=== PATIENT | female | born 1975 | race Caucasian/White ===

== ENCOUNTER 2016-11-27 17:22 | Inpatient (IN) | payer OTHER, MEDICARE ==
[~2016-11-27] VITALS: Ht 160 cm; Wt 70.4 kg
[~2016-11-27 17:22] MED LIST: ACET500T33 PO; ACID1TAB14 PO; ACYC200C PO; ALPR0.25; AMLO10TA2 PO; BENZ100C2 PO; CEFA2PLA9 IV; CLON0.2T PO; CLON0.3T PO; DARB60DI SQ; DIAZ2TAB3; DICL1PAT4 TD; DICY20TA3 PO; DIPH50CA62 PO; FLUT1DIS3 IH; FOLI1CAP10 PO; FURO40TA4 PO; FURO80TA3 PO; FURO80TA72 PO; HYDR-2666; HYDR-2762 PO; ISOS30TA4 PO; LEVO500T38 PO; LIDO30CR TP; LISI10TA2 PO; LOPE2CAP PO; LORA0.5T; LORA10CA; LORA10CA PO; LORA1TAB PO; METH750T2 PO; NYST1000 PO; ONDA-36 PO; OXYC10TA PO; PARO20TA2 PO; PRED-220 PO; PRED20TA PO; PREG50CA PO; PROAIR HFA8.5 GM INH; SEVE800T9; SEVE800T9 PO; SODI15OR PO; [UNRECOGNIZED DRUG - OTHER] SQ; acyclovir; sleeping pill PO
[2016-11-27] MEDS ORDERED: IV NORMAL SALINE 1000ML BAG 1,000 ML IV SCH (19:01)
[2016-11-27] MEDS ORDERED: methylPREDNISolone SOD SUCC PF 125 MG/2 ML VIAL. IV ONE (19:30)
[2016-11-27] MEDS ORDERED: IPRATRPIUM/ALBUTEROL 0.5/2.5MG 3 ML NEBU. NEB ONE (19:30)
[2016-11-27 19:57] LABS: CALCIUM 8.2 mg/dL (8.5-10.1); CREATININE 4.3 mg/dL (0.6-1.0); GFR 11.4; POTASSIUM 3.7 mmol/L (3.5-5.1)
[2016-11-27 20:03] LABS: ALBUMIN 3.1 g/dL (3.4-5.0); ALBUMIN/GLOBULIN RATIO 0.9 (1.0-1.7); BASO % 0 % (0-3); EOS % 1 % (0-3); HEMATOCRIT 31.4 % (36.0-47.0); HEMOGLOBIN 9.4 g/dL (12.0-15.5); LYMPH # 1.5 x10^3/uL (1.0-4.8); LYMPH % 19 % (24-48); MEAN CORPUSCULAR HEMOGLOBIN 31 pg (25-35); MEAN CORPUSCULAR HGB CONC 30 g/dL (31-37); MEAN CORPUSCULAR VOLUME 104 fL (79-100); MONO % 7 % (0-9); NEUT % 73 % (31-73); PLATELET COUNT 140 x10^3/uL (140-400); RED BLOOD COUNT 3.03 x10^6/uL (3.50-5.40); RED CELL DISTRIBUTION WIDTH 20.3 % (11.5-14.5); TOTAL BILIRUBIN 0.9 mg/dL (0.2-1.0); TOTAL PROTEIN 6.7 g/dL (6.4-8.2); WHITE BLOOD COUNT 7.7 x10^3/uL (4.0-11.0)
[2016-11-27 20:11] LABS: CKMB INDEX 4.2 % (0-4); CKMB MASS 3.9 ng/mL (0.0-3.6); CREATINE KINASE 92 U/L (26-192)
[2016-11-27] MEDS ORDERED: HYDROCODONE/APAP 7.5/325MG TABLET. PO ONE (20:15)
[2016-11-27 20:35] LABS: ANISOCYTOSIS MOD; HYPOCHROMIA SLIGHT; PLT ESTIMATE ADEQUATE (ADEQUATE); POIKILOCYTOSIS SLIGHT; POLYCHROMASIA SLIGHT
--- NOTE | 2016-11-27 20:52 | PHYS DOC ---
Past Medical History Past Medical History: Anxiety, Asthma, Cancer, Depression, Fibromyalgia, Hypertension, Pneumonia, Renal Disease, Renal Failure, Other Additional Past Medical Histor: Dialysis,Multiple Myeloma with Chemotherapy Past Surgical History: Cholecystectomy, Gastric Bypass, Tubal ligation, Other Additional Past Surgical Histo: L) upper arm fistula placement, Bone Marrow Transplant Alcohol Use: None Drug Use: None Adult General Chief Complaint Chief Complaint: SHORTNESS OF BREATH HPI HPI Patient is a 41 year old female who presents with complaint of shortness of breath. The patient states that over the past 2 days she has had worsening symptoms. The patient states that she is had significant worsening difficulty breathing and cough. Patient denies any fevers or chest pain at this time. The patient has history of end-stage renal disease and has dialysis on Sunday, Sunday, and Sunday. Patient states that she did get dialysis earlier today before coming to the emergency department. Patient follows a Dr. Howard for primary care. Patient is currently undergoing treatment for multiple myeloma. Review of Systems Review of Systems Constitutional: Denies fever or chills [] Eyes: Denies change in visual acuity, redness, or eye pain [] HENT: Denies nasal congestion or sore throat [] Respiratory: Cough, shortness of breath [] Cardiovascular: Denies chest pain [] GI: Denies abdominal pain, nausea, vomiting, bloody stools or diarrhea [] : Denies dysuria or hematuria [] Musculoskeletal: Denies back pain or joint pain [] Integument: Denies rash or skin lesions [] Neurologic: Denies headache, focal weakness or sensory changes [] Endocrine: Denies polyuria or polydipsia [] Current Medications Current Medications Current Medications Medications (Trade) Dose Ordered Sig/Jamila Start Time Stop Time Status Last Admin Dose Admin Acetaminophen (Tylenol) 650 mg PRN Q4HRS PRN 11/27/16 22:30 11/28/16 22:29 Acetaminophen/ Hydrocodone Bitart (Lortab 7.5/325) 1 tab 1X ONCE 11/27/16 20:15 11/27/16 20:17 DC 11/27/16 20:29 1 TAB Albuterol/ Ipratropium (Duoneb) 3 ml RTQID 11/28/16 08:00 11/29/16 07:59 Amlodipine Besylate (Norvasc) 10 mg 1X ONCE 11/27/16 21:15 2/6/17 21:16 DC 11/27/16 21:08 10 MG Clonidine HCl (Catapres) 0.3 mg 1X ONCE 11/27/16 21:15 11/27/16 21:16 DC 11/27/16 21:09 0.3 MG Diphenhydramine HCl (Benadryl) 25 mg 1X ONCE 11/27/16 23:00 11/27/16 23:01 DC 11/27/16 23:30 25 MG Fentanyl Citrate (Fentanyl 2ml Vial) 50 mcg PRN Q2HR PRN 11/27/16 22:30 11/28/16 22:29 11/27/16 23:30 50 MCG Lisinopril (Prinivil) 10 mg 1X ONCE 11/27/16 21:15 11/27/16 21:16 DC 11/27/16 21:09 10 MG Methylprednisolone Sodium Succinate (Solu-Medrol 40mg Vial) 60 mg Q6HRS 11/28/16 00:00 Methylprednisolone Sodium Succinate (Solu-Medrol 125mg Vial) 125 mg 1X ONCE 11/27/16 19:30 11/27/16 19:31 DC 11/27/16 19:49 125 MG Ondansetron HCl (Zofran) 4 mg PRN Q8HRS PRN 11/27/16 22:30 11/28/16 22:29 Sodium Chloride (Iv Sodium Chloride 0.9% 1000ml Bag) 1,000 ml @ 100 mls/hr Q10H 11/27/16 19:01 11/28/16 05:00 11/27/16 19:49 100 MLS/HR Allergies Allergies Allergies Coded Allergies Type Severity Reaction Last Updated Verified Sulfa (Sulfonamide Antibiotics) Allergy Intermediate Hives 04/26/16 Yes sucralose Allergy Intermediate hives & itching 04/26/16 Yes codeine Adverse Reaction Intermediate ITCHING, PREVIOUSLY TOLERATED DILAUDID Yes Physical Exam Physical Exam Constitutional: Well developed, well nourished, no acute distress, non-toxic appearance. [] HENT: Normocephalic, atraumatic, bilateral external ears normal, oropharynx moist, no oral exudates, nose normal. [] Eyes: PERRLA, EOMI, conjunctiva normal, no discharge. [] Neck: Normal range of motion, no tenderness, supple, no stridor. [] Cardiovascular:Heart rate regular rhythm, no murmur [] Lungs & Thorax: Bilateral breath sounds clear to auscultation [] Abdomen: Bowel sounds normal, soft, no tenderness, no masses, no pulsatile masses. [] Skin: Warm, dry, no erythema, no rash. [] Back: No tenderness, no CVA tenderness. [] Extremities: No tenderness, no cyanosis, no clubbing, ROM intact, no edema. [] Neurologic: Alert and oriented X 3, normal motor function, normal sensory function, no focal deficits noted. [] Psychologic: Affect normal, judgement normal, mood normal. [] Current Patient Data Vital Signs Vital Signs Date Time Temp Pulse Resp B/P Pulse Ox O2 Delivery O2 Flow Rate FiO2 11/27/16 23:30 16 11/27/16 22:08 105 177/92 96 Room Air 11/27/16 21:06 4 11/27/16 19:18 98.9 98.9 Lab Values Laboratory Tests Test 11/27/16 19:35 11/27/16 21:30 White Blood Count 7.7x10^3/uL (4.0-11.0) Red Blood Count 3.03x10^6/uL (3.50-5.40) L Hemoglobin 9.4g/dL (12.0-15.5) L Hematocrit 31.4% (36.0-47.0) L Mean Corpuscular Volume 104fL (79-100) H Mean Corpuscular Hemoglobin 31pg (25-35) Mean Corpuscular Hemoglobin Concent 30g/dL (31-37) L Red Cell Distribution Width 20.3% (11.5-14.5) H Platelet Count 140x10^3/uL (140-400) Neutrophils (%) (Auto) 73% (31-73) Lymphocytes (%) (Auto) 19% (24-48) L Monocytes (%) (Auto) 7% (0-9) Eosinophils (%) (Auto) 1% (0-3) Basophils (%) (Auto) 0% (0-3) Neutrophils # (Auto) 5.6x10^3uL (1.8-7.7) Lymphocytes # (Auto) 1.5x10^3/uL (1.0-4.8) Monocytes # (Auto) 0.5x10^3/uL (0.0-1.1) Eosinophils # (Auto) 0.1x10^3/uL (0.0-0.7) Basophils # (Auto) 0.0x10^3/uL (0.0-0.2) Platelet Estimate Adequate (ADEQUATE) Polychromasia Slight Hypochromasia Slight Poikilocytosis Slight Anisocytosis Mod Sodium Level 140mmol/L (136-145) Potassium Level 3.7mmol/L (3.5-5.1) Chloride Level 102mmol/L (98-107) Carbon Dioxide Level 24mmol/L (21-32) Anion Gap 14 (6-14) Blood Urea Nitrogen 32mg/dL (7-20) H Creatinine 4.3mg/dL (0.6-1.0) H Estimated GFR (Cockcroft-Gault) 11.4 BUN/Creatinine Ratio 7 (6-20) Glucose Level 104mg/dL (70-99) H Calcium Level 8.2mg/dL (8.5-10.1) L Total Bilirubin 0.9mg/dL (0.2-1.0) Aspartate Amino Transferase (AST) 28U/L (15-37) Alanine Aminotransferase (ALT) 18U/L (14-59) Alkaline Phosphatase 158U/L (46-116) H Creatine Kinase 92U/L (26-192) Creatine Kinase MB (Mass) 3.9ng/mL (0.0-3.6) H Creatine Kinase MB Relative Index 4.2% (0-4) H Troponin I Quantitative 0.084ng/mL (0.000-0.055) CO-Pkv-A-Type Natriuretic Peptide > 60529tv/mL (0-124) H Total Protein 6.7g/dL (6.4-8.2) Albumin 3.1g/dL (3.4-5.0) L Albumin/Globulin Ratio 0.9 (1.0-1.7) L Influenza Type A Antigen Negative (NEGATIVE) Influenza Type B Antigen Negative (NEGATIVE) Laboratory Tests 11/27/16 19:35 Laboratory Tests 11/27/16 19:35 EKG EKG Interpreted by me: Heart rate 98, sinus tachycardia, normal intervals, normal axis, no acute ST/T-wave abnormalities present [] Radiology/Procedures Radiology/Procedures One view AP chest x-ray interpreted by me: Bilateral pleural effusions, right lower lobe atelectasis, cardiomegaly [] Course & Med Decision Making Course & Med Decision Making Pertinent Labs and Imaging studies reviewed. (See chart for details) Patient was treated with DuoNeb and Solu-Medrol in the emergency department. On reevaluation, patient still displays increased work of breathing with mild improvement posttreatment. Due to persistent shortness of breath, the patient will be admitted to the hospital for further treatment. Patient is also noted to have accelerated hypertension. Patient was treated with lisinopril, amlodipine, and clonidine which is her normal evening meds. This resulted in a 25% reduction in blood pressure. Patient will have continued management of blood pressure while in hospital. I spoke with Dr. Gunderson who is on-call for Dr. Howard and he accepted care patient in hospital. Dragon Disclaimer Dragon Disclaimer This electronic medical record was generated, in whole or in part, using a voice recognition dictation system. Departure Departure Impression: Primary Impression: COPD with acute exacerbation Additional Impressions: Accelerated hypertension End stage renal disease Bilateral pleural effusion Disposition: ADMITTED INPATIENT Admitting Physician: Geri Cardenas Condition: GUARDED Referrals: GERI HOWARD MD (PCP) Problem Qualifiers CALVIN GARCIA MD Nov 27, 2016 20:52
[2016-11-27] MEDS ORDERED: AMLODIPINE BESYLATE 5 MG TABLET PO ONE (21:15)
[2016-11-27] MEDS ORDERED: CLONIDINE HCL 0.1 MG TABLET PO ONE (21:15)
[2016-11-27] MEDS ORDERED: LISINOPRIL 10 MG TABLET PO ONE (21:15)
[2016-11-27 22:10] LABS: OBC FLU VALID
[2016-11-27] MEDS ORDERED: ACETAMINOPHEN 325 MG TABLET. PO PRN (22:30)
[2016-11-27] MEDS ORDERED: DIPHENHYDRAMINE 50 MG/ML VIAL IVP ONE (23:00)
[2016-11-27] MEDS: FENTANYL PF 100 MCG/2 ML VIAL. IV PRN (23:30)
--- NOTE | 2016-11-28 00:29 | ACF ---
Admission Forms Criteria COPD Clinical Indications for Admission to Inpatient Care (Place 'X' for any and all applicable criteria): Admission is indicated for ANY ONE of the following (1)(2)(3): [X]I. Acute exacerbation by high-risk comorbidity (e.g., pneumonia, dysrhythmia, heart failure, pleural effusion, pneumothorax) or severe underlying COPD (e.g., steroid dependent) [ ]II. Inpatient admission required rather than observation care (see Chronic Obstructive Pulmonary Disease: Observation Care) because of ANY ONE of the following: [ ]a) New or pre-existing signs or symptoms of COPD (eg, dyspnea or Tachypnea at rest or with minimal activity) that persist despite outpatient and observation care treatment [ ]b) New-onset hypoxemia (room air SaO2 less than 90%, PO2 less than 60 mm Hg (8.0 kPa)) that persists despite outpatient and observation care treatment [ ]c) Worsening of pre-existing hypoxemia (eg, new or increased requirement for supplemental oxygen to maintain oxygenation at baseline level) that persists despite outpatient and observation care treatment, with oxygen treatment needs performable only in acute inpatient setting [ ]d) Hypercarbia (PCO2 greater than 40 mm Hg (5.3 kPa))-induced respiratory acidosis (pH less than 7.35) that persists despite outpatient and observation care treatment [ ]e) Supplemental oxygen or respiratory treatments for over 24 hours that are performable only in acute inpatient setting [ ]f) Chest tube placement with active evacuation (e.g., suction, drainage) (5) [ ]g) Other condition, treatment or monitoring requiring inpatient admission [ ]III. Planned invasive surgical or diagnostic procedures requiring acute- care hospitalization [ ]IV. Acute respiratory failure (e.g., uncompensated hypercarbia, severe hypoxemia) [ ]V. Severe comorbid condition (e.g., severe steroid myopathy, acute vertebral fracture) that has acutely worsened pulmonary function [ ]. Confusion state, lethargy, obtundation, stupor or coma Extended stay beyond goal length of stay may be needed for (31)(32): [ ]a ) Respiratory Failure. [ ]b) Severe or persisting hypoxemia or hypercarbia [ ]c) Severe or persistent dyspnea [ ]d) Comorbidities (e.g. chronic heart failure, atrial fibrillation with rapid response, pneumonia) [ ]e) Malnutrition The original [facility] content created by [facility] has been revised. The portions of the content which have been revised are identified through the use of italic text or in bold, and [facility] has neither reviewed nor approved the modified material. All other unmodified content is copyright [facility]. Please see references footnoted in the original [facility] edition 2016 Admission Criteria Met?: Yes NARENDRA OWENS Nov 28, 2016 00:29
[2016-11-28 01:35] VITALS: BP 170/94
[2016-11-28] MEDS: DIPHENHYDRAMINE 50 MG/ML VIAL IVP PRN ×3 (02:02→15:45)
[2016-11-28] MEDS: FENTANYL PF 100 MCG/2 ML VIAL. IV PRN ×7 (02:03→21:31)
[2016-11-28] MEDS: methylPREDNISolone SOD SUCC PF 40 MG/ML VIAL. IV SCH ×5 (02:03→23:48)
[2016-11-28 03:00] VITALS: BP 163/89
[2016-11-28] MEDS: ALBUTEROL SULFATE 2.5 MG/3 ML NEBU. NEB PRN (05:17)
[2016-11-28 07:06] LABS: BASO % 0 % (0-3); EOS % 0 % (0-3); HEMATOCRIT 32.9 % (36.0-47.0); HEMOGLOBIN 9.8 g/dL (12.0-15.5); LYMPH # 0.4 x10^3/uL (1.0-4.8); LYMPH % 11 % (24-48); MEAN CORPUSCULAR HEMOGLOBIN 31 pg (25-35); MEAN CORPUSCULAR HGB CONC 30 g/dL (31-37); MEAN CORPUSCULAR VOLUME 103 fL (79-100); MONO % 1 % (0-9); NEUT % 89 % (31-73); PLATELET COUNT 140 x10^3/uL (140-400); RED BLOOD COUNT 3.19 x10^6/uL (3.50-5.40); RED CELL DISTRIBUTION WIDTH 20.4 % (11.5-14.5); WHITE BLOOD COUNT 3.5 x10^3/uL (4.0-11.0)
[2016-11-28] MEDS ORDERED: ACETAMINOPHEN 500 MG TABLET PO PRN (07:15)
[2016-11-28] MEDS ORDERED: LOPERAMIDE 2 MG CAPSULE PO PRN (07:15)
[2016-11-28] MEDS ORDERED: NON FORMULARY ITEM (Ondansetron Hcl 8 MG) PO PRN (07:15)
[2016-11-28] MEDS ORDERED: LIDOCAINE/PRILOCAINE TOPICAL CREAM 5GM TUBE. TP PRN (07:15)
[2016-11-28 07:41] LABS: CALCIUM 8.5 mg/dL (8.5-10.1); CREATININE 4.8 mg/dL (0.6-1.0); POTASSIUM 4.1 mmol/L (3.5-5.1)
[2016-11-28] MEDS ORDERED: DICYCLOMINE HCL 10 MG CAPSULE PO PRN (07:45)
[2016-11-28 07:59] VITALS: BP 183/99
[2016-11-28] MEDS: IPRATRPIUM/ALBUTEROL 0.5/2.5MG 3 ML NEBU. NEB SCH ×4 (08:22→19:22)
[2016-11-28] MEDS: BUDESONIDE 0.5 MG/2 ML NEBU NEB SCH ×2 (08:22→19:22)
--- NOTE | 2016-11-28 08:25 | RAD ---
Indication shortness of air. A single view of the chest was obtained and is compared to an examination 2 months earlier. There is generalized cardiomegaly. Similar. There is perhaps mild pulmonary vascular congestion but pulmonary infiltrates, seen previously, appear improved. There are bilateral pleural effusions. Volume loss in the left lower lobe may reflect atelectasis associated with the pleural fluid. Underlying pneumonia is not entirely excluded. IMPRESSION: Stable cardiomegaly. Suspect mild pulmonary vascular congestion. Bilateral pleural effusions. Volume loss in the left lower lobe compatible with atelectasis or pneumonia
--- NOTE | 2016-11-28 08:34 | PDOC1 ---
History and Physical Date of Admission Date of Admission DATE: 11/27/16 TIME: 21:28 Identification/Chief Complaint Chief Complaint SOA Source Source: Patient Past Medical History Cardiovascular: HTN Pulmonary: Asthma, Pneumonia, Other CENTRAL NERVOUS SYSTEM: Other GI: GERD, Hemorrhoids, Irritable bowel disease Heme/Onc: Anemia NOS, Cancer Hepatobiliary: No pertinent hx Psych: Anxiety, Depression Musculoskeletal: Osteoarthritis, Other Rheumatologic: Fibromyalgia Infectious disease: Other Renal/: Chronic renal failure, Urinary Incontinence Endocrine: Hyperparathyroidism Past Surgical History Past Surgical History: Cholecystectomy, Tubal Ligation, Other Family History Family History: Hypertension, Osteo Arthiritis Social History ALCOHOL: none Drugs: None Current Problem List Problem List Problems Medical Problems: (1) Accelerated hypertension Status: Acute (2) Bilateral pleural effusion Status: Acute (3) COPD with acute exacerbation Status: Acute (4) End stage renal disease Status: Acute Problems: Current Medications Current Medications Current Medications Sodium Chloride (Iv Sodium Chloride 0.9% 1000ml Bag) 1,000 ml @ 100 mls/hr Q10H IV Last administered on 11/27/16 19:49; Start 11/27/16 at 19:01; Stop at 05:00; Status DC Albuterol/ Ipratropium (Duoneb) 6 ml 1X ONCE NEB Last administered on 19:10; Start 11/27/16 at 19:30; Stop 11/27/16 at 19:31; Status DC Methylprednisolone Sodium Succinate (Solu-Medrol 125mg Vial) 125 mg 1X ONCE IV Last administered on 11/27/16 19:49; Start 11/27/16 at 19:30; Stop 11/27/16 at 19:31; Status DC Acetaminophen/ Hydrocodone Bitart (Lortab 7.5/325) 1 tab 1X ONCE PO Last administered on 11/27/16 20:29; Start 11/27/16 at 20:15; Stop 11/27/16 at 20:17; Status DC Lisinopril (Prinivil) 10 mg 1X ONCE PO Last administered on 11/27/16 21:09; Start 11/27/16 at 21:15; Stop 11/27/16 at 21:16; Status DC Amlodipine Besylate (Norvasc) 10 mg 1X ONCE PO Last administered on 11/27/16 21:08; Start 11/27/16 at 21:15; Stop 11/27/16 at 21:16; Status DC Clonidine HCl (Catapres) 0.3 mg 1X ONCE PO Last administered on 11/27/16 21:09 ; Start 11/27/16 at 21:15; Stop 11/27/16 at 21:16; Status DC Ondansetron HCl (Zofran) 4 mg PRN Q8HRS PRN IV NAUSEA/VOMITING; Start 11/27/16 at 22:30; Stop 11/28/16 at 22:29 Fentanyl Citrate (Fentanyl 2ml Vial) 50 mcg PRN Q2HR PRN IV SEVERE PAIN Last administered on 11/28/16 05:02; Start 11/27/16 at 22:30; Stop 11/28/16 at 22:29 Acetaminophen (Tylenol) 650 mg PRN Q4HRS PRN PO FEVER; Start 11/27/16 at 22:30; Stop 11/28/16 at 22:29 Albuterol/ Ipratropium (Duoneb) 3 ml RTQID NEB Last administered on 11/28/16 08 :22; Start 11/28/16 at 08:00; Stop 11/29/16 at 07:59 Methylprednisolone Sodium Succinate (Solu-Medrol 40mg Vial) 60 mg Q6HRS IV Last administered on 11/28/16 05:02; Start 11/28/16 at 00:00 Diphenhydramine HCl (Benadryl) 25 mg 1X ONCE IVP Last administered on 23:30; Start 11/27/16 at 23:00; Stop 11/27/16 at 23:01; Status DC Diphenhydramine HCl (Benadryl) 25 mg PRN Q6HRS PRN IVP ITCHING Last administered on 11/28/16 02:02; Start 11/28/16 at 02:00 Albuterol Sulfate (Ventolin Neb Soln) 2.5 mg PRN Q4HRS PRN NEB SHORTNESS OF BREATH Last administered on 11/28/16 05:17; Start 11/28/16 at 05:15 Acetaminophen (Tylenol) 500 mg PRN Q6HRS PRN PO PAIN; Start 11/28/16 at 07:15 Lactobacillus Acidophilus (Bacid, Maren-Bid) 1 tab TIDWMEALS PO ; Start 11/28/16 at 08:00 Acyclovir (Zovirax) 200 mg BID PO ; Start 11/28/16 at 09:00 Amlodipine Besylate (Norvasc) 10 mg HS PO ; Start 11/28/16 at 21:00 Clonidine HCl (Catapres) 0.3 mg TID PO ; Start 11/28/16 at 09:00 Darbepoetin Apolinar (Aranesp) 60 mcg Tu SQ ; Start 11/28/16 at 21:00 Diclofenac Epolamine (Flector) 1 patch BID TD ; Start 11/28/16 at 09:00; Status UNV Furosemide (Lasix) 80 mg TID@,,17 PO ; Start 11/28/16 at 09:00 Acetaminophen/ Hydrocodone Bitart (Lortab 7.5/325) 1 tab PRN Q4HRS PRN PO SEVERE PAIN; Start 11/28/16 at 07:15 Isosorbide Mononitrate (Imdur) 30 mg DAILY PO ; Start 11/28/16 at 09:00 Lidocaine/ Prilocaine (Emla) 1 oniel PRN QID PRN TP pain; Start 11/28/16 at 07:15 Lisinopril (Prinivil) 10 mg DAILY PO ; Start 11/28/16 at 09:00 Loperamide HCl (Imodium) 2 mg PRN Q15MIN PRN PO DIARRHEA; Start 11/28/16 at 07: 15 Lorazepam (Ativan) 1 mg PRN Q6HRS PRN PO VOMITING; Start 11/28/16 at 07:15 Methocarbamol (Robaxin) 1,500 mg PRN QID PRN PO SEVERE PAIN; Start 11/28/16 at 07:15 Paroxetine HCl (Paxil) 20 mg QHS PO ; Start 11/28/16 at 21:00 Sevelamer Carbonate (Renvela) 800 mg TIDWMEALS PO ; Start 11/28/16 at 08:00 Dicyclomine HCl (Bentyl) 20 mg PRN TID PRN PO Stomach pain; Start 11/28/16 at 07 :45 Diphenhydramine HCl (Benadryl) 50 mg QHS PO ; Start 11/28/16 at 21:00 Non-Formulary Medication 2 puff DAILY IH ; Start 11/28/16 at 09:00; Stop 11/28/16 at 09:00; Status DC Folic Acid/ Multivitamins/Vit B12 (Nephro-Sheree) 1 tab DAILY PO ; Start 11/28/16 at 09:00 Cetirizine HCl (Zyrtec) 10 mg QHS PO ; Start 11/28/16 at 21:00 Non-Formulary Medication 8 mg PRN BID PRN PO NAUSEA/VOMITING; Start 11/28/16 at 07:15 Budesonide (Pulmicort) 0.5 mg RTBID NEB Last administered on 11/28/16t 08:22; Start 11/28/16 at 08:00 Active Scripts Active Levaquin (Levofloxacin) 500 Mg Tablet 500 Mg PO Q48H Lisinopril 10 Mg Tablet 10 Mg PO DAILY 30 Days Hydrocodone-Apap 7.5-325 (Hydrocodone Bit/Acetaminophen) 1 Each Tablet 1 Tab PO PRN Q4HRS PRN 14 Days Flector (Diclofenac Epolamine) 1 Each Patch.td12 1 Patch TD BID 30 Days Aranesp Syringe (Darbepoetin Apolinar In Polysorbat) 60 Mcg/0.3 Ml Disp.syrin 60 Mcg SQ WEEKLYHS 30 Days Furosemide 80 Mg Tablet 80 Mg PO TID 30 Days Loperamide (Loperamide Hcl) 2 Mg Capsule 2 Mg PO PRN Q15MIN PRN 30 Days Isosorbide Mononitrate Er (Isosorbide Mononitrate) 30 Mg Tab.er.24h 30 Mg PO DAILY 30 Days Maren-Bid Caplet (Acidoph/L.bulg/Bif.b/S.thermop) 1 Each Tablet 1 Tab PO TIDWMEALS 30 Days Reported Lorazepam 1 Mg Tablet 1 Mg PO PRN Q6HRS PRN Renvela (Sevelamer Carbonate) 800 Mg Tablet 2 Tab PO TID Lidocaine-Prilocaine Cream (Lidocaine/Prilocaine) 30 Gm Cream..g. 1 Oniel TP UD Dicyclomine Hcl 20 Mg Tablet 1 Tab PO TID PRN Clonidine Hcl 0.3 Mg Tablet 0.3 Mg PO TID Amlodipine Besylate 10 Mg Tablet 10 Mg PO HS Renal Caps Softgel (Folic Acid/Vitamin B Comp W-C) 1 Mg Capsule 1 Cap PO DAILY Advair 250-50 Diskus (Fluticasone/Salmeterol) 1 Each Disk.w.dev 2 Puff IH DAILY Proair Hfa Inhaler (Albuterol Sulfate) 8.5 Gm Hfa.aer.ad 2 Puff INH PRN Q6HRS PRN Acyclovir 200 Mg Capsule 200 Mg PO BID Paroxetine Hcl 20 Mg Tablet 20 Mg PO QHS Nighttime Sleep Aid (Diphenhydramine Hcl) 50 Mg Capsule 50 Mg PO QHS Ondansetron Hcl 8 Mg Tablet 8 Mg PO BID PRN Methocarbamol 750 Mg Tablet 1,500 Mg PO QID PRN Tylenol Extra Strength (Acetaminophen) 500 Mg Tablet 500 Mg PO Q6HRS PRN Claritin (Loratadine) 10 Mg Capsule 10 Mg PO HS Allergies Allergies: Coded Allergies: Sulfa (Sulfonamide Antibiotics) (Verified Allergy, Intermediate, Hives, 04/26/16) sucralose (Verified Allergy, Intermediate, hives & itching, 04/26/16) codeine (Verified Adverse Reaction, Intermediate, ITCHING, PREVIOUSLY TOLERATED DILAUDID, 04/26/16) Vitals Vitals Vital Signs Date Time Temp Pulse Resp B/P Pulse Ox O2 Delivery O2 Flow Rate FiO2 11/28/16 05:50 Nasal Cannula 4.0 11/28/16 05:18 100 11/28/16 03:00 97.6 107 20 163/89 97.6 Labs Labs Laboratory Tests Test 11/27/16 19:35 11/27/16 21:30 11/28/16 06:05 White Blood Count 7.7x10^3/uL (4.0-11.0) 3.5x10^3/uL (4.0-11.0) Red Blood Count 3.03x10^6/uL (3.50-5.40) 3.19x10^6/uL (3.50-5.40) Hemoglobin 9.4g/dL (12.0-15.5) 9.8g/dL (12.0-15.5) Hematocrit 31.4% (36.0-47.0) 32.9% (36.0-47.0) Mean Corpuscular Volume 104fL (79-100) 103fL (79-100) Mean Corpuscular Hemoglobin 31pg (25-35) 31pg (25-35) Mean Corpuscular Hemoglobin Concent 30g/dL (31-37) 30g/dL (31-37) Red Cell Distribution Width 20.3% (11.5-14.5) 20.4% (11.5-14.5) Platelet Count 140x10^3/uL (140-400) 140x10^3/uL (140-400) Neutrophils (%) (Auto) 73% (31-73) 89% (31-73) Lymphocytes (%) (Auto) 19% (24-48) 11% (24-48) Monocytes (%) (Auto) 7% (0-9) 1% (0-9) Eosinophils (%) (Auto) 1% (0-3) 0% (0-3) Basophils (%) (Auto) 0% (0-3) 0% (0-3) Neutrophils # (Auto) 5.6x10^3uL (1.8-7.7) 3.1x10^3uL (1.8-7.7) Lymphocytes # (Auto) 1.5x10^3/uL (1.0-4.8) 0.4x10^3/uL (1.0-4.8) Monocytes # (Auto) 0.5x10^3/uL (0.0-1.1) 0.0x10^3/uL (0.0-1.1) Eosinophils # (Auto) 0.1x10^3/uL (0.0-0.7) 0.0x10^3/uL (0.0-0.7) Basophils # (Auto) 0.0x10^3/uL (0.0-0.2) 0.0x10^3/uL (0.0-0.2) Platelet Estimate Adequate (ADEQUATE) Polychromasia Slight Hypochromasia Slight Poikilocytosis Slight Anisocytosis Mod Sodium Level 140mmol/L (136-145) 136mmol/L (136-145) Potassium Level 3.7mmol/L (3.5-5.1) 4.1mmol/L (3.5-5.1) Chloride Level 102mmol/L (98-107) 99mmol/L (98-107) Carbon Dioxide Level 24mmol/L (21-32) 22mmol/L (21-32) Anion Gap 14 (6-14) 15 (6-14) Blood Urea Nitrogen 32mg/dL (7-20) 38mg/dL (7-20) Creatinine 4.3mg/dL (0.6-1.0) 4.8mg/dL (0.6-1.0) Estimated GFR (Cockcroft-Gault) 11.4 10.0 BUN/Creatinine Ratio 7 (6-20) Glucose Level 104mg/dL (70-99) 133mg/dL (70-99) Calcium Level 8.2mg/dL (8.5-10.1) 8.5mg/dL (8.5-10.1) Total Bilirubin 0.9mg/dL (0.2-1.0) Aspartate Amino Transf (AST/SGOT) 28U/L (15-37) Alanine Aminotransferase (ALT/SGPT) 18U/L (14-59) Alkaline Phosphatase 158U/L (46-116) Creatine Kinase 92U/L (26-192) Creatine Kinase MB (Mass) 3.9ng/mL (0.0-3.6) Creatine Kinase MB Relative Index 4.2% (0-4) Troponin I Quantitative 0.084ng/mL (0.000-0.055) DE-Hzr-I-Type Natriuretic Peptide > 65170fx/mL (0-124) Total Protein 6.7g/dL (6.4-8.2) Albumin 3.1g/dL (3.4-5.0) Albumin/Globulin Ratio 0.9 (1.0-1.7) Influenza Type A Antigen Negative (NEGATIVE) Influenza Type B Antigen Negative (NEGATIVE) Laboratory Tests Test 11/27/16 19:35 11/27/16 21:30 11/28/16 06:05 White Blood Count 7.7x10^3/uL (4.0-11.0) 3.5x10^3/uL (4.0-11.0) Red Blood Count 3.03x10^6/uL (3.50-5.40) 3.19x10^6/uL (3.50-5.40) Hemoglobin 9.4g/dL (12.0-15.5) 9.8g/dL (12.0-15.5) Hematocrit 31.4% (36.0-47.0) 32.9% (36.0-47.0) Mean Corpuscular Volume 104fL (79-100) 103fL (79-100) Mean Corpuscular Hemoglobin 31pg (25-35) 31pg (25-35) Mean Corpuscular Hemoglobin Concent 30g/dL (31-37) 30g/dL (31-37) Red Cell Distribution Width 20.3% (11.5-14.5) 20.4% (11.5-14.5) Platelet Count 140x10^3/uL (140-400) 140x10^3/uL (140-400) Neutrophils (%) (Auto) 73% (31-73) 89% (31-73) Lymphocytes (%) (Auto) 19% (24-48) 11% (24-48) Monocytes (%) (Auto) 7% (0-9) 1% (0-9) Eosinophils (%) (Auto) 1% (0-3) 0% (0-3) Basophils (%) (Auto) 0% (0-3) 0% (0-3) Neutrophils # (Auto) 5.6x10^3uL (1.8-7.7) 3.1x10^3uL (1.8-7.7) Lymphocytes # (Auto) 1.5x10^3/uL (1.0-4.8) 0.4x10^3/uL (1.0-4.8) Monocytes # (Auto) 0.5x10^3/uL (0.0-1.1) 0.0x10^3/uL (0.0-1.1) Eosinophils # (Auto) 0.1x10^3/uL (0.0-0.7) 0.0x10^3/uL (0.0-0.7) Basophils # (Auto) 0.0x10^3/uL (0.0-0.2) 0.0x10^3/uL (0.0-0.2) Platelet Estimate Adequate (ADEQUATE) Polychromasia Slight Hypochromasia Slight Poikilocytosis Slight Anisocytosis Mod Sodium Level 140mmol/L (136-145) 136mmol/L (136-145) Potassium Level 3.7mmol/L (3.5-5.1) 4.1mmol/L (3.5-5.1) Chloride Level 102mmol/L (98-107) 99mmol/L (98-107) Carbon Dioxide Level 24mmol/L (21-32) 22mmol/L (21-32) Anion Gap 14 (6-14) 15 (6-14) Blood Urea Nitrogen 32mg/dL (7-20) 38mg/dL (7-20) Creatinine 4.3mg/dL (0.6-1.0) 4.8mg/dL (0.6-1.0) Estimated GFR (Cockcroft-Gault) 11.4 10.0 BUN/Creatinine Ratio 7 (6-20) Glucose Level 104mg/dL (70-99) 133mg/dL (70-99) Calcium Level 8.2mg/dL (8.5-10.1) 8.5mg/dL (8.5-10.1) Total Bilirubin 0.9mg/dL (0.2-1.0) Aspartate Amino Transf (AST/SGOT) 28U/L (15-37) Alanine Aminotransferase (ALT/SGPT) 18U/L (14-59) Alkaline Phosphatase 158U/L (46-116) Creatine Kinase 92U/L (26-192) Creatine Kinase MB (Mass) 3.9ng/mL (0.0-3.6) Creatine Kinase MB Relative Index 4.2% (0-4) Troponin I Quantitative 0.084ng/mL (0.000-0.055) ON-Zna-Z-Type Natriuretic Peptide > 38693nq/mL (0-124) Total Protein 6.7g/dL (6.4-8.2) Albumin 3.1g/dL (3.4-5.0) Albumin/Globulin Ratio 0.9 (1.0-1.7) Influenza Type A Antigen Negative (NEGATIVE) Influenza Type B Antigen Negative (NEGATIVE) VTE Prophylaxis Ordered VTE Prophylaxis Devices: Yes VTE Pharmacological Prophylaxi: Yes Assessment/Plan Assessment/Plan Full H&P dictated She is in the process of being cleared for parathyroidectomy but has developed a sinus induced COPD exac complicated by CHF, and access issues but was able to complete dialysis yesterday. Pulm, Renal, Cardilogy to see, not diabetic, has multiple myeloma Aden ELLIOTT MD Nov 28, 2016 08:34
[2016-11-28] MEDS ORDERED: SALMETEROL IH SCH (09:00)
[2016-11-28] MEDS ORDERED: DICLOFENAC EPOLAMINE 1.3% PATCH 5PATCH PACKET. TD SCH (09:00)
[2016-11-28] MEDS: FOLIC/VIT B COMP W-C (RENAL) TABLET. PO SCH (09:00)
[2016-11-28] MEDS: ONDANSETRON PF 4 MG/2 ML VIAL. IV PRN ×2 (09:00→18:24)
[2016-11-28] MEDS ORDERED: FLUTICASONE IH SCH (09:00)
[2016-11-28] MEDS: LISINOPRIL 10 MG TABLET PO SCH (09:01)
[2016-11-28] MEDS: CLONIDINE HCL 0.3 MG TABLET PO SCH ×3 (09:01→20:54)
[2016-11-28] MEDS: SEVELAMER CARBONATE 800 MG TABLET. PO SCH ×3 (09:02→18:15)
[2016-11-28] MEDS: FUROSEMIDE 80 MG TABLET PO SCH ×3 (09:02→18:15)
[2016-11-28] MEDS: ISOSORBIDE MONONITRATE ER 30 MG TAB.ER.24H PO SCH (09:02)
[2016-11-28] MEDS: LACTOBACILLUS ACIDOPH & BULGAR 1 TABLET. PO SCH ×3 (09:03→18:15)
[2016-11-28] MEDS: ACYCLOVIR 200 MG CAPSULE PO SCH ×2 (09:03→20:55)
--- NOTE | 2016-11-28 10:26 | PDOC2 ---
CARDIAC CONSULT DATE OF CONSULT Date of Consult DATE: 11/28/16 TIME: 10:14 REASON FOR CONSULT Reason for Consult: CHF REFERRING PHYSICIAN Referring Physician: SOURCE Source: Chart review, Patient HISTORY OF PRESENT ILLNESS HISTORY OF PRESENT ILLNESS This is a pleasant 41 yo female admitted for complains of SOA. Reports of 2 days of symptoms progressive. Positive for nocturnal cough with productive white sputum. Positive for orthopnea increasing with 1-2 pillows when sleeping for HOB. Increasing [place]. to SOA at rest. She has been gradually have been increasingly weak with deconditioning. Reports of nausea, bloating, tightening to thighs with peripheral edema. Complains of anorexia. She has been compliant with her medications including her antiHTN and diuretics. She is compliant with her dialysis schedule. Denies any chest pain but verbalized some occasional palpitations. No fever or chills. PAST MEDICAL HISTORY Past Medical History Cardiovascular: HTN, CHF, valve insufficiency Pulmonary: Respiratory failure, asthma, pneumonia CENTRAL NERVOUS SYSTEM: Other (No pertinent history) GI: GERD, Irritable bowel disease, ileus Heme/Onc: Cancer (multiple myeloma with chemotherapy) Hepatobiliary: No pertinent hx Psych: Anxiety, Depression Musculoskeletal: OA Rheumatologic: Fibromyalgia Infectious disease: Other (pertussis exposure) ENT: No pertinent hx Renal/: Chronic renal failure, Urinary Incontinence Endocrine: hyperparathyroidism Dermatology: No pertinent hx PAST SURGICAL HISTORY Past Surgical History Cholecystectomy, Tubal Ligation, Other (gastric bypass, Larm AV fistula, bone marrow transplant) FAMILY HISTORY Family History: Hypertension SOCIAL HISTORY Smoke: No ALCOHOL: none Drugs: None Lives: with Family CURRENT MEDICATIONS CURRENT MEDICATIONS Current Medications Medications (Trade) Dose Ordered Sig/Jamila Route PRN Reason Start Time Stop Time Status Last Admin Dose Admin Sodium Chloride (Iv Sodium Chloride 0.9% 1000ml Bag) 1,000 ml @ 100 mls/hr Q10H IV 11/27/16 19:01 11/28/16 05:00 DC 11/27/16 19:49 Albuterol/ Ipratropium (Duoneb) 6 ml 1X ONCE NEB 11/27/16 19:30 11/27/16 19:31 DC 11/27/16 19:10 Methylprednisolone Sodium Succinate (Solu-Medrol 125mg Vial) 125 mg 1X ONCE IV 11/27/16 19:30 11/27/16 19:31 DC 11/27/16 19:49 Acetaminophen/ Hydrocodone Bitart (Lortab 7.5/325) 1 tab 1X ONCE PO 11/27/16 20:15 11/27/16 20:17 DC 11/27/16 20:29 Lisinopril (Prinivil) 10 mg 1X ONCE PO 11/27/16 21:15 11/27/16 21:16 DC 11/27/16 21:09 Amlodipine Besylate (Norvasc) 10 mg 1X ONCE PO 11/27/16 21:15 11/27/16 21:16 DC 11/27/16 21:08 Clonidine HCl (Catapres) 0.3 mg 1X ONCE PO 11/27/16 21:15 11/27/16 21:16 DC 11/27/16 21:09 Ondansetron HCl (Zofran) 4 mg PRN Q8HRS PRN IV NAUSEA/VOMITING 11/27/16 22:30 11/28/16 22:29 11/28/16 09:00 Fentanyl Citrate (Fentanyl 2ml Vial) 50 mcg PRN Q2HR PRN IV SEVERE PAIN 11/27/16 22:30 11/28/16 22:29 11/28/16 09:09 Albuterol/ Ipratropium (Duoneb) 3 ml RTQID NEB 11/28/16 08:00 11/29/16 07:59 11/28/16 08:22 Methylprednisolone Sodium Succinate (Solu-Medrol 40mg Vial) 60 mg Q6HRS IV 11/28/16 00:00 11/28/16 05:02 Diphenhydramine HCl (Benadryl) 25 mg 1X ONCE IVP 11/27/16 23:00 11/27/16 23:01 DC 11/27/16 23:30 Diphenhydramine HCl (Benadryl) 25 mg PRN Q6HRS PRN IVP ITCHING 11/28/16 02:00 11/28/16 09:00 Albuterol Sulfate (Ventolin Neb Soln) 2.5 mg PRN Q4HRS PRN NEB SHORTNESS OF BREATH 11/28/16 05:15 11/28/16 05:17 Lactobacillus Acidophilus (Bacid, Maren-Bid) 1 tab TIDWMEALS PO 11/28/16 08:00 11/28/16 09:03 Acyclovir (Zovirax) 200 mg BID PO 11/28/16 09:00 11/28/16 09:03 Clonidine HCl (Catapres) 0.3 mg TID PO 11/28/16 09:00 11/28/16 09:01 Furosemide (Lasix) 80 mg TID@,, PO 11/28/16 09:00 11/28/16 09:02 Isosorbide Mononitrate (Imdur) 30 mg DAILY PO 11/28/16 09:00 11/28/16 09:02 Lisinopril (Prinivil) 10 mg DAILY PO 11/28/16 09:00 11/28/16 09:01 Sevelamer Carbonate (Renvela) 800 mg TIDWMEALS PO 11/28/16 08:00 11/28/16 09:02 Dicyclomine HCl (Bentyl) 20 mg PRN TID PRN PO Stomach pain 11/28/16 07:45 11/28/16 09:02 Folic Acid/ Multivitamins/Vit B12 (Nephro-Sheree) 1 tab DAILY PO 11/28/16 09:00 11/28/16 09:00 Budesonide (Pulmicort) 0.5 mg RTBID NEB 11/28/16 08:00 11/28/16 08:22 ALLERGIES ALLERGIES: Coded Allergies: Sulfa (Sulfonamide Antibiotics) (Verified Allergy, Intermediate, Hives, 04/26/16) sucralose (Verified Allergy, Intermediate, hives & itching, 04/26/16) codeine (Verified Adverse Reaction, Intermediate, ITCHING, PREVIOUSLY TOLERATED DILAUDID, 04/26/16) ROS Review of System 14 point ROS evaluated with pertinent positives noted per HPI PHYSICAL EXAM General: Alert, Oriented X3, Cooperative, mild distress HEENT: Atraumatic, Mucous membr. moist/pink Lungs: Other (bibasilr crackles with diuffse faint wheeze) Heart: Regular rate, Normal S1, Normal S2, Other (3/6 systolic murmur to LLS border; S3) Abdomen: Soft, No tenderness Extremities: No cyanosis, Other (1-2+ bilateral LE pitting edema) Skin: No breakdown, No significant lesion Neuro: Normal speech, Sensation intact Psych/Mental Status: Mental status NL, Mood NL MUSCULOSKELETAL: Osteoarthritic changes both hands VITALS VITALS Vital Signs Date Time Temp Pulse Resp B/P Pulse Ox O2 Delivery O2 Flow Rate FiO2 11/28/16 09:09 20 96 Nasal Cannula 4.0 11/28/16 09:02 105 183/99 11/28/16 07:59 98.7 98.7 LABS Lab: Laboratory Tests Test 11/27/16 19:35 11/27/16 21:30 11/28/16 06:05 White Blood Count 7.7x10^3/uL (4.0-11.0) 3.5x10^3/uL (4.0-11.0) Red Blood Count 3.03x10^6/uL (3.50-5.40) 3.19x10^6/uL (3.50-5.40) Hemoglobin 9.4g/dL (12.0-15.5) 9.8g/dL (12.0-15.5) Hematocrit 31.4% (36.0-47.0) 32.9% (36.0-47.0) Mean Corpuscular Volume 104fL (79-100) 103fL (79-100) Mean Corpuscular Hemoglobin 31pg (25-35) 31pg (25-35) Mean Corpuscular Hemoglobin Concent 30g/dL (31-37) 30g/dL (31-37) Red Cell Distribution Width 20.3% (11.5-14.5) 20.4% (11.5-14.5) Platelet Count 140x10^3/uL (140-400) 140x10^3/uL (140-400) Neutrophils (%) (Auto) 73% (31-73) 89% (31-73) Lymphocytes (%) (Auto) 19% (24-48) 11% (24-48) Monocytes (%) (Auto) 7% (0-9) 1% (0-9) Eosinophils (%) (Auto) 1% (0-3) 0% (0-3) Basophils (%) (Auto) 0% (0-3) 0% (0-3) Neutrophils # (Auto) 5.6x10^3uL (1.8-7.7) 3.1x10^3uL (1.8-7.7) Lymphocytes # (Auto) 1.5x10^3/uL (1.0-4.8) 0.4x10^3/uL (1.0-4.8) Monocytes # (Auto) 0.5x10^3/uL (0.0-1.1) 0.0x10^3/uL (0.0-1.1) Eosinophils # (Auto) 0.1x10^3/uL (0.0-0.7) 0.0x10^3/uL (0.0-0.7) Basophils # (Auto) 0.0x10^3/uL (0.0-0.2) 0.0x10^3/uL (0.0-0.2) Platelet Estimate Adequate (ADEQUATE) Polychromasia Slight Hypochromasia Slight Poikilocytosis Slight Anisocytosis Mod Sodium Level 140mmol/L (136-145) 136mmol/L (136-145) Potassium Level 3.7mmol/L (3.5-5.1) 4.1mmol/L (3.5-5.1) Chloride Level 102mmol/L (98-107) 99mmol/L (98-107) Carbon Dioxide Level 24mmol/L (21-32) 22mmol/L (21-32) Anion Gap 14 (6-14) 15 (6-14) Blood Urea Nitrogen 32mg/dL (7-20) 38mg/dL (7-20) Creatinine 4.3mg/dL (0.6-1.0) 4.8mg/dL (0.6-1.0) Estimated GFR (Cockcroft-Gault) 11.4 10.0 BUN/Creatinine Ratio 7 (6-20) Glucose Level 104mg/dL (70-99) 133mg/dL (70-99) Calcium Level 8.2mg/dL (8.5-10.1) 8.5mg/dL (8.5-10.1) Total Bilirubin 0.9mg/dL (0.2-1.0) Aspartate Amino Transf (AST/SGOT) 28U/L (15-37) Alanine Aminotransferase (ALT/SGPT) 18U/L (14-59) Alkaline Phosphatase 158U/L (46-116) Creatine Kinase 92U/L (26-192) Creatine Kinase MB (Mass) 3.9ng/mL (0.0-3.6) Creatine Kinase MB Relative Index 4.2% (0-4) Troponin I Quantitative 0.084ng/mL (0.000-0.055) LE-Wwj-S-Type Natriuretic Peptide > 30874wq/mL (0-124) Total Protein 6.7g/dL (6.4-8.2) Albumin 3.1g/dL (3.4-5.0) Albumin/Globulin Ratio 0.9 (1.0-1.7) Influenza Type A Antigen Negative (NEGATIVE) Influenza Type B Antigen Negative (NEGATIVE) ECHOCARDIOGRAM ECHOCARDIOGRAM <Conclusion> Left ventricle systolic function is low normal. EF 50%. Septal motion suggestive of conduction abnormality. Doppler and Color-flow revealed moderate mitral regurgitation. Doppler and Color Flow revealed moderate tricuspid regurgitation. There is moderate pulmonary hypertension. The PA pressure was estimated at 49 mmHg. DATE: 06/05/16 1359 STRESS TEST STRESS TEST Conclusion 1. Regadenoson cardioisotope stress test did not show any evidence of ischemia or infarct. 2. Low normal left ventricular systolic function with ejection fraction calculated at 51%. 3. Low risk for cardiac events. DATE: 06/06/16 1244 ASSESSMENT/PLAN ASSESSMENT/PLAN 1. Acute on chronic diastolic CHF likely induced by uncontrolled HTN 2. Accelerated HTN 3. ESRD: last HD yesterday 4. Multiple myeloma with current velcade (could contribute to arrhythmia and CHF ) 5. Palpitations: noted burst of brief SVT 6. Valvular insufficiency: Mod MR/TR 7. Macrocytic anemia with leukopenia 8. Asthma exacerbation, induced by CHF. 9. Severe deconditioning Recommendation 1. HD recommended but pt refusing today citing her SOA is a little better. 2. Lasix therapy per nephrology 3. TTE and EKG today 4. Will consider event monitor as an outpt. 5. Breathing treatment and steroids per PCP. 6. Restart home antiHTN. Add hydralazine. 7. PT/OT eval Problems: CHINO MOLINA APRN Nov 28, 2016 10:26
--- NOTE | 2016-11-28 10:42 | PDOC2 ---
CONSULT Date of Consult Date of Consult DATE: 11/28/16 TIME: 10:31 Reason for Consult Reason for Consult: ESRD Referring Physician Referring Physician: Dr Howard Identification/Chief Complaint Chief Complaint SOB - ? COPD exac Problems: Source Source: Chart review, Patient History of Present Illness Reason for Visit: as dictated Past Medical History Cardiovascular: HTN Pulmonary: Asthma, Pneumonia, Other CENTRAL NERVOUS SYSTEM: Other GI: GERD, Hemorrhoids, Irritable bowel disease Heme/Onc: Anemia NOS, Cancer Hepatobiliary: No pertinent hx Psych: Anxiety, Depression Musculoskeletal: Osteoarthritis, Other Rheumatologic: Fibromyalgia Infectious disease: Other Renal/: Chronic renal failure, Urinary Incontinence Endocrine: Hyperparathyroidism Past Surgical History Past Surgical History: Cholecystectomy, Tubal Ligation, Other Family History Family History: Hypertension Social History No ALCOHOL: none Drugs: None Lives: with Family Current Problem List Problem List Problems Medical Problems: (1) Accelerated hypertension Status: Acute (2) Bilateral pleural effusion Status: Acute (3) COPD with acute exacerbation Status: Acute (4) End stage renal disease Status: Acute Current Medications Current Medications Current Medications Sodium Chloride (Iv Sodium Chloride 0.9% 1000ml Bag) 1,000 ml @ 100 mls/hr Q10H IV Last administered on 11/27/16 19:49; Start 11/27/16 at 19:01; Stop at 05:00; Status DC Albuterol/ Ipratropium (Duoneb) 6 ml 1X ONCE NEB Last administered on 19:10; Start 11/27/16 at 19:30; Stop 11/27/16 at 19:31; Status DC Methylprednisolone Sodium Succinate (Solu-Medrol 125mg Vial) 125 mg 1X ONCE IV Last administered on 11/27/16 19:49; Start 11/27/16 at 19:30; Stop 11/27/16 at 19:31; Status DC Acetaminophen/ Hydrocodone Bitart (Lortab 7.5/325) 1 tab 1X ONCE PO Last administered on 11/27/16 20:29; Start 11/27/16 at 20:15; Stop 11/27/16 at 20:17; Status DC Lisinopril (Prinivil) 10 mg 1X ONCE PO Last administered on 11/27/16 21:09; Start 11/27/16 at 21:15; Stop 11/27/16 at 21:16; Status DC Amlodipine Besylate (Norvasc) 10 mg 1X ONCE PO Last administered on 11/27/16 21:08; Start 11/27/16 at 21:15; Stop 11/27/16 at 21:16; Status DC Clonidine HCl (Catapres) 0.3 mg 1X ONCE PO Last administered on 11/27/16 21:09 ; Start 11/27/16 at 21:15; Stop 11/27/16 at 21:16; Status DC Ondansetron HCl (Zofran) 4 mg PRN Q8HRS PRN IV NAUSEA/VOMITING Last administered on 11/28/16 09:00; Start 11/27/16 at 22:30; Stop 11/28/16 at 22:29 Fentanyl Citrate (Fentanyl 2ml Vial) 50 mcg PRN Q2HR PRN IV SEVERE PAIN Last administered on 11/28/16 09:09; Start 11/27/16 at 22:30; Stop 11/28/16 at 22:29 Acetaminophen (Tylenol) 650 mg PRN Q4HRS PRN PO FEVER; Start 11/27/16 at 22:30; Stop 11/28/16 at 22:29 Albuterol/ Ipratropium (Duoneb) 3 ml RTQID NEB Last administered on 11/28/16 08 :22; Start 11/28/16 at 08:00; Stop 11/29/16 at 07:59 Methylprednisolone Sodium Succinate (Solu-Medrol 40mg Vial) 60 mg Q6HRS IV Last administered on 11/28/16 05:02; Start 11/28/16 at 00:00 Diphenhydramine HCl (Benadryl) 25 mg 1X ONCE IVP Last administered on 23:30; Start 11/27/16 at 23:00; Stop 11/27/16 at 23:01; Status DC Diphenhydramine HCl (Benadryl) 25 mg PRN Q6HRS PRN IVP ITCHING Last administered on 11/28/16 09:00; Start 11/28/16 at 02:00 Albuterol Sulfate (Ventolin Neb Soln) 2.5 mg PRN Q4HRS PRN NEB SHORTNESS OF BREATH Last administered on 11/28/16 05:17; Start 11/28/16 at 05:15 Acetaminophen (Tylenol) 500 mg PRN Q6HRS PRN PO PAIN; Start 11/28/16 at 07:15 Lactobacillus Acidophilus (Bacid, Maren-Bid) 1 tab TIDWMEALS PO Last administered on 11/28/16 09:03; Start 11/28/16 at 08:00 Acyclovir (Zovirax) 200 mg BID PO Last administered on 11/28/16 09:03; Start at 09:00 Amlodipine Besylate (Norvasc) 10 mg HS PO ; Start 11/28/16 at 21:00 Clonidine HCl (Catapres) 0.3 mg TID PO Last administered on 11/28/16 09:01; Start 11/28/16 at 09:00 Darbepoetin Apolinar (Aranesp) 60 mcg Tu SQ ; Start 11/28/16 at 21:00 Diclofenac Epolamine (Flector) 1 patch BID TD ; Start 11/28/16 at 09:00; Status UNV Furosemide (Lasix) 80 mg TID@,17 PO Last administered on 11/28/16 09:02; Start 11/28/16 at 09:00 Acetaminophen/ Hydrocodone Bitart (Lortab 7.5/325) 1 tab PRN Q4HRS PRN PO SEVERE PAIN; Start 11/28/16 at 07:15 Isosorbide Mononitrate (Imdur) 30 mg DAILY PO Last administered on 11/28/16 09: 02; Start 11/28/16 at 09:00 Lidocaine/ Prilocaine (Emla) 1 oniel PRN QID PRN TP pain; Start 11/28/16 at 07:15 Lisinopril (Prinivil) 10 mg DAILY PO Last administered on 11/28/16 09:01; Start 11/28/16 at 09:00 Loperamide HCl (Imodium) 2 mg PRN Q15MIN PRN PO DIARRHEA; Start 11/28/16 at 07: 15 Lorazepam (Ativan) 1 mg PRN Q6HRS PRN PO VOMITING; Start 11/28/16 at 07:15 Methocarbamol (Robaxin) 1,500 mg PRN QID PRN PO SEVERE PAIN; Start 11/28/16 at 07:15 Paroxetine HCl (Paxil) 20 mg QHS PO ; Start 11/28/16 at 21:00 Sevelamer Carbonate (Renvela) 800 mg TIDWMEALS PO Last administered on 09:02; Start 11/28/16 at 08:00 Dicyclomine HCl (Bentyl) 20 mg PRN TID PRN PO Stomach pain Last administered on 11/28/16 09:02; Start 11/28/16 at 07:45 Diphenhydramine HCl (Benadryl) 50 mg QHS PO ; Start 11/28/16 at 21:00 Non-Formulary Medication 2 puff DAILY IH ; Start 11/28/16 at 09:00; Stop 11/28/16 at 09:00; Status DC Folic Acid/ Multivitamins/Vit B12 (Nephro-Sheree) 1 tab DAILY PO Last administered on 11/28/16 09:00; Start 11/28/16 at 09:00 Cetirizine HCl (Zyrtec) 10 mg QHS PO ; Start 11/28/16 at 21:00 Non-Formulary Medication 8 mg PRN BID PRN PO NAUSEA/VOMITING; Start 11/28/16 at 07:15 Budesonide (Pulmicort) 0.5 mg RTBID NEB Last administered on 11/28/16 08:22; Start 11/28/16 at 08:00 Active Scripts Active Levaquin (Levofloxacin) 500 Mg Tablet 500 Mg PO Q48H Lisinopril 10 Mg Tablet 10 Mg PO DAILY 30 Days Hydrocodone-Apap 7.5-325 (Hydrocodone Bit/Acetaminophen) 1 Each Tablet 1 Tab PO PRN Q4HRS PRN 14 Days Flector (Diclofenac Epolamine) 1 Each Patch.td12 1 Patch TD BID 30 Days Aranesp Syringe (Darbepoetin Apolinar In Polysorbat) 60 Mcg/0.3 Ml Disp.syrin 60 Mcg SQ WEEKLYHS 30 Days Furosemide 80 Mg Tablet 80 Mg PO TID 30 Days Loperamide (Loperamide Hcl) 2 Mg Capsule 2 Mg PO PRN Q15MIN PRN 30 Days Isosorbide Mononitrate Er (Isosorbide Mononitrate) 30 Mg Tab.er.24h 30 Mg PO DAILY 30 Days Maren-Bid Caplet (Acidoph/L.bulg/Bif.b/S.thermop) 1 Each Tablet 1 Tab PO TIDWMEALS 30 Days Reported Lorazepam 1 Mg Tablet 1 Mg PO PRN Q6HRS PRN Renvela (Sevelamer Carbonate) 800 Mg Tablet 2 Tab PO TID Lidocaine-Prilocaine Cream (Lidocaine/Prilocaine) 30 Gm Cream..g. 1 Oniel TP UD Dicyclomine Hcl 20 Mg Tablet 1 Tab PO TID PRN Clonidine Hcl 0.3 Mg Tablet 0.3 Mg PO TID Amlodipine Besylate 10 Mg Tablet 10 Mg PO HS Renal Caps Softgel (Folic Acid/Vitamin B Comp W-C) 1 Mg Capsule 1 Cap PO DAILY Advair 250-50 Diskus (Fluticasone/Salmeterol) 1 Each Disk.w.dev 2 Puff IH DAILY Proair Hfa Inhaler (Albuterol Sulfate) 8.5 Gm Hfa.aer.ad 2 Puff INH PRN Q6HRS PRN Acyclovir 200 Mg Capsule 200 Mg PO BID Paroxetine Hcl 20 Mg Tablet 20 Mg PO QHS Nighttime Sleep Aid (Diphenhydramine Hcl) 50 Mg Capsule 50 Mg PO QHS Ondansetron Hcl 8 Mg Tablet 8 Mg PO BID PRN Methocarbamol 750 Mg Tablet 1,500 Mg PO QID PRN Tylenol Extra Strength (Acetaminophen) 500 Mg Tablet 500 Mg PO Q6HRS PRN Claritin (Loratadine) 10 Mg Capsule 10 Mg PO HS Allergies Allergies: Coded Allergies: Sulfa (Sulfonamide Antibiotics) (Verified Allergy, Intermediate, Hives, 04/26/16) sucralose (Verified Allergy, Intermediate, hives & itching, 04/26/16) codeine (Verified Adverse Reaction, Intermediate, ITCHING, PREVIOUSLY TOLERATED DILAUDID, 04/26/16) ROS Review of System GEN: no Fevers no Chills EYES: no Visual Complaints ENT: no EN Drainage no Hearing deficiets CVS: min Orthopnea + Chest wall pain, ? Pleuritic RESP: + SOB + [place] GI: no Nausea no Vomiting : no Dysuria no Urgency HEME: no easy bruising no Palp Ly Nodes NEURO no Focal Weakness no Sz PSYCH: no Suicidal Ideation + Depression SKIN: no new Rashes - +ve thickening of Skin on her "sides" ENDO: no Polyuria or Polydipsia no Hot/Cold Intolerance MU SK: occ Arthraigia min Myalgia Physical Exam Physical Exam General Appearance: Awake Alert Oriented x 3 In no resp Distress Eyes: VIsion Unchanged Conjunctiva Normal EN: No EN Drainage Mucous Memb. moist Neck: no JVD min JVP Supple no Thyromegaly CVS: S1 S2 soft Murmur No Gallop No Rub + Edema Resp: Gigi basla Rales no Rhonchi no Acc. Muscle use GI: BAS +ve NO Bruit Non Tender Non Distended : no CVA tenderness; no Suprapubic Tenderness SKIN: no Rashes Breast Exam deferred - Skin thickening along her lateral aspect of chest is ntoed. Mu.Sk: Adequate ROM no Muscle Atrophy Heme: Unable to palpate Obvious LAD Splenomegaly NEURO: Good Strength and Tone Cranial Nerves II - XII grossly intact Psych: somewhat Depressed no Active hallucination Vital Signs Vital Signs Date Time Temp Pulse Resp B/P Pulse Ox O2 Delivery O2 Flow Rate FiO2 11/28/16 09:09 20 96 Nasal Cannula 4.0 11/28/16 09:02 105 183/99 11/28/16 07:59 98.7 98.7 Assessment & Plan ESRD: Dialysis as below F 180 NR 3.0 Hrs 3 K 2.5 Ca 140 Na 35 HC03 Qb 350 + Qd 500+ Heparin 0 Units Uf 3 Kgs or to dry weight as tolerated May give 25-50 gms of 25% Albumin if needed to maintain Hemodynamic stability Treatment plan reviewed and discussed with rn chemical dependency Anemia: reval after fluid status optimization; ? needs Epogen if hgb < 10 after Uf. Transfuse with next HD as needed. HTN: reval after fluid status optimiztiaon. Current BP meds reviewed. See orders for changes. ABI: Bone & Mineral: Follow Phos and alter bidner regimen Skin changes / Hardening - Skin Bx to r/o Calciphylaxis Discussed Plan of Care and prognosis etc. at length with family. Labs Labs Laboratory Tests Test 11/27/16 19:35 11/27/16 21:30 11/28/16 06:05 White Blood Count 7.7x10^3/uL (4.0-11.0) 3.5x10^3/uL (4.0-11.0) Red Blood Count 3.03x10^6/uL (3.50-5.40) 3.19x10^6/uL (3.50-5.40) Hemoglobin 9.4g/dL (12.0-15.5) 9.8g/dL (12.0-15.5) Hematocrit 31.4% (36.0-47.0) 32.9% (36.0-47.0) Mean Corpuscular Volume 104fL (79-100) 103fL (79-100) Mean Corpuscular Hemoglobin 31pg (25-35) 31pg (25-35) Mean Corpuscular Hemoglobin Concent 30g/dL (31-37) 30g/dL (31-37) Red Cell Distribution Width 20.3% (11.5-14.5) 20.4% (11.5-14.5) Platelet Count 140x10^3/uL (140-400) 140x10^3/uL (140-400) Neutrophils (%) (Auto) 73% (31-73) 89% (31-73) Lymphocytes (%) (Auto) 19% (24-48) 11% (24-48) Monocytes (%) (Auto) 7% (0-9) 1% (0-9) Eosinophils (%) (Auto) 1% (0-3) 0% (0-3) Basophils (%) (Auto) 0% (0-3) 0% (0-3) Neutrophils # (Auto) 5.6x10^3uL (1.8-7.7) 3.1x10^3uL (1.8-7.7) Lymphocytes # (Auto) 1.5x10^3/uL (1.0-4.8) 0.4x10^3/uL (1.0-4.8) Monocytes # (Auto) 0.5x10^3/uL (0.0-1.1) 0.0x10^3/uL (0.0-1.1) Eosinophils # (Auto) 0.1x10^3/uL (0.0-0.7) 0.0x10^3/uL (0.0-0.7) Basophils # (Auto) 0.0x10^3/uL (0.0-0.2) 0.0x10^3/uL (0.0-0.2) Platelet Estimate Adequate (ADEQUATE) Polychromasia Slight Hypochromasia Slight Poikilocytosis Slight Anisocytosis Mod Sodium Level 140mmol/L (136-145) 136mmol/L (136-145) Potassium Level 3.7mmol/L (3.5-5.1) 4.1mmol/L (3.5-5.1) Chloride Level 102mmol/L (98-107) 99mmol/L (98-107) Carbon Dioxide Level 24mmol/L (21-32) 22mmol/L (21-32) Anion Gap 14 (6-14) 15 (6-14) Blood Urea Nitrogen 32mg/dL (7-20) 38mg/dL (7-20) Creatinine 4.3mg/dL (0.6-1.0) 4.8mg/dL (0.6-1.0) Estimated GFR (Cockcroft-Gault) 11.4 10.0 BUN/Creatinine Ratio 7 (6-20) Glucose Level 104mg/dL (70-99) 133mg/dL (70-99) Calcium Level 8.2mg/dL (8.5-10.1) 8.5mg/dL (8.5-10.1) Total Bilirubin 0.9mg/dL (0.2-1.0) Aspartate Amino Transf (AST/SGOT) 28U/L (15-37) Alanine Aminotransferase (ALT/SGPT) 18U/L (14-59) Alkaline Phosphatase 158U/L (46-116) Creatine Kinase 92U/L (26-192) Creatine Kinase MB (Mass) 3.9ng/mL (0.0-3.6) Creatine Kinase MB Relative Index 4.2% (0-4) Troponin I Quantitative 0.084ng/mL (0.000-0.055) NX-Ckh-G-Type Natriuretic Peptide > 92414xc/mL (0-124) Total Protein 6.7g/dL (6.4-8.2) Albumin 3.1g/dL (3.4-5.0) Albumin/Globulin Ratio 0.9 (1.0-1.7) Influenza Type A Antigen Negative (NEGATIVE) Influenza Type B Antigen Negative (NEGATIVE) Laboratory Tests Test 11/27/16 19:35 11/27/16 21:30 11/28/16 06:05 White Blood Count 7.7x10^3/uL (4.0-11.0) 3.5x10^3/uL (4.0-11.0) Red Blood Count 3.03x10^6/uL (3.50-5.40) 3.19x10^6/uL (3.50-5.40) Hemoglobin 9.4g/dL (12.0-15.5) 9.8g/dL (12.0-15.5) Hematocrit 31.4% (36.0-47.0) 32.9% (36.0-47.0) Mean Corpuscular Volume 104fL (79-100) 103fL (79-100) Mean Corpuscular Hemoglobin 31pg (25-35) 31pg (25-35) Mean Corpuscular Hemoglobin Concent 30g/dL (31-37) 30g/dL (31-37) Red Cell Distribution Width 20.3% (11.5-14.5) 20.4% (11.5-14.5) Platelet Count 140x10^3/uL (140-400) 140x10^3/uL (140-400) Neutrophils (%) (Auto) 73% (31-73) 89% (31-73) Lymphocytes (%) (Auto) 19% (24-48) 11% (24-48) Monocytes (%) (Auto) 7% (0-9) 1% (0-9) Eosinophils (%) (Auto) 1% (0-3) 0% (0-3) Basophils (%) (Auto) 0% (0-3) 0% (0-3) Neutrophils # (Auto) 5.6x10^3uL (1.8-7.7) 3.1x10^3uL (1.8-7.7) Lymphocytes # (Auto) 1.5x10^3/uL (1.0-4.8) 0.4x10^3/uL (1.0-4.8) Monocytes # (Auto) 0.5x10^3/uL (0.0-1.1) 0.0x10^3/uL (0.0-1.1) Eosinophils # (Auto) 0.1x10^3/uL (0.0-0.7) 0.0x10^3/uL (0.0-0.7) Basophils # (Auto) 0.0x10^3/uL (0.0-0.2) 0.0x10^3/uL (0.0-0.2) Platelet Estimate Adequate (ADEQUATE) Polychromasia Slight Hypochromasia Slight Poikilocytosis Slight Anisocytosis Mod Sodium Level 140mmol/L (136-145) 136mmol/L (136-145) Potassium Level 3.7mmol/L (3.5-5.1) 4.1mmol/L (3.5-5.1) Chloride Level 102mmol/L (98-107) 99mmol/L (98-107) Carbon Dioxide Level 24mmol/L (21-32) 22mmol/L (21-32) Anion Gap 14 (6-14) 15 (6-14) Blood Urea Nitrogen 32mg/dL (7-20) 38mg/dL (7-20) Creatinine 4.3mg/dL (0.6-1.0) 4.8mg/dL (0.6-1.0) Estimated GFR (Cockcroft-Gault) 11.4 10.0 BUN/Creatinine Ratio 7 (6-20) Glucose Level 104mg/dL (70-99) 133mg/dL (70-99) Calcium Level 8.2mg/dL (8.5-10.1) 8.5mg/dL (8.5-10.1) Total Bilirubin 0.9mg/dL (0.2-1.0) Aspartate Amino Transf (AST/SGOT) 28U/L (15-37) Alanine Aminotransferase (ALT/SGPT) 18U/L (14-59) Alkaline Phosphatase 158U/L (46-116) Creatine Kinase 92U/L (26-192) Creatine Kinase MB (Mass) 3.9ng/mL (0.0-3.6) Creatine Kinase MB Relative Index 4.2% (0-4) Troponin I Quantitative 0.084ng/mL (0.000-0.055) [id number]-Type Natriuretic Peptide > 84137hf/mL (0-124) Total Protein 6.7g/dL (6.4-8.2) Albumin 3.1g/dL (3.4-5.0) Albumin/Globulin Ratio 0.9 (1.0-1.7) Influenza Type A Antigen Negative (NEGATIVE) Influenza Type B Antigen Negative (NEGATIVE) Images Images IMPRESSION: Stable cardiomegaly. Suspect mild pulmonary vascular congestion. Bilateral pleural effusions. Volume loss in the left lower lobe compatible with atelectasis or pneumonia MITRA TAVAREZ MD Nov 28, 2016 10:42
[2016-11-28] MEDS ORDERED: MAGNESIUM SULFATE 2GM 50 ML IV PRN (10:45)
[2016-11-28 12:40] LABS: PLT ESTIMATE ADEQUATE (ADEQUATE)
[2016-11-28 12:42] LABS: ANISOCYTOSIS MOD
--- NOTE | 2016-11-28 13:26 | EKG ---
[facility] [address] [place] [address] Test Date: 2016-11-28 Test Time: 13:18:20 Pat Name: SUNNY SOLIS Department: Room: 8 Gender: F Counter Pocket Sewer: TARYN : 1975 Requested By: CHINO MOLINA Order Number: [id number] Reading MD: Tanvi Lofton Measurements Intervals [place] Rate: 99 P: 22 LA: 190 QRS: 1 QRSD: 90 T: 3 QT: 400 QTc: 519 Interpretive Statements SINUS RHYTHM PROLONGED QT NO SPECIFIC ECG ABNORMALITIES RI6.01 Unconfirmed report Compared to ECG 07/02/2016 12:41:20 Prolonged QT interval now present Sinus tachycardia no longer present Electronically Signed On 12-03-2016 14:48:11 DRAPERY COUNSELOR by Tanvi Lofton
--- NOTE | 2016-11-28 13:56 | PDOC ---
Provider Note Provider Note DICTATED CHF LAURA GOMEZ MD Nov 28, 2016 13:56
[2016-11-28] MEDS ORDERED: HYDRALAZINE 50 MG TABLET PO SCH (14:00)
[2016-11-28 14:47] VITALS: BP 157/89
--- NOTE | 2016-11-28 15:40 | CONS ---
DATE OF CONSULTATION: 11/28/2016 ATTENDING PHYSICIAN: Dr. Camila Howard. REASON FOR CONSULTATION: Dyspnea. HISTORY OF PRESENT ILLNESS: The patient is a 41-year-old female who has history of asthma, history of multiple myeloma, on chemotherapy. 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 The patient has end-stage renal disease. She was brought into the hospital with complaint of increasing shortness of breath and increasing abdominal girth. She has a mild cough. No fever, no chills, no chest pains. Her chest x-ray was consistent with CHF with increasing effusion. Echo in the past had shown moderate mitral regurgitation. She has not missed her dialysis session, but her systolic blood pressure on admission was high at 183 and diastolic was 99. PAST MEDICAL HISTORY: Significant for history of anxiety, asthma, history of multiple myeloma, status post chemo, depression, fibromyalgia, hypertension, pneumonia and end-stage renal disease. PAST SURGICAL HISTORY: Cholecystectomy and gastric bypass, tubal ligation, marrow transplant. ALLERGIES: SULFA, CODEINE, CIPRO. MEDICATIONS: Reviewed as listed in the MRAD. REVIEW OF SYSTEMS: Twelve-point systems obtained, pertinent positives discussed in history of present illness, otherwise noncontributory. All systems that were negative were reviewed as well. SOCIAL HISTORY: Nonsmoker. FAMILY HISTORY: Noncontributory to lungs. PHYSICAL EXAMINATION: VITAL SIGNS: Blood pressure 183/99, pulse ox 96% on 4 liters, afebrile. HEENT: Sclerae nonicteric. NECK: Supple. LUNGS: A few crackles posteriorly. CARDIOVASCULAR: Regular rate and rhythm. ABDOMEN: Soft, obese. EXTREMITIES: With trace pitting edema. LABORATORY DATA: Reviewed. Influenza screen is negative. BUN is 32, creatinine 4.3. White cell count is 3.5. IMPRESSION: 1. Dyspnea secondary to acute on chronic congestive heart failure, most likely related to mitral regurgitation, which is moderate on previous echo. High blood pressure also contributed to the patient's diastolic heart failure. 2. Acute on chronic diastolic heart failure. 3. No significant history of tobacco use. 4. Chronic respiratory failure, on home oxygen. 5. History of multiple myeloma, currently on chemo. 6. End-stage renal disease, on hemodialysis. RECOMMENDATIONS: 1. Continue present oxygen. 2. Hemodialysis with increased ultrafiltration. 3. Continue with bronchodilators. 4. Wean oxygen, keeping sats 92 and above. 5. We will follow chest x-ray in few days after dialysis. 6. Steroid taper. 7. Follow Oncology recommendations. Discussed with RN. LAURA GOMEZ MD DR: JAIRO/dejuan JOB#: [id number] / [id number]
[2016-11-28 19:40] VITALS: BP 171/90
[2016-11-28] MEDS: DARBEPOETIN ALFA 60 MCG/0.3 ML DISP.SYRIN. SQ SCH (20:53)
[2016-11-28] MEDS: DIPHENHYDRAMINE HCL 25 MG CAPSULE PO SCH (20:54)
[2016-11-28] MEDS: PAROXETINE 20 MG TABLET. PO SCH (20:55)
[2016-11-28] MEDS: CETIRIZINE HCL 10 MG TABLET PO SCH (20:55)
[2016-11-28] MEDS: AMLODIPINE BESYLATE 10 MG TABLET PO SCH (20:55)
[2016-11-28] MEDS: HYDRALAZINE 25 MG TABLET PO SCH (20:55)
[2016-11-28] MEDS: METHOCARBAMOL 750 MG TABLET PO PRN (23:52)
[2016-11-28] MEDS: HYDROCODONE/APAP 7.5/325MG TABLET. PO PRN (23:52)
--- NOTE | 2016-11-28 23:54 | HP ---
ADMIT DATE: 11/27/2016 ADMISSION DIAGNOSIS: Shortness of breath. HISTORY OF PRESENT ILLNESS: A 41-year-old white female with end-stage renal disease, who dialyzes on Sunday, Sunday, and Sunday and had dialysis on Sunday, but has been having some access issues. She was able to complete her dialysis without complications, but has had cold symptoms over the last several days, sinus symptoms that have caused her to have increased shortness of breath and because of the shortness of breath, she presented to the Emergency Room. She is also being treated for multiple myeloma and is in the process of getting a cardiac and pulmonary clearance prior to having a parathyroidectomy. She has been admitted for Pulmonary, Renal, and Cardiology consults to manage her acute on chronic conditions. PAST MEDICAL HISTORY: Anxiety, asthma, cancer, depression, hypertension, renal disease, renal failure, fibromyalgia, multiple myeloma for which she is receiving chemo. PAST SURGICAL HISTORY: Include cholecystectomy, gastric bypass, tubal ligation, left arm fistula, and bone marrow transplant. SOCIAL HISTORY: Negative for alcohol and drug use. FAMILY HISTORY: Noncontributory. ALLERGIES: Include SULFA, which causes hives, SUCRALOSE, which causes hives and itching, AND CODEINE, which causes itching. HOME MEDICATIONS: Include Tylenol Extra Strength 500 mg q. 6 hours p.r.n., Maren-Bid caplet 1 t.i.d. with meals, acyclovir 200 mg b.i.d., albuterol inhaler q. 6 hours p.r.n., amlodipine 10 mg at bedtime, clonidine 0.3 mg t.i.d., Aranesp 60 mcg subq weekly, Flector patch b.i.d., dicyclomine 20 mg t.i.d. p.r.n. diarrhea, diphenhydramine 50 mg at bedtime, Advair 250/50 one puff b.i.d., folic acid, vitamin B, which is a renal capsule 1 daily, furosemide 80 mg t.i.d., hydrocodone APAP 7.5/325 q. 4 hours p.r.n. pain, isosorbide mononitrate 30 mg daily. Levaquin has been discontinued. Emla cream topically p.r.n., lisinopril 10 mg daily, loperamide 2 mg p.r.n. diarrhea, loratadine 10 mg daily, lorazepam 1 mg q. 6 hours p.r.n. vomiting, methocarbamol 1500 mg q.i.d. p.r.n., Zofran 8 mg b.i.d. p.r.n., paroxetine 20 mg at bedtime, Renvela 2 tabs t.i.d. REVIEW OF SYSTEMS: Significant for sinus congestion and drainage. No chest pain. Some shortness of breath with some wheezing. GI symptoms have been stable without acute nausea, vomiting, or recent diarrhea. Dialysis shunt fistula has had some difficulty and she was scheduled to be seen in [facility]. Skin, no acute lesions. Neurologic, no acute changes. PHYSICAL EXAMINATION: VITAL SIGNS: She was initially quite hypertensive at 190/101 and required 4 liters nasal cannula oxygen. Blood pressure this morning with meds 163/89 with continued 4 liter nasal cannula oxygen. Heart is tachycardic with a rate of 105. She has been afebrile. GENERAL: She looks to be in moderate discomfort and distress. Sinuses are full. Nasal cannula oxygen on. Glasses are on. are present. HEENT: Mucous membranes are moist. HEART: Tachy, regular. LUNGS: Diminished sounds in the bases. No anterior wheezes or rhonchi though. ABDOMEN: Soft, nondistended, nontender. EXTREMITIES: No clubbing, cyanosis, or peripheral edema of her lower extremities is present. LABORATORY DATA: Show white count 7.7, hemoglobin 9.4, platelets of 140. Chemistries show a BUN of 32 with a creatinine of 4.3, EGFR of 11.4, glucose 104, calcium is low at 8.2, albumin is correspondingly low at 3.1. ProBNP is elevated at greater than 35,000. Her troponin 0.084. Her CK is normal at 92, but her MB is elevated at 3.9 and her index is elevated at 4.2. Flu testing is negative. IMAGING STUDIES: Chest x-ray shows persistent bilateral pleural effusions, volume loss in the left lower lobe suggestive of atelectasis or pneumonia, mild pulmonary vascular congestion and stable cardiomegaly are noted. ASSESSMENT: 1. Acute chronic obstructive pulmonary disease/congestive heart failure exacerbation, possible pneumonia. 2. End-stage renal disease, on dialysis. 3. Hyperparathyroidism. 4. Multiple myeloma. PLAN: She is admitted for cardiac, renal, and pulmonary consultations and stabilization of her acute on chronic issues. W Armand ELLIOTT MD DR: SHIRA/dejuan JOB#: [id number] / [id number]
[2016-11-28 23:55] VITALS: BP 148/80
[2016-11-29] VITALS (12 sets, daily range): BP systolic 120–178; BP diastolic 75–99
[2016-11-29] MEDS: methylPREDNISolone SOD SUCC PF 40 MG/ML VIAL. IV SCH ×3 (05:54→18:08)
[2016-11-29] MEDS: METHOCARBAMOL 750 MG TABLET PO PRN (05:54)
[2016-11-29] MEDS: HYDROCODONE/APAP 7.5/325MG TABLET. PO PRN (05:55)
[2016-11-29] MEDS: IPRATRPIUM/ALBUTEROL 0.5/2.5MG 3 ML NEBU. NEB SCH (06:06)
[2016-11-29] MEDS: BUDESONIDE 0.5 MG/2 ML NEBU NEB SCH ×2 (06:06→21:23)
[2016-11-29 06:35] LABS: BASO % 0 % (0-3); EOS % 0 % (0-3); HEMATOCRIT 30.5 % (36.0-47.0); HEMOGLOBIN 9.1 g/dL (12.0-15.5); LYMPH # 0.3 x10^3/uL (1.0-4.8); LYMPH % 7 % (24-48); MEAN CORPUSCULAR HEMOGLOBIN 31 pg (25-35); MEAN CORPUSCULAR HGB CONC 30 g/dL (31-37); MEAN CORPUSCULAR VOLUME 104 fL (79-100); MONO % 2 % (0-9); NEUT % 91 % (31-73); PLATELET COUNT 141 x10^3/uL (140-400); RED BLOOD COUNT 2.94 x10^6/uL (3.50-5.40); RED CELL DISTRIBUTION WIDTH 20.4 % (11.5-14.5); WHITE BLOOD COUNT 4.1 x10^3/uL (4.0-11.0)
[2016-11-29 06:56] LABS: MAGNESIUM 2.3 mg/dL (1.8-2.4); PHOSPHORUS 8.2 mg/dL (2.6-4.7)
[2016-11-29 06:57] LABS: ALBUMIN/GLOBULIN RATIO 0.8 (1.0-1.7); CALCIUM 8.3 mg/dL (8.5-10.1); GFR 7.7; POTASSIUM 4.5 mmol/L (3.5-5.1); TOTAL PROTEIN 6.6 g/dL (6.4-8.2)
--- NOTE | 2016-11-29 07:14 | EKG ---
[facility] [address] [place] [address] Test Date: 2016-11-27 Test Time: 18:43:17 Pat Name: SUNNY SOLIS Department: Room: [facility] Gender: F Raise Drill Operator: FAIZA ER : 1975 Requested By: CALVIN GARCIA Order Number: [id number] Reading MD: Tanvi Lofton Measurements Intervals [place] Rate: 98 P: 17 IN: 176 QRS: 0 QRSD: 90 T: 8 QT: 338 QTc: 433 Interpretive Statements SINUS RHYTHM LEFT ATRIAL ABNORMALITY LEFTWARD AXIS ABNORMAL ECG Electronically Signed On 12-03-2016 14:29:41 POINT OF CARE SPECIALIST by Tanvi Lofton
[2016-11-29] MEDS: SEVELAMER CARBONATE 800 MG TABLET. PO SCH ×3 (08:00→18:04)
[2016-11-29] MEDS: LACTOBACILLUS ACIDOPH & BULGAR 1 TABLET. PO SCH ×3 (08:00→18:03)
[2016-11-29] MEDS ORDERED: IV NORMAL SALINE 1000ML BAG 1,000 ML IV PRN (08:51)
[2016-11-29] MEDS ORDERED: DIALYSIS PATIENT. MC PRN ×2 (09:00)
[2016-11-29] MEDS: ISOSORBIDE MONONITRATE ER 30 MG TAB.ER.24H PO SCH (09:00)
[2016-11-29] MEDS ORDERED: DIPHENHYDRAMINE 50 MG/ML VIAL IV PRN ×2 (09:00)
[2016-11-29] MEDS: LISINOPRIL 10 MG TABLET PO SCH (09:00)
[2016-11-29] MEDS: FOLIC/VIT B COMP W-C (RENAL) TABLET. PO SCH (09:00)
[2016-11-29] MEDS: CLONIDINE HCL 0.3 MG TABLET PO SCH ×2 (09:00→14:00)
[2016-11-29] MEDS: FUROSEMIDE 80 MG TABLET PO SCH ×3 (09:00→18:04)
[2016-11-29] MEDS: HYDRALAZINE 25 MG TABLET PO SCH ×3 (09:00→21:10)
[2016-11-29] MEDS: ACYCLOVIR 200 MG CAPSULE PO SCH ×2 (09:00→21:09)
[2016-11-29] MEDS ORDERED: IV RINGERS,LACTATED 1000ML 1,000 ML IV SCH (09:16)
--- NOTE | 2016-11-29 09:21 | PDOC ---
PULMONARY PROGRESS NOTES Subjective no soa Vitals Vital Signs Date Time Temp Pulse Resp B/P Pulse Ox O2 Delivery O2 Flow Rate FiO2 11/29/16 08:00 Nasal Cannula 4.0 11/29/16 06:07 99 11/29/16 03:47 96.8 109 18 143/87 96.8 General: Alert, No acute distress Lungs: Other (decrease bs bases) Cardiovascular: S1, S2 Abdomen: Soft Neuro Exam: Alert Extremities: No Edema Skin: Warm Labs Laboratory Tests Test 11/27/16 19:35 11/27/16 21:30 11/28/16 06:05 11/29/16 05:45 White Blood Count 7.7x10^3/uL (4.0-11.0) 3.5x10^3/uL (4.0-11.0) 4.1x10^3/uL (4.0-11.0) Red Blood Count 3.03x10^6/uL (3.50-5.40) 3.19x10^6/uL (3.50-5.40) 2.94x10^6/uL (3.50-5.40) Hemoglobin 9.4g/dL (12.0-15.5) 9.8g/dL (12.0-15.5) 9.1g/dL (12.0-15.5) Hematocrit 31.4% (36.0-47.0) 32.9% (36.0-47.0) 30.5% (36.0-47.0) Mean Corpuscular Volume 104fL (79-100) 103fL (79-100) 104fL (79-100) Mean Corpuscular Hemoglobin 31pg (25-35) 31pg (25-35) 31pg (25-35) Mean Corpuscular Hemoglobin Concent 30g/dL (31-37) 30g/dL (31-37) 30g/dL (31-37) Red Cell Distribution Width 20.3% (11.5-14.5) 20.4% (11.5-14.5) 20.4% (11.5-14.5) Platelet Count 140x10^3/uL (140-400) 140x10^3/uL (140-400) 141x10^3/uL (140-400) Neutrophils (%) (Auto) 73% (31-73) 89% (31-73) 91% (31-73) Lymphocytes (%) (Auto) 19% (24-48) 11% (24-48) 7% (24-48) Monocytes (%) (Auto) 7% (0-9) 1% (0-9) 2% (0-9) Eosinophils (%) (Auto) 1% (0-3) 0% (0-3) 0% (0-3) Basophils (%) (Auto) 0% (0-3) 0% (0-3) 0% (0-3) Neutrophils # (Auto) 5.6x10^3uL (1.8-7.7) 3.1x10^3uL (1.8-7.7) 3.7x10^3uL (1.8-7.7) Lymphocytes # (Auto) 1.5x10^3/uL (1.0-4.8) 0.4x10^3/uL (1.0-4.8) 0.3x10^3/uL (1.0-4.8) Monocytes # (Auto) 0.5x10^3/uL (0.0-1.1) 0.0x10^3/uL (0.0-1.1) 0.1x10^3/uL (0.0-1.1) Eosinophils # (Auto) 0.1x10^3/uL (0.0-0.7) 0.0x10^3/uL (0.0-0.7) 0.0x10^3/uL (0.0-0.7) Basophils # (Auto) 0.0x10^3/uL (0.0-0.2) 0.0x10^3/uL (0.0-0.2) 0.0x10^3/uL (0.0-0.2) Platelet Estimate Adequate (ADEQUATE) Adequate (ADEQUATE) Polychromasia Slight Hypochromasia Slight Poikilocytosis Slight Anisocytosis Mod Mod Sodium Level 140mmol/L (136-145) 136mmol/L (136-145) 134mmol/L (136-145) Potassium Level 3.7mmol/L (3.5-5.1) 4.1mmol/L (3.5-5.1) 4.5mmol/L (3.5-5.1) Chloride Level 102mmol/L (98-107) 99mmol/L (98-107) 98mmol/L (98-107) Carbon Dioxide Level 24mmol/L (21-32) 22mmol/L (21-32) 18mmol/L (21-32) Anion Gap 14 (6-14) 15 (6-14) 18 (6-14) Blood Urea Nitrogen 32mg/dL (7-20) 38mg/dL (7-20) 55mg/dL (7-20) Creatinine 4.3mg/dL (0.6-1.0) 4.8mg/dL (0.6-1.0) 6.0mg/dL (0.6-1.0) Estimated GFR (Cockcroft-Gault) 11.4 10.0 7.7 BUN/Creatinine Ratio 7 (6-20) 9 (6-20) Glucose Level 104mg/dL (70-99) 133mg/dL (70-99) 116mg/dL (70-99) Calcium Level 8.2mg/dL (8.5-10.1) 8.5mg/dL (8.5-10.1) 8.3mg/dL (8.5-10.1) Total Bilirubin 0.9mg/dL (0.2-1.0) 1.0mg/dL (0.2-1.0) Aspartate Amino Transf (AST/SGOT) 28U/L (15-37) 18U/L (15-37) Alanine Aminotransferase (ALT/SGPT) 18U/L (14-59) 12U/L (14-59) Alkaline Phosphatase 158U/L (46-116) 126U/L (46-116) Creatine Kinase 92U/L (26-192) Creatine Kinase MB (Mass) 3.9ng/mL (0.0-3.6) Creatine Kinase MB Relative Index 4.2% (0-4) Troponin I Quantitative 0.084ng/mL (0.000-0.055) 0.065ng/mL (0.000-0.055) QJ-Cib-X-Type Natriuretic Peptide > 38926iu/mL (0-124) Total Protein 6.7g/dL (6.4-8.2) 6.6g/dL (6.4-8.2) Albumin 3.1g/dL (3.4-5.0) 3.0g/dL (3.4-5.0) Albumin/Globulin Ratio 0.9 (1.0-1.7) 0.8 (1.0-1.7) Influenza Type A Antigen Negative (NEGATIVE) Influenza Type B Antigen Negative (NEGATIVE) Segmented Neutrophils % 89% (35-66) Lymphocytes % 11% (24-48) Large Platelets Few Phosphorus Level 8.2mg/dL (2.6-4.7) Magnesium Level 2.3mg/dL (1.8-2.4) Laboratory Tests Test 11/29/16 05:45 White Blood Count 4.1x10^3/uL (4.0-11.0) Red Blood Count 2.94x10^6/uL (3.50-5.40) Hemoglobin 9.1g/dL (12.0-15.5) Hematocrit 30.5% (36.0-47.0) Mean Corpuscular Volume 104fL (79-100) Mean Corpuscular Hemoglobin 31pg (25-35) Mean Corpuscular Hemoglobin Concent 30g/dL (31-37) Red Cell Distribution Width 20.4% (11.5-14.5) Platelet Count 141x10^3/uL (140-400) Neutrophils (%) (Auto) 91% (31-73) Lymphocytes (%) (Auto) 7% (24-48) Monocytes (%) (Auto) 2% (0-9) Eosinophils (%) (Auto) 0% (0-3) Basophils (%) (Auto) 0% (0-3) Neutrophils # (Auto) 3.7x10^3uL (1.8-7.7) Lymphocytes # (Auto) 0.3x10^3/uL (1.0-4.8) Monocytes # (Auto) 0.1x10^3/uL (0.0-1.1) Eosinophils # (Auto) 0.0x10^3/uL (0.0-0.7) Basophils # (Auto) 0.0x10^3/uL (0.0-0.2) Sodium Level 134mmol/L (136-145) Potassium Level 4.5mmol/L (3.5-5.1) Chloride Level 98mmol/L (98-107) Carbon Dioxide Level 18mmol/L (21-32) Anion Gap 18 (6-14) Blood Urea Nitrogen 55mg/dL (7-20) Creatinine 6.0mg/dL (0.6-1.0) Estimated GFR (Cockcroft-Gault) 7.7 BUN/Creatinine Ratio 9 (6-20) Glucose Level 116mg/dL (70-99) Calcium Level 8.3mg/dL (8.5-10.1) Phosphorus Level 8.2mg/dL (2.6-4.7) Magnesium Level 2.3mg/dL (1.8-2.4) Total Bilirubin 1.0mg/dL (0.2-1.0) Aspartate Amino Transf (AST/SGOT) 18U/L (15-37) Alanine Aminotransferase (ALT/SGPT) 12U/L (14-59) Alkaline Phosphatase 126U/L (46-116) Total Protein 6.6g/dL (6.4-8.2) Albumin 3.0g/dL (3.4-5.0) Albumin/Globulin Ratio 0.8 (1.0-1.7) Medications Active Scripts Medications Dose Route/Sig Days Date Category Levaquin (Levofloxacin) 500 Mg Tablet 500 Mg PO Q48H 09/30/16 Rx Lisinopril 10 Mg Tablet 10 Mg PO DAILY 30 07/06/16 Rx Hydrocodone-Apap 7.5-325 (Hydrocodone Bit/Acetaminophen) 1 Each Tablet 1 Tab PO PRN Q4HRS PRN 14 07/06/16 Rx Flector (Diclofenac Epolamine) 1 Each Patch.td12 1 Patch TD BID 30 07/06/16 Rx Aranesp Syringe (Darbepoetin Apolinar In Polysorbat) 60 Mcg/0.3 Ml Disp.syrin 60 Mcg SQ WEEKLYHS 30 07/06/16 Rx Furosemide 80 Mg Tablet 80 Mg PO TID 30 07/06/16 Rx Lorazepam 1 Mg Tablet 1 Mg PO PRN Q6HRS PRN 07/02/16 Reported Renvela (Sevelamer Carbonate) 800 Mg Tablet 2 Tab PO TID 07/02/16 Reported Loperamide (Loperamide Hcl) 2 Mg Capsule 2 Mg PO PRN Q15MIN PRN 30 06/09/16 Rx Isosorbide Mononitrate Er (Isosorbide Mononitrate) 30 Mg Tab.er.24h 30 Mg PO DAILY 30 06/09/16 Rx Maren-Bid Caplet (Acidoph/L.bulg/Bif.b/S.thermop) 1 Each Tablet 1 Tab PO TIDWMEALS 30 06/09/16 Rx Lidocaine-Prilocaine Cream (Lidocaine/Prilocaine) 30 Gm Cream..g. 1 Oniel TP UD 06/04/16 Reported Dicyclomine Hcl 20 Mg Tablet 1 Tab PO TID PRN 06/04/16 Reported Clonidine Hcl 0.3 Mg Tablet 0.3 Mg PO TID 06/04/16 Reported Amlodipine Besylate 10 Mg Tablet 10 Mg PO HS 06/04/16 Reported Renal Caps Softgel (Folic Acid/Vitamin B Comp W-C) 1 Mg Capsule 1 Cap PO DAILY 01/16/16 Reported Advair 250-50 Diskus (Fluticasone/Salmeterol) 1 Each Disk.w.dev 2 Puff IH DAILY 01/16/16 Reported Proair Hfa Inhaler (Albuterol Sulfate) 8.5 Gm Hfa.aer.ad 2 Puff INH PRN Q6HRS PRN 01/16/16 Reported Acyclovir 200 Mg Capsule 200 Mg PO BID 01/16/16 Reported Paroxetine Hcl 20 Mg Tablet 20 Mg PO QHS 05/09/15 Reported Nighttime Sleep Aid (Diphenhydramine Hcl) 50 Mg Capsule 50 Mg PO QHS 05/09/15 Reported Ondansetron Hcl 8 Mg Tablet 8 Mg PO BID PRN 05/09/14 Reported Methocarbamol 750 Mg Tablet 1,500 Mg PO QID PRN 05/09/14 Reported Tylenol Extra Strength (Acetaminophen) 500 Mg Tablet 500 Mg PO Q6HRS PRN 05/09/14 Reported Claritin (Loratadine) 10 Mg Capsule 10 Mg PO HS 05/09/14 Reported Impression . 1. Dyspnea secondary to acute on chronic congestive heart failure, most likely related to mitral regurgitation, which is moderate on previous echo and severe CMP (EF25%). High blood pressure also contributed to the patient's diastolic heart failure. 2. Abnormal ct chest with moderate left effusion and small right. 3. No significant history of tobacco use. 4. Chronic respiratory failure, on home oxygen. 5. History of multiple myeloma, currently on chemo. 6. End-stage renal disease, on hemodialysis. Plan . 1. Continue present oxygen. 2. Hemodialysis with increased ultrafiltration. 3. Continue with bronchodilators. 4. Wean oxygen, keeping sats 92 and above. 5. We will follow chest x-ray in few days after dialysis. 6. Steroid taper. 7. Follow Oncology recommendations. 8. d/w patient, need for thoracentesis, she agrees. Had thoracentesis on right in may LAURA GOMEZ MD Nov 29, 2016 09:21
--- NOTE | 2016-11-29 09:24 | CARD ---
APPROVED REPORT EXAM: Two-dimensional and M-mode echocardiogram with Doppler and color Doppler. Other Information Quality : Average Rhythm : Tachycardia INDICATION Congestive Heart Failure 2D DIMENSIONS Left Atrium(2D)4.9 (1.6-4.0cm)IVSd1.1 (0.7-1.1cm) Aortic Root(2D)2.7 (2.0-3.7cm)LVDd4.9 (3.9-5.9cm) LVOT Diameter2.0 (1.8-2.4cm)PWd1.2 (0.7-1.1cm) LVDs4.2 (2.5-4.0cm)FS (%) 13.5 % SV32.3 mlLVEF(%)28.8 (>50%) Aortic Valve AoV Peak Ismael.220.0cm/sAoV VTI37.0cm AO Peak GR.19.4mmHgLVOT Peak Ismael.135.7cm/s LVOT VTI 21.25cmAO Mean GR.11mmHg CHARLINE (VMAX)1.10lt6MRY (VTI)1.76cm2 Mitral Valve MV E Awmbcsoo127.9cm/sMV DECEL EDVA948so MV E Mean Gr.16mmHgMV LBU20si MVA (PHT)4.96cm2 TDI E/Lateral E'50.5E/Medial E'40.1 Pulmonary Valve PV Peak Jpruntfr709.1cm/sPV Peak Grad.5mmHg RVOT VTI13.2cm Tricuspid Valve TR P. Kwhwjkds637kz/sRAP [id number] TR Peak Gr.52fySeQKXZ10zwTw LEFT VENTRICLE The left ventricle is normal size. There is borderline concentric left ventricular hypertrophy. Left ventricle systolic function is severely impaired. The Ejection Fraction is 25-30%. There is global hy pokinesis of the left ventricle with inferior wall akinesis. Septal motion consistent with conduction abnormality. Tissue Doppler imaging reveals moderate left ventricular diastolic dysfunction. RIGHT VENTRICLE The right ventricle is normal size. The right ventricular systolic function is normal. ATRIA The left atrium size is normal. The right atrium size is normal. The interatrial septum is intact wit h no evidence for an atrial septal defect or patent foramen ovale as noted on 2-D or Doppler imaging. AORTIC VALVE The aortic valve is not well visualized. Doppler and Color Flow revealed no significant aortic regurg itation. There is no significant aortic valvular stenosis. MITRAL VALVE Mitral annular calcification is mild. There is no mitral valve stenosis. Doppler and Color Flow revea led mild to moderate mitral regurgitation. TRICUSPID VALVE The tricuspid valve is normal in structure and function. Doppler and Color Flow revealed mild tricusp id regurgitation. The PA pressure was estimated at 37 mmHg. There is no tricuspid valve stenosis. PULMONIC VALVE The pulmonic valve is not well visualized. Doppler and Color Flow revealed no pulmonic valvular regur gitation. There is no pulmonic valvular stenosis. GREAT VESSELS The aortic root is normal in size. The IVC is normal in size and collapses >50% with inspiration. PERICARDIAL EFFUSION There are large bilateral effusions. There is a trace pericardial effusion. Critical Notification Date: 11/28/2016 Time: 16:34 Other Discipline : Roberto Lafleur APRN Critical Value: Yes <Conclusion> Left ventricle systolic function is severely impaired. The Ejection Fraction is 25-30%. There is global hypokinesis of the left ventricle with inferior wall akinesis. Septal motion consiste nt with conduction abnormality. Doppler and Color Flow revealed mild to moderate mitral regurgitation. Doppler and Color Flow revealed mild tricuspid regurgitation. The PA pressure was estimated at 37 mmH g. There are large bilateral effusions.
[2016-11-29] MEDS ORDERED: LIDOCAINE 1% 1 ML SYRINGE. ID PRN (09:30)
[2016-11-29] MEDS ORDERED: PROCHLORPERAZINE 10 MG/2 ML VIAL. IV PRN (09:30)
[2016-11-29] MEDS ORDERED: FENTANYL PF 100 MCG/2 ML VIAL. IV PRN (09:30)
--- NOTE | 2016-11-29 09:41 | RAD ---
CT study of the chest without contrast Clinical indications: Dyspnea. Pleural effusion. Comparison: June 06, 2016. Findings: Moderate size left-sided pleural effusion is seen with associated compressive atelectasis of the entire left lower lobe. This is a new finding from the previous study. The left upper lobe including the lingula remain aerated. There is some mild atelectasis within the inferior segment of the lingula. Small residual right-sided pleural effusion is seen which has significantly improved from the prior study. There has been significant improvement of aeration of the right lower lobe from the prior study. Residual atelectasis or infiltrate is seen within the right lower lobe. The groundglass lung infiltrates seen previously have resolved. No pneumothorax is seen. The proximal bronchial tree remains patent. The heart size is enlarged. Mild calcified atheromatous disease of the coronary arteries is seen. No pericardial effusion is evident. No focal aneurysmal dilatation of the thoracic aorta is seen. No enlarging thoracic lymphadenopathy is evident. There is generalized subcutaneous and soft tissue edema of the chest including both breasts. This may be seen with anasarca. There is a mild compression deformity of T12 which is unchanged. No osteolytic process is evident. No adrenal mass is evident. IMPRESSION: Improvement of right-sided pleural effusion since June 06, 2016. There is associated improvement of aeration of the right lower lobe. A small residual right-sided pleural effusion and residual right lower lobe infiltrate or atelectasis are still present. New finding of a moderate size left-sided pleural effusion with compressive atelectasis of the entire left lower lobe. Previously seen groundglass lung infiltrates or pulmonary edema have resolved. Cardiomegaly without pericardial effusion. Calcified atheromatous disease of the coronary arteries. Generalized anasarca of the chest which has developed since the previous study.
--- NOTE | 2016-11-29 10:19 | PDOC ---
Dialysis Progress Note Dialysis Note Dialysis Note Seen on Hemodialysis, tolerating treatment Well Vitals on Hemodialysis: 162/90 98 16 97.2 General Appearance: Awake: Alert Oriented x 3 Neck: No JVD or JVP Chest: CTA Gigi Heart: S1 S2 Abdomen - Soft NTND Extremities - No Edema ESRD : Dialysis as below F 180 NR 3.0 Hrs 3 K 2.5 Ca 140 Na 40 HC03 Qb 350 + Qd 500+ Heparin 0 Units Uf 3 Kgs or to dry weight as tolerated [ ] Transfuse [ ] Units PRCBC's on HD May give 25-50 gms of 25% Albumin if needed to maintain Hemodynamic stability Treatment plan reviewed and discussed with field artillery operations specialist [ ] Vitals Vital Signs Vital Signs Date Time Temp Pulse Resp B/P Pulse Ox O2 Delivery O2 Flow Rate FiO2 11/29/16 08:00 Nasal Cannula 4.0 11/29/16 06:07 99 11/29/16 03:47 96.8 109 18 143/87 96.8 Labs Last Labs Laboratory Tests Test 11/27/16 19:35 11/27/16 21:30 11/28/16 06:05 11/29/16 05:45 White Blood Count 7.7x10^3/uL (4.0-11.0) 3.5x10^3/uL (4.0-11.0) 4.1x10^3/uL (4.0-11.0) Red Blood Count 3.03x10^6/uL (3.50-5.40) 3.19x10^6/uL (3.50-5.40) 2.94x10^6/uL (3.50-5.40) Hemoglobin 9.4g/dL (12.0-15.5) 9.8g/dL (12.0-15.5) 9.1g/dL (12.0-15.5) Hematocrit 31.4% (36.0-47.0) 32.9% (36.0-47.0) 30.5% (36.0-47.0) Mean Corpuscular Volume 104fL (79-100) 103fL (79-100) 104fL (79-100) Mean Corpuscular Hemoglobin 31pg (25-35) 31pg (25-35) 31pg (25-35) Mean Corpuscular Hemoglobin Concent 30g/dL (31-37) 30g/dL (31-37) 30g/dL (31-37) Red Cell Distribution Width 20.3% (11.5-14.5) 20.4% (11.5-14.5) 20.4% (11.5-14.5) Platelet Count 140x10^3/uL (140-400) 140x10^3/uL (140-400) 141x10^3/uL (140-400) Neutrophils (%) (Auto) 73% (31-73) 89% (31-73) 91% (31-73) Lymphocytes (%) (Auto) 19% (24-48) 11% (24-48) 7% (24-48) Monocytes (%) (Auto) 7% (0-9) 1% (0-9) 2% (0-9) Eosinophils (%) (Auto) 1% (0-3) 0% (0-3) 0% (0-3) Basophils (%) (Auto) 0% (0-3) 0% (0-3) 0% (0-3) Neutrophils # (Auto) 5.6x10^3uL (1.8-7.7) 3.1x10^3uL (1.8-7.7) 3.7x10^3uL (1.8-7.7) Lymphocytes # (Auto) 1.5x10^3/uL (1.0-4.8) 0.4x10^3/uL (1.0-4.8) 0.3x10^3/uL (1.0-4.8) Monocytes # (Auto) 0.5x10^3/uL (0.0-1.1) 0.0x10^3/uL (0.0-1.1) 0.1x10^3/uL (0.0-1.1) Eosinophils # (Auto) 0.1x10^3/uL (0.0-0.7) 0.0x10^3/uL (0.0-0.7) 0.0x10^3/uL (0.0-0.7) Basophils # (Auto) 0.0x10^3/uL (0.0-0.2) 0.0x10^3/uL (0.0-0.2) 0.0x10^3/uL (0.0-0.2) Platelet Estimate Adequate (ADEQUATE) Adequate (ADEQUATE) Polychromasia Slight Hypochromasia Slight Poikilocytosis Slight Anisocytosis Mod Mod Sodium Level 140mmol/L (136-145) 136mmol/L (136-145) 134mmol/L (136-145) Potassium Level 3.7mmol/L (3.5-5.1) 4.1mmol/L (3.5-5.1) 4.5mmol/L (3.5-5.1) Chloride Level 102mmol/L (98-107) 99mmol/L (98-107) 98mmol/L (98-107) Carbon Dioxide Level 24mmol/L (21-32) 22mmol/L (21-32) 18mmol/L (21-32) Anion Gap 14 (6-14) 15 (6-14) 18 (6-14) Blood Urea Nitrogen 32mg/dL (7-20) 38mg/dL (7-20) 55mg/dL (7-20) Creatinine 4.3mg/dL (0.6-1.0) 4.8mg/dL (0.6-1.0) 6.0mg/dL (0.6-1.0) Estimated GFR (Cockcroft-Gault) 11.4 10.0 7.7 BUN/Creatinine Ratio 7 (6-20) 9 (6-20) Glucose Level 104mg/dL (70-99) 133mg/dL (70-99) 116mg/dL (70-99) Calcium Level 8.2mg/dL (8.5-10.1) 8.5mg/dL (8.5-10.1) 8.3mg/dL (8.5-10.1) Total Bilirubin 0.9mg/dL (0.2-1.0) 1.0mg/dL (0.2-1.0) Aspartate Amino Transf (AST/SGOT) 28U/L (15-37) 18U/L (15-37) Alanine Aminotransferase (ALT/SGPT) 18U/L (14-59) 12U/L (14-59) Alkaline Phosphatase 158U/L (46-116) 126U/L (46-116) Creatine Kinase 92U/L (26-192) Creatine Kinase MB (Mass) 3.9ng/mL (0.0-3.6) Creatine Kinase MB Relative Index 4.2% (0-4) Troponin I Quantitative 0.084ng/mL (0.000-0.055) 0.065ng/mL (0.000-0.055) AR-Fma-X-Type Natriuretic Peptide > 30834ih/mL (0-124) Total Protein 6.7g/dL (6.4-8.2) 6.6g/dL (6.4-8.2) Albumin 3.1g/dL (3.4-5.0) 3.0g/dL (3.4-5.0) Albumin/Globulin Ratio 0.9 (1.0-1.7) 0.8 (1.0-1.7) Influenza Type A Antigen Negative (NEGATIVE) Influenza Type B Antigen Negative (NEGATIVE) Segmented Neutrophils % 89% (35-66) Lymphocytes % 11% (24-48) Large Platelets Few Phosphorus Level 8.2mg/dL (2.6-4.7) Magnesium Level 2.3mg/dL (1.8-2.4) Laboratory Tests Test 11/29/16 05:45 White Blood Count 4.1x10^3/uL (4.0-11.0) Red Blood Count 2.94x10^6/uL (3.50-5.40) Hemoglobin 9.1g/dL (12.0-15.5) Hematocrit 30.5% (36.0-47.0) Mean Corpuscular Volume 104fL (79-100) Mean Corpuscular Hemoglobin 31pg (25-35) Mean Corpuscular Hemoglobin Concent 30g/dL (31-37) Red Cell Distribution Width 20.4% (11.5-14.5) Platelet Count 141x10^3/uL (140-400) Neutrophils (%) (Auto) 91% (31-73) Lymphocytes (%) (Auto) 7% (24-48) Monocytes (%) (Auto) 2% (0-9) Eosinophils (%) (Auto) 0% (0-3) Basophils (%) (Auto) 0% (0-3) Neutrophils # (Auto) 3.7x10^3uL (1.8-7.7) Lymphocytes # (Auto) 0.3x10^3/uL (1.0-4.8) Monocytes # (Auto) 0.1x10^3/uL (0.0-1.1) Eosinophils # (Auto) 0.0x10^3/uL (0.0-0.7) Basophils # (Auto) 0.0x10^3/uL (0.0-0.2) Sodium Level 134mmol/L (136-145) Potassium Level 4.5mmol/L (3.5-5.1) Chloride Level 98mmol/L (98-107) Carbon Dioxide Level 18mmol/L (21-32) Anion Gap 18 (6-14) Blood Urea Nitrogen 55mg/dL (7-20) Creatinine 6.0mg/dL (0.6-1.0) Estimated GFR (Cockcroft-Gault) 7.7 BUN/Creatinine Ratio 9 (6-20) Glucose Level 116mg/dL (70-99) Calcium Level 8.3mg/dL (8.5-10.1) Phosphorus Level 8.2mg/dL (2.6-4.7) Magnesium Level 2.3mg/dL (1.8-2.4) Total Bilirubin 1.0mg/dL (0.2-1.0) Aspartate Amino Transf (AST/SGOT) 18U/L (15-37) Alanine Aminotransferase (ALT/SGPT) 12U/L (14-59) Alkaline Phosphatase 126U/L (46-116) Total Protein 6.6g/dL (6.4-8.2) Albumin 3.0g/dL (3.4-5.0) Albumin/Globulin Ratio 0.8 (1.0-1.7) Assessment Assessment Problems Medical Problems: (1) Accelerated hypertension Status: Acute (2) Bilateral pleural effusion Status: Acute (3) COPD with acute exacerbation Status: Acute (4) End stage renal disease Status: Acute Problems: Plan Plan of Care Problems Medical Problems: (1) Accelerated hypertension Status: Acute (2) Bilateral pleural effusion Status: Acute (3) COPD with acute exacerbation Status: Acute (4) End stage renal disease Status: Acute MITRA TAVAREZ MD Nov 29, 2016 10:19
[2016-11-29 10:21] LABS: INR 1.1 (0.8-1.1); PROTHROMBIN TIME PATIENT 13.9 SEC (11.7-14.0)
[2016-11-29] MEDS ORDERED: ONDANSETRON PF 4 MG/2 ML VIAL. IV PRN (10:30)
--- NOTE | 2016-11-29 10:38 | PDOC ---
CHINO MOLINA AVIATION SURVIVAL TECHNICIAN 11/29/16 1038: CARDIO Progress Notes Date and Time Date of Service 11/29/2016 Time of Evaluation 1030 Subjective Subjective: No Chest Pain, No Palpitations, No Dizziness, Other (mild SOA, feels weak) Vitals Vitals Vital Signs Date Time Temp Pulse Resp B/P Pulse Ox O2 Delivery O2 Flow Rate FiO2 11/29/16 08:00 Nasal Cannula 4.0 11/29/16 06:07 99 11/29/16 03:47 96.8 109 18 143/87 96.8 Weight Weight [ ] Input and Output Intake and Output Intake and Output 11/29/16 07:00 Intake Total 810 ml Output Total 200 ml Balance 610 ml Intake Oral 810 ml Output Urine Total 200 ml # Voids 7 Laboratory Labs Laboratory Tests Test 11/29/16 05:45 White Blood Count 4.1x10^3/uL (4.0-11.0) Red Blood Count 2.94x10^6/uL (3.50-5.40) Hemoglobin 9.1g/dL (12.0-15.5) Hematocrit 30.5% (36.0-47.0) Mean Corpuscular Volume 104fL (79-100) Mean Corpuscular Hemoglobin 31pg (25-35) Mean Corpuscular Hemoglobin Concent 30g/dL (31-37) Red Cell Distribution Width 20.4% (11.5-14.5) Platelet Count 141x10^3/uL (140-400) Neutrophils (%) (Auto) 91% (31-73) Lymphocytes (%) (Auto) 7% (24-48) Monocytes (%) (Auto) 2% (0-9) Eosinophils (%) (Auto) 0% (0-3) Basophils (%) (Auto) 0% (0-3) Neutrophils # (Auto) 3.7x10^3uL (1.8-7.7) Lymphocytes # (Auto) 0.3x10^3/uL (1.0-4.8) Monocytes # (Auto) 0.1x10^3/uL (0.0-1.1) Eosinophils # (Auto) 0.0x10^3/uL (0.0-0.7) Basophils # (Auto) 0.0x10^3/uL (0.0-0.2) Sodium Level 134mmol/L (136-145) Potassium Level 4.5mmol/L (3.5-5.1) Chloride Level 98mmol/L (98-107) Carbon Dioxide Level 18mmol/L (21-32) Anion Gap 18 (6-14) Blood Urea Nitrogen 55mg/dL (7-20) Creatinine 6.0mg/dL (0.6-1.0) Estimated GFR (Cockcroft-Gault) 7.7 BUN/Creatinine Ratio 9 (6-20) Glucose Level 116mg/dL (70-99) Calcium Level 8.3mg/dL (8.5-10.1) Phosphorus Level 8.2mg/dL (2.6-4.7) Magnesium Level 2.3mg/dL (1.8-2.4) Total Bilirubin 1.0mg/dL (0.2-1.0) Aspartate Amino Transf (AST/SGOT) 18U/L (15-37) Alanine Aminotransferase (ALT/SGPT) 12U/L (14-59) Alkaline Phosphatase 126U/L (46-116) Total Protein 6.6g/dL (6.4-8.2) Albumin 3.0g/dL (3.4-5.0) Albumin/Globulin Ratio 0.8 (1.0-1.7) Physical Exam HEENT: Neck Supple W Full Motion Chest: Symmetric LUNGS: Other (diminished with faint wheeze, notable for crackles) Heart: S1S2, RRR, murmurs (3/6 systolic murmur to LLS border; S3) Abdomen: Soft N/T Extremities: Other (2+ bilateral LE pitting edema) Neurology: alert, oriented, follow commands Assessment Assessment 1. Acute on chronic combined systolic/diastolic CHF: multifactorial 2. Cardiomyopathy: new with global hypokinesis and severe pulmonary HTN. Recent MPI unremarkable, suspect infiltrative involvement and chemo induced 3. Bilateral pleural effusion: worse to left, defined by CT 2. Accelerated HTN: labile 3. ESRD: in process 4. Multiple myeloma with current velcade (could contribute to arrhythmia and CHF ) 5. Palpitations: noted burst of brief SVT, but none further overnight 6. Valvular insufficiency: Mod MR/TR 7. Macrocytic anemia with leukopenia 8. Asthma exacerbation, induced by CHF. 9. Severe deconditioning Recommendation 1. Fluid off loading HD in process today 2. Lasix therapy per nephrology 3. Consult hemonc 4. Continue with optimization therapy. Depending on life expectancy, she will likely need AICD. 5. Discussed with pulmonary, thoracentesis today. 6. Continue with current antiHTN and reevaluate need for antiHTN adjustment after HD. due for 3 L removal. 7. Will need to titrate off clonidine. Will place on TTS2 and will start on BB. 7. Rehab SKYLER ZIMMERMAN MD 11/30/16 0921: CARDIO Progress Notes Assessment Assessment Patient seen and examined 11/29/16. Agree with REFRIGERATION ENGINEERING TEACHER's assessment and plan. Continue fluid removal with hemodialysis for acute on chronic combined diastolic and systolic heart failure. Plan for thoracentesis by IR today. CHINO MOLINA APRN Nov 29, 2016 10:38 SKYLER ZIMMERMAN MD Nov 30, 2016 09:21
[2016-11-29] MEDS: FENTANYL PF 100 MCG/2 ML VIAL. IV PRN ×6 (10:58→21:24)
[2016-11-29] MEDS ORDERED: LIDOCAINE 1% / SOD BICARB 8.4% 20 ML VIAL. IJ ONE (12:45)
[2016-11-29] MEDS: hydrALAZINE 20 MG/ML VIAL. IVP PRN (13:08)
[2016-11-29] MEDS: DIPHENHYDRAMINE 50 MG/ML VIAL IVP PRN (13:09)
--- NOTE | 2016-11-29 13:22 | PDOC ---
PROGRESS NOTES Subjective Subjective She had dialysis again this am but still having loose productive cough and is hungry, currently NPO for thoracentesis later this afternoon as she has persistent pleural effusion that does not resolve with dialysis and has been successfully treated in the past with thoracentesis, no new complications or new symptoms Objective Objective Vital Signs Date Time Temp Pulse Resp B/P Pulse Ox O2 Delivery O2 Flow Rate FiO2 11/29/16 13:08 110 170/92 11/29/16 12:50 20 95 Nasal Cannula 4.0 11/29/16 11:59 97.7 97.7 Intake and Output 11/29/16 07:00 Intake Total 810 ml Output Total 200 ml Balance 610 ml Intake Oral 810 ml Output Urine Total 200 ml # Voids 7 Physical Exam Abdomen: Normal bowel sounds, Soft Heart: Regular rate Extremities: No clubbing, No cyanosis, No edema General: Alert, Oriented X3, Cooperative, moderate distress HEENT: Atraumatic Lungs: Other (diminished bases) MUSCULOSKELETAL: No joint tenderness Neck: Supple Neuro: Normal speech Psych/Mental Status: Mental status NL Skin: No breakdown Assessment Assessment Problems Medical Problems: (1) Accelerated hypertension Status: Acute (2) Bilateral pleural effusion Status: Acute (3) COPD with acute exacerbation Status: Acute (4) End stage renal disease Status: Acute (5) multiple myeloma (6) hyperparathyroidism Plan Plan of Care (1) Accelerated hypertension - improved Status: Acute (2) Bilateral pleural effusion - thoracentesis today Status: Acute (3) COPD with acute exacerbation - stable, continue meds Status: Acute (4) End stage renal disease- dialyzed yesterday, today and will again tomorrow (5) multiple myeloma (6) hyperparathyroidism - she will need eventual surgery Comment Review of Relevant I have reviewed the following items ernesto (where applicable) has been applied. Labs Laboratory Tests Test 11/27/16 19:35 11/27/16 21:30 11/28/16 06:05 11/29/16 05:45 White Blood Count 7.7x10^3/uL (4.0-11.0) 3.5x10^3/uL (4.0-11.0) 4.1x10^3/uL (4.0-11.0) Red Blood Count 3.03x10^6/uL (3.50-5.40) 3.19x10^6/uL (3.50-5.40) 2.94x10^6/uL (3.50-5.40) Hemoglobin 9.4g/dL (12.0-15.5) 9.8g/dL (12.0-15.5) 9.1g/dL (12.0-15.5) Hematocrit 31.4% (36.0-47.0) 32.9% (36.0-47.0) 30.5% (36.0-47.0) Mean Corpuscular Volume 104fL (79-100) 103fL (79-100) 104fL (79-100) Mean Corpuscular Hemoglobin 31pg (25-35) 31pg (25-35) 31pg (25-35) Mean Corpuscular Hemoglobin Concent 30g/dL (31-37) 30g/dL (31-37) 30g/dL (31-37) Red Cell Distribution Width 20.3% (11.5-14.5) 20.4% (11.5-14.5) 20.4% (11.5-14.5) Platelet Count 140x10^3/uL (140-400) 140x10^3/uL (140-400) 141x10^3/uL (140-400) Neutrophils (%) (Auto) 73% (31-73) 89% (31-73) 91% (31-73) Lymphocytes (%) (Auto) 19% (24-48) 11% (24-48) 7% (24-48) Monocytes (%) (Auto) 7% (0-9) 1% (0-9) 2% (0-9) Eosinophils (%) (Auto) 1% (0-3) 0% (0-3) 0% (0-3) Basophils (%) (Auto) 0% (0-3) 0% (0-3) 0% (0-3) Neutrophils # (Auto) 5.6x10^3uL (1.8-7.7) 3.1x10^3uL (1.8-7.7) 3.7x10^3uL (1.8-7.7) Lymphocytes # (Auto) 1.5x10^3/uL (1.0-4.8) 0.4x10^3/uL (1.0-4.8) 0.3x10^3/uL (1.0-4.8) Monocytes # (Auto) 0.5x10^3/uL (0.0-1.1) 0.0x10^3/uL (0.0-1.1) 0.1x10^3/uL (0.0-1.1) Eosinophils # (Auto) 0.1x10^3/uL (0.0-0.7) 0.0x10^3/uL (0.0-0.7) 0.0x10^3/uL (0.0-0.7) Basophils # (Auto) 0.0x10^3/uL (0.0-0.2) 0.0x10^3/uL (0.0-0.2) 0.0x10^3/uL (0.0-0.2) Platelet Estimate Adequate (ADEQUATE) Adequate (ADEQUATE) Polychromasia Slight Hypochromasia Slight Poikilocytosis Slight Anisocytosis Mod Mod Sodium Level 140mmol/L (136-145) 136mmol/L (136-145) 134mmol/L (136-145) Potassium Level 3.7mmol/L (3.5-5.1) 4.1mmol/L (3.5-5.1) 4.5mmol/L (3.5-5.1) Chloride Level 102mmol/L (98-107) 99mmol/L (98-107) 98mmol/L (98-107) Carbon Dioxide Level 24mmol/L (21-32) 22mmol/L (21-32) 18mmol/L (21-32) Anion Gap 14 (6-14) 15 (6-14) 18 (6-14) Blood Urea Nitrogen 32mg/dL (7-20) 38mg/dL (7-20) 55mg/dL (7-20) Creatinine 4.3mg/dL (0.6-1.0) 4.8mg/dL (0.6-1.0) 6.0mg/dL (0.6-1.0) Estimated GFR (Cockcroft-Gault) 11.4 10.0 7.7 BUN/Creatinine Ratio 7 (6-20) 9 (6-20) Glucose Level 104mg/dL (70-99) 133mg/dL (70-99) 116mg/dL (70-99) Calcium Level 8.2mg/dL (8.5-10.1) 8.5mg/dL (8.5-10.1) 8.3mg/dL (8.5-10.1) Total Bilirubin 0.9mg/dL (0.2-1.0) 1.0mg/dL (0.2-1.0) Aspartate Amino Transf (AST/SGOT) 28U/L (15-37) 18U/L (15-37) Alanine Aminotransferase (ALT/SGPT) 18U/L (14-59) 12U/L (14-59) Alkaline Phosphatase 158U/L (46-116) 126U/L (46-116) Creatine Kinase 92U/L (26-192) Creatine Kinase MB (Mass) 3.9ng/mL (0.0-3.6) Creatine Kinase MB Relative Index 4.2% (0-4) Troponin I Quantitative 0.084ng/mL (0.000-0.055) 0.065ng/mL (0.000-0.055) PJ-Svt-D-Type Natriuretic Peptide > 36625rt/mL (0-124) Total Protein 6.7g/dL (6.4-8.2) 6.6g/dL (6.4-8.2) Albumin 3.1g/dL (3.4-5.0) 3.0g/dL (3.4-5.0) Albumin/Globulin Ratio 0.9 (1.0-1.7) 0.8 (1.0-1.7) Influenza Type A Antigen Negative (NEGATIVE) Influenza Type B Antigen Negative (NEGATIVE) Segmented Neutrophils % 89% (35-66) Lymphocytes % 11% (24-48) Large Platelets Few Phosphorus Level 8.2mg/dL (2.6-4.7) Magnesium Level 2.3mg/dL (1.8-2.4) Test 11/29/16 10:00 Prothrombin Time 13.9SEC (11.7-14.0) Prothromb Time International Ratio 1.1 (0.8-1.1) Laboratory Tests Test 11/29/16 05:45 11/29/16 10:00 White Blood Count 4.1x10^3/uL (4.0-11.0) Red Blood Count 2.94x10^6/uL (3.50-5.40) Hemoglobin 9.1g/dL (12.0-15.5) Hematocrit 30.5% (36.0-47.0) Mean Corpuscular Volume 104fL (79-100) Mean Corpuscular Hemoglobin 31pg (25-35) Mean Corpuscular Hemoglobin Concent 30g/dL (31-37) Red Cell Distribution Width 20.4% (11.5-14.5) Platelet Count 141x10^3/uL (140-400) Neutrophils (%) (Auto) 91% (31-73) Lymphocytes (%) (Auto) 7% (24-48) Monocytes (%) (Auto) 2% (0-9) Eosinophils (%) (Auto) 0% (0-3) Basophils (%) (Auto) 0% (0-3) Neutrophils # (Auto) 3.7x10^3uL (1.8-7.7) Lymphocytes # (Auto) 0.3x10^3/uL (1.0-4.8) Monocytes # (Auto) 0.1x10^3/uL (0.0-1.1) Eosinophils # (Auto) 0.0x10^3/uL (0.0-0.7) Basophils # (Auto) 0.0x10^3/uL (0.0-0.2) Sodium Level 134mmol/L (136-145) Potassium Level 4.5mmol/L (3.5-5.1) Chloride Level 98mmol/L (98-107) Carbon Dioxide Level 18mmol/L (21-32) Anion Gap 18 (6-14) Blood Urea Nitrogen 55mg/dL (7-20) Creatinine 6.0mg/dL (0.6-1.0) Estimated GFR (Cockcroft-Gault) 7.7 BUN/Creatinine Ratio 9 (6-20) Glucose Level 116mg/dL (70-99) Calcium Level 8.3mg/dL (8.5-10.1) Phosphorus Level 8.2mg/dL (2.6-4.7) Magnesium Level 2.3mg/dL (1.8-2.4) Total Bilirubin 1.0mg/dL (0.2-1.0) Aspartate Amino Transf (AST/SGOT) 18U/L (15-37) Alanine Aminotransferase (ALT/SGPT) 12U/L (14-59) Alkaline Phosphatase 126U/L (46-116) Total Protein 6.6g/dL (6.4-8.2) Albumin 3.0g/dL (3.4-5.0) Albumin/Globulin Ratio 0.8 (1.0-1.7) Prothrombin Time 13.9SEC (11.7-14.0) Prothromb Time International Ratio 1.1 (0.8-1.1) Medications Current Medications Sodium Chloride (Iv Sodium Chloride 0.9% 1000ml Bag) 1,000 ml @ 100 mls/hr Q10H IV Last administered on 11/27/16 19:49; Start 11/27/16 at 19:01; Stop at 05:00; Status DC Albuterol/ Ipratropium (Duoneb) 6 ml 1X ONCE NEB Last administered on 19:10; Start 11/27/16 at 19:30; Stop 11/27/16 at 19:31; Status DC Methylprednisolone Sodium Succinate (Solu-Medrol 125mg Vial) 125 mg 1X ONCE IV Last administered on 11/27/16 19:49; Start 11/27/16 at 19:30; Stop 11/27/16 at 19:31; Status DC Acetaminophen/ Hydrocodone Bitart (Lortab 7.5/325) 1 tab 1X ONCE PO Last administered on 11/27/16 20:29; Start 11/27/16 at 20:15; Stop 11/27/16 at 20:17; Status DC Lisinopril (Prinivil) 10 mg 1X ONCE PO Last administered on 11/27/16 21:09; Start 11/27/16 at 21:15; Stop 11/27/16 at 21:16; Status DC Amlodipine Besylate (Norvasc) 10 mg 1X ONCE PO Last administered on 11/27/16 21:08; Start 11/27/16 at 21:15; Stop 11/27/16 at 21:16; Status DC Clonidine HCl (Catapres) 0.3 mg 1X ONCE PO Last administered on 11/27/16 21:09 ; Start 11/27/16 at 21:15; Stop 11/27/16 at 21:16; Status DC Ondansetron HCl (Zofran) 4 mg PRN Q8HRS PRN IV NAUSEA/VOMITING Last administered on 11/28/16 18:24; Start 11/27/16 at 22:30; Stop 11/28/16 at 22:29; Status DC Fentanyl Citrate (Fentanyl 2ml Vial) 50 mcg PRN Q2HR PRN IV SEVERE PAIN Last administered on 11/28/16 21:31; Start 11/27/16 at 22:30; Stop 11/28/16 at 22:29; Status DC Acetaminophen (Tylenol) 650 mg PRN Q4HRS PRN PO FEVER; Start 11/27/16 at 22:30; Stop 11/28/16 at 22:29; Status DC Albuterol/ Ipratropium (Duoneb) 3 ml RTQID NEB Last administered on 11/29/16 06 :06; Start 11/28/16 at 08:00; Stop 11/29/16 at 07:59; Status DC Methylprednisolone Sodium Succinate (Solu-Medrol 40mg Vial) 60 mg Q6HRS IV Last administered on 11/29/16 05:54; Start 11/28/16 at 00:00 Diphenhydramine HCl (Benadryl) 25 mg 1X ONCE IVP Last administered on 23:30; Start 11/27/16 at 23:00; Stop 11/27/16 at 23:01; Status DC Diphenhydramine HCl (Benadryl) 25 mg PRN Q6HRS PRN IVP ITCHING Last administered on 11/29/16 13:09; Start 11/28/16 at 02:00 Albuterol Sulfate (Ventolin Neb Soln) 2.5 mg PRN Q4HRS PRN NEB SHORTNESS OF BREATH Last administered on 11/28/16 05:17; Start 11/28/16 at 05:15 Acetaminophen (Tylenol) 500 mg PRN Q6HRS PRN PO PAIN; Start 11/28/16 at 07:15 Lactobacillus Acidophilus (Bacid, Maren-Bid) 1 tab TIDWMEALS PO Last administered on 11/28/16 18:15; Start 11/28/16 at 08:00 Acyclovir (Zovirax) 200 mg BID PO Last administered on 11/28/16 20:55; Start at 09:00 Amlodipine Besylate (Norvasc) 10 mg HS PO Last administered on 11/28/16 20:55; Start 11/28/16 at 21:00 Clonidine HCl (Catapres) 0.3 mg TID PO Last administered on 11/28/16 20:54; Start 11/28/16 at 09:00 Darbepoetin Apolinar (Aranesp) 60 mcg Tu SQ Last administered on 11/28/16 20:53; Start 11/28/16 at 21:00 Diclofenac Epolamine (Flector) 1 patch BID TD ; Start 11/28/16 at 09:00; Stop 11/28/16 at 14:38; Status DC Furosemide (Lasix) 80 mg TID@ PO Last administered on 11/28/16 18:15; Start 11/28/16 at 09:00 Acetaminophen/ Hydrocodone Bitart (Lortab 7.5/325) 1 tab PRN Q4HRS PRN PO SEVERE PAIN Last administered on 11/29/16 05:55; Start 11/28/16 at 07:15 Isosorbide Mononitrate (Imdur) 30 mg DAILY PO Last administered on 11/28/16 09: 02; Start 11/28/16 at 09:00 Lidocaine/ Prilocaine (Emla) 1 oniel PRN QID PRN TP pain; Start 11/28/16 at 07:15 Lisinopril (Prinivil) 10 mg DAILY PO Last administered on 11/28/16 09:01; Start 11/28/16 at 09:00 Loperamide HCl (Imodium) 2 mg PRN Q15MIN PRN PO DIARRHEA; Start 11/28/16 at 07: 15 Lorazepam (Ativan) 1 mg PRN Q6HRS PRN PO VOMITING; Start 11/28/16 at 07:15 Methocarbamol (Robaxin) 1,500 mg PRN QID PRN PO SEVERE PAIN Last administered on 11/29/16 05:54; Start 11/28/16 at 07:15 Paroxetine HCl (Paxil) 20 mg QHS PO Last administered on 11/28/16 20:55; Start 11/28/16 at 21:00 Sevelamer Carbonate (Renvela) 800 mg TIDWMEALS PO Last administered on 18:15; Start 11/28/16 at 08:00 Dicyclomine HCl (Bentyl) 20 mg PRN TID PRN PO Stomach pain Last administered on 11/28/16 09:02; Start 11/28/16 at 07:45 Diphenhydramine HCl (Benadryl) 50 mg QHS PO Last administered on 11/28/16 20:54 ; Start 11/28/16 at 21:00 Non-Formulary Medication 2 puff DAILY IH ; Start 11/28/16 at 09:00; Stop 11/28/16 at 09:00; Status DC Folic Acid/ Multivitamins/Vit B12 (Nephro-Sheree) 1 tab DAILY PO Last administered on 11/28/16 09:00; Start 11/28/16 at 09:00 Cetirizine HCl (Zyrtec) 10 mg QHS PO Last administered on 11/28/16 20:55; Start 11/28/16 at 21:00 Non-Formulary Medication 8 mg PRN BID PRN PO NAUSEA/VOMITING; Start 11/28/16 at 07:15 Budesonide 0.5 mg 0.5 mg RTBID NEB Last administered on 11/29/16 06:06; Start 11/28/16 at 08:00 Magnesium Sulfate/ Dextrose (Magnesium Sulfate PREMIX 2GM) 50 ml @ 25 mls/hr PRN DAILY PRN IV for Mag < 1.7 on am labs; Start 11/28/16 at 10:45 Hydralazine HCl (Apresoline) 50 mg TID PO ; Start 11/28/16 at 14:00; Stop at 15:49; Status DC Hydralazine HCl (Apresoline) 10 mg PRN Q4HRS PRN IVP ELEVATED BP, SEE COMMENTS Last administered on 11/29/16 13:08; Start 11/28/16 at 12:00 Hydralazine HCl 25 mg 25 mg TID PO Last administered on 11/28/16 20:55; Start 11/28/16 at 21:00 Sodium Chloride (Iv Sodium Chloride 0.9% 1000ml Bag) 1,000 ml @ 1,000 mls/hr Q1H PRN IV hypotension; Start 11/29/16 at 08:51; Stop 11/29/16 at 14:50 Diphenhydramine HCl (Benadryl) 25 mg 1X PRN PRN IV ITCHING; Start 11/29/16 at 09 :00; Stop 11/30/16 at 08:59 Diphenhydramine HCl (Benadryl) 25 mg 1X PRN PRN IV ITCHING; Start 11/29/16 at 09 :00; Stop 11/30/16 at 08:59 Info (PHARMACY MONITORING -- do not chart) 1 each PRN DAILY PRN MC SEE COMMENTS ; Start 11/29/16 at 09:00 Info (PHARMACY MONITORING -- do not chart) 1 each PRN DAILY PRN MC SEE COMMENTS ; Start 11/29/16 at 09:00; Status UNV Fentanyl Citrate (Fentanyl 2ml Vial) 25 mcg PRN Q5MIN PRN IV MILD PAIN; Start 11/29/16 at 09:30; Stop 11/30/16 at 09:29 Fentanyl Citrate 50 mcg 50 mcg PRN Q5MIN PRN IV MODERATE PAIN Last administered on 11/29/16 10:58; Start 11/29/16 at 09:30; Stop 11/30/16 at 09:29 Lactated Ringer's (Iv Lactated Ringers) 1,000 ml @ 0 mls/hr Q0M IV ; Start 11/29 at 09:16; Stop 11/29/16 at 21:15 Lidocaine HCl 2 ml 1X PRN PRN ID IV START; Start 11/29/16 at 09:30; Stop at 09:29 Prochlorperazine Edisylate (Compazine) 5 mg PACU PRN PRN IV NAUSEA; Start at 09:30; Stop 11/30/16 at 09:29 Fentanyl Citrate (Fentanyl 2ml Vial) 50 mcg PRN Q2HR PRN IV PAIN Last administered on 11/29/16 12:50; Start 11/29/16 at 10:30 Ondansetron HCl (Zofran) 4 mg PRN Q6HRS PRN IV NAUSEA/VOMITING Last administered on 11/29/16t 10:59; Start 11/29/16 at 10:30 Lidocaine/Sodium Bicarbonate (Buffered Lidocaine 1%) 3 ml 1X ONCE IJ ; Start at 12:45; Stop 11/29/16 at 12:46; Status DC Active Scripts Active Levaquin (Levofloxacin) 500 Mg Tablet 500 Mg PO Q48H Lisinopril 10 Mg Tablet 10 Mg PO DAILY 30 Days Hydrocodone-Apap 7.5-325 (Hydrocodone Bit/Acetaminophen) 1 Each Tablet 1 Tab PO PRN Q4HRS PRN 14 Days Flector (Diclofenac Epolamine) 1 Each Patch.td12 1 Patch TD BID 30 Days Aranesp Syringe (Darbepoetin Apolinar In Polysorbat) 60 Mcg/0.3 Ml Disp.syrin 60 Mcg SQ WEEKLYHS 30 Days Furosemide 80 Mg Tablet 80 Mg PO TID 30 Days Loperamide (Loperamide Hcl) 2 Mg Capsule 2 Mg PO PRN Q15MIN PRN 30 Days Isosorbide Mononitrate Er (Isosorbide Mononitrate) 30 Mg Tab.er.24h 30 Mg PO DAILY 30 Days Maren-Bid Caplet (Acidoph/L.bulg/Bif.b/S.thermop) 1 Each Tablet 1 Tab PO TIDWMEALS 30 Days Reported Lorazepam 1 Mg Tablet 1 Mg PO PRN Q6HRS PRN Renvela (Sevelamer Carbonate) 800 Mg Tablet 2 Tab PO TID Lidocaine-Prilocaine Cream (Lidocaine/Prilocaine) 30 Gm Cream..g. 1 Oniel TP UD Dicyclomine Hcl 20 Mg Tablet 1 Tab PO TID PRN Clonidine Hcl 0.3 Mg Tablet 0.3 Mg PO TID Amlodipine Besylate 10 Mg Tablet 10 Mg PO HS Renal Caps Softgel (Folic Acid/Vitamin B Comp W-C) 1 Mg Capsule 1 Cap PO DAILY Advair 250-50 Diskus (Fluticasone/Salmeterol) 1 Each Disk.w.dev 2 Puff IH DAILY Proair Hfa Inhaler (Albuterol Sulfate) 8.5 Gm Hfa.aer.ad 2 Puff INH PRN Q6HRS PRN Acyclovir 200 Mg Capsule 200 Mg PO BID Paroxetine Hcl 20 Mg Tablet 20 Mg PO QHS Nighttime Sleep Aid (Diphenhydramine Hcl) 50 Mg Capsule 50 Mg PO QHS Ondansetron Hcl 8 Mg Tablet 8 Mg PO BID PRN Methocarbamol 750 Mg Tablet 1,500 Mg PO QID PRN Tylenol Extra Strength (Acetaminophen) 500 Mg Tablet 500 Mg PO Q6HRS PRN Claritin (Loratadine) 10 Mg Capsule 10 Mg PO HS Vitals/I & O Vital Sign - Last 24 Hours 11/28/16 11/28/16 11/28/16 11/28/16 13:47 14:47 15:45 15:45 Temp 97.7 97.7 Pulse 105 98 Resp 20 20 B/P 183/99 157/89 Pulse Ox 96 96 O2 Delivery Nasal Cannula Nasal Cannula Nasal Cannula O2 Flow Rate 4.0 4.0 11/28/16 11/28/16 11/28/16 11/28/16 16:15 18:24 19:23 19:25 Resp 20 20 Pulse Ox 96 96 O2 Delivery Nasal Cannula Nasal Cannula Nasal Cannula Nasal Cannula O2 Flow Rate 4.0 4.0 4.0 4.0 11/28/16 11/28/16 11/28/16 11/28/16 19:40 20:00 20:54 20:55 Temp 97.7 97.7 Pulse 100 98 98 Resp 24 B/P 171/90 171/90 171/90 Pulse Ox 97 O2 Delivery Nasal Cannula Nasal Cannula O2 Flow Rate 4.0 11/28/16 11/28/16 11/28/16 11/28/16 20:55 21:31 23:52 23:55 Pulse 98 97 Resp 16 24 20 B/P 171/90 148/80 Pulse Ox 97 O2 Delivery Nasal Cannula O2 Flow Rate 4.0 11/29/16 11/29/16 11/29/16 11/29/16 03:33 03:47 06:07 08:00 Temp 96.8 96.8 Pulse 109 Resp 18 B/P 143/87 Pulse Ox 97 99 O2 Delivery Room Air Room Air Nasal Cannula Nasal Cannula O2 Flow Rate 4.0 4.0 11/29/16 11/29/16 11/29/16 11/29/16 10:58 11:28 11:59 12:50 Temp 97.7 97.7 Pulse 110 Resp 20 20 18 20 B/P 170/92 Pulse Ox 95 95 O2 Delivery Nasal Cannula Nasal Cannula Room Air Nasal Cannula O2 Flow Rate 3.0 4.0 4.0 11/29/16 13:08 Pulse 110 B/P 170/92 Intake and Output 11/28/16 11/28/16 11/29/16 15:00 23:00 07:00 Intake Total 550 ml 260 ml Output Total 200 ml Balance 550 ml 60 ml Aden ELLIOTT MD Nov 29, 2016 13:22
[2016-11-29] MEDS ORDERED: BUPIVAC MPF-EPI 0.5%-1:200000 30 ML VIAL. ONE (13:57)
[2016-11-29] MEDS ORDERED: PROPOFOL 20 ML IV ONE (14:14)
[2016-11-29] MEDS ORDERED: FENTANYL PF 100 MCG/2 ML VIAL. ONE (14:14)
[2016-11-29] MEDS ORDERED: ONDANSETRON PF 4 MG/2 ML VIAL. ONE (14:14)
--- NOTE | 2016-11-29 14:28 | PDOC ---
SURGICAL PROGRESS NOTE Subjective 41 yo F with right flank skin thickening TO OR for biopsy R/B/A d/w pt Thanks for consult! [id number] Vital Signs Vital Signs Date Time Temp Pulse Resp B/P Pulse Ox O2 Delivery O2 Flow Rate FiO2 11/29/16 13:08 110 170/92 11/29/16 12:50 20 95 Nasal Cannula 4.0 11/29/16 11:59 97.7 97.7 I&O Intake and Output 11/29/16 07:00 Intake Total 810 ml Output Total 200 ml Balance 610 ml Intake Oral 810 ml Output Urine Total 200 ml # Voids 7 Labs Laboratory Tests Test 11/27/16 19:35 11/27/16 21:30 11/28/16 06:05 11/29/16 05:45 White Blood Count 7.7x10^3/uL (4.0-11.0) 3.5x10^3/uL (4.0-11.0) 4.1x10^3/uL (4.0-11.0) Red Blood Count 3.03x10^6/uL (3.50-5.40) 3.19x10^6/uL (3.50-5.40) 2.94x10^6/uL (3.50-5.40) Hemoglobin 9.4g/dL (12.0-15.5) 9.8g/dL (12.0-15.5) 9.1g/dL (12.0-15.5) Hematocrit 31.4% (36.0-47.0) 32.9% (36.0-47.0) 30.5% (36.0-47.0) Mean Corpuscular Volume 104fL (79-100) 103fL (79-100) 104fL (79-100) Mean Corpuscular Hemoglobin 31pg (25-35) 31pg (25-35) 31pg (25-35) Mean Corpuscular Hemoglobin Concent 30g/dL (31-37) 30g/dL (31-37) 30g/dL (31-37) Red Cell Distribution Width 20.3% (11.5-14.5) 20.4% (11.5-14.5) 20.4% (11.5-14.5) Platelet Count 140x10^3/uL (140-400) 140x10^3/uL (140-400) 141x10^3/uL (140-400) Neutrophils (%) (Auto) 73% (31-73) 89% (31-73) 91% (31-73) Lymphocytes (%) (Auto) 19% (24-48) 11% (24-48) 7% (24-48) Monocytes (%) (Auto) 7% (0-9) 1% (0-9) 2% (0-9) Eosinophils (%) (Auto) 1% (0-3) 0% (0-3) 0% (0-3) Basophils (%) (Auto) 0% (0-3) 0% (0-3) 0% (0-3) Neutrophils # (Auto) 5.6x10^3uL (1.8-7.7) 3.1x10^3uL (1.8-7.7) 3.7x10^3uL (1.8-7.7) Lymphocytes # (Auto) 1.5x10^3/uL (1.0-4.8) 0.4x10^3/uL (1.0-4.8) 0.3x10^3/uL (1.0-4.8) Monocytes # (Auto) 0.5x10^3/uL (0.0-1.1) 0.0x10^3/uL (0.0-1.1) 0.1x10^3/uL (0.0-1.1) Eosinophils # (Auto) 0.1x10^3/uL (0.0-0.7) 0.0x10^3/uL (0.0-0.7) 0.0x10^3/uL (0.0-0.7) Basophils # (Auto) 0.0x10^3/uL (0.0-0.2) 0.0x10^3/uL (0.0-0.2) 0.0x10^3/uL (0.0-0.2) Platelet Estimate Adequate (ADEQUATE) Adequate (ADEQUATE) Polychromasia Slight Hypochromasia Slight Poikilocytosis Slight Anisocytosis Mod Mod Sodium Level 140mmol/L (136-145) 136mmol/L (136-145) 134mmol/L (136-145) Potassium Level 3.7mmol/L (3.5-5.1) 4.1mmol/L (3.5-5.1) 4.5mmol/L (3.5-5.1) Chloride Level 102mmol/L (98-107) 99mmol/L (98-107) 98mmol/L (98-107) Carbon Dioxide Level 24mmol/L (21-32) 22mmol/L (21-32) 18mmol/L (21-32) Anion Gap 14 (6-14) 15 (6-14) 18 (6-14) Blood Urea Nitrogen 32mg/dL (7-20) 38mg/dL (7-20) 55mg/dL (7-20) Creatinine 4.3mg/dL (0.6-1.0) 4.8mg/dL (0.6-1.0) 6.0mg/dL (0.6-1.0) Estimated GFR (Cockcroft-Gault) 11.4 10.0 7.7 BUN/Creatinine Ratio 7 (6-20) 9 (6-20) Glucose Level 104mg/dL (70-99) 133mg/dL (70-99) 116mg/dL (70-99) Calcium Level 8.2mg/dL (8.5-10.1) 8.5mg/dL (8.5-10.1) 8.3mg/dL (8.5-10.1) Total Bilirubin 0.9mg/dL (0.2-1.0) 1.0mg/dL (0.2-1.0) Aspartate Amino Transf (AST/SGOT) 28U/L (15-37) 18U/L (15-37) Alanine Aminotransferase (ALT/SGPT) 18U/L (14-59) 12U/L (14-59) Alkaline Phosphatase 158U/L (46-116) 126U/L (46-116) Creatine Kinase 92U/L (26-192) Creatine Kinase MB (Mass) 3.9ng/mL (0.0-3.6) Creatine Kinase MB Relative Index 4.2% (0-4) Troponin I Quantitative 0.084ng/mL (0.000-0.055) 0.065ng/mL (0.000-0.055) SU-Bvk-Q-Type Natriuretic Peptide > 82939mr/mL (0-124) Total Protein 6.7g/dL (6.4-8.2) 6.6g/dL (6.4-8.2) Albumin 3.1g/dL (3.4-5.0) 3.0g/dL (3.4-5.0) Albumin/Globulin Ratio 0.9 (1.0-1.7) 0.8 (1.0-1.7) Influenza Type A Antigen Negative (NEGATIVE) Influenza Type B Antigen Negative (NEGATIVE) Segmented Neutrophils % 89% (35-66) Lymphocytes % 11% (24-48) Large Platelets Few Phosphorus Level 8.2mg/dL (2.6-4.7) Magnesium Level 2.3mg/dL (1.8-2.4) Test 11/29/16 10:00 Prothrombin Time 13.9SEC (11.7-14.0) Prothromb Time International Ratio 1.1 (0.8-1.1) Laboratory Tests Test 11/29/16 05:45 11/29/16 10:00 White Blood Count 4.1x10^3/uL (4.0-11.0) Red Blood Count 2.94x10^6/uL (3.50-5.40) Hemoglobin 9.1g/dL (12.0-15.5) Hematocrit 30.5% (36.0-47.0) Mean Corpuscular Volume 104fL (79-100) Mean Corpuscular Hemoglobin 31pg (25-35) Mean Corpuscular Hemoglobin Concent 30g/dL (31-37) Red Cell Distribution Width 20.4% (11.5-14.5) Platelet Count 141x10^3/uL (140-400) Neutrophils (%) (Auto) 91% (31-73) Lymphocytes (%) (Auto) 7% (24-48) Monocytes (%) (Auto) 2% (0-9) Eosinophils (%) (Auto) 0% (0-3) Basophils (%) (Auto) 0% (0-3) Neutrophils # (Auto) 3.7x10^3uL (1.8-7.7) Lymphocytes # (Auto) 0.3x10^3/uL (1.0-4.8) Monocytes # (Auto) 0.1x10^3/uL (0.0-1.1) Eosinophils # (Auto) 0.0x10^3/uL (0.0-0.7) Basophils # (Auto) 0.0x10^3/uL (0.0-0.2) Sodium Level 134mmol/L (136-145) Potassium Level 4.5mmol/L (3.5-5.1) Chloride Level 98mmol/L (98-107) Carbon Dioxide Level 18mmol/L (21-32) Anion Gap 18 (6-14) Blood Urea Nitrogen 55mg/dL (7-20) Creatinine 6.0mg/dL (0.6-1.0) Estimated GFR (Cockcroft-Gault) 7.7 BUN/Creatinine Ratio 9 (6-20) Glucose Level 116mg/dL (70-99) Calcium Level 8.3mg/dL (8.5-10.1) Phosphorus Level 8.2mg/dL (2.6-4.7) Magnesium Level 2.3mg/dL (1.8-2.4) Total Bilirubin 1.0mg/dL (0.2-1.0) Aspartate Amino Transf (AST/SGOT) 18U/L (15-37) Alanine Aminotransferase (ALT/SGPT) 12U/L (14-59) Alkaline Phosphatase 126U/L (46-116) Total Protein 6.6g/dL (6.4-8.2) Albumin 3.0g/dL (3.4-5.0) Albumin/Globulin Ratio 0.8 (1.0-1.7) Prothrombin Time 13.9SEC (11.7-14.0) Prothromb Time International Ratio 1.1 (0.8-1.1) Problem List Problems Medical Problems: (1) Accelerated hypertension Status: Acute (2) Bilateral pleural effusion Status: Acute (3) COPD with acute exacerbation Status: Acute (4) End stage renal disease Status: Acute Problems: ROBERTO AGUIRRE MD Nov 29, 2016 14:28
--- NOTE | 2016-11-29 14:39 | PDOC ---
BRIEF OPERATIVE NOTE Pre-Op Diagnosis left pleural effusion Post-Op Diagnosis same Procedure Performed Left thoracentesis Surgeon Lee Ann Anesthesia Type: Local Findings 1500 cc thin yellow fluid RADHA ANDRE MD Nov 29, 2016 14:39
--- NOTE | 2016-11-29 14:56 | RAD ---
Ultrasound Guided Thoracentesis, left side Indication: 41-year-old with left pleural effusion Sedation: Local anesthesia only Sterility: The procedure was performed in its entirety using appropriate elements of sterile technique. Technique and Findings: Following informed consent, the patient was prepped and draped in the usual sterile fashion. Ultrasound interrogation of the area of interest was performed revealing the presence of a pleural fluid collection. 1% Lidocaine was used to achieve local anesthesia over the area of interest. A small dermatotomy was made and a 5F [id number] catheter was advanced under ultrasound guidance into the pleural space [id number] cc's of thin yellow fluid was removed. The catheter was then removed and hemostasis was achieved with manual compression. Impression: US thoracentesis as described.
--- NOTE | 2016-11-29 15:13 | RAD ---
Indication status post left thoracentesis. Assess for potential complication. Single view of the chest was obtained at 1502 and is compared to an examination 2 days previously. There is less left pleural fluid than previously consistent with the interval thoracentesis. No complication is seen and specifically no pneumothorax is apparent. IMPRESSION: No complication seen associated with left-sided thoracentesis
[2016-11-29] MEDS: ONDANSETRON PF 4 MG/2 ML VIAL. IV PRN ×2 (15:16→21:24)
[2016-11-29] MEDS ORDERED: MIDAZOLAM HCL 2 MG/2 ML VIAL. ONE (16:44)
--- NOTE | 2016-11-29 17:25 | PDOC ---
BRIEF OPERATIVE NOTE Pre-Op Diagnosis Right flank skin thickening Post-Op Diagnosis same Procedure Performed Incisional biopsy Surgeon Anisa Anesthesia Type: MAC, Local Blood Loss min Complications none Additional Remarks [id number] ROBERTO AGUIRRE MD Nov 29, 2016 17:25
[2016-11-29] MEDS: CLONIDINE TTS-2 PATCH TD SCH (18:05)
[2016-11-29] MEDS: CARVEDILOL 12.5 MG TABLET PO SCH (18:07)
[2016-11-29] MEDS: CETIRIZINE HCL 10 MG TABLET PO SCH (21:09)
[2016-11-29] MEDS: PAROXETINE 20 MG TABLET. PO SCH (21:09)
[2016-11-29] MEDS: DIPHENHYDRAMINE HCL 25 MG CAPSULE PO SCH (21:09)
[2016-11-29] MEDS: AMLODIPINE BESYLATE 10 MG TABLET PO SCH (21:11)
[2016-11-29] MEDS: ALBUTEROL SULFATE 2.5 MG/3 ML NEBU. NEB PRN (21:23)
--- NOTE | 2016-11-29 22:50 | CONS ---
DATE OF CONSULTATION: PRIMARY PHYSICIAN: Dr. Camila Howard. HISTORY OF PRESENT ILLNESS: The patient is a 41-year-old female who dialyzes on Sunday, Sunday and Sunday basis. She presented to the ER with increasing shortness of breath. She is known to have a history of poor compliance with fluid restriction. She is also noted to have significant underlying COPD. She was initially felt to have COPD exacerbation, however, a chest x-ray showed bilateral pleural effusions, atelectasis/pneumonia and mild pulmonary vascular congestion. She denies fevers, chills or phlegm per se. She does have some cough, some dyspnea on exertion, shortness of breath. She claims she has not been eating well, has lost some weight. She has been challenging herself at the outpatient dialysis unit, however, she claims yesterday that was not accomplishable. In this setting, she presented to the ER for further evaluation. She has had some orthopnea at times. I have offered her dialysis today, she is contemplating the same. For rest of the details, see electronic renal consult note. MITRA TAVAREZ MD DR: PILAR/dejuan JOB#: [id number] / [id number]
[2016-11-30] MEDS: methylPREDNISolone SOD SUCC PF 40 MG/ML VIAL. IV SCH ×5 (00:06→23:36)
[2016-11-30] MEDS: FENTANYL PF 100 MCG/2 ML VIAL. IV PRN ×6 (00:06→20:34)
[2016-11-30 03:25] VITALS: BP 155/96
[2016-11-30] MEDS: ALBUTEROL SULFATE 2.5 MG/3 ML NEBU. NEB PRN ×2 (04:06→23:25)
[2016-11-30] MEDS: METHOCARBAMOL 750 MG TABLET PO PRN ×2 (04:10→23:37)
[2016-11-30] MEDS: HYDROCODONE/APAP 7.5/325MG TABLET. PO PRN (04:10)
[2016-11-30] MEDS: ONDANSETRON PF 4 MG/2 ML VIAL. IV PRN ×4 (04:10→23:36)
[2016-11-30 07:00] VITALS: BP 172/100
[2016-11-30 07:33] LABS: ALBUMIN 3.3 g/dL (3.4-5.0); CALCIUM 8.7 mg/dL (8.5-10.1); CREATININE 4.3 mg/dL (0.6-1.0); GFR 11.4; PHOSPHORUS 6.8 mg/dL (2.6-4.7); POTASSIUM 4.8 mmol/L (3.5-5.1)
--- NOTE | 2016-11-30 07:42 | OP ---
DATE OF SURGERY: 11/29/2016 REFERRING PHYSICIANS: Dr. Mitra Denney, Dr. Lindsey Somers, Dr. Edwardo Kirk, Dr. Edin Haji, Dr. Camila Howard, Dr. Calvin Garcia. Thank you for the consult. PREOPERATIVE DIAGNOSIS: Right flank skin thickening. POSTOPERATIVE DIAGNOSIS: Right flank skin thickening. PROCEDURE: Incisional biopsy of right flank skin. SURGEON: Nicanor Lange MD ESTIMATED BLOOD LOSS: Minimal. COMPLICATIONS: None. INDICATIONS: A 41-year-old female with multiple medical problems who has known right flank skin thickening. She is concerned for possible calciphylaxis. Subsequently, an incisional biopsy is requested. The patient was informed of the risks, benefits and alternatives of the procedure, risks including but not limited to bleeding, infection, damage to surrounding structures, risk of anesthesia. The patient appears to understand and her insightful questions were answered and she agrees to proceed. DESCRIPTION OF PROCEDURE: After obtaining informed consent, the patient was taken to the operating room, induced under monitored anesthesia care. The patient was prepped and draped in the usual fashion in the right flank area. A transverse incision was made overlying the area preoperatively marked with the patient over the most thickest part. This is tanned, thickened, bronzed tissue. Elliptical incision was made down through full thickness skin down to the hypodermis and completely excised and sent to pathology for evaluation. Hemostasis was obtained using electrocautery. Subcutaneous tissues were reapproximated with 3-0 Vicryl. Skin incisions were reapproximated with 4-0 Monocryl in a subcuticular fashion. Sterile dressing was placed over the wound. The patient tolerated the procedure well and was discharged to the recovery room in stable condition. All counts were correct. There were no immediate complications. NICANOR ALNGE MD DR: LIZETTE/nts JOB#: [id number] / [id number] CAMILA Tijerina MD, MITRA GARCIA, CALVIN SOMERS, LINDSEY KIRK, EDWARDO HAJI, EDIN MCCORD
[2016-11-30] MEDS: BUDESONIDE 0.5 MG/2 ML NEBU NEB SCH ×2 (07:47→20:00)
--- NOTE | 2016-11-30 08:34 | PDOC ---
PROGRESS NOTES Subjective Subjective Patient reports feeling nauseated overnight and into this morning but denies vomiting and states that Zofran has helped to ease the nausea. Reports that her shortness of breath is improved after the thoracentesis yesterday. Patient states that she is still coughing up clear to yellow sputum. She also reports that her back pain is worse today compared to yesterday. Objective Objective Vital Signs Date Time Temp Pulse Resp B/P Pulse Ox O2 Delivery O2 Flow Rate FiO2 11/30/16 07:49 100 Nasal Cannula 4.0 11/30/16 03:25 97.1 98 16 155/96 97.1 Intake and Output 11/30/16 07:00 Intake Total 410 ml Output Total 1300 ml Balance -890 ml Intake Oral 410 ml Output Urine Total 300 ml Other 1000 ml Physical Exam Abdomen: Normal bowel sounds, Soft, No tenderness, No masses Heart: Regular rate, Normal S1, Normal S2, No murmurs Extremities: No clubbing, No edema, Normal pulses General: Alert, Oriented X3, mild distress HEENT: Atraumatic, Mucous membr. moist/pink Lungs: Other (Coarse breath sounds throughout all lung laguerre, crackles best heard in bilateral lung bases) MUSCULOSKELETAL: No muscular tenderness noted, Other Psych/Mental Status: Mood NL Assessment Assessment Problems Medical Problems: (1) Accelerated hypertension Status: Acute (2) Bilateral pleural effusion Status: Acute (3) COPD with acute exacerbation Status: Acute (4) End stage renal disease Status: Acute (5) Right flank mass (6) multiple myeloma (7) cardiomyopathy with valvular heart disease Status: Acute Plan Plan of Care Medical Problems: (1) Accelerated hypertension-stable, continue current medication regimen, consider decreasing amlodipine and increasing carvedilol Status: Acute (2) Bilateral pleural effusion-improved, s/p thoracentesis yesterday Status: Acute (3) COPD with acute exacerbation-stable, continue current regimen Status: Acute (4) End stage renal disease-resume routine M-W-F dialysis Status: Acute (5) Right flank mass-biopsy results pending (6) multiple myeloma - Dr. Gordon does not think her chemo ix cause of her diminished EF (7) cardiomyopathy with valvular heart disease - at high risk for Afib, will likely need AICD Status: Acute Status: Acute Comment Review of Relevant I have reviewed the following items ernesto (where applicable) has been applied. Labs Laboratory Tests Test 11/29/16 05:45 11/29/16 10:00 11/30/16 06:40 White Blood Count 4.1x10^3/uL (4.0-11.0) Red Blood Count 2.94x10^6/uL (3.50-5.40) Hemoglobin 9.1g/dL (12.0-15.5) Hematocrit 30.5% (36.0-47.0) Mean Corpuscular Volume 104fL (79-100) Mean Corpuscular Hemoglobin 31pg (25-35) Mean Corpuscular Hemoglobin Concent 30g/dL (31-37) Red Cell Distribution Width 20.4% (11.5-14.5) Platelet Count 141x10^3/uL (140-400) Neutrophils (%) (Auto) 91% (31-73) Lymphocytes (%) (Auto) 7% (24-48) Monocytes (%) (Auto) 2% (0-9) Eosinophils (%) (Auto) 0% (0-3) Basophils (%) (Auto) 0% (0-3) Neutrophils # (Auto) 3.7x10^3uL (1.8-7.7) Lymphocytes # (Auto) 0.3x10^3/uL (1.0-4.8) Monocytes # (Auto) 0.1x10^3/uL (0.0-1.1) Eosinophils # (Auto) 0.0x10^3/uL (0.0-0.7) Basophils # (Auto) 0.0x10^3/uL (0.0-0.2) Sodium Level 134mmol/L (136-145) 136mmol/L (136-145) Potassium Level 4.5mmol/L (3.5-5.1) 4.8mmol/L (3.5-5.1) Chloride Level 98mmol/L (98-107) 97mmol/L (98-107) Carbon Dioxide Level 18mmol/L (21-32) 25mmol/L (21-32) Anion Gap 18 (6-14) 14 (6-14) Blood Urea Nitrogen 55mg/dL (7-20) 42mg/dL (7-20) Creatinine 6.0mg/dL (0.6-1.0) 4.3mg/dL (0.6-1.0) Estimated GFR (Cockcroft-Gault) 7.7 11.4 BUN/Creatinine Ratio 9 (6-20) Glucose Level 116mg/dL (70-99) 102mg/dL (70-99) Calcium Level 8.3mg/dL (8.5-10.1) 8.7mg/dL (8.5-10.1) Phosphorus Level 8.2mg/dL (2.6-4.7) 6.8mg/dL (2.6-4.7) Magnesium Level 2.3mg/dL (1.8-2.4) 2.1mg/dL (1.8-2.4) Total Bilirubin 1.0mg/dL (0.2-1.0) Aspartate Amino Transf (AST/SGOT) 18U/L (15-37) Alanine Aminotransferase (ALT/SGPT) 12U/L (14-59) Alkaline Phosphatase 126U/L (46-116) Total Protein 6.6g/dL (6.4-8.2) Albumin 3.0g/dL (3.4-5.0) 3.3g/dL (3.4-5.0) Albumin/Globulin Ratio 0.8 (1.0-1.7) Prothrombin Time 13.9SEC (11.7-14.0) Prothromb Time International Ratio 1.1 (0.8-1.1) Laboratory Tests Test 11/29/16 10:00 11/30/16 06:40 Prothrombin Time 13.9SEC (11.7-14.0) Prothromb Time International Ratio 1.1 (0.8-1.1) Sodium Level 136mmol/L (136-145) Potassium Level 4.8mmol/L (3.5-5.1) Chloride Level 97mmol/L (98-107) Carbon Dioxide Level 25mmol/L (21-32) Anion Gap 14 (6-14) Blood Urea Nitrogen 42mg/dL (7-20) Creatinine 4.3mg/dL (0.6-1.0) Estimated GFR (Cockcroft-Gault) 11.4 Glucose Level 102mg/dL (70-99) Calcium Level 8.7mg/dL (8.5-10.1) Phosphorus Level 6.8mg/dL (2.6-4.7) Magnesium Level 2.1mg/dL (1.8-2.4) Albumin 3.3g/dL (3.4-5.0) Microbiology 11/29/16 Gram Stain - Final, Complete Medications Current Medications Sodium Chloride (Iv Sodium Chloride 0.9% 1000ml Bag) 1,000 ml @ 100 mls/hr Q10H IV Last administered on 11/27/16 19:49; Start 11/27/16 at 19:01; Stop at 05:00; Status DC Albuterol/ Ipratropium (Duoneb) 6 ml 1X ONCE NEB Last administered on 19:10; Start 11/27/16 at 19:30; Stop 11/27/16 at 19:31; Status DC Methylprednisolone Sodium Succinate (Solu-Medrol 125mg Vial) 125 mg 1X ONCE IV Last administered on 11/27/16 19:49; Start 11/27/16 at 19:30; Stop 11/27/16 at 19:31; Status DC Acetaminophen/ Hydrocodone Bitart (Lortab 7.5/325) 1 tab 1X ONCE PO Last administered on 11/27/16 20:29; Start 11/27/16 at 20:15; Stop 11/27/16 at 20:17; Status DC Lisinopril (Prinivil) 10 mg 1X ONCE PO Last administered on 11/27/16 21:09; Start 11/27/16 at 21:15; Stop 11/27/16 at 21:16; Status DC Amlodipine Besylate (Norvasc) 10 mg 1X ONCE PO Last administered on 11/27/16 21:08; Start 11/27/16 at 21:15; Stop 11/27/16 at 21:16; Status DC Clonidine HCl (Catapres) 0.3 mg 1X ONCE PO Last administered on 11/27/16 21:09 ; Start 11/27/16 at 21:15; Stop 11/27/16 at 21:16; Status DC Ondansetron HCl (Zofran) 4 mg PRN Q8HRS PRN IV NAUSEA/VOMITING Last administered on 11/28/16 18:24; Start 11/27/16 at 22:30; Stop 11/28/16 at 22:29; Status DC Fentanyl Citrate (Fentanyl 2ml Vial) 50 mcg PRN Q2HR PRN IV SEVERE PAIN Last administered on 11/28/16 21:31; Start 11/27/16 at 22:30; Stop 11/28/16 at 22:29; Status DC Acetaminophen (Tylenol) 650 mg PRN Q4HRS PRN PO FEVER; Start 11/27/16 at 22:30; Stop 11/28/16 at 22:29; Status DC Albuterol/ Ipratropium (Duoneb) 3 ml RTQID NEB Last administered on 11/29/16 06 :06; Start 11/28/16 at 08:00; Stop 11/29/16 at 07:59; Status DC Methylprednisolone Sodium Succinate (Solu-Medrol 40mg Vial) 60 mg Q6HRS IV Last administered on 11/30/16 06:10; Start 11/28/16 at 00:00 Diphenhydramine HCl (Benadryl) 25 mg 1X ONCE IVP Last administered on 23:30; Start 11/27/16 at 23:00; Stop 11/27/16 at 23:01; Status DC Diphenhydramine HCl (Benadryl) 25 mg PRN Q6HRS PRN IVP ITCHING Last administered on 11/29/16 13:09; Start 11/28/16 at 02:00 Albuterol Sulfate (Ventolin Neb Soln) 2.5 mg PRN Q4HRS PRN NEB SHORTNESS OF BREATH Last administered on 11/30/16 04:06; Start 11/28/16 at 05:15 Acetaminophen (Tylenol) 500 mg PRN Q6HRS PRN PO PAIN Last administered on 06:13; Start 11/28/16 at 07:15 Lactobacillus Acidophilus (Bacid, Maren-Bid) 1 tab TIDWMEALS PO Last administered on 11/29/16 18:03; Start 11/28/16 at 08:00 Acyclovir (Zovirax) 200 mg BID PO Last administered on 11/29/16 21:09; Start at 09:00 Amlodipine Besylate (Norvasc) 10 mg HS PO Last administered on 11/29/16 21:11; Start 11/28/16 at 21:00 Clonidine HCl (Catapres) 0.3 mg TID PO Last administered on 11/28/16 20:54; Start 11/28/16 at 09:00; Stop 11/29/16 at 14:02; Status DC Darbepoetin Apolinar (Aranesp) 60 mcg Tu SQ Last administered on 11/28/16 20:53; Start 11/28/16 at 21:00 Diclofenac Epolamine (Flector) 1 patch BID TD ; Start 11/28/16 at 09:00; Stop 11/28/16 at 14:38; Status DC Furosemide (Lasix) 80 mg TID@,,17 PO Last administered on 11/29/16 18:04; Start 11/28/16 at 09:00 Acetaminophen/ Hydrocodone Bitart (Lortab 7.5/325) 1 tab PRN Q4HRS PRN PO SEVERE PAIN Last administered on 11/30/16 04:10; Start 11/28/16 at 07:15 Isosorbide Mononitrate (Imdur) 30 mg DAILY PO Last administered on 11/28/16 09: 02; Start 11/28/16 at 09:00 Lidocaine/ Prilocaine (Emla) 1 oniel PRN QID PRN TP pain; Start 11/28/16 at 07:15 Lisinopril (Prinivil) 10 mg DAILY PO Last administered on 11/28/16 09:01; Start 11/28/16 at 09:00 Loperamide HCl (Imodium) 2 mg PRN Q15MIN PRN PO DIARRHEA; Start 11/28/16 at 07: 15 Lorazepam (Ativan) 1 mg PRN Q6HRS PRN PO VOMITING; Start 11/28/16 at 07:15 Methocarbamol (Robaxin) 1,500 mg PRN QID PRN PO SEVERE PAIN Last administered on 11/30/16 04:10; Start 11/28/16 at 07:15 Paroxetine HCl (Paxil) 20 mg QHS PO Last administered on 11/29/16 21:09; Start 11/28/16 at 21:00 Sevelamer Carbonate (Renvela) 800 mg TIDWMEALS PO Last administered on 18:04; Start 11/28/16 at 08:00 Dicyclomine HCl (Bentyl) 20 mg PRN TID PRN PO Stomach pain Last administered on 11/28/16 09:02; Start 11/28/16 at 07:45 Diphenhydramine HCl (Benadryl) 50 mg QHS PO Last administered on 11/29/16 21:09 ; Start 11/28/16 at 21:00 Non-Formulary Medication 2 puff DAILY IH ; Start 11/28/16 at 09:00; Stop 11/28/16 at 09:00; Status DC Folic Acid/ Multivitamins/Vit B12 (Nephro-Sheree) 1 tab DAILY PO Last administered on 11/28/16 09:00; Start 11/28/16 at 09:00 Cetirizine HCl (Zyrtec) 10 mg QHS PO Last administered on 11/29/16 21:09; Start 11/28/16 at 21:00 Non-Formulary Medication 8 mg PRN BID PRN PO NAUSEA/VOMITING; Start 11/28/16 at 07:15 Budesonide 0.5 mg 0.5 mg RTBID NEB Last administered on 11/30/16 07:47; Start 11/28/16 at 08:00 Magnesium Sulfate/ Dextrose (Magnesium Sulfate PREMIX 2GM) 50 ml @ 25 mls/hr PRN DAILY PRN IV for Mag < 1.7 on am labs; Start 11/28/16 at 10:45 Hydralazine HCl (Apresoline) 50 mg TID PO ; Start 11/28/16 at 14:00; Stop at 15:49; Status DC Hydralazine HCl (Apresoline) 10 mg PRN Q4HRS PRN IVP ELEVATED BP, SEE COMMENTS Last administered on 11/29/16 13:08; Start 11/28/16 at 12:00 Hydralazine HCl 25 mg 25 mg TID PO Last administered on 11/29/16 21:10; Start 11/28/16 at 21:00 Sodium Chloride (Iv Sodium Chloride 0.9% 1000ml Bag) 1,000 ml @ 1,000 mls/hr Q1H PRN IV hypotension; Start 11/29/16 at 08:51; Stop 11/29/16 at 14:50; Status DC Diphenhydramine HCl (Benadryl) 25 mg 1X PRN PRN IV ITCHING; Start 11/29/16 at 09 :00; Stop 11/30/16 at 08:59 Diphenhydramine HCl (Benadryl) 25 mg 1X PRN PRN IV ITCHING; Start 11/29/16 at 09 :00; Stop 11/30/16 at 08:59 Info (PHARMACY MONITORING -- do not chart) 1 each PRN DAILY PRN MC SEE COMMENTS ; Start 11/29/16 at 09:00 Info (PHARMACY MONITORING -- do not chart) 1 each PRN DAILY PRN MC SEE COMMENTS ; Start 11/29/16 at 09:00; Status UNV Fentanyl Citrate (Fentanyl 2ml Vial) 25 mcg PRN Q5MIN PRN IV MILD PAIN; Start 11/29/16 at 09:30; Stop 11/30/16 at 03:58; Status DC Fentanyl Citrate 50 mcg 50 mcg PRN Q5MIN PRN IV MODERATE PAIN Last administered on 11/29/16 17:38; Start 11/29/16 at 09:30; Stop 11/30/16 at 03:58; Status DC Lactated Ringer's (Iv Lactated Ringers) 1,000 ml @ 0 mls/hr Q0M IV ; Start 11/29 at 09:16; Stop 11/29/16 at 21:15; Status DC Lidocaine HCl 2 ml 1X PRN PRN ID IV START; Start 11/29/16 at 09:30; Stop at 03:58; Status DC Prochlorperazine Edisylate (Compazine) 5 mg PACU PRN PRN IV NAUSEA; Start at 09:30; Stop 11/30/16 at 03:58; Status DC Fentanyl Citrate (Fentanyl 2ml Vial) 50 mcg PRN Q2HR PRN IV PAIN Last administered on 11/30/16 03:03; Start 11/29/16 at 10:30 Ondansetron HCl (Zofran) 4 mg PRN Q6HRS PRN IV NAUSEA/VOMITING Last administered on 11/29/16 10:59; Start 11/29/16 at 10:30; Stop 11/29/16 at 14:41; Status DC Lidocaine/Sodium Bicarbonate (Buffered Lidocaine 1%) 3 ml 1X ONCE IJ Last administered on 11/29/16 14:32; Start 11/29/16 at 12:45; Stop 11/29/16 at 12:46; Status DC Bupivacaine HCl/ Epinephrine Bitart (Sensorcain-Mpf Epi 0.5%-1:188510) 30 ml STK -MED ONCE .ROUTE Last administered on 11/29/16 16:47; Start 11/29/16 at 13:57; Stop 11/29/16 at 13:58; Status DC Carvedilol (Coreg) 12.5 mg BIDWMEALS PO Last administered on 11/29/16 18:07; Start 11/29/16 at 17:00 Clonidine HCl 1 patch 1 patch WEEKLY TD Last administered on 11/29/16 18:05; Start 11/29/16 at 14:30 Propofol (Diprivan) 20 ml @ As Directed STK-MED ONCE IV ; Start 11/29/16 at 14:14 ; Stop 11/29/16 at 14:15; Status DC Fentanyl Citrate (Fentanyl 2ml Vial) 100 mcg STK-MED ONCE .ROUTE ; Start at 14:14; Stop 11/29/16 at 14:15; Status DC Ondansetron HCl (Zofran) 4 mg STK-MED ONCE .ROUTE ; Start 11/29/16 at 14:14; Stop 11/29/16 at 14:15; Status DC Ondansetron HCl (Zofran) 8 mg PRN Q6HRS PRN IV NAUSEA/VOMITING Last administered on 11/30/16 04:10; Start 11/29/16 at 14:45 Midazolam HCl (Versed) 2 mg STK-MED ONCE .ROUTE ; Start 11/29/16 at 16:44; Stop 11/29/16 at 16:45; Status DC Active Scripts Active Levaquin (Levofloxacin) 500 Mg Tablet 500 Mg PO Q48H Lisinopril 10 Mg Tablet 10 Mg PO DAILY 30 Days Hydrocodone-Apap 7.5-325 (Hydrocodone Bit/Acetaminophen) 1 Each Tablet 1 Tab PO PRN Q4HRS PRN 14 Days Flector (Diclofenac Epolamine) 1 Each Patch.td12 1 Patch TD BID 30 Days Aranesp Syringe (Darbepoetin Apolinar In Polysorbat) 60 Mcg/0.3 Ml Disp.syrin 60 Mcg SQ WEEKLYHS 30 Days Furosemide 80 Mg Tablet 80 Mg PO TID 30 Days Loperamide (Loperamide Hcl) 2 Mg Capsule 2 Mg PO PRN Q15MIN PRN 30 Days Isosorbide Mononitrate Er (Isosorbide Mononitrate) 30 Mg Tab.er.24h 30 Mg PO DAILY 30 Days Maren-Bid Caplet (Acidoph/L.bulg/Bif.b/S.thermop) 1 Each Tablet 1 Tab PO TIDWMEALS 30 Days Reported Lorazepam 1 Mg Tablet 1 Mg PO PRN Q6HRS PRN Renvela (Sevelamer Carbonate) 800 Mg Tablet 2 Tab PO TID Lidocaine-Prilocaine Cream (Lidocaine/Prilocaine) 30 Gm Cream..g. 1 Oniel TP UD Dicyclomine Hcl 20 Mg Tablet 1 Tab PO TID PRN Clonidine Hcl 0.3 Mg Tablet 0.3 Mg PO TID Amlodipine Besylate 10 Mg Tablet 10 Mg PO HS Renal Caps Softgel (Folic Acid/Vitamin B Comp W-C) 1 Mg Capsule 1 Cap PO DAILY Advair 250-50 Diskus (Fluticasone/Salmeterol) 1 Each Disk.w.dev 2 Puff IH DAILY Proair Hfa Inhaler (Albuterol Sulfate) 8.5 Gm Hfa.aer.ad 2 Puff INH PRN Q6HRS PRN Acyclovir 200 Mg Capsule 200 Mg PO BID Paroxetine Hcl 20 Mg Tablet 20 Mg PO QHS Nighttime Sleep Aid (Diphenhydramine Hcl) 50 Mg Capsule 50 Mg PO QHS Ondansetron Hcl 8 Mg Tablet 8 Mg PO BID PRN Methocarbamol 750 Mg Tablet 1,500 Mg PO QID PRN Tylenol Extra Strength (Acetaminophen) 500 Mg Tablet 500 Mg PO Q6HRS PRN Claritin (Loratadine) 10 Mg Capsule 10 Mg PO HS Vitals/I & O Vital Sign - Last 24 Hours 11/29/16 11/29/16 11/29/16 11/29/16 10:58 11:59 12:50 13:08 Temp 97.7 97.7 Pulse 110 110 Resp 20 18 20 B/P 170/92 170/92 Pulse Ox 95 95 O2 Delivery Nasal Cannula Room Air Nasal Cannula O2 Flow Rate 3.0 4.0 11/29/16 11/29/16 11/29/16 11/29/16 13:20 14:59 15:16 15:25 Temp 97.7 98.6 97.7 98.6 Pulse 61 108 Resp 20 18 20 16 B/P 120/75 165/102 Pulse Ox 97 99 97 O2 Delivery Nasal Cannula Room Air Nasal Cannula Nasal Cannula O2 Flow Rate 4.0 4.0 4 11/29/16 11/29/16 11/29/16 11/29/16 17:04 17:10 17:19 17:23 Temp 98.4 98.4 Pulse 107 106 Resp 16 16 16 B/P 144/79 157/82 Pulse Ox 97 96 97 O2 Delivery Nasal Cannula Nasal Cannula Nasal Cannula Nasal Cannula O2 Flow Rate 4 4 4 4.0 11/29/16 11/29/16 11/29/16 11/29/16 17:34 17:38 18:00 18:07 Pulse 106 107 106 Resp 16 18 B/P 180/94 169/94 180/94 Pulse Ox 95 96 99 O2 Delivery Nasal Cannula Nasal Cannula Room Air O2 Flow Rate 4 4.0 11/29/16 11/29/16 11/29/16 11/29/16 18:09 18:15 18:30 18:45 Pulse 107 107 99 Resp 20 18 18 18 B/P 177/99 178/97 173/95 Pulse Ox 97 97 99 O2 Delivery Nasal Cannula Room Air Room Air Room Air O2 Flow Rate 4.0 11/29/16 11/29/16 11/29/16 11/29/16 19:01 19:30 20:00 20:00 Temp 98.1 98.1 98.1 98.1 Pulse 105 97 97 Resp 18 16 16 B/P 167/98 153/80 149/90 Pulse Ox 100 98 97 O2 Delivery Nasal Cannula Nasal Cannula Nasal Cannula Nasal Cannula O2 Flow Rate 4.0 4.0 4.0 4.0 11/29/16 11/29/16 11/29/16 11/29/16 21:00 21:10 21:11 21:25 Pulse 97 97 97 Resp 16 B/P 158/80 149/90 149/90 Pulse Ox 98 98 O2 Delivery Nasal Cannula Nasal Cannula O2 Flow Rate 4.0 4.0 2/811/30/16 11/30/16 11/30/16 23:32 03:25 04:06 07:49 Temp 97.7 97.1 97.7 97.1 Pulse 97 98 Resp 16 16 B/P 145/85 155/96 Pulse Ox 97 98 100 100 O2 Delivery Nasal Cannula Nasal Cannula Nasal Cannula Nasal Cannula O2 Flow Rate 4.0 4.0 4.0 4.0 Intake and Output 11/29/16 11/29/16 11/30/16 15:00 23:00 07:00 Intake Total 10 ml 400 ml Output Total 1100 ml 200 ml Balance -1100 ml 10 ml 200 ml Aden ELLIOTT MD Nov 30, 2016 08:34
[2016-11-30] MEDS: FUROSEMIDE 80 MG TABLET PO SCH ×3 (09:28→18:06)
[2016-11-30] MEDS: PANTOPRAZOLE 40 MG TABLET. PO SCH (09:29)
[2016-11-30] MEDS: FOLIC/VIT B COMP W-C (RENAL) TABLET. PO SCH (09:29)
[2016-11-30] MEDS: HYDRALAZINE 25 MG TABLET PO SCH ×2 (09:29→14:14)
[2016-11-30] MEDS: LACTOBACILLUS ACIDOPH & BULGAR 1 TABLET. PO SCH ×3 (09:29→18:06)
[2016-11-30] MEDS: CARVEDILOL 12.5 MG TABLET PO SCH ×2 (09:29→18:06)
[2016-11-30] MEDS: ACYCLOVIR 200 MG CAPSULE PO SCH ×2 (09:30→20:36)
[2016-11-30] MEDS: SEVELAMER CARBONATE 800 MG TABLET. PO SCH ×3 (09:30→18:06)
[2016-11-30] MEDS: LISINOPRIL 10 MG TABLET PO SCH (09:30)
[2016-11-30] MEDS: ISOSORBIDE MONONITRATE ER 30 MG TAB.ER.24H PO SCH (09:30)
[2016-11-30] MEDS: DIPHENHYDRAMINE 50 MG/ML VIAL IVP PRN (10:05)
--- NOTE | 2016-11-30 10:36 | PDOC ---
SURGICAL PROGRESS NOTE Subjective some n/v, pain to biopsy site Vital Signs Vital Signs Date Time Temp Pulse Resp B/P Pulse Ox O2 Delivery O2 Flow Rate FiO2 11/30/16 10:05 16 100 Nasal Cannula 4.0 11/30/16 09:30 109 172/100 11/30/16 07:00 97.7 97.7 I&O Intake and Output 11/30/16 07:00 Intake Total 410 ml Output Total 1300 ml Balance -890 ml Intake Oral 410 ml Output Urine Total 300 ml Other 1000 ml General: Alert, Oriented X3, Cooperative, No acute distress Skin: Other (right flank incision c/d/i, no erythema) Labs Laboratory Tests Test 11/29/16 05:45 11/29/16 10:00 11/29/16 14:10 11/30/16 06:40 White Blood Count 4.1x10^3/uL (4.0-11.0) Red Blood Count 2.94x10^6/uL (3.50-5.40) Hemoglobin 9.1g/dL (12.0-15.5) Hematocrit 30.5% (36.0-47.0) Mean Corpuscular Volume 104fL (79-100) Mean Corpuscular Hemoglobin 31pg (25-35) Mean Corpuscular Hemoglobin Concent 30g/dL (31-37) Red Cell Distribution Width 20.4% (11.5-14.5) Platelet Count 141x10^3/uL (140-400) Neutrophils (%) (Auto) 91% (31-73) Lymphocytes (%) (Auto) 7% (24-48) Monocytes (%) (Auto) 2% (0-9) Eosinophils (%) (Auto) 0% (0-3) Basophils (%) (Auto) 0% (0-3) Neutrophils # (Auto) 3.7x10^3uL (1.8-7.7) Lymphocytes # (Auto) 0.3x10^3/uL (1.0-4.8) Monocytes # (Auto) 0.1x10^3/uL (0.0-1.1) Eosinophils # (Auto) 0.0x10^3/uL (0.0-0.7) Basophils # (Auto) 0.0x10^3/uL (0.0-0.2) Sodium Level 134mmol/L (136-145) 136mmol/L (136-145) Potassium Level 4.5mmol/L (3.5-5.1) 4.8mmol/L (3.5-5.1) Chloride Level 98mmol/L (98-107) 97mmol/L (98-107) Carbon Dioxide Level 18mmol/L (21-32) 25mmol/L (21-32) Anion Gap 18 (6-14) 14 (6-14) Blood Urea Nitrogen 55mg/dL (7-20) 42mg/dL (7-20) Creatinine 6.0mg/dL (0.6-1.0) 4.3mg/dL (0.6-1.0) Estimated GFR (Cockcroft-Gault) 7.7 11.4 BUN/Creatinine Ratio 9 (6-20) Glucose Level 116mg/dL (70-99) 102mg/dL (70-99) Calcium Level 8.3mg/dL (8.5-10.1) 8.7mg/dL (8.5-10.1) Phosphorus Level 8.2mg/dL (2.6-4.7) 6.8mg/dL (2.6-4.7) Magnesium Level 2.3mg/dL (1.8-2.4) 2.1mg/dL (1.8-2.4) Total Bilirubin 1.0mg/dL (0.2-1.0) Aspartate Amino Transf (AST/SGOT) 18U/L (15-37) Alanine Aminotransferase (ALT/SGPT) 12U/L (14-59) Alkaline Phosphatase 126U/L (46-116) Total Protein 6.6g/dL (6.4-8.2) Albumin 3.0g/dL (3.4-5.0) 3.3g/dL (3.4-5.0) Albumin/Globulin Ratio 0.8 (1.0-1.7) Prothrombin Time 13.9SEC (11.7-14.0) Prothromb Time International Ratio 1.1 (0.8-1.1) Body Fluid Total Protein 3.3g/dL (.) Body Fluid Lactate Dehydrogenase 105IU/L (.) Laboratory Tests Test 11/29/16 14:10 29/17 06:40 Body Fluid Total Protein 3.3g/dL (.) Body Fluid Lactate Dehydrogenase 105IU/L (.) Sodium Level 136mmol/L (136-145) Potassium Level 4.8mmol/L (3.5-5.1) Chloride Level 97mmol/L (98-107) Carbon Dioxide Level 25mmol/L (21-32) Anion Gap 14 (6-14) Blood Urea Nitrogen 42mg/dL (7-20) Creatinine 4.3mg/dL (0.6-1.0) Estimated GFR (Cockcroft-Gault) 11.4 Glucose Level 102mg/dL (70-99) Calcium Level 8.7mg/dL (8.5-10.1) Phosphorus Level 6.8mg/dL (2.6-4.7) Magnesium Level 2.1mg/dL (1.8-2.4) Albumin 3.3g/dL (3.4-5.0) Problem List Problems Medical Problems: (1) Accelerated hypertension Status: Acute (2) Bilateral pleural effusion Status: Acute (3) COPD with acute exacerbation Status: Acute (4) End stage renal disease Status: Acute Assessment/Plan flank biopsy, path pending Problems: SHASHANK RAMOS APRN Nov 30, 2016 10:36
[2016-11-30 11:00] VITALS: BP 142/85
--- NOTE | 2016-11-30 11:15 | PDOC ---
PULMONARY PROGRESS NOTES Subjective no soa Vitals Vital Signs Date Time Temp Pulse Resp B/P Pulse Ox O2 Delivery O2 Flow Rate FiO2 11/30/16 10:05 16 100 Nasal Cannula 4.0 11/30/16 09:30 109 172/100 11/30/16 07:00 97.7 97.7 General: Alert, No acute distress Lungs: Other (decrease bs bases) Cardiovascular: S1, S2 Abdomen: Soft Neuro Exam: Alert Extremities: No Edema Skin: Warm Labs Laboratory Tests Test 11/29/16 05:45 11/29/16 10:00 11/29/16 14:10 11/30/16 06:40 White Blood Count 4.1x10^3/uL (4.0-11.0) Red Blood Count 2.94x10^6/uL (3.50-5.40) Hemoglobin 9.1g/dL (12.0-15.5) Hematocrit 30.5% (36.0-47.0) Mean Corpuscular Volume 104fL (79-100) Mean Corpuscular Hemoglobin 31pg (25-35) Mean Corpuscular Hemoglobin Concent 30g/dL (31-37) Red Cell Distribution Width 20.4% (11.5-14.5) Platelet Count 141x10^3/uL (140-400) Neutrophils (%) (Auto) 91% (31-73) Lymphocytes (%) (Auto) 7% (24-48) Monocytes (%) (Auto) 2% (0-9) Eosinophils (%) (Auto) 0% (0-3) Basophils (%) (Auto) 0% (0-3) Neutrophils # (Auto) 3.7x10^3uL (1.8-7.7) Lymphocytes # (Auto) 0.3x10^3/uL (1.0-4.8) Monocytes # (Auto) 0.1x10^3/uL (0.0-1.1) Eosinophils # (Auto) 0.0x10^3/uL (0.0-0.7) Basophils # (Auto) 0.0x10^3/uL (0.0-0.2) Sodium Level 134mmol/L (136-145) 136mmol/L (136-145) Potassium Level 4.5mmol/L (3.5-5.1) 4.8mmol/L (3.5-5.1) Chloride Level 98mmol/L (98-107) 97mmol/L (98-107) Carbon Dioxide Level 18mmol/L (21-32) 25mmol/L (21-32) Anion Gap 18 (6-14) 14 (6-14) Blood Urea Nitrogen 55mg/dL (7-20) 42mg/dL (7-20) Creatinine 6.0mg/dL (0.6-1.0) 4.3mg/dL (0.6-1.0) Estimated GFR (Cockcroft-Gault) 7.7 11.4 BUN/Creatinine Ratio 9 (6-20) Glucose Level 116mg/dL (70-99) 102mg/dL (70-99) Calcium Level 8.3mg/dL (8.5-10.1) 8.7mg/dL (8.5-10.1) Phosphorus Level 8.2mg/dL (2.6-4.7) 6.8mg/dL (2.6-4.7) Magnesium Level 2.3mg/dL (1.8-2.4) 2.1mg/dL (1.8-2.4) Total Bilirubin 1.0mg/dL (0.2-1.0) Aspartate Amino Transf (AST/SGOT) 18U/L (15-37) Alanine Aminotransferase (ALT/SGPT) 12U/L (14-59) Alkaline Phosphatase 126U/L (46-116) Total Protein 6.6g/dL (6.4-8.2) Albumin 3.0g/dL (3.4-5.0) 3.3g/dL (3.4-5.0) Albumin/Globulin Ratio 0.8 (1.0-1.7) Prothrombin Time 13.9SEC (11.7-14.0) Prothromb Time International Ratio 1.1 (0.8-1.1) Body Fluid Total Protein 3.3g/dL (.) Body Fluid Lactate Dehydrogenase 105IU/L (.) Laboratory Tests Test 11/29/16 14:10 11/30/16 06:40 Body Fluid Total Protein 3.3g/dL (.) Body Fluid Lactate Dehydrogenase 105IU/L (.) Sodium Level 136mmol/L (136-145) Potassium Level 4.8mmol/L (3.5-5.1) Chloride Level 97mmol/L (98-107) Carbon Dioxide Level 25mmol/L (21-32) Anion Gap 14 (6-14) Blood Urea Nitrogen 42mg/dL (7-20) Creatinine 4.3mg/dL (0.6-1.0) Estimated GFR (Cockcroft-Gault) 11.4 Glucose Level 102mg/dL (70-99) Calcium Level 8.7mg/dL (8.5-10.1) Phosphorus Level 6.8mg/dL (2.6-4.7) Magnesium Level 2.1mg/dL (1.8-2.4) Albumin 3.3g/dL (3.4-5.0) Medications Active Scripts Medications Dose Route/Sig Days Date Category Levaquin (Levofloxacin) 500 Mg Tablet 500 Mg PO Q48H 09/30/16 Rx Lisinopril 10 Mg Tablet 10 Mg PO DAILY 30 07/06/16 Rx Hydrocodone-Apap 7.5-325 (Hydrocodone Bit/Acetaminophen) 1 Each Tablet 1 Tab PO PRN Q4HRS PRN 14 07/06/16 Rx Flector (Diclofenac Epolamine) 1 Each Patch.td12 1 Patch TD BID 30 07/06/16 Rx Aranesp Syringe (Darbepoetin Apolinar In Polysorbat) 60 Mcg/0.3 Ml Disp.syrin 60 Mcg SQ WEEKLYHS 30 07/06/16 Rx Furosemide 80 Mg Tablet 80 Mg PO TID 30 07/06/16 Rx Lorazepam 1 Mg Tablet 1 Mg PO PRN Q6HRS PRN 07/02/16 Reported Renvela (Sevelamer Carbonate) 800 Mg Tablet 2 Tab PO TID 07/02/16 Reported Loperamide (Loperamide Hcl) 2 Mg Capsule 2 Mg PO PRN Q15MIN PRN 30 06/09/16 Rx Isosorbide Mononitrate Er (Isosorbide Mononitrate) 30 Mg Tab.er.24h 30 Mg PO DAILY 30 06/09/16 Rx Maren-Bid Caplet (Acidoph/L.bulg/Bif.b/S.thermop) 1 Each Tablet 1 Tab PO TIDWMEALS 06/09/16 Rx Lidocaine-Prilocaine Cream (Lidocaine/Prilocaine) 30 Gm Cream..g. 1 Oniel TP UD 06/04/16 Reported Dicyclomine Hcl 20 Mg Tablet 1 Tab PO TID PRN 06/04/16 Reported Clonidine Hcl 0.3 Mg Tablet 0.3 Mg PO TID 06/04/16 Reported Amlodipine Besylate 10 Mg Tablet 10 Mg PO HS 06/04/16 Reported Renal Caps Softgel (Folic Acid/Vitamin B Comp W-C) 1 Mg Capsule 1 Cap PO DAILY 01/16/16 Reported Advair 250-50 Diskus (Fluticasone/Salmeterol) 1 Each Disk.w.dev 2 Puff IH DAILY 01/16/16 Reported Proair Hfa Inhaler (Albuterol Sulfate) 8.5 Gm Hfa.aer.ad 2 Puff INH PRN Q6HRS PRN 01/16/16 Reported Acyclovir 200 Mg Capsule 200 Mg PO BID 01/16/16 Reported Paroxetine Hcl 20 Mg Tablet 20 Mg PO QHS 05/09/15 Reported Nighttime Sleep Aid (Diphenhydramine Hcl) 50 Mg Capsule 50 Mg PO QHS 05/09/15 Reported Ondansetron Hcl 8 Mg Tablet 8 Mg PO BID PRN 05/09/14 Reported Methocarbamol 750 Mg Tablet 1,500 Mg PO QID PRN 05/09/14 Reported Tylenol Extra Strength (Acetaminophen) 500 Mg Tablet 500 Mg PO Q6HRS PRN 05/09/14 Reported Claritin (Loratadine) 10 Mg Capsule 10 Mg PO HS 05/09/14 Reported Impression . 1. Dyspnea secondary to acute on chronic congestive heart failure, most likely related to mitral regurgitation, which is moderate on previous echo and severe CMP (EF25%). High blood pressure also contributed to the patient's diastolic heart failure. 2. Abnormal ct chest with moderate left effusion and small right. 3. No significant history of tobacco use. 4. Chronic respiratory failure, on home oxygen. 5. History of multiple myeloma, currently on chemo. 6. End-stage renal disease, on hemodialysis. Plan . 1. Continue present oxygen. 2. Hemodialysis with increased ultrafiltration. 3. Continue with bronchodilators. 4. Wean oxygen, keeping sats 92 and above. 5. We will follow chest x-ray in few days after dialysis. 6. Steroid taper. 7. Follow Oncology recommendations. 8. s/p left thoracentesis, follow results LAURA GOMEZ MD Nov 30, 2016 11:15
--- NOTE | 2016-11-30 12:46 | PDOC ---
CARDIO Progress Notes Date and Time Date of Service 11/30/2016 Time of Evaluation 1240 Subjective Subjective: No Chest Pain, No Palpitations, No Dizziness, Other (SOA much better today, but still feels weak) Vitals Vitals Vital Signs Date Time Temp Pulse Resp B/P Pulse Ox O2 Delivery O2 Flow Rate FiO2 11/30/16 12:40 16 98 Nasal Cannula 4.0 11/30/16 11:00 98.1 90 142/85 98.1 Weight Weight [ ] Input and Output Intake and Output Intake and Output 11/30/16 07:00 Intake Total 410 ml Output Total 1300 ml Balance -890 ml Intake Oral 410 ml Output Urine Total 300 ml Other 1000 ml Laboratory Labs Laboratory Tests Test 11/29/16 14:10 11/30/16 06:40 Body Fluid Total Protein 3.3g/dL (.) Body Fluid Lactate Dehydrogenase 105IU/L (.) Sodium Level 136mmol/L (136-145) Potassium Level 4.8mmol/L (3.5-5.1) Chloride Level 97mmol/L (98-107) Carbon Dioxide Level 25mmol/L (21-32) Anion Gap 14 (6-14) Blood Urea Nitrogen 42mg/dL (7-20) Creatinine 4.3mg/dL (0.6-1.0) Estimated GFR (Cockcroft-Gault) 11.4 Glucose Level 102mg/dL (70-99) Calcium Level 8.7mg/dL (8.5-10.1) Phosphorus Level 6.8mg/dL (2.6-4.7) Magnesium Level 2.1mg/dL (1.8-2.4) Albumin 3.3g/dL (3.4-5.0) Microbiology Micro Microbiology 11/29/16 Gram Stain - Final, Complete Physical Exam HEENT: Neck Supple W Full Motion Chest: Symmetric LUNGS: Other (bibasilar crackles) Heart: S1S2, RRR, murmurs (3/6 systolic murmur to LLS border; S3) Abdomen: Soft N/T Extremities: Other (2+ bilateral LE pitting edema) Neurology: alert, oriented, follow commands Assessment Assessment 1. Acute on chronic mixed diastolic/systolic CHF: significant symptoms improvement post thoracentesis and HD 2. Accelerated HTN: labile 3. New Cardiomyopathy with global hypokinesis of the left ventricle with inferior wall akinesis. CP free. 4. Palpitations: x1 episode of SVT but note further 5. Valvular insufficiency: mild MR/TR 6. Multiple myeloma with velcade use 7. Prolonged QT, velcade also a contributor 8. Chronic back pain Recommendation 1. Fluid off loading per HD 2. 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 MPI tomorrow. 3. Increase coreg and hydralazine and continue with optimization 4. Titrate off catapres gradually 5. Will consider for lifevest referral, pending MPI results. 6. Obtain lipid panel, and will start on statin pending levels. 7. ECASA 81 mg 8. Avoid QT prolonging medications 9. Currently tele is not placed. Transfer to [facility] for closer monitoring. CIHNO MOLINA APRN Nov 30, 2016 12:46
[2016-11-30] MEDS: hydrALAZINE 20 MG/ML VIAL. IVP PRN (14:19)
[2016-11-30] MEDS: HYDRALAZINE 50 MG TABLET PO SCH ×2 (15:30→20:35)
[2016-11-30 15:31] VITALS: BP 149/88
[2016-11-30 16:02] LABS: CHOLESTEROL/HDL RATIO 2.8
--- NOTE | 2016-11-30 17:24 | PATHOLOGY ---
CYTOPATHOLOGY REPORT CLINICAL HISTORY: Left pleural effusion. SPECIMEN(S) RECEIVED: A.Pleural fluid. Left FINAL DIAGNOSIS: Left pleural fluid, ThinPrep and cell block: No malignant cells identified. - Focally reactive mesothelial cells and inflammatory cells identified. (JPM:csd; d/t: 11/30/2016) PATHOLOGIST: Zhou Kevin M.D. REPORT ELECTRONICALLY SIGNED BY: Zhou Kevin M.D. DATE/TIME: 11/30/2016 17:23 GROSS PATHOLOGY: A. Pleural fluid. Left: The specimen is submitted unfixed, labeled "Solange Jameson". Received by the Cytology Department is 30 mL of clear yellow fluid. One ThinPrep slide and a cell block were prepared. (clt 11.29.2016) MANAGER LATIN(S): DIONTE Oliva(ASCP) INITIAL CPT CODE(S): A; 95267, 94929 Professional services performed by [facility] [address] Technical services performed by [facility] at [address] [place] [address], [address], [place] [address]. PATIENT: SOLANGE JAMESON /AGE: 5 1975 (Age: 41) SEX: F PATIENT #: [id number] ALT CASE #: SPECIMEN COLLECTION DATE: 11/29/2016 SPECIMEN RECEIVED DATE: 11/29/[address] [facility] [address] [place] [address], [address] [place] [address] PHONE: [phone] DIRECTOR: Trey Ornelas M.D. * * * END OF REPORT * * *
--- NOTE | 2016-11-30 17:46 | PDOC ---
SUBJECTIVE ROS ESRD Doign OK overall, Breathing easier after Th Centesis CVS: no Orthopnea, no CP RESP: min SOB, occ [place] GI: no Nausea, no Vomiting : no Dysuria, no Urgency OBJECTIVE Vital Signs Vital Signs Date Time Temp Pulse Resp B/P Pulse Ox O2 Delivery O2 Flow Rate FiO2 11/30/16 16:05 Nasal Cannula 2.0 11/30/16 15:35 18 11/30/16 15:31 97.8 100 149/88 98 97.8 I & 0 Intake and Output 11/30/16 07:00 Intake Total 410 ml Output Total 1300 ml Balance -890 ml Intake Oral 410 ml Output Urine Total 300 ml Other 1000 ml PHYSICAL EXAM Physical Exam General Appearance: Awake Alert Oriented x 3 In no resp Distress Eyes: VIsion Unchanged Conjunctiva Normal EN: No EN Drainage Mucous Memb. moist Neck: no JVD min JVP Supple no Thyromegaly CVS: S1 S2 soft Murmur No Gallop No Rub + Edema Resp: Gigi basla Rales no Rhonchi no Acc. Muscle use GI: BAS +ve NO Bruit Non Tender Non Distended : no CVA tenderness; no Suprapubic Tenderness DIAGNOSIS/ASSESSMENT Assessment & Plan ESRD: Current FLuid and E-lyte status does not necessitate emergent need for Dialysis. Will re-evaluate for Dialysis in am and continue on MWF schedule. Anemia: reval after fluid status optimization; ? needs Epogen if hgb < 10 after Uf. Transfuse with next HD as needed. HTN: reval after fluid status optimiztiaon. Current BP meds reviewed. See orders for changes. ABI: Bone & Mineral: Follow Phos and alter bidner regimen - improving with current regiemn, OP Compliance with same is debateable Skin changes / Hardening - Skin Bx to r/o Calciphylaxis Discussed Plan of Care and prognosis etc. at length with family. Problems: COMMENT/RELEVANT DATA Meds Current Medications Medications (Trade) Dose Ordered Sig/Jamila Start Time Stop Time Status Last Admin Dose Admin Acetaminophen (Tylenol) 500 mg PRN Q6HRS PRN 11/28/16 07:15 11/30/16 06:13 500 MG Acetaminophen/ Hydrocodone Bitart (Lortab 7.5/325) 1 tab PRN Q4HRS PRN 11/28/16 07:15 11/30/16 04:10 1 TAB Acyclovir (Zovirax) 200 mg BID 11/28/16 09:00 11/30/16 09:30 200 MG Albuterol Sulfate (Ventolin Neb Soln) 2.5 mg PRN Q4HRS PRN 11/28/16 05:15 11/30/16 04:06 2.5 MG Albuterol/ Ipratropium (Duoneb) 3 ml RTQID 11/28/16 08:00 11/29/16 07:59 DC 11/29/16 06:06 3 ML Amlodipine Besylate (Norvasc) 10 mg HS 11/28/16 21:00 11/29/16 21:11 10 MG Aspirin (Ecotrin) 81 mg [id number] 11/30/16 16:00 Budesonide 0.5 mg 0.5 mg RTBID 11/28/16 08:00 11/30/16 07:47 0.5 MG Bupivacaine HCl/ Epinephrine Bitart (Sensorcain-Mpf Epi 0.5%-1:[id number]) 30 ml STK-MED ONCE 11/29/16 13:57 11/29/16 13:58 DC 11/29/16 16:47 9 ML Carvedilol (Coreg) 25 mg BIDWMEALS 11/30/16 17:00 Cetirizine HCl (Zyrtec) 10 mg QHS 11/28/16 21:00 11/29/16 21:09 10 MG Clonidine HCl (Catapres) 0.3 mg TID 11/28/16 09:00 11/29/16 14:02 DC 11/28/16 20:54 0.3 MG Clonidine HCl 1 patch 1 patch WEEKLY 11/29/16 14:30 11/29/16 18:05 1 PATCH Darbepoetin Apolinar (Aranesp) 60 mcg Tu 11/28/16 21:00 11/28/16 20:53 60 MCG Diclofenac Epolamine (Flector) 1 patch BID 11/28/16 09:00 11/28/16 14:38 DC Dicyclomine HCl (Bentyl) 20 mg PRN TID PRN 11/28/16 07:45 11/28/16 09:02 20 MG Diphenhydramine HCl (Benadryl) 25 mg 1X PRN PRN 11/29/16 09:00 11/30/16 08:59 DC Fentanyl Citrate (Fentanyl 2ml Vial) 100 mcg STK-MED ONCE 11/29/16 14:14 11/29/16 14:15 DC Fentanyl Citrate 50 mcg 50 mcg PRN Q5MIN PRN 11/29/16 09:30 11/30/16 03:58 DC 11/29/16 17:38 50 MCG Folic Acid/ Multivitamins/Vit B12 (Nephro-Sheree) 1 tab DAILY 11/28/16 09:00 11/30/16 09:29 1 TAB Furosemide (Lasix) 80 mg TID@,,11/28/16 09:00 11/30/16 14:10 80 MG Hydralazine HCl (Apresoline) 50 mg TID 11/30/16 15:30 Hydralazine HCl 25 mg 25 mg TID 11/28/16 21:00 11/30/16 15:13 DC 11/30/16 14:14 25 MG Info (PHARMACY MONITORING -- do not chart) 1 each PRN DAILY PRN 11/29/16 09:00 UNV Isosorbide Mononitrate (Imdur) 30 mg DAILY 11/28/16 09:00 11/30/16 09:30 30 MG Lactated Ringer's (Iv Lactated Ringers) 1,000 ml @ 0 mls/hr Q0M 11/29/16 09:16 11/29/16 21:15 DC Lactobacillus Acidophilus (Bacid, Maren-Bid) 1 tab TIDWMEALS 11/28/16 08:00 11/30/16 14:10 1 TAB Lidocaine HCl 2 ml 1X PRN PRN 11/29/16 09:30 11/30/16 03:58 DC Lidocaine/ Prilocaine (Emla) 1 nirav PRN QID PRN 11/28/16 07:15 Lidocaine/Sodium Bicarbonate (Buffered Lidocaine 1%) 3 ml 1X ONCE 11/29/16 12:45 11/29/16 12:46 DC 11/29/16 14:32 6 ML Lisinopril (Prinivil) 10 mg DAILY 11/28/16 09:00 11/30/16 09:30 10 MG Loperamide HCl (Imodium) 2 mg PRN Q15MIN PRN 11/28/16 07:15 Lorazepam (Ativan) 1 mg PRN Q6HRS PRN 11/28/16 07:15 Magnesium Sulfate/ Dextrose (Magnesium Sulfate PREMIX 2GM) 50 ml @ 25 mls/hr PRN DAILY PRN 11/28/16 10:45 Methocarbamol (Robaxin) 1,500 mg PRN QID PRN 11/28/16 07:15 11/30/16 04:10 1,500 MG Methylprednisolone Sodium Succinate (Solu-Medrol 40mg Vial) 60 mg Q6HRS 11/28/16 00:00 11/30/16 14:17 60 MG Methylprednisolone Sodium Succinate (Solu-Medrol 125mg Vial) 125 mg 1X ONCE 11/27/16 19:30 11/27/16 19:31 DC 11/27/16 19:49 125 MG Midazolam HCl (Versed) 2 mg STK-MED ONCE 11/29/16 16:44 11/29/16 16:45 DC Non-Formulary Medication 8 mg PRN BID PRN 11/28/16 07:15 11/30/16 10:18 DC Ondansetron HCl (Zofran Odt) 8 mg PRN BID PRN 11/30/16 10:30 Ondansetron HCl (Zofran) 8 mg PRN Q6HRS PRN 11/29/16 14:45 11/30/16 15:34 8 MG Pantoprazole Sodium (Protonix) 40 mg DAILYAC 11/30/16 09:30 11/30/16 09:29 40 MG Paroxetine HCl (Paxil) 20 mg QHS 11/28/16 21:00 11/29/16 21:09 20 MG Prochlorperazine Edisylate (Compazine) 5 mg PACU PRN PRN 11/29/16 09:30 11/30/16 03:58 DC Propofol (Diprivan) 20 ml @ As Directed STK-MED ONCE 11/29/16 14:14 11/29/16 14:15 DC Sevelamer Carbonate (Renvela) 800 mg TIDWMEALS 11/28/16 08:00 11/30/16 14:10 800 MG Sodium Chloride (Iv Sodium Chloride 0.9% 1000ml Bag) 1,000 ml @ 1,000 mls/hr Q1H PRN 11/29/16 08:51 11/29/16 14:50 DC Lab Laboratory Tests Test 11/30/16 06:40 Sodium Level 136mmol/L (136-145) Potassium Level 4.8mmol/L (3.5-5.1) Chloride Level 97mmol/L (98-107) Carbon Dioxide Level 25mmol/L (21-32) Anion Gap 14 (6-14) Blood Urea Nitrogen 42mg/dL (7-20) Creatinine 4.3mg/dL (0.6-1.0) Estimated GFR (Cockcroft-Gault) 11.4 Glucose Level 102mg/dL (70-99) Calcium Level 8.7mg/dL (8.5-10.1) Phosphorus Level 6.8mg/dL (2.6-4.7) Magnesium Level 2.1mg/dL (1.8-2.4) Albumin 3.3g/dL (3.4-5.0) Triglycerides Level 168mg/dL (0-150) Cholesterol Level 109mg/dL (0-200) LDL Cholesterol, Calculated 36mg/dL (0-100) VLDL Cholesterol, Calculated 34mg/dL (0-40) HDL Cholesterol 39mg/dL (40-60) Cholesterol/HDL Ratio 2.8 Thyroid Stimulating Hormone (TSH) 13.304uIU/mL (0.358-3.74) Other Left ventricle systolic function is severely impaired. The Ejection Fraction is 25-30%. There is global hypokinesis of the left ventricle with inferior wall akinesis. Septal motion consistent with conduction abnormality. Doppler and Color Flow revealed mild to moderate mitral regurgitation. Doppler and Color Flow revealed mild tricuspid regurgitation. The PA pressure was estimated at 37 mmHg. There are large bilateral effusions. MITRA TAVAREZ MD Nov 30, 2016 17:46
[2016-11-30] MEDS: ASPIRIN ENTERIC COATED 81 MG TABLET.DR. PO SCH (18:05)
--- NOTE | 2016-11-30 19:10 | CONS ---
DATE OF CONSULTATION: 11/29/2016 REFERRING PHYSICIANS: Dr. Mitra Denney, Dr. Lindsey Somers, Dr. dEwardo Kirk, Dr. Edin Haji, Dr. Camila Howard and Dr. Calvin Garcia Thank you for the consult. CHIEF COMPLAINT: Shortness of air. REASON FOR CONSULTATION: Right flank skin thickening. HISTORY OF PRESENT ILLNESS: This is a 41-year-old female with multiple medical problems including renal failure and hyperparathyroidism. She has been noting right flank skin thickening in which dialysis occasionally helps, but gradually worsening. She has multiple other medical issues going on as well. She is seen in our hospital room and appears to be reasonably stable, although somewhat uncomfortable. ALLERGIES: She has an allergy to sulfa, sucralose, codeine. MEDICATIONS: Reviewed. PAST MEDICAL HISTORY: Hypertension, asthma, pneumonia, reflux, hemorrhoids, ____ bowel disease, anemia, myeloma, anxiety, depression, osteoarthritis, fibromyalgia, chronic renal failure, hyperparathyroidism. PAST SURGICAL HISTORY: Includes cholecystectomy and tubal ligation. SOCIAL HISTORY: No current tobacco or alcohol use. FAMILY HISTORY: Noncontributory. REVIEW OF SYSTEMS: All systems reviewed and negative except for HPI. PHYSICAL EXAMINATION: GENERAL: Well-developed, mildly obese female with a somewhat cushingoid appearance. She is on oxygen. VITAL SIGNS: She is afebrile. She is noted to be hypertensive and mildly tachycardic at 110. HEENT: Normocephalic, anicteric sclerae. Oropharynx clear. NECK: Supple. CHEST: Bilateral chest excursion. ABDOMEN: Soft. SKIN: On her right flank, there is some bronzing of her skin with some thickening. EXTREMITIES: Muscular atrophy. LABORATORY DATA: CT scan of her chest demonstrates left-sided pleural effusion, cardiomegaly and generalized anasarca. She is scheduled to undergo paracentesis today as well. IMPRESSION AND RECOMMENDATIONS: This is a 41-year-old female with right flank skin thickening. Renal services will aspirate the skin by incisional skin biopsy to evaluate for possible calciphylaxis. We will plan on that later on today. The patient was informed of the risks, benefits, alternatives to procedure, risks including but not limited to bleeding, infection, damage to surrounding structures, risk of anesthesia, risk of wound complications. The patient appears to understand. Her insightful questions were answered and she agrees to proceed. Thank you for allowing my participation in the care of this pleasant patient. ROBERTO AGUIRRE MD DR: LIZETTE/dejuan JOB#: [id number] / [id number] CAMILA Tijerina MD, MITRA GARCIA, CALVIN SOMERS, LINDSEY KIRK, EDWARDO HAJI, EDIN MCCORD
[2016-11-30 19:50] VITALS: BP 129/87
[2016-11-30] MEDS: AMLODIPINE BESYLATE 10 MG TABLET PO SCH (20:35)
[2016-11-30] MEDS: CETIRIZINE HCL 10 MG TABLET PO SCH (20:35)
[2016-11-30] MEDS: PAROXETINE 20 MG TABLET. PO SCH (20:35)
[2016-11-30] MEDS: DIPHENHYDRAMINE HCL 25 MG CAPSULE PO SCH (20:36)
[2016-11-30 23:46] VITALS: BP 151/88
[2016-12-01 03:55] VITALS: BP 167/96
[2016-12-01] MEDS: FENTANYL PF 100 MCG/2 ML VIAL. IV PRN ×5 (04:37→23:11)
[2016-12-01] MEDS: ALBUTEROL SULFATE 2.5 MG/3 ML NEBU. NEB PRN (05:40)
[2016-12-01] MEDS: methylPREDNISolone SOD SUCC PF 40 MG/ML VIAL. IV SCH ×4 (06:00→23:11)
[2016-12-01 07:00] VITALS: BP 175/95
[2016-12-01 07:03] LABS: ALBUMIN 3.5 g/dL (3.4-5.0); CALCIUM 8.7 mg/dL (8.5-10.1); CREATININE 5.5 mg/dL (0.6-1.0); GFR 8.5; POTASSIUM 5.3 mmol/L (3.5-5.1)
[2016-12-01] MEDS: LACTOBACILLUS ACIDOPH & BULGAR 1 TABLET. PO SCH ×3 (08:00→17:00)
[2016-12-01] MEDS ORDERED: REGADENOSON 0.4 MG/5 ML DISP.SYRIN. IV ONE (08:15)
[2016-12-01] MEDS: ONDANSETRON PF 4 MG/2 ML VIAL. IV PRN ×2 (08:16→18:12)
[2016-12-01] MEDS: BUDESONIDE 0.5 MG/2 ML NEBU NEB SCH ×2 (08:33→20:50)
--- NOTE | 2016-12-01 08:51 | PDOC ---
SHASHANK RAMOS MOBILE APPLICATION ENGINEER 12/01/16 0851: SURGICAL PROGRESS NOTE Subjective waiting for stress today some pain to biopsy site Vital Signs Vital Signs Date Time Temp Pulse Resp B/P Pulse Ox O2 Delivery O2 Flow Rate FiO2 12/01/16 08:33 98 Nasal Cannula 3.5 12/01/16 07:00 97.7 94 22 175/95 97.7 I&O Intake and Output 12/01/16 07:00 Intake Total 1060 ml Output Total 350 ml Balance 710 ml Intake Oral 1060 ml Output Urine Total 350 ml # Bowel Movements 3 General: Alert, Oriented X3, Cooperative, No acute distress Abdomen: Soft, Other (right flank site c/d/i, no bleeding) Labs Laboratory Tests Test 11/29/16 10:00 11/29/16 14:10 11/30/16 06:40 12/01/16 06:00 Prothrombin Time 13.9SEC (11.7-14.0) Prothromb Time International Ratio 1.1 (0.8-1.1) Body Fluid Total Protein 3.3g/dL (.) Body Fluid Lactate Dehydrogenase 105IU/L (.) Sodium Level 136mmol/L (136-145) 137mmol/L (136-145) Potassium Level 4.8mmol/L (3.5-5.1) 5.3mmol/L (3.5-5.1) Chloride Level 97mmol/L (98-107) 96mmol/L (98-107) Carbon Dioxide Level 25mmol/L (21-32) 26mmol/L (21-32) Anion Gap 14 (6-14) 15 (6-14) Blood Urea Nitrogen 42mg/dL (7-20) 70mg/dL (7-20) Creatinine 4.3mg/dL (0.6-1.0) 5.5mg/dL (0.6-1.0) Estimated GFR (Cockcroft-Gault) 11.4 8.5 Glucose Level 102mg/dL (70-99) 101mg/dL (70-99) Calcium Level 8.7mg/dL (8.5-10.1) 8.7mg/dL (8.5-10.1) Phosphorus Level 6.8mg/dL (2.6-4.7) 8.0mg/dL (2.6-4.7) Magnesium Level 2.1mg/dL (1.8-2.4) 2.1mg/dL (1.8-2.4) Albumin 3.3g/dL (3.4-5.0) 3.5g/dL (3.4-5.0) Triglycerides Level 168mg/dL (0-150) Cholesterol Level 109mg/dL (0-200) LDL Cholesterol, Calculated 36mg/dL (0-100) VLDL Cholesterol, Calculated 34mg/dL (0-40) HDL Cholesterol 39mg/dL (40-60) Cholesterol/HDL Ratio 2.8 Thyroid Stimulating Hormone (TSH) 13.304uIU/mL (0.358-3.74) Laboratory Tests Test 12/01/16 06:00 Sodium Level 137mmol/L (136-145) Potassium Level 5.3mmol/L (3.5-5.1) Chloride Level 96mmol/L (98-107) Carbon Dioxide Level 26mmol/L (21-32) Anion Gap 15 (6-14) Blood Urea Nitrogen 70mg/dL (7-20) Creatinine 5.5mg/dL (0.6-1.0) Estimated GFR (Cockcroft-Gault) 8.5 Glucose Level 101mg/dL (70-99) Calcium Level 8.7mg/dL (8.5-10.1) Phosphorus Level 8.0mg/dL (2.6-4.7) Magnesium Level 2.1mg/dL (1.8-2.4) Albumin 3.5g/dL (3.4-5.0) Problem List Problems Medical Problems: (1) Accelerated hypertension Status: Acute (2) Bilateral pleural effusion Status: Acute (3) Cardiomyopathy Status: Acute (4) COPD with acute exacerbation Status: Acute (5) End stage renal disease Status: Acute Assessment/Plan biopsy site stable, no bleeding path pending available as needed Problems: ROBERTO AGUIRRE MD 12/01/16 0907: SURGICAL PROGRESS NOTE Assessment/Plan incision c/d/i will sign off, but please call for questions Problems: SHASHANK RAMOS APRN Dec 01, 2016 08:51 ROBERTO AGUIRRE MD Dec 01, 2016 09:07
[2016-12-01] MEDS: ACYCLOVIR 200 MG CAPSULE PO SCH ×2 (09:00→21:21)
[2016-12-01] MEDS: LISINOPRIL 10 MG TABLET PO SCH (09:00)
[2016-12-01] MEDS: FOLIC/VIT B COMP W-C (RENAL) TABLET. PO SCH (09:00)
[2016-12-01] MEDS: FUROSEMIDE 80 MG TABLET PO SCH ×3 (10:47→18:10)
[2016-12-01] MEDS: HYDRALAZINE 50 MG TABLET PO SCH ×3 (10:47→21:21)
[2016-12-01] MEDS: PANTOPRAZOLE 40 MG TABLET. PO SCH (10:47)
[2016-12-01] MEDS: SEVELAMER CARBONATE 800 MG TABLET. PO SCH ×3 (10:48→18:09)
[2016-12-01] MEDS: CARVEDILOL 12.5 MG TABLET PO SCH ×2 (10:48→18:11)
--- NOTE | 2016-12-01 10:58 | RAD ---
APPROVED REPORT Test Type: Pharmacological Stress Nurse/Tech: marissa matthew Test Indications: cardiomyopathy Cardiac History: HTN, CARDIOMYOPATHY, SEE EHR Medications: SEE EHR Medical History: CRF-DIALYSIS, SEE EHR Resting ECG: SR Resting Heart Rate: 88 bpm Resting Blood Pressure: 156/85mmHg Pretest Chest Pain: No chest pain Nurse/Tech Notes LUNG SOUNDS DIMINISHED, NON PRODUCTIVE COUGH. Consent: The procedure was explained to the patient in lay terms. Informed consent was witnessed. Darrion eout was entered into [employer]. History and Stress Test performed by RT Tamara (R) (N) Pharm. Details Pharmacologic stress testing was performed using 0.4mg per 5ml of regadenoson given intravenously ove r 7-10 seconds. Stress Symptoms HEADACHE, NAUSEA, FACIAL FLUSHING. POST EXERCISE Reason for Termination: Infusion complete Max HR: 141 bpm Max Blood Pressure: 163/89mmHg Chest Pain: No. Arrhythmia: No. ST Change: No. INTERPRETATION Stress EKG Conclusion: Baseline EKG showed sinus rhythm. No ischemic changes at peak stress. No arr hythmias. Imaging Protocol IMAGE PROTOCOL: Rest Tc-99m/stress Tc-99m 1 day Rest: Stress: Viability: Radiopharm.Tc99m VfuvbmnrtEa81s Sestamibi [id number] 34mCi Duration 15min. 10min. Img Date 12/01/2016 12/01/2016 Rest Admin Site:IV - Right AntecubitalAdministrator:RT Tamara (R)(N) Stress Admin Site: IV - Right AntecubitalAdministrator: RT Geoff (R)(N) STRESS DATA End Diast. Vol.148.0mlAv. Heart Rate98.0bpm End Syst. Vol.68.0mlCO Index BSA7.9L/min Myocardial Bzei925.0gEject. Wkdzeywy89.0% Stress Rates Pk. Fill Rate3.56EDV/secLVtime Pk. Fill 132.61msec Pk. Empty Rate2.98ESV/secLVtime Pk. Jrrsu537.23msec 10/24 Pk. Fill1.52EDV/sec Stress Scores Regional WT2.00Summed WT24.00 Regional WM0.00Summed WM19.00 Study quality was good. Left Ventricular size was Normal at Rest and Stress. Lung uptake was Normal. Left Ventricular ejection fraction is 54%. The rest and stress images show normal perfusion, normal contraction and thickening. LV Perf. Quant 17 Seg. SSS1.00 17 Seg. SRS3.00 17 Seg. SDS0.00 Stress Defect Extent (% LAD)5.60Rest Defect Extent (% LAD)0.00Rev. Defect Extent (% LAD)5.60 Stress Defect Extent (% LCX) 5.00Rest Defect Extent (% LCX)10.00Rev. Defect Extent (% LCX)0.00 Stress Defect Extent (% RCA)3.30Rest Defect Extent (% RCA)0.00Rev. Defect Extent (% RCA)3.30 Stress Defect Extent (% LAUREN)6.10Rest Defect Extent (% LAUREN)2.40Rev. Defect Extent (% LAUREN)3.50 Conclusion 1. Regadenoson cardioisotope stress test did not show any evidence of ischemia or infarct. 2. Normal left ventricular systolic function with ejection fraction calculated at 54%. 3. Low risk for cardiac events.
[2016-12-01 11:00] VITALS: BP 170/94
--- NOTE | 2016-12-01 14:44 | PDOC ---
Dialysis Progress Note Dialysis Note Dialysis Note Seen on Hemodialysis, tolerating treatment Well Vitals on Hemodialysis: 157/86 88 afeb 97.2 General Appearance: Awake: Alert Oriented x 3 Neck: No JVD or JVP Chest: CTA Gigi Heart: S1 S2 Abdomen - Soft NTND Extremities - No Edema ESRD : Dialysis as below F 180 NR 3.0 Hrs 2 K 2.5 Ca 140 Na 35 HC03 Qb 350 + Qd 500+ Heparin 0 Units Uf 3-4 Kgs or to dry weight as tolerated May give 25-50 gms of 25% Albumin if needed to maintain Hemodynamic stability Treatment plan reviewed and discussed with shift supervisor melting Vitals Vital Signs Vital Signs Date Time Temp Pulse Resp B/P Pulse Ox O2 Delivery O2 Flow Rate FiO2 12/01/16 13:31 5 Nasal Cannula 12/01/16 11:00 97.7 95 170/94 100 4.0 97.7 Labs Last Labs Laboratory Tests Test 11/30/16 06:40 12/01/16 06:00 Sodium Level 136mmol/L (136-145) 137mmol/L (136-145) Potassium Level 4.8mmol/L (3.5-5.1) 5.3mmol/L (3.5-5.1) Chloride Level 97mmol/L (98-107) 96mmol/L (98-107) Carbon Dioxide Level 25mmol/L (21-32) 26mmol/L (21-32) Anion Gap 14 (6-14) 15 (6-14) Blood Urea Nitrogen 42mg/dL (7-20) 70mg/dL (7-20) Creatinine 4.3mg/dL (0.6-1.0) 5.5mg/dL (0.6-1.0) Estimated GFR (Cockcroft-Gault) 11.4 8.5 Glucose Level 102mg/dL (70-99) 101mg/dL (70-99) Calcium Level 8.7mg/dL (8.5-10.1) 8.7mg/dL (8.5-10.1) Phosphorus Level 6.8mg/dL (2.6-4.7) 8.0mg/dL (2.6-4.7) Magnesium Level 2.1mg/dL (1.8-2.4) 2.1mg/dL (1.8-2.4) Albumin 3.3g/dL (3.4-5.0) 3.5g/dL (3.4-5.0) Triglycerides Level 168mg/dL (0-150) Cholesterol Level 109mg/dL (0-200) LDL Cholesterol, Calculated 36mg/dL (0-100) VLDL Cholesterol, Calculated 34mg/dL (0-40) HDL Cholesterol 39mg/dL (40-60) Cholesterol/HDL Ratio 2.8 Thyroid Stimulating Hormone (TSH) 13.304uIU/mL (0.358-3.74) Laboratory Tests Test 12/01/16 06:00 Sodium Level 137mmol/L (136-145) Potassium Level 5.3mmol/L (3.5-5.1) Chloride Level 96mmol/L (98-107) Carbon Dioxide Level 26mmol/L (21-32) Anion Gap 15 (6-14) Blood Urea Nitrogen 70mg/dL (7-20) Creatinine 5.5mg/dL (0.6-1.0) Estimated GFR (Cockcroft-Gault) 8.5 Glucose Level 101mg/dL (70-99) Calcium Level 8.7mg/dL (8.5-10.1) Phosphorus Level 8.0mg/dL (2.6-4.7) Magnesium Level 2.1mg/dL (1.8-2.4) Albumin 3.5g/dL (3.4-5.0) Assessment Assessment Problems Medical Problems: (1) Accelerated hypertension Status: Acute (2) Bilateral pleural effusion Status: Acute (3) Cardiomyopathy Status: Acute (4) COPD with acute exacerbation Status: Acute (5) End stage renal disease Status: Acute Problems: Plan Plan of Care Problems Medical Problems: (1) Accelerated hypertension Status: Acute (2) Bilateral pleural effusion Status: Acute (3) COPD with acute exacerbation Status: Acute (4) End stage renal disease Status: Acute MITRA TAVAREZ MD Dec 01, 2016 14:44
[2016-12-01] MEDS ORDERED: IV NORMAL SALINE 1000ML BAG 1,000 ML IV PRN ×2 (15:26)
[2016-12-01] MEDS ORDERED: DIALYSIS PATIENT. MC PRN ×2 (15:30)
--- NOTE | 2016-12-01 15:50 | PDOC ---
PULMONARY PROGRESS NOTES Subjective no soa Vitals Vital Signs Date Time Temp Pulse Resp B/P Pulse Ox O2 Delivery O2 Flow Rate FiO2 12/01/16 13:31 5 Nasal Cannula 12/01/16 11:00 97.7 95 170/94 100 4.0 97.7 General: Alert, No acute distress Lungs: Other (decrease bs bases) Cardiovascular: S1, S2 Abdomen: Soft Neuro Exam: Alert Extremities: No Edema Skin: Warm Labs Laboratory Tests Test 11/30/16 06:40 12/01/16 06:00 Sodium Level 136mmol/L (136-145) 137mmol/L (136-145) Potassium Level 4.8mmol/L (3.5-5.1) 5.3mmol/L (3.5-5.1) Chloride Level 97mmol/L (98-107) 96mmol/L (98-107) Carbon Dioxide Level 25mmol/L (21-32) 26mmol/L (21-32) Anion Gap 14 (6-14) 15 (6-14) Blood Urea Nitrogen 42mg/dL (7-20) 70mg/dL (7-20) Creatinine 4.3mg/dL (0.6-1.0) 5.5mg/dL (0.6-1.0) Estimated GFR (Cockcroft-Gault) 11.4 8.5 Glucose Level 102mg/dL (70-99) 101mg/dL (70-99) Calcium Level 8.7mg/dL (8.5-10.1) 8.7mg/dL (8.5-10.1) Phosphorus Level 6.8mg/dL (2.6-4.7) 8.0mg/dL (2.6-4.7) Magnesium Level 2.1mg/dL (1.8-2.4) 2.1mg/dL (1.8-2.4) Albumin 3.3g/dL (3.4-5.0) 3.5g/dL (3.4-5.0) Triglycerides Level 168mg/dL (0-150) Cholesterol Level 109mg/dL (0-200) LDL Cholesterol, Calculated 36mg/dL (0-100) VLDL Cholesterol, Calculated 34mg/dL (0-40) HDL Cholesterol 39mg/dL (40-60) Cholesterol/HDL Ratio 2.8 Thyroid Stimulating Hormone (TSH) 13.304uIU/mL (0.358-3.74) Laboratory Tests Test 12/01/16 06:00 Sodium Level 137mmol/L (136-145) Potassium Level 5.3mmol/L (3.5-5.1) Chloride Level 96mmol/L (98-107) Carbon Dioxide Level 26mmol/L (21-32) Anion Gap 15 (6-14) Blood Urea Nitrogen 70mg/dL (7-20) Creatinine 5.5mg/dL (0.6-1.0) Estimated GFR (Cockcroft-Gault) 8.5 Glucose Level 101mg/dL (70-99) Calcium Level 8.7mg/dL (8.5-10.1) Phosphorus Level 8.0mg/dL (2.6-4.7) Magnesium Level 2.1mg/dL (1.8-2.4) Albumin 3.5g/dL (3.4-5.0) Medications Active Scripts Medications Dose Route/Sig Days Date Category Levaquin (Levofloxacin) 500 Mg Tablet 500 Mg PO Q48H 09/30/16 Rx Lisinopril 10 Mg Tablet 10 Mg PO DAILY 30 07/06/16 Rx Hydrocodone-Apap 7.5-325 (Hydrocodone Bit/Acetaminophen) 1 Each Tablet 1 Tab PO PRN Q4HRS PRN 14 07/06/16 Rx Flector (Diclofenac Epolamine) 1 Each Patch.td12 1 Patch TD BID 30 07/06/16 Rx Aranesp Syringe (Darbepoetin Apolinar In Polysorbat) 60 Mcg/0.3 Ml Disp.syrin 60 Mcg SQ WEEKLYHS 30 07/06/16 Rx Furosemide 80 Mg Tablet 80 Mg PO TID 30 07/06/16 Rx Lorazepam 1 Mg Tablet 1 Mg PO PRN Q6HRS PRN 07/02/16 Reported Renvela (Sevelamer Carbonate) 800 Mg Tablet 2 Tab PO TID 07/02/16 Reported Loperamide (Loperamide Hcl) 2 Mg Capsule 2 Mg PO PRN Q15MIN PRN 30 06/09/16 Rx Isosorbide Mononitrate Er (Isosorbide Mononitrate) 30 Mg Tab.er.24h 30 Mg PO DAILY 30 06/09/16 Rx Maren-Bid Caplet (Acidoph/L.bulg/Bif.b/S.thermop) 1 Each Tablet 1 Tab PO TIDWMEALS 30 06/09/16 Rx Lidocaine-Prilocaine Cream (Lidocaine/Prilocaine) 30 Gm Cream..g. 1 Oniel TP UD 06/04/16 Reported Dicyclomine Hcl 20 Mg Tablet 1 Tab PO TID PRN 06/04/16 Reported Clonidine Hcl 0.3 Mg Tablet 0.3 Mg PO TID 06/04/16 Reported Amlodipine Besylate 10 Mg Tablet 10 Mg PO HS 06/04/16 Reported Renal Caps Softgel (Folic Acid/Vitamin B Comp W-C) 1 Mg Capsule 1 Cap PO DAILY 01/16/16 Reported Advair 250-50 Diskus (Fluticasone/Salmeterol) 1 Each Disk.w.dev 2 Puff IH DAILY 01/16/16 Reported Proair Hfa Inhaler (Albuterol Sulfate) 8.5 Gm Hfa.aer.ad 2 Puff INH PRN Q6HRS PRN 01/16/16 Reported Acyclovir 200 Mg Capsule 200 Mg PO BID 01/16/16 Reported Paroxetine Hcl 20 Mg Tablet 20 Mg PO QHS 05/09/15 Reported Nighttime Sleep Aid (Diphenhydramine Hcl) 50 Mg Capsule 50 Mg PO QHS 05/09/15 Reported Ondansetron Hcl 8 Mg Tablet 8 Mg PO BID PRN 05/09/14 Reported Methocarbamol 750 Mg Tablet 1,500 Mg PO QID PRN 05/09/14 Reported Tylenol Extra Strength (Acetaminophen) 500 Mg Tablet 500 Mg PO Q6HRS PRN 05/09/14 Reported Claritin (Loratadine) 10 Mg Capsule 10 Mg PO HS 05/09/14 Reported Impression . 1. Dyspnea secondary to acute on chronic congestive heart failure, most likely related to mitral regurgitation, which is moderate on previous echo and severe CMP (EF25%). High blood pressure also contributed to the patient's diastolic heart failure. 2. Abnormal ct chest with moderate left effusion and small right. 3. No significant history of tobacco use. 4. Chronic respiratory failure, on home oxygen. 5. History of multiple myeloma, currently on chemo. 6. End-stage renal disease, on hemodialysis. Plan . 1. Continue present oxygen. 2. Hemodialysis with increased ultrafiltration. 3. Continue with bronchodilators. 4. Wean oxygen, keeping sats 92 and above. 5. We will follow chest x-ray in few days after dialysis. 6. Steroid taper. 7. Follow Oncology recommendations. 8. s/p left thoracentesis, follow results LAURA GOMEZ MD Dec 01, 2016 15:50
--- NOTE | 2016-12-01 16:20 | PDOC ---
CHINO MOLINA COOK NIGHT 12/01/16 1620: CARDIO Progress Notes Date and Time Date of Service 12/01/2016 Time of Evaluation 1430 Subjective Subjective: No Chest Pain, No shortness of breath, No Palpitations, No Dizziness, Other (feels better today as I saw her in dialysis) Vitals Vitals Vital Signs Date Time Temp Pulse Resp B/P Pulse Ox O2 Delivery O2 Flow Rate FiO2 12/01/16 13:31 5 Nasal Cannula 12/01/16 11:00 97.7 95 170/94 100 4.0 97.7 Weight Weight [ ] Input and Output Intake and Output Intake and Output 12/01/16 07:00 Intake Total 1060 ml Output Total 350 ml Balance 710 ml Intake Oral 1060 ml Output Urine Total 350 ml # Bowel Movements 3 Laboratory Labs Laboratory Tests Test 12/01/16 06:00 Sodium Level 137mmol/L (136-145) Potassium Level 5.3mmol/L (3.5-5.1) Chloride Level 96mmol/L (98-107) Carbon Dioxide Level 26mmol/L (21-32) Anion Gap 15 (6-14) Blood Urea Nitrogen 70mg/dL (7-20) Creatinine 5.5mg/dL (0.6-1.0) Estimated GFR (Cockcroft-Gault) 8.5 Glucose Level 101mg/dL (70-99) Calcium Level 8.7mg/dL (8.5-10.1) Phosphorus Level 8.0mg/dL (2.6-4.7) Magnesium Level 2.1mg/dL (1.8-2.4) Albumin 3.5g/dL (3.4-5.0) Microbiology Micro Microbiology 11/29/16 Gram Stain - Final, Complete Physical Exam HEENT: Neck Supple W Full Motion Chest: Symmetric LUNGS: Other (bibasilar crackles) Heart: S1S2, RRR, murmurs (3/6 systolic murmur to LLS border; S3) Abdomen: Soft N/T Extremities: Other (2+ bilateral LE pitting edema) Neurology: alert, oriented, follow commands Assessment Assessment 1. Acute on chronic mixed diastolic/systolic CHF: S/P thoracentesis. clinically compensated 2. Accelerated HTN: labile episodes 3. NICM: MPI unremarkable for reversible defects. EF significant improvement at 54%. Suspect stress induced with multifactorial concurrent elements. 4. Valvular insufficiency: mild MR/TR, stable 5. Hypothyroidism: New, TSH 13 6. Multiple myeloma with velcade use 7. Prolonged QT, velcade also a contributor 8. Chronic back pain Recommendation 1. Fluid off loading per HD, currently in process 2. Continue to titrate up current regimen but would recommend gradually titrating off catapres. 3. If BP continues to be labile and HR is stable, changing coreg to labetolol would be an option. 4. HDL 39, otherwise excellent control on lipids, no statin for now with LDL at 39 5. Continue on ECASA 81 mg 6. QTc 519. Avoid QT prolonging medications 7. Close follow up as outpt. Follow up in office in 4 weeks. SKYLER ZIMMERMAN MD 12/01/16 0105: CARDIO Progress Notes Assessment Assessment Patient seen and examined. Agree with [employer]'s assessment and plan. MPI did not show any significant ischemia. Continue fluid removal with HD per nephrology team. CHINO MOLINA APRN Dec 01, 2016 16:20 SKYLER ZIMMERMAN MD Dec 01, 2016 18:51
--- NOTE | 2016-12-01 16:47 | PDOC ---
PROGRESS NOTES Subjective Subjective c/c - f/u of MM Objective Objective Vital Signs Date Time Temp Pulse Resp B/P Pulse Ox O2 Delivery O2 Flow Rate FiO2 12/01/16 13:31 5 Nasal Cannula 12/01/16 11:00 97.7 95 170/94 100 4.0 97.7 Intake and Output 12/01/16 07:00 Intake Total 1060 ml Output Total 350 ml Balance 710 ml Intake Oral 1060 ml Output Urine Total 350 ml # Bowel Movements 3 Physical Exam General: Alert, Oriented X3 Neuro: Normal speech Psych/Mental Status: Mental status NL Assessment Assessment Problems Medical Problems: (1) Accelerated hypertension Status: Acute (2) Bilateral pleural effusion Status: Acute (3) Cardiomyopathy Status: Acute (4) COPD with acute exacerbation Status: Acute (5) End stage renal disease Status: Acute 1. Multiple myeloma, currently on chemo with velcade and well controlled.. 2. Dyspnea secondary to acute on chronic congestive heart failure, I do not think it is related to velcade or MM. Appreciate cardiology management. . 3. End-stage renal disease, on hemodialysis. I d/w Dr Gunderson Comment Review of Relevant I have reviewed the following items ernesto (where applicable) has been applied. Labs Laboratory Tests Test 11/30/16 06:40 12/01/16 06:00 Sodium Level 136mmol/L (136-145) 137mmol/L (136-145) Potassium Level 4.8mmol/L (3.5-5.1) 5.3mmol/L (3.5-5.1) Chloride Level 97mmol/L (98-107) 96mmol/L (98-107) Carbon Dioxide Level 25mmol/L (21-32) 26mmol/L (21-32) Anion Gap 14 (6-14) 15 (6-14) Blood Urea Nitrogen 42mg/dL (7-20) 70mg/dL (7-20) Creatinine 4.3mg/dL (0.6-1.0) 5.5mg/dL (0.6-1.0) Estimated GFR (Cockcroft-Gault) 11.4 8.5 Glucose Level 102mg/dL (70-99) 101mg/dL (70-99) Calcium Level 8.7mg/dL (8.5-10.1) 8.7mg/dL (8.5-10.1) Phosphorus Level 6.8mg/dL (2.6-4.7) 8.0mg/dL (2.6-4.7) Magnesium Level 2.1mg/dL (1.8-2.4) 2.1mg/dL (1.8-2.4) Albumin 3.3g/dL (3.4-5.0) 3.5g/dL (3.4-5.0) Triglycerides Level 168mg/dL (0-150) Cholesterol Level 109mg/dL (0-200) LDL Cholesterol, Calculated 36mg/dL (0-100) VLDL Cholesterol, Calculated 34mg/dL (0-40) HDL Cholesterol 39mg/dL (40-60) Cholesterol/HDL Ratio 2.8 Thyroid Stimulating Hormone (TSH) 13.304uIU/mL (0.358-3.74) Laboratory Tests Test 12/01/16 06:00 Sodium Level 137mmol/L (136-145) Potassium Level 5.3mmol/L (3.5-5.1) Chloride Level 96mmol/L (98-107) Carbon Dioxide Level 26mmol/L (21-32) Anion Gap 15 (6-14) Blood Urea Nitrogen 70mg/dL (7-20) Creatinine 5.5mg/dL (0.6-1.0) Estimated GFR (Cockcroft-Gault) 8.5 Glucose Level 101mg/dL (70-99) Calcium Level 8.7mg/dL (8.5-10.1) Phosphorus Level 8.0mg/dL (2.6-4.7) Magnesium Level 2.1mg/dL (1.8-2.4) Albumin 3.5g/dL (3.4-5.0) Microbiology 11/29/16 Gram Stain - Final, Complete Medications Current Medications Sodium Chloride (Iv Sodium Chloride 0.9% 1000ml Bag) 1,000 ml @ 100 mls/hr Q10H IV Last administered on 11/27/16 19:49; Start 11/27/16 at 19:01; Stop at 05:00; Status DC Albuterol/ Ipratropium (Duoneb) 6 ml 1X ONCE NEB Last administered on 19:10; Start 11/27/16 at 19:30; Stop 11/27/16 at 19:31; Status DC Methylprednisolone Sodium Succinate (Solu-Medrol 125mg Vial) 125 mg 1X ONCE IV Last administered on 11/27/16 19:49; Start 11/27/16 at 19:30; Stop 11/27/16 at 19:31; Status DC Acetaminophen/ Hydrocodone Bitart (Lortab 7.5/325) 1 tab 1X ONCE PO Last administered on 11/27/16 20:29; Start 11/27/16 at 20:15; Stop 11/27/16 at 20:17; Status DC Lisinopril (Prinivil) 10 mg 1X ONCE PO Last administered on 11/27/16 21:09; Start 11/27/16 at 21:15; Stop 11/27/16 at 21:16; Status DC Amlodipine Besylate (Norvasc) 10 mg 1X ONCE PO Last administered on 11/27/16 21:08; Start 11/27/16 at 21:15; Stop 11/27/16 at 21:16; Status DC Clonidine HCl (Catapres) 0.3 mg 1X ONCE PO Last administered on 11/27/16 21:09 ; Start 11/27/16 at 21:15; Stop 11/27/16 at 21:16; Status DC Ondansetron HCl (Zofran) 4 mg PRN Q8HRS PRN IV NAUSEA/VOMITING Last administered on 11/28/16 18:24; Start 11/27/16 at 22:30; Stop 11/28/16 at 22:29; Status DC Fentanyl Citrate (Fentanyl 2ml Vial) 50 mcg PRN Q2HR PRN IV SEVERE PAIN Last administered on 11/28/16 21:31; Start 11/27/16 at 22:30; Stop 11/28/16 at 22:29; Status DC Acetaminophen (Tylenol) 650 mg PRN Q4HRS PRN PO FEVER; Start 11/27/16 at 22:30; Stop 11/28/16 at 22:29; Status DC Albuterol/ Ipratropium (Duoneb) 3 ml RTQID NEB Last administered on 11/29/16 06 :06; Start 11/28/16 at 08:00; Stop 11/29/16 at 07:59; Status DC Methylprednisolone Sodium Succinate (Solu-Medrol 40mg Vial) 60 mg Q6HRS IV Last administered on 12/01/16 06:00; Start 11/28/16 at 00:00 Diphenhydramine HCl (Benadryl) 25 mg 1X ONCE IVP Last administered on 23:30; Start 11/27/16 at 23:00; Stop 11/27/16 at 23:01; Status DC Diphenhydramine HCl (Benadryl) 25 mg PRN Q6HRS PRN IVP ITCHING Last administered on 11/30/16 10:05; Start 11/28/16 at 02:00 Albuterol Sulfate (Ventolin Neb Soln) 2.5 mg PRN Q4HRS PRN NEB SHORTNESS OF BREATH Last administered on 12/01/16 05:40; Start 11/28/16 at 05:15 Acetaminophen (Tylenol) 500 mg PRN Q6HRS PRN PO PAIN Last administered on 06:13; Start 11/28/16 at 07:15 Lactobacillus Acidophilus (Bacid, Maren-Bid) 1 tab TIDWMEALS PO Last administered on 11/30/16 18:06; Start 11/28/16 at 08:00 Acyclovir (Zovirax) 200 mg BID PO Last administered on 11/30/16 20:36; Start at 09:00 Amlodipine Besylate (Norvasc) 10 mg HS PO Last administered on 11/30/16 20:35; Start 11/28/16 at 21:00 Clonidine HCl (Catapres) 0.3 mg TID PO Last administered on 11/28/16 20:54; Start 11/28/16 at 09:00; Stop 11/29/16 at 14:02; Status DC Darbepoetin Apolinar (Aranesp) 60 mcg Tu SQ Last administered on 11/28/16 20:53; Start 11/28/16 at 21:00 Diclofenac Epolamine (Flector) 1 patch BID TD ; Start 11/28/16 at 09:00; Stop 11/28/16 at 14:38; Status DC Furosemide (Lasix) 80 mg TID@,, PO Last administered on 12/01/16 10:47; Start 11/28/16 at 09:00 Acetaminophen/ Hydrocodone Bitart (Lortab 7.5/325) 1 tab PRN Q4HRS PRN PO SEVERE PAIN Last administered on 11/30/16 04:10; Start 11/28/16 at 07:15 Isosorbide Mononitrate (Imdur) 30 mg DAILY PO Last administered on 11/30/16 09: 30; Start 11/28/16 at 09:00 Lidocaine/ Prilocaine (Emla) 1 oniel PRN QID PRN TP pain; Start 11/28/16 at 07:15 Lisinopril (Prinivil) 10 mg DAILY PO Last administered on 11/30/16 09:30; Start 11/28/16 at 09:00 Loperamide HCl (Imodium) 2 mg PRN Q15MIN PRN PO DIARRHEA; Start 11/28/16 at 07: 15 Lorazepam (Ativan) 1 mg PRN Q6HRS PRN PO VOMITING; Start 11/28/16 at 07:15 Methocarbamol (Robaxin) 1,500 mg PRN QID PRN PO SEVERE PAIN Last administered on 11/30/16 23:37; Start 11/28/16 at 07:15 Paroxetine HCl (Paxil) 20 mg QHS PO Last administered on 11/30/16 20:35; Start 11/28/16 at 21:00 Sevelamer Carbonate (Renvela) 800 mg TIDWMEALS PO Last administered on 10:48; Start 11/28/16 at 08:00 Dicyclomine HCl (Bentyl) 20 mg PRN TID PRN PO Stomach pain Last administered on 11/28/16 09:02; Start 11/28/16 at 07:45 Diphenhydramine HCl (Benadryl) 50 mg QHS PO Last administered on 11/30/16 20:36 ; Start 11/28/16 at 21:00 Non-Formulary Medication 2 puff DAILY IH ; Start 11/28/16 at 09:00; Stop 11/28/16 at 09:00; Status DC Folic Acid/ Multivitamins/Vit B12 (Nephro-Sheree) 1 tab DAILY PO Last administered on 11/30/16 09:29; Start 11/28/16 at 09:00 Cetirizine HCl (Zyrtec) 10 mg QHS PO Last administered on 11/30/16 20:35; Start 11/28/16 at 21:00 Non-Formulary Medication 8 mg PRN BID PRN PO NAUSEA/VOMITING; Start 11/28/16 at 07:15; Stop 11/30/16 at 10:18; Status DC Budesonide 0.5 mg 0.5 mg RTBID NEB Last administered on 12/01/16 08:33; Start 11/28/16 at 08:00 Magnesium Sulfate/ Dextrose (Magnesium Sulfate PREMIX 2GM) 50 ml @ 25 mls/hr PRN DAILY PRN IV for Mag < 1.7 on am labs; Start 11/28/16 at 10:45 Hydralazine HCl (Apresoline) 50 mg TID PO ; Start 11/28/16 at 14:00; Stop at 15:49; Status DC Hydralazine HCl (Apresoline) 10 mg PRN Q4HRS PRN IVP ELEVATED BP, SEE COMMENTS Last administered on 11/30/16 14:19; Start 11/28/16 at 12:00 Hydralazine HCl 25 mg 25 mg TID PO Last administered on 11/30/16 14:14; Start 11/28/16 at 21:00; Stop 11/30/16 at 15:13; Status DC Sodium Chloride (Iv Sodium Chloride 0.9% 1000ml Bag) 1,000 ml @ 1,000 mls/hr Q1H PRN IV hypotension; Start 11/29/16 at 08:51; Stop 11/29/16 at 14:50; Status DC Diphenhydramine HCl (Benadryl) 25 mg 1X PRN PRN IV ITCHING; Start 11/29/16 at 09 :00; Stop 11/30/16 at 08:59; Status DC Diphenhydramine HCl (Benadryl) 25 mg 1X PRN PRN IV ITCHING; Start 11/29/16 at 09 :00; Stop 11/30/16 at 08:59; Status DC Info (PHARMACY MONITORING -- do not chart) 1 each PRN DAILY PRN MC SEE COMMENTS ; Start 11/29/16 at 09:00 Info (PHARMACY MONITORING -- do not chart) 1 each PRN DAILY PRN MC SEE COMMENTS ; Start 11/29/16 at 09:00; Status UNV Fentanyl Citrate (Fentanyl 2ml Vial) 25 mcg PRN Q5MIN PRN IV MILD PAIN; Start 11/29/16 at 09:30; Stop 11/30/16 at 03:58; Status DC Fentanyl Citrate 50 mcg 50 mcg PRN Q5MIN PRN IV MODERATE PAIN Last administered on 11/29/16 17:38; Start 11/29/16 at 09:30; Stop 11/30/16 at 03:58; Status DC Lactated Ringer's (Iv Lactated Ringers) 1,000 ml @ 0 mls/hr Q0M IV ; Start 11/29 at 09:16; Stop 11/29/16 at 21:15; Status DC Lidocaine HCl 2 ml 1X PRN PRN ID IV START; Start 11/29/16 at 09:30; Stop at 03:58; Status DC Prochlorperazine Edisylate (Compazine) 5 mg PACU PRN PRN IV NAUSEA; Start at 09:30; Stop 11/30/16 at 03:58; Status DC Fentanyl Citrate (Fentanyl 2ml Vial) 50 mcg PRN Q2HR PRN IV PAIN Last administered on 12/01/16 13:31; Start 11/29/16 at 10:30 Ondansetron HCl (Zofran) 4 mg PRN Q6HRS PRN IV NAUSEA/VOMITING Last administered on 11/29/16 10:59; Start 11/29/16 at 10:30; Stop 11/29/16 at 14:41; Status DC Lidocaine/Sodium Bicarbonate (Buffered Lidocaine 1%) 3 ml 1X ONCE IJ Last administered on 11/29/16 14:32; Start 11/29/16 at 12:45; Stop 11/29/16 at 12:46; Status DC Bupivacaine HCl/ Epinephrine Bitart (Sensorcain-Mpf Epi 0.5%-[id number]) 30 ml STK -MED ONCE .ROUTE Last administered on 11/29/16 16:47; Start 11/29/16 at 13:57; Stop 11/29/16 at 13:58; Status DC Carvedilol (Coreg) 12.5 mg BIDWMEALS PO Last administered on 11/30/16 09:29; Start 11/29/16 at 17:00; Stop 11/30/16 at 15:13; Status DC Clonidine HCl 1 patch 1 patch WEEKLY TD Last administered on 11/29/16 18:05; Start 11/29/16 at 14:30 Propofol (Diprivan) 20 ml @ As Directed STK-MED ONCE IV ; Start 11/29/16 at 14:14 ; Stop 11/29/16 at 14:15; Status DC Fentanyl Citrate (Fentanyl 2ml Vial) 100 mcg STK-MED ONCE .ROUTE ; Start at 14:14; Stop 11/29/16 at 14:15; Status DC Ondansetron HCl (Zofran) 4 mg STK-MED ONCE .ROUTE ; Start 11/29/16 at 14:14; Stop 11/29/16 at 14:15; Status DC Ondansetron HCl (Zofran) 8 mg PRN Q6HRS PRN IV NAUSEA/VOMITING Last administered on 12/01/16 08:16; Start 11/29/16 at 14:45 Midazolam HCl (Versed) 2 mg STK-MED ONCE .ROUTE ; Start 11/29/16 at 16:44; Stop 11/29/16 at 16:45; Status DC Pantoprazole Sodium (Protonix) 40 mg DAILYAC PO Last administered on 12/01/16 10:47; Start 11/30/16 at 09:30 Ondansetron HCl (Zofran Odt) 8 mg PRN BID PRN PO NAUSEA/VOMITING; Start at 10:30 Carvedilol (Coreg) 25 mg BIDWMEALS PO Last administered on 12/01/16 10:48; Start 11/30/16 at 17:00 Hydralazine HCl (Apresoline) 50 mg TID PO Last administered on 12/01/16 10:47 ; Start 11/30/16 at 15:30 Aspirin (Ecotrin) 81 mg DAILYWBKFT PO Last administered on 11/30/16 18:05; Start 11/30/16 at 16:00 Regadenoson (Lexiscan) 0.4 mg 1X ONCE IV Last administered on 2/10/17at 09:28 ; Start 12/01/16 at 08:15; Stop 12/01/16 at 08:16; Status DC Levothyroxine Sodium 100 mcg 100 mcg DAILY07 PO ; Start 12/01/16 at 14:00 Sodium Chloride 1,000 ml @ 1,000 mls/hr Q1H PRN IV hypotension; Start 12/01/16 at 15:26; Stop 12/01/16 at 21:00 Sodium Chloride (Iv Sodium Chloride 0.9% 1000ml Bag) 1,000 ml @ 400 mls/hr Q2H30M PRN IV PATENCY; Start 12/01/16 at 15:26; Stop 12/01/16 at 21:00 Info (PHARMACY MONITORING -- do not chart) 1 each PRN DAILY PRN MC SEE COMMENTS ; Start 12/01/16 at 15:30; Status UNV Info (PHARMACY MONITORING -- do not chart) 1 each PRN DAILY PRN MC SEE COMMENTS ; Start 12/01/16 at 15:30; Status UNV Active Scripts Active Levaquin (Levofloxacin) 500 Mg Tablet 500 Mg PO Q48H Lisinopril 10 Mg Tablet 10 Mg PO DAILY 30 Days Hydrocodone-Apap 7.5-325 (Hydrocodone Bit/Acetaminophen) 1 Each Tablet 1 Tab PO PRN Q4HRS PRN 14 Days Flector (Diclofenac Epolamine) 1 Each Patch.td12 1 Patch TD BID 30 Days Aranesp Syringe (Darbepoetin Apolinar In Polysorbat) 60 Mcg/0.3 Ml Disp.syrin 60 Mcg SQ WEEKLYHS 30 Days Furosemide 80 Mg Tablet 80 Mg PO TID 30 Days Loperamide (Loperamide Hcl) 2 Mg Capsule 2 Mg PO PRN Q15MIN PRN 30 Days Isosorbide Mononitrate Er (Isosorbide Mononitrate) 30 Mg Tab.er.24h 30 Mg PO DAILY 30 Days Maren-Bid Caplet (Acidoph/L.bulg/Bif.b/S.thermop) 1 Each Tablet 1 Tab PO TIDWMEALS 30 Days Reported Lorazepam 1 Mg Tablet 1 Mg PO PRN Q6HRS PRN Renvela (Sevelamer Carbonate) 800 Mg Tablet 2 Tab PO TID Lidocaine-Prilocaine Cream (Lidocaine/Prilocaine) 30 Gm Cream..g. 1 Oniel TP UD Dicyclomine Hcl 20 Mg Tablet 1 Tab PO TID PRN Clonidine Hcl 0.3 Mg Tablet 0.3 Mg PO TID Amlodipine Besylate 10 Mg Tablet 10 Mg PO HS Renal Caps Softgel (Folic Acid/Vitamin B Comp W-C) 1 Mg Capsule 1 Cap PO DAILY Advair 250-50 Diskus (Fluticasone/Salmeterol) 1 Each Disk.w.dev 2 Puff IH DAILY Proair Hfa Inhaler (Albuterol Sulfate) 8.5 Gm Hfa.aer.ad 2 Puff INH PRN Q6HRS PRN Acyclovir 200 Mg Capsule 200 Mg PO BID Paroxetine Hcl 20 Mg Tablet 20 Mg PO QHS Nighttime Sleep Aid (Diphenhydramine Hcl) 50 Mg Capsule 50 Mg PO QHS Ondansetron Hcl 8 Mg Tablet 8 Mg PO BID PRN Methocarbamol 750 Mg Tablet 1,500 Mg PO QID PRN Tylenol Extra Strength (Acetaminophen) 500 Mg Tablet 500 Mg PO Q6HRS PRN Claritin (Loratadine) 10 Mg Capsule 10 Mg PO HS Vitals/I & O Vital Sign - Last 24 Hours 11/30/16 11/30/16 11/30/16 11/30/16 18:06 19:30 19:50 20:34 Temp 97.6 97.6 Pulse 101 96 Resp 20 22 B/P 129/87 Pulse Ox 96 96 O2 Delivery Nasal Cannula Nasal Cannula Nasal Cannula O2 Flow Rate 4.0 4.0 4.0 11/30/16 11/30/16 11/30/16 11/30/16 20:35 20:35 23:28 23:46 Temp 97.5 97.5 Pulse 96 96 95 Resp 18 B/P 129/87 129/87 151/88 Pulse Ox 98 91 O2 Delivery Nasal Cannula Nasal Cannula O2 Flow Rate 4.0 4.0 12/01/16 12/01/16 12/01/16 12/01/16 03:55 04:37 05:10 05:41 Temp 98.0 98.0 Pulse 100 Resp 20 20 B/P 167/96 Pulse Ox 99 99 99 99 O2 Delivery Nasal Cannula Nasal Cannula Nasal Cannula O2 Flow Rate 4.0 4.0 4.0 4.0 12/01/16 12/01/16 12/01/16 12/01/16 07:00 08:00 08:33 10:46 Temp 97.7 97.7 Pulse 94 Resp 22 20 B/P 175/95 Pulse Ox 98 98 O2 Delivery Nasal Cannula Nasal Cannula Nasal Cannula O2 Flow Rate 4.0 3.5 3.5 12/01/16 12/01/16 12/01/16 12/01/16 10:47 10:48 11:00 11:15 Temp 97.7 97.7 Pulse 94 94 95 Resp 20 18 B/P 175/95 175/95 170/94 Pulse Ox 100 O2 Delivery Nasal Cannula Room Air O2 Flow Rate 4.0 12/01/16 13:31 Resp 5 O2 Delivery Nasal Cannula Intake and Output 11/30/16 11/30/16 12/01/16 15:00 23:00 07:00 Intake Total 720 ml 240 ml 100 ml Output Total 175 ml 175 ml Balance 545 ml 240 ml -75 ml JONATHAN KIRK MD Dec 01, 2016 16:47
--- NOTE | 2016-12-01 18:00 | PDOC ---
PROGRESS NOTES Subjective Subjective gas and bloating with nausea and poor appetite today. Stress MPI normal with normal EF. To be dialyzed today. Requesting fentanyl and zofran frequently due to abd pain and nausea, nursing thinks her fentanyl is causing the nausea but pt disagrees and states its the bloating and gas Objective Objective Vital Signs Date Time Temp Pulse Resp B/P Pulse Ox O2 Delivery O2 Flow Rate FiO2 12/01/16 14:00 20 12/01/16 13:31 Nasal Cannula 12/01/16 11:00 97.7 95 170/94 100 4.0 97.7 Intake and Output 12/01/16 07:00 Intake Total 1060 ml Output Total 350 ml Balance 710 ml Intake Oral 1060 ml Output Urine Total 350 ml # Bowel Movements 3 Physical Exam Abdomen: Soft Heart: Regular rate Extremities: No clubbing, No cyanosis General: Alert, Oriented X3, moderate distress HEENT: Atraumatic Neck: Supple, No JVD Neuro: Normal speech Skin: Other (biopsy site dressed) Assessment Assessment Problems Medical Problems: (1) Accelerated hypertension-stable,adjusting meds but pt has refused occasional doses Status: Acute (2) Bilateral pleural effusion-improved, s/p thoracentesis Status: Acute (3) COPD with acute exacerbation-stable, begin steroid taper Status: Acute (4) End stage renal disease-resume routine M-W-F dialysis Status: Acute (5) flank mass-biopsy results pending (6) multiple myeloma - Dr. Gordon does not think her chemo ix cause of her diminished EF (7) cardiomyopathy with valvular heart disease - at high risk for Afib, stress MPI normal and EF back to normal so can transfer back to medical bed (8) hypothyroidism - begin levothyroxine Status: Acute Comment Review of Relevant I have reviewed the following items ernesto (where applicable) has been applied. Labs Laboratory Tests Test 11/30/16 06:40 12/01/16 06:00 Sodium Level 136mmol/L (136-145) 137mmol/L (136-145) Potassium Level 4.8mmol/L (3.5-5.1) 5.3mmol/L (3.5-5.1) Chloride Level 97mmol/L (98-107) 96mmol/L (98-107) Carbon Dioxide Level 25mmol/L (21-32) 26mmol/L (21-32) Anion Gap 14 (6-14) 15 (6-14) Blood Urea Nitrogen 42mg/dL (7-20) 70mg/dL (7-20) Creatinine 4.3mg/dL (0.6-1.0) 5.5mg/dL (0.6-1.0) Estimated GFR (Cockcroft-Gault) 11.4 8.5 Glucose Level 102mg/dL (70-99) 101mg/dL (70-99) Calcium Level 8.7mg/dL (8.5-10.1) 8.7mg/dL (8.5-10.1) Phosphorus Level 6.8mg/dL (2.6-4.7) 8.0mg/dL (2.6-4.7) Magnesium Level 2.1mg/dL (1.8-2.4) 2.1mg/dL (1.8-2.4) Albumin 3.3g/dL (3.4-5.0) 3.5g/dL (3.4-5.0) Triglycerides Level 168mg/dL (0-150) Cholesterol Level 109mg/dL (0-200) LDL Cholesterol, Calculated 36mg/dL (0-100) VLDL Cholesterol, Calculated 34mg/dL (0-40) HDL Cholesterol 39mg/dL (40-60) Cholesterol/HDL Ratio 2.8 Thyroid Stimulating Hormone (TSH) 13.304uIU/mL (0.358-3.74) Laboratory Tests Test 12/01/16 06:00 Sodium Level 137mmol/L (136-145) Potassium Level 5.3mmol/L (3.5-5.1) Chloride Level 96mmol/L (98-107) Carbon Dioxide Level 26mmol/L (21-32) Anion Gap 15 (6-14) Blood Urea Nitrogen 70mg/dL (7-20) Creatinine 5.5mg/dL (0.6-1.0) Estimated GFR (Cockcroft-Gault) 8.5 Glucose Level 101mg/dL (70-99) Calcium Level 8.7mg/dL (8.5-10.1) Phosphorus Level 8.0mg/dL (2.6-4.7) Magnesium Level 2.1mg/dL (1.8-2.4) Albumin 3.5g/dL (3.4-5.0) Microbiology 11/29/16 Gram Stain - Final, Complete Medications Current Medications Sodium Chloride (Iv Sodium Chloride 0.9% 1000ml Bag) 1,000 ml @ 100 mls/hr Q10H IV Last administered on 11/27/16 19:49; Start 11/27/16 at 19:01; Stop at 05:00; Status DC Albuterol/ Ipratropium (Duoneb) 6 ml 1X ONCE NEB Last administered on 19:10; Start 11/27/16 at 19:30; Stop 11/27/16 at 19:31; Status DC Methylprednisolone Sodium Succinate (Solu-Medrol 125mg Vial) 125 mg 1X ONCE IV Last administered on 11/27/16 19:49; Start 11/27/16 at 19:30; Stop 11/27/16 at 19:31; Status DC Acetaminophen/ Hydrocodone Bitart (Lortab 7.5/325) 1 tab 1X ONCE PO Last administered on 11/27/16 20:29; Start 11/27/16 at 20:15; Stop 11/27/16 at 20:17; Status DC Lisinopril (Prinivil) 10 mg 1X ONCE PO Last administered on 11/27/16 21:09; Start 11/27/16 at 21:15; Stop 11/27/16 at 21:16; Status DC Amlodipine Besylate (Norvasc) 10 mg 1X ONCE PO Last administered on 11/27/16 21:08; Start 11/27/16 at 21:15; Stop 11/27/16 at 21:16; Status DC Clonidine HCl (Catapres) 0.3 mg 1X ONCE PO Last administered on 11/27/16 21:09 ; Start 11/27/16 at 21:15; Stop 11/27/16 at 21:16; Status DC Ondansetron HCl (Zofran) 4 mg PRN Q8HRS PRN IV NAUSEA/VOMITING Last administered on 11/28/16 18:24; Start 11/27/16 at 22:30; Stop 11/28/16 at 22:29; Status DC Fentanyl Citrate (Fentanyl 2ml Vial) 50 mcg PRN Q2HR PRN IV SEVERE PAIN Last administered on 11/28/16 21:31; Start 11/27/16 at 22:30; Stop 11/28/16 at 22:29; Status DC Acetaminophen (Tylenol) 650 mg PRN Q4HRS PRN PO FEVER; Start 11/27/16 at 22:30; Stop 11/28/16 at 22:29; Status DC Albuterol/ Ipratropium (Duoneb) 3 ml RTQID NEB Last administered on 11/29/16 06 :06; Start 11/28/16 at 08:00; Stop 11/29/16 at 07:59; Status DC Methylprednisolone Sodium Succinate (Solu-Medrol 40mg Vial) 60 mg Q6HRS IV Last administered on 12/01/16 06:00; Start 11/28/16 at 00:00 Diphenhydramine HCl (Benadryl) 25 mg 1X ONCE IVP Last administered on 23:30; Start 11/27/16 at 23:00; Stop 11/27/16 at 23:01; Status DC Diphenhydramine HCl (Benadryl) 25 mg PRN Q6HRS PRN IVP ITCHING Last administered on 11/30/16 10:05; Start 11/28/16 at 02:00 Albuterol Sulfate (Ventolin Neb Soln) 2.5 mg PRN Q4HRS PRN NEB SHORTNESS OF BREATH Last administered on 12/01/16 05:40; Start 11/28/16 at 05:15 Acetaminophen (Tylenol) 500 mg PRN Q6HRS PRN PO PAIN Last administered on 06:13; Start 11/28/16 at 07:15 Lactobacillus Acidophilus (Bacid, Maren-Bid) 1 tab TIDWMEALS PO Last administered on 11/30/16 18:06; Start 11/28/16 at 08:00 Acyclovir (Zovirax) 200 mg BID PO Last administered on 11/30/16 20:36; Start at 09:00 Amlodipine Besylate (Norvasc) 10 mg HS PO Last administered on 11/30/16 20:35; Start 11/28/16 at 21:00 Clonidine HCl (Catapres) 0.3 mg TID PO Last administered on 11/28/16 20:54; Start 11/28/16 at 09:00; Stop 11/29/16 at 14:02; Status DC Darbepoetin Apolinar (Aranesp) 60 mcg Tu SQ Last administered on 11/28/16 20:53; Start 11/28/16 at 21:00 Diclofenac Epolamine (Flector) 1 patch BID TD ; Start 11/28/16 at 09:00; Stop 11/28/16 at 14:38; Status DC Furosemide (Lasix) 80 mg TID@,, PO Last administered on 12/01/16 10:47; Start 11/28/16 at 09:00 Acetaminophen/ Hydrocodone Bitart (Lortab 7.5/325) 1 tab PRN Q4HRS PRN PO SEVERE PAIN Last administered on 11/30/16 04:10; Start 11/28/16 at 07:15 Isosorbide Mononitrate (Imdur) 30 mg DAILY PO Last administered on 11/30/16 09: 30; Start 11/28/16 at 09:00 Lidocaine/ Prilocaine (Emla) 1 oniel PRN QID PRN TP pain; Start 11/28/16 at 07:15 Lisinopril (Prinivil) 10 mg DAILY PO Last administered on 12/01/16 09:00; Start 11/28/16 at 09:00 Loperamide HCl (Imodium) 2 mg PRN Q15MIN PRN PO DIARRHEA; Start 11/28/16 at 07: 15 Lorazepam (Ativan) 1 mg PRN Q6HRS PRN PO VOMITING; Start 11/28/16 at 07:15 Methocarbamol (Robaxin) 1,500 mg PRN QID PRN PO SEVERE PAIN Last administered on 11/30/16 23:37; Start 11/28/16 at 07:15 Paroxetine HCl (Paxil) 20 mg QHS PO Last administered on 11/30/16 20:35; Start 11/28/16 at 21:00 Sevelamer Carbonate (Renvela) 800 mg TIDWMEALS PO Last administered on 10:48; Start 11/28/16 at 08:00 Dicyclomine HCl (Bentyl) 20 mg PRN TID PRN PO Stomach pain Last administered on 11/28/16 09:02; Start 11/28/16 at 07:45 Diphenhydramine HCl (Benadryl) 50 mg QHS PO Last administered on 11/30/16 20:36 ; Start 11/28/16 at 21:00 Non-Formulary Medication 2 puff DAILY IH ; Start 11/28/16 at 09:00; Stop 11/28/16 at 09:00; Status DC Folic Acid/ Multivitamins/Vit B12 (Nephro-Sheree) 1 tab DAILY PO Last administered on 11/30/16 09:29; Start 11/28/16 at 09:00 Cetirizine HCl (Zyrtec) 10 mg QHS PO Last administered on 11/30/16 20:35; Start 11/28/16 at 21:00 Non-Formulary Medication 8 mg PRN BID PRN PO NAUSEA/VOMITING; Start 11/28/16 at 07:15; Stop 11/30/16 at 10:18; Status DC Budesonide 0.5 mg 0.5 mg RTBID NEB Last administered on 12/01/16 08:33; Start 11/28/16 at 08:00 Magnesium Sulfate/ Dextrose (Magnesium Sulfate PREMIX 2GM) 50 ml @ 25 mls/hr PRN DAILY PRN IV for Mag < 1.7 on am labs; Start 11/28/16 at 10:45 Hydralazine HCl (Apresoline) 50 mg TID PO ; Start 11/28/16 at 14:00; Stop at 15:49; Status DC Hydralazine HCl (Apresoline) 10 mg PRN Q4HRS PRN IVP ELEVATED BP, SEE COMMENTS Last administered on 11/30/16 14:19; Start 11/28/16 at 12:00 Hydralazine HCl 25 mg 25 mg TID PO Last administered on 11/30/16 14:14; Start 11/28/16 at 21:00; Stop 11/30/16 at 15:13; Status DC Sodium Chloride (Iv Sodium Chloride 0.9% 1000ml Bag) 1,000 ml @ 1,000 mls/hr Q1H PRN IV hypotension; Start 11/29/16 at 08:51; Stop 11/29/16 at 14:50; Status DC Diphenhydramine HCl (Benadryl) 25 mg 1X PRN PRN IV ITCHING; Start 11/29/16 at 09 :00; Stop 11/30/16 at 08:59; Status DC Diphenhydramine HCl (Benadryl) 25 mg 1X PRN PRN IV ITCHING; Start 11/29/16 at 09 :00; Stop 11/30/16 at 08:59; Status DC Info (PHARMACY MONITORING -- do not chart) 1 each PRN DAILY PRN MC SEE COMMENTS ; Start 11/29/16 at 09:00 Info (PHARMACY MONITORING -- do not chart) 1 each PRN DAILY PRN MC SEE COMMENTS ; Start 11/29/16 at 09:00; Status UNV Fentanyl Citrate (Fentanyl 2ml Vial) 25 mcg PRN Q5MIN PRN IV MILD PAIN; Start 11/29/16 at 09:30; Stop 11/30/16 at 03:58; Status DC Fentanyl Citrate 50 mcg 50 mcg PRN Q5MIN PRN IV MODERATE PAIN Last administered on 11/29/16 17:38; Start 11/29/16 at 09:30; Stop 11/30/16 at 03:58; Status DC Lactated Ringer's (Iv Lactated Ringers) 1,000 ml @ 0 mls/hr Q0M IV ; Start 11/29 at 09:16; Stop 11/29/16 at 21:15; Status DC Lidocaine HCl 2 ml 1X PRN PRN ID IV START; Start 11/29/16 at 09:30; Stop at 03:58; Status DC Prochlorperazine Edisylate (Compazine) 5 mg PACU PRN PRN IV NAUSEA; Start at 09:30; Stop 11/30/16 at 03:58; Status DC Fentanyl Citrate (Fentanyl 2ml Vial) 50 mcg PRN Q2HR PRN IV PAIN Last administered on 12/01/16 13:31; Start 11/29/16 at 10:30; Stop 12/01/16 at 17:25 ; Status DC Ondansetron HCl (Zofran) 4 mg PRN Q6HRS PRN IV NAUSEA/VOMITING Last administered on 11/29/16 10:59; Start 11/29/16 at 10:30; Stop 11/29/16 at 14:41; Status DC Lidocaine/Sodium Bicarbonate (Buffered Lidocaine 1%) 3 ml 1X ONCE IJ Last administered on 11/29/16 14:32; Start 11/29/16 at 12:45; Stop 11/29/16 at 12:46; Status DC Bupivacaine HCl/ Epinephrine Bitart (Sensorcain-Mpf Epi 0.5%-1:[id number]) 30 ml STK -MED ONCE .ROUTE Last administered on 11/29/16 16:47; Start 11/29/16 at 13:57; Stop 11/29/16 at 13:58; Status DC Carvedilol (Coreg) 12.5 mg BIDWMEALS PO Last administered on 11/30/16 09:29; Start 11/29/16 at 17:00; Stop 11/30/16 at 15:13; Status DC Clonidine HCl 1 patch 1 patch WEEKLY TD Last administered on 11/29/16 18:05; Start 11/29/16 at 14:30 Propofol (Diprivan) 20 ml @ As Directed STK-MED ONCE IV ; Start 11/29/16 at 14:14 ; Stop 11/29/16 at 14:15; Status DC Fentanyl Citrate (Fentanyl 2ml Vial) 100 mcg STK-MED ONCE .ROUTE ; Start at 14:14; Stop 11/29/16 at 14:15; Status DC Ondansetron HCl (Zofran) 4 mg STK-MED ONCE .ROUTE ; Start 11/29/16 at 14:14; Stop 11/29/16 at 14:15; Status DC Ondansetron HCl (Zofran) 8 mg PRN Q6HRS PRN IV NAUSEA/VOMITING Last administered on 12/01/16 08:16; Start 11/29/16 at 14:45 Midazolam HCl (Versed) 2 mg STK-MED ONCE .ROUTE ; Start 11/29/16 at 16:44; Stop 11/29/16 at 16:45; Status DC Pantoprazole Sodium (Protonix) 40 mg DAILYAC PO Last administered on 12/01/16 10:47; Start 11/30/16 at 09:30 Ondansetron HCl (Zofran Odt) 8 mg PRN BID PRN PO NAUSEA/VOMITING; Start at 10:30 Carvedilol (Coreg) 25 mg BIDWMEALS PO Last administered on 12/01/16 10:48; Start 11/30/16 at 17:00 Hydralazine HCl (Apresoline) 50 mg TID PO Last administered on 12/01/16 10:47 ; Start 11/30/16 at 15:30 Aspirin (Ecotrin) 81 mg DAILYWBKFT PO Last administered on 11/30/16 18:05; Start 11/30/16 at 16:00 Regadenoson (Lexiscan) 0.4 mg 1X ONCE IV Last administered on 12/01/16 09:28 ; Start 12/01/16 at 08:15; Stop 12/01/16 at 08:16; Status DC Levothyroxine Sodium 100 mcg 100 mcg DAILY07 PO ; Start 12/01/16 at 14:00 Sodium Chloride 1,000 ml @ 1,000 mls/hr Q1H PRN IV hypotension; Start 12/01/16 at 15:26; Stop 12/01/16 at 21:00 Sodium Chloride (Iv Sodium Chloride 0.9% 1000ml Bag) 1,000 ml @ 400 mls/hr Q2H30M PRN IV PATENCY; Start 12/01/16 at 15:26; Stop 12/01/16 at 21:00 Info (PHARMACY MONITORING -- do not chart) 1 each PRN DAILY PRN MC SEE COMMENTS ; Start 12/01/16 at 15:30; Status UNV Info (PHARMACY MONITORING -- do not chart) 1 each PRN DAILY PRN MC SEE COMMENTS ; Start 12/01/16 at 15:30; Status UNV Fentanyl Citrate (Fentanyl 2ml Vial) 50 mcg PRN Q4HRS PRN IV PAIN; Start at 17:30 Active Scripts Active Levaquin (Levofloxacin) 500 Mg Tablet 500 Mg PO Q48H Lisinopril 10 Mg Tablet 10 Mg PO DAILY 30 Days Hydrocodone-Apap 7.5-325 (Hydrocodone Bit/Acetaminophen) 1 Each Tablet 1 Tab PO PRN Q4HRS PRN 14 Days Flector (Diclofenac Epolamine) 1 Each Patch.td12 1 Patch TD BID 30 Days Aranesp Syringe (Darbepoetin Apolinar In Polysorbat) 60 Mcg/0.3 Ml Disp.syrin 60 Mcg SQ WEEKLYHS 30 Days Furosemide 80 Mg Tablet 80 Mg PO TID 30 Days Loperamide (Loperamide Hcl) 2 Mg Capsule 2 Mg PO PRN Q15MIN PRN 30 Days Isosorbide Mononitrate Er (Isosorbide Mononitrate) 30 Mg Tab.er.24h 30 Mg PO DAILY 30 Days Maren-Bid Caplet (Acidoph/L.bulg/Bif.b/S.thermop) 1 Each Tablet 1 Tab PO TIDWMEALS 30 Days Reported Lorazepam 1 Mg Tablet 1 Mg PO PRN Q6HRS PRN Renvela (Sevelamer Carbonate) 800 Mg Tablet 2 Tab PO TID Lidocaine-Prilocaine Cream (Lidocaine/Prilocaine) 30 Gm Cream..g. 1 Oniel TP UD Dicyclomine Hcl 20 Mg Tablet 1 Tab PO TID PRN Clonidine Hcl 0.3 Mg Tablet 0.3 Mg PO TID Amlodipine Besylate 10 Mg Tablet 10 Mg PO HS Renal Caps Softgel (Folic Acid/Vitamin B Comp W-C) 1 Mg Capsule 1 Cap PO DAILY Advair 250-50 Diskus (Fluticasone/Salmeterol) 1 Each Disk.w.dev 2 Puff IH DAILY Proair Hfa Inhaler (Albuterol Sulfate) 8.5 Gm Hfa.aer.ad 2 Puff INH PRN Q6HRS PRN Acyclovir 200 Mg Capsule 200 Mg PO BID Paroxetine Hcl 20 Mg Tablet 20 Mg PO QHS Nighttime Sleep Aid (Diphenhydramine Hcl) 50 Mg Capsule 50 Mg PO QHS Ondansetron Hcl 8 Mg Tablet 8 Mg PO BID PRN Methocarbamol 750 Mg Tablet 1,500 Mg PO QID PRN Tylenol Extra Strength (Acetaminophen) 500 Mg Tablet 500 Mg PO Q6HRS PRN Claritin (Loratadine) 10 Mg Capsule 10 Mg PO HS Vitals/I & O Vital Sign - Last 24 Hours 11/30/16 11/30/16 11/30/16 11/30/16 18:06 19:30 19:50 20:34 Temp 97.6 97.6 Pulse 101 96 Resp 20 22 B/P 129/87 Pulse Ox 96 96 O2 Delivery Nasal Cannula Nasal Cannula Nasal Cannula O2 Flow Rate 4.0 4.0 4.0 2/9/17 11/30/16 11/30/16 11/30/16 20:35 20:35 23:28 23:46 Temp 97.5 97.5 Pulse 96 96 95 Resp 18 B/P 129/87 129/87 151/88 Pulse Ox 98 91 O2 Delivery Nasal Cannula Nasal Cannula O2 Flow Rate 4.0 4.0 12/01/16 12/01/16 12/01/16 12/01/16 03:55 04:37 05:10 05:41 Temp 98.0 98.0 Pulse 100 Resp 20 20 B/P 167/96 Pulse Ox 99 99 99 99 O2 Delivery Nasal Cannula Nasal Cannula Nasal Cannula O2 Flow Rate 4.0 4.0 4.0 4.0 12/01/16 12/01/16 12/01/16 12/01/16 07:00 08:00 08:33 09:00 Temp 97.7 97.7 Pulse 94 95 Resp 22 B/P 175/95 170/94 Pulse Ox 98 98 O2 Delivery Nasal Cannula Nasal Cannula Nasal Cannula O2 Flow Rate 4.0 3.5 3.5 12/01/16 12/01/16 12/01/16 12/01/16 10:46 10:47 10:48 11:00 Temp 97.7 97.7 Pulse 94 94 95 Resp 20 20 B/P 175/95 175/95 170/94 Pulse Ox 100 O2 Delivery Nasal Cannula O2 Flow Rate 4.0 12/01/16 12/01/16 12/01/16 11:15 13:31 14:00 Resp 5 20 O2 Delivery Room Air Nasal Cannula Intake and Output 11/30/16 11/30/16 12/01/16 15:00 23:00 07:00 Intake Total 720 ml 240 ml 100 ml Output Total 175 ml 175 ml Balance 545 ml 240 ml -75 ml Aden ELLIOTT MD Dec 01, 2016 18:00
[2016-12-01] MEDS: LEVOTHYROXINE 100 MCG TABLET PO SCH (18:10)
[2016-12-01] MEDS: ASPIRIN ENTERIC COATED 81 MG TABLET.DR. PO SCH (18:11)
[2016-12-01] MEDS: ISOSORBIDE MONONITRATE ER 30 MG TAB.ER.24H PO SCH (18:12)
[2016-12-01 19:51] VITALS: BP 137/81
[2016-12-01] MEDS: CETIRIZINE HCL 10 MG TABLET PO SCH (21:21)
[2016-12-01] MEDS: DIPHENHYDRAMINE HCL 25 MG CAPSULE PO SCH (21:21)
[2016-12-01] MEDS: PAROXETINE 20 MG TABLET. PO SCH (21:21)
[2016-12-01] MEDS: AMLODIPINE BESYLATE 10 MG TABLET PO SCH (21:22)
[2016-12-01 23:25] VITALS: BP 145/80
[2016-12-02] MEDS: ALBUTEROL SULFATE 2.5 MG/3 ML NEBU. NEB PRN ×2 (01:10→12:23)
[2016-12-02] MEDS: ONDANSETRON ODT 4 MG TAB.RAPDIS PO PRN ×2 (02:36→19:11)
[2016-12-02] MEDS: DIPHENHYDRAMINE 50 MG/ML VIAL IVP PRN (02:37)
[2016-12-02 03:21] VITALS: BP 151/84
[2016-12-02] MEDS: FENTANYL PF 100 MCG/2 ML VIAL. IV PRN (03:21)
[2016-12-02 05:22] LABS: ALBUMIN 3.2 g/dL (3.4-5.0); CALCIUM 8.5 mg/dL (8.5-10.1); CREATININE 3.9 mg/dL (0.6-1.0); GFR 12.7; PHOSPHORUS 5.6 mg/dL (2.6-4.7); POTASSIUM 3.9 mmol/L (3.5-5.1)
[2016-12-02] MEDS: LEVOTHYROXINE 100 MCG TABLET PO SCH (06:12)
[2016-12-02] MEDS: methylPREDNISolone SOD SUCC PF 40 MG/ML VIAL. IV SCH ×3 (06:12→17:53)
[2016-12-02 07:00] VITALS: BP 166/91
[2016-12-02] MEDS: BUDESONIDE 0.5 MG/2 ML NEBU NEB SCH ×2 (07:50→23:09)
--- NOTE | 2016-12-02 09:43 | PDOC ---
PULMONARY PROGRESS NOTES Subjective has sob, cough, nasal congestion. no pain Vitals Vital Signs Date Time Temp Pulse Resp B/P Pulse Ox O2 Delivery O2 Flow Rate FiO2 12/02/16 07:55 98 Nasal Cannula 2.0 12/02/16 07:00 98.1 111 22 166/91 98.1 Comments ros as mentioned as above other sys otherwise neg General: Alert, No acute distress Lungs: Other (decrease bs bases) Cardiovascular: S1, S2 Abdomen: Soft Neuro Exam: Alert Extremities: No Edema Skin: Warm Labs Laboratory Tests Test 12/01/16 06:00 12/02/16 04:40 Sodium Level 137mmol/L (136-145) 137mmol/L (136-145) Potassium Level 5.3mmol/L (3.5-5.1) 3.9mmol/L (3.5-5.1) Chloride Level 96mmol/L (98-107) 98mmol/L (98-107) Carbon Dioxide Level 26mmol/L (21-32) 29mmol/L (21-32) Anion Gap 15 (6-14) 10 (6-14) Blood Urea Nitrogen 70mg/dL (7-20) 44mg/dL (7-20) Creatinine 5.5mg/dL (0.6-1.0) 3.9mg/dL (0.6-1.0) Estimated GFR (Cockcroft-Gault) 8.5 12.7 Glucose Level 101mg/dL (70-99) 127mg/dL (70-99) Calcium Level 8.7mg/dL (8.5-10.1) 8.5mg/dL (8.5-10.1) Phosphorus Level 8.0mg/dL (2.6-4.7) 5.6mg/dL (2.6-4.7) Magnesium Level 2.1mg/dL (1.8-2.4) 2.0mg/dL (1.8-2.4) Albumin 3.5g/dL (3.4-5.0) 3.2g/dL (3.4-5.0) Laboratory Tests Test 12/02/16 04:40 Sodium Level 137mmol/L (136-145) Potassium Level 3.9mmol/L (3.5-5.1) Chloride Level 98mmol/L (98-107) Carbon Dioxide Level 29mmol/L (21-32) Anion Gap 10 (6-14) Blood Urea Nitrogen 44mg/dL (7-20) Creatinine 3.9mg/dL (0.6-1.0) Estimated GFR (Cockcroft-Gault) 12.7 Glucose Level 127mg/dL (70-99) Calcium Level 8.5mg/dL (8.5-10.1) Phosphorus Level 5.6mg/dL (2.6-4.7) Magnesium Level 2.0mg/dL (1.8-2.4) Albumin 3.2g/dL (3.4-5.0) Medications Active Scripts Medications Dose Route/Sig Days Date Category Levaquin (Levofloxacin) 500 Mg Tablet 500 Mg PO Q48H 09/30/16 Rx Lisinopril 10 Mg Tablet 10 Mg PO DAILY 30 07/06/16 Rx Hydrocodone-Apap 7.5-325 (Hydrocodone Bit/Acetaminophen) 1 Each Tablet 1 Tab PO PRN Q4HRS PRN 14 07/06/16 Rx Flector (Diclofenac Epolamine) 1 Each Patch.td12 1 Patch TD BID 30 07/06/16 Rx Aranesp Syringe (Darbepoetin Apolinar In Polysorbat) 60 Mcg/0.3 Ml Disp.syrin 60 Mcg SQ WEEKLYHS 30 07/06/16 Rx Furosemide 80 Mg Tablet 80 Mg PO TID 30 07/06/16 Rx Lorazepam 1 Mg Tablet 1 Mg PO PRN Q6HRS PRN 07/02/16 Reported Renvela (Sevelamer Carbonate) 800 Mg Tablet 2 Tab PO TID 07/02/16 Reported Loperamide (Loperamide Hcl) 2 Mg Capsule 2 Mg PO PRN Q15MIN PRN 30 06/09/16 Rx Isosorbide Mononitrate Er (Isosorbide Mononitrate) 30 Mg Tab.er.24h 30 Mg PO DAILY 30 06/09/16 Rx Maren-Bid Caplet (Acidoph/L.bulg/Bif.b/S.thermop) 1 Each Tablet 1 Tab PO TIDWMEALS 30 06/09/16 Rx Lidocaine-Prilocaine Cream (Lidocaine/Prilocaine) 30 Gm Cream..g. 1 Oniel TP UD 06/04/16 Reported Dicyclomine Hcl 20 Mg Tablet 1 Tab PO TID PRN 06/04/16 Reported Clonidine Hcl 0.3 Mg Tablet 0.3 Mg PO TID 06/04/16 Reported Amlodipine Besylate 10 Mg Tablet 10 Mg PO HS 06/04/16 Reported Renal Caps Softgel (Folic Acid/Vitamin B Comp W-C) 1 Mg Capsule 1 Cap PO DAILY 01/16/16 Reported Advair 250-50 Diskus (Fluticasone/Salmeterol) 1 Each Disk.w.dev 2 Puff IH DAILY 01/16/16 Reported Proair Hfa Inhaler (Albuterol Sulfate) 8.5 Gm Hfa.aer.ad 2 Puff INH PRN Q6HRS PRN 01/16/16 Reported Acyclovir 200 Mg Capsule 200 Mg PO BID 01/16/16 Reported Paroxetine Hcl 20 Mg Tablet 20 Mg PO QHS 05/09/15 Reported Nighttime Sleep Aid (Diphenhydramine Hcl) 50 Mg Capsule 50 Mg PO QHS 05/09/15 Reported Ondansetron Hcl 8 Mg Tablet 8 Mg PO BID PRN 05/09/14 Reported Methocarbamol 750 Mg Tablet 1,500 Mg PO QID PRN 05/09/14 Reported Tylenol Extra Strength (Acetaminophen) 500 Mg Tablet 500 Mg PO Q6HRS PRN 05/09/14 Reported Claritin (Loratadine) 10 Mg Capsule 10 Mg PO HS 05/09/14 Reported Comments cxr reviewed. There is less left pleural fluid than previously consistent with the interval thoracentesis. Impression . 1. Dyspnea secondary to acute on chronic congestive heart failure, most likely related to mitral regurgitation, which is moderate on previous echo and severe CMP (EF25%). High blood pressure also contributed to the patient's diastolic heart failure. 2. Abnormal ct chest with moderate left effusion and small right. 3. No significant history of tobacco use. 4. Chronic respiratory failure, on home oxygen. 5. History of multiple myeloma, currently on chemo. 6. End-stage renal disease, on hemodialysis. 7. allergic rhinitis Plan . 1. Continue present oxygen. 2. Hemodialysis with increased ultrafiltration. 3. Continue with bronchodilators. 4. Wean oxygen, keeping sats 92 and above. 5. We will follow chest x-ray in few days after dialysis. 6. Steroid taper. 7. Follow Oncology recommendations. 8. s/p left thoracentesis, follow results 9. shanique yanes w pt and rn ARIK WEBSTER MD Dec 02, 2016 09:43
[2016-12-02] MEDS: FOLIC/VIT B COMP W-C (RENAL) TABLET. PO SCH (10:36)
[2016-12-02] MEDS: ISOSORBIDE MONONITRATE ER 30 MG TAB.ER.24H PO SCH (10:36)
[2016-12-02] MEDS: HYDRALAZINE 50 MG TABLET PO SCH ×3 (10:36→21:27)
[2016-12-02] MEDS: PANTOPRAZOLE 40 MG TABLET. PO SCH (10:37)
[2016-12-02] MEDS: LACTOBACILLUS ACIDOPH & BULGAR 1 TABLET. PO SCH ×3 (10:37→17:53)
[2016-12-02] MEDS: ASPIRIN ENTERIC COATED 81 MG TABLET.DR. PO SCH (10:37)
[2016-12-02] MEDS: CARVEDILOL 12.5 MG TABLET PO SCH ×2 (10:37→17:53)
[2016-12-02] MEDS: SEVELAMER CARBONATE 800 MG TABLET. PO SCH ×3 (10:37→17:53)
[2016-12-02] MEDS: FUROSEMIDE 80 MG TABLET PO SCH ×3 (10:38→17:53)
[2016-12-02] MEDS: ACYCLOVIR 200 MG CAPSULE PO SCH ×2 (10:38→21:28)
[2016-12-02] MEDS: LORAZEPAM 1 MG TABLET. PO PRN ×2 (10:38→17:54)
[2016-12-02] MEDS: LISINOPRIL 10 MG TABLET PO SCH (10:38)
[2016-12-02] MEDS: HYDROCODONE/APAP 7.5/325MG TABLET. PO PRN ×3 (10:40→21:37)
[2016-12-02 11:00] VITALS: BP 154/94
[2016-12-02] MEDS ORDERED: PANT40TA5 PO (12:36)
[2016-12-02] MEDS ORDERED: MONT10TA9 PO (12:36)
[2016-12-02] MEDS ORDERED: CARV12.52 PO (12:36)
[2016-12-02] MEDS ORDERED: ASPI81TA9 PO (12:47)
[2016-12-02] MEDS ORDERED: LEVO100T PO (12:47)
[2016-12-02] MEDS ORDERED: CLON1PAT2 TD (12:47)
--- NOTE | 2016-12-02 12:49 | PDOC ---
Provider Note Provider Note discharge dictated # [id number] Aden ELLIOTT MD Dec 02, 2016 12:49
[2016-12-02 15:26] VITALS: BP 145/79
--- NOTE | 2016-12-02 16:22 | PDOC ---
Provider Note Provider Note discharge cancelled as she will not have help at home today so will continue current therapy as inpatient, she was frustrated earlier when she stated she wanted to go home but since realized she is not capable of being discharged at her current level of function Aden ELLIOTT MD Dec 02, 2016 16:22
[2016-12-02 19:00] VITALS: BP 164/88
[2016-12-02] MEDS: DIPHENHYDRAMINE HCL 25 MG CAPSULE PO SCH (21:25)
[2016-12-02] MEDS: CETIRIZINE HCL 10 MG TABLET PO SCH (21:25)
[2016-12-02] MEDS: AMLODIPINE BESYLATE 10 MG TABLET PO SCH (21:26)
[2016-12-02] MEDS: PAROXETINE 20 MG TABLET. PO SCH (21:27)
[2016-12-02] MEDS: MONTELUKAST SODIUM 10 MG TABLET. PO SCH (21:30)
[2016-12-02 23:00] VITALS: BP 136/78
--- NOTE | 2016-12-02 23:33 | DS ---
DATE OF DISCHARGE: 12/02/2016 ADMISSION DIAGNOSES: Acute on chronic diastolic heart failure with acute COPD exacerbation. Her heart failure is due to valvular heart disease. HISTORY: This is a 41-year-old white female with end-stage renal disease and multiple myeloma, undergoing chemo treatment, who developed shortness of breath and was diagnosed at admission with a COPD exacerbation, but also had an acute exacerbation of her heart failure. Her EF dropped from baseline of nearly 50% down to 25% per echo. Meds were adjusted and stress MPI was done as her enzymes were also slightly elevated. Her stress MPI did not show any ischemic changes and her EF was back to nearly 50%. She received dialysis Sunday, Sunday, Sunday and Sunday; while here the Sunday was an extra dialysis. She had pleural fluid from her heart failure that required a thoracentesis and her breathing improved significantly after that. Her myeloma treatment continued. Dr. Gordon saw her in consultation. Renal saw her in consultation for dialysis. Cardiology saw her in consultation for her heart failure. Carvedilol was added. Pulmonary saw her and Singulair has been added. She was on IV steroids, is being tapered to Medrol Dose Pack. She was on neb treatments and budesonide. She will resume her Advair and ProAir at home. She has had some flare of her irritable bowel symptoms and has had some nausea that was thought to be due to her fentanyl. She is off the fentanyl and on pain pills now. She is still having some irritable bowel symptoms. Protonix has been added. Labs show chronic stable anemia with her chronically elevated MCV. INR was 1.1. Chemistries show end-stage renal disease with normal electrolytes. She was newly diagnosed with hypothyroidism and levothyroxine 100 mcg has been added. Her thoracentesis fluid was unremarkable. Flu testing was negative. Imaging studies show her nuclear medicine scan did show no evidence of ischemia or infarct. EF was calculated at 54%. Chest x-ray showed no complications from her left sided thoracentesis. She was also seen in consultation by surgery. She had a biopsy of right flank mass, results of which are pending. She will be discharged home on carvedilol 25 mg b.i.d. with meals, Singulair 10 mg 1 at bedtime, Protonix 40 mg each evening, levothyroxine 100 mcg daily which are all new, she will continue the Tylenol p.r.n. Her Maren-Bid caplet t.i.d. with meals, acyclovir 200 mg b.i.d., ProAir inhaler q. 6 hours p.r.n. wheezing, amlodipine 10 mg daily, Aranesp weekly with dialysis 60 mcg, Flector patch b.i.d. as needed, dicyclomine 20 mg t.i.d. p.r.n. diarrhea, Benadryl 50 mg at bedtime, Advair 250/50 one puff b.i.d., Renagel capsule 1 daily, furosemide 80 mg t.i.d., [place] 7.5/325 one q. 4 hours p.r.n. pain, isosorbide mononitrate extended release 30 mg daily, EMLA cream topically as needed, lisinopril 10 mg daily, Loperamide 2 mg p.r.n. diarrhea, loratadine 10 mg at bedtime, lorazepam 1 mg q.6h. p.r.n., methocarbamol 750 two tabs q.i.d. p.r.n., Zofran 8 mg q.i.d. p.r.n. nausea and vomiting, paroxetine 20 mg daily, Renvela 2 tablets t.i.d. Her clonidine tablets have been stopped, clonidine patch TTS-2 is added. She will follow up in the office with Dr. Howard within the next two weeks. She will continue her Sunday, Sunday, Sunday dialysis. Continue her renal diet. Await her biopsy. Follow up with surgery. W Armand ELLIOTT MD DR: SHIRA/dejuan JOB#: [id number] / [id number]
[2016-12-03] VITALS (15 sets, daily range): BP systolic 110–169; BP diastolic 62–99
[2016-12-03] MEDS: methylPREDNISolone SOD SUCC PF 40 MG/ML VIAL. IV SCH ×3 (00:24→12:00)
[2016-12-03] MEDS: LORAZEPAM 1 MG TABLET. PO PRN ×2 (00:30→21:06)
[2016-12-03] MEDS: BUDESONIDE 0.5 MG/2 ML NEBU NEB SCH ×2 (05:58→20:17)
[2016-12-03 06:18] LABS: INR 1.5 (0.8-1.1); PROTHROMBIN TIME PATIENT 16.8 SEC (11.7-14.0)
[2016-12-03 06:33] LABS: HEMOGLOBIN 6.7 g/dL (12.0-15.5)
[2016-12-03 06:40] LABS: ALBUMIN 2.8 g/dL (3.4-5.0); CALCIUM 8.5 mg/dL (8.5-10.1); CREATININE 5.3 mg/dL (0.6-1.0); GFR 8.9; PHOSPHORUS 7.7 mg/dL (2.6-4.7)
[2016-12-03 06:42] LABS: POTASSIUM 5.8 mmol/L (3.5-5.1)
[2016-12-03] MEDS: LEVOTHYROXINE 100 MCG TABLET PO SCH (06:49)
[2016-12-03] MEDS: PANTOPRAZOLE 40 MG TABLET. PO SCH (07:30)
[2016-12-03] MEDS: SEVELAMER CARBONATE 800 MG TABLET. PO SCH ×3 (08:00→17:00)
[2016-12-03] MEDS: LACTOBACILLUS ACIDOPH & BULGAR 1 TABLET. PO SCH ×3 (08:00→17:00)
[2016-12-03] MEDS ORDERED: PANTOPRAZOLE IV PUSH 40 MG VIAL. IVP SCH (08:00)
[2016-12-03] MEDS: PANTOPRAZOLE SODIUM IV 80 MG in IV NORMAL SALINE 100ML 100 ML IV SCH ×2 (08:00→18:57)
[2016-12-03] MEDS: ASPIRIN ENTERIC COATED 81 MG TABLET.DR. PO SCH (08:00)
[2016-12-03] MEDS: CARVEDILOL 12.5 MG TABLET PO SCH ×3 (08:00→21:06)
--- NOTE | 2016-12-03 08:15 | PDOC2 ---
CONSULT Date of Consult Date of Consult DATE: 12/03/16 TIME: 08:10 Reason for Consult Reason for Consult: Melena/acute blood loss anemia Past Medical History Cardiovascular: HTN Pulmonary: Asthma, Pneumonia, Other CENTRAL NERVOUS SYSTEM: Other GI: GERD, Hemorrhoids, Irritable bowel disease Heme/Onc: Anemia NOS, Cancer Hepatobiliary: No pertinent hx Psych: Anxiety, Depression Musculoskeletal: Osteoarthritis, Other Rheumatologic: Fibromyalgia Infectious disease: Other Renal/: Chronic renal failure, Urinary Incontinence Endocrine: Hyperparathyroidism Past Surgical History Past Surgical History: Cholecystectomy, Tubal Ligation, Other Family History Family History: Hypertension Social History No ALCOHOL: none Drugs: None Lives: with Family Current Problem List Problem List Problems Medical Problems: (1) Accelerated hypertension Status: Acute (2) Acute on chronic diastolic congestive heart failure due to valvular disease Status: Acute (3) Bilateral pleural effusion Status: Acute (4) Cardiomyopathy Status: Acute (5) COPD with acute exacerbation Status: Acute (6) End stage renal disease Status: Acute Current Medications Current Medications Current Medications Sodium Chloride (Iv Sodium Chloride 0.9% 1000ml Bag) 1,000 ml @ 100 mls/hr Q10H IV Last administered on 11/27/16 19:49; Start 11/27/16 at 19:01; Stop at 05:00; Status DC Albuterol/ Ipratropium (Duoneb) 6 ml 1X ONCE NEB Last administered on 19:10; Start 11/27/16 at 19:30; Stop 11/27/16 at 19:31; Status DC Methylprednisolone Sodium Succinate (Solu-Medrol 125mg Vial) 125 mg 1X ONCE IV Last administered on 11/27/16 19:49; Start 11/27/16 at 19:30; Stop 11/27/16 at 19:31; Status DC Acetaminophen/ Hydrocodone Bitart (Lortab 7.5/325) 1 tab 1X ONCE PO Last administered on 11/27/16 20:29; Start 11/27/16 at 20:15; Stop 11/27/16 at 20:17; Status DC Lisinopril (Prinivil) 10 mg 1X ONCE PO Last administered on 11/27/16 21:09; Start 11/27/16 at 21:15; Stop 11/27/16 at 21:16; Status DC Amlodipine Besylate (Norvasc) 10 mg 1X ONCE PO Last administered on 11/27/16 21:08; Start 11/27/16 at 21:15; Stop 11/27/16 at 21:16; Status DC Clonidine HCl (Catapres) 0.3 mg 1X ONCE PO Last administered on 11/27/16 21:09 ; Start 11/27/16 at 21:15; Stop 11/27/16 at 21:16; Status DC Ondansetron HCl (Zofran) 4 mg PRN Q8HRS PRN IV NAUSEA/VOMITING Last administered on 11/28/16 18:24; Start 11/27/16 at 22:30; Stop 11/28/16 at 22:29; Status DC Fentanyl Citrate (Fentanyl 2ml Vial) 50 mcg PRN Q2HR PRN IV SEVERE PAIN Last administered on 11/28/16 21:31; Start 11/27/16 at 22:30; Stop 11/28/16 at 22:29; Status DC Acetaminophen (Tylenol) 650 mg PRN Q4HRS PRN PO FEVER; Start 11/27/16 at 22:30; Stop 11/28/16 at 22:29; Status DC Albuterol/ Ipratropium (Duoneb) 3 ml RTQID NEB Last administered on 11/29/16 06 :06; Start 11/28/16 at 08:00; Stop 11/29/16 at 07:59; Status DC Methylprednisolone Sodium Succinate (Solu-Medrol 40mg Vial) 60 mg Q6HRS IV Last administered on 12/03/16 00:24; Start 11/28/16 at 00:00 Diphenhydramine HCl (Benadryl) 25 mg 1X ONCE IVP Last administered on 23:30; Start 11/27/16 at 23:00; Stop 11/27/16 at 23:01; Status DC Diphenhydramine HCl (Benadryl) 25 mg PRN Q6HRS PRN IVP ITCHING Last administered on 12/02/16 02:37; Start 11/28/16 at 02:00 Albuterol Sulfate (Ventolin Neb Soln) 2.5 mg PRN Q4HRS PRN NEB SHORTNESS OF BREATH Last administered on 12/02/16 12:23; Start 11/28/16 at 05:15 Acetaminophen (Tylenol) 500 mg PRN Q6HRS PRN PO PAIN Last administered on 06:13; Start 11/28/16 at 07:15 Lactobacillus Acidophilus (Bacid, Maren-Bid) 1 tab TIDWMEALS PO Last administered on 12/02/16 17:53; Start 11/28/16 at 08:00 Acyclovir (Zovirax) 200 mg BID PO Last administered on 12/02/16 21:28; Start 11/28/16 at 09:00 Amlodipine Besylate (Norvasc) 10 mg HS PO Last administered on 12/02/16 21:26 ; Start 11/28/16 at 21:00 Clonidine HCl (Catapres) 0.3 mg TID PO Last administered on 11/28/16 20:54; Start 11/28/16 at 09:00; Stop 11/29/16 at 14:02; Status DC Darbepoetin Apolinar (Aranesp) 60 mcg Tu SQ Last administered on 11/28/16 20:53; Start 11/28/16 at 21:00 Diclofenac Epolamine (Flector) 1 patch BID TD ; Start 11/28/16 at 09:00; Stop 11/28/16 at 14:38; Status DC Furosemide (Lasix) 80 mg TID@,,17 PO Last administered on 12/02/16 17:53; Start 11/28/16 at 09:00 Acetaminophen/ Hydrocodone Bitart (Lortab 7.5/325) 1 tab PRN Q4HRS PRN PO SEVERE PAIN Last administered on 12/02/16 21:37; Start 11/28/16 at 07:15 Isosorbide Mononitrate (Imdur) 30 mg DAILY PO Last administered on 12/02/16 10 :36; Start 11/28/16 at 09:00 Lidocaine/ Prilocaine (Emla) 1 oniel PRN QID PRN TP pain; Start 11/28/16 at 07:15 Lisinopril (Prinivil) 10 mg DAILY PO Last administered on 12/02/16 10:38; Start 11/28/16 at 09:00 Loperamide HCl (Imodium) 2 mg PRN Q15MIN PRN PO DIARRHEA; Start 11/28/16 at 07: 15 Lorazepam (Ativan) 1 mg PRN Q6HRS PRN PO VOMITING Last administered on 00:30; Start 11/28/16 at 07:15 Methocarbamol (Robaxin) 1,500 mg PRN QID PRN PO SEVERE PAIN Last administered on 11/30/16 23:37; Start 11/28/16 at 07:15 Paroxetine HCl (Paxil) 20 mg QHS PO Last administered on 12/02/16 21:27; Start 11/28/16 at 21:00 Sevelamer Carbonate (Renvela) 800 mg TIDWMEALS PO Last administered on 17:53; Start 11/28/16 at 08:00 Dicyclomine HCl (Bentyl) 20 mg PRN TID PRN PO Stomach pain Last administered on 11/28/16 09:02; Start 11/28/16 at 07:45 Diphenhydramine HCl (Benadryl) 50 mg QHS PO Last administered on 12/02/16 21: 25; Start 11/28/16 at 21:00 Non-Formulary Medication 2 puff DAILY IH ; Start 11/28/16 at 09:00; Stop 11/28/16 at 09:00; Status DC Folic Acid/ Multivitamins/Vit B12 (Nephro-Sheree) 1 tab DAILY PO Last administered on 12/02/16 10:36; Start 11/28/16 at 09:00 Cetirizine HCl (Zyrtec) 10 mg QHS PO Last administered on 12/02/16 21:25; Start 11/28/16 at 21:00 Non-Formulary Medication 8 mg PRN BID PRN PO NAUSEA/VOMITING; Start 11/28/16 at 07:15; Stop 11/30/16 at 10:18; Status DC Budesonide 0.5 mg 0.5 mg RTBID NEB Last administered on 12/03/16 05:58; Start 11/28/16 at 08:00 Magnesium Sulfate/ Dextrose (Magnesium Sulfate PREMIX 2GM) 50 ml @ 25 mls/hr PRN DAILY PRN IV for Mag < 1.7 on am labs; Start 11/28/16 at 10:45 Hydralazine HCl (Apresoline) 50 mg TID PO ; Start 11/28/16 at 14:00; Stop at 15:49; Status DC Hydralazine HCl (Apresoline) 10 mg PRN Q4HRS PRN IVP ELEVATED BP, SEE COMMENTS Last administered on 11/30/16 14:19; Start 11/28/16 at 12:00 Hydralazine HCl 25 mg 25 mg TID PO Last administered on 11/30/16 14:14; Start 11/28/16 at 21:00; Stop 11/30/16 at 15:13; Status DC Sodium Chloride (Iv Sodium Chloride 0.9% 1000ml Bag) 1,000 ml @ 1,000 mls/hr Q1H PRN IV hypotension; Start 11/29/16 at 08:51; Stop 11/29/16 at 14:50; Status DC Diphenhydramine HCl (Benadryl) 25 mg 1X PRN PRN IV ITCHING; Start 11/29/16 at 09 :00; Stop 11/30/16 at 08:59; Status DC Diphenhydramine HCl (Benadryl) 25 mg 1X PRN PRN IV ITCHING; Start 11/29/16 at 09 :00; Stop 11/30/16 at 08:59; Status DC Info (PHARMACY MONITORING -- do not chart) 1 each PRN DAILY PRN MC SEE COMMENTS ; Start 11/29/16 at 09:00 Info (PHARMACY MONITORING -- do not chart) 1 each PRN DAILY PRN MC SEE COMMENTS ; Start 11/29/16 at 09:00; Status UNV Fentanyl Citrate (Fentanyl 2ml Vial) 25 mcg PRN Q5MIN PRN IV MILD PAIN; Start 11/29/16 at 09:30; Stop 11/30/16 at 03:58; Status DC Fentanyl Citrate 50 mcg 50 mcg PRN Q5MIN PRN IV MODERATE PAIN Last administered on 11/29/16 17:38; Start 11/29/16 at 09:30; Stop 11/30/16 at 03:58; Status DC Lactated Ringer's (Iv Lactated Ringers) 1,000 ml @ 0 mls/hr Q0M IV ; Start 11/29 at 09:16; Stop 11/29/16 at 21:15; Status DC Lidocaine HCl 2 ml 1X PRN PRN ID IV START; Start 11/29/16 at 09:30; Stop at 03:58; Status DC Prochlorperazine Edisylate (Compazine) 5 mg PACU PRN PRN IV NAUSEA; Start at 09:30; Stop 11/30/16 at 03:58; Status DC Fentanyl Citrate (Fentanyl 2ml Vial) 50 mcg PRN Q2HR PRN IV PAIN Last administered on 12/01/16 13:31; Start 11/29/16 at 10:30; Stop 12/01/16 at 17:25 ; Status DC Ondansetron HCl (Zofran) 4 mg PRN Q6HRS PRN IV NAUSEA/VOMITING Last administered on 11/29/16 10:59; Start 11/29/16 at 10:30; Stop 11/29/16 at 14:41; Status DC Lidocaine/Sodium Bicarbonate (Buffered Lidocaine 1%) 3 ml 1X ONCE IJ Last administered on 11/29/16 14:32; Start 11/29/16 at 12:45; Stop 11/29/16 at 12:46; Status DC Bupivacaine HCl/ Epinephrine Bitart (Sensorcain-Mpf Epi 0.5%-[id number]) 30 ml STK -MED ONCE .ROUTE Last administered on 11/29/16 16:47; Start 11/29/16 at 13:57; Stop 11/29/16 at 13:58; Status DC Carvedilol (Coreg) 12.5 mg BIDWMEALS PO Last administered on 11/30/16 09:29; Start 11/29/16 at 17:00; Stop 11/30/16 at 15:13; Status DC Clonidine HCl 1 patch 1 patch WEEKLY TD Last administered on 11/29/16 18:05; Start 11/29/16 at 14:30 Propofol (Diprivan) 20 ml @ As Directed STK-MED ONCE IV ; Start 11/29/16 at 14:14 ; Stop 11/29/16 at 14:15; Status DC Fentanyl Citrate (Fentanyl 2ml Vial) 100 mcg STK-MED ONCE .ROUTE ; Start at 14:14; Stop 11/29/16 at 14:15; Status DC Ondansetron HCl (Zofran) 4 mg STK-MED ONCE .ROUTE ; Start 11/29/16 at 14:14; Stop 11/29/16 at 14:15; Status DC Ondansetron HCl (Zofran) 8 mg PRN Q6HRS PRN IV NAUSEA/VOMITING Last administered on 12/01/16 18:12; Start 11/29/16 at 14:45 Midazolam HCl (Versed) 2 mg STK-MED ONCE .ROUTE ; Start 11/29/16 at 16:44; Stop 11/29/16 at 16:45; Status DC Pantoprazole Sodium (Protonix) 40 mg DAILYAC PO Last administered on 12/02/16 10:37; Start 11/30/16 at 09:30; Stop 12/03/16 at 07:43; Status DC Ondansetron HCl (Zofran Odt) 8 mg PRN BID PRN PO NAUSEA/VOMITING Last administered on 12/02/16 19:11; Start 11/30/16 at 10:30 Carvedilol (Coreg) 25 mg BIDWMEALS PO Last administered on 12/02/16 17:53; Start 11/30/16 at 17:00 Hydralazine HCl (Apresoline) 50 mg TID PO Last administered on 12/02/16 21:27 ; Start 11/30/16 at 15:30 Aspirin (Ecotrin) 81 mg DAILYWBKFT PO Last administered on 12/02/16 10:37; Start 11/30/16 at 16:00 Regadenoson (Lexiscan) 0.4 mg 1X ONCE IV Last administered on 12/01/16 09:28 ; Start 12/01/16 at 08:15; Stop 12/01/16 at 08:16; Status DC Levothyroxine Sodium 100 mcg 100 mcg DAILY07 PO Last administered on 12/02/16 06:12; Start 12/01/16 at 14:00 Sodium Chloride 1,000 ml @ 1,000 mls/hr Q1H PRN IV hypotension; Start 12/01/16 at 15:26; Stop 12/01/16 at 21:00; Status DC Sodium Chloride (Iv Sodium Chloride 0.9% 1000ml Bag) 1,000 ml @ 400 mls/hr Q2H30M PRN IV PATENCY; Start 12/01/16 at 15:26; Stop 12/01/16 at 21:00; Status DC Info (PHARMACY MONITORING -- do not chart) 1 each PRN DAILY PRN MC SEE COMMENTS ; Start 12/01/16 at 15:30; Status UNV Info (PHARMACY MONITORING -- do not chart) 1 each PRN DAILY PRN MC SEE COMMENTS ; Start 12/01/16 at 15:30; Status UNV Fentanyl Citrate (Fentanyl 2ml Vial) 50 mcg PRN Q4HRS PRN IV PAIN Last administered on 12/02/16 03:21; Start 12/01/16 at 17:30 Montelukast Sodium (Singulair) 10 mg QHS PO Last administered on 12/02/16 21: 30; Start 12/02/16 at 21:00 Pantoprazole Sodium 40 mg 40 mg DAILYAC IVP ; Start 12/03/16 at 08:00; Stop 10/07 at 08:00; Status DC Pantoprazole Sodium/Sodium Chloride (Protonix Iv/Iv Sodium Chloride 0.9% 100ml) 100 ml @ 10 mls/hr Q10H IV ; Start 12/03/16 at 08:00 Active Scripts Active Levaquin (Levofloxacin) 500 Mg Tablet 500 Mg PO Q48H Lisinopril 10 Mg Tablet 10 Mg PO DAILY 30 Days Hydrocodone-Apap 7.5-325 (Hydrocodone Bit/Acetaminophen) 1 Each Tablet 1 Tab PO PRN Q4HRS PRN 14 Days Flector (Diclofenac Epolamine) 1 Each Patch.td12 1 Patch TD BID 30 Days Aranesp Syringe (Darbepoetin Apolinar In Polysorbat) 60 Mcg/0.3 Ml Disp.syrin 60 Mcg SQ WEEKLYHS 30 Days Furosemide 80 Mg Tablet 80 Mg PO TID 30 Days Loperamide (Loperamide Hcl) 2 Mg Capsule 2 Mg PO PRN Q15MIN PRN 30 Days Isosorbide Mononitrate Er (Isosorbide Mononitrate) 30 Mg Tab.er.24h 30 Mg PO DAILY 30 Days Maren-Bid Caplet (Acidoph/L.bulg/Bif.b/S.thermop) 1 Each Tablet 1 Tab PO TIDWMEALS 30 Days Reported Lorazepam 1 Mg Tablet 1 Mg PO PRN Q6HRS PRN Renvela (Sevelamer Carbonate) 800 Mg Tablet 2 Tab PO TID Lidocaine-Prilocaine Cream (Lidocaine/Prilocaine) 30 Gm Cream..g. 1 Oniel TP UD Dicyclomine Hcl 20 Mg Tablet 1 Tab PO TID PRN Clonidine Hcl 0.3 Mg Tablet 0.3 Mg PO TID Amlodipine Besylate 10 Mg Tablet 10 Mg PO HS Renal Caps Softgel (Folic Acid/Vitamin B Comp W-C) 1 Mg Capsule 1 Cap PO DAILY Advair 250-50 Diskus (Fluticasone/Salmeterol) 1 Each Disk.w.dev 2 Puff IH DAILY Proair Hfa Inhaler (Albuterol Sulfate) 8.5 Gm Hfa.aer.ad 2 Puff INH PRN Q6HRS PRN Acyclovir 200 Mg Capsule 200 Mg PO BID Paroxetine Hcl 20 Mg Tablet 20 Mg PO QHS Nighttime Sleep Aid (Diphenhydramine Hcl) 50 Mg Capsule 50 Mg PO QHS Ondansetron Hcl 8 Mg Tablet 8 Mg PO BID PRN Methocarbamol 750 Mg Tablet 1,500 Mg PO QID PRN Tylenol Extra Strength (Acetaminophen) 500 Mg Tablet 500 Mg PO Q6HRS PRN Claritin (Loratadine) 10 Mg Capsule 10 Mg PO HS Allergies Allergies: Coded Allergies: Sulfa (Sulfonamide Antibiotics) (Verified Allergy, Intermediate, Hives, 11/29/16) sucralose (Verified Allergy, Intermediate, hives & itching, 11/29/16) codeine (Verified Adverse Reaction, Intermediate, ITCHING, PREVIOUSLY TOLERATED DILAUDID, 11/29/16) Vitals VITALS Vital Signs Date Time Temp Pulse Resp B/P Pulse Ox O2 Delivery O2 Flow Rate FiO2 12/03/16 07:06 98.6 82 14 116/66 99 Nasal Cannula 2.5 98.6 Labs Labs Laboratory Tests Test 12/02/16 04:40 12/03/16 04:10 12/03/16 05:45 12/03/16 06:00 Sodium Level 137mmol/L (136-145) 139mmol/L (136-145) Potassium Level 3.9mmol/L (3.5-5.1) 5.8mmol/L (3.5-5.1) Chloride Level 98mmol/L (98-107) 99mmol/L (98-107) Carbon Dioxide Level 29mmol/L (21-32) 26mmol/L (21-32) Anion Gap 10 (6-14) 14 (6-14) Blood Urea Nitrogen 44mg/dL (7-20) 86mg/dL (7-20) Creatinine 3.9mg/dL (0.6-1.0) 5.3mg/dL (0.6-1.0) Estimated GFR (Cockcroft-Gault) 12.7 8.9 Glucose Level 127mg/dL (70-99) 133mg/dL (70-99) Calcium Level 8.5mg/dL (8.5-10.1) 8.5mg/dL (8.5-10.1) Phosphorus Level 5.6mg/dL (2.6-4.7) 7.7mg/dL (2.6-4.7) Magnesium Level 2.0mg/dL (1.8-2.4) 1.9mg/dL (1.8-2.4) Albumin 3.2g/dL (3.4-5.0) 2.8g/dL (3.4-5.0) Prothrombin Time 16.8SEC (11.7-14.0) Prothromb Time International Ratio 1.5 (0.8-1.1) Hemoglobin 6.7g/dL (12.0-15.5) Hematocrit 22.0% (36.0-47.0) Mean Corpuscular Hemoglobin Concent 30g/dL (31-37) Laboratory Tests Test 12/03/16 04:10 12/03/16 05:45 12/03/16 06:00 Sodium Level 139mmol/L (136-145) Potassium Level 5.8mmol/L (3.5-5.1) Chloride Level 99mmol/L (98-107) Carbon Dioxide Level 26mmol/L (21-32) Anion Gap 14 (6-14) Blood Urea Nitrogen 86mg/dL (7-20) Creatinine 5.3mg/dL (0.6-1.0) Estimated GFR (Cockcroft-Gault) 8.9 Glucose Level 133mg/dL (70-99) Calcium Level 8.5mg/dL (8.5-10.1) Phosphorus Level 7.7mg/dL (2.6-4.7) Magnesium Level 1.9mg/dL (1.8-2.4) Albumin 2.8g/dL (3.4-5.0) Prothrombin Time 16.8SEC (11.7-14.0) Prothromb Time International Ratio 1.5 (0.8-1.1) Hemoglobin 6.7g/dL (12.0-15.5) Hematocrit 22.0% (36.0-47.0) Mean Corpuscular Hemoglobin Concent 30g/dL (31-37) Assessment/Plan Assessment/Plan Melena- with acute blood loss anemia, S/P gastric bypass and ESRD/multiple myeloma. Aspirin induced PUD leads differential. Anastomotic ulcer from prior gastric bypass, AVMs, Poe's, diverticular disease, and/or ischemic colitis in differential as well as malignancy. Plan PPI drip/transfusional support EGD to further assess. If unrevealing, bleeding scan/CTA possible to follow. Full note dictatedi JESE CARTER MD Dec 03, 2016 08:15
[2016-12-03] MEDS: ISOSORBIDE MONONITRATE ER 30 MG TAB.ER.24H PO SCH (08:40)
[2016-12-03] MEDS: HYDRALAZINE 50 MG TABLET PO SCH ×3 (08:40→21:11)
[2016-12-03] MEDS: FUROSEMIDE 80 MG TABLET PO SCH ×4 (08:40→21:06)
[2016-12-03] MEDS: FOLIC/VIT B COMP W-C (RENAL) TABLET. PO SCH (08:40)
[2016-12-03] MEDS: ACYCLOVIR 200 MG CAPSULE PO SCH ×2 (08:41→21:04)
[2016-12-03] MEDS: LISINOPRIL 10 MG TABLET PO SCH (08:41)
[2016-12-03] MEDS ORDERED: PROPOFOL 20 ML IV ONE (09:23)
[2016-12-03] MEDS ORDERED: EPHEDRINE PF IN SALINE 50 MG/5 ML DISP.SYRIN. IV ONE (09:24)
[2016-12-03] MEDS ORDERED: LIDOCAINE 2% PF Vial for OR 5 ML VIAL. ONE (09:24)
--- NOTE | 2016-12-03 10:22 | PDOC4 ---
Operative Note Operative Note EGD with therapeutic control of bleeding Meds propofol 180 mg iv Pre-op dx acute blood loss anemia/melena post-op dx s/p gastric bypass gastric ulcer below GE junction S/p cautery/endo-clip/ epi injection with cessation of bleeding Plan PPI therapy transfusional support serial cbcs npo for 48 hours JESE CARTER MD Dec 03, 2016 10:21
[2016-12-03] MEDS: ONDANSETRON PF 4 MG/2 ML VIAL. IV PRN ×2 (11:50→18:58)
[2016-12-03 12:40] LABS: BASO % 0 % (0-3); EOS % 0 % (0-3); LYMPH % 8 % (24-48); MEAN CORPUSCULAR HEMOGLOBIN 32 pg (25-35); MEAN CORPUSCULAR HGB CONC 31 g/dL (31-37); MEAN CORPUSCULAR VOLUME 103 fL (79-100); MONO % 5 % (0-9); NEUT % 87 % (31-73); PLATELET COUNT 152 x10^3/uL (140-400); RED BLOOD COUNT 1.27 x10^6/uL (3.50-5.40); RED CELL DISTRIBUTION WIDTH 20.5 % (11.5-14.5); WHITE BLOOD COUNT 10.2 x10^3/uL (4.0-11.0)
[2016-12-03 12:41] LABS: LYMPH # 0.8 x10^3/uL (1.0-4.8)
[2016-12-03 12:47] LABS: HEMATOCRIT 13.1 % (36.0-47.0); HEMOGLOBIN 4.1 g/dL (12.0-15.5)
--- NOTE | 2016-12-03 13:15 | PDOC ---
PROGRESS NOTES Subjective Subjective I was notified about 5 am of her having rectal bleeding and CBC obtained and GI consulted and blood transfusion was ordered and she went for an EGD and active bleeding was found in her stomach. It was stopped with epi and stapled by Dr. Quintero. She has been on steroids for her COPD exac which are stopped but also was on protonix orally for ulcer prophylaxis. She has been having some abdominal discomfort and nausea that she was attributing to gas the past few days but has not had any vomiting. 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 Objective Objective Vital Signs Date Time Temp Pulse Resp B/P Pulse Ox O2 Delivery O2 Flow Rate FiO2 12/03/16 12:50 97.4 89 16 122/68 97.4 12/03/16 10:48 100 Nasal Cannula 3 Intake and Output 12/03/16 07:00 Intake Total 790 ml Output Total 751 ml Balance 39 ml Intake Oral 790 ml Stool Total 1 ml Estimated Blood Loss 750 ml # Voids 4 Physical Exam Abdomen: Soft Heart: Regular rate Extremities: Other (pale) General: Alert, Oriented X3, Cooperative Lungs: Clear to auscultation MUSCULOSKELETAL: No swelling Neck: Supple Psych/Mental Status: Mood NL Skin: Other (healing biopsy site right flank) Assessment Assessment Problems Medical Problems: (1) Acute upper GI bleed, bleeding site found on EGD and treated, hemodynamically stable Status: Acute (2) acute blood loss anemia - being transfused but access issues and will send her to dialysis for completion Status: Acute (3) Bilateral pleural effusion - s/p left sided thoracentesis Status: Acute (4) Cardiomyopathy - with resolved acute CHF Status: Acute (5) COPD with acute exacerbation - will stop steroids due to GI bleed (no taper) Status: Acute (6) End stage renal disease - extra dialysis today for blood Status: Acute Comment Review of Relevant I have reviewed the following items ernesto (where applicable) has been applied. Labs Laboratory Tests Test 12/02/16 04:40 12/03/16 04:10 12/03/16 05:45 12/03/16 06:00 Sodium Level 137mmol/L (136-145) 139mmol/L (136-145) Potassium Level 3.9mmol/L (3.5-5.1) 5.8mmol/L (3.5-5.1) Chloride Level 98mmol/L (98-107) 99mmol/L (98-107) Carbon Dioxide Level 29mmol/L (21-32) 26mmol/L (21-32) Anion Gap 10 (6-14) 14 (6-14) Blood Urea Nitrogen 44mg/dL (7-20) 86mg/dL (7-20) Creatinine 3.9mg/dL (0.6-1.0) 5.3mg/dL (0.6-1.0) Estimated GFR (Cockcroft-Gault) 12.7 8.9 Glucose Level 127mg/dL (70-99) 133mg/dL (70-99) Calcium Level 8.5mg/dL (8.5-10.1) 8.5mg/dL (8.5-10.1) Phosphorus Level 5.6mg/dL (2.6-4.7) 7.7mg/dL (2.6-4.7) Magnesium Level 2.0mg/dL (1.8-2.4) 1.9mg/dL (1.8-2.4) Albumin 3.2g/dL (3.4-5.0) 2.8g/dL (3.4-5.0) Prothrombin Time 16.8SEC (11.7-14.0) Prothromb Time International Ratio 1.5 (0.8-1.1) Hemoglobin 6.7g/dL (12.0-15.5) Hematocrit 22.0% (36.0-47.0) Mean Corpuscular Hemoglobin Concent 30g/dL (31-37) Test 12/03/16 12:25 White Blood Count 10.2x10^3/uL (4.0-11.0) Red Blood Count 1.27x10^6/uL (3.50-5.40) Hemoglobin 4.1g/dL (12.0-15.5) Hematocrit 13.1% (36.0-47.0) Mean Corpuscular Volume 103fL (79-100) Mean Corpuscular Hemoglobin 32pg (25-35) Mean Corpuscular Hemoglobin Concent 31g/dL (31-37) Red Cell Distribution Width 20.5% (11.5-14.5) Platelet Count 152x10^3/uL (140-400) Neutrophils (%) (Auto) 87% (31-73) Lymphocytes (%) (Auto) 8% (24-48) Monocytes (%) (Auto) 5% (0-9) Eosinophils (%) (Auto) 0% (0-3) Basophils (%) (Auto) 0% (0-3) Neutrophils # (Auto) 8.9x10^3uL (1.8-7.7) Lymphocytes # (Auto) 0.8x10^3/uL (1.0-4.8) Monocytes # (Auto) 0.5x10^3/uL (0.0-1.1) Eosinophils # (Auto) 0.0x10^3/uL (0.0-0.7) Basophils # (Auto) 0.0x10^3/uL (0.0-0.2) Laboratory Tests Test 12/03/16 04:10 12/03/16 05:45 12/03/16 06:00 12/03/16 12:25 Sodium Level 139mmol/L (136-145) Potassium Level 5.8mmol/L (3.5-5.1) Chloride Level 99mmol/L (98-107) Carbon Dioxide Level 26mmol/L (21-32) Anion Gap 14 (6-14) Blood Urea Nitrogen 86mg/dL (7-20) Creatinine 5.3mg/dL (0.6-1.0) Estimated GFR (Cockcroft-Gault) 8.9 Glucose Level 133mg/dL (70-99) Calcium Level 8.5mg/dL (8.5-10.1) Phosphorus Level 7.7mg/dL (2.6-4.7) Magnesium Level 1.9mg/dL (1.8-2.4) Albumin 2.8g/dL (3.4-5.0) Prothrombin Time 16.8SEC (11.7-14.0) Prothromb Time International Ratio 1.5 (0.8-1.1) Hemoglobin 6.7g/dL (12.0-15.5) 4.1g/dL (12.0-15.5) Hematocrit 22.0% (36.0-47.0) 13.1% (36.0-47.0) Mean Corpuscular Hemoglobin Concent 30g/dL (31-37) 31g/dL (31-37) White Blood Count 10.2x10^3/uL (4.0-11.0) Red Blood Count 1.27x10^6/uL (3.50-5.40) Mean Corpuscular Volume 103fL (79-100) Mean Corpuscular Hemoglobin 32pg (25-35) Red Cell Distribution Width 20.5% (11.5-14.5) Platelet Count 152x10^3/uL (140-400) Neutrophils (%) (Auto) 87% (31-73) Lymphocytes (%) (Auto) 8% (24-48) Monocytes (%) (Auto) 5% (0-9) Eosinophils (%) (Auto) 0% (0-3) Basophils (%) (Auto) 0% (0-3) Neutrophils # (Auto) 8.9x10^3uL (1.8-7.7) Lymphocytes # (Auto) 0.8x10^3/uL (1.0-4.8) Monocytes # (Auto) 0.5x10^3/uL (0.0-1.1) Eosinophils # (Auto) 0.0x10^3/uL (0.0-0.7) Basophils # (Auto) 0.0x10^3/uL (0.0-0.2) Microbiology 11/29/16 Gram Stain - Final, Complete Medications Current Medications Sodium Chloride (Iv Sodium Chloride 0.9% 1000ml Bag) 1,000 ml @ 100 mls/hr Q10H IV Last administered on 11/27/16 19:49; Start 11/27/16 at 19:01; Stop at 05:00; Status DC Albuterol/ Ipratropium (Duoneb) 6 ml 1X ONCE NEB Last administered on 19:10; Start 11/27/16 at 19:30; Stop 11/27/16 at 19:31; Status DC Methylprednisolone Sodium Succinate (Solu-Medrol 125mg Vial) 125 mg 1X ONCE IV Last administered on 11/27/16 19:49; Start 11/27/16 at 19:30; Stop 11/27/16 at 19:31; Status DC Acetaminophen/ Hydrocodone Bitart (Lortab 7.5/325) 1 tab 1X ONCE PO Last administered on 11/27/16 20:29; Start 11/27/16 at 20:15; Stop 11/27/16 at 20:17; Status DC Lisinopril (Prinivil) 10 mg 1X ONCE PO Last administered on 11/27/16 21:09; Start 11/27/16 at 21:15; Stop 11/27/16 at 21:16; Status DC Amlodipine Besylate (Norvasc) 10 mg 1X ONCE PO Last administered on 11/27/16 21:08; Start 11/27/16 at 21:15; Stop 11/27/16 at 21:16; Status DC Clonidine HCl (Catapres) 0.3 mg 1X ONCE PO Last administered on 11/27/16 21:09 ; Start 11/27/16 at 21:15; Stop 11/27/16 at 21:16; Status DC Ondansetron HCl (Zofran) 4 mg PRN Q8HRS PRN IV NAUSEA/VOMITING Last administered on 11/28/16 18:24; Start 11/27/16 at 22:30; Stop 11/28/16 at 22:29; Status DC Fentanyl Citrate (Fentanyl 2ml Vial) 50 mcg PRN Q2HR PRN IV SEVERE PAIN Last administered on 11/28/16 21:31; Start 11/27/16 at 22:30; Stop 11/28/16 at 22:29; Status DC Acetaminophen (Tylenol) 650 mg PRN Q4HRS PRN PO FEVER; Start 11/27/16 at 22:30; Stop 11/28/16 at 22:29; Status DC Albuterol/ Ipratropium (Duoneb) 3 ml RTQID NEB Last administered on 11/29/16 06 :06; Start 11/28/16 at 08:00; Stop 11/29/16 at 07:59; Status DC Methylprednisolone Sodium Succinate (Solu-Medrol 40mg Vial) 60 mg Q6HRS IV Last administered on 12/03/16 00:24; Start 11/28/16 at 00:00 Diphenhydramine HCl (Benadryl) 25 mg 1X ONCE IVP Last administered on 23:30; Start 11/27/16 at 23:00; Stop 11/27/16 at 23:01; Status DC Diphenhydramine HCl (Benadryl) 25 mg PRN Q6HRS PRN IVP ITCHING Last administered on 12/02/16 02:37; Start 11/28/16 at 02:00 Albuterol Sulfate (Ventolin Neb Soln) 2.5 mg PRN Q4HRS PRN NEB SHORTNESS OF BREATH Last administered on 12/02/16 12:23; Start 11/28/16 at 05:15 Acetaminophen (Tylenol) 500 mg PRN Q6HRS PRN PO PAIN Last administered on 06:13; Start 11/28/16 at 07:15 Lactobacillus Acidophilus (Bacid, Maren-Bid) 1 tab TIDWMEALS PO Last administered on 12/02/16 17:53; Start 11/28/16 at 08:00 Acyclovir (Zovirax) 200 mg BID PO Last administered on 12/02/16 21:28; Start 11/28/16 at 09:00 Amlodipine Besylate (Norvasc) 10 mg HS PO Last administered on 12/02/16 21:26 ; Start 11/28/16 at 21:00 Clonidine HCl (Catapres) 0.3 mg TID PO Last administered on 11/28/16 20:54; Start 11/28/16 at 09:00; Stop 11/29/16 at 14:02; Status DC Darbepoetin Apolinar (Aranesp) 60 mcg Tu SQ Last administered on 11/28/16 20:53; Start 11/28/16 at 21:00 Diclofenac Epolamine (Flector) 1 patch BID TD ; Start 11/28/16 at 09:00; Stop 11/28/16 at 14:38; Status DC Furosemide (Lasix) 80 mg TID@, PO Last administered on 12/02/16 17:53; Start 11/28/16 at 09:00 Acetaminophen/ Hydrocodone Bitart (Lortab 7.5/325) 1 tab PRN Q4HRS PRN PO SEVERE PAIN Last administered on 12/02/16 21:37; Start 11/28/16 at 07:15 Isosorbide Mononitrate (Imdur) 30 mg DAILY PO Last administered on 12/02/16 10 :36; Start 11/28/16 at 09:00 Lidocaine/ Prilocaine (Emla) 1 oniel PRN QID PRN TP pain; Start 11/28/16 at 07:15 Lisinopril (Prinivil) 10 mg DAILY PO Last administered on 12/02/16 10:38; Start 11/28/16 at 09:00 Loperamide HCl (Imodium) 2 mg PRN Q15MIN PRN PO DIARRHEA; Start 11/28/16 at 07: 15 Lorazepam (Ativan) 1 mg PRN Q6HRS PRN PO VOMITING Last administered on 00:30; Start 11/28/16 at 07:15 Methocarbamol (Robaxin) 1,500 mg PRN QID PRN PO SEVERE PAIN Last administered on 11/30/16 23:37; Start 11/28/16 at 07:15 Paroxetine HCl (Paxil) 20 mg QHS PO Last administered on 12/02/16 21:27; Start 11/28/16 at 21:00 Sevelamer Carbonate (Renvela) 800 mg TIDWMEALS PO Last administered on 17:53; Start 11/28/16 at 08:00 Dicyclomine HCl (Bentyl) 20 mg PRN TID PRN PO Stomach pain Last administered on 11/28/16 09:02; Start 11/28/16 at 07:45 Diphenhydramine HCl (Benadryl) 50 mg QHS PO Last administered on 12/02/16 21: 25; Start 11/28/16 at 21:00 Non-Formulary Medication 2 puff DAILY IH ; Start 11/28/16 at 09:00; Stop 11/28/16 at 09:00; Status DC Folic Acid/ Multivitamins/Vit B12 (Nephro-Sheree) 1 tab DAILY PO Last administered on 12/02/16 10:36; Start 11/28/16 at 09:00 Cetirizine HCl (Zyrtec) 10 mg QHS PO Last administered on 12/02/16 21:25; Start 11/28/16 at 21:00 Non-Formulary Medication 8 mg PRN BID PRN PO NAUSEA/VOMITING; Start 11/28/16 at 07:15; Stop 11/30/16 at 10:18; Status DC Budesonide 0.5 mg 0.5 mg RTBID NEB Last administered on 12/03/16 05:58; Start 11/28/16 at 08:00 Magnesium Sulfate/ Dextrose (Magnesium Sulfate PREMIX 2GM) 50 ml @ 25 mls/hr PRN DAILY PRN IV for Mag < 1.7 on am labs; Start 11/28/16 at 10:45 Hydralazine HCl (Apresoline) 50 mg TID PO ; Start 11/28/16 at 14:00; Stop at 15:49; Status DC Hydralazine HCl (Apresoline) 10 mg PRN Q4HRS PRN IVP ELEVATED BP, SEE COMMENTS Last administered on 11/30/16 14:19; Start 11/28/16 at 12:00 Hydralazine HCl 25 mg 25 mg TID PO Last administered on 11/30/16 14:14; Start 11/28/16 at 21:00; Stop 11/30/16 at 15:13; Status DC Sodium Chloride (Iv Sodium Chloride 0.9% 1000ml Bag) 1,000 ml @ 1,000 mls/hr Q1H PRN IV hypotension; Start 11/29/16 at 08:51; Stop 11/29/16 at 14:50; Status DC Diphenhydramine HCl (Benadryl) 25 mg 1X PRN PRN IV ITCHING; Start 11/29/16 at 09 :00; Stop 11/30/16 at 08:59; Status DC Diphenhydramine HCl (Benadryl) 25 mg 1X PRN PRN IV ITCHING; Start 11/29/16 at 09 :00; Stop 11/30/16 at 08:59; Status DC Info (PHARMACY MONITORING -- do not chart) 1 each PRN DAILY PRN MC SEE COMMENTS ; Start 11/29/16 at 09:00 Info (PHARMACY MONITORING -- do not chart) 1 each PRN DAILY PRN MC SEE COMMENTS ; Start 11/29/16 at 09:00; Status UNV Fentanyl Citrate (Fentanyl 2ml Vial) 25 mcg PRN Q5MIN PRN IV MILD PAIN; Start 11/29/16 at 09:30; Stop 11/30/16 at 03:58; Status DC Fentanyl Citrate 50 mcg 50 mcg PRN Q5MIN PRN IV MODERATE PAIN Last administered on 11/29/16 17:38; Start 11/29/16 at 09:30; Stop 11/30/16 at 03:58; Status DC Lactated Ringer's (Iv Lactated Ringers) 1,000 ml @ 0 mls/hr Q0M IV ; Start 11/29 at 09:16; Stop 11/29/16 at 21:15; Status DC Lidocaine HCl 2 ml 1X PRN PRN ID IV START; Start 11/29/16 at 09:30; Stop at 03:58; Status DC Prochlorperazine Edisylate (Compazine) 5 mg PACU PRN PRN IV NAUSEA; Start at 09:30; Stop 11/30/16 at 03:58; Status DC Fentanyl Citrate (Fentanyl 2ml Vial) 50 mcg PRN Q2HR PRN IV PAIN Last administered on 12/01/16 13:31; Start 11/29/16 at 10:30; Stop 12/01/16 at 17:25 ; Status DC Ondansetron HCl (Zofran) 4 mg PRN Q6HRS PRN IV NAUSEA/VOMITING Last administered on 11/29/16 10:59; Start 11/29/16 at 10:30; Stop 11/29/16 at 14:41; Status DC Lidocaine/Sodium Bicarbonate (Buffered Lidocaine 1%) 3 ml 1X ONCE IJ Last administered on 11/29/16 14:32; Start 11/29/16 at 12:45; Stop 11/29/16 at 12:46; Status DC Bupivacaine HCl/ Epinephrine Bitart (Sensorcain-Mpf Epi 0.5%-1:[id number]) 30 ml STK -MED ONCE .ROUTE Last administered on 11/29/16 16:47; Start 11/29/16 at 13:57; Stop 11/29/16 at 13:58; Status DC Carvedilol (Coreg) 12.5 mg BIDWMEALS PO Last administered on 11/30/16 09:29; Start 11/29/16 at 17:00; Stop 11/30/16 at 15:13; Status DC Clonidine HCl 1 patch 1 patch WEEKLY TD Last administered on 11/29/16 18:05; Start 11/29/16 at 14:30 Propofol (Diprivan) 20 ml @ As Directed STK-MED ONCE IV ; Start 11/29/16 at 14:14 ; Stop 11/29/16 at 14:15; Status DC Fentanyl Citrate (Fentanyl 2ml Vial) 100 mcg STK-MED ONCE .ROUTE ; Start at 14:14; Stop 11/29/16 at 14:15; Status DC Ondansetron HCl (Zofran) 4 mg STK-MED ONCE .ROUTE ; Start 11/29/16 at 14:14; Stop 11/29/16 at 14:15; Status DC Ondansetron HCl (Zofran) 8 mg PRN Q6HRS PRN IV NAUSEA/VOMITING Last administered on 12/03/16 11:50; Start 11/29/16 at 14:45 Midazolam HCl (Versed) 2 mg STK-MED ONCE .ROUTE ; Start 11/29/16 at 16:44; Stop 11/29/16 at 16:45; Status DC Pantoprazole Sodium (Protonix) 40 mg DAILYAC PO Last administered on 12/02/16 10:37; Start 11/30/16 at 09:30; Stop 12/03/16 at 07:43; Status DC Ondansetron HCl (Zofran Odt) 8 mg PRN BID PRN PO NAUSEA/VOMITING Last administered on 12/02/16 19:11; Start 11/30/16 at 10:30 Carvedilol (Coreg) 25 mg BIDWMEALS PO Last administered on 12/02/16 17:53; Start 11/30/16 at 17:00 Hydralazine HCl (Apresoline) 50 mg TID PO Last administered on 12/02/16 21:27 ; Start 11/30/16 at 15:30 Aspirin (Ecotrin) 81 mg DAILYWBKFT PO Last administered on 12/02/16 10:37; Start 11/30/16 at 16:00 Regadenoson (Lexiscan) 0.4 mg 1X ONCE IV Last administered on 12/01/16 09:28 ; Start 12/01/16 at 08:15; Stop 12/01/16 at 08:16; Status DC Levothyroxine Sodium 100 mcg 100 mcg DAILY07 PO Last administered on 12/02/16 06:12; Start 12/01/16 at 14:00 Sodium Chloride 1,000 ml @ 1,000 mls/hr Q1H PRN IV hypotension; Start 12/01/16 at 15:26; Stop 12/01/16 at 21:00; Status DC Sodium Chloride (Iv Sodium Chloride 0.9% 1000ml Bag) 1,000 ml @ 400 mls/hr Q2H30M PRN IV PATENCY; Start 12/01/16 at 15:26; Stop 12/01/16 at 21:00; Status DC Info (PHARMACY MONITORING -- do not chart) 1 each PRN DAILY PRN MC SEE COMMENTS ; Start 12/01/16 at 15:30; Status UNV Info (PHARMACY MONITORING -- do not chart) 1 each PRN DAILY PRN MC SEE COMMENTS ; Start 12/01/16 at 15:30; Status UNV Fentanyl Citrate (Fentanyl 2ml Vial) 50 mcg PRN Q4HRS PRN IV PAIN Last administered on 12/02/16 03:21; Start 12/01/16 at 17:30 Montelukast Sodium (Singulair) 10 mg QHS PO Last administered on 12/02/16 21: 30; Start 12/02/16 at 21:00 Pantoprazole Sodium 40 mg 40 mg DAILYAC IVP ; Start 12/03/16 at 08:00; Stop 10/07 at 08:00; Status DC Pantoprazole Sodium 80 mg/ Sodium Chloride 100 ml @ 10 mls/hr Q10H IV Last administered on 12/03/16 08:00; Start 12/03/16 at 08:00 Propofol (Diprivan) 20 ml @ As Directed STK-MED ONCE IV ; Start 12/03/16 at 09: 23; Stop 12/03/16 at 09:24; Status DC Lidocaine HCl (Lidocaine Pf 2% Vial) 5 ml STK-MED ONCE .ROUTE ; Start 12/03/16 at 09:24; Stop 12/03/16 at 09:25; Status DC Ephedrine Sulfate 50 mg STK-MED ONCE IV ; Start 12/03/16 at 09:24; Stop at 09:25; Status DC Morphine Sulfate 2 mg PRN Q2HR PRN IV PAIN; Start 12/03/16 at 10:30 Active Scripts Active Levaquin (Levofloxacin) 500 Mg Tablet 500 Mg PO Q48H Lisinopril 10 Mg Tablet 10 Mg PO DAILY 30 Days Hydrocodone-Apap 7.5-325 (Hydrocodone Bit/Acetaminophen) 1 Each Tablet 1 Tab PO PRN Q4HRS PRN 14 Days Flector (Diclofenac Epolamine) 1 Each Patch.td12 1 Patch TD BID 30 Days Aranesp Syringe (Darbepoetin Apolinar In Polysorbat) 60 Mcg/0.3 Ml Disp.syrin 60 Mcg SQ WEEKLYHS 30 Days Furosemide 80 Mg Tablet 80 Mg PO TID 30 Days Loperamide (Loperamide Hcl) 2 Mg Capsule 2 Mg PO PRN Q15MIN PRN 30 Days Isosorbide Mononitrate Er (Isosorbide Mononitrate) 30 Mg Tab.er.24h 30 Mg PO DAILY 30 Days Maren-Bid Caplet (Acidoph/L.bulg/Bif.b/S.thermop) 1 Each Tablet 1 Tab PO TIDWMEALS 30 Days Reported Lorazepam 1 Mg Tablet 1 Mg PO PRN Q6HRS PRN Renvela (Sevelamer Carbonate) 800 Mg Tablet 2 Tab PO TID Lidocaine-Prilocaine Cream (Lidocaine/Prilocaine) 30 Gm Cream..g. 1 Oniel TP UD Dicyclomine Hcl 20 Mg Tablet 1 Tab PO TID PRN Clonidine Hcl 0.3 Mg Tablet 0.3 Mg PO TID Amlodipine Besylate 10 Mg Tablet 10 Mg PO HS Renal Caps Softgel (Folic Acid/Vitamin B Comp W-C) 1 Mg Capsule 1 Cap PO DAILY Advair 250-50 Diskus (Fluticasone/Salmeterol) 1 Each Disk.w.dev 2 Puff IH DAILY Proair Hfa Inhaler (Albuterol Sulfate) 8.5 Gm Hfa.aer.ad 2 Puff INH PRN Q6HRS PRN Acyclovir 200 Mg Capsule 200 Mg PO BID Paroxetine Hcl 20 Mg Tablet 20 Mg PO QHS Nighttime Sleep Aid (Diphenhydramine Hcl) 50 Mg Capsule 50 Mg PO QHS Ondansetron Hcl 8 Mg Tablet 8 Mg PO BID PRN Methocarbamol 750 Mg Tablet 1,500 Mg PO QID PRN Tylenol Extra Strength (Acetaminophen) 500 Mg Tablet 500 Mg PO Q6HRS PRN Claritin (Loratadine) 10 Mg Capsule 10 Mg PO HS Vitals/I & O Vital Sign - Last 24 Hours 12/02/16 12/02/16 12/02/16 12/02/16 13:46 15:26 17:53 19:00 Temp 97.9 98.1 97.9 98.1 Pulse 98 95 95 95 Resp 20 18 B/P 154/94 145/79 145/79 164/88 Pulse Ox 98 O2 Delivery Nasal Cannula Nasal Cannula O2 Flow Rate 3.0 2.5 12/02/16 12/02/16 12/02/16 12/02/16 20:00 21:26 21:27 21:37 Pulse 95 95 Resp 16 B/P 164/88 164/88 O2 Delivery Nasal Cannula Nasal Cannula O2 Flow Rate 2.0 2.0 12/02/16 12/02/16 12/02/16 12/03/16 22:37 23:00 23:10 03:00 Temp 97.5 97.9 97.5 97.9 Pulse 85 83 Resp 14 B/P 136/78 140/76 Pulse Ox 93 98 97 O2 Delivery Nasal Cannula Nasal Cannula Nasal Cannula Nasal Cannula O2 Flow Rate 2.0 2.5 2.0 2.5 12/03/16 12/03/16 12/03/16 12/03/16 05:59 07:06 08:00 09:09 Temp 98.6 98.6 Pulse 82 Resp 14 B/P 116/66 Pulse Ox 98 99 O2 Delivery Nasal Cannula Nasal Cannula Nasal Cannula Nasal Cannula O2 Flow Rate 2.0 2.5 3.0 2.5 12/03/16 12/03/16 12/03/16 12/03/16 09:09 10:12 10:24 10:48 Temp 97.2 97.5 97.5 97.5 97.2 97.5 97.5 97.5 Pulse 87 80 86 87 Resp 20 20 20 20 B/P 172/80 162/78 175/88 Pulse Ox 100 100 100 100 O2 Delivery Nasal Cannula Nasal Cannula Nasal Cannula O2 Flow Rate 3 3 3 12/03/16 12:50 Temp 97.4 97.4 Pulse 89 Resp 16 B/P 122/68 Intake and Output 12/02/16 12/02/16 12/03/16 15:00 23:00 07:00 Intake Total 340 ml 450 ml Output Total 1 ml 750 ml Balance 339 ml -300 ml Aden ELLIOTT MD Dec 03, 2016 13:15
--- NOTE | 2016-12-03 14:31 | PDOC ---
PROGRESS NOTES Subjective Subjective SEEN IN FOLLOW UP OF ESRD Objective Objective Vital Signs Date Time Temp Pulse Resp B/P Pulse Ox O2 Delivery O2 Flow Rate FiO2 12/03/16 13:06 97.6 90 24 136/66 97.6 12/03/16 10:48 100 Nasal Cannula 3 Intake and Output 12/03/16 07:00 Intake Total 790 ml Output Total 751 ml Balance 39 ml Intake Oral 790 ml Stool Total 1 ml Estimated Blood Loss 750 ml # Voids 4 Physical Exam Abdomen: Normal bowel sounds, Soft, No tenderness, No hepatosplenomegaly, No masses Heart: Regular rate, Normal S1, Normal S2, No murmurs, Gallops Extremities: No clubbing, No cyanosis, No edema, Normal pulses, No tenderness/ swelling General: Alert Lungs: Clear to auscultation, Normal air movement Diagnosis RENAL FAILURE: ESRD ANEMIA: Blood loss/Hemmorrhagic (Acute), Chronic diseases (ESRD) Assessment Assessment Problems Medical Problems: (1) Accelerated hypertension Status: Acute (2) Acute on chronic diastolic congestive heart failure due to valvular disease Status: Acute (3) Bilateral pleural effusion Status: Acute (4) Cardiomyopathy Status: Acute (5) COPD with acute exacerbation Status: Acute (6) End stage renal disease Status: Acute Plan Plan of Care FOR DIALYSIS TODAY TO MANAGE HYPERK+ AND TO GIVE 4 UNITS RBC Comment Review of Relevant I have reviewed the following items ernesto (where applicable) has been applied. Labs Laboratory Tests Test 12/02/16 04:40 12/03/16 04:10 12/03/16 05:45 12/03/16 06:00 Sodium Level 137mmol/L (136-145) 139mmol/L (136-145) Potassium Level 3.9mmol/L (3.5-5.1) 5.8mmol/L (3.5-5.1) Chloride Level 98mmol/L (98-107) 99mmol/L (98-107) Carbon Dioxide Level 29mmol/L (21-32) 26mmol/L (21-32) Anion Gap 10 (6-14) 14 (6-14) Blood Urea Nitrogen 44mg/dL (7-20) 86mg/dL (7-20) Creatinine 3.9mg/dL (0.6-1.0) 5.3mg/dL (0.6-1.0) Estimated GFR (Cockcroft-Gault) 12.7 8.9 Glucose Level 127mg/dL (70-99) 133mg/dL (70-99) Calcium Level 8.5mg/dL (8.5-10.1) 8.5mg/dL (8.5-10.1) Phosphorus Level 5.6mg/dL (2.6-4.7) 7.7mg/dL (2.6-4.7) Magnesium Level 2.0mg/dL (1.8-2.4) 1.9mg/dL (1.8-2.4) Albumin 3.2g/dL (3.4-5.0) 2.8g/dL (3.4-5.0) Prothrombin Time 16.8SEC (11.7-14.0) Prothromb Time International Ratio 1.5 (0.8-1.1) Hemoglobin 6.7g/dL (12.0-15.5) Hematocrit 22.0% (36.0-47.0) Mean Corpuscular Hemoglobin Concent 30g/dL (31-37) Test 12/03/16 12:25 White Blood Count 10.2x10^3/uL (4.0-11.0) Red Blood Count 1.27x10^6/uL (3.50-5.40) Hemoglobin 4.1g/dL (12.0-15.5) Hematocrit 13.1% (36.0-47.0) Mean Corpuscular Volume 103fL (79-100) Mean Corpuscular Hemoglobin 32pg (25-35) Mean Corpuscular Hemoglobin Concent 31g/dL (31-37) Red Cell Distribution Width 20.5% (11.5-14.5) Platelet Count 152x10^3/uL (140-400) Neutrophils (%) (Auto) 87% (31-73) Lymphocytes (%) (Auto) 8% (24-48) Monocytes (%) (Auto) 5% (0-9) Eosinophils (%) (Auto) 0% (0-3) Basophils (%) (Auto) 0% (0-3) Neutrophils # (Auto) 8.9x10^3uL (1.8-7.7) Lymphocytes # (Auto) 0.8x10^3/uL (1.0-4.8) Monocytes # (Auto) 0.5x10^3/uL (0.0-1.1) Eosinophils # (Auto) 0.0x10^3/uL (0.0-0.7) Basophils # (Auto) 0.0x10^3/uL (0.0-0.2) Laboratory Tests Test 12/03/16 04:10 12/03/16 05:45 12/03/16 06:00 12/03/16 12:25 Sodium Level 139mmol/L (136-145) Potassium Level 5.8mmol/L (3.5-5.1) Chloride Level 99mmol/L (98-107) Carbon Dioxide Level 26mmol/L (21-32) Anion Gap 14 (6-14) Blood Urea Nitrogen 86mg/dL (7-20) Creatinine 5.3mg/dL (0.6-1.0) Estimated GFR (Cockcroft-Gault) 8.9 Glucose Level 133mg/dL (70-99) Calcium Level 8.5mg/dL (8.5-10.1) Phosphorus Level 7.7mg/dL (2.6-4.7) Magnesium Level 1.9mg/dL (1.8-2.4) Albumin 2.8g/dL (3.4-5.0) Prothrombin Time 16.8SEC (11.7-14.0) Prothromb Time International Ratio 1.5 (0.8-1.1) Hemoglobin 6.7g/dL (12.0-15.5) 4.1g/dL (12.0-15.5) Hematocrit 22.0% (36.0-47.0) 13.1% (36.0-47.0) Mean Corpuscular Hemoglobin Concent 30g/dL (31-37) 31g/dL (31-37) White Blood Count 10.2x10^3/uL (4.0-11.0) Red Blood Count 1.27x10^6/uL (3.50-5.40) Mean Corpuscular Volume 103fL (79-100) Mean Corpuscular Hemoglobin 32pg (25-35) Red Cell Distribution Width 20.5% (11.5-14.5) Platelet Count 152x10^3/uL (140-400) Neutrophils (%) (Auto) 87% (31-73) Lymphocytes (%) (Auto) 8% (24-48) Monocytes (%) (Auto) 5% (0-9) Eosinophils (%) (Auto) 0% (0-3) Basophils (%) (Auto) 0% (0-3) Neutrophils # (Auto) 8.9x10^3uL (1.8-7.7) Lymphocytes # (Auto) 0.8x10^3/uL (1.0-4.8) Monocytes # (Auto) 0.5x10^3/uL (0.0-1.1) Eosinophils # (Auto) 0.0x10^3/uL (0.0-0.7) Basophils # (Auto) 0.0x10^3/uL (0.0-0.2) Microbiology 11/29/16 Gram Stain - Final, Complete Medications Current Medications Sodium Chloride (Iv Sodium Chloride 0.9% 1000ml Bag) 1,000 ml @ 100 mls/hr Q10H IV Last administered on 11/27/16 19:49; Start 11/27/16 at 19:01; Stop at 05:00; Status DC Albuterol/ Ipratropium (Duoneb) 6 ml 1X ONCE NEB Last administered on 19:10; Start 11/27/16 at 19:30; Stop 11/27/16 at 19:31; Status DC Methylprednisolone Sodium Succinate (Solu-Medrol 125mg Vial) 125 mg 1X ONCE IV Last administered on 11/27/16 19:49; Start 11/27/16 at 19:30; Stop 11/27/16 at 19:31; Status DC Acetaminophen/ Hydrocodone Bitart (Lortab 7.5/325) 1 tab 1X ONCE PO Last administered on 11/27/16 20:29; Start 11/27/16 at 20:15; Stop 11/27/16 at 20:17; Status DC Lisinopril (Prinivil) 10 mg 1X ONCE PO Last administered on 11/27/16 21:09; Start 11/27/16 at 21:15; Stop 11/27/16 at 21:16; Status DC Amlodipine Besylate (Norvasc) 10 mg 1X ONCE PO Last administered on 11/27/16 21:08; Start 11/27/16 at 21:15; Stop 11/27/16 at 21:16; Status DC Clonidine HCl (Catapres) 0.3 mg 1X ONCE PO Last administered on 11/27/16 21:09 ; Start 11/27/16 at 21:15; Stop 11/27/16 at 21:16; Status DC Ondansetron HCl (Zofran) 4 mg PRN Q8HRS PRN IV NAUSEA/VOMITING Last administered on 11/28/16 18:24; Start 11/27/16 at 22:30; Stop 11/28/16 at 22:29; Status DC Fentanyl Citrate (Fentanyl 2ml Vial) 50 mcg PRN Q2HR PRN IV SEVERE PAIN Last administered on 11/28/16 21:31; Start 11/27/16 at 22:30; Stop 11/28/16 at 22:29; Status DC Acetaminophen (Tylenol) 650 mg PRN Q4HRS PRN PO FEVER; Start 11/27/16 at 22:30; Stop 11/28/16 at 22:29; Status DC Albuterol/ Ipratropium (Duoneb) 3 ml RTQID NEB Last administered on 11/29/16 06 :06; Start 11/28/16 at 08:00; Stop 11/29/16 at 07:59; Status DC Methylprednisolone Sodium Succinate (Solu-Medrol 40mg Vial) 60 mg Q6HRS IV Last administered on 12/03/16 00:24; Start 11/28/16 at 00:00; Stop 12/03/16 at 13:20; Status DC Diphenhydramine HCl (Benadryl) 25 mg 1X ONCE IVP Last administered on 23:30; Start 11/27/16 at 23:00; Stop 11/27/16 at 23:01; Status DC Diphenhydramine HCl (Benadryl) 25 mg PRN Q6HRS PRN IVP ITCHING Last administered on 12/02/16 02:37; Start 11/28/16 at 02:00 Albuterol Sulfate (Ventolin Neb Soln) 2.5 mg PRN Q4HRS PRN NEB SHORTNESS OF BREATH Last administered on 12/02/16 12:23; Start 11/28/16 at 05:15 Acetaminophen (Tylenol) 500 mg PRN Q6HRS PRN PO PAIN Last administered on 06:13; Start 11/28/16 at 07:15 Lactobacillus Acidophilus (Bacid, Maren-Bid) 1 tab TIDWMEALS PO Last administered on 12/02/16 17:53; Start 11/28/16 at 08:00 Acyclovir (Zovirax) 200 mg BID PO Last administered on 12/02/16 21:28; Start 11/28/16 at 09:00 Amlodipine Besylate (Norvasc) 10 mg HS PO Last administered on 12/02/16 21:26 ; Start 11/28/16 at 21:00 Clonidine HCl (Catapres) 0.3 mg TID PO Last administered on 11/28/16 20:54; Start 11/28/16 at 09:00; Stop 11/29/16 at 14:02; Status DC Darbepoetin Apolinar (Aranesp) 60 mcg Tu SQ Last administered on 11/28/16 20:53; Start 11/28/16 at 21:00 Diclofenac Epolamine (Flector) 1 patch BID TD ; Start 11/28/16 at 09:00; Stop 11/28/16 at 14:38; Status DC Furosemide (Lasix) 80 mg TID@,,17 PO Last administered on 12/02/16 17:53; Start 11/28/16 at 09:00 Acetaminophen/ Hydrocodone Bitart (Lortab 7.5/325) 1 tab PRN Q4HRS PRN PO SEVERE PAIN Last administered on 12/02/16 21:37; Start 11/28/16 at 07:15 Isosorbide Mononitrate (Imdur) 30 mg DAILY PO Last administered on 12/02/16 10 :36; Start 11/28/16 at 09:00 Lidocaine/ Prilocaine (Emla) 1 oniel PRN QID PRN TP pain; Start 11/28/16 at 07:15 Lisinopril (Prinivil) 10 mg DAILY PO Last administered on 12/02/16 10:38; Start 11/28/16 at 09:00 Loperamide HCl (Imodium) 2 mg PRN Q15MIN PRN PO DIARRHEA; Start 11/28/16 at 07: 15 Lorazepam (Ativan) 1 mg PRN Q6HRS PRN PO VOMITING Last administered on 00:30; Start 11/28/16 at 07:15 Methocarbamol (Robaxin) 1,500 mg PRN QID PRN PO SEVERE PAIN Last administered on 11/30/16 23:37; Start 11/28/16 at 07:15 Paroxetine HCl (Paxil) 20 mg QHS PO Last administered on 12/02/16 21:27; Start 11/28/16 at 21:00 Sevelamer Carbonate (Renvela) 800 mg TIDWMEALS PO Last administered on 17:53; Start 11/28/16 at 08:00 Dicyclomine HCl (Bentyl) 20 mg PRN TID PRN PO Stomach pain Last administered on 11/28/16 09:02; Start 11/28/16 at 07:45 Diphenhydramine HCl (Benadryl) 50 mg QHS PO Last administered on 12/02/16 21: 25; Start 11/28/16 at 21:00 Non-Formulary Medication 2 puff DAILY IH ; Start 11/28/16 at 09:00; Stop 11/28/16 at 09:00; Status DC Folic Acid/ Multivitamins/Vit B12 (Nephro-Sheree) 1 tab DAILY PO Last administered on 12/02/16 10:36; Start 11/28/16 at 09:00 Cetirizine HCl (Zyrtec) 10 mg QHS PO Last administered on 12/02/16 21:25; Start 11/28/16 at 21:00 Non-Formulary Medication 8 mg PRN BID PRN PO NAUSEA/VOMITING; Start 11/28/16 at 07:15; Stop 11/30/16 at 10:18; Status DC Budesonide 0.5 mg 0.5 mg RTBID NEB Last administered on 12/03/16 05:58; Start 11/28/16 at 08:00 Magnesium Sulfate/ Dextrose (Magnesium Sulfate PREMIX 2GM) 50 ml @ 25 mls/hr PRN DAILY PRN IV for Mag < 1.7 on am labs; Start 11/28/16 at 10:45 Hydralazine HCl (Apresoline) 50 mg TID PO ; Start 11/28/16 at 14:00; Stop at 15:49; Status DC Hydralazine HCl (Apresoline) 10 mg PRN Q4HRS PRN IVP ELEVATED BP, SEE COMMENTS Last administered on 11/30/16 14:19; Start 11/28/16 at 12:00 Hydralazine HCl 25 mg 25 mg TID PO Last administered on 11/30/16 14:14; Start 11/28/16 at 21:00; Stop 11/30/16 at 15:13; Status DC Sodium Chloride (Iv Sodium Chloride 0.9% 1000ml Bag) 1,000 ml @ 1,000 mls/hr Q1H PRN IV hypotension; Start 11/29/16 at 08:51; Stop 11/29/16 at 14:50; Status DC Diphenhydramine HCl (Benadryl) 25 mg 1X PRN PRN IV ITCHING; Start 11/29/16 at 09 :00; Stop 11/30/16 at 08:59; Status DC Diphenhydramine HCl (Benadryl) 25 mg 1X PRN PRN IV ITCHING; Start 11/29/16 at 09 :00; Stop 11/30/16 at 08:59; Status DC Info (PHARMACY MONITORING -- do not chart) 1 each PRN DAILY PRN MC SEE COMMENTS ; Start 11/29/16 at 09:00 Info (PHARMACY MONITORING -- do not chart) 1 each PRN DAILY PRN MC SEE COMMENTS ; Start 11/29/16 at 09:00; Status UNV Fentanyl Citrate (Fentanyl 2ml Vial) 25 mcg PRN Q5MIN PRN IV MILD PAIN; Start 11/29/16 at 09:30; Stop 11/30/16 at 03:58; Status DC Fentanyl Citrate 50 mcg 50 mcg PRN Q5MIN PRN IV MODERATE PAIN Last administered on 11/29/16 17:38; Start 11/29/16 at 09:30; Stop 11/30/16 at 03:58; Status DC Lactated Ringer's (Iv Lactated Ringers) 1,000 ml @ 0 mls/hr Q0M IV ; Start 11/29 at 09:16; Stop 11/29/16 at 21:15; Status DC Lidocaine HCl 2 ml 1X PRN PRN ID IV START; Start 11/29/16 at 09:30; Stop at 03:58; Status DC Prochlorperazine Edisylate (Compazine) 5 mg PACU PRN PRN IV NAUSEA; Start at 09:30; Stop 11/30/16 at 03:58; Status DC Fentanyl Citrate (Fentanyl 2ml Vial) 50 mcg PRN Q2HR PRN IV PAIN Last administered on 12/01/16 13:31; Start 11/29/16 at 10:30; Stop 12/01/16 at 17:25 ; Status DC Ondansetron HCl (Zofran) 4 mg PRN Q6HRS PRN IV NAUSEA/VOMITING Last administered on 11/29/16 10:59; Start 11/29/16 at 10:30; Stop 11/29/16 at 14:41; Status DC Lidocaine/Sodium Bicarbonate (Buffered Lidocaine 1%) 3 ml 1X ONCE IJ Last administered on 11/29/16 14:32; Start 11/29/16 at 12:45; Stop 11/29/16 at 12:46; Status DC Bupivacaine HCl/ Epinephrine Bitart (Sensorcain-Mpf Epi 0.5%-[id number]) 30 ml STK -MED ONCE .ROUTE Last administered on 11/29/16 16:47; Start 11/29/16 at 13:57; Stop 11/29/16 at 13:58; Status DC Carvedilol (Coreg) 12.5 mg BIDWMEALS PO Last administered on 11/30/16 09:29; Start 11/29/16 at 17:00; Stop 11/30/16 at 15:13; Status DC Clonidine HCl 1 patch 1 patch WEEKLY TD Last administered on 11/29/16 18:05; Start 11/29/16 at 14:30 Propofol (Diprivan) 20 ml @ As Directed STK-MED ONCE IV ; Start 11/29/16 at 14:14 ; Stop 11/29/16 at 14:15; Status DC Fentanyl Citrate (Fentanyl 2ml Vial) 100 mcg STK-MED ONCE .ROUTE ; Start at 14:14; Stop 11/29/16 at 14:15; Status DC Ondansetron HCl (Zofran) 4 mg STK-MED ONCE .ROUTE ; Start 11/29/16 at 14:14; Stop 11/29/16 at 14:15; Status DC Ondansetron HCl (Zofran) 8 mg PRN Q6HRS PRN IV NAUSEA/VOMITING Last administered on 12/03/16 11:50; Start 11/29/16 at 14:45 Midazolam HCl (Versed) 2 mg STK-MED ONCE .ROUTE ; Start 11/29/16 at 16:44; Stop 11/29/16 at 16:45; Status DC Pantoprazole Sodium (Protonix) 40 mg DAILYAC PO Last administered on 12/02/16 10:37; Start 11/30/16 at 09:30; Stop 12/03/16 at 07:43; Status DC Ondansetron HCl (Zofran Odt) 8 mg PRN BID PRN PO NAUSEA/VOMITING Last administered on 12/02/16 19:11; Start 11/30/16 at 10:30 Carvedilol (Coreg) 25 mg BIDWMEALS PO Last administered on 12/02/16 17:53; Start 11/30/16 at 17:00 Hydralazine HCl (Apresoline) 50 mg TID PO Last administered on 12/02/16 21:27 ; Start 11/30/16 at 15:30 Aspirin (Ecotrin) 81 mg [id number] PO Last administered on 12/02/16 10:37; Start 11/30/16 at 16:00 Regadenoson (Lexiscan) 0.4 mg 1X ONCE IV Last administered on 12/01/16 09:28 ; Start 12/01/16 at 08:15; Stop 12/01/16 at 08:16; Status DC Levothyroxine Sodium 100 mcg 100 mcg DAILY07 PO Last administered on 12/02/16 06:12; Start 12/01/16 at 14:00 Sodium Chloride 1,000 ml @ 1,000 mls/hr Q1H PRN IV hypotension; Start 12/01/16 at 15:26; Stop 12/01/16 at 21:00; Status DC Sodium Chloride (Iv Sodium Chloride 0.9% 1000ml Bag) 1,000 ml @ 400 mls/hr Q2H30M PRN IV PATENCY; Start 12/01/16 at 15:26; Stop 12/01/16 at 21:00; Status DC Info (PHARMACY MONITORING -- do not chart) 1 each PRN DAILY PRN MC SEE COMMENTS ; Start 12/01/16 at 15:30; Status UNV Info (PHARMACY MONITORING -- do not chart) 1 each PRN DAILY PRN MC SEE COMMENTS ; Start 12/01/16 at 15:30; Status UNV Fentanyl Citrate (Fentanyl 2ml Vial) 50 mcg PRN Q4HRS PRN IV PAIN Last administered on 12/02/16 03:21; Start 12/01/16 at 17:30 Montelukast Sodium (Singulair) 10 mg QHS PO Last administered on 12/02/16 21: 30; Start 12/02/16 at 21:00 Pantoprazole Sodium 40 mg 40 mg DAILYAC IVP ; Start 12/03/16 at 08:00; Stop 10/07 at 08:00; Status DC Pantoprazole Sodium 80 mg/ Sodium Chloride 100 ml @ 10 mls/hr Q10H IV Last administered on 12/03/16 08:00; Start 12/03/16 at 08:00 Propofol (Diprivan) 20 ml @ As Directed STK-MED ONCE IV ; Start 12/03/16 at 09: 23; Stop 12/03/16 at 09:24; Status DC Lidocaine HCl (Lidocaine Pf 2% Vial) 5 ml STK-MED ONCE .ROUTE ; Start 12/03/16 at 09:24; Stop 12/03/16 at 09:25; Status DC Ephedrine Sulfate 50 mg STK-MED ONCE IV ; Start 12/03/16 at 09:24; Stop at 09:25; Status DC Morphine Sulfate 2 mg PRN Q2HR PRN IV PAIN; Start 12/03/16 at 10:30 Active Scripts Active Levaquin (Levofloxacin) 500 Mg Tablet 500 Mg PO Q48H Lisinopril 10 Mg Tablet 10 Mg PO DAILY 30 Days Hydrocodone-Apap 7.5-325 (Hydrocodone Bit/Acetaminophen) 1 Each Tablet 1 Tab PO PRN Q4HRS PRN 14 Days Flector (Diclofenac Epolamine) 1 Each Patch.td12 1 Patch TD BID 30 Days Aranesp Syringe (Darbepoetin Apolinar In Polysorbat) 60 Mcg/0.3 Ml Disp.syrin 60 Mcg SQ WEEKLYHS 30 Days Furosemide 80 Mg Tablet 80 Mg PO TID 30 Days Loperamide (Loperamide Hcl) 2 Mg Capsule 2 Mg PO PRN Q15MIN PRN 30 Days Isosorbide Mononitrate Er (Isosorbide Mononitrate) 30 Mg Tab.er.24h 30 Mg PO DAILY 30 Days Maren-Bid Caplet (Acidoph/L.bulg/Bif.b/S.thermop) 1 Each Tablet 1 Tab PO TIDWMEALS 30 Days Reported Lorazepam 1 Mg Tablet 1 Mg PO PRN Q6HRS PRN Renvela (Sevelamer Carbonate) 800 Mg Tablet 2 Tab PO TID Lidocaine-Prilocaine Cream (Lidocaine/Prilocaine) 30 Gm Cream..g. 1 Oniel TP UD Dicyclomine Hcl 20 Mg Tablet 1 Tab PO TID PRN Clonidine Hcl 0.3 Mg Tablet 0.3 Mg PO TID Amlodipine Besylate 10 Mg Tablet 10 Mg PO HS Renal Caps Softgel (Folic Acid/Vitamin B Comp W-C) 1 Mg Capsule 1 Cap PO DAILY Advair 250-50 Diskus (Fluticasone/Salmeterol) 1 Each Disk.w.dev 2 Puff IH DAILY Proair Hfa Inhaler (Albuterol Sulfate) 8.5 Gm Hfa.aer.ad 2 Puff INH PRN Q6HRS PRN Acyclovir 200 Mg Capsule 200 Mg PO BID Paroxetine Hcl 20 Mg Tablet 20 Mg PO QHS Nighttime Sleep Aid (Diphenhydramine Hcl) 50 Mg Capsule 50 Mg PO QHS Ondansetron Hcl 8 Mg Tablet 8 Mg PO BID PRN Methocarbamol 750 Mg Tablet 1,500 Mg PO QID PRN Tylenol Extra Strength (Acetaminophen) 500 Mg Tablet 500 Mg PO Q6HRS PRN Claritin (Loratadine) 10 Mg Capsule 10 Mg PO HS Vitals/I & O Vital Sign - Last 24 Hours 12/02/16 12/02/16 12/02/16 12/02/16 15:26 17:53 19:00 20:00 Temp 97.9 98.1 97.9 98.1 Pulse 95 95 95 Resp 20 18 B/P 145/79 145/79 164/88 Pulse Ox 98 O2 Delivery Nasal Cannula Nasal Cannula Nasal Cannula O2 Flow Rate 3.0 2.5 2.0 12/02/16 12/02/16 12/02/16 12/02/16 21:26 21:27 21:37 22:37 Pulse 95 95 Resp 16 15 B/P 164/88 164/88 O2 Delivery Nasal Cannula Nasal Cannula O2 Flow Rate 2.0 2.0 12/02/16 12/02/16 12/03/16 12/03/16 23:00 23:10 03:00 05:59 Temp 97.5 97.9 97.5 97.9 Pulse 85 83 Resp 16 14 B/P 136/78 140/76 Pulse Ox 93 98 97 98 O2 Delivery Nasal Cannula Nasal Cannula Nasal Cannula Nasal Cannula O2 Flow Rate 2.5 2.0 2.5 2.0 12/03/16 12/03/16 12/03/16 12/03/16 07:06 08:00 09:09 09:09 Temp 98.6 97.2 98.6 97.2 Pulse 82 87 Resp 14 20 B/P 116/66 Pulse Ox 99 100 O2 Delivery Nasal Cannula Nasal Cannula Nasal Cannula O2 Flow Rate 2.5 3.0 2.5 12/03/16 12/03/16 12/03/16 12/03/16 10:12 10:24 10:48 12:50 Temp 97.5 97.5 97.5 97.4 97.5 97.5 97.5 97.4 Pulse 80 86 87 89 Resp 20 20 20 16 B/P 172/80 162/78 175/88 122/68 Pulse Ox 100 100 100 O2 Delivery Nasal Cannula Nasal Cannula Nasal Cannula O2 Flow Rate 3 3 3 12/03/16 13:06 Temp 97.6 97.6 Pulse 90 Resp 24 B/P 136/66 Intake and Output 12/02/16 12/02/16 12/03/16 15:00 23:00 07:00 Intake Total 340 ml 450 ml Output Total 1 ml 750 ml Balance 339 ml -300 ml STEFANY DEVLIN MD Dec 03, 2016 14:31
[2016-12-03] MEDS ORDERED: IV NORMAL SALINE 1000ML BAG 1,000 ML IV PRN ×2 (17:19)
[2016-12-03] MEDS ORDERED: DIALYSIS PATIENT. MC PRN ×2 (17:30)
[2016-12-03] MEDS: MORPHINE SULFATE 2 MG/ML DISP.SYRIN. IV PRN ×3 (19:01→21:42)
[2016-12-03 19:33] LABS: BASO % 0 % (0-3); EOS % 0 % (0-3); HEMATOCRIT 32.6 % (36.0-47.0); HEMOGLOBIN 10.7 g/dL (12.0-15.5); LYMPH # 1.2 x10^3/uL (1.0-4.8); LYMPH % 10 % (24-48); MEAN CORPUSCULAR HEMOGLOBIN 30 pg (25-35); MEAN CORPUSCULAR HGB CONC 33 g/dL (31-37); MEAN CORPUSCULAR VOLUME 91 fL (79-100); MONO % 10 % (0-9); NEUT % 80 % (31-73); PLATELET COUNT 103 x10^3/uL (140-400); RED CELL DISTRIBUTION WIDTH 18.6 % (11.5-14.5); WHITE BLOOD COUNT 12.3 x10^3/uL (4.0-11.0)
[2016-12-03 19:44] LABS: INR 1.7 (0.8-1.1); PROTHROMBIN TIME PATIENT 18.8 SEC (11.7-14.0)
[2016-12-03] MEDS: MONTELUKAST SODIUM 10 MG TABLET. PO SCH (21:04)
[2016-12-03] MEDS: PAROXETINE 20 MG TABLET. PO SCH (21:04)
[2016-12-03] MEDS: CETIRIZINE HCL 10 MG TABLET PO SCH (21:04)
[2016-12-03] MEDS: DIPHENHYDRAMINE HCL 25 MG CAPSULE PO SCH (21:04)
[2016-12-03] MEDS: AMLODIPINE BESYLATE 10 MG TABLET PO SCH (21:05)
[2016-12-03] MEDS: AA 3%/ELECTROLYTE-TPN SOLN/GLY 1,000 ML IV SCH (21:05)
[2016-12-03] MEDS ORDERED: PROCHLORPERAZINE 25 MG SUPP.RECT. PR PRN (22:00)
[2016-12-04] VITALS (18 sets, daily range): BP systolic 108–254; BP diastolic 63–99
[2016-12-04] MEDS: MORPHINE SULFATE 2 MG/ML DISP.SYRIN. IV PRN ×6 (00:01→21:02)
[2016-12-04] MEDS: LEVOTHYROXINE 100 MCG TABLET PO SCH (05:51)
[2016-12-04] MEDS: PANTOPRAZOLE SODIUM IV 80 MG in IV NORMAL SALINE 100ML 100 ML IV SCH (05:51)
[2016-12-04] MEDS: BUDESONIDE 0.5 MG/2 ML NEBU NEB SCH ×2 (07:31→20:31)
[2016-12-04] MEDS: CARVEDILOL 12.5 MG TABLET PO SCH (08:00)
[2016-12-04] MEDS: LACTOBACILLUS ACIDOPH & BULGAR 1 TABLET. PO SCH ×3 (08:00→17:00)
[2016-12-04] MEDS: ASPIRIN ENTERIC COATED 81 MG TABLET.DR. PO SCH (08:00)
[2016-12-04] MEDS: SEVELAMER CARBONATE 800 MG TABLET. PO SCH ×3 (08:00→17:00)
[2016-12-04] MEDS: AA 3%/ELECTROLYTE-TPN SOLN/GLY 1,000 ML IV SCH ×2 (08:15→20:45)
--- NOTE | 2016-12-04 08:57 | PDOC ---
PROGRESS NOTES Subjective Subjective c/c - f/u of MM Objective Objective Vital Signs Date Time Temp Pulse Resp B/P Pulse Ox O2 Delivery O2 Flow Rate FiO2 12/04/16 07:34 95 Nasal Cannula 2.0 12/04/16 07:00 98.5 87 18 117/70 98.5 Intake and Output 12/04/16 07:00 Intake Total 2865 ml Output Total 100 ml Balance 2765 ml Intake Oral 0 ml Blood Product IV Normal Saline Flush 2865 ml Estimated Blood Loss 100 ml # Voids 4 Physical Exam General: Alert, Oriented X3 Neuro: Normal speech Psych/Mental Status: Mental status NL Assessment Assessment Problems Medical Problems: (1) Accelerated hypertension Status: Acute (2) Acute on chronic diastolic congestive heart failure due to valvular disease Status: Acute (3) Bilateral pleural effusion Status: Acute (4) Cardiomyopathy Status: Acute (5) COPD with acute exacerbation Status: Acute (6) End stage renal disease Status: Acute 1. Multiple myeloma, currently on chemo with velcade and well controlled.. 2. Dyspnea secondary to acute on chronic congestive heart failure, I do not think it is related to velcade or MM. He myeloma is under very good control. Appreciate cardiology management. . 3. End-stage renal disease, on hemodialysis. 4. Anemia due to GI bleed, monitor Hb - EGD 12/03/16 : s/p gastric bypass gastric ulcer below GE junction S/p cautery/endo-clip/ epi injection with cessation of bleeding 4 Comment Review of Relevant I have reviewed the following items ernesto (where applicable) has been applied. Labs Laboratory Tests Test 12/03/16 04:10 12/03/16 05:45 12/03/16 06:00 12/03/16 12:25 Sodium Level 139mmol/L (136-145) Potassium Level 5.8mmol/L (3.5-5.1) Chloride Level 99mmol/L (98-107) Carbon Dioxide Level 26mmol/L (21-32) Anion Gap 14 (6-14) Blood Urea Nitrogen 86mg/dL (7-20) Creatinine 5.3mg/dL (0.6-1.0) Estimated GFR (Cockcroft-Gault) 8.9 Glucose Level 133mg/dL (70-99) Calcium Level 8.5mg/dL (8.5-10.1) Phosphorus Level 7.7mg/dL (2.6-4.7) Magnesium Level 1.9mg/dL (1.8-2.4) Albumin 2.8g/dL (3.4-5.0) Prothrombin Time 16.8SEC (11.7-14.0) Prothromb Time International Ratio 1.5 (0.8-1.1) Hemoglobin 6.7g/dL (12.0-15.5) 4.1g/dL (12.0-15.5) Hematocrit 22.0% (36.0-47.0) 13.1% (36.0-47.0) Mean Corpuscular Hemoglobin Concent 30g/dL (31-37) 31g/dL (31-37) White Blood Count 10.2x10^3/uL (4.0-11.0) Red Blood Count 1.27x10^6/uL (3.50-5.40) Mean Corpuscular Volume 103fL (79-100) Mean Corpuscular Hemoglobin 32pg (25-35) Red Cell Distribution Width 20.5% (11.5-14.5) Platelet Count 152x10^3/uL (140-400) Neutrophils (%) (Auto) 87% (31-73) Lymphocytes (%) (Auto) 8% (24-48) Monocytes (%) (Auto) 5% (0-9) Eosinophils (%) (Auto) 0% (0-3) Basophils (%) (Auto) 0% (0-3) Neutrophils # (Auto) 8.9x10^3uL (1.8-7.7) Lymphocytes # (Auto) 0.8x10^3/uL (1.0-4.8) Monocytes # (Auto) 0.5x10^3/uL (0.0-1.1) Eosinophils # (Auto) 0.0x10^3/uL (0.0-0.7) Basophils # (Auto) 0.0x10^3/uL (0.0-0.2) Test 12/03/16 19:20 White Blood Count 12.3x10^3/uL (4.0-11.0) Red Blood Count 3.60x10^6/uL (3.50-5.40) Hemoglobin 10.7g/dL (12.0-15.5) Hematocrit 32.6% (36.0-47.0) Mean Corpuscular Volume 91fL (79-100) Mean Corpuscular Hemoglobin 30pg (25-35) Mean Corpuscular Hemoglobin Concent 33g/dL (31-37) Red Cell Distribution Width 18.6% (11.5-14.5) Platelet Count 103x10^3/uL (140-400) Neutrophils (%) (Auto) 80% (31-73) Lymphocytes (%) (Auto) 10% (24-48) Monocytes (%) (Auto) 10% (0-9) Eosinophils (%) (Auto) 0% (0-3) Basophils (%) (Auto) 0% (0-3) Neutrophils # (Auto) 9.9x10^3uL (1.8-7.7) Lymphocytes # (Auto) 1.2x10^3/uL (1.0-4.8) Monocytes # (Auto) 1.2x10^3/uL (0.0-1.1) Eosinophils # (Auto) 0.0x10^3/uL (0.0-0.7) Basophils # (Auto) 0.0x10^3/uL (0.0-0.2) Prothrombin Time 18.8SEC (11.7-14.0) Prothromb Time International Ratio 1.7 (0.8-1.1) Laboratory Tests Test 12/03/16 12:25 12/03/16 19:20 White Blood Count 10.2x10^3/uL (4.0-11.0) 12.3x10^3/uL (4.0-11.0) Red Blood Count 1.27x10^6/uL (3.50-5.40) 3.60x10^6/uL (3.50-5.40) Hemoglobin 4.1g/dL (12.0-15.5) 10.7g/dL (12.0-15.5) Hematocrit 13.1% (36.0-47.0) 32.6% (36.0-47.0) Mean Corpuscular Volume 103fL (79-100) 91fL (79-100) Mean Corpuscular Hemoglobin 32pg (25-35) 30pg (25-35) Mean Corpuscular Hemoglobin Concent 31g/dL (31-37) 33g/dL (31-37) Red Cell Distribution Width 20.5% (11.5-14.5) 18.6% (11.5-14.5) Platelet Count 152x10^3/uL (140-400) 103x10^3/uL (140-400) Neutrophils (%) (Auto) 87% (31-73) 80% (31-73) Lymphocytes (%) (Auto) 8% (24-48) 10% (24-48) Monocytes (%) (Auto) 5% (0-9) 10% (0-9) Eosinophils (%) (Auto) 0% (0-3) 0% (0-3) Basophils (%) (Auto) 0% (0-3) 0% (0-3) Neutrophils # (Auto) 8.9x10^3uL (1.8-7.7) 9.9x10^3uL (1.8-7.7) Lymphocytes # (Auto) 0.8x10^3/uL (1.0-4.8) 1.2x10^3/uL (1.0-4.8) Monocytes # (Auto) 0.5x10^3/uL (0.0-1.1) 1.2x10^3/uL (0.0-1.1) Eosinophils # (Auto) 0.0x10^3/uL (0.0-0.7) 0.0x10^3/uL (0.0-0.7) Basophils # (Auto) 0.0x10^3/uL (0.0-0.2) 0.0x10^3/uL (0.0-0.2) Prothrombin Time 18.8SEC (11.7-14.0) Prothromb Time International Ratio 1.7 (0.8-1.1) Microbiology 11/29/16 Gram Stain - Final, Complete Medications Current Medications Sodium Chloride (Iv Sodium Chloride 0.9% 1000ml Bag) 1,000 ml @ 100 mls/hr Q10H IV Last administered on 11/27/16t 19:49; Start 11/27/16 at 19:01; Stop at 05:00; Status DC Albuterol/ Ipratropium (Duoneb) 6 ml 1X ONCE NEB Last administered on 19:10; Start 11/27/16 at 19:30; Stop 11/27/16 at 19:31; Status DC Methylprednisolone Sodium Succinate (Solu-Medrol 125mg Vial) 125 mg 1X ONCE IV Last administered on 11/27/16 19:49; Start 11/27/16 at 19:30; Stop 11/27/16 at 19:31; Status DC Acetaminophen/ Hydrocodone Bitart (Lortab 7.5/325) 1 tab 1X ONCE PO Last administered on 11/27/16 20:29; Start 11/27/16 at 20:15; Stop 11/27/16 at 20:17; Status DC Lisinopril (Prinivil) 10 mg 1X ONCE PO Last administered on 11/27/16 21:09; Start 11/27/16 at 21:15; Stop 11/27/16 at 21:16; Status DC Amlodipine Besylate (Norvasc) 10 mg 1X ONCE PO Last administered on 11/27/16 21:08; Start 11/27/16 at 21:15; Stop 11/27/16 at 21:16; Status DC Clonidine HCl (Catapres) 0.3 mg 1X ONCE PO Last administered on 11/27/16 21:09 ; Start 11/27/16 at 21:15; Stop 11/27/16 at 21:16; Status DC Ondansetron HCl (Zofran) 4 mg PRN Q8HRS PRN IV NAUSEA/VOMITING Last administered on 11/28/16 18:24; Start 11/27/16 at 22:30; Stop 11/28/16 at 22:29; Status DC Fentanyl Citrate (Fentanyl 2ml Vial) 50 mcg PRN Q2HR PRN IV SEVERE PAIN Last administered on 11/28/16 21:31; Start 11/27/16 at 22:30; Stop 11/28/16 at 22:29; Status DC Acetaminophen (Tylenol) 650 mg PRN Q4HRS PRN PO FEVER; Start 11/27/16 at 22:30; Stop 11/28/16 at 22:29; Status DC Albuterol/ Ipratropium (Duoneb) 3 ml RTQID NEB Last administered on 11/29/16 06 :06; Start 11/28/16 at 08:00; Stop 11/29/16 at 07:59; Status DC Methylprednisolone Sodium Succinate (Solu-Medrol 40mg Vial) 60 mg Q6HRS IV Last administered on 12/03/16 00:24; Start 11/28/16 at 00:00; Stop 12/03/16 at 13:20; Status DC Diphenhydramine HCl (Benadryl) 25 mg 1X ONCE IVP Last administered on 23:30; Start 11/27/16 at 23:00; Stop 11/27/16 at 23:01; Status DC Diphenhydramine HCl (Benadryl) 25 mg PRN Q6HRS PRN IVP ITCHING Last administered on 12/02/16 02:37; Start 11/28/16 at 02:00 Albuterol Sulfate (Ventolin Neb Soln) 2.5 mg PRN Q4HRS PRN NEB SHORTNESS OF BREATH Last administered on 12/02/16 12:23; Start 11/28/16 at 05:15 Acetaminophen (Tylenol) 500 mg PRN Q6HRS PRN PO PAIN Last administered on 06:13; Start 11/28/16 at 07:15 Lactobacillus Acidophilus (Bacid, Maren-Bid) 1 tab TIDWMEALS PO Last administered on 12/02/16 17:53; Start 11/28/16 at 08:00 Acyclovir (Zovirax) 200 mg BID PO Last administered on 12/03/16 21:04; Start 11/28/16 at 09:00 Amlodipine Besylate (Norvasc) 10 mg HS PO Last administered on 12/03/16 21:05 ; Start 11/28/16 at 21:00 Clonidine HCl (Catapres) 0.3 mg TID PO Last administered on 11/28/16 20:54; Start 11/28/16 at 09:00; Stop 11/29/16 at 14:02; Status DC Darbepoetin Apolinar (Aranesp) 60 mcg Tu SQ Last administered on 11/28/16 20:53; Start 11/28/16 at 21:00 Diclofenac Epolamine (Flector) 1 patch BID TD ; Start 11/28/16 at 09:00; Stop 11/28/16 at 14:38; Status DC Furosemide (Lasix) 80 mg TID@,, PO Last administered on 12/03/16 21:06; Start 11/28/16 at 09:00 Acetaminophen/ Hydrocodone Bitart (Lortab 7.5/325) 1 tab PRN Q4HRS PRN PO SEVERE PAIN Last administered on 12/02/16 21:37; Start 11/28/16 at 07:15 Isosorbide Mononitrate (Imdur) 30 mg DAILY PO Last administered on 12/02/16 10 :36; Start 11/28/16 at 09:00 Lidocaine/ Prilocaine (Emla) 1 oniel PRN QID PRN TP pain; Start 11/28/16 at 07:15 Lisinopril (Prinivil) 10 mg DAILY PO Last administered on 12/02/16 10:38; Start 11/28/16 at 09:00 Loperamide HCl (Imodium) 2 mg PRN Q15MIN PRN PO DIARRHEA; Start 11/28/16 at 07: 15 Lorazepam (Ativan) 1 mg PRN Q6HRS PRN PO VOMITING Last administered on 21:06; Start 11/28/16 at 07:15 Methocarbamol (Robaxin) 1,500 mg PRN QID PRN PO SEVERE PAIN Last administered on 11/30/16 23:37; Start 11/28/16 at 07:15 Paroxetine HCl (Paxil) 20 mg QHS PO Last administered on 12/03/16 21:04; Start 11/28/16 at 21:00 Sevelamer Carbonate (Renvela) 800 mg TIDWMEALS PO Last administered on 17:53; Start 11/28/16 at 08:00 Dicyclomine HCl (Bentyl) 20 mg PRN TID PRN PO Stomach pain Last administered on 11/28/16 09:02; Start 11/28/16 at 07:45 Diphenhydramine HCl (Benadryl) 50 mg QHS PO Last administered on 12/03/16 21: 04; Start 11/28/16 at 21:00 Non-Formulary Medication 2 puff DAILY IH ; Start 11/28/16 at 09:00; Stop 11/28/16 at 09:00; Status DC Folic Acid/ Multivitamins/Vit B12 (Nephro-Sheree) 1 tab DAILY PO Last administered on 12/02/16 10:36; Start 11/28/16 at 09:00 Cetirizine HCl (Zyrtec) 10 mg QHS PO Last administered on 12/03/16 21:04; Start 11/28/16 at 21:00 Non-Formulary Medication 8 mg PRN BID PRN PO NAUSEA/VOMITING; Start 11/28/16 at 07:15; Stop 11/30/16 at 10:18; Status DC Budesonide 0.5 mg 0.5 mg RTBID NEB Last administered on 12/04/16 07:31; Start 11/28/16 at 08:00 Magnesium Sulfate/ Dextrose (Magnesium Sulfate PREMIX 2GM) 50 ml @ 25 mls/hr PRN DAILY PRN IV for Mag < 1.7 on am labs; Start 11/28/16 at 10:45 Hydralazine HCl (Apresoline) 50 mg TID PO ; Start 11/28/16 at 14:00; Stop at 15:49; Status DC Hydralazine HCl (Apresoline) 10 mg PRN Q4HRS PRN IVP ELEVATED BP, SEE COMMENTS Last administered on 11/30/16 14:19; Start 11/28/16 at 12:00 Hydralazine HCl 25 mg 25 mg TID PO Last administered on 11/30/16 14:14; Start 11/28/16 at 21:00; Stop 11/30/16 at 15:13; Status DC Sodium Chloride (Iv Sodium Chloride 0.9% 1000ml Bag) 1,000 ml @ 1,000 mls/hr Q1H PRN IV hypotension; Start 11/29/16 at 08:51; Stop 11/29/16 at 14:50; Status DC Diphenhydramine HCl (Benadryl) 25 mg 1X PRN PRN IV ITCHING; Start 11/29/16 at 09 :00; Stop 11/30/16 at 08:59; Status DC Diphenhydramine HCl (Benadryl) 25 mg 1X PRN PRN IV ITCHING; Start 11/29/16 at 09 :00; Stop 11/30/16 at 08:59; Status DC Info (PHARMACY MONITORING -- do not chart) 1 each PRN DAILY PRN MC SEE COMMENTS ; Start 11/29/16 at 09:00 Info (PHARMACY MONITORING -- do not chart) 1 each PRN DAILY PRN MC SEE COMMENTS ; Start 11/29/16 at 09:00; Status UNV Fentanyl Citrate (Fentanyl 2ml Vial) 25 mcg PRN Q5MIN PRN IV MILD PAIN; Start 11/29/16 at 09:30; Stop 11/30/16 at 03:58; Status DC Fentanyl Citrate 50 mcg 50 mcg PRN Q5MIN PRN IV MODERATE PAIN Last administered on 11/29/16 17:38; Start 11/29/16 at 09:30; Stop 11/30/16 at 03:58; Status DC Lactated Ringer's (Iv Lactated Ringers) 1,000 ml @ 0 mls/hr Q0M IV ; Start 11/29 at 09:16; Stop 11/29/16 at 21:15; Status DC Lidocaine HCl 2 ml 1X PRN PRN ID IV START; Start 11/29/16 at 09:30; Stop at 03:58; Status DC Prochlorperazine Edisylate (Compazine) 5 mg PACU PRN PRN IV NAUSEA; Start at 09:30; Stop 11/30/16 at 03:58; Status DC Fentanyl Citrate (Fentanyl 2ml Vial) 50 mcg PRN Q2HR PRN IV PAIN Last administered on 12/01/16 13:31; Start 11/29/16 at 10:30; Stop 12/01/16 at 17:25 ; Status DC Ondansetron HCl (Zofran) 4 mg PRN Q6HRS PRN IV NAUSEA/VOMITING Last administered on 11/29/16 10:59; Start 11/29/16 at 10:30; Stop 11/29/16 at 14:41; Status DC Lidocaine/Sodium Bicarbonate (Buffered Lidocaine 1%) 3 ml 1X ONCE IJ Last administered on 11/29/16 14:32; Start 11/29/16 at 12:45; Stop 11/29/16 at 12:46; Status DC Bupivacaine HCl/ Epinephrine Bitart (Sensorcain-Mpf Epi 0.5%-1:122314) 30 ml STK -MED ONCE .ROUTE Last administered on 11/29/16 16:47; Start 11/29/16 at 13:57; Stop 11/29/16 at 13:58; Status DC Carvedilol (Coreg) 12.5 mg BIDWMEALS PO Last administered on 11/30/16 09:29; Start 11/29/16 at 17:00; Stop 11/30/16 at 15:13; Status DC Clonidine HCl 1 patch 1 patch WEEKLY TD Last administered on 11/29/16 18:05; Start 11/29/16 at 14:30 Propofol (Diprivan) 20 ml @ As Directed STK-MED ONCE IV ; Start 11/29/16 at 14:14 ; Stop 11/29/16 at 14:15; Status DC Fentanyl Citrate (Fentanyl 2ml Vial) 100 mcg STK-MED ONCE .ROUTE ; Start at 14:14; Stop 11/29/16 at 14:15; Status DC Ondansetron HCl (Zofran) 4 mg STK-MED ONCE .ROUTE ; Start 11/29/16 at 14:14; Stop 11/29/16 at 14:15; Status DC Ondansetron HCl (Zofran) 8 mg PRN Q6HRS PRN IV NAUSEA/VOMITING Last administered on 12/03/16 18:58; Start 11/29/16 at 14:45 Midazolam HCl (Versed) 2 mg STK-MED ONCE .ROUTE ; Start 11/29/16 at 16:44; Stop 11/29/16 at 16:45; Status DC Pantoprazole Sodium (Protonix) 40 mg DAILYAC PO Last administered on 12/02/16 10:37; Start 11/30/16 at 09:30; Stop 12/03/16 at 07:43; Status DC Ondansetron HCl (Zofran Odt) 8 mg PRN BID PRN PO NAUSEA/VOMITING Last administered on 12/02/16 19:11; Start 11/30/16 at 10:30 Carvedilol (Coreg) 25 mg BIDWMEALS PO Last administered on 12/03/16 21:06; Start 11/30/16 at 17:00 Hydralazine HCl (Apresoline) 50 mg TID PO Last administered on 12/03/16 21:11 ; Start 11/30/16 at 15:30 Aspirin (Ecotrin) 81 mg DAILYWBKFT PO Last administered on 12/02/16 10:37; Start 11/30/16 at 16:00 Regadenoson (Lexiscan) 0.4 mg 1X ONCE IV Last administered on 12/01/16 09:28 ; Start 12/01/16 at 08:15; Stop 12/01/16 at 08:16; Status DC Levothyroxine Sodium 100 mcg 100 mcg DAILY07 PO Last administered on 12/02/16 06:12; Start 12/01/16 at 14:00 Sodium Chloride 1,000 ml @ 1,000 mls/hr Q1H PRN IV hypotension; Start 12/01/16 at 15:26; Stop 12/01/16 at 21:00; Status DC Sodium Chloride (Iv Sodium Chloride 0.9% 1000ml Bag) 1,000 ml @ 400 mls/hr Q2H30M PRN IV PATENCY; Start 12/01/16 at 15:26; Stop 12/01/16 at 21:00; Status DC Info (PHARMACY MONITORING -- do not chart) 1 each PRN DAILY PRN MC SEE COMMENTS ; Start 12/01/16 at 15:30; Status UNV Info (PHARMACY MONITORING -- do not chart) 1 each PRN DAILY PRN MC SEE COMMENTS ; Start 12/01/16 at 15:30; Status UNV Fentanyl Citrate (Fentanyl 2ml Vial) 50 mcg PRN Q4HRS PRN IV PAIN Last administered on 12/02/16 03:21; Start 12/01/16 at 17:30 Montelukast Sodium (Singulair) 10 mg QHS PO Last administered on 12/03/16 21: 04; Start 12/02/16 at 21:00 Pantoprazole Sodium 40 mg 40 mg DAILYAC IVP ; Start 12/03/16 at 08:00; Stop 10/07 at 08:00; Status DC Pantoprazole Sodium 80 mg/ Sodium Chloride 100 ml @ 10 mls/hr Q10H IV Last administered on 12/03/16 18:57; Start 12/03/16 at 08:00 Propofol (Diprivan) 20 ml @ As Directed STK-MED ONCE IV ; Start 12/03/16 at 09: 23; Stop 12/03/16 at 09:24; Status DC Lidocaine HCl (Lidocaine Pf 2% Vial) 5 ml STK-MED ONCE .ROUTE ; Start 12/03/16 at 09:24; Stop 12/03/16 at 09:25; Status DC Ephedrine Sulfate 50 mg STK-MED ONCE IV ; Start 12/03/16 at 09:24; Stop at 09:25; Status DC Morphine Sulfate 2 mg 2 mg PRN Q2HR PRN IV PAIN Last administered on 12/04/16 02:50; Start 12/03/16 at 10:30 Sodium Chloride 1,000 ml @ 1,000 mls/hr Q1H PRN IV hypotension; Start 12/03/16 at 17:19; Stop 12/03/16 at 23:18; Status DC Sodium Chloride (Iv Sodium Chloride 0.9% 1000ml Bag) 1,000 ml @ 400 mls/hr Q2H30M PRN IV PATENCY; Start 12/03/16 at 17:19; Stop 12/04/16 at 05:18; Status DC Info (PHARMACY MONITORING -- do not chart) 1 each PRN DAILY PRN MC SEE COMMENTS ; Start 12/03/16 at 17:30; Status UNV Info 1 each 1 each PRN DAILY PRN MC SEE COMMENTS; Start 12/03/16 at 17:30; Status UNV Amino Acids/ Glycerin/ Electrolytes (Procalamine) 1,000 ml @ 80 mls/hr [id number] IV Last administered on 12/03/16t 21:05; Start 12/03/16 at 19:45 Prochlorperazine (Compazine) 25 mg PRN Q12HR PRN MT NAUSEA/VOMITING; Start 10/07 at 22:00 Active Scripts Active Levaquin (Levofloxacin) 500 Mg Tablet 500 Mg PO Q48H Lisinopril 10 Mg Tablet 10 Mg PO DAILY 30 Days Hydrocodone-Apap 7.5-325 (Hydrocodone Bit/Acetaminophen) 1 Each Tablet 1 Tab PO PRN Q4HRS PRN 14 Days Flector (Diclofenac Epolamine) 1 Each Patch.td12 1 Patch TD BID 30 Days Aranesp Syringe (Darbepoetin Apolinar In Polysorbat) 60 Mcg/0.3 Ml Disp.syrin 60 Mcg SQ WEEKLYHS 30 Days Furosemide 80 Mg Tablet 80 Mg PO TID 30 Days Loperamide (Loperamide Hcl) 2 Mg Capsule 2 Mg PO PRN Q15MIN PRN 30 Days Isosorbide Mononitrate Er (Isosorbide Mononitrate) 30 Mg Tab.er.24h 30 Mg PO DAILY 30 Days Maren-Bid Caplet (Acidoph/L.bulg/Bif.b/S.thermop) 1 Each Tablet 1 Tab PO TIDWMEALS 30 Days Reported Lorazepam 1 Mg Tablet 1 Mg PO PRN Q6HRS PRN Renvela (Sevelamer Carbonate) 800 Mg Tablet 2 Tab PO TID Lidocaine-Prilocaine Cream (Lidocaine/Prilocaine) 30 Gm Cream..g. 1 Oniel TP UD Dicyclomine Hcl 20 Mg Tablet 1 Tab PO TID PRN Clonidine Hcl 0.3 Mg Tablet 0.3 Mg PO TID Amlodipine Besylate 10 Mg Tablet 10 Mg PO HS Renal Caps Softgel (Folic Acid/Vitamin B Comp W-C) 1 Mg Capsule 1 Cap PO DAILY Advair 250-50 Diskus (Fluticasone/Salmeterol) 1 Each Disk.w.dev 2 Puff IH DAILY Proair Hfa Inhaler (Albuterol Sulfate) 8.5 Gm Hfa.aer.ad 2 Puff INH PRN Q6HRS PRN Acyclovir 200 Mg Capsule 200 Mg PO BID Paroxetine Hcl 20 Mg Tablet 20 Mg PO QHS Nighttime Sleep Aid (Diphenhydramine Hcl) 50 Mg Capsule 50 Mg PO QHS Ondansetron Hcl 8 Mg Tablet 8 Mg PO BID PRN Methocarbamol 750 Mg Tablet 1,500 Mg PO QID PRN Tylenol Extra Strength (Acetaminophen) 500 Mg Tablet 500 Mg PO Q6HRS PRN Claritin (Loratadine) 10 Mg Capsule 10 Mg PO HS Vitals/I & O Vital Sign - Last 24 Hours 12/03/16 12/03/16 12/03/16 12/03/16 09:09 09:09 10:12 10:24 Temp 97.2 97.5 97.5 97.2 97.5 97.5 Pulse 87 80 86 Resp 20 20 20 B/P 172/80 162/78 Pulse Ox 100 100 100 O2 Delivery Nasal Cannula Nasal Cannula Nasal Cannula O2 Flow Rate 2.5 3 3 12/03/16 12/03/16 12/03/16 12/03/16 10:48 12:50 13:06 13:21 Temp 97.5 97.4 97.6 97.5 97.5 97.4 97.6 97.5 Pulse 87 89 90 95 Resp 20 16 24 16 B/P 175/88 122/68 136/66 140/77 Pulse Ox 100 O2 Delivery Nasal Cannula O2 Flow Rate 3 12/03/16 12/03/16 12/03/16 12/03/16 15:00 15:35 15:45 16:00 Temp 97.7 98.5 98.0 98.0 97.7 98.5 98.0 98.0 Pulse 100 95 91 86 Resp 14 16 16 16 B/P 123/70 152/88 143/79 163/88 Pulse Ox 100 O2 Delivery Nasal Cannula O2 Flow Rate 2.5 12/03/16 12/03/16 12/03/16 12/03/16 16:05 16:20 16:30 16:50 Temp 97.7 98.6 98.4 98.8 97.7 98.6 98.4 98.8 Pulse 93 86 98 99 Resp 16 16 16 16 B/P 154/91 137/62 158/90 145/84 12/03/16 12/03/16 12/03/16 12/03/16 19:00 20:00 20:18 21:05 Temp 98.8 98.8 Pulse 103 103 Resp 16 B/P 169/99 169/99 Pulse Ox 98 O2 Delivery Nasal Cannula Nasal Cannula Nasal Cannula O2 Flow Rate 2.0 2.0 2.0 12/03/16 12/03/16 12/03/16 12/04/16 21:06 21:11 23:00 03:00 Temp 97.6 97.7 97.6 97.7 Pulse 103 103 94 90 Resp 18 17 B/P 169/99 169/99 110/71 110/65 Pulse Ox 96 98 O2 Delivery Nasal Cannula Nasal Cannula O2 Flow Rate 2.0 2.0 12/04/16 12/04/16 07:00 07:34 Temp 98.5 98.5 Pulse 87 Resp 18 B/P 117/70 Pulse Ox 96 95 O2 Delivery Nasal Cannula Nasal Cannula O2 Flow Rate 2.0 2.0 Intake and Output 12/03/16 12/03/16 12/04/16 15:00 23:00 07:00 Intake Total 320 ml 2545 ml 0 ml Output Total 100 ml Balance 320 ml 2545 ml -100 ml JONATHAN KIRK MD Dec 04, 2016 08:57
--- NOTE | 2016-12-04 08:59 | PDOC ---
SUBJECTIVE Subjective Pt states that she is in a lot of pain throughout her entire body. She has not had any pain medication for a while. Discussed with nursing and her IV may not currently be functioning. She should be getting a PICC placed later today. Breathing is improved. She is still having some rectal bleeding intermittently , she is unsure of the color as she is trying not to look. OBJECTIVE Vital Signs Vital Signs Date Time Temp Pulse Resp B/P Pulse Ox O2 Delivery O2 Flow Rate FiO2 12/04/16 07:34 95 Nasal Cannula 2.0 12/04/16 07:00 98.5 87 18 117/70 96 Nasal Cannula 2.0 98.5 12/04/16 03:00 97.7 90 17 110/65 98 Nasal Cannula 2.0 97.7 12/03/16 23:00 97.6 94 18 110/71 96 Nasal Cannula 2.0 97.6 12/03/16 21:11 103 169/99 12/03/16 21:06 103 169/99 12/03/16 21:05 103 169/99 12/03/16 20:18 Nasal Cannula 2.0 12/03/16 20:00 Nasal Cannula 2.0 12/03/16 19:00 98.8 103 16 169/99 98 Nasal Cannula 2.0 98.8 12/03/16 16:50 98.8 99 16 145/84 98.8 12/03/16 16:30 98.4 98 16 158/90 98.4 12/03/16 16:20 98.6 86 16 137/62 98.6 12/03/16 16:05 97.7 93 16 154/91 97.7 12/03/16 16:00 98.0 86 16 163/88 98.0 12/03/16 15:45 98.0 91 16 143/79 98.0 12/03/16 15:35 98.5 95 16 152/88 98.5 12/03/16 15:00 97.7 100 14 123/70 100 Nasal Cannula 2.5 97.7 12/03/16 13:21 97.5 95 16 140/77 97.5 12/03/16 13:06 97.6 90 24 136/66 97.6 12/03/16 12:50 97.4 89 16 122/68 97.4 12/03/16 10:48 97.5 87 20 175/88 100 Nasal Cannula 3 97.5 12/03/16 10:24 97.5 86 20 162/78 100 Nasal Cannula 3 97.5 12/03/16 10:12 97.5 80 20 172/80 100 Nasal Cannula 3 97.5 12/03/16 09:09 97.2 87 20 100 97.2 12/03/16 09:09 Nasal Cannula 2.5 I & O Intake and Output 12/04/16 07:00 Intake Total 2865 ml Output Total 100 ml Balance 2765 ml Intake Oral 0 ml Blood Product IV Normal Saline Flush 2865 ml Estimated Blood Loss 100 ml # Voids 4 PHYSICAL EXAM Physical Exam GEN: moderate distress, AOx3 HEENT: MMM, EOMI, no scleral icterus/injection Cardiac: RRR, no M/R/G Lungs: CTAB Abd: soft, TTP suprapubic and epigastric Ext: right hand edematous, no erythema/edema LE bilaterally Neuro: CN2-12 GI Psych: pt tearful and agitated ASSESSMENT/PLAN Assessment/Plan Pt is a 41yo CF initially admitted for acute on chronic CHF, later to have GI bleed 1)Acute on chronic CHF- s/p thoracentesis and additional HD sessions. Improved. Pt is currently on Lasix 80mg TID 2)Hx of multiple myeloma- pt in remission. Continued on Acyclovir 3)Acute on chronic anemia- 2/2 GI bleed, s/p cauterization/endo-clip/epi injection and 4 units PRBC. Hb increased from 4.1 to 10.7. Pt states she is having intermittent bleeding, CTM. GI Following. Pt also receiving Pantoprazole 80mg IV q10h 4)HTN- well controlled. Currently receiving Carvedilol 25mg BID, Hydralazine 50mg TID, Clonidine patch, Norvasc 10mg QHS, Lisionpril 10mg, Imdur 30mg 5)ESRD- Renal following. Pt to get HD again today. K minimally elevated. 6)Hypothyroidism- TSH elevated at 13.304, currently receiving Levothyroxine 100mcg 7)Anxiety/Depression- pt currently receiving Paroxetine 20mg and Lorazepam 8)Asthma- pt continued on Pulmicort BID and Albuterol prn 9)Leukocytosis- pt was on high dose steroids last week. CTM for signs and symptoms of infection. 10)PEM- severe Problems: COMMENT Lab Laboratory Tests Test 12/03/16 12:25 12/03/16 19:20 White Blood Count 10.2x10^3/uL (4.0-11.0) 12.3x10^3/uL (4.0-11.0) Red Blood Count 1.27x10^6/uL (3.50-5.40) 3.60x10^6/uL (3.50-5.40) Hemoglobin 4.1g/dL (12.0-15.5) 10.7g/dL (12.0-15.5) Hematocrit 13.1% (36.0-47.0) 32.6% (36.0-47.0) Mean Corpuscular Volume 103fL (79-100) 91fL (79-100) Mean Corpuscular Hemoglobin 32pg (25-35) 30pg (25-35) Mean Corpuscular Hemoglobin Concent 31g/dL (31-37) 33g/dL (31-37) Red Cell Distribution Width 20.5% (11.5-14.5) 18.6% (11.5-14.5) Platelet Count 152x10^3/uL (140-400) 103x10^3/uL (140-400) Neutrophils (%) (Auto) 87% (31-73) 80% (31-73) Lymphocytes (%) (Auto) 8% (24-48) 10% (24-48) Monocytes (%) (Auto) 5% (0-9) 10% (0-9) Eosinophils (%) (Auto) 0% (0-3) 0% (0-3) Basophils (%) (Auto) 0% (0-3) 0% (0-3) Neutrophils # (Auto) 8.9x10^3uL (1.8-7.7) 9.9x10^3uL (1.8-7.7) Lymphocytes # (Auto) 0.8x10^3/uL (1.0-4.8) 1.2x10^3/uL (1.0-4.8) Monocytes # (Auto) 0.5x10^3/uL (0.0-1.1) 1.2x10^3/uL (0.0-1.1) Eosinophils # (Auto) 0.0x10^3/uL (0.0-0.7) 0.0x10^3/uL (0.0-0.7) Basophils # (Auto) 0.0x10^3/uL (0.0-0.2) 0.0x10^3/uL (0.0-0.2) Prothrombin Time 18.8SEC (11.7-14.0) Prothromb Time International Ratio 1.7 (0.8-1.1) GERI FIERRO MD Dec 04, 2016 08:59
[2016-12-04] MEDS: LISINOPRIL 10 MG TABLET PO SCH (09:00)
[2016-12-04] MEDS: FOLIC/VIT B COMP W-C (RENAL) TABLET. PO SCH (09:00)
[2016-12-04] MEDS: ACYCLOVIR 200 MG CAPSULE PO SCH (09:00)
[2016-12-04] MEDS: ISOSORBIDE MONONITRATE ER 30 MG TAB.ER.24H PO SCH (09:00)
[2016-12-04] MEDS: HYDRALAZINE 50 MG TABLET PO SCH (09:00)
[2016-12-04] MEDS: FUROSEMIDE 80 MG TABLET PO SCH ×2 (09:00→12:28)
[2016-12-04] MEDS: ONDANSETRON PF 4 MG/2 ML VIAL. IV PRN ×3 (09:22→20:35)
[2016-12-04 09:28] LABS: BASO % 0 % (0-3); EOS % 0 % (0-3); LYMPH # 1.8 x10^3/uL (1.0-4.8); LYMPH % 12 % (24-48); MEAN CORPUSCULAR HEMOGLOBIN 30 pg (25-35); MEAN CORPUSCULAR HGB CONC 33 g/dL (31-37); MEAN CORPUSCULAR VOLUME 91 fL (79-100); MONO % 7 % (0-9); NEUT % 81 % (31-73); PLATELET COUNT 110 x10^3/uL (140-400); RED BLOOD COUNT 2.12 x10^6/uL (3.50-5.40); RED CELL DISTRIBUTION WIDTH 18.9 % (11.5-14.5); WHITE BLOOD COUNT 15.5 x10^3/uL (4.0-11.0)
[2016-12-04 09:34] LABS: ALBUMIN 2.2 g/dL (3.4-5.0); CALCIUM 8.2 mg/dL (8.5-10.1); CREATININE 4.8 mg/dL (0.6-1.0); PHOSPHORUS 6.6 mg/dL (2.6-4.7); POTASSIUM 5.5 mmol/L (3.5-5.1)
[2016-12-04 09:54] LABS: HEMATOCRIT 19.4 % (36.0-47.0); HEMOGLOBIN 6.3 g/dL (12.0-15.5)
--- NOTE | 2016-12-04 10:03 | CONS ---
DATE OF CONSULTATION: 11/30/2016 CONSULTATION REQUESTED BY: Dr. Camila Howard. REASON FOR CONSULTATION: Multiple myeloma. HISTORY OF PRESENT ILLNESS: The patient is a 41-year-old female who was diagnosed with lambda light chain multiple myeloma in 2011. She presented to [facility] in July 2012 with severe anemia and renal failure. Workup revealed multiple myeloma. She received induction chemotherapy with Velcade and dexamethasone for 4 cycles followed by autologous stem cell transplantation in 2012. She was subsequently started on maintenance treatment with Velcade. Her most recent treatment was given on 11/16/2016. She is tolerating the treatments very well. She was admitted to [facility] on 11/27/2016 with complaints of increasing shortness of breath and increasing abdominal girth. She also had a cough, but no fever. Chest x-ray was consistent with increasing congestive heart failure and increasing effusion. Echo cardiogram had revealed mitral regurgitation. She underwent further evaluation with a CT scan of the chest on 11/28/2016 that revealed right pleural effusion. New left-sided pleural effusion, cardiomegaly, generalized anasarca. She underwent thoracentesis on 11/29/2016 for left pleural effusion and 1000 mL of thin yellow fluid was removed. Cardiology has been considering AICD implantation and wanted my opinion regarding the prognosis of multiple myeloma. PAST MEDICAL HISTORY: Anxiety, asthma, multiple myeloma as described above, depression, fibromyalgia, hypertension, pneumonia, end-stage renal disease. She is on hemodialysis. PAST SURGICAL HISTORY: Cholecystectomy, gastric bypass surgery, tubal ligation, stem cell transplantation. SOCIAL HISTORY: She is a nonsmoker. FAMILY HISTORY: Positive for hypertension. REVIEW OF SYSTEMS: A 12-point review of system was performed. Pertinent positives are mentioned in the history of present illness. Rest of the system review is negative. PHYSICAL EXAMINATION: GENERAL APPEARANCE: The patient is a 41-year-old female who is in no acute cardiorespiratory distress. VITAL SIGNS: Blood pressure 172/100, heart rate 109, temperature 97.7. HEENT: Atraumatic, normocephalic. Eyes: No icterus. NECK: Supple. CHEST: Bilaterally symmetrical, decreased air entry in the base bilaterally. HEART: S1, S2 normal. ABDOMEN: Soft, nontender. No hepatosplenomegaly. CENTRAL NERVOUS SYSTEM: No focal deficits. LYMPHATICS: No lymphadenopathy. SKIN: No rashes. PSYCHOLOGIC: Mood and affect are appropriate. MUSCULOSKELETAL: No joint effusions. LABORATORY DATA: WBC 4.1, hemoglobin 9.1, platelet count 141, creatinine 4.3, calcium 8.7, alkaline phosphatase 126, total protein 6.6, albumin 3.0. Echocardiogram on 06/05/2016 revealed left ventricular ejection fraction to be at 50% and moderate mitral regurgitation was also noted. Followup echocardiogram from 11/28/2016 is worse, which revealed borderline concentric left ventricular hypertrophy, left ventricular systolic function is severely impaired, ejection fraction is 25-30%. Mild to moderate mitral regurgitation is noted. IMPRESSION AND PLAN: 1. Multiple myeloma diagnosed in 07/2012. She has had stem cell transplantation in 2012. She has been on Velcade treatment since 2011 and maintenance treatment since 2012. Although Velcade has potential risks for cardiotoxicity, I doubt if it is related to Velcade as she has not had any symptoms since the initiation in 2011. Appreciate Cardiology and Pulmonary consultation. Etiology could be mitral regurgitation, hypertension besides other possibilities. Continue follow up per Cardiology. The multiple myeloma is under very good control and hence the prognosis is reasonably good, although not curable. She may get a few more years with ongoing treatment of multiple myeloma. Cardiology has been planning to put an AICD implant, which I think is reasonable to pursue if needed. 2. Congestive heart failure. Appreciate Cardiology and Pulmonary management. I do not suspect infiltrative cardiomyopathy since her myeloma is under good control. I do not think this is related to Velcade as she has been on Velcade since 2011. 3. Anemia secondary to end-stage renal disease. Continue to monitor. 4. End-stage renal disease due to multiple myeloma. She is on hemodialysis. 5. I discussed with Dr. Arsenio Gunderson. JONATHAN KIRK MD DR: CAMPBELL/dejuan JOB#: [id number] / [id number] MTDD
--- NOTE | 2016-12-04 10:50 | PDOC ---
SUBJECTIVE ROS ESRD hungry and wants to eat CVS: no Orthopnea, no CP RESP: no SOB, no [place] GI: min Nausea, + Vomiting : no Dysuria, no Urgency OBJECTIVE Vital Signs Vital Signs Date Time Temp Pulse Resp B/P Pulse Ox O2 Delivery O2 Flow Rate FiO2 12/04/16 09:23 17 95 Nasal Cannula 2.0 12/04/16 07:00 98.5 87 117/70 98.5 I & 0 Intake and Output 12/04/16 07:00 Intake Total 2865 ml Output Total 100 ml Balance 2765 ml Intake Oral 0 ml Blood Product IV Normal Saline Flush 2865 ml Estimated Blood Loss 100 ml # Voids 4 PHYSICAL EXAM Physical Exam General Appearance: Awake Alert Oriented x 3 In no resp Distress Eyes: VIsion Unchanged Conjunctiva Normal EN: No EN Drainage Mucous Memb. moist Neck: no JVD min JVP Supple no Thyromegaly CVS: S1 S2 soft Murmur No Gallop No Rub + Edema Resp: Gigi basla Rales no Rhonchi no Acc. Muscle use GI: BAS +ve NO Bruit Non Tender Non Distended : no CVA tenderness; no Suprapubic Tenderness DIAGNOSIS/ASSESSMENT Assessment & Plan ESRD: Dialysis as below F 180 NR 3.5 Hrs 2 K 2.5 Ca 140 Na 35 HC03 Qb 350 + Qd 500+ Heparin 0 Units Uf 1-2 kg below previous post HD weight as tolerated Transfuse 2-3 Units PRCBC's on HD (panding recehck Hgb) May give 25-50 gms of 25% Albumin if needed to maintain Hemodynamic stability Treatment plan reviewed and discussed with sonographer ^K - suspect due to GI Bleed gI BLeed - rehcek hgb and transfuse - defer to GI to reval need for Endoscopy Anemia: Start Epogen if hgb < 10 after. . Transfuse with next HD as needed. (not active on txp list) HTN: reval after fluid status optimiztiaon. Current BP meds reviewed. See orders for changes. ABI: Bone & Mineral: Follow Phos and alter bidner regimen - improving with current regiemn, OP Compliance with same is debateable Skin changes / Hardening - Skin Bx to r/o Calciphylaxis - pending path Previous Fluid overload - now better today clinically - challlenge Dry wt as betzaida Discussed Plan of Care and prognosis etc. at length with pt at [facility] COMMENT/RELEVANT DATA Meds Current Medications Medications (Trade) Dose Ordered Sig/Jamila Start Time Stop Time Status Last Admin Dose Admin Acetaminophen (Tylenol) 500 mg PRN Q6HRS PRN 11/28/16 07:15 11/30/16 06:13 500 MG Acetaminophen/ Hydrocodone Bitart (Lortab 7.5/325) 1 tab PRN Q4HRS PRN 11/28/16 07:15 12/02/16 21:37 1 TAB Acyclovir (Zovirax) 200 mg BID 11/28/16 09:00 12/03/16 21:04 200 MG Albuterol Sulfate (Ventolin Neb Soln) 2.5 mg PRN Q4HRS PRN 11/28/16 05:15 12/02/16 12:23 2.5 MG Albuterol/ Ipratropium (Duoneb) 3 ml RTQID 11/28/16 08:00 11/29/16 07:59 DC 11/29/16 06:06 3 ML Amino Acids/ Glycerin/ Electrolytes (Procalamine) 1,000 ml @ 80 mls/hr [id number] 12/03/16 19:45 12/03/16 21:05 80 MLS/HR Amlodipine Besylate (Norvasc) 10 mg HS 11/28/16 21:00 12/03/16 21:05 10 MG Aspirin (Ecotrin) 81 mg [id number] 11/30/16 16:00 12/02/16 10:37 81 MG Budesonide 0.5 mg 0.5 mg RTBID 11/28/16 08:00 12/04/16 07:31 0.5 MG Bupivacaine HCl/ Epinephrine Bitart (Sensorcain-Mpf Epi 0.5%-1:[id number]) 30 ml STK-MED ONCE 11/29/16 13:57 11/29/16 13:58 DC 11/29/16 16:47 9 ML Carvedilol (Coreg) 25 mg BIDWMEALS 11/30/16 17:00 12/03/16 21:06 25 MG Cetirizine HCl (Zyrtec) 10 mg QHS 11/28/16 21:00 12/03/16 21:04 10 MG Clonidine HCl (Catapres Tts-2) 1 patch WEEKLY 11/29/16 14:30 11/29/16 18:05 1 PATCH Clonidine HCl (Catapres) 0.3 mg TID 11/28/16 09:00 11/29/16 14:02 DC 11/28/16 20:54 0.3 MG Darbepoetin Apolinar (Aranesp) 60 mcg Tu 11/28/16 21:00 11/28/16 20:53 60 MCG Diclofenac Epolamine (Flector) 1 patch BID 11/28/16 09:00 11/28/16 14:38 DC Dicyclomine HCl (Bentyl) 20 mg PRN TID PRN 11/28/16 07:45 11/28/16 09:02 20 MG Diphenhydramine HCl (Benadryl) 25 mg 1X PRN PRN 11/29/16 09:00 11/30/16 08:59 DC Ephedrine Sulfate 50 mg STK-MED ONCE 12/03/16 09:24 12/03/16 09:25 DC Fentanyl Citrate (Fentanyl 2ml Vial) 50 mcg PRN Q4HRS PRN 12/01/16 17:30 12/02/16 03:21 50 MCG Fentanyl Citrate 50 mcg 50 mcg PRN Q5MIN PRN 11/29/16 09:30 11/30/16 03:58 DC 11/29/16 17:38 50 MCG Folic Acid/ Multivitamins/Vit B12 (Nephro-Sheree) 1 tab DAILY 11/28/16 09:00 12/02/16 10:36 1 TAB Furosemide (Lasix) 80 mg TID@,,11/28/16 09:00 12/03/16 21:06 80 MG Hydralazine HCl (Apresoline) 50 mg TID 11/30/16 15:30 12/03/16 21:11 50 MG Info (PHARMACY MONITORING -- do not chart) 1 each PRN DAILY PRN 12/03/16 17:30 UNV Info 1 each 1 each PRN DAILY PRN 12/03/16 17:30 UNV Isosorbide Mononitrate (Imdur) 30 mg DAILY 11/28/16 09:00 12/02/16 10:36 30 MG Lactated Ringer's (Iv Lactated Ringers) 1,000 ml @ 0 mls/hr Q0M 11/29/16 09:16 11/29/16 21:15 DC Lactobacillus Acidophilus (Bacid, Maren-Bid) 1 tab TIDWMEALS 11/28/16 08:00 12/02/16 17:53 1 TAB Levothyroxine Sodium (Synthroid) 100 mcg DAILY07 12/01/16 14:00 12/02/16 06:12 100 MCG Lidocaine HCl (Lidocaine Pf 2% Vial) 5 ml STK-MED ONCE 12/03/16 09:24 12/03/16 09:25 DC Lidocaine/ Prilocaine (Emla) 1 nirav PRN QID PRN 11/28/16 07:15 Lidocaine/Sodium Bicarbonate (Buffered Lidocaine 1%) 3 ml 1X ONCE 11/29/16 12:45 11/29/16 12:46 DC 11/29/16 14:32 6 ML Lisinopril (Prinivil) 10 mg DAILY 11/28/16 09:00 12/02/16 10:38 10 MG Loperamide HCl (Imodium) 2 mg PRN Q15MIN PRN 11/28/16 07:15 Lorazepam (Ativan) 1 mg PRN Q6HRS PRN 11/28/16 07:15 12/03/16 21:06 1 MG Magnesium Sulfate/ Dextrose (Magnesium Sulfate PREMIX 2GM) 50 ml @ 25 mls/hr PRN DAILY PRN 11/28/16 10:45 Methocarbamol (Robaxin) 1,500 mg PRN QID PRN 11/28/16 07:15 11/30/16 23:37 1,500 MG Methylprednisolone Sodium Succinate (Solu-Medrol 40mg Vial) 60 mg Q6HRS 11/28/16 00:00 12/03/16 13:20 DC 12/03/16 00:24 60 MG Methylprednisolone Sodium Succinate (Solu-Medrol 125mg Vial) 125 mg 1X ONCE 11/27/16 19:30 11/27/16 19:31 DC 11/27/16 19:49 125 MG Midazolam HCl (Versed) 2 mg STK-MED ONCE 11/29/16 16:44 11/29/16 16:45 DC Montelukast Sodium (Singulair) 10 mg QHS 12/02/16 21:00 12/03/16 21:04 10 MG Morphine Sulfate 2 mg 2 mg PRN Q2HR PRN 12/03/16 10:30 12/04/16 09:23 2 MG Non-Formulary Medication 8 mg PRN BID PRN 11/28/16 07:15 11/30/16 10:18 DC Ondansetron HCl (Zofran Odt) 8 mg PRN BID PRN 11/30/16 10:30 12/02/16 19:11 8 MG Ondansetron HCl (Zofran) 8 mg PRN Q6HRS PRN 11/29/16 14:45 12/04/16 09:22 8 MG Pantoprazole Sodium (Protonix) 40 mg DAILYAC 11/30/16 09:30 12/03/16 07:43 DC 12/02/16 10:37 40 MG Pantoprazole Sodium 40 mg 40 mg DAILYAC 12/03/16 08:00 12/03/16 08:00 DC Pantoprazole Sodium 80 mg/ Sodium Chloride 100 ml @ 10 mls/hr Q10H 12/03/16 08:00 12/03/16 18:57 10 MLS/HR Paroxetine HCl (Paxil) 20 mg QHS 11/28/16 21:00 12/03/16 21:04 20 MG Prochlorperazine (Compazine) 25 mg PRN Q12HR PRN 12/03/16 22:00 Prochlorperazine Edisylate (Compazine) 5 mg PACU PRN PRN 11/29/16 09:30 11/30/16 03:58 DC Propofol (Diprivan) 20 ml @ As Directed STK-MED ONCE 12/03/16 09:23 12/03/16 09:24 DC Regadenoson (Lexiscan) 0.4 mg 1X ONCE 12/01/16 08:15 12/01/16 08:16 DC 12/01/16 09:28 0.4 MG Sevelamer Carbonate (Renvela) 800 mg TIDWMEALS 11/28/16 08:00 12/02/16 17:53 800 MG Sodium Chloride (Iv Sodium Chloride 0.9% 1000ml Bag) 1,000 ml @ 400 mls/hr Q2H30M PRN 12/03/16 17:19 12/04/16 05:18 DC Lab Laboratory Tests Test 12/03/16 12:25 12/03/16 19:20 12/04/16 08:40 White Blood Count 10.2x10^3/uL (4.0-11.0) 12.3x10^3/uL (4.0-11.0) 15.5x10^3/uL (4.0-11.0) Red Blood Count 1.27x10^6/uL (3.50-5.40) 3.60x10^6/uL (3.50-5.40) 2.12x10^6/uL (3.50-5.40) Hemoglobin 4.1g/dL (12.0-15.5) 10.7g/dL (12.0-15.5) 6.3g/dL (12.0-15.5) Hematocrit 13.1% (36.0-47.0) 32.6% (36.0-47.0) 19.4% (36.0-47.0) Mean Corpuscular Volume 103fL (79-100) 91fL (79-100) 91fL (79-100) Mean Corpuscular Hemoglobin 32pg (25-35) 30pg (25-35) 30pg (25-35) Mean Corpuscular Hemoglobin Concent 31g/dL (31-37) 33g/dL (31-37) 33g/dL (31-37) Red Cell Distribution Width 20.5% (11.5-14.5) 18.6% (11.5-14.5) 18.9% (11.5-14.5) Platelet Count 152x10^3/uL (140-400) 103x10^3/uL (140-400) 110x10^3/uL (140-400) Neutrophils (%) (Auto) 87% (31-73) 80% (31-73) 81% (31-73) Lymphocytes (%) (Auto) 8% (24-48) 10% (24-48) 12% (24-48) Monocytes (%) (Auto) 5% (0-9) 10% (0-9) 7% (0-9) Eosinophils (%) (Auto) 0% (0-3) 0% (0-3) 0% (0-3) Basophils (%) (Auto) 0% (0-3) 0% (0-3) 0% (0-3) Neutrophils # (Auto) 8.9x10^3uL (1.8-7.7) 9.9x10^3uL (1.8-7.7) 12.6x10^3uL (1.8-7.7) Lymphocytes # (Auto) 0.8x10^3/uL (1.0-4.8) 1.2x10^3/uL (1.0-4.8) 1.8x10^3/uL (1.0-4.8) Monocytes # (Auto) 0.5x10^3/uL (0.0-1.1) 1.2x10^3/uL (0.0-1.1) 1.0x10^3/uL (0.0-1.1) Eosinophils # (Auto) 0.0x10^3/uL (0.0-0.7) 0.0x10^3/uL (0.0-0.7) 0.0x10^3/uL (0.0-0.7) Basophils # (Auto) 0.0x10^3/uL (0.0-0.2) 0.0x10^3/uL (0.0-0.2) 0.0x10^3/uL (0.0-0.2) Prothrombin Time 18.8SEC (11.7-14.0) Prothromb Time International Ratio 1.7 (0.8-1.1) Sodium Level 139mmol/L (136-145) Potassium Level 5.5mmol/L (3.5-5.1) Chloride Level 101mmol/L (98-107) Carbon Dioxide Level 26mmol/L (21-32) Anion Gap 12 (6-14) Blood Urea Nitrogen 88mg/dL (7-20) Creatinine 4.8mg/dL (0.6-1.0) Estimated GFR (Cockcroft-Gault) 10.0 Glucose Level 87mg/dL (70-99) Calcium Level 8.2mg/dL (8.5-10.1) Phosphorus Level 6.6mg/dL (2.6-4.7) Albumin 2.2g/dL (3.4-5.0) MITRA TAVAREZ MD Dec 04, 2016 10:50
[2016-12-04 11:11] LABS: RED BLOOD COUNT 1.82 x10^6/uL (3.50-5.40); RED CELL DISTRIBUTION WIDTH 18.7 % (11.5-14.5)
--- NOTE | 2016-12-04 11:17 | CONS ---
DATE OF CONSULTATION: 12/03/2016 REASON FOR CONSULTATION: Acute blood loss anemia with melena. HISTORY OF PRESENT ILLNESS: A 41-year-old female with past medical history significant for end-stage renal disease with hypertension, fibromyalgia, multiple myeloma, anxiety, asthma, status post cholecystectomy, gastric bypass, tubal ligation, left arm fistula and bone marrow transplant, was seen with passage of dark blood per rectum. She has been in the hospital recently for dyspnea and was being cleared for possible parathyroidectomy. With ongoing issues, she was kept in the hospital and she began bleeding overnight with cramping, increased dyspnea and approximately 300 mL of blood per rectum. With her continued symptoms, consultation is requested. PAST MEDICAL HISTORY: Anxiety, asthma, cancer, multiple myeloma, hypertension, renal failure. PAST SURGICAL HISTORY: Status post cholecystectomy, gastric bypass, tubal ligation, left arm fistula, bone marrow transplant. MEDICATIONS: Pantoprazole, montelukast, levothyroxine, carvedilol, aspirin, hydralazine, clonidine, ____, diphenhydramine, Paxil, amlodipine, lisinopril, isosorbide, Lasix, acyclovir, budesonide. SOCIAL HISTORY: She does not drink or smoke at this time, on disability. FAMILY HISTORY: Noncontributory. REVIEW OF SYSTEMS: Per records. PHYSICAL EXAMINATION: GENERAL: Reveals a pale white female. VITAL SIGNS: Temperature is 98.6, pulse 82, respirations 14, blood pressure is 116/66. HEENT: Normocephalic and atraumatic. Pupils and extraocular muscles not tested. Sclerae anicteric. NECK: Supple. LUNGS: Clear. CARDIOVASCULAR: Reveals S1, S2 without S3, S4 or appreciable murmur. ABDOMEN: Reveals previous multiple surgical incisions, epigastric tenderness to deep palpation without appreciable hepatosplenomegaly. EXTREMITIES: Reveals no cyanosis, clubbing, edema. LABORATORY STUDIES: Sodium ____, potassium 5.8, chloride 99, BUN ____, creatinine 5.3, glucose 133, calcium is 8.5, phosphorus 7.7, magnesium 1.9, albumin is 2.8, total bilirubin is 1.0. Hemoglobin 6.7, AST is 9.1, platelet count is 141 from previous day and white count is 4.1. IMPRESSION: Melena with multiple myeloma, on aspirin therapy, end-stage renal disease, status post gastric bypass. Differential includes ulcers secondary to aspirin and stomach ulcers secondary to gastric bypass, malignancy, AVMs, ischemic colitis, colon cancer, colon polyps, and/or diverticular disorders. We will recommend the patient proceed with upper endoscopy to further assess her symptoms with PPI drip in the interim as well as transfusional support. If upper endoscopy is unrevealing for bleeding proximal to the ligament of Treitz and the visible sections of the stomach, then a bleeding scan and possible CTA would be pursued. Surgery is already on board with ____ who is originally planning for eventual parathyroidectomy with her end-stage renal disease and possible systemic calciphylaxis. I would like to thank Dr. Elliott for allowing us to participate in this critically ill patient's care. JESE CARTER MD DR: JORGE/dejuan JOB#: [id number] / [id number] ecc Aden ELLIOTT MD
[2016-12-04 11:20] LABS: HEMOGLOBIN 5.6 g/dL (12.0-15.5)
--- NOTE | 2016-12-04 11:51 | PDOC ---
Subjective: Subjective: Per pt - thinks she's still bleeding. Some abd pain. Objective: Objective: Per RN - passing elmira blood. Transferring to ICU. Vital Signs: Vital Signs Date Time Temp Pulse Resp B/P Pulse Ox O2 Delivery O2 Flow Rate FiO2 12/04/16 09:23 17 95 Nasal Cannula 2.0 12/04/16 07:00 98.5 87 117/70 98.5 Labs: Laboratory Tests Test 12/03/16 12:25 12/03/16 19:20 12/04/16 08:40 12/04/16 11:00 White Blood Count 10.2x10^3/uL 12.3x10^3/uL 15.5x10^3/uL 11.0x10^3/uL Red Blood Count 1.27x10^6/uL 3.60x10^6/uL 2.12x10^6/uL 1.82x10^6/uL Hemoglobin 4.1g/dL 10.7g/dL 6.3g/dL 5.6g/dL Hematocrit 13.1% 32.6% 19.4% 17.0% Mean Corpuscular Volume 103fL 91fL 91fL 93fL Mean Corpuscular Hemoglobin 32pg 30pg 30pg 31pg Mean Corpuscular Hemoglobin Concent 31g/dL 33g/dL 33g/dL 33g/dL Red Cell Distribution Width 20.5% 18.6% 18.9% 18.7% Platelet Count 152x10^3/uL 103x10^3/uL 110x10^3/uL 9x10^3/uL Neutrophils (%) (Auto) 87% 80% 81% Lymphocytes (%) (Auto) 8% 10% 12% Monocytes (%) (Auto) 5% 10% 7% Eosinophils (%) (Auto) 0% 0% 0% Basophils (%) (Auto) 0% 0% 0% Neutrophils # (Auto) 8.9x10^3uL 9.9x10^3uL 12.6x10^3uL Lymphocytes # (Auto) 0.8x10^3/uL 1.2x10^3/uL 1.8x10^3/uL Monocytes # (Auto) 0.5x10^3/uL 1.2x10^3/uL 1.0x10^3/uL Eosinophils # (Auto) 0.0x10^3/uL 0.0x10^3/uL 0.0x10^3/uL Basophils # (Auto) 0.0x10^3/uL 0.0x10^3/uL 0.0x10^3/uL Prothrombin Time 18.8SEC Prothromb Time International Ratio 1.7 Platelet Estimate Pending Sodium Level 139mmol/L Potassium Level 5.5mmol/L Chloride Level 101mmol/L Carbon Dioxide Level 26mmol/L Anion Gap 12 Blood Urea Nitrogen 88mg/dL Creatinine 4.8mg/dL Estimated GFR (Cockcroft-Gault) 10.0 Glucose Level 87mg/dL Calcium Level 8.2mg/dL Phosphorus Level 6.6mg/dL Albumin 2.2g/dL PE: GEN: NAD LUNGS: nasal cannula HEART: RRR ABD: LLQ tenderness NEURO/PSYCH: A & O 3 A/P: Melena, anemia -Hgb 5.6 Gastric ulcer s/o cautery/endo-clip/epi inj 12/03 S/p gastric bypass -- Transfer to ICU in process. D/w Dr. Quintero - consult IR for embolization. AYAH ESPINOSA Dec 04, 2016 11:51
[2016-12-04] MEDS ORDERED: LIDOCAINE 1% PF 2 ML VIAL. ONE (14:48)
[2016-12-04] MEDS ORDERED: CONTRAST GIVEN MC PRN ×2 (16:00→17:15)
[2016-12-04] MEDS ORDERED: IOHEXOL 350 MG/ML 100ML VIAL. IV ONE (16:00)
[2016-12-04 16:04] LABS: NUCLEATED RBC 2
[2016-12-04 16:06] LABS: ANISOCYTOSIS MOD; PLT ESTIMATE DECREASED (ADEQUATE); POLYCHROMASIA SLIGHT; TOXIC GRANULATION MOD
[2016-12-04 16:50] LABS: RED BLOOD COUNT 1.62 x10^6/uL (3.50-5.40); RED CELL DISTRIBUTION WIDTH 18.8 % (11.5-14.5); WHITE BLOOD COUNT 12.7 x10^3/uL (4.0-11.0)
--- NOTE | 2016-12-04 17:07 | RAD ---
CTA of the abdomen and pelvis with and without contrast, 12/04/2016: History: GI tract bleeding Multidetector CT imaging was performed prior to and following an IV bolus injection of iodinated contrast material. The postcontrast scans were obtained in arterial and portal venous phases. The abdominal aorta is of normal caliber with minimal scattered atherosclerotic plaquing. Scattered coronary calcifications are noted. The origins of the celiac, superior mesenteric and renal arteries are widely patent. A patent inferior mesenteric artery is evident. The iliac arteries are unremarkable. There are multiple surgical clips related to the stomach. No contrast extravasation is delineated in this region or other portions of the GI tract to suggest active GI tract bleeding. Incidental findings include the presence of a moderate-sized left pleural effusion and a small right pleural effusion. There is underlying atelectasis in the lung bases. There is moderate generalized anasarca. Several hepatic cysts are present. The normal renal parenchyma is largely replaced by numerous small cysts. No free air is identified in the abdomen or pelvis. 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 IMPRESSION: 1. No CTA evidence of active GI tract bleeding. 2. Miscellaneous findings as described above.
[2016-12-04] MEDS ORDERED: GELATIN SPONGE SIZE 12-7MM SPONGE. ONE (17:09)
[2016-12-04] MEDS ORDERED: MIDAZOLAM HCL 2 MG/2 ML VIAL. ONE (17:10)
[2016-12-04 17:12] LABS: HEMATOCRIT 15.2 % (36.0-47.0); HEMOGLOBIN 4.9 g/dL (12.0-15.5)
[2016-12-04] MEDS ORDERED: HEPARIN for ARTERIAL LINE 1,500 ML ONE (17:13)
[2016-12-04] MEDS ORDERED: MIDAZOLAM HCL 2 MG/2 ML VIAL. IV ONE (17:15)
[2016-12-04] MEDS ORDERED: FENTANYL PF 100 MCG/2 ML VIAL. IV ONE (17:15)
[2016-12-04] MEDS ORDERED: LIDOCAINE 1% / SOD BICARB 8.4% 20 ML VIAL. IJ ONE (17:15)
[2016-12-04] MEDS ORDERED: IOHEXOL 300 MG/ML 100ML VIAL. IART ONE (17:15)
[2016-12-04] MEDS ORDERED: DIPHENHYDRAMINE 50 MG/ML VIAL IVP ONE (18:15)
--- NOTE | 2016-12-04 20:10 | PDOC ---
MODERATE SEDATION ASSESSMENT RISKS/ALTERNATIVES Risks/Alternatives Risks and alternatives of this type of sedation and procedure discussed with: RISK/ALTERNATIVES: Patient H & P ON CHART H & P H & P on chart and reviewed for co-morbid conditions and appropriate labs. H&P ON CHART: Yes STATUS PREG STATUS ASSESSED: Yes MEDS/ALLERGIES REVIEWED Meds/Allergies Reviewed Medications and Allergies including time and route of recently administered narcotics and sedatives. MEDS/ALLERGIES REVIEWED: Yes ASA RATING ASA RATING: III AIRWAY ASSESSMENT Airway Assessment Airway patency, oral function limitations, presence of caps, crowns, dentures, partials, and ability to extend neck assessed. AIRWAY ASSESSMENT: Yes MALLAMPATI SCORE MALLAMPATI SCORE: III PRE-SEDATION ASSESSMENT PRE-SEDATION ASSESSMENT: Yes SAMUEL ARMANDO MD Dec 04, 2016 20:10
--- NOTE | 2016-12-04 20:41 | PDOC ---
Exam Densitometer Reader Densitometer Reader Davidson Order Checker Packer Processer Order Checker Packer Processer Ritesh Barnes Pre-Procedure Diagnosis Pre-Procedure Diagnosis 41 YO female with known proximal stomach ulceration, s/p EGD with cautery, epi injection, and endo clip placement. Continued bleeding with severe acute blood loss anemia, with critical hgb of 4.9. Although CTA negative for active bleeding, prophylactic Gelfoam embo of LGA distribution requested by GI----Solange is considered a poor surgical candidate by General Surgery. Post-Procedure Diagnosis Post-Procedure Diagnosis Same. No active bleeding demonstrated. Procedure Performed Procedure Performed Celicac + selective/superselective LGA injections. Empirical Gelfoam embolization of LGA branches. Type of Anesthesia Type of Anesthesia Local + Mod sedation Estimated Blood Loss EBL: 50 cc Condition of Patient Condition of Patient Hemodynamically stable. No apparent complication. Disposition Disposition From IR return to ICU. Hopefully empirical LGA embo will help with bleeding. Agree with aggressive pRBC + FFP transfusion, with serial CBC + coags. Full report to follow. SAMUEL ARMANDO MD Dec 04, 2016 20:41
[2016-12-04] MEDS: MONTELUKAST SODIUM 10 MG TABLET. PO SCH (21:00)
[2016-12-04] MEDS: DIPHENHYDRAMINE HCL 25 MG CAPSULE PO SCH (21:00)
[2016-12-04] MEDS: CETIRIZINE HCL 10 MG TABLET PO SCH (21:00)
[2016-12-04] MEDS: hydrALAZINE 20 MG/ML VIAL. IVP PRN (21:01)
[2016-12-04] MEDS ORDERED: DIALYSIS PATIENT. MC PRN (21:45)
[2016-12-04 22:57] LABS: HEMATOCRIT 32.5 % (36.0-47.0); HEMOGLOBIN 10.9 g/dL (12.0-15.5); RED BLOOD COUNT 3.59 x10^6/uL (3.50-5.40); RED CELL DISTRIBUTION WIDTH 15.7 % (11.5-14.5); WHITE BLOOD COUNT 17.9 x10^3/uL (4.0-11.0)
[2016-12-04 23:04] LABS: INR 1.2 (0.8-1.1); PROTHROMBIN TIME PATIENT 14.5 SEC (11.7-14.0)
[2016-12-05] VITALS (16 sets, daily range): BP systolic 109–220; BP diastolic 66–96
[2016-12-05] MEDS: hydrALAZINE 20 MG/ML VIAL. IVP PRN (00:42)
[2016-12-05] MEDS: ACYCLOVIR 200 MG CAPSULE PO SCH ×3 (00:44→21:03)
[2016-12-05] MEDS: CARVEDILOL 12.5 MG TABLET PO SCH ×3 (00:45→17:40)
[2016-12-05] MEDS: HYDRALAZINE 50 MG TABLET PO SCH ×4 (00:46→21:04)
[2016-12-05] MEDS: FUROSEMIDE 80 MG TABLET PO SCH ×4 (00:46→17:40)
[2016-12-05] MEDS: AMLODIPINE BESYLATE 10 MG TABLET PO SCH ×2 (00:47→21:04)
[2016-12-05] MEDS: PAROXETINE 20 MG TABLET. PO SCH ×2 (00:47→21:04)
[2016-12-05] MEDS: MORPHINE SULFATE 2 MG/ML DISP.SYRIN. IV PRN ×7 (00:49→21:06)
[2016-12-05] MEDS: ONDANSETRON PF 4 MG/2 ML VIAL. IV PRN ×4 (03:28→21:05)
[2016-12-05] MEDS: PANTOPRAZOLE SODIUM IV 80 MG in IV NORMAL SALINE 100ML 100 ML IV SCH ×3 (04:32→15:15)
[2016-12-05 06:53] LABS: ALBUMIN 2.7 g/dL (3.4-5.0); CALCIUM 8.4 mg/dL (8.5-10.1); CREATININE 2.9 mg/dL (0.6-1.0); GFR 17.9; PHOSPHORUS 4.9 mg/dL (2.6-4.7)
[2016-12-05 06:59] LABS: BASO % 0 % (0-3); EOS % 0 % (0-3); HEMATOCRIT 29.3 % (36.0-47.0); LYMPH # 0.7 x10^3/uL (1.0-4.8); LYMPH % 4 % (24-48); MEAN CORPUSCULAR HEMOGLOBIN 31 pg (25-35); MEAN CORPUSCULAR HGB CONC 34 g/dL (31-37); MEAN CORPUSCULAR VOLUME 90 fL (79-100); MONO % 6 % (0-9); NEUT % 90 % (31-73); PLATELET COUNT 69 x10^3/uL (140-400); RED BLOOD COUNT 3.25 x10^6/uL (3.50-5.40); RED CELL DISTRIBUTION WIDTH 15.7 % (11.5-14.5); WHITE BLOOD COUNT 17.2 x10^3/uL (4.0-11.0)
--- NOTE | 2016-12-05 07:00 | RAD ---
Selective/superselective visceral arteriogram with transmicrocatheter Gelfoam embolization Indication: 41-year-old female with continued bleeding, status post endoscopic cauterization, epinephrine injection, and Endo clipping of proximal gastric ulcer. Critical hemoglobin of 4.9. Considered interoperable by general surgery. Although no active GI bleeding was demonstrated at CTA, empirical Gelfoam embolization of left gastric artery distribution has been requested by GI. Vessel selected: Celiac trunk (first order), left gastric artery (second order), left gastric artery branches x3 (third order), and left hepatic artery arising from left gastric artery (third order). Vessels embolized: Left gastric artery and left gastric artery branches x3 Fluoroscopy time: 54.5 minutes Kerma-area Product: 1257 Gycm2 Contrast material: 180 cc Omnipaque 300 Anesthesia: 163 minutes moderate sedation was provided utilizing a total of 4 mg Versed and 200 mcg fentanyl, IV. The patient was appropriately monitored by a qualified independent observer throughout the time of moderate sedation. Consent: The procedure was explained in its entirety to the patient and/or the patient's designated branch service representative by a member of the treatment team. This included a discussion of risks and benefits and commonly accepted alternatives to the procedure, as well as expected consequences of no treatment at all. Discussion of risks included, but was not limited to, those that are most frequent and those that are rare, but possibly severe or life-threatening, as well as the possibility of unforeseen complications. Sterility: All elements of maximal sterile barrier technique were utilized, including cap, mask, sterile gown, sterile gloves, large sterile sheet, appropriate hand hygiene, and 2% chlorhexidine for cutaneous antisepsis. Procedure: Informed consent was obtained from the patient. She was placed supine on the angiography table. Preliminary ultrasound examination of right groin revealed wide patency of right common femoral artery, which was documented with a single hard copy ultrasound image. Right groin was then prepped and draped in the usual sterile fashion, utilizing all elements of maximal sterile barrier technique, as described above. Moderate sedation was provided with IV Versed and fentanyl. Using aseptic technique, local anesthesia, direct ultrasound guidance, and the micropuncture system, a 6 Swazi Toni 2 right common femoral artery sheath was successfully introduced. Celiac trunk injection: The 6 Swazi Toni 2 sheath was easily advanced into the celiac trunk, utilizing fluoroscopic guidance. Omnipaque 300 was injected and DSA images were obtained in AP and steep GOTTLIEB projections. Findings: Celiac trunk, common hepatic artery, and splenic artery are widely patent. A smaller caliber left gastric artery arises from distal celiac trunk, near junction of common hepatic and splenic arteries. Left hepatic artery arises from left gastric artery, a relatively common anatomic variation. No active extravasation of injected contrast material was demonstrated. Left gastric artery injection/Gelfoam embolization: A 5 Swazi Mikaelsson catheter was advanced through the Toni sheath into celiac trunk. The Toni sheath was then withdrawn over the Mikaelsson catheter into juxta renal abdominal aorta. A 2.4 Swazi ProGreat microcatheter was coaxially inserted through the Mikaelsson catheter and was successfully advanced into left gastric artery. Dilute Omnipaque 300 was injected through the microcatheter and DSA images were obtained, which confirmed left hepatic artery arising from left gastric artery. The 2.4 Swazi microcatheter was then advanced over a Terum[employer] GT microguidewire into distal left gastric artery, beyond takeoff of left hepatic artery. This was confirmed with contrast injection. Transmicrocatheter particulate embolization of distal left gastric artery was then carefully performed utilizing Gelfoam slurry, under magnification fluoroscopic guidance. Dilute Omnipaque was again injected through the microcatheter and post embolization images were obtained, which revealed sluggish, but persistent antegrade flow within 2 small distal left gastric artery branches. Additional superselective embolization of those branches was considered indicated. Of note, no active GI bleed was demonstrated on any of the above injections. Selection, injection, and Gelfoam embolization of 2 distal left gastric artery branches: Using fluoroscopic guidance, the 2.4 Swazi microcatheter was sequentially advanced into the 2 LGA distal branches. Satisfactory position within each branch was confirmed with contrast injection. No active GI bleeding was demonstrated. Sequential trans-microcatheter Gelfoam embolization of the 2 distal branches was then carefully performed, with magnification fluoroscopic guidance. The microcatheter was then withdrawn into distal left gastric artery. Dilute Omnipaque was again injected and DSA images were obtained, which revealed satisfactory embolization. Left hepatic artery injection: In order to exclude accessory left gastric artery branches arising from left hepatic artery, selective injection of that vessel was considered indicated. The 2.4 Swazi microcatheter, previously positioned within distal left gastric artery, was retracted, and then was easily advanced over the Terumo GT microguidewire into left hepatic artery. Omnipaque 300 was injected and DSA images were obtained in multiple projections. The left hepatic artery, replaced to left gastric artery, is widely patent. No accessory left gastric artery branches were identified. Selection, injection, and a Gelfoam embolization of proximal left gastric artery branch: The microcatheter was then removed and Omnipaque 300 was injected through the Mikaelsson catheter, previously positioned within celiac trunk, and DSA images were obtained. Those images revealed sluggish flow within left gastric artery trunk, as well as contrast opacification of a large caliber proximal left gastric artery branch. Embolization of that vessel was considered indicated. A 2.8 Swazi ProGreat microcatheter was then coaxially advanced through the Mikaelsson catheter, and was easily directed into the proximal left gastric artery branch over a [employer] GT microguidewire. Satisfactory position of the microcatheter was confirmed with contrast injection. No active GI bleed was demonstrated. Transmicrocatheter Gelfoam embolization of the proximal left gastric artery branch was then carefully performed under magnification fluoroscopic guidance. Embolization was slowly continued until stasis of flow was achieved within the left gastric artery branch, as demonstrated on post embolization DSA images. Additional, very tiny, serpiginous proximal left gastric artery branches were identified, however, these vessels were too small for successful microcatheter selection. The microcatheter was then removed. Omnipaque 300 was injected through the Mikaelsson catheter, and completion celiac DSA images were obtained. Those images revealed sluggish flow throughout left gastric artery trunk, with absent opacification of the embolized the left gastric artery branches. Note was also made of absent visualization of left hepatic artery, which would raise the question of inadvertent nontarget embolization of that vessel--given widely patent portal vein demonstrated on the prior abdominal CTA, this would likely be well-tolerated. The Toni sheath was removed and hemostasis was achieved at the right groin puncture site utilizing the Angio-Seal system. The patient tolerated the procedure well, and was returned from the angiography suite to the intensive care unit and hemodynamically stable condition. Impression: Selective/superselective celiac/left gastric arteriogram, with empirical transmicrocatheter Gelfoam embolization of left gastric artery distribution, as described. No active GI bleed was demonstrated on multiple selective/superselective injections..
[2016-12-05] MEDS: BUDESONIDE 0.5 MG/2 ML NEBU NEB SCH ×2 (08:00→18:06)
[2016-12-05] MEDS: ASPIRIN ENTERIC COATED 81 MG TABLET.DR. PO SCH (08:00)
[2016-12-05] MEDS: LACTOBACILLUS ACIDOPH & BULGAR 1 TABLET. PO SCH ×3 (08:00→17:40)
[2016-12-05] MEDS: SEVELAMER CARBONATE 800 MG TABLET. PO SCH ×3 (08:00→17:40)
--- NOTE | 2016-12-05 08:02 | PDOC ---
Subjective: Subjective: Per pt - no bleeding, abd pain about the same. Objective: Objective: Per RN - no further bleeding. Last BM w/ dark blood was yesterday afternoon prior to IR embolization. C/o abd pain. Has transfused 7 units pRBCs total, 2 units FFP. Vital Signs: Vital Signs Date Time Temp Pulse Resp B/P Pulse Ox O2 Delivery O2 Flow Rate FiO2 12/05/16 06:24 18 97 Nasal Cannula 3.0 12/05/16 06:00 87 180/72 12/05/16 04:00 98.1 98.1 Labs: Laboratory Tests Test 12/04/16 08:40 12/04/16 11:00 12/04/16 16:00 12/04/16 16:45 White Blood Count 15.5x10^3/uL 11.0x10^3/uL 12.7x10^3/uL Red Blood Count 2.12x10^6/uL 1.82x10^6/uL 1.62x10^6/uL Hemoglobin 6.3g/dL 5.6g/dL 4.9g/dL Hematocrit 19.4% 17.0% 15.2% Mean Corpuscular Volume 91fL 93fL 94fL Mean Corpuscular Hemoglobin 30pg 31pg 30pg Mean Corpuscular Hemoglobin Concent 33g/dL 33g/dL 32g/dL Red Cell Distribution Width 18.9% 18.7% 18.8% Platelet Count 110x10^3/uL 9x10^3/uL 83x10^3/uL Neutrophils (%) (Auto) 81% Lymphocytes (%) (Auto) 12% Monocytes (%) (Auto) 7% Eosinophils (%) (Auto) 0% Basophils (%) (Auto) 0% Neutrophils # (Auto) 12.6x10^3uL Lymphocytes # (Auto) 1.8x10^3/uL Monocytes # (Auto) 1.0x10^3/uL Eosinophils # (Auto) 0.0x10^3/uL Basophils # (Auto) 0.0x10^3/uL Segmented Neutrophils % 88% Lymphocytes % 3% Monocytes % 8% Myelocytes % 1% Nucleated Red Blood Cells 2 Toxic Granulation Mod Platelet Estimate Decreased Polychromasia Slight Anisocytosis Mod Sodium Level 139mmol/L Potassium Level 5.5mmol/L Chloride Level 101mmol/L Carbon Dioxide Level 26mmol/L Anion Gap 12 Blood Urea Nitrogen 88mg/dL Creatinine 4.8mg/dL Estimated GFR (Cockcroft-Gault) 10.0 Glucose Level 87mg/dL Calcium Level 8.2mg/dL Phosphorus Level 6.6mg/dL Albumin 2.2g/dL Nasal Screen MRSA (PCR) Negative Test 12/04/16 22:45 12/05/16 06:20 White Blood Count 17.9x10^3/uL 17.2x10^3/uL Red Blood Count 3.59x10^6/uL 3.25x10^6/uL Hemoglobin 10.9g/dL 10.0g/dL Hematocrit 32.5% 29.3% Mean Corpuscular Volume 91fL 90fL Mean Corpuscular Hemoglobin 30pg 31pg Mean Corpuscular Hemoglobin Concent 34g/dL 34g/dL Red Cell Distribution Width 15.7% 15.7% Platelet Count 86x10^3/uL 69x10^3/uL Prothrombin Time 14.5SEC Prothromb Time International Ratio 1.2 Neutrophils (%) (Auto) 90% Lymphocytes (%) (Auto) 4% Monocytes (%) (Auto) 6% Eosinophils (%) (Auto) 0% Basophils (%) (Auto) 0% Neutrophils # (Auto) 15.5x10^3uL Lymphocytes # (Auto) 0.7x10^3/uL Monocytes # (Auto) 1.0x10^3/uL Eosinophils # (Auto) 0.0x10^3/uL Basophils # (Auto) 0.0x10^3/uL Sodium Level 141mmol/L Potassium Level 4.0mmol/L Chloride Level 101mmol/L Carbon Dioxide Level 30mmol/L Anion Gap 10 Blood Urea Nitrogen 44mg/dL Creatinine 2.9mg/dL Estimated GFR (Cockcroft-Gault) 17.9 Glucose Level 85mg/dL Calcium Level 8.4mg/dL Phosphorus Level 4.9mg/dL Albumin 2.7g/dL Imaging: CTA A/P 12/04/16 The abdominal aorta is of normal caliber with minimal scattered atherosclerotic plaquing. Scattered coronary calcifications are noted. The origins of the celiac , superior mesenteric and renal arteries are widely patent. A patent inferior mesenteric artery is evident. The iliac arteries are unremarkable. There are multiple surgical clips related to the stomach. No contrast extravasation is delineated in this region or other portions of the GI tract to suggest active GI tract bleeding. Incidental findings include the presence of a moderate-sized left pleural effusion and a small right pleural effusion. There is underlying atelectasis in the lung bases. There is moderate generalized anasarca. Several hepatic cysts are present. The normal renal parenchyma is largely replaced by numerous small cysts. No free air is identified in the abdomen or pelvis. 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 IMPRESSION: 1. No CTA evidence of active GI tract bleeding. 2. Miscellaneous findings as described above. IR 12/04/16 Celicac + selective/superselective LGA injections. Empirical Gelfoam embolization of LGA branches. PE: GEN: NAD LUNGS: clear anteriorly w/ nasal cannula HEART: RRR ABD: tender epigastrium, BLQ NEURO/PSYCH: A & O 3 A/P: Melena, anemia -Hgb now 10 (from 4.9 to 10.9 last night) s/p transfusions w/o recurrent bleeding Gastric ulcer -s/p cautery/endo-clip/epi inj 12/03 -CTA neg for bleeding, s/p celiac + LGA injections, empiric embolization of LGA branches 12/04 -surgery consulted as well S/p gastric bypass HTN, ESRD -- Hgb stable. Continue to monitor. Possible transfer if rebleeds. AYAH ESPINOSA Dec 05, 2016 08:02
--- NOTE | 2016-12-05 08:26 | PDOC ---
SURGICAL PROGRESS NOTE Subjective Pt with c/o epigastric pain and back pain, no further bleeding, stable overnight Vital Signs Vital Signs Date Time Temp Pulse Resp B/P Pulse Ox O2 Delivery O2 Flow Rate FiO2 12/05/16 06:24 18 97 Nasal Cannula 3.0 12/05/16 06:00 87 180/72 12/05/16 04:00 98.1 98.1 I&O Intake and Output 12/05/16 07:00 Intake Total 100 ml Output Total 950 ml Balance -850 ml Intake Oral 0 ml Blood Product IV Normal Saline Flush 80 ml Other 20 ml Output Urine Total 450 ml Urine/Stool Mix 500 ml General: Alert, Oriented X3, Cooperative, mild distress Abdomen: Soft, Other (mild TTP epigastric) Labs Laboratory Tests Test 12/03/16 12:25 12/03/16 19:20 12/04/16 08:40 12/04/16 11:00 White Blood Count 10.2x10^3/uL (4.0-11.0) 12.3x10^3/uL (4.0-11.0) 15.5x10^3/uL (4.0-11.0) 11.0x10^3/uL (4.0-11.0) Red Blood Count 1.27x10^6/uL (3.50-5.40) 3.60x10^6/uL (3.50-5.40) 2.12x10^6/uL (3.50-5.40) 1.82x10^6/uL (3.50-5.40) Hemoglobin 4.1g/dL (12.0-15.5) 10.7g/dL (12.0-15.5) 6.3g/dL (12.0-15.5) 5.6g/dL (12.0-15.5) Hematocrit 13.1% (36.0-47.0) 32.6% (36.0-47.0) 19.4% (36.0-47.0) 17.0% (36.0-47.0) Mean Corpuscular Volume 103fL (79-100) 91fL (79-100) 91fL (79-100) 93fL (79- 100) Mean Corpuscular Hemoglobin 32pg (25-35) 30pg (25-35) 30pg (25-35) 31pg (25- 35) Mean Corpuscular Hemoglobin Concent 31g/dL (31-37) 33g/dL (31-37) 33g/dL (31-37) 33g/dL (31-37) Red Cell Distribution Width 20.5% (11.5-14.5) 18.6% (11.5-14.5) 18.9% (11.5-14.5) 18.7% (11.5-14.5) Platelet Count 152x10^3/uL (140-400) 103x10^3/uL (140-400) 110x10^3/uL (140-400) 9x10^3/uL (140-400) Neutrophils (%) (Auto) 87% (31-73) 80% (31-73) 81% (31-73) Lymphocytes (%) (Auto) 8% (24-48) 10% (24-48) 12% (24-48) Monocytes (%) (Auto) 5% (0-9) 10% (0-9) 7% (0-9) Eosinophils (%) (Auto) 0% (0-3) 0% (0-3) 0% (0-3) Basophils (%) (Auto) 0% (0-3) 0% (0-3) 0% (0-3) Neutrophils # (Auto) 8.9x10^3uL (1.8-7.7) 9.9x10^3uL (1.8-7.7) 12.6x10^3uL (1.8-7.7) Lymphocytes # (Auto) 0.8x10^3/uL (1.0-4.8) 1.2x10^3/uL (1.0-4.8) 1.8x10^3/uL (1.0-4.8) Monocytes # (Auto) 0.5x10^3/uL (0.0-1.1) 1.2x10^3/uL (0.0-1.1) 1.0x10^3/uL (0.0-1.1) Eosinophils # (Auto) 0.0x10^3/uL (0.0-0.7) 0.0x10^3/uL (0.0-0.7) 0.0x10^3/uL (0.0-0.7) Basophils # (Auto) 0.0x10^3/uL (0.0-0.2) 0.0x10^3/uL (0.0-0.2) 0.0x10^3/uL (0.0-0.2) Prothrombin Time 18.8SEC (11.7-14.0) Prothromb Time International Ratio 1.7 (0.8-1.1) Segmented Neutrophils % 88% (35-66) Lymphocytes % 3% (24-48) Monocytes % 8% (0-10) Myelocytes % 1% (0-0) Nucleated Red Blood Cells 2 Toxic Granulation Mod Platelet Estimate Decreased (ADEQUATE) Polychromasia Slight Anisocytosis Mod Sodium Level 139mmol/L (136-145) Potassium Level 5.5mmol/L (3.5-5.1) Chloride Level 101mmol/L (98-107) Carbon Dioxide Level 26mmol/L (21-32) Anion Gap 12 (6-14) Blood Urea Nitrogen 88mg/dL (7-20) Creatinine 4.8mg/dL (0.6-1.0) Estimated GFR (Cockcroft-Gault) 10.0 Glucose Level 87mg/dL (70-99) Calcium Level 8.2mg/dL (8.5-10.1) Phosphorus Level 6.6mg/dL (2.6-4.7) Albumin 2.2g/dL (3.4-5.0) Test 12/04/16 16:00 12/04/16 16:45 12/04/16 22:45 12/05/16 06:20 Nasal Screen MRSA (PCR) Negative (Negative) White Blood Count 12.7x10^3/uL (4.0-11.0) 17.9x10^3/uL (4.0-11.0) 17.2x10^3/uL (4.0-11.0) Red Blood Count 1.62x10^6/uL (3.50-5.40) 3.59x10^6/uL (3.50-5.40) 3.25x10^6/uL (3.50-5.40) Hemoglobin 4.9g/dL (12.0-15.5) 10.9g/dL (12.0-15.5) 10.0g/dL (12.0-15.5) Hematocrit 15.2% (36.0-47.0) 32.5% (36.0-47.0) 29.3% (36.0-47.0) Mean Corpuscular Volume 94fL (79-100) 91fL (79-100) 90fL (79-100) Mean Corpuscular Hemoglobin 30pg (25-35) 30pg (25-35) 31pg (25-35) Mean Corpuscular Hemoglobin Concent 32g/dL (31-37) 34g/dL (31-37) 34g/dL (31-37) Red Cell Distribution Width 18.8% (11.5-14.5) 15.7% (11.5-14.5) 15.7% (11.5-14.5) Platelet Count 83x10^3/uL (140-400) 86x10^3/uL (140-400) 69x10^3/uL (140-400) Prothrombin Time 14.5SEC (11.7-14.0) Prothromb Time International Ratio 1.2 (0.8-1.1) Neutrophils (%) (Auto) 90% (31-73) Lymphocytes (%) (Auto) 4% (24-48) Monocytes (%) (Auto) 6% (0-9) Eosinophils (%) (Auto) 0% (0-3) Basophils (%) (Auto) 0% (0-3) Neutrophils # (Auto) 15.5x10^3uL (1.8-7.7) Lymphocytes # (Auto) 0.7x10^3/uL (1.0-4.8) Monocytes # (Auto) 1.0x10^3/uL (0.0-1.1) Eosinophils # (Auto) 0.0x10^3/uL (0.0-0.7) Basophils # (Auto) 0.0x10^3/uL (0.0-0.2) Sodium Level 141mmol/L (136-145) Potassium Level 4.0mmol/L (3.5-5.1) Chloride Level 101mmol/L (98-107) Carbon Dioxide Level 30mmol/L (21-32) Anion Gap 10 (6-14) Blood Urea Nitrogen 44mg/dL (7-20) Creatinine 2.9mg/dL (0.6-1.0) Estimated GFR (Cockcroft-Gault) 17.9 Glucose Level 85mg/dL (70-99) Calcium Level 8.4mg/dL (8.5-10.1) Phosphorus Level 4.9mg/dL (2.6-4.7) Albumin 2.7g/dL (3.4-5.0) Laboratory Tests Test 12/04/16 08:40 12/04/16 11:00 12/04/16 16:00 12/04/16 16:45 White Blood Count 15.5x10^3/uL (4.0-11.0) 11.0x10^3/uL (4.0-11.0) 12.7x10^3/uL (4.0-11.0) Red Blood Count 2.12x10^6/uL (3.50-5.40) 1.82x10^6/uL (3.50-5.40) 1.62x10^6/uL (3.50-5.40) Hemoglobin 6.3g/dL (12.0-15.5) 5.6g/dL (12.0-15.5) 4.9g/dL (12.0-15.5) Hematocrit 19.4% (36.0-47.0) 17.0% (36.0-47.0) 15.2% (36.0-47.0) Mean Corpuscular Volume 91fL (79-100) 93fL (79-100) 94fL (79-100) Mean Corpuscular Hemoglobin 30pg (25-35) 31pg (25-35) 30pg (25-35) Mean Corpuscular Hemoglobin Concent 33g/dL (31-37) 33g/dL (31-37) 32g/dL (31-37) Red Cell Distribution Width 18.9% (11.5-14.5) 18.7% (11.5-14.5) 18.8% (11.5-14.5) Platelet Count 110x10^3/uL (140-400) 9x10^3/uL (140-400) 83x10^3/uL (140-400) Neutrophils (%) (Auto) 81% (31-73) Lymphocytes (%) (Auto) 12% (24-48) Monocytes (%) (Auto) 7% (0-9) Eosinophils (%) (Auto) 0% (0-3) Basophils (%) (Auto) 0% (0-3) Neutrophils # (Auto) 12.6x10^3uL (1.8-7.7) Lymphocytes # (Auto) 1.8x10^3/uL (1.0-4.8) Monocytes # (Auto) 1.0x10^3/uL (0.0-1.1) Eosinophils # (Auto) 0.0x10^3/uL (0.0-0.7) Basophils # (Auto) 0.0x10^3/uL (0.0-0.2) Segmented Neutrophils % 88% (35-66) Lymphocytes % 3% (24-48) Monocytes % 8% (0-10) Myelocytes % 1% (0-0) Nucleated Red Blood Cells 2 Toxic Granulation Mod Platelet Estimate Decreased (ADEQUATE) Polychromasia Slight Anisocytosis Mod Sodium Level 139mmol/L (136-145) Potassium Level 5.5mmol/L (3.5-5.1) Chloride Level 101mmol/L (98-107) Carbon Dioxide Level 26mmol/L (21-32) Anion Gap 12 (6-14) Blood Urea Nitrogen 88mg/dL (7-20) Creatinine 4.8mg/dL (0.6-1.0) Estimated GFR (Cockcroft-Gault) 10.0 Glucose Level 87mg/dL (70-99) Calcium Level 8.2mg/dL (8.5-10.1) Phosphorus Level 6.6mg/dL (2.6-4.7) Albumin 2.2g/dL (3.4-5.0) Nasal Screen MRSA (PCR) Negative (Negative) Test 12/04/16 22:45 12/05/16 06:20 White Blood Count 17.9x10^3/uL (4.0-11.0) 17.2x10^3/uL (4.0-11.0) Red Blood Count 3.59x10^6/uL (3.50-5.40) 3.25x10^6/uL (3.50-5.40) Hemoglobin 10.9g/dL (12.0-15.5) 10.0g/dL (12.0-15.5) Hematocrit 32.5% (36.0-47.0) 29.3% (36.0-47.0) Mean Corpuscular Volume 91fL (79-100) 90fL (79-100) Mean Corpuscular Hemoglobin 30pg (25-35) 31pg (25-35) Mean Corpuscular Hemoglobin Concent 34g/dL (31-37) 34g/dL (31-37) Red Cell Distribution Width 15.7% (11.5-14.5) 15.7% (11.5-14.5) Platelet Count 86x10^3/uL (140-400) 69x10^3/uL (140-400) Prothrombin Time 14.5SEC (11.7-14.0) Prothromb Time International Ratio 1.2 (0.8-1.1) Neutrophils (%) (Auto) 90% (31-73) Lymphocytes (%) (Auto) 4% (24-48) Monocytes (%) (Auto) 6% (0-9) Eosinophils (%) (Auto) 0% (0-3) Basophils (%) (Auto) 0% (0-3) Neutrophils # (Auto) 15.5x10^3uL (1.8-7.7) Lymphocytes # (Auto) 0.7x10^3/uL (1.0-4.8) Monocytes # (Auto) 1.0x10^3/uL (0.0-1.1) Eosinophils # (Auto) 0.0x10^3/uL (0.0-0.7) Basophils # (Auto) 0.0x10^3/uL (0.0-0.2) Sodium Level 141mmol/L (136-145) Potassium Level 4.0mmol/L (3.5-5.1) Chloride Level 101mmol/L (98-107) Carbon Dioxide Level 30mmol/L (21-32) Anion Gap 10 (6-14) Blood Urea Nitrogen 44mg/dL (7-20) Creatinine 2.9mg/dL (0.6-1.0) Estimated GFR (Cockcroft-Gault) 17.9 Glucose Level 85mg/dL (70-99) Calcium Level 8.4mg/dL (8.5-10.1) Phosphorus Level 4.9mg/dL (2.6-4.7) Albumin 2.7g/dL (3.4-5.0) Problem List Problems Medical Problems: (1) Accelerated hypertension Status: Acute (2) Acute on chronic diastolic congestive heart failure due to valvular disease Status: Acute (3) Bilateral pleural effusion Status: Acute (4) Cardiomyopathy Status: Acute (5) COPD with acute exacerbation Status: Acute (6) End stage renal disease Status: Acute Assessment/Plan asked to reengage for anastamotic ulcer bleeding s/p EGD clipping and angioembolization appears stable and hgb stable at this time pt poor surgical candidate given multiple comorbidities, but clinically appears to be improving will follow cont PPI Problems: ROBERTO AGUIRRE MD Dec 05, 2016 08:26
--- NOTE | 2016-12-05 08:48 | PDOC ---
SUBJECTIVE Subjective Pt says she is no longer bleeding. She is having a lot of abdominal pain/back pain and nausea. OBJECTIVE Vital Signs Vital Signs Date Time Temp Pulse Resp B/P Pulse Ox O2 Delivery O2 Flow Rate FiO2 12/05/16 06:24 18 97 Nasal Cannula 3.0 12/05/16 06:00 87 18 180/72 98 Nasal Cannula 2.0 12/05/16 05:00 92 18 175/75 97 Nasal Cannula 2.0 12/05/16 04:00 98.1 92 18 171/74 97 Nasal Cannula 3.0 98.1 12/05/16 04:00 Nasal Cannula 2.0 12/05/16 03:56 24 98 Nasal Cannula 2.0 12/05/16 03:26 20 98 Nasal Cannula 4.0 12/05/16 03:00 87 18 178/80 98 Nasal Cannula 3.0 12/05/16 02:00 97 20 205/85 98 Nasal Cannula 4.0 12/05/16 01:00 98 20 213/78 98 Nasal Cannula 4.0 12/05/16 00:49 98 Nasal Cannula 4.0 12/05/16 00:47 97 225/94 12/05/16 00:46 97 225/94 12/05/16 00:45 99 225/94 12/05/16 00:42 97 225/94 12/05/16 00:01 97.1 97 20 220/96 98 Nasal Cannula 4.0 97.1 12/04/16 23:59 Nasal Cannula 4.0 12/04/16 23:00 97 20 225/94 98 Nasal Cannula 4.0 12/04/16 22:00 90 20 218/85 99 Nasal Cannula 4.0 12/04/16 21:38 97.8 90 20 203/86 97.8 12/04/16 21:30 97.9 91 18 203/83 99 Nasal Cannula 4.0 97.9 12/04/16 21:23 97.8 90 22 218/85 97.8 12/04/16 21:15 94 18 194/85 98 Nasal Cannula 4.0 12/04/16 21:08 97.9 91 24 247/93 97.9 12/04/16 21:02 100 Nasal Cannula 5.0 12/04/16 21:01 89 243/88 12/04/16 21:00 97.6 84 18 243/88 97 Nasal Cannula 4.0 97.6 12/04/16 20:53 97.6 89 20 243/88 97.6 12/04/16 20:45 94 18 254/99 97 Nasal Cannula 4.0 12/04/16 20:33 100 Nasal Cannula 5.0 12/04/16 20:30 97.6 90 18 228/76 97 Nasal Cannula 4.0 97.6 12/04/16 20:04 87 16 100 Nasal Cannula 4.0 12/04/16 20:02 14 100 Nasal Cannula 4.0 12/04/16 20:00 Nasal Cannula 4.0 12/04/16 18:47 98.0 81 18 162/65 98.0 12/04/16 17:43 98.2 88 18 158/63 98.2 12/04/16 17:16 98.4 87 16 180/73 98.4 12/04/16 16:00 Nasal Cannula 3.0 12/04/16 14:41 16 Nasal Cannula 3.0 12/04/16 12:30 97.6 84 18 108/75 97 Nasal Cannula 2.0 97.6 12/04/16 12:28 18 100 Nasal Cannula 3.0 12/04/16 12:00 Nasal Cannula 2.0 12/04/16 09:23 17 95 Nasal Cannula 2.0 12/04/16 09:00 87 117/70 12/04/16 09:00 87 117/70 12/04/16 09:00 87 117/70 I & O Intake and Output 12/05/16 07:00 Intake Total 100 ml Output Total 950 ml Balance -850 ml Intake Oral 0 ml Blood Product IV Normal Saline Flush 80 ml Other 20 ml Output Urine Total 450 ml Urine/Stool Mix 500 ml PHYSICAL EXAM Physical Exam GEN: mild distress, AOx3 HEENT: MMM, EOMI, no scleral icterus/injection Cardiac: RRR, no M/R/G Lungs: CTAB Abd: soft, TTP suprapubic and epigastric Ext: right hand edematous, no erythema/edema LE bilaterally Neuro: CN2-12 GI Psych: pt mildly agitated and in discomfort ASSESSMENT/PLAN Assessment/Plan Pt is a 41yo CF initially admitted for acute on chronic CHF, found later to have GI bleed 1)Acute on chronic CHF- s/p thoracentesis and additional HD sessions. Improved. Pt is currently on Lasix 80mg TID 2)Hx of multiple myeloma- pt in remission. Continued on Acyclovir 3)Acute on chronic anemia- 2/2 GI bleed, s/p cauterization/endo-clip/epi injection and 4 units PRBC, initially. Hb increased from 4.1 to 10.7 and then dropped back down. Pt is now s/p gelfoam embolization of left gastric artery and 3 more units PRBC and 2 units FFP. Bleeding has resolved. GI Following. 4)HTN- currently uncontrolled. Currently receiving Carvedilol 25mg BID, Hydralazine 50mg TID, Clonidine patch, Norvasc 10mg QHS, Lisionpril 10mg, Imdur 30mg. Will have Hydralazine IV prn. 5)ESRD- Renal following, s/p HD yesterday. Electrolytes improved today 6)Hypothyroidism- TSH elevated at 13.304, currently receiving Levothyroxine 100mcg 7)Anxiety/Depression- pt currently receiving Paroxetine 20mg and Lorazepam 8)Asthma- pt continued on Pulmicort BID and Albuterol prn 9)Leukocytosis- pt was on high dose steroids last week. CTM for signs and symptoms of infection. Slightly decreased this morning, no fevers. Blood culture ordered. Pt denies any infective symptoms. 10)PEM- severe Problems: COMMENT Lab Laboratory Tests Test 12/04/16 11:00 12/04/16 16:00 12/04/16 16:45 12/04/16 22:45 White Blood Count 11.0x10^3/uL (4.0-11.0) 12.7x10^3/uL (4.0-11.0) 17.9x10^3/uL (4.0-11.0) Red Blood Count 1.82x10^6/uL (3.50-5.40) 1.62x10^6/uL (3.50-5.40) 3.59x10^6/uL (3.50-5.40) Hemoglobin 5.6g/dL (12.0-15.5) 4.9g/dL (12.0-15.5) 10.9g/dL (12.0-15.5) Hematocrit 17.0% (36.0-47.0) 15.2% (36.0-47.0) 32.5% (36.0-47.0) Mean Corpuscular Volume 93fL (79-100) 94fL (79-100) 91fL (79-100) Mean Corpuscular Hemoglobin 31pg (25-35) 30pg (25-35) 30pg (25-35) Mean Corpuscular Hemoglobin Concent 33g/dL (31-37) 32g/dL (31-37) 34g/dL (31-37) Red Cell Distribution Width 18.7% (11.5-14.5) 18.8% (11.5-14.5) 15.7% (11.5-14.5) Platelet Count 9x10^3/uL (140-400) 83x10^3/uL (140-400) 86x10^3/uL (140-400) Nasal Screen MRSA (PCR) Negative (Negative) Prothrombin Time 14.5SEC (11.7-14.0) Prothromb Time International Ratio 1.2 (0.8-1.1) Test 12/05/16 06:20 White Blood Count 17.2x10^3/uL (4.0-11.0) Red Blood Count 3.25x10^6/uL (3.50-5.40) Hemoglobin 10.0g/dL (12.0-15.5) Hematocrit 29.3% (36.0-47.0) Mean Corpuscular Volume 90fL (79-100) Mean Corpuscular Hemoglobin 31pg (25-35) Mean Corpuscular Hemoglobin Concent 34g/dL (31-37) Red Cell Distribution Width 15.7% (11.5-14.5) Platelet Count 69x10^3/uL (140-400) Neutrophils (%) (Auto) 90% (31-73) Lymphocytes (%) (Auto) 4% (24-48) Monocytes (%) (Auto) 6% (0-9) Eosinophils (%) (Auto) 0% (0-3) Basophils (%) (Auto) 0% (0-3) Neutrophils # (Auto) 15.5x10^3uL (1.8-7.7) Lymphocytes # (Auto) 0.7x10^3/uL (1.0-4.8) Monocytes # (Auto) 1.0x10^3/uL (0.0-1.1) Eosinophils # (Auto) 0.0x10^3/uL (0.0-0.7) Basophils # (Auto) 0.0x10^3/uL (0.0-0.2) Sodium Level 141mmol/L (136-145) Potassium Level 4.0mmol/L (3.5-5.1) Chloride Level 101mmol/L (98-107) Carbon Dioxide Level 30mmol/L (21-32) Anion Gap 10 (6-14) Blood Urea Nitrogen 44mg/dL (7-20) Creatinine 2.9mg/dL (0.6-1.0) Estimated GFR (Cockcroft-Gault) 17.9 Glucose Level 85mg/dL (70-99) Calcium Level 8.4mg/dL (8.5-10.1) Phosphorus Level 4.9mg/dL (2.6-4.7) Albumin 2.7g/dL (3.4-5.0) GERI FIERRO MD Dec 05, 2016 08:48
[2016-12-05] MEDS: ISOSORBIDE MONONITRATE ER 30 MG TAB.ER.24H PO SCH (08:56)
[2016-12-05] MEDS: LISINOPRIL 10 MG TABLET PO SCH (08:56)
[2016-12-05] MEDS: ONDANSETRON ODT 4 MG TAB.RAPDIS PO PRN (08:56)
[2016-12-05] MEDS: LEVOTHYROXINE 100 MCG TABLET PO SCH (08:56)
[2016-12-05] MEDS: FOLIC/VIT B COMP W-C (RENAL) TABLET. PO SCH (08:58)
[2016-12-05] MEDS: AA 3%/ELECTROLYTE-TPN SOLN/GLY 1,000 ML IV SCH (09:15)
--- NOTE | 2016-12-05 09:19 | PDOC ---
PROGRESS NOTES Subjective Subjective c.c - f/u of Multiple myeloma Objective Objective Vital Signs Date Time Temp Pulse Resp B/P Pulse Ox O2 Delivery O2 Flow Rate FiO2 12/05/16 08:57 23 Nasal Cannula 2.0 12/05/16 08:56 87 180/72 12/05/16 06:24 97 12/05/16 04:00 98.1 98.1 Intake and Output 12/05/16 07:00 Intake Total 100 ml Output Total 950 ml Balance -850 ml Intake Oral 0 ml Blood Product IV Normal Saline Flush 80 ml Other 20 ml Output Urine Total 450 ml Urine/Stool Mix 500 ml Physical Exam Heart: Normal S1, Normal S2 General: Alert, Oriented X3 Neuro: Normal speech Psych/Mental Status: Mental status NL Assessment Assessment Problems Medical Problems: (1) Accelerated hypertension Status: Acute (2) Acute on chronic diastolic congestive heart failure due to valvular disease Status: Acute (3) Bilateral pleural effusion Status: Acute (4) Cardiomyopathy Status: Acute (5) COPD with acute exacerbation Status: Acute (6) End stage renal disease Status: Acute A/P: 1. Multiple myeloma, currently on chemo with velcade and well controlled.. 2. Dyspnea secondary to acute on chronic congestive heart failure, I do not think it is related to velcade or MM. He myeloma is under very good control. Appreciate cardiology management. . 3. End-stage renal disease, on hemodialysis. 4. Anemia due to GI bleed, monitor Hb - EGD 12/03/16 : s/p gastric bypass gastric ulcer below GE junction S/p cautery/endo-clip/ epi injection with cessation of bleeding. Hb stable at 10 Comment Review of Relevant I have reviewed the following items ernesto (where applicable) has been applied. Labs Laboratory Tests Test 12/03/16 12:25 12/03/16 19:20 12/04/16 08:40 12/04/16 11:00 White Blood Count 10.2x10^3/uL (4.0-11.0) 12.3x10^3/uL (4.0-11.0) 15.5x10^3/uL (4.0-11.0) 11.0x10^3/uL (4.0-11.0) Red Blood Count 1.27x10^6/uL (3.50-5.40) 3.60x10^6/uL (3.50-5.40) 2.12x10^6/uL (3.50-5.40) 1.82x10^6/uL (3.50-5.40) Hemoglobin 4.1g/dL (12.0-15.5) 10.7g/dL (12.0-15.5) 6.3g/dL (12.0-15.5) 5.6g/dL (12.0-15.5) Hematocrit 13.1% (36.0-47.0) 32.6% (36.0-47.0) 19.4% (36.0-47.0) 17.0% (36.0-47.0) Mean Corpuscular Volume 103fL (79-100) 91fL (79-100) 91fL (79-100) 93fL (79- 100) Mean Corpuscular Hemoglobin 32pg (25-35) 30pg (25-35) 30pg (25-35) 31pg (25- 35) Mean Corpuscular Hemoglobin Concent 31g/dL (31-37) 33g/dL (31-37) 33g/dL (31-37) 33g/dL (31-37) Red Cell Distribution Width 20.5% (11.5-14.5) 18.6% (11.5-14.5) 18.9% (11.5-14.5) 18.7% (11.5-14.5) Platelet Count 152x10^3/uL (140-400) 103x10^3/uL (140-400) 110x10^3/uL (140-400) 9x10^3/uL (140-400) Neutrophils (%) (Auto) 87% (31-73) 80% (31-73) 81% (31-73) Lymphocytes (%) (Auto) 8% (24-48) 10% (24-48) 12% (24-48) Monocytes (%) (Auto) 5% (0-9) 10% (0-9) 7% (0-9) Eosinophils (%) (Auto) 0% (0-3) 0% (0-3) 0% (0-3) Basophils (%) (Auto) 0% (0-3) 0% (0-3) 0% (0-3) Neutrophils # (Auto) 8.9x10^3uL (1.8-7.7) 9.9x10^3uL (1.8-7.7) 12.6x10^3uL (1.8-7.7) Lymphocytes # (Auto) 0.8x10^3/uL (1.0-4.8) 1.2x10^3/uL (1.0-4.8) 1.8x10^3/uL (1.0-4.8) Monocytes # (Auto) 0.5x10^3/uL (0.0-1.1) 1.2x10^3/uL (0.0-1.1) 1.0x10^3/uL (0.0-1.1) Eosinophils # (Auto) 0.0x10^3/uL (0.0-0.7) 0.0x10^3/uL (0.0-0.7) 0.0x10^3/uL (0.0-0.7) Basophils # (Auto) 0.0x10^3/uL (0.0-0.2) 0.0x10^3/uL (0.0-0.2) 0.0x10^3/uL (0.0-0.2) Prothrombin Time 18.8SEC (11.7-14.0) Prothromb Time International Ratio 1.7 (0.8-1.1) Segmented Neutrophils % 88% (35-66) Lymphocytes % 3% (24-48) Monocytes % 8% (0-10) Myelocytes % 1% (0-0) Nucleated Red Blood Cells 2 Toxic Granulation Mod Platelet Estimate Decreased (ADEQUATE) Polychromasia Slight Anisocytosis Mod Sodium Level 139mmol/L (136-145) Potassium Level 5.5mmol/L (3.5-5.1) Chloride Level 101mmol/L (98-107) Carbon Dioxide Level 26mmol/L (21-32) Anion Gap 12 (6-14) Blood Urea Nitrogen 88mg/dL (7-20) Creatinine 4.8mg/dL (0.6-1.0) Estimated GFR (Cockcroft-Gault) 10.0 Glucose Level 87mg/dL (70-99) Calcium Level 8.2mg/dL (8.5-10.1) Phosphorus Level 6.6mg/dL (2.6-4.7) Albumin 2.2g/dL (3.4-5.0) Test 12/04/16 16:00 12/04/16 16:45 12/04/16 22:45 12/05/16 06:20 Nasal Screen MRSA (PCR) Negative (Negative) White Blood Count 12.7x10^3/uL (4.0-11.0) 17.9x10^3/uL (4.0-11.0) 17.2x10^3/uL (4.0-11.0) Red Blood Count 1.62x10^6/uL (3.50-5.40) 3.59x10^6/uL (3.50-5.40) 3.25x10^6/uL (3.50-5.40) Hemoglobin 4.9g/dL (12.0-15.5) 10.9g/dL (12.0-15.5) 10.0g/dL (12.0-15.5) Hematocrit 15.2% (36.0-47.0) 32.5% (36.0-47.0) 29.3% (36.0-47.0) Mean Corpuscular Volume 94fL (79-100) 91fL (79-100) 90fL (79-100) Mean Corpuscular Hemoglobin 30pg (25-35) 30pg (25-35) 31pg (25-35) Mean Corpuscular Hemoglobin Concent 32g/dL (31-37) 34g/dL (31-37) 34g/dL (31-37) Red Cell Distribution Width 18.8% (11.5-14.5) 15.7% (11.5-14.5) 15.7% (11.5-14.5) Platelet Count 83x10^3/uL (140-400) 86x10^3/uL (140-400) 69x10^3/uL (140-400) Prothrombin Time 14.5SEC (11.7-14.0) Prothromb Time International Ratio 1.2 (0.8-1.1) Neutrophils (%) (Auto) 90% (31-73) Lymphocytes (%) (Auto) 4% (24-48) Monocytes (%) (Auto) 6% (0-9) Eosinophils (%) (Auto) 0% (0-3) Basophils (%) (Auto) 0% (0-3) Neutrophils # (Auto) 15.5x10^3uL (1.8-7.7) Lymphocytes # (Auto) 0.7x10^3/uL (1.0-4.8) Monocytes # (Auto) 1.0x10^3/uL (0.0-1.1) Eosinophils # (Auto) 0.0x10^3/uL (0.0-0.7) Basophils # (Auto) 0.0x10^3/uL (0.0-0.2) Sodium Level 141mmol/L (136-145) Potassium Level 4.0mmol/L (3.5-5.1) Chloride Level 101mmol/L (98-107) Carbon Dioxide Level 30mmol/L (21-32) Anion Gap 10 (6-14) Blood Urea Nitrogen 44mg/dL (7-20) Creatinine 2.9mg/dL (0.6-1.0) Estimated GFR (Cockcroft-Gault) 17.9 Glucose Level 85mg/dL (70-99) Calcium Level 8.4mg/dL (8.5-10.1) Phosphorus Level 4.9mg/dL (2.6-4.7) Albumin 2.7g/dL (3.4-5.0) Laboratory Tests Test 12/04/16 11:00 12/04/16 16:00 12/04/16 16:45 12/04/16 22:45 White Blood Count 11.0x10^3/uL (4.0-11.0) 12.7x10^3/uL (4.0-11.0) 17.9x10^3/uL (4.0-11.0) Red Blood Count 1.82x10^6/uL (3.50-5.40) 1.62x10^6/uL (3.50-5.40) 3.59x10^6/uL (3.50-5.40) Hemoglobin 5.6g/dL (12.0-15.5) 4.9g/dL (12.0-15.5) 10.9g/dL (12.0-15.5) Hematocrit 17.0% (36.0-47.0) 15.2% (36.0-47.0) 32.5% (36.0-47.0) Mean Corpuscular Volume 93fL (79-100) 94fL (79-100) 91fL (79-100) Mean Corpuscular Hemoglobin 31pg (25-35) 30pg (25-35) 30pg (25-35) Mean Corpuscular Hemoglobin Concent 33g/dL (31-37) 32g/dL (31-37) 34g/dL (31-37) Red Cell Distribution Width 18.7% (11.5-14.5) 18.8% (11.5-14.5) 15.7% (11.5-14.5) Platelet Count 9x10^3/uL (140-400) 83x10^3/uL (140-400) 86x10^3/uL (140-400) Nasal Screen MRSA (PCR) Negative (Negative) Prothrombin Time 14.5SEC (11.7-14.0) Prothromb Time International Ratio 1.2 (0.8-1.1) Test 12/05/16 06:20 White Blood Count 17.2x10^3/uL (4.0-11.0) Red Blood Count 3.25x10^6/uL (3.50-5.40) Hemoglobin 10.0g/dL (12.0-15.5) Hematocrit 29.3% (36.0-47.0) Mean Corpuscular Volume 90fL (79-100) Mean Corpuscular Hemoglobin 31pg (25-35) Mean Corpuscular Hemoglobin Concent 34g/dL (31-37) Red Cell Distribution Width 15.7% (11.5-14.5) Platelet Count 69x10^3/uL (140-400) Neutrophils (%) (Auto) 90% (31-73) Lymphocytes (%) (Auto) 4% (24-48) Monocytes (%) (Auto) 6% (0-9) Eosinophils (%) (Auto) 0% (0-3) Basophils (%) (Auto) 0% (0-3) Neutrophils # (Auto) 15.5x10^3uL (1.8-7.7) Lymphocytes # (Auto) 0.7x10^3/uL (1.0-4.8) Monocytes # (Auto) 1.0x10^3/uL (0.0-1.1) Eosinophils # (Auto) 0.0x10^3/uL (0.0-0.7) Basophils # (Auto) 0.0x10^3/uL (0.0-0.2) Sodium Level 141mmol/L (136-145) Potassium Level 4.0mmol/L (3.5-5.1) Chloride Level 101mmol/L (98-107) Carbon Dioxide Level 30mmol/L (21-32) Anion Gap 10 (6-14) Blood Urea Nitrogen 44mg/dL (7-20) Creatinine 2.9mg/dL (0.6-1.0) Estimated GFR (Cockcroft-Gault) 17.9 Glucose Level 85mg/dL (70-99) Calcium Level 8.4mg/dL (8.5-10.1) Phosphorus Level 4.9mg/dL (2.6-4.7) Albumin 2.7g/dL (3.4-5.0) Microbiology 11/29/16 Gram Stain - Final, Complete Medications Current Medications Sodium Chloride (Iv Sodium Chloride 0.9% 1000ml Bag) 1,000 ml @ 100 mls/hr Q10H IV Last administered on 11/27/16 19:49; Start 11/27/16 at 19:01; Stop at 05:00; Status DC Albuterol/ Ipratropium (Duoneb) 6 ml 1X ONCE NEB Last administered on 19:10; Start 11/27/16 at 19:30; Stop 11/27/16 at 19:31; Status DC Methylprednisolone Sodium Succinate (Solu-Medrol 125mg Vial) 125 mg 1X ONCE IV Last administered on 11/27/16 19:49; Start 11/27/16 at 19:30; Stop 11/27/16 at 19:31; Status DC Acetaminophen/ Hydrocodone Bitart (Lortab 7.5/325) 1 tab 1X ONCE PO Last administered on 11/27/16 20:29; Start 11/27/16 at 20:15; Stop 11/27/16 at 20:17; Status DC Lisinopril (Prinivil) 10 mg 1X ONCE PO Last administered on 11/27/16 21:09; Start 11/27/16 at 21:15; Stop 11/27/16 at 21:16; Status DC Amlodipine Besylate (Norvasc) 10 mg 1X ONCE PO Last administered on 11/27/16 21:08; Start 11/27/16 at 21:15; Stop 11/27/16 at 21:16; Status DC Clonidine HCl (Catapres) 0.3 mg 1X ONCE PO Last administered on 11/27/16 21:09 ; Start 11/27/16 at 21:15; Stop 11/27/16 at 21:16; Status DC Ondansetron HCl (Zofran) 4 mg PRN Q8HRS PRN IV NAUSEA/VOMITING Last administered on 11/28/16 18:24; Start 11/27/16 at 22:30; Stop 11/28/16 at 22:29; Status DC Fentanyl Citrate (Fentanyl 2ml Vial) 50 mcg PRN Q2HR PRN IV SEVERE PAIN Last administered on 11/28/16 21:31; Start 11/27/16 at 22:30; Stop 11/28/16 at 22:29; Status DC Acetaminophen (Tylenol) 650 mg PRN Q4HRS PRN PO FEVER; Start 11/27/16 at 22:30; Stop 11/28/16 at 22:29; Status DC Albuterol/ Ipratropium (Duoneb) 3 ml RTQID NEB Last administered on 11/29/16 06 :06; Start 11/28/16 at 08:00; Stop 11/29/16 at 07:59; Status DC Methylprednisolone Sodium Succinate (Solu-Medrol 40mg Vial) 60 mg Q6HRS IV Last administered on 12/03/16 00:24; Start 11/28/16 at 00:00; Stop 12/03/16 at 13:20; Status DC Diphenhydramine HCl (Benadryl) 25 mg 1X ONCE IVP Last administered on 23:30; Start 11/27/16 at 23:00; Stop 11/27/16 at 23:01; Status DC Diphenhydramine HCl (Benadryl) 25 mg PRN Q6HRS PRN IVP ITCHING Last administered on 12/02/16 02:37; Start 11/28/16 at 02:00 Albuterol Sulfate (Ventolin Neb Soln) 2.5 mg PRN Q4HRS PRN NEB SHORTNESS OF BREATH Last administered on 12/02/16 12:23; Start 11/28/16 at 05:15 Acetaminophen (Tylenol) 500 mg PRN Q6HRS PRN PO PAIN Last administered on 06:13; Start 11/28/16 at 07:15 Lactobacillus Acidophilus (Bacid, Maren-Bid) 1 tab TIDWMEALS PO Last administered on 12/04/16 12:28; Start 11/28/16 at 08:00 Acyclovir (Zovirax) 200 mg BID PO Last administered on 12/05/16 08:56; Start 11/28/16 at 09:00 Amlodipine Besylate (Norvasc) 10 mg HS PO Last administered on 12/05/16 00:47 ; Start 11/28/16 at 21:00 Clonidine HCl (Catapres) 0.3 mg TID PO Last administered on 11/28/16 20:54; Start 11/28/16 at 09:00; Stop 11/29/16 at 14:02; Status DC Darbepoetin Apolinar (Aranesp) 60 mcg Tu SQ Last administered on 11/28/16 20:53; Start 11/28/16 at 21:00 Diclofenac Epolamine (Flector) 1 patch BID TD ; Start 11/28/16 at 09:00; Stop 11/28/16 at 14:38; Status DC Furosemide (Lasix) 80 mg TID@ PO Last administered on 12/05/16 08:56; Start 11/28/16 at 09:00 Acetaminophen/ Hydrocodone Bitart (Lortab 7.5/325) 1 tab PRN Q4HRS PRN PO SEVERE PAIN Last administered on 12/02/16 21:37; Start 11/28/16 at 07:15 Isosorbide Mononitrate (Imdur) 30 mg DAILY PO Last administered on 12/05/16 08 :56; Start 11/28/16 at 09:00 Lidocaine/ Prilocaine (Emla) 1 oniel PRN QID PRN TP pain; Start 11/28/16 at 07:15 Lisinopril (Prinivil) 10 mg DAILY PO Last administered on 12/05/16 08:56; Start 11/28/16 at 09:00 Loperamide HCl (Imodium) 2 mg PRN Q15MIN PRN PO DIARRHEA; Start 11/28/16 at 07: 15 Lorazepam (Ativan) 1 mg PRN Q6HRS PRN PO VOMITING Last administered on 21:06; Start 11/28/16 at 07:15 Methocarbamol (Robaxin) 1,500 mg PRN QID PRN PO SEVERE PAIN Last administered on 11/30/16 23:37; Start 11/28/16 at 07:15 Paroxetine HCl (Paxil) 20 mg QHS PO Last administered on 12/05/16 00:47; Start 11/28/16 at 21:00 Sevelamer Carbonate (Renvela) 800 mg TIDWMEALS PO Last administered on 12:28; Start 11/28/16 at 08:00 Dicyclomine HCl (Bentyl) 20 mg PRN TID PRN PO Stomach pain Last administered on 11/28/16 09:02; Start 11/28/16 at 07:45 Diphenhydramine HCl (Benadryl) 50 mg QHS PO Last administered on 12/03/16 21: 04; Start 11/28/16 at 21:00 Non-Formulary Medication 2 puff DAILY IH ; Start 11/28/16 at 09:00; Stop 11/28/16 at 09:00; Status DC Folic Acid/ Multivitamins/Vit B12 (Nephro-Sheree) 1 tab DAILY PO Last administered on 12/02/16 10:36; Start 11/28/16 at 09:00 Cetirizine HCl (Zyrtec) 10 mg QHS PO Last administered on 12/03/16 21:04; Start 11/28/16 at 21:00 Non-Formulary Medication 8 mg PRN BID PRN PO NAUSEA/VOMITING; Start 11/28/16 at 07:15; Stop 11/30/16 at 10:18; Status DC Budesonide 0.5 mg 0.5 mg RTBID NEB Last administered on 12/04/16 20:31; Start 11/28/16 at 08:00 Magnesium Sulfate/ Dextrose (Magnesium Sulfate PREMIX 2GM) 50 ml @ 25 mls/hr PRN DAILY PRN IV for Mag < 1.7 on am labs; Start 11/28/16 at 10:45 Hydralazine HCl (Apresoline) 50 mg TID PO ; Start 11/28/16 at 14:00; Stop at 15:49; Status DC Hydralazine HCl (Apresoline) 10 mg PRN Q4HRS PRN IVP ELEVATED BP, SEE COMMENTS Last administered on 12/05/16 00:42; Start 11/28/16 at 12:00 Hydralazine HCl 25 mg 25 mg TID PO Last administered on 11/30/16 14:14; Start 11/28/16 at 21:00; Stop 11/30/16 at 15:13; Status DC Sodium Chloride (Iv Sodium Chloride 0.9% 1000ml Bag) 1,000 ml @ 1,000 mls/hr Q1H PRN IV hypotension; Start 11/29/16 at 08:51; Stop 11/29/16 at 14:50; Status DC Diphenhydramine HCl (Benadryl) 25 mg 1X PRN PRN IV ITCHING; Start 11/29/16 at 09 :00; Stop 11/30/16 at 08:59; Status DC Diphenhydramine HCl (Benadryl) 25 mg 1X PRN PRN IV ITCHING; Start 11/29/16 at 09 :00; Stop 11/30/16 at 08:59; Status DC Info (PHARMACY MONITORING -- do not chart) 1 each PRN DAILY PRN MC SEE COMMENTS ; Start 11/29/16 at 09:00; Stop 12/05/16 at 08:43; Status DC Info (PHARMACY MONITORING -- do not chart) 1 each PRN DAILY PRN MC SEE COMMENTS ; Start 11/29/16 at 09:00; Status UNV Fentanyl Citrate (Fentanyl 2ml Vial) 25 mcg PRN Q5MIN PRN IV MILD PAIN; Start 11/29/16 at 09:30; Stop 11/30/16 at 03:58; Status DC Fentanyl Citrate 50 mcg 50 mcg PRN Q5MIN PRN IV MODERATE PAIN Last administered on 11/29/16 17:38; Start 11/29/16 at 09:30; Stop 11/30/16 at 03:58; Status DC Lactated Ringer's (Iv Lactated Ringers) 1,000 ml @ 0 mls/hr Q0M IV ; Start 11/29 at 09:16; Stop 11/29/16 at 21:15; Status DC Lidocaine HCl 2 ml 1X PRN PRN ID IV START; Start 11/29/16 at 09:30; Stop at 03:58; Status DC Prochlorperazine Edisylate (Compazine) 5 mg PACU PRN PRN IV NAUSEA; Start at 09:30; Stop 11/30/16 at 03:58; Status DC Fentanyl Citrate (Fentanyl 2ml Vial) 50 mcg PRN Q2HR PRN IV PAIN Last administered on 12/01/16 13:31; Start 11/29/16 at 10:30; Stop 12/01/16 at 17:25 ; Status DC Ondansetron HCl (Zofran) 4 mg PRN Q6HRS PRN IV NAUSEA/VOMITING Last administered on 11/29/16 10:59; Start 11/29/16 at 10:30; Stop 11/29/16 at 14:41; Status DC Lidocaine/Sodium Bicarbonate (Buffered Lidocaine 1%) 3 ml 1X ONCE IJ Last administered on 11/29/16 14:32; Start 11/29/16 at 12:45; Stop 11/29/16 at 12:46; Status DC Bupivacaine HCl/ Epinephrine Bitart (Sensorcain-Mpf Epi 0.5%-[id number]) 30 ml STK -MED ONCE .ROUTE Last administered on 11/29/16 16:47; Start 11/29/16 at 13:57; Stop 11/29/16 at 13:58; Status DC Carvedilol (Coreg) 12.5 mg BIDWMEALS PO Last administered on 11/30/16 09:29; Start 11/29/16 at 17:00; Stop 11/30/16 at 15:13; Status DC Clonidine HCl 1 patch 1 patch WEEKLY TD Last administered on 11/29/16 18:05; Start 11/29/16 at 14:30 Propofol (Diprivan) 20 ml @ As Directed STK-MED ONCE IV ; Start 11/29/16 at 14:14 ; Stop 11/29/16 at 14:15; Status DC Fentanyl Citrate (Fentanyl 2ml Vial) 100 mcg STK-MED ONCE .ROUTE ; Start at 14:14; Stop 11/29/16 at 14:15; Status DC Ondansetron HCl (Zofran) 4 mg STK-MED ONCE .ROUTE ; Start 11/29/16 at 14:14; Stop 11/29/16 at 14:15; Status DC Ondansetron HCl (Zofran) 8 mg PRN Q6HRS PRN IV NAUSEA/VOMITING Last administered on 12/05/16 03:28; Start 11/29/16 at 14:45; Stop 12/05/16 at 08:51 ; Status DC Midazolam HCl (Versed) 2 mg STK-MED ONCE .ROUTE ; Start 11/29/16 at 16:44; Stop 11/29/16 at 16:45; Status DC Pantoprazole Sodium (Protonix) 40 mg DAILYAC PO Last administered on 12/02/16 10:37; Start 11/30/16 at 09:30; Stop 12/03/16 at 07:43; Status DC Ondansetron HCl (Zofran Odt) 8 mg PRN BID PRN PO NAUSEA/VOMITING Last administered on 12/05/16 08:56; Start 11/30/16 at 10:30 Carvedilol (Coreg) 25 mg BIDWMEALS PO Last administered on 12/05/16 08:56; Start 11/30/16 at 17:00 Hydralazine HCl (Apresoline) 50 mg TID PO Last administered on 12/05/16 08:56 ; Start 11/30/16 at 15:30 Aspirin (Ecotrin) 81 mg [id number] PO Last administered on 12/02/16 10:37; Start 11/30/16 at 16:00 Regadenoson (Lexiscan) 0.4 mg 1X ONCE IV Last administered on 12/01/16 09:28 ; Start 12/01/16 at 08:15; Stop 12/01/16 at 08:16; Status DC Levothyroxine Sodium 100 mcg 100 mcg [id number] PO Last administered on 12/05/16 08:56; Start 12/01/16 at 14:00 Sodium Chloride 1,000 ml @ 1,000 mls/hr Q1H PRN IV hypotension; Start 12/01/16 at 15:26; Stop 12/01/16 at 21:00; Status DC Sodium Chloride (Iv Sodium Chloride 0.9% 1000ml Bag) 1,000 ml @ 400 mls/hr Q2H30M PRN IV PATENCY; Start 12/01/16 at 15:26; Stop 12/01/16 at 21:00; Status DC Info (PHARMACY MONITORING -- do not chart) 1 each PRN DAILY PRN MC SEE COMMENTS ; Start 12/01/16 at 15:30; Status UNV Info (PHARMACY MONITORING -- do not chart) 1 each PRN DAILY PRN MC SEE COMMENTS ; Start 12/01/16 at 15:30; Status UNV Fentanyl Citrate (Fentanyl 2ml Vial) 50 mcg PRN Q4HRS PRN IV PAIN Last administered on 12/02/16 03:21; Start 12/01/16 at 17:30 Montelukast Sodium (Singulair) 10 mg QHS PO Last administered on 12/03/16 21: 04; Start 12/02/16 at 21:00 Pantoprazole Sodium 40 mg 40 mg DAILYAC IVP ; Start 12/03/16 at 08:00; Stop 10/07 at 08:00; Status DC Pantoprazole Sodium 80 mg/ Sodium Chloride 100 ml @ 10 mls/hr Q10H IV Last administered on 12/05/16 04:32; Start 12/03/16 at 08:00 Propofol (Diprivan) 20 ml @ As Directed STK-MED ONCE IV ; Start 12/03/16 at 09: 23; Stop 12/03/16 at 09:24; Status DC Lidocaine HCl (Lidocaine Pf 2% Vial) 5 ml STK-MED ONCE .ROUTE ; Start 12/03/16 at 09:24; Stop 12/03/16 at 09:25; Status DC Ephedrine Sulfate 50 mg STK-MED ONCE IV ; Start 12/03/16 at 09:24; Stop at 09:25; Status DC Morphine Sulfate 2 mg 2 mg PRN Q2HR PRN IV PAIN Last administered on 12/05/16 08:57; Start 12/03/16 at 10:30 Sodium Chloride 1,000 ml @ 1,000 mls/hr Q1H PRN IV hypotension; Start 12/03/16 at 17:19; Stop 12/03/16 at 23:18; Status DC Sodium Chloride (Iv Sodium Chloride 0.9% 1000ml Bag) 1,000 ml @ 400 mls/hr Q2H30M PRN IV PATENCY; Start 12/03/16 at 17:19; Stop 12/04/16 at 05:18; Status DC Info (PHARMACY MONITORING -- do not chart) 1 each PRN DAILY PRN MC SEE COMMENTS ; Start 12/03/16 at 17:30; Status UNV Info 1 each 1 each PRN DAILY PRN MC SEE COMMENTS; Start 12/03/16 at 17:30; Status UNV Amino Acids/ Glycerin/ Electrolytes (Procalamine) 1,000 ml @ 80 mls/hr [id number] IV Last administered on 12/03/16 21:05; Start 12/03/16 at 19:45 Prochlorperazine (Compazine) 25 mg PRN Q12HR PRN SD NAUSEA/VOMITING; Start 10/07 at 22:00 Lidocaine HCl (Xylocaine-Mpf 1% Vial) 2 ml STK-MED ONCE .ROUTE ; Start 12/04/16 at 14:48; Stop 12/04/16 at 14:49; Status DC Iohexol (Omnipaque 350 Mg/ml) 90 ml 1X ONCE IV Last administered on 12/04/16 16:17; Start 12/04/16 at 16:00; Stop 12/04/16 at 16:01; Status DC Info (Do NOT chart on this entry -- for MONITORING) 1 each PRN DAILY PRN MC SEE COMMENTS; Start 12/04/16 at 16:00; Stop 12/06/16 at 15:59 Gelatin (Gelfoam Size 12-7mm) 1 each STK-MED ONCE .ROUTE ; Start 12/04/16 at 17 :09; Stop 12/04/16 at 17:10; Status DC Midazolam HCl (Versed) 2 mg STK-MED ONCE .ROUTE ; Start 12/04/16 at 17:10; Stop 12/04/16 at 17:11; Status DC Heparin Sodium/ Sodium Chloride 1,000 unit 1X ONCE IART Last administered on 20:00; Start 12/04/16 at 17:15; Stop 12/04/16 at 17:16; Status DC Lidocaine/Sodium Bicarbonate (Buffered Lidocaine 1%) 20 ml 1X ONCE IJ Last administered on 12/04/16 20:00; Start 12/04/16 at 17:15; Stop 12/04/16 at 17:16 ; Status DC Midazolam HCl (Versed) 2 mg 1X ONCE IV Last administered on 12/04/16 20:02; Start 12/04/16 at 17:15; Stop 12/04/16 at 17:16; Status DC Fentanyl Citrate (Fentanyl 2ml Vial) 100 mcg 1X ONCE IV Last administered on 20:02; Start 12/04/16 at 17:15; Stop 12/04/16 at 17:16; Status DC Iohexol (Omnipaque 300 Mg/ml) 100 ml 1X ONCE IART Last administered on 20:03; Start 12/04/16 at 17:15; Stop 12/04/16 at 17:16; Status DC Info 1 each 1 each PRN DAILY PRN MC SEE COMMENTS; Start 12/04/16 at 17:15; Stop 12/06/16 at 17:14 Heparin Sodium/ Sodium Chloride 1,500 ml @ As Directed STK-MED ONCE .ROUTE ; Start 12/04/16 at 17:13; Stop 12/04/16 at 17:14; Status DC Diphenhydramine HCl (Benadryl) 25 mg 1X ONCE IVP Last administered on 20:01; Start 12/04/16 at 18:15; Stop 12/04/16 at 18:16; Status DC Info (PHARMACY MONITORING -- do not chart) 1 each PRN DAILY PRN MC SEE COMMENTS ; Start 12/04/16 at 21:45 Ondansetron HCl (Zofran) 8 mg PRN Q4HRS PRN IV NAUSEA/VOMITING; Start 12/05/16 at 09:00 Active Scripts Active Levaquin (Levofloxacin) 500 Mg Tablet 500 Mg PO Q48H Lisinopril 10 Mg Tablet 10 Mg PO DAILY 30 Days Hydrocodone-Apap 7.5-325 (Hydrocodone Bit/Acetaminophen) 1 Each Tablet 1 Tab PO PRN Q4HRS PRN 14 Days Flector (Diclofenac Epolamine) 1 Each Patch.td12 1 Patch TD BID 30 Days Aranesp Syringe (Darbepoetin Apolinar In Polysorbat) 60 Mcg/0.3 Ml Disp.syrin 60 Mcg SQ WEEKLYHS 30 Days Furosemide 80 Mg Tablet 80 Mg PO TID 30 Days Loperamide (Loperamide Hcl) 2 Mg Capsule 2 Mg PO PRN Q15MIN PRN 30 Days Isosorbide Mononitrate Er (Isosorbide Mononitrate) 30 Mg Tab.er.24h 30 Mg PO DAILY 30 Days Maren-Bid Caplet (Acidoph/L.bulg/Bif.b/S.thermop) 1 Each Tablet 1 Tab PO TIDWMEALS 30 Days Reported Lorazepam 1 Mg Tablet 1 Mg PO PRN Q6HRS PRN Renvela (Sevelamer Carbonate) 800 Mg Tablet 2 Tab PO TID Lidocaine-Prilocaine Cream (Lidocaine/Prilocaine) 30 Gm Cream..g. 1 Oniel TP UD Dicyclomine Hcl 20 Mg Tablet 1 Tab PO TID PRN Clonidine Hcl 0.3 Mg Tablet 0.3 Mg PO TID Amlodipine Besylate 10 Mg Tablet 10 Mg PO HS Renal Caps Softgel (Folic Acid/Vitamin B Comp W-C) 1 Mg Capsule 1 Cap PO DAILY Advair 250-50 Diskus (Fluticasone/Salmeterol) 1 Each Disk.w.dev 2 Puff IH DAILY Proair Hfa Inhaler (Albuterol Sulfate) 8.5 Gm Hfa.aer.ad 2 Puff INH PRN Q6HRS PRN Acyclovir 200 Mg Capsule 200 Mg PO BID Paroxetine Hcl 20 Mg Tablet 20 Mg PO QHS Nighttime Sleep Aid (Diphenhydramine Hcl) 50 Mg Capsule 50 Mg PO QHS Ondansetron Hcl 8 Mg Tablet 8 Mg PO BID PRN Methocarbamol 750 Mg Tablet 1,500 Mg PO QID PRN Tylenol Extra Strength (Acetaminophen) 500 Mg Tablet 500 Mg PO Q6HRS PRN Claritin (Loratadine) 10 Mg Capsule 10 Mg PO HS Vitals/I & O Vital Sign - Last 24 Hours 12/04/16 12/04/16 12/04/16 12/04/16 09:23 12:00 12:28 12:30 Temp 97.6 97.6 Pulse 84 Resp 18 18 B/P 108/75 Pulse Ox 95 100 97 O2 Delivery Nasal Cannula Nasal Cannula Nasal Cannula Nasal Cannula O2 Flow Rate 2.0 2.0 3.0 2.0 12/04/16 12/04/16 12/04/16 12/04/16 14:41 16:00 17:16 17:43 Temp 98.4 98.2 98.4 98.2 Pulse 87 88 Resp 16 16 18 B/P 180/73 158/63 O2 Delivery Nasal Cannula Nasal Cannula O2 Flow Rate 3.0 3.0 12/04/16 12/04/16 12/04/16 12/04/16 18:47 20:00 20:02 20:04 Temp 98.0 98.0 Pulse 81 87 Resp 16 B/P 162/65 Pulse Ox 100 100 O2 Delivery Nasal Cannula Nasal Cannula Nasal Cannula O2 Flow Rate 4.0 4.0 4.0 12/04/16 12/04/16 12/04/16 12/04/16 20:30 20:33 20:45 20:53 Temp 97.6 97.6 97.6 97.6 Pulse 90 94 89 Resp 18 18 20 B/P 228/76 254/99 243/88 Pulse Ox 97 100 97 O2 Delivery Nasal Cannula Nasal Cannula Nasal Cannula O2 Flow Rate 4.0 5.0 4.0 12/04/16 12/04/16 12/04/16 12/04/16 21:00 21:01 21:02 21:08 Temp 97.6 97.9 97.6 97.9 Pulse 84 89 91 Resp 18 24 B/P 243/88 243/88 247/93 Pulse Ox 97 100 O2 Delivery Nasal Cannula Nasal Cannula O2 Flow Rate 4.0 5.0 12/04/16 12/04/16 12/04/16 12/04/16 21:15 21:23 21:30 21:38 Temp 97.8 97.9 97.8 97.8 97.9 97.8 Pulse 94 90 91 90 Resp 18 22 18 20 B/P 194/85 218/85 203/83 203/86 Pulse Ox 98 99 O2 Delivery Nasal Cannula Nasal Cannula O2 Flow Rate 4.0 4.0 12/04/16 12/04/16 12/04/16 12/05/16 22:00 23:00 23:59 00:01 Temp 97.1 97.1 Pulse 90 97 97 Resp 20 20 20 B/P 218/85 225/94 220/96 Pulse Ox 99 98 98 O2 Delivery Nasal Cannula Nasal Cannula Nasal Cannula Nasal Cannula O2 Flow Rate 4.0 4.0 4.0 4.0 12/05/16 12/05/16 12/05/16 12/05/16 00:42 00:45 00:46 00:47 Pulse 97 99 97 97 B/P 225/94 225/94 225/94 225/94 12/05/16 12/05/16 12/05/16 12/05/16 00:49 01:00 02:00 03:00 Pulse 98 97 87 Resp 20 20 18 B/P 213/78 205/85 178/80 Pulse Ox 98 98 98 98 O2 Delivery Nasal Cannula Nasal Cannula Nasal Cannula Nasal Cannula O2 Flow Rate 4.0 4.0 4.0 3.0 12/05/16 12/05/16 12/05/16 12/05/16 03:26 03:56 04:00 04:00 Temp 98.1 98.1 Pulse 92 Resp 20 24 18 B/P 171/74 Pulse Ox 98 98 97 O2 Delivery Nasal Cannula Nasal Cannula Nasal Cannula Nasal Cannula O2 Flow Rate 4.0 2.0 2.0 3.0 12/05/16 12/05/16 12/05/16 12/05/16 05:00 06:00 06:24 08:56 Pulse 92 87 87 Resp 18 18 18 B/P 175/75 180/72 180/72 Pulse Ox 97 98 97 O2 Delivery Nasal Cannula Nasal Cannula Nasal Cannula O2 Flow Rate 2.0 2.0 3.0 12/05/16 12/05/16 12/05/16 12/05/16 08:56 08:56 08:56 08:57 Pulse 87 97 87 Resp 23 B/P 180/72 188/71 180/72 O2 Delivery Nasal Cannula O2 Flow Rate 2.0 Intake and Output 2/13/17 2/13/17 2/14/17 15:00 23:00 07:00 Intake Total 100 ml Output Total 500 ml 450 ml Balance -400 ml -450 ml JONATHAN KIRK MD Dec 05, 2016 09:19
--- NOTE | 2016-12-05 09:59 | PDOC ---
SUBJECTIVE ROS ESRD Doign and feeling same ovrall; but very tired ROS: CVS: no Orthopnea no CP RESP: no SOB no [place] GI: no Nausea no Vomiting : no Dysuria no Urgency OBJECTIVE Vital Signs Vital Signs Date Time Temp Pulse Resp B/P Pulse Ox O2 Delivery O2 Flow Rate FiO2 12/05/16 09:28 29 94 Nasal Cannula 2.0 12/05/16 08:56 87 180/72 12/05/16 04:00 98.1 98.1 I & 0 Intake and Output 12/05/16 07:00 Intake Total 100 ml Output Total 950 ml Balance -850 ml Intake Oral 0 ml Blood Product IV Normal Saline Flush 80 ml Other 20 ml Output Urine Total 450 ml Urine/Stool Mix 500 ml PHYSICAL EXAM Physical Exam General Appearance: Awake Alert Oriented x 3 In no resp Distress Eyes: VIsion Unchanged Conjunctiva Normal EN: No EN Drainage Mucous Memb. moist Neck: no JVD min JVP Supple no Thyromegaly CVS: S1 S2 soft Murmur No Gallop No Rub + Edema Resp: Gigi basla Rales no Rhonchi no Acc. Muscle use GI: BAS +ve NO Bruit Non Tender Non Distended : no CVA tenderness; no Suprapubic Tenderness DIAGNOSIS/ASSESSMENT Assessment & Plan ESRD: Current fluid and E-lyte status does not necessitate emergent need for dialysis. Will re-evaluate for dialysis in the am and continue on MWF schedule. ^K - suspect due to GI Bleed; better after yesterdays HD gI BLeed - now s/p Gastric Artery embolization Anemia: Start Epogen; Transfuse with next HD as needed. (not active on txp list) HTN: reval after fluid status optimization. Current BP meds reviewed. See orders for changes. ABI: Bone & Mineral: Follow Phos and alter binder regimen - improving with current regiemn, OP Compliance with same is debateable Skin changes / Hardening - Skin Bx to r/o Calciphylaxis - pending path Previous Fluid overload - now better today clinically - challenge Dry wt as betzaida Discussed Plan of Care and prognosis etc. at length with pt at bedside DIAGNOSIS/ASSESSMENT Assessment & Plan Problems: COMMENT/RELEVANT DATA Meds Current Medications Medications (Trade) Dose Ordered Sig/Jamila Start Time Stop Time Status Last Admin Dose Admin Acetaminophen (Tylenol) 500 mg PRN Q6HRS PRN 11/28/16 07:15 11/30/16 06:13 500 MG Acetaminophen/ Hydrocodone Bitart (Lortab 7.5/325) 1 tab PRN Q4HRS PRN 11/28/16 07:15 12/02/16 21:37 1 TAB Acyclovir (Zovirax) 200 mg BID 11/28/16 09:00 12/05/16 08:56 200 MG Albuterol Sulfate (Ventolin Neb Soln) 2.5 mg PRN Q4HRS PRN 11/28/16 05:15 12/02/16 12:23 2.5 MG Albuterol/ Ipratropium (Duoneb) 3 ml RTQID 11/28/16 08:00 11/29/16 07:59 DC 11/29/16 06:06 3 ML Amino Acids/ Glycerin/ Electrolytes (Procalamine) 1,000 ml @ 80 mls/hr [id number] 12/03/16 19:45 12/03/16 21:05 80 MLS/HR Amlodipine Besylate (Norvasc) 10 mg HS 11/28/16 21:00 12/05/16 00:47 10 MG Aspirin (Ecotrin) 81 mg DAILYWBKFT 11/30/16 16:00 12/02/16 10:37 81 MG Budesonide 0.5 mg 0.5 mg RTBID 11/28/16 08:00 12/04/16 20:31 0.5 MG Bupivacaine HCl/ Epinephrine Bitart (Sensorcain-Mpf Epi 0.5%-1:[id number]) 30 ml STK-MED ONCE 11/29/16 13:57 11/29/16 13:58 DC 11/29/16 16:47 9 ML Carvedilol (Coreg) 25 mg BIDWMEALS 11/30/16 17:00 12/05/16 08:56 25 MG Cetirizine HCl (Zyrtec) 10 mg QHS 11/28/16 21:00 12/03/16 21:04 10 MG Clonidine HCl (Catapres Tts-2) 1 patch WEEKLY 11/29/16 14:30 11/29/16 18:05 1 PATCH Clonidine HCl (Catapres) 0.3 mg TID 11/28/16 09:00 11/29/16 14:02 DC 11/28/16 20:54 0.3 MG Darbepoetin Apolinar (Aranesp) 60 mcg Tu 11/28/16 21:00 11/28/16 20:53 60 MCG Diclofenac Epolamine (Flector) 1 patch BID 11/28/16 09:00 11/28/16 14:38 DC Dicyclomine HCl (Bentyl) 20 mg PRN TID PRN 11/28/16 07:45 11/28/16 09:02 20 MG Diphenhydramine HCl (Benadryl) 25 mg 1X ONCE 12/04/16 18:15 12/04/16 18:16 DC 12/04/16 20:01 25 MG Ephedrine Sulfate 50 mg STK-MED ONCE 12/03/16 09:24 12/03/16 09:25 DC Fentanyl Citrate (Fentanyl 2ml Vial) 100 mcg 1X ONCE 12/04/16 17:15 12/04/16 17:16 DC 12/04/16 20:02 100 MCG Fentanyl Citrate 50 mcg 50 mcg PRN Q5MIN PRN 11/29/16 09:30 11/30/16 03:58 DC 11/29/16 17:38 50 MCG Folic Acid/ Multivitamins/Vit B12 (Nephro-Sheree) 1 tab DAILY 11/28/16 09:00 12/02/16 10:36 1 TAB Furosemide (Lasix) 80 mg TID@,,11/28/16 09:00 12/05/16 08:56 80 MG Gelatin (Gelfoam Size 12-7mm) 1 each STK-MED ONCE 12/04/16 17:09 12/04/16 17:10 DC Heparin Sodium/ Sodium Chloride 1,500 ml @ As Directed STK-MED ONCE 12/04/16 17:13 12/04/16 17:14 DC Hydralazine HCl (Apresoline) 50 mg TID 11/30/16 15:30 12/05/16 08:56 50 MG Info (Do NOT chart on this entry -- for MONITORING) 1 each PRN DAILY PRN 12/04/16 16:00 12/06/16 15:59 Info (PHARMACY MONITORING -- do not chart) 1 each PRN DAILY PRN 12/04/16 21:45 Info 1 each 1 each PRN DAILY PRN 12/04/16 17:15 12/06/16 17:14 Iohexol (Omnipaque 300 Mg/ml) 100 ml 1X ONCE 12/04/16 17:15 12/04/16 17:16 DC 12/04/16 20:03 180 ML Iohexol (Omnipaque 350 Mg/ml) 90 ml 1X ONCE 12/04/16 16:00 12/04/16 16:01 DC 12/04/16 16:17 90 ML Isosorbide Mononitrate (Imdur) 30 mg DAILY 11/28/16 09:00 12/05/16 08:56 30 MG Lactated Ringer's (Iv Lactated Ringers) 1,000 ml @ 0 mls/hr Q0M 11/29/16 09:16 11/29/16 21:15 DC Lactobacillus Acidophilus (Bacid, Maren-Bid) 1 tab TIDWMEALS 11/28/16 08:00 12/04/16 12:28 1 TAB Levothyroxine Sodium 100 mcg 100 mcg DAILY07 12/01/16 14:00 12/05/16 08:56 100 MCG Lidocaine HCl (Lidocaine Pf 2% Vial) 5 ml STK-MED ONCE 12/03/16 09:24 12/03/16 09:25 DC Lidocaine HCl (Xylocaine-Mpf 1% Vial) 2 ml STK-MED ONCE 12/04/16 14:48 12/04/16 14:49 DC Lidocaine/ Prilocaine (Emla) 1 nirav PRN QID PRN 11/28/16 07:15 Lidocaine/Sodium Bicarbonate (Buffered Lidocaine 1%) 20 ml 1X ONCE 12/04/16 17:15 12/04/16 17:16 DC 12/04/16 20:00 8 ML Lisinopril (Prinivil) 10 mg DAILY 11/28/16 09:00 12/05/16 08:56 10 MG Loperamide HCl (Imodium) 2 mg PRN Q15MIN PRN 11/28/16 07:15 Lorazepam (Ativan) 1 mg PRN Q6HRS PRN 11/28/16 07:15 12/03/16 21:06 1 MG Magnesium Sulfate/ Dextrose (Magnesium Sulfate PREMIX 2GM) 50 ml @ 25 mls/hr PRN DAILY PRN 11/28/16 10:45 Methocarbamol (Robaxin) 1,500 mg PRN QID PRN 11/28/16 07:15 11/30/16 23:37 1,500 MG Methylprednisolone Sodium Succinate (Solu-Medrol 40mg Vial) 60 mg Q6HRS 11/28/16 00:00 12/03/16 13:20 DC 12/03/16 00:24 60 MG Methylprednisolone Sodium Succinate (Solu-Medrol 125mg Vial) 125 mg 1X ONCE 11/27/16 19:30 11/27/16 19:31 DC 11/27/16 19:49 125 MG Midazolam HCl (Versed) 2 mg 1X ONCE 12/04/16 17:15 12/04/16 17:16 DC 12/04/16 20:02 4 MG Montelukast Sodium (Singulair) 10 mg QHS 12/02/16 21:00 12/03/16 21:04 10 MG Morphine Sulfate 2 mg 2 mg PRN Q2HR PRN 12/03/16 10:30 12/05/16 08:57 2 MG Non-Formulary Medication 8 mg PRN BID PRN 11/28/16 07:15 11/30/16 10:18 DC Ondansetron HCl (Zofran Odt) 8 mg PRN BID PRN 11/30/16 10:30 12/05/16 08:56 8 MG Ondansetron HCl (Zofran) 8 mg PRN Q4HRS PRN 12/05/16 09:00 Pantoprazole Sodium (Protonix) 40 mg DAILYAC 11/30/16 09:30 12/03/16 07:43 DC 12/02/16 10:37 40 MG Pantoprazole Sodium 40 mg 40 mg DAILYAC 12/03/16 08:00 12/03/16 08:00 DC Pantoprazole Sodium 80 mg/ Sodium Chloride 100 ml @ 10 mls/hr Q10H 12/03/16 08:00 12/05/16 04:32 10 MLS/HR Paroxetine HCl (Paxil) 20 mg QHS 11/28/16 21:00 12/05/16 00:47 20 MG Prochlorperazine (Compazine) 25 mg PRN Q12HR PRN 12/03/16 22:00 Prochlorperazine Edisylate (Compazine) 5 mg PACU PRN PRN 2/8/17 09:30 11/30/16 03:58 DC Propofol (Diprivan) 20 ml @ As Directed STK-MED ONCE 12/03/16 09:23 12/03/16 09:24 DC Regadenoson (Lexiscan) 0.4 mg 1X ONCE 12/01/16 08:15 12/01/16 08:16 DC 12/01/16 09:28 0.4 MG Sevelamer Carbonate (Renvela) 800 mg TIDWMEALS 11/28/16 08:00 12/04/16 12:28 800 MG Sodium Chloride 1,000 ml @ 400 mls/hr Q2H30M PRN 12/03/16 17:19 12/04/16 05:18 DC Sodium Chloride (Iv Sodium Chloride 0.9% 1000ml Bag) 1,000 ml @ 400 mls/hr Q2H30M PRN 12/01/16 15:26 12/01/16 21:00 DC Lab Laboratory Tests Test 12/04/16 11:00 12/04/16 16:00 12/04/16 16:45 12/04/16 22:45 White Blood Count 11.0x10^3/uL (4.0-11.0) 12.7x10^3/uL (4.0-11.0) 17.9x10^3/uL (4.0-11.0) Red Blood Count 1.82x10^6/uL (3.50-5.40) 1.62x10^6/uL (3.50-5.40) 3.59x10^6/uL (3.50-5.40) Hemoglobin 5.6g/dL (12.0-15.5) 4.9g/dL (12.0-15.5) 10.9g/dL (12.0-15.5) Hematocrit 17.0% (36.0-47.0) 15.2% (36.0-47.0) 32.5% (36.0-47.0) Mean Corpuscular Volume 93fL (79-100) 94fL (79-100) 91fL (79-100) Mean Corpuscular Hemoglobin 31pg (25-35) 30pg (25-35) 30pg (25-35) Mean Corpuscular Hemoglobin Concent 33g/dL (31-37) 32g/dL (31-37) 34g/dL (31-37) Red Cell Distribution Width 18.7% (11.5-14.5) 18.8% (11.5-14.5) 15.7% (11.5-14.5) Platelet Count 9x10^3/uL (140-400) 83x10^3/uL (140-400) 86x10^3/uL (140-400) Nasal Screen MRSA (PCR) Negative (Negative) Prothrombin Time 14.5SEC (11.7-14.0) Prothromb Time International Ratio 1.2 (0.8-1.1) Test 12/05/16 06:20 White Blood Count 17.2x10^3/uL (4.0-11.0) Red Blood Count 3.25x10^6/uL (3.50-5.40) Hemoglobin 10.0g/dL (12.0-15.5) Hematocrit 29.3% (36.0-47.0) Mean Corpuscular Volume 90fL (79-100) Mean Corpuscular Hemoglobin 31pg (25-35) Mean Corpuscular Hemoglobin Concent 34g/dL (31-37) Red Cell Distribution Width 15.7% (11.5-14.5) Platelet Count 69x10^3/uL (140-400) Neutrophils (%) (Auto) 90% (31-73) Lymphocytes (%) (Auto) 4% (24-48) Monocytes (%) (Auto) 6% (0-9) Eosinophils (%) (Auto) 0% (0-3) Basophils (%) (Auto) 0% (0-3) Neutrophils # (Auto) 15.5x10^3uL (1.8-7.7) Lymphocytes # (Auto) 0.7x10^3/uL (1.0-4.8) Monocytes # (Auto) 1.0x10^3/uL (0.0-1.1) Eosinophils # (Auto) 0.0x10^3/uL (0.0-0.7) Basophils # (Auto) 0.0x10^3/uL (0.0-0.2) Sodium Level 141mmol/L (136-145) Potassium Level 4.0mmol/L (3.5-5.1) Chloride Level 101mmol/L (98-107) Carbon Dioxide Level 30mmol/L (21-32) Anion Gap 10 (6-14) Blood Urea Nitrogen 44mg/dL (7-20) Creatinine 2.9mg/dL (0.6-1.0) Estimated GFR (Cockcroft-Gault) 17.9 Glucose Level 85mg/dL (70-99) Calcium Level 8.4mg/dL (8.5-10.1) Phosphorus Level 4.9mg/dL (2.6-4.7) Albumin 2.7g/dL (3.4-5.0) MITRA TAVAREZ MD Dec 05, 2016 09:59
--- NOTE | 2016-12-05 11:25 | PDOC ---
PULMONARY PROGRESS NOTES Subjective PT TRANSFERRED TO ICU FOR ACUTE GI BLEED Vitals Vital Signs Date Time Temp Pulse Resp B/P Pulse Ox O2 Delivery O2 Flow Rate FiO2 12/05/16 11:02 22 88 Nasal Cannula 2.0 12/05/16 09:00 87 196/87 12/05/16 08:00 97.4 97.4 ROS: No Nausea, No Chest Pain, No Abdominal Pain, No Increase Cough General: Alert, No acute distress Lungs: Crackles Cardiovascular: S1, S2 Abdomen: Soft Neuro Exam: Alert Extremities: No Edema Skin: Warm Labs Laboratory Tests Test 12/03/16 12:25 12/03/16 19:20 12/04/16 08:40 12/04/16 11:00 White Blood Count 10.2x10^3/uL (4.0-11.0) 12.3x10^3/uL (4.0-11.0) 15.5x10^3/uL (4.0-11.0) 11.0x10^3/uL (4.0-11.0) Red Blood Count 1.27x10^6/uL (3.50-5.40) 3.60x10^6/uL (3.50-5.40) 2.12x10^6/uL (3.50-5.40) 1.82x10^6/uL (3.50-5.40) Hemoglobin 4.1g/dL (12.0-15.5) 10.7g/dL (12.0-15.5) 6.3g/dL (12.0-15.5) 5.6g/dL (12.0-15.5) Hematocrit 13.1% (36.0-47.0) 32.6% (36.0-47.0) 19.4% (36.0-47.0) 17.0% (36.0-47.0) Mean Corpuscular Volume 103fL (79-100) 91fL (79-100) 91fL (79-100) 93fL (79- 100) Mean Corpuscular Hemoglobin 32pg (25-35) 30pg (25-35) 30pg (25-35) 31pg (25- 35) Mean Corpuscular Hemoglobin Concent 31g/dL (31-37) 33g/dL (31-37) 33g/dL (31-37) 33g/dL (31-37) Red Cell Distribution Width 20.5% (11.5-14.5) 18.6% (11.5-14.5) 18.9% (11.5-14.5) 18.7% (11.5-14.5) Platelet Count 152x10^3/uL (140-400) 103x10^3/uL (140-400) 110x10^3/uL (140-400) 9x10^3/uL (140-400) Neutrophils (%) (Auto) 87% (31-73) 80% (31-73) 81% (31-73) Lymphocytes (%) (Auto) 8% (24-48) 10% (24-48) 12% (24-48) Monocytes (%) (Auto) 5% (0-9) 10% (0-9) 7% (0-9) Eosinophils (%) (Auto) 0% (0-3) 0% (0-3) 0% (0-3) Basophils (%) (Auto) 0% (0-3) 0% (0-3) 0% (0-3) Neutrophils # (Auto) 8.9x10^3uL (1.8-7.7) 9.9x10^3uL (1.8-7.7) 12.6x10^3uL (1.8-7.7) Lymphocytes # (Auto) 0.8x10^3/uL (1.0-4.8) 1.2x10^3/uL (1.0-4.8) 1.8x10^3/uL (1.0-4.8) Monocytes # (Auto) 0.5x10^3/uL (0.0-1.1) 1.2x10^3/uL (0.0-1.1) 1.0x10^3/uL (0.0-1.1) Eosinophils # (Auto) 0.0x10^3/uL (0.0-0.7) 0.0x10^3/uL (0.0-0.7) 0.0x10^3/uL (0.0-0.7) Basophils # (Auto) 0.0x10^3/uL (0.0-0.2) 0.0x10^3/uL (0.0-0.2) 0.0x10^3/uL (0.0-0.2) Prothrombin Time 18.8SEC (11.7-14.0) Prothromb Time International Ratio 1.7 (0.8-1.1) Segmented Neutrophils % 88% (35-66) Lymphocytes % 3% (24-48) Monocytes % 8% (0-10) Myelocytes % 1% (0-0) Nucleated Red Blood Cells 2 Toxic Granulation Mod Platelet Estimate Decreased (ADEQUATE) Polychromasia Slight Anisocytosis Mod Sodium Level 139mmol/L (136-145) Potassium Level 5.5mmol/L (3.5-5.1) Chloride Level 101mmol/L (98-107) Carbon Dioxide Level 26mmol/L (21-32) Anion Gap 12 (6-14) Blood Urea Nitrogen 88mg/dL (7-20) Creatinine 4.8mg/dL (0.6-1.0) Estimated GFR (Cockcroft-Gault) 10.0 Glucose Level 87mg/dL (70-99) Calcium Level 8.2mg/dL (8.5-10.1) Phosphorus Level 6.6mg/dL (2.6-4.7) Albumin 2.2g/dL (3.4-5.0) Test 12/04/16 16:00 12/04/16 16:45 12/04/16 22:45 12/05/16 06:20 Nasal Screen MRSA (PCR) Negative (Negative) White Blood Count 12.7x10^3/uL (4.0-11.0) 17.9x10^3/uL (4.0-11.0) 17.2x10^3/uL (4.0-11.0) Red Blood Count 1.62x10^6/uL (3.50-5.40) 3.59x10^6/uL (3.50-5.40) 3.25x10^6/uL (3.50-5.40) Hemoglobin 4.9g/dL (12.0-15.5) 10.9g/dL (12.0-15.5) 10.0g/dL (12.0-15.5) Hematocrit 15.2% (36.0-47.0) 32.5% (36.0-47.0) 29.3% (36.0-47.0) Mean Corpuscular Volume 94fL (79-100) 91fL (79-100) 90fL (79-100) Mean Corpuscular Hemoglobin 30pg (25-35) 30pg (25-35) 31pg (25-35) Mean Corpuscular Hemoglobin Concent 32g/dL (31-37) 34g/dL (31-37) 34g/dL (31-37) Red Cell Distribution Width 18.8% (11.5-14.5) 15.7% (11.5-14.5) 15.7% (11.5-14.5) Platelet Count 83x10^3/uL (140-400) 86x10^3/uL (140-400) 69x10^3/uL (140-400) Prothrombin Time 14.5SEC (11.7-14.0) Prothromb Time International Ratio 1.2 (0.8-1.1) Neutrophils (%) (Auto) 90% (31-73) Lymphocytes (%) (Auto) 4% (24-48) Monocytes (%) (Auto) 6% (0-9) Eosinophils (%) (Auto) 0% (0-3) Basophils (%) (Auto) 0% (0-3) Neutrophils # (Auto) 15.5x10^3uL (1.8-7.7) Lymphocytes # (Auto) 0.7x10^3/uL (1.0-4.8) Monocytes # (Auto) 1.0x10^3/uL (0.0-1.1) Eosinophils # (Auto) 0.0x10^3/uL (0.0-0.7) Basophils # (Auto) 0.0x10^3/uL (0.0-0.2) Sodium Level 141mmol/L (136-145) Potassium Level 4.0mmol/L (3.5-5.1) Chloride Level 101mmol/L (98-107) Carbon Dioxide Level 30mmol/L (21-32) Anion Gap 10 (6-14) Blood Urea Nitrogen 44mg/dL (7-20) Creatinine 2.9mg/dL (0.6-1.0) Estimated GFR (Cockcroft-Gault) 17.9 Glucose Level 85mg/dL (70-99) Calcium Level 8.4mg/dL (8.5-10.1) Phosphorus Level 4.9mg/dL (2.6-4.7) Albumin 2.7g/dL (3.4-5.0) Laboratory Tests Test 12/04/16 16:00 12/04/16 16:45 12/04/16 22:45 12/05/16 06:20 Nasal Screen MRSA (PCR) Negative (Negative) White Blood Count 12.7x10^3/uL (4.0-11.0) 17.9x10^3/uL (4.0-11.0) 17.2x10^3/uL (4.0-11.0) Red Blood Count 1.62x10^6/uL (3.50-5.40) 3.59x10^6/uL (3.50-5.40) 3.25x10^6/uL (3.50-5.40) Hemoglobin 4.9g/dL (12.0-15.5) 10.9g/dL (12.0-15.5) 10.0g/dL (12.0-15.5) Hematocrit 15.2% (36.0-47.0) 32.5% (36.0-47.0) 29.3% (36.0-47.0) Mean Corpuscular Volume 94fL (79-100) 91fL (79-100) 90fL (79-100) Mean Corpuscular Hemoglobin 30pg (25-35) 30pg (25-35) 31pg (25-35) Mean Corpuscular Hemoglobin Concent 32g/dL (31-37) 34g/dL (31-37) 34g/dL (31-37) Red Cell Distribution Width 18.8% (11.5-14.5) 15.7% (11.5-14.5) 15.7% (11.5-14.5) Platelet Count 83x10^3/uL (140-400) 86x10^3/uL (140-400) 69x10^3/uL (140-400) Prothrombin Time 14.5SEC (11.7-14.0) Prothromb Time International Ratio 1.2 (0.8-1.1) Neutrophils (%) (Auto) 90% (31-73) Lymphocytes (%) (Auto) 4% (24-48) Monocytes (%) (Auto) 6% (0-9) Eosinophils (%) (Auto) 0% (0-3) Basophils (%) (Auto) 0% (0-3) Neutrophils # (Auto) 15.5x10^3uL (1.8-7.7) Lymphocytes # (Auto) 0.7x10^3/uL (1.0-4.8) Monocytes # (Auto) 1.0x10^3/uL (0.0-1.1) Eosinophils # (Auto) 0.0x10^3/uL (0.0-0.7) Basophils # (Auto) 0.0x10^3/uL (0.0-0.2) Sodium Level 141mmol/L (136-145) Potassium Level 4.0mmol/L (3.5-5.1) Chloride Level 101mmol/L (98-107) Carbon Dioxide Level 30mmol/L (21-32) Anion Gap 10 (6-14) Blood Urea Nitrogen 44mg/dL (7-20) Creatinine 2.9mg/dL (0.6-1.0) Estimated GFR (Cockcroft-Gault) 17.9 Glucose Level 85mg/dL (70-99) Calcium Level 8.4mg/dL (8.5-10.1) Phosphorus Level 4.9mg/dL (2.6-4.7) Albumin 2.7g/dL (3.4-5.0) Medications Active Scripts Medications Dose Route/Sig Days Date Category Levaquin (Levofloxacin) 500 Mg Tablet 500 Mg PO Q48H 09/30/16 Rx Lisinopril 10 Mg Tablet 10 Mg PO DAILY 30 07/06/16 Rx Hydrocodone-Apap 7.5-325 (Hydrocodone Bit/Acetaminophen) 1 Each Tablet 1 Tab PO PRN Q4HRS PRN 14 07/06/16 Rx Flector (Diclofenac Epolamine) 1 Each Patch.td12 1 Patch TD BID 30 07/06/16 Rx Aranesp Syringe (Darbepoetin Apolinar In Polysorbat) 60 Mcg/0.3 Ml Disp.syrin 60 Mcg SQ WEEKLYHS 30 07/06/16 Rx Furosemide 80 Mg Tablet 80 Mg PO TID 30 07/06/16 Rx Lorazepam 1 Mg Tablet 1 Mg PO PRN Q6HRS PRN 07/02/16 Reported Renvela (Sevelamer Carbonate) 800 Mg Tablet 2 Tab PO TID 07/02/16 Reported Loperamide (Loperamide Hcl) 2 Mg Capsule 2 Mg PO PRN Q15MIN PRN 30 06/09/16 Rx Isosorbide Mononitrate Er (Isosorbide Mononitrate) 30 Mg Tab.er.24h 30 Mg PO DAILY 30 06/09/16 Rx Maren-Bid Caplet (Acidoph/L.bulg/Bif.b/S.thermop) 1 Each Tablet 1 Tab PO TIDWMEALS 30 06/09/16 Rx Lidocaine-Prilocaine Cream (Lidocaine/Prilocaine) 30 Gm Cream..g. 1 Oniel TP UD 06/04/16 Reported Dicyclomine Hcl 20 Mg Tablet 1 Tab PO TID PRN 06/04/16 Reported Clonidine Hcl 0.3 Mg Tablet 0.3 Mg PO TID 06/04/16 Reported Amlodipine Besylate 10 Mg Tablet 10 Mg PO HS 06/04/16 Reported Renal Caps Softgel (Folic Acid/Vitamin B Comp W-C) 1 Mg Capsule 1 Cap PO DAILY 01/16/16 Reported Advair 250-50 Diskus (Fluticasone/Salmeterol) 1 Each Disk.w.dev 2 Puff IH DAILY 01/16/16 Reported Proair Hfa Inhaler (Albuterol Sulfate) 8.5 Gm Hfa.aer.ad 2 Puff INH PRN Q6HRS PRN 01/16/16 Reported Acyclovir 200 Mg Capsule 200 Mg PO BID 01/16/16 Reported Paroxetine Hcl 20 Mg Tablet 20 Mg PO QHS 05/09/15 Reported Nighttime Sleep Aid (Diphenhydramine Hcl) 50 Mg Capsule 50 Mg PO QHS 05/09/15 Reported Ondansetron Hcl 8 Mg Tablet 8 Mg PO BID PRN 05/09/14 Reported Methocarbamol 750 Mg Tablet 1,500 Mg PO QID PRN 05/09/14 Reported Tylenol Extra Strength (Acetaminophen) 500 Mg Tablet 500 Mg PO Q6HRS PRN 05/09/14 Reported Claritin (Loratadine) 10 Mg Capsule 10 Mg PO HS 05/09/14 Reported Comments cxr reviewed. There is less left pleural fluid than previously consistent with the interval thoracentesis. Impression . 1. ACUTE/CHRONIC RESP FAILURE MULTIFACTORIAL 2. ACUTE GI BLEED S/P EMBOLIZATION 3. A/C DIASTOLIC/SYST HEART FAILURE 4. Chronic respiratory failure, on home oxygen. 5. History of multiple myeloma, currently on chemo. 6. End-stage renal disease, on hemodialysis. 7. PLEURAL EFFUSION S/P THORACENTESIS Plan . RESP STATUS IS COMPENSATED OK TO TRANSFER OUT OF ICU 1. Continue present oxygen. 2. Hemodialysis with increased ultrafiltration. 3. Continue with bronchodilators. 4. Wean oxygen, keeping sats 92 and above. 5. We will follow chest x-ray in few days after dialysis. 6. Steroid taper. 7. Follow Oncology recommendations. 8. s/p left thoracentesis, follow results 9. add EDIN Zarate MD Dec 05, 2016 11:25
[2016-12-05] MEDS: ALBUTEROL SULFATE 2.5 MG/3 ML NEBU. NEB PRN (18:07)
[2016-12-05] MEDS: MONTELUKAST SODIUM 10 MG TABLET. PO SCH (21:03)
[2016-12-05] MEDS: DIPHENHYDRAMINE HCL 25 MG CAPSULE PO SCH (21:03)
[2016-12-05] MEDS: CETIRIZINE HCL 10 MG TABLET PO SCH (21:04)
[2016-12-05] MEDS: DARBEPOETIN ALFA 60 MCG/0.3 ML DISP.SYRIN. SQ SCH (21:26)
[2016-12-06 03:00] VITALS: BP 145/65
[2016-12-06] MEDS: MORPHINE SULFATE 2 MG/ML DISP.SYRIN. IV PRN ×7 (03:19→21:35)
[2016-12-06] MEDS: ONDANSETRON PF 4 MG/2 ML VIAL. IV PRN ×3 (03:19→13:40)
[2016-12-06] MEDS: PANTOPRAZOLE SODIUM IV 80 MG in IV NORMAL SALINE 100ML 100 ML IV SCH ×2 (03:20→16:28)
[2016-12-06] MEDS: LEVOTHYROXINE 100 MCG TABLET PO SCH (05:45)
[2016-12-06 06:19] LABS: BASO # 0.1 x10^3/uL (0.0-0.2); BASO % 0 % (0-3); EOS % 0 % (0-3); HEMATOCRIT 27.8 % (36.0-47.0); HEMOGLOBIN 9.2 g/dL (12.0-15.5); LYMPH # 0.5 x10^3/uL (1.0-4.8); LYMPH % 3 % (24-48); MEAN CORPUSCULAR HEMOGLOBIN 31 pg (25-35); MEAN CORPUSCULAR HGB CONC 33 g/dL (31-37); MEAN CORPUSCULAR VOLUME 93 fL (79-100); MONO % 6 % (0-9); NEUT % 91 % (31-73); PLATELET COUNT 72 x10^3/uL (140-400); RED BLOOD COUNT 2.98 x10^6/uL (3.50-5.40); RED CELL DISTRIBUTION WIDTH 16.5 % (11.5-14.5); WHITE BLOOD COUNT 20.6 x10^3/uL (4.0-11.0)
[2016-12-06 06:38] LABS: CALCIUM 8.4 mg/dL (8.5-10.1); CREATININE 4.3 mg/dL (0.6-1.0); GFR 11.4; POTASSIUM 4.4 mmol/L (3.5-5.1)
[2016-12-06 07:55] VITALS: BP 119/65
--- NOTE | 2016-12-06 07:57 | PDOC ---
SUBJECTIVE Subjective Pt states that she feels very tired. Abdominal pain slightly improving. Bowel movements decreasing, only dark blood in her stools. Pt is wondering if she can eat today. Denies any symptoms of infection. OBJECTIVE Vital Signs Vital Signs Date Time Temp Pulse Resp B/P Pulse Ox O2 Delivery O2 Flow Rate FiO2 12/06/16 06:15 99 Nasal Cannula 2.0 12/06/16 05:45 99 Nasal Cannula 2.0 12/06/16 03:19 99 Nasal Cannula 2.0 12/06/16 03:00 98.5 79 20 145/65 95 Nasal Cannula 2.0 98.5 12/05/16 23:00 97.7 80 20 109/71 99 Nasal Cannula 2.0 97.7 12/05/16 21:06 96 Nasal Cannula 2.0 12/05/16 21:04 84 172/66 12/05/16 21:04 84 172/66 12/05/16 19:00 97.4 84 20 172/66 96 Nasal Cannula 2.0 97.4 12/05/16 18:07 98 Nasal Cannula 5.0 12/05/16 18:04 Nasal Cannula 2.0 12/05/16 18:01 97.3 80 161/74 97 Nasal Cannula 2.0 97.3 12/05/16 17:40 80 161/74 12/05/16 17:06 97.3 80 20 161/74 97 Nasal Cannula 2.0 97.3 12/05/16 16:00 97.3 80 20 161/74 Nasal Cannula 2.0 97.3 12/05/16 14:08 30 12/05/16 13:34 84 172/73 12/05/16 13:33 22 98 2.0 12/05/16 12:00 98.7 87 27 157/70 98 Nasal Cannula 2.0 98.7 12/05/16 11:02 22 88 Nasal Cannula 2.0 12/05/16 09:17 99 Nasal Cannula 5.0 12/05/16 09:00 87 25 196/87 100 Nasal Cannula 2.0 12/05/16 08:57 23 Nasal Cannula 2.0 12/05/16 08:56 87 180/72 12/05/16 08:56 97 188/71 12/05/16 08:56 87 180/72 12/05/16 08:56 87 180/72 12/05/16 08:00 97.4 91 33 183/79 96 Nasal Cannula 2.0 97.4 12/05/16 08:00 Nasal Cannula 2.0 I & O Intake and Output 12/06/16 06:59 Intake Total 150 ml Output Total 850 ml Balance -700 ml Intake Oral 150 ml Output Urine Total 850 ml # Voids 2 # Bowel Movements 2 PHYSICAL EXAM Physical Exam GEN: NAD, AOx3, initially sleeping but easy to arouse HEENT: MMM, EOMI, no scleral icterus/injection Cardiac: RRR, no M/R/G Lungs: CTAB Abd: soft, TTP suprapubic Ext: no erythema/edema LE bilaterally Neuro: CN2-12 GI Psych: normal mood and affect ASSESSMENT/PLAN Assessment/Plan Pt is a 41yo CF initially admitted for acute on chronic CHF, found later to have GI bleed 1)Acute on chronic CHF- s/p thoracentesis and additional HD sessions. Improved. Pt is currently on Lasix 80mg TID 2)Hx of multiple myeloma- pt in remission. Continued on Acyclovir 3)Acute on chronic anemia- 2/2 GI bleed, s/p cauterization/endo-clip/epi injection and 4 units PRBC, initially. Hb increased from 4.1 to 10.7 and then dropped back down. Pt is now s/p gelfoam embolization of left gastric artery and 3 more units PRBC and 2 units FFP. Bleeding appears to have resolved, Hb this morning is 9.2 from 10 yesterday. GI Following. 4)HTN- moderately controlled. Currently receiving Carvedilol 25mg BID, Hydralazine 50mg TID, Clonidine patch, Norvasc 10mg QHS, Lisionpril 10mg, Imdur 30mg. Will have Hydralazine IV prn. 5)ESRD- Renal following, s/p HD Sunday. Electrolytes WNL 6)Hypothyroidism- TSH elevated at 13.304, currently receiving Levothyroxine 100mcg 7)Anxiety/Depression- pt currently receiving Paroxetine 20mg and Lorazepam 8)Asthma- pt continued on Pulmicort BID and Albuterol prn 9)Leukocytosis- pt was on high dose steroids last week. WBC continuing to increase this morning. Pt not having any signs or symptoms of infection. Blood cultures ordered yesterday, will also obtain U/A. 10)PEM- severe 11)Thrombocytopenia- s/p 2 units FFP. Platelets increased this morning to 72. Problems: COMMENT Lab Laboratory Tests Test 12/06/16 05:35 White Blood Count 20.6x10^3/uL (4.0-11.0) Red Blood Count 2.98x10^6/uL (3.50-5.40) Hemoglobin 9.2g/dL (12.0-15.5) Hematocrit 27.8% (36.0-47.0) Mean Corpuscular Volume 93fL (79-100) Mean Corpuscular Hemoglobin 31pg (25-35) Mean Corpuscular Hemoglobin Concent 33g/dL (31-37) Red Cell Distribution Width 16.5% (11.5-14.5) Platelet Count 72x10^3/uL (140-400) Neutrophils (%) (Auto) 91% (31-73) Lymphocytes (%) (Auto) 3% (24-48) Monocytes (%) (Auto) 6% (0-9) Eosinophils (%) (Auto) 0% (0-3) Basophils (%) (Auto) 0% (0-3) Neutrophils # (Auto) 18.8x10^3uL (1.8-7.7) Lymphocytes # (Auto) 0.5x10^3/uL (1.0-4.8) Monocytes # (Auto) 1.2x10^3/uL (0.0-1.1) Eosinophils # (Auto) 0.0x10^3/uL (0.0-0.7) Basophils # (Auto) 0.1x10^3/uL (0.0-0.2) Sodium Level 142mmol/L (136-145) Potassium Level 4.4mmol/L (3.5-5.1) Chloride Level 102mmol/L (98-107) Carbon Dioxide Level 28mmol/L (21-32) Anion Gap 12 (6-14) Blood Urea Nitrogen 64mg/dL (7-20) Creatinine 4.3mg/dL (0.6-1.0) Estimated GFR (Cockcroft-Gault) 11.4 Glucose Level 83mg/dL (70-99) Calcium Level 8.4mg/dL (8.5-10.1) GERI FIERRO MD Dec 06, 2016 07:57
[2016-12-06] MEDS: SEVELAMER CARBONATE 800 MG TABLET. PO SCH ×3 (08:00→16:27)
[2016-12-06] MEDS: LACTOBACILLUS ACIDOPH & BULGAR 1 TABLET. PO SCH ×3 (08:00→16:27)
[2016-12-06] MEDS: BUDESONIDE 0.5 MG/2 ML NEBU NEB SCH ×2 (08:10→21:00)
--- NOTE | 2016-12-06 08:26 | PDOC ---
SURGICAL PROGRESS NOTE Subjective Pt feels better, using bedside commode, would like to eat, no n/V, min blood in stool Vital Signs Vital Signs Date Time Temp Pulse Resp B/P Pulse Ox O2 Delivery O2 Flow Rate FiO2 12/06/16 08:10 Nasal Cannula 5.0 12/06/16 07:55 97.9 80 18 119/65 97 97.9 I&O Intake and Output 12/06/16 07:00 Intake Total 150 ml Output Total 850 ml Balance -700 ml Intake Oral 150 ml Output Urine Total 850 ml # Voids 2 # Bowel Movements 2 General: Alert, Oriented X3, Cooperative, No acute distress Labs Laboratory Tests Test 12/04/16 08:40 12/04/16 11:00 12/04/16 16:00 12/04/16 16:45 White Blood Count 15.5x10^3/uL (4.0-11.0) 11.0x10^3/uL (4.0-11.0) 12.7x10^3/uL (4.0-11.0) Red Blood Count 2.12x10^6/uL (3.50-5.40) 1.82x10^6/uL (3.50-5.40) 1.62x10^6/uL (3.50-5.40) Hemoglobin 6.3g/dL (12.0-15.5) 5.6g/dL (12.0-15.5) 4.9g/dL (12.0-15.5) Hematocrit 19.4% (36.0-47.0) 17.0% (36.0-47.0) 15.2% (36.0-47.0) Mean Corpuscular Volume 91fL (79-100) 93fL (79-100) 94fL (79-100) Mean Corpuscular Hemoglobin 30pg (25-35) 31pg (25-35) 30pg (25-35) Mean Corpuscular Hemoglobin Concent 33g/dL (31-37) 33g/dL (31-37) 32g/dL (31-37) Red Cell Distribution Width 18.9% (11.5-14.5) 18.7% (11.5-14.5) 18.8% (11.5-14.5) Platelet Count 110x10^3/uL (140-400) 9x10^3/uL (140-400) 83x10^3/uL (140-400) Neutrophils (%) (Auto) 81% (31-73) Lymphocytes (%) (Auto) 12% (24-48) Monocytes (%) (Auto) 7% (0-9) Eosinophils (%) (Auto) 0% (0-3) Basophils (%) (Auto) 0% (0-3) Neutrophils # (Auto) 12.6x10^3uL (1.8-7.7) Lymphocytes # (Auto) 1.8x10^3/uL (1.0-4.8) Monocytes # (Auto) 1.0x10^3/uL (0.0-1.1) Eosinophils # (Auto) 0.0x10^3/uL (0.0-0.7) Basophils # (Auto) 0.0x10^3/uL (0.0-0.2) Segmented Neutrophils % 88% (35-66) Lymphocytes % 3% (24-48) Monocytes % 8% (0-10) Myelocytes % 1% (0-0) Nucleated Red Blood Cells 2 Toxic Granulation Mod Platelet Estimate Decreased (ADEQUATE) Polychromasia Slight Anisocytosis Mod Sodium Level 139mmol/L (136-145) Potassium Level 5.5mmol/L (3.5-5.1) Chloride Level 101mmol/L (98-107) Carbon Dioxide Level 26mmol/L (21-32) Anion Gap 12 (6-14) Blood Urea Nitrogen 88mg/dL (7-20) Creatinine 4.8mg/dL (0.6-1.0) Estimated GFR (Cockcroft-Gault) 10.0 Glucose Level 87mg/dL (70-99) Calcium Level 8.2mg/dL (8.5-10.1) Phosphorus Level 6.6mg/dL (2.6-4.7) Albumin 2.2g/dL (3.4-5.0) Nasal Screen MRSA (PCR) Negative (Negative) Test 12/04/16 22:45 12/05/16 06:20 12/06/16 05:35 White Blood Count 17.9x10^3/uL (4.0-11.0) 17.2x10^3/uL (4.0-11.0) 20.6x10^3/uL (4.0-11.0) Red Blood Count 3.59x10^6/uL (3.50-5.40) 3.25x10^6/uL (3.50-5.40) 2.98x10^6/uL (3.50-5.40) Hemoglobin 10.9g/dL (12.0-15.5) 10.0g/dL (12.0-15.5) 9.2g/dL (12.0-15.5) Hematocrit 32.5% (36.0-47.0) 29.3% (36.0-47.0) 27.8% (36.0-47.0) Mean Corpuscular Volume 91fL (79-100) 90fL (79-100) 93fL (79-100) Mean Corpuscular Hemoglobin 30pg (25-35) 31pg (25-35) 31pg (25-35) Mean Corpuscular Hemoglobin Concent 34g/dL (31-37) 34g/dL (31-37) 33g/dL (31-37) Red Cell Distribution Width 15.7% (11.5-14.5) 15.7% (11.5-14.5) 16.5% (11.5-14.5) Platelet Count 86x10^3/uL (140-400) 69x10^3/uL (140-400) 72x10^3/uL (140-400) Prothrombin Time 14.5SEC (11.7-14.0) Prothromb Time International Ratio 1.2 (0.8-1.1) Neutrophils (%) (Auto) 90% (31-73) 91% (31-73) Lymphocytes (%) (Auto) 4% (24-48) 3% (24-48) Monocytes (%) (Auto) 6% (0-9) 6% (0-9) Eosinophils (%) (Auto) 0% (0-3) 0% (0-3) Basophils (%) (Auto) 0% (0-3) 0% (0-3) Neutrophils # (Auto) 15.5x10^3uL (1.8-7.7) 18.8x10^3uL (1.8-7.7) Lymphocytes # (Auto) 0.7x10^3/uL (1.0-4.8) 0.5x10^3/uL (1.0-4.8) Monocytes # (Auto) 1.0x10^3/uL (0.0-1.1) 1.2x10^3/uL (0.0-1.1) Eosinophils # (Auto) 0.0x10^3/uL (0.0-0.7) 0.0x10^3/uL (0.0-0.7) Basophils # (Auto) 0.0x10^3/uL (0.0-0.2) 0.1x10^3/uL (0.0-0.2) Sodium Level 141mmol/L (136-145) 142mmol/L (136-145) Potassium Level 4.0mmol/L (3.5-5.1) 4.4mmol/L (3.5-5.1) Chloride Level 101mmol/L (98-107) 102mmol/L (98-107) Carbon Dioxide Level 30mmol/L (21-32) 28mmol/L (21-32) Anion Gap 10 (6-14) 12 (6-14) Blood Urea Nitrogen 44mg/dL (7-20) 64mg/dL (7-20) Creatinine 2.9mg/dL (0.6-1.0) 4.3mg/dL (0.6-1.0) Estimated GFR (Cockcroft-Gault) 17.9 11.4 Glucose Level 85mg/dL (70-99) 83mg/dL (70-99) Calcium Level 8.4mg/dL (8.5-10.1) 8.4mg/dL (8.5-10.1) Phosphorus Level 4.9mg/dL (2.6-4.7) Albumin 2.7g/dL (3.4-5.0) Laboratory Tests Test 12/06/16 05:35 White Blood Count 20.6x10^3/uL (4.0-11.0) Red Blood Count 2.98x10^6/uL (3.50-5.40) Hemoglobin 9.2g/dL (12.0-15.5) Hematocrit 27.8% (36.0-47.0) Mean Corpuscular Volume 93fL (79-100) Mean Corpuscular Hemoglobin 31pg (25-35) Mean Corpuscular Hemoglobin Concent 33g/dL (31-37) Red Cell Distribution Width 16.5% (11.5-14.5) Platelet Count 72x10^3/uL (140-400) Neutrophils (%) (Auto) 91% (31-73) Lymphocytes (%) (Auto) 3% (24-48) Monocytes (%) (Auto) 6% (0-9) Eosinophils (%) (Auto) 0% (0-3) Basophils (%) (Auto) 0% (0-3) Neutrophils # (Auto) 18.8x10^3uL (1.8-7.7) Lymphocytes # (Auto) 0.5x10^3/uL (1.0-4.8) Monocytes # (Auto) 1.2x10^3/uL (0.0-1.1) Eosinophils # (Auto) 0.0x10^3/uL (0.0-0.7) Basophils # (Auto) 0.1x10^3/uL (0.0-0.2) Sodium Level 142mmol/L (136-145) Potassium Level 4.4mmol/L (3.5-5.1) Chloride Level 102mmol/L (98-107) Carbon Dioxide Level 28mmol/L (21-32) Anion Gap 12 (6-14) Blood Urea Nitrogen 64mg/dL (7-20) Creatinine 4.3mg/dL (0.6-1.0) Estimated GFR (Cockcroft-Gault) 11.4 Glucose Level 83mg/dL (70-99) Calcium Level 8.4mg/dL (8.5-10.1) Problem List Problems Medical Problems: (1) Accelerated hypertension Status: Acute (2) Acute on chronic diastolic congestive heart failure due to valvular disease Status: Acute (3) Bilateral pleural effusion Status: Acute (4) Cardiomyopathy Status: Acute (5) COPD with acute exacerbation Status: Acute (6) End stage renal disease Status: Acute Assessment/Plan anastamotic ulcer cont PPI clears Problems: TIMOTHY,ROBERTO J MD Dec 06, 2016 08:26
[2016-12-06] MEDS: FOLIC/VIT B COMP W-C (RENAL) TABLET. PO SCH (08:32)
[2016-12-06] MEDS: ASPIRIN ENTERIC COATED 81 MG TABLET.DR. PO SCH (08:33)
[2016-12-06] MEDS: ACYCLOVIR 200 MG CAPSULE PO SCH ×2 (08:33→21:36)
[2016-12-06] MEDS: FUROSEMIDE 80 MG TABLET PO SCH ×3 (08:33→16:29)
[2016-12-06] MEDS: LISINOPRIL 10 MG TABLET PO SCH (08:33)
[2016-12-06] MEDS: ISOSORBIDE MONONITRATE ER 30 MG TAB.ER.24H PO SCH (08:33)
[2016-12-06] MEDS: HYDRALAZINE 50 MG TABLET PO SCH ×3 (08:34→21:37)
[2016-12-06] MEDS: CARVEDILOL 12.5 MG TABLET PO SCH ×2 (08:34→16:30)
[2016-12-06 09:11] LABS: BILIRUBIN,URINE NEGATIVE (NEG); GLUCOSE,URINE NEGATIVE (NEG); NITRITE,URINE NEGATIVE (NEG); PH,URINE 7.5; PROTEIN,URINE 30 mg/dL (NEG-TRACE); UROBILINOGEN,URINE 0.2 mg/dL (0.2 mg/dL)
[2016-12-06 09:22] LABS: BACTERIA,URINE MANY /HPF (0-FEW)
[2016-12-06 09:23] LABS: SQUAMOUS EPITHELIAL CELL,UR MANY /LPF
[2016-12-06] MEDS: CLONIDINE TTS-2 PATCH TD SCH (10:51)
[2016-12-06 11:07] VITALS: BP 123/60
--- NOTE | 2016-12-06 11:51 | PDOC ---
PULMONARY PROGRESS NOTES Subjective NO INCREASE SOA Vitals Vital Signs Date Time Temp Pulse Resp B/P Pulse Ox O2 Delivery O2 Flow Rate FiO2 12/06/16 11:07 97.6 82 123/60 97 Nasal Cannula 2.0 97.6 12/06/16 07:55 18 ROS: No Nausea, No Chest Pain, No Abdominal Pain, No Increase Cough General: Alert, No acute distress Lungs: Crackles Cardiovascular: S1, S2 Abdomen: Soft Neuro Exam: Alert Extremities: No Edema Skin: Warm Labs Laboratory Tests Test 12/04/16 16:00 12/04/16 16:45 12/04/16 22:45 12/05/16 06:20 Nasal Screen MRSA (PCR) Negative (Negative) White Blood Count 12.7x10^3/uL (4.0-11.0) 17.9x10^3/uL (4.0-11.0) 17.2x10^3/uL (4.0-11.0) Red Blood Count 1.62x10^6/uL (3.50-5.40) 3.59x10^6/uL (3.50-5.40) 3.25x10^6/uL (3.50-5.40) Hemoglobin 4.9g/dL (12.0-15.5) 10.9g/dL (12.0-15.5) 10.0g/dL (12.0-15.5) Hematocrit 15.2% (36.0-47.0) 32.5% (36.0-47.0) 29.3% (36.0-47.0) Mean Corpuscular Volume 94fL (79-100) 91fL (79-100) 90fL (79-100) Mean Corpuscular Hemoglobin 30pg (25-35) 30pg (25-35) 31pg (25-35) Mean Corpuscular Hemoglobin Concent 32g/dL (31-37) 34g/dL (31-37) 34g/dL (31-37) Red Cell Distribution Width 18.8% (11.5-14.5) 15.7% (11.5-14.5) 15.7% (11.5-14.5) Platelet Count 83x10^3/uL (140-400) 86x10^3/uL (140-400) 69x10^3/uL (140-400) Prothrombin Time 14.5SEC (11.7-14.0) Prothromb Time International Ratio 1.2 (0.8-1.1) Neutrophils (%) (Auto) 90% (31-73) Lymphocytes (%) (Auto) 4% (24-48) Monocytes (%) (Auto) 6% (0-9) Eosinophils (%) (Auto) 0% (0-3) Basophils (%) (Auto) 0% (0-3) Neutrophils # (Auto) 15.5x10^3uL (1.8-7.7) Lymphocytes # (Auto) 0.7x10^3/uL (1.0-4.8) Monocytes # (Auto) 1.0x10^3/uL (0.0-1.1) Eosinophils # (Auto) 0.0x10^3/uL (0.0-0.7) Basophils # (Auto) 0.0x10^3/uL (0.0-0.2) Sodium Level 141mmol/L (136-145) Potassium Level 4.0mmol/L (3.5-5.1) Chloride Level 101mmol/L (98-107) Carbon Dioxide Level 30mmol/L (21-32) Anion Gap 10 (6-14) Blood Urea Nitrogen 44mg/dL (7-20) Creatinine 2.9mg/dL (0.6-1.0) Estimated GFR (Cockcroft-Gault) 17.9 Glucose Level 85mg/dL (70-99) Calcium Level 8.4mg/dL (8.5-10.1) Phosphorus Level 4.9mg/dL (2.6-4.7) Albumin 2.7g/dL (3.4-5.0) Test 12/06/16 05:35 12/06/16 08:40 White Blood Count 20.6x10^3/uL (4.0-11.0) Red Blood Count 2.98x10^6/uL (3.50-5.40) Hemoglobin 9.2g/dL (12.0-15.5) Hematocrit 27.8% (36.0-47.0) Mean Corpuscular Volume 93fL (79-100) Mean Corpuscular Hemoglobin 31pg (25-35) Mean Corpuscular Hemoglobin Concent 33g/dL (31-37) Red Cell Distribution Width 16.5% (11.5-14.5) Platelet Count 72x10^3/uL (140-400) Neutrophils (%) (Auto) 91% (31-73) Lymphocytes (%) (Auto) 3% (24-48) Monocytes (%) (Auto) 6% (0-9) Eosinophils (%) (Auto) 0% (0-3) Basophils (%) (Auto) 0% (0-3) Neutrophils # (Auto) 18.8x10^3uL (1.8-7.7) Lymphocytes # (Auto) 0.5x10^3/uL (1.0-4.8) Monocytes # (Auto) 1.2x10^3/uL (0.0-1.1) Eosinophils # (Auto) 0.0x10^3/uL (0.0-0.7) Basophils # (Auto) 0.1x10^3/uL (0.0-0.2) Sodium Level 142mmol/L (136-145) Potassium Level 4.4mmol/L (3.5-5.1) Chloride Level 102mmol/L (98-107) Carbon Dioxide Level 28mmol/L (21-32) Anion Gap 12 (6-14) Blood Urea Nitrogen 64mg/dL (7-20) Creatinine 4.3mg/dL (0.6-1.0) Estimated GFR (Cockcroft-Gault) 11.4 Glucose Level 83mg/dL (70-99) Calcium Level 8.4mg/dL (8.5-10.1) Urine Collection Type Unknown Urine Color Yellow Urine Clarity Clear Urine pH 7.5 Urine Specific [place] 1.010 Urine Protein 30mg/dL (NEG-TRACE) Urine Glucose (UA) Negativemg/dL (NEG) Urine Ketones (Stick) Negativemg/dL (NEG) Urine Blood Large (NEG) Urine Nitrite Negative (NEG) Urine Bilirubin Negative (NEG) Urine Urobilinogen Dipstick 0.2mg/dL (0.2 mg/dL) Urine Leukocyte Esterase Small (NEG) Urine RBC 11-20/HPF (0-2) Urine WBC 11-20/HPF (0-4) Urine Squamous Epithelial Cells Many/LPF Urine Bacteria Many/HPF (0-FEW) Laboratory Tests Test 12/06/16 05:35 12/06/16 08:40 White Blood Count 20.6x10^3/uL (4.0-11.0) Red Blood Count 2.98x10^6/uL (3.50-5.40) Hemoglobin 9.2g/dL (12.0-15.5) Hematocrit 27.8% (36.0-47.0) Mean Corpuscular Volume 93fL (79-100) Mean Corpuscular Hemoglobin 31pg (25-35) Mean Corpuscular Hemoglobin Concent 33g/dL (31-37) Red Cell Distribution Width 16.5% (11.5-14.5) Platelet Count 72x10^3/uL (140-400) Neutrophils (%) (Auto) 91% (31-73) Lymphocytes (%) (Auto) 3% (24-48) Monocytes (%) (Auto) 6% (0-9) Eosinophils (%) (Auto) 0% (0-3) Basophils (%) (Auto) 0% (0-3) Neutrophils # (Auto) 18.8x10^3uL (1.8-7.7) Lymphocytes # (Auto) 0.5x10^3/uL (1.0-4.8) Monocytes # (Auto) 1.2x10^3/uL (0.0-1.1) Eosinophils # (Auto) 0.0x10^3/uL (0.0-0.7) Basophils # (Auto) 0.1x10^3/uL (0.0-0.2) Sodium Level 142mmol/L (136-145) Potassium Level 4.4mmol/L (3.5-5.1) Chloride Level 102mmol/L (98-107) Carbon Dioxide Level 28mmol/L (21-32) Anion Gap 12 (6-14) Blood Urea Nitrogen 64mg/dL (7-20) Creatinine 4.3mg/dL (0.6-1.0) Estimated GFR (Cockcroft-Gault) 11.4 Glucose Level 83mg/dL (70-99) Calcium Level 8.4mg/dL (8.5-10.1) Urine Collection Type Unknown Urine Color Yellow Urine Clarity Clear Urine pH 7.5 Urine Specific [place] 1.010 Urine Protein 30mg/dL (NEG-TRACE) Urine Glucose (UA) Negativemg/dL (NEG) Urine Ketones (Stick) Negativemg/dL (NEG) Urine Blood Large (NEG) Urine Nitrite Negative (NEG) Urine Bilirubin Negative (NEG) Urine Urobilinogen Dipstick 0.2mg/dL (0.2 mg/dL) Urine Leukocyte Esterase Small (NEG) Urine RBC 11-20/HPF (0-2) Urine WBC 11-20/HPF (0-4) Urine Squamous Epithelial Cells Many/LPF Urine Bacteria Many/HPF (0-FEW) Medications Active Scripts Medications Dose Route/Sig Days Date Category Levaquin (Levofloxacin) 500 Mg Tablet 500 Mg PO Q48H 09/30/16 Rx Lisinopril 10 Mg Tablet 10 Mg PO DAILY 30 07/06/16 Rx Hydrocodone-Apap 7.5-325 (Hydrocodone Bit/Acetaminophen) 1 Each Tablet 1 Tab PO PRN Q4HRS PRN 14 07/06/16 Rx Flector (Diclofenac Epolamine) 1 Each Patch.td12 1 Patch TD BID 30 07/06/16 Rx Aranesp Syringe (Darbepoetin Apolinar In Polysorbat) 60 Mcg/0.3 Ml Disp.syrin 60 Mcg SQ WEEKLYHS 30 07/06/16 Rx Furosemide 80 Mg Tablet 80 Mg PO TID 30 07/06/16 Rx Lorazepam 1 Mg Tablet 1 Mg PO PRN Q6HRS PRN 07/02/16 Reported Renvela (Sevelamer Carbonate) 800 Mg Tablet 2 Tab PO TID 07/02/16 Reported Loperamide (Loperamide Hcl) 2 Mg Capsule 2 Mg PO PRN Q15MIN PRN 30 06/09/16 Rx Isosorbide Mononitrate Er (Isosorbide Mononitrate) 30 Mg Tab.er.24h 30 Mg PO DAILY 30 06/09/16 Rx Maren-Bid Caplet (Acidoph/L.bulg/Bif.b/S.thermop) 1 Each Tablet 1 Tab PO TIDWMEALS 30 06/09/16 Rx Lidocaine-Prilocaine Cream (Lidocaine/Prilocaine) 30 Gm Cream..g. 1 Oniel TP UD 06/04/16 Reported Dicyclomine Hcl 20 Mg Tablet 1 Tab PO TID PRN 06/04/16 Reported Clonidine Hcl 0.3 Mg Tablet 0.3 Mg PO TID 06/04/16 Reported Amlodipine Besylate 10 Mg Tablet 10 Mg PO HS 06/04/16 Reported Renal Caps Softgel (Folic Acid/Vitamin B Comp W-C) 1 Mg Capsule 1 Cap PO DAILY 01/16/16 Reported Advair 250-50 Diskus (Fluticasone/Salmeterol) 1 Each Disk.w.dev 2 Puff IH DAILY 01/16/16 Reported Proair Hfa Inhaler (Albuterol Sulfate) 8.5 Gm Hfa.aer.ad 2 Puff INH PRN Q6HRS PRN 01/16/16 Reported Acyclovir 200 Mg Capsule 200 Mg PO BID 01/16/16 Reported Paroxetine Hcl 20 Mg Tablet 20 Mg PO QHS 05/09/15 Reported Nighttime Sleep Aid (Diphenhydramine Hcl) 50 Mg Capsule 50 Mg PO QHS 05/09/15 Reported Ondansetron Hcl 8 Mg Tablet 8 Mg PO BID PRN 05/09/14 Reported Methocarbamol 750 Mg Tablet 1,500 Mg PO QID PRN 05/09/14 Reported Tylenol Extra Strength (Acetaminophen) 500 Mg Tablet 500 Mg PO Q6HRS PRN 05/09/14 Reported Claritin (Loratadine) 10 Mg Capsule 10 Mg PO HS 05/09/14 Reported Comments cxr reviewed. There is less left pleural fluid than previously consistent with the interval thoracentesis. Impression . 1. ACUTE/CHRONIC RESP FAILURE MULTIFACTORIAL 2. ACUTE GI BLEED S/P EMBOLIZATION 3. A/C DIASTOLIC/SYST HEART FAILURE 4. Chronic respiratory failure, on home oxygen. 5. History of multiple myeloma, currently on chemo. 6. End-stage renal disease, on hemodialysis. 7. PLEURAL EFFUSION S/P THORACENTESIS Plan . RESP STATUS IS COMPENSATED FOLLOW GI INPUT FOLLOW CYTOLOGY ON PLEURAL FLUIID CONTINUE THE SAME DIET PER GI EDIN ALLAN MD Dec 06, 2016 11:51
--- NOTE | 2016-12-06 12:14 | PDOC ---
Subjective: Subjective: Per pt - getting better w/ less abd pain, tolerating clear liquids, had two dark (maybe black) stools overnight. Objective: Objective: Per RN - received report of dark stools overnight. Asks for pain meds. Vital Signs: Vital Signs Date Time Temp Pulse Resp B/P Pulse Ox O2 Delivery O2 Flow Rate FiO2 12/06/16 11:07 97.6 82 123/60 97 Nasal Cannula 2.0 97.6 12/06/16 07:55 18 Labs: Laboratory Tests Test 12/06/16 05:35 12/06/16 08:40 White Blood Count 20.6x10^3/uL Red Blood Count 2.98x10^6/uL Hemoglobin 9.2g/dL Hematocrit 27.8% Mean Corpuscular Volume 93fL Mean Corpuscular Hemoglobin 31pg Mean Corpuscular Hemoglobin Concent 33g/dL Red Cell Distribution Width 16.5% Platelet Count 72x10^3/uL Neutrophils (%) (Auto) 91% Lymphocytes (%) (Auto) 3% Monocytes (%) (Auto) 6% Eosinophils (%) (Auto) 0% Basophils (%) (Auto) 0% Neutrophils # (Auto) 18.8x10^3uL Lymphocytes # (Auto) 0.5x10^3/uL Monocytes # (Auto) 1.2x10^3/uL Eosinophils # (Auto) 0.0x10^3/uL Basophils # (Auto) 0.1x10^3/uL Sodium Level 142mmol/L Potassium Level 4.4mmol/L Chloride Level 102mmol/L Carbon Dioxide Level 28mmol/L Anion Gap 12 Blood Urea Nitrogen 64mg/dL Creatinine 4.3mg/dL Estimated GFR (Cockcroft-Gault) 11.4 Glucose Level 83mg/dL Calcium Level 8.4mg/dL Urine Collection Type Unknown Urine Color Yellow Urine Clarity Clear Urine pH 7.5 Urine Specific [place] 1.010 Urine Protein 30mg/dL Urine Glucose (UA) Negativemg/dL Urine Ketones (Stick) Negativemg/dL Urine Blood Large Urine Nitrite Negative Urine Bilirubin Negative Urine Urobilinogen Dipstick 0.2mg/dL Urine Leukocyte Esterase Small Urine RBC 11-20/HPF Urine WBC 11-20/HPF Urine Squamous Epithelial Cells Many/LPF Urine Bacteria Many/HPF PE: GEN: NAD, dialyzing LUNGS: clear anteriorly HEART: RRR ABD: BS+, less tender NEURO/PSYCH: A & O 3 A/P: Melena, anemia -Hgb from 10 to 9.2 -reports two dark stools overnight w/ less abd pain -started clears today -on PPI drip Gastric ulcer, h/o gastric bypass -s/p cautery/endo-clip/epi inj 12/03 -CTA neg for bleeding; s/p celiac + LGA injections, empiric embolization of LGA branches 12/04 -poor surgical candidate -- Now on clear liquids w/ improving abd pain - still some dark stools w/ stable Hgb. Would continue same, will review w/ Dr. Quintero. AYAH ESPINOSA Dec 06, 2016 12:14
--- NOTE | 2016-12-06 14:50 | PDOC ---
Renal-Progress Notes Subjective Notes Notes FEELING BETTER History of Present Illness Hx of present illness IMPROVED Vitals Vitals Vital Signs Date Time Temp Pulse Resp B/P Pulse Ox O2 Delivery O2 Flow Rate FiO2 12/06/16 13:42 Nasal Cannula 2.5 12/06/16 11:07 97.6 82 123/60 97 97.6 12/06/16 07:55 18 Weight Weight [ ] I.O. Intake and Output Intake and Output 12/06/16 07:00 Intake Total 150 ml Output Total 850 ml Balance -700 ml Intake Oral 150 ml Output Urine Total 850 ml # Voids 2 # Bowel Movements 2 Labs Labs Laboratory Tests Test 12/06/16 05:35 12/06/16 08:40 White Blood Count 20.6x10^3/uL (4.0-11.0) Red Blood Count 2.98x10^6/uL (3.50-5.40) Hemoglobin 9.2g/dL (12.0-15.5) Hematocrit 27.8% (36.0-47.0) Mean Corpuscular Volume 93fL (79-100) Mean Corpuscular Hemoglobin 31pg (25-35) Mean Corpuscular Hemoglobin Concent 33g/dL (31-37) Red Cell Distribution Width 16.5% (11.5-14.5) Platelet Count 72x10^3/uL (140-400) Neutrophils (%) (Auto) 91% (31-73) Lymphocytes (%) (Auto) 3% (24-48) Monocytes (%) (Auto) 6% (0-9) Eosinophils (%) (Auto) 0% (0-3) Basophils (%) (Auto) 0% (0-3) Neutrophils # (Auto) 18.8x10^3uL (1.8-7.7) Lymphocytes # (Auto) 0.5x10^3/uL (1.0-4.8) Monocytes # (Auto) 1.2x10^3/uL (0.0-1.1) Eosinophils # (Auto) 0.0x10^3/uL (0.0-0.7) Basophils # (Auto) 0.1x10^3/uL (0.0-0.2) Sodium Level 142mmol/L (136-145) Potassium Level 4.4mmol/L (3.5-5.1) Chloride Level 102mmol/L (98-107) Carbon Dioxide Level 28mmol/L (21-32) Anion Gap 12 (6-14) Blood Urea Nitrogen 64mg/dL (7-20) Creatinine 4.3mg/dL (0.6-1.0) Estimated GFR (Cockcroft-Gault) 11.4 Glucose Level 83mg/dL (70-99) Calcium Level 8.4mg/dL (8.5-10.1) Urine Collection Type Unknown Urine Color Yellow Urine Clarity Clear Urine pH 7.5 Urine Specific [place] 1.010 Urine Protein 30mg/dL (NEG-TRACE) Urine Glucose (UA) Negativemg/dL (NEG) Urine Ketones (Stick) Negativemg/dL (NEG) Urine Blood Large (NEG) Urine Nitrite Negative (NEG) Urine Bilirubin Negative (NEG) Urine Urobilinogen Dipstick 0.2mg/dL (0.2 mg/dL) Urine Leukocyte Esterase Small (NEG) Urine RBC 11-20/HPF (0-2) Urine WBC 11-20/HPF (0-4) Urine Squamous Epithelial Cells Many/LPF Urine Bacteria Many/HPF (0-FEW) Micro Micro Microbiology 12/05/16 Blood Culture - Preliminary, Resulted NO GROWTH AFTER 1 DAY 11/29/16 Gram Stain - Final, Complete Review of Systems Constitutional: yes: alert, oriented, weakness Eyes: Yes: no symptom reported Pulmonary: Yes dyspnea Cardiovascular: Yes no symptom reported Gastrointestional: Yes: no symptom reported Genitourinary: Yes: no symptom reported Musculoskeletal: Yes: no symptom reported Physical Exam General Appearance: no apparent distress Skin: warm Respiratory: decreased breath sounds, wheezing Heart: S1S2, RRR Abdomen: soft, bowel sounds present Neurology: alert, oriented Musculoskeletal: Other Assessment Assessment IMP AECOPD ANEMIA FLUID OVERLOAD ESRD PLAN HD TODAY UF TO DW NATE MAYER MD Dec 06, 2016 14:50
[2016-12-06 15:00] VITALS: BP 125/62
[2016-12-06 19:00] VITALS: BP 168/65
[2016-12-06] MEDS: CETIRIZINE HCL 10 MG TABLET PO SCH (21:36)
[2016-12-06] MEDS: MONTELUKAST SODIUM 10 MG TABLET. PO SCH (21:36)
[2016-12-06] MEDS: DIPHENHYDRAMINE HCL 25 MG CAPSULE PO SCH (21:36)
[2016-12-06] MEDS: ONDANSETRON ODT 4 MG TAB.RAPDIS PO PRN (21:36)
[2016-12-06] MEDS: AMLODIPINE BESYLATE 10 MG TABLET PO SCH (21:38)
[2016-12-06] MEDS: PAROXETINE 20 MG TABLET. PO SCH (21:38)
[2016-12-06 23:00] VITALS: BP 152/64
[2016-12-07] MEDS: PANTOPRAZOLE SODIUM IV 80 MG in IV NORMAL SALINE 100ML 100 ML IV SCH ×3 (02:26→16:51)
[2016-12-07] MEDS: METHOCARBAMOL 750 MG TABLET PO PRN ×3 (02:37→20:39)
[2016-12-07] MEDS: MORPHINE SULFATE 2 MG/ML DISP.SYRIN. IV PRN ×2 (02:38→04:52)
[2016-12-07 03:00] VITALS: BP 138/51
[2016-12-07] MEDS ORDERED: ALTEPLASE 2 MG VIAL INT CAT ONE ×2 (03:15→04:30)
[2016-12-07 05:45] LABS: CALCIUM 7.7 mg/dL (8.5-10.1); GFR 17.2; POTASSIUM 3.4 mmol/L (3.5-5.1)
[2016-12-07 06:00] LABS: BASO % 0 % (0-3); EOS % 1 % (0-3); HEMATOCRIT 25.1 % (36.0-47.0); HEMOGLOBIN 8.5 g/dL (12.0-15.5); LYMPH # 0.6 x10^3/uL (1.0-4.8); LYMPH % 5 % (24-48); MEAN CORPUSCULAR HEMOGLOBIN 32 pg (25-35); MEAN CORPUSCULAR HGB CONC 34 g/dL (31-37); MEAN CORPUSCULAR VOLUME 94 fL (79-100); MONO % 9 % (0-9); NEUT % 85 % (31-73); PLATELET COUNT 54 x10^3/uL (140-400); RED BLOOD COUNT 2.68 x10^6/uL (3.50-5.40); RED CELL DISTRIBUTION WIDTH 16.7 % (11.5-14.5)
[2016-12-07 07:00] VITALS: BP 145/58
[2016-12-07] MEDS: BUDESONIDE 0.5 MG/2 ML NEBU NEB SCH ×2 (07:24→20:06)
[2016-12-07] MEDS: SEVELAMER CARBONATE 800 MG TABLET. PO SCH ×3 (08:00→16:56)
--- NOTE | 2016-12-07 08:13 | PDOC ---
SUBJECTIVE Subjective Pt having increased epigastric pain today. Had dark stool yesterday afternoon, has not had a stool since. Pt's hemorrhoids are bothering her as well. Discussed with Dr. Lange who recommends rescanning pt. Pt did tolerate CLD yesterday. She says the Morphine is not helping her pain at all and is going to try her oral medication today. OBJECTIVE Vital Signs Vital Signs Date Time Temp Pulse Resp B/P Pulse Ox O2 Delivery O2 Flow Rate FiO2 12/07/16 07:25 Nasal Cannula 4.0 12/07/16 05:22 98 Nasal Cannula 2.0 12/07/16 04:52 98 Nasal Cannula 2.0 12/07/16 03:00 98.1 71 18 138/51 98 Nasal Cannula 2.0 98.1 12/06/16 23:00 99.0 79 18 152/64 98 Nasal Cannula 2.0 99.0 12/06/16 21:38 75 168/65 12/06/16 21:37 75 168/65 12/06/16 21:35 98 Nasal Cannula 4.0 12/06/16 21:03 98 Nasal Cannula 4.0 12/06/16 19:00 98.4 75 18 168/65 98 Nasal Cannula 2.0 98.4 12/06/16 16:30 80 125/62 12/06/16 16:29 80 125/62 12/06/16 16:28 Nasal Cannula 2.5 12/06/16 15:00 97.9 80 18 125/62 97 Nasal Cannula 2.0 97.9 12/06/16 13:42 Nasal Cannula 2.5 12/06/16 11:07 97.6 82 123/60 97 Nasal Cannula 2.0 97.6 12/06/16 10:52 Nasal Cannula 2.5 12/06/16 08:34 80 119/65 12/06/16 08:34 80 119/65 12/06/16 08:33 80 119/65 12/06/16 08:33 80 119/65 12/06/16 08:31 Nasal Cannula 2.5 12/06/16 08:10 Nasal Cannula 5.0 12/06/16 08:10 Nasal Cannula 2.5 I & O Intake and Output 12/07/16 07:00 Intake Total 1620 ml Output Total 75 ml Balance 1545 ml Intake Oral 1620 ml Output Urine Total 75 ml # Voids 4 # Bowel Movements 1 PHYSICAL EXAM Physical Exam GEN: NAD, AOx3, initially sleeping but easy to arouse, pale, fatigued HEENT: MMM, EOMI, no scleral icterus/injection Cardiac: RRR, no M/R/G Lungs: CTAB Abd: soft, TTP diffusely but more epigastric, some suprapubic tenderness Ext: no erythema/edema LE bilaterally Neuro: CN2-12 GI Psych: normal mood and affect ASSESSMENT/PLAN Assessment/Plan Pt is a 41yo CF initially admitted for acute on chronic CHF, found later to have GI bleed 1)Acute on chronic CHF- s/p thoracentesis and additional HD sessions. Resolved. Pt is currently on Lasix 80mg TID. Pulmonary following. 2)Hx of multiple myeloma- pt in remission. Continued on Acyclovir. Heme/onc following. 3)Acute on chronic anemia- 2/2 GI bleed, s/p cauterization/endo-clip/epi injection and 4 units PRBC, initially. Hb increased from 4.1 to 10.7 and then dropped back down. Pt is now s/p gelfoam embolization of left gastric artery and 3 more units PRBC and 2 units FFP. Hb has decreased to 8.5 from 10, still having dark stool. Discussed with surgery this morning who recommended rescanning pt. GI and surgery Following. 4)HTN- moderately controlled. Currently receiving Carvedilol 25mg BID, Hydralazine 50mg TID, Clonidine patch, Norvasc 10mg QHS, Lisionpril 10mg, Imdur 30mg. Will have Hydralazine IV prn. 5)ESRD- Renal following, s/p HD Sunday. Electrolytes WNL 6)Hypothyroidism- TSH elevated at 13.304, currently receiving Levothyroxine 100mcg 7)Anxiety/Depression- pt currently receiving Paroxetine 20mg and Lorazepam 8)Asthma- pt continued on Pulmicort BID and Albuterol prn 9)Leukocytosis- pt was on high dose steroids last week. WBC was continuing to increase until this morning and is now WNL. Pt not having any signs or symptoms of infection. Blood cultures negative. U/A appears dirty, culture ordered. Pt not having any urinary symptoms. 10)PEM- severe 11)Thrombocytopenia- s/p 2 units FFP. Platelets decreased to 54. Could be 2/2 Heparin administration. CTM. Problems: COMMENT Lab Laboratory Tests Test 12/06/16 08:40 12/07/16 05:00 Urine Collection Type Unknown Urine Color Yellow Urine Clarity Clear Urine pH 7.5 Urine Specific [place] 1.010 Urine Protein 30mg/dL (NEG-TRACE) Urine Glucose (UA) Negativemg/dL (NEG) Urine Ketones (Stick) Negativemg/dL (NEG) Urine Blood Large (NEG) Urine Nitrite Negative (NEG) Urine Bilirubin Negative (NEG) Urine Urobilinogen Dipstick 0.2mg/dL (0.2 mg/dL) Urine Leukocyte Esterase Small (NEG) Urine RBC 11-20/HPF (0-2) Urine WBC 11-20/HPF (0-4) Urine Squamous Epithelial Cells Many/LPF Urine Bacteria Many/HPF (0-FEW) White Blood Count 11.0x10^3/uL (4.0-11.0) Red Blood Count 2.68x10^6/uL (3.50-5.40) Hemoglobin 8.5g/dL (12.0-15.5) Hematocrit 25.1% (36.0-47.0) Mean Corpuscular Volume 94fL (79-100) Mean Corpuscular Hemoglobin 32pg (25-35) Mean Corpuscular Hemoglobin Concent 34g/dL (31-37) Red Cell Distribution Width 16.7% (11.5-14.5) Platelet Count 54x10^3/uL (140-400) Neutrophils (%) (Auto) 85% (31-73) Lymphocytes (%) (Auto) 5% (24-48) Monocytes (%) (Auto) 9% (0-9) Eosinophils (%) (Auto) 1% (0-3) Basophils (%) (Auto) 0% (0-3) Neutrophils # (Auto) 9.4x10^3uL (1.8-7.7) Lymphocytes # (Auto) 0.6x10^3/uL (1.0-4.8) Monocytes # (Auto) 1.0x10^3/uL (0.0-1.1) Eosinophils # (Auto) 0.1x10^3/uL (0.0-0.7) Basophils # (Auto) 0.0x10^3/uL (0.0-0.2) Sodium Level 143mmol/L (136-145) Potassium Level 3.4mmol/L (3.5-5.1) Chloride Level 102mmol/L (98-107) Carbon Dioxide Level 35mmol/L (21-32) Anion Gap 6 (6-14) Blood Urea Nitrogen 28mg/dL (7-20) Creatinine 3.0mg/dL (0.6-1.0) Estimated GFR (Cockcroft-Gault) 17.2 Glucose Level 106mg/dL (70-99) Calcium Level 7.7mg/dL (8.5-10.1) GERI FIERRO MD Dec 07, 2016 08:13
[2016-12-07] MEDS ORDERED: PHENYLEPH/MINERAL OIL/PETROLAT RECTAL OINTMENT 28GM TUBE. RC PRN (08:15)
--- NOTE | 2016-12-07 08:21 | PDOC ---
SURGICAL PROGRESS NOTE Subjective Pt with c/o some abd pain, betzaida some PO, noted dark stools Vital Signs Vital Signs Date Time Temp Pulse Resp B/P Pulse Ox O2 Delivery O2 Flow Rate FiO2 12/07/16 07:25 Nasal Cannula 4.0 12/07/16 05:22 98 12/07/16 03:00 98.1 71 18 138/51 98.1 I&O Intake and Output 12/07/16 07:00 Intake Total 1620 ml Output Total 75 ml Balance 1545 ml Intake Oral 1620 ml Output Urine Total 75 ml # Voids 4 # Bowel Movements 1 General: Alert, Oriented X3, Cooperative, mild distress Abdomen: Soft, Other (mild TTP) Labs Laboratory Tests Test 12/06/16 05:35 12/06/16 08:40 12/07/16 05:00 White Blood Count 20.6x10^3/uL (4.0-11.0) 11.0x10^3/uL (4.0-11.0) Red Blood Count 2.98x10^6/uL (3.50-5.40) 2.68x10^6/uL (3.50-5.40) Hemoglobin 9.2g/dL (12.0-15.5) 8.5g/dL (12.0-15.5) Hematocrit 27.8% (36.0-47.0) 25.1% (36.0-47.0) Mean Corpuscular Volume 93fL (79-100) 94fL (79-100) Mean Corpuscular Hemoglobin 31pg (25-35) 32pg (25-35) Mean Corpuscular Hemoglobin Concent 33g/dL (31-37) 34g/dL (31-37) Red Cell Distribution Width 16.5% (11.5-14.5) 16.7% (11.5-14.5) Platelet Count 72x10^3/uL (140-400) 54x10^3/uL (140-400) Neutrophils (%) (Auto) 91% (31-73) 85% (31-73) Lymphocytes (%) (Auto) 3% (24-48) 5% (24-48) Monocytes (%) (Auto) 6% (0-9) 9% (0-9) Eosinophils (%) (Auto) 0% (0-3) 1% (0-3) Basophils (%) (Auto) 0% (0-3) 0% (0-3) Neutrophils # (Auto) 18.8x10^3uL (1.8-7.7) 9.4x10^3uL (1.8-7.7) Lymphocytes # (Auto) 0.5x10^3/uL (1.0-4.8) 0.6x10^3/uL (1.0-4.8) Monocytes # (Auto) 1.2x10^3/uL (0.0-1.1) 1.0x10^3/uL (0.0-1.1) Eosinophils # (Auto) 0.0x10^3/uL (0.0-0.7) 0.1x10^3/uL (0.0-0.7) Basophils # (Auto) 0.1x10^3/uL (0.0-0.2) 0.0x10^3/uL (0.0-0.2) Sodium Level 142mmol/L (136-145) 143mmol/L (136-145) Potassium Level 4.4mmol/L (3.5-5.1) 3.4mmol/L (3.5-5.1) Chloride Level 102mmol/L (98-107) 102mmol/L (98-107) Carbon Dioxide Level 28mmol/L (21-32) 35mmol/L (21-32) Anion Gap 12 (6-14) 6 (6-14) Blood Urea Nitrogen 64mg/dL (7-20) 28mg/dL (7-20) Creatinine 4.3mg/dL (0.6-1.0) 3.0mg/dL (0.6-1.0) Estimated GFR (Cockcroft-Gault) 11.4 17.2 Glucose Level 83mg/dL (70-99) 106mg/dL (70-99) Calcium Level 8.4mg/dL (8.5-10.1) 7.7mg/dL (8.5-10.1) Urine Collection Type Unknown Urine Color Yellow Urine Clarity Clear Urine pH 7.5 Urine Specific [place] 1.010 Urine Protein 30mg/dL (NEG-TRACE) Urine Glucose (UA) Negativemg/dL (NEG) Urine Ketones (Stick) Negativemg/dL (NEG) Urine Blood Large (NEG) Urine Nitrite Negative (NEG) Urine Bilirubin Negative (NEG) Urine Urobilinogen Dipstick 0.2mg/dL (0.2 mg/dL) Urine Leukocyte Esterase Small (NEG) Urine RBC 11-20/HPF (0-2) Urine WBC 11-20/HPF (0-4) Urine Squamous Epithelial Cells Many/LPF Urine Bacteria Many/HPF (0-FEW) Laboratory Tests Test 12/06/16 08:40 12/07/16 05:00 Urine Collection Type Unknown Urine Color Yellow Urine Clarity Clear Urine pH 7.5 Urine Specific [place] 1.010 Urine Protein 30mg/dL (NEG-TRACE) Urine Glucose (UA) Negativemg/dL (NEG) Urine Ketones (Stick) Negativemg/dL (NEG) Urine Blood Large (NEG) Urine Nitrite Negative (NEG) Urine Bilirubin Negative (NEG) Urine Urobilinogen Dipstick 0.2mg/dL (0.2 mg/dL) Urine Leukocyte Esterase Small (NEG) Urine RBC 11-20/HPF (0-2) Urine WBC 11-20/HPF (0-4) Urine Squamous Epithelial Cells Many/LPF Urine Bacteria Many/HPF (0-FEW) White Blood Count 11.0x10^3/uL (4.0-11.0) Red Blood Count 2.68x10^6/uL (3.50-5.40) Hemoglobin 8.5g/dL (12.0-15.5) Hematocrit 25.1% (36.0-47.0) Mean Corpuscular Volume 94fL (79-100) Mean Corpuscular Hemoglobin 32pg (25-35) Mean Corpuscular Hemoglobin Concent 34g/dL (31-37) Red Cell Distribution Width 16.7% (11.5-14.5) Platelet Count 54x10^3/uL (140-400) Neutrophils (%) (Auto) 85% (31-73) Lymphocytes (%) (Auto) 5% (24-48) Monocytes (%) (Auto) 9% (0-9) Eosinophils (%) (Auto) 1% (0-3) Basophils (%) (Auto) 0% (0-3) Neutrophils # (Auto) 9.4x10^3uL (1.8-7.7) Lymphocytes # (Auto) 0.6x10^3/uL (1.0-4.8) Monocytes # (Auto) 1.0x10^3/uL (0.0-1.1) Eosinophils # (Auto) 0.1x10^3/uL (0.0-0.7) Basophils # (Auto) 0.0x10^3/uL (0.0-0.2) Sodium Level 143mmol/L (136-145) Potassium Level 3.4mmol/L (3.5-5.1) Chloride Level 102mmol/L (98-107) Carbon Dioxide Level 35mmol/L (21-32) Anion Gap 6 (6-14) Blood Urea Nitrogen 28mg/dL (7-20) Creatinine 3.0mg/dL (0.6-1.0) Estimated GFR (Cockcroft-Gault) 17.2 Glucose Level 106mg/dL (70-99) Calcium Level 7.7mg/dL (8.5-10.1) Problem List Problems Medical Problems: (1) Accelerated hypertension Status: Acute (2) Acute on chronic diastolic congestive heart failure due to valvular disease Status: Acute (3) Bilateral pleural effusion Status: Acute (4) Cardiomyopathy Status: Acute (5) COPD with acute exacerbation Status: Acute (6) End stage renal disease Status: Acute Assessment/Plan GI bleed d/w Dr. Howard, agree with plans for CT Problems: ROBERTO AGUIRRE MD Dec 07, 2016 08:21
[2016-12-07] MEDS: LEVOTHYROXINE 100 MCG TABLET PO SCH (09:35)
[2016-12-07] MEDS: LISINOPRIL 10 MG TABLET PO SCH (09:36)
[2016-12-07] MEDS: LACTOBACILLUS ACIDOPH & BULGAR 1 TABLET. PO SCH ×3 (09:37→16:51)
[2016-12-07] MEDS: ISOSORBIDE MONONITRATE ER 30 MG TAB.ER.24H PO SCH (09:37)
[2016-12-07] MEDS: HYDROCODONE/APAP 7.5/325MG TABLET. PO PRN ×3 (09:37→20:40)
[2016-12-07] MEDS: ASPIRIN ENTERIC COATED 81 MG TABLET.DR. PO SCH (09:38)
[2016-12-07] MEDS: CARVEDILOL 12.5 MG TABLET PO SCH ×2 (09:38→16:52)
[2016-12-07] MEDS: ACYCLOVIR 200 MG CAPSULE PO SCH ×2 (09:38→20:39)
[2016-12-07] MEDS: FUROSEMIDE 80 MG TABLET PO SCH ×3 (09:38→16:52)
[2016-12-07] MEDS: ONDANSETRON PF 4 MG/2 ML VIAL. IV PRN (09:39)
--- NOTE | 2016-12-07 09:42 | PDOC ---
PULMONARY PROGRESS NOTES Subjective NO INCREASE SOA Vitals Vital Signs Date Time Temp Pulse Resp B/P Pulse Ox O2 Delivery O2 Flow Rate FiO2 12/07/16 07:25 Nasal Cannula 4.0 12/07/16 05:22 98 12/07/16 03:00 98.1 71 18 138/51 98.1 ROS: No Nausea, No Chest Pain, No Abdominal Pain, No Increase Cough General: Alert, No acute distress Lungs: Crackles Cardiovascular: S1, S2 Abdomen: Soft Neuro Exam: Alert Extremities: No Edema Skin: Warm Labs Laboratory Tests Test 12/06/16 05:35 12/06/16 08:40 12/07/16 05:00 White Blood Count 20.6x10^3/uL (4.0-11.0) 11.0x10^3/uL (4.0-11.0) Red Blood Count 2.98x10^6/uL (3.50-5.40) 2.68x10^6/uL (3.50-5.40) Hemoglobin 9.2g/dL (12.0-15.5) 8.5g/dL (12.0-15.5) Hematocrit 27.8% (36.0-47.0) 25.1% (36.0-47.0) Mean Corpuscular Volume 93fL (79-100) 94fL (79-100) Mean Corpuscular Hemoglobin 31pg (25-35) 32pg (25-35) Mean Corpuscular Hemoglobin Concent 33g/dL (31-37) 34g/dL (31-37) Red Cell Distribution Width 16.5% (11.5-14.5) 16.7% (11.5-14.5) Platelet Count 72x10^3/uL (140-400) 54x10^3/uL (140-400) Neutrophils (%) (Auto) 91% (31-73) 85% (31-73) Lymphocytes (%) (Auto) 3% (24-48) 5% (24-48) Monocytes (%) (Auto) 6% (0-9) 9% (0-9) Eosinophils (%) (Auto) 0% (0-3) 1% (0-3) Basophils (%) (Auto) 0% (0-3) 0% (0-3) Neutrophils # (Auto) 18.8x10^3uL (1.8-7.7) 9.4x10^3uL (1.8-7.7) Lymphocytes # (Auto) 0.5x10^3/uL (1.0-4.8) 0.6x10^3/uL (1.0-4.8) Monocytes # (Auto) 1.2x10^3/uL (0.0-1.1) 1.0x10^3/uL (0.0-1.1) Eosinophils # (Auto) 0.0x10^3/uL (0.0-0.7) 0.1x10^3/uL (0.0-0.7) Basophils # (Auto) 0.1x10^3/uL (0.0-0.2) 0.0x10^3/uL (0.0-0.2) Sodium Level 142mmol/L (136-145) 143mmol/L (136-145) Potassium Level 4.4mmol/L (3.5-5.1) 3.4mmol/L (3.5-5.1) Chloride Level 102mmol/L (98-107) 102mmol/L (98-107) Carbon Dioxide Level 28mmol/L (21-32) 35mmol/L (21-32) Anion Gap 12 (6-14) 6 (6-14) Blood Urea Nitrogen 64mg/dL (7-20) 28mg/dL (7-20) Creatinine 4.3mg/dL (0.6-1.0) 3.0mg/dL (0.6-1.0) Estimated GFR (Cockcroft-Gault) 11.4 17.2 Glucose Level 83mg/dL (70-99) 106mg/dL (70-99) Calcium Level 8.4mg/dL (8.5-10.1) 7.7mg/dL (8.5-10.1) Urine Collection Type Unknown Urine Color Yellow Urine Clarity Clear Urine pH 7.5 Urine Specific [place] 1.010 Urine Protein 30mg/dL (NEG-TRACE) Urine Glucose (UA) Negativemg/dL (NEG) Urine Ketones (Stick) Negativemg/dL (NEG) Urine Blood Large (NEG) Urine Nitrite Negative (NEG) Urine Bilirubin Negative (NEG) Urine Urobilinogen Dipstick 0.2mg/dL (0.2 mg/dL) Urine Leukocyte Esterase Small (NEG) Urine RBC 11-20/HPF (0-2) Urine WBC 11-20/HPF (0-4) Urine Squamous Epithelial Cells Many/LPF Urine Bacteria Many/HPF (0-FEW) Laboratory Tests Test 12/07/16 05:00 White Blood Count 11.0x10^3/uL (4.0-11.0) Red Blood Count 2.68x10^6/uL (3.50-5.40) Hemoglobin 8.5g/dL (12.0-15.5) Hematocrit 25.1% (36.0-47.0) Mean Corpuscular Volume 94fL (79-100) Mean Corpuscular Hemoglobin 32pg (25-35) Mean Corpuscular Hemoglobin Concent 34g/dL (31-37) Red Cell Distribution Width 16.7% (11.5-14.5) Platelet Count 54x10^3/uL (140-400) Neutrophils (%) (Auto) 85% (31-73) Lymphocytes (%) (Auto) 5% (24-48) Monocytes (%) (Auto) 9% (0-9) Eosinophils (%) (Auto) 1% (0-3) Basophils (%) (Auto) 0% (0-3) Neutrophils # (Auto) 9.4x10^3uL (1.8-7.7) Lymphocytes # (Auto) 0.6x10^3/uL (1.0-4.8) Monocytes # (Auto) 1.0x10^3/uL (0.0-1.1) Eosinophils # (Auto) 0.1x10^3/uL (0.0-0.7) Basophils # (Auto) 0.0x10^3/uL (0.0-0.2) Sodium Level 143mmol/L (136-145) Potassium Level 3.4mmol/L (3.5-5.1) Chloride Level 102mmol/L (98-107) Carbon Dioxide Level 35mmol/L (21-32) Anion Gap 6 (6-14) Blood Urea Nitrogen 28mg/dL (7-20) Creatinine 3.0mg/dL (0.6-1.0) Estimated GFR (Cockcroft-Gault) 17.2 Glucose Level 106mg/dL (70-99) Calcium Level 7.7mg/dL (8.5-10.1) Medications Active Scripts Medications Dose Route/Sig Days Date Category Levaquin (Levofloxacin) 500 Mg Tablet 500 Mg PO Q48H 09/30/16 Rx Lisinopril 10 Mg Tablet 10 Mg PO DAILY 30 07/06/16 Rx Hydrocodone-Apap 7.5-325 (Hydrocodone Bit/Acetaminophen) 1 Each Tablet 1 Tab PO PRN Q4HRS PRN 14 07/06/16 Rx Flector (Diclofenac Epolamine) 1 Each Patch.td12 1 Patch TD BID 30 07/06/16 Rx Aranesp Syringe (Darbepoetin Apolinar In Polysorbat) 60 Mcg/0.3 Ml Disp.syrin 60 Mcg SQ WEEKLYHS 30 07/06/16 Rx Furosemide 80 Mg Tablet 80 Mg PO TID 30 07/06/16 Rx Lorazepam 1 Mg Tablet 1 Mg PO PRN Q6HRS PRN 07/02/16 Reported Renvela (Sevelamer Carbonate) 800 Mg Tablet 2 Tab PO TID 07/02/16 Reported Loperamide (Loperamide Hcl) 2 Mg Capsule 2 Mg PO PRN Q15MIN PRN 30 06/09/16 Rx Isosorbide Mononitrate Er (Isosorbide Mononitrate) 30 Mg Tab.er.24h 30 Mg PO DAILY 30 06/09/16 Rx Maren-Bid Caplet (Acidoph/L.bulg/Bif.b/S.thermop) 1 Each Tablet 1 Tab PO TIDWMEALS 30 06/09/16 Rx Lidocaine-Prilocaine Cream (Lidocaine/Prilocaine) 30 Gm Cream..g. 1 Oniel TP UD 06/04/16 Reported Dicyclomine Hcl 20 Mg Tablet 1 Tab PO TID PRN 06/04/16 Reported Clonidine Hcl 0.3 Mg Tablet 0.3 Mg PO TID 06/04/16 Reported Amlodipine Besylate 10 Mg Tablet 10 Mg PO HS 06/04/16 Reported Renal Caps Softgel (Folic Acid/Vitamin B Comp W-C) 1 Mg Capsule 1 Cap PO DAILY 01/16/16 Reported Advair 250-50 Diskus (Fluticasone/Salmeterol) 1 Each Disk.w.dev 2 Puff IH DAILY 01/16/16 Reported Proair Hfa Inhaler (Albuterol Sulfate) 8.5 Gm Hfa.aer.ad 2 Puff INH PRN Q6HRS PRN 01/16/16 Reported Acyclovir 200 Mg Capsule 200 Mg PO BID 01/16/16 Reported Paroxetine Hcl 20 Mg Tablet 20 Mg PO QHS 05/09/15 Reported Nighttime Sleep Aid (Diphenhydramine Hcl) 50 Mg Capsule 50 Mg PO QHS 05/09/15 Reported Ondansetron Hcl 8 Mg Tablet 8 Mg PO BID PRN 05/09/14 Reported Methocarbamol 750 Mg Tablet 1,500 Mg PO QID PRN 05/09/14 Reported Tylenol Extra Strength (Acetaminophen) 500 Mg Tablet 500 Mg PO Q6HRS PRN 05/09/14 Reported Claritin (Loratadine) 10 Mg Capsule 10 Mg PO HS 05/09/14 Reported Comments cxr reviewed. There is less left pleural fluid than previously consistent with the interval thoracentesis. Impression . 1. ACUTE/CHRONIC RESP FAILURE MULTIFACTORIAL 2. ACUTE GI BLEED S/P EMBOLIZATION 3. A/C DIASTOLIC/SYST HEART FAILURE 4. Chronic respiratory failure, on home oxygen. 5. History of multiple myeloma, currently on chemo. 6. End-stage renal disease, on hemodialysis. 7. PLEURAL EFFUSION S/P THORACENTESIS Plan . RESP STATUS IS COMPENSATED FOLLOW GI INPUT FOLLOW CYTOLOGY ON PLEURAL FLUIID CONTINUE THE SAME DIET PER GI EDIN ALLAN MD Dec 07, 2016 09:42
[2016-12-07] MEDS: FOLIC/VIT B COMP W-C (RENAL) TABLET. PO SCH (09:46)
[2016-12-07] MEDS: HYDRALAZINE 50 MG TABLET PO SCH ×3 (09:47→20:52)
[2016-12-07 11:00] VITALS: BP 111/58
--- NOTE | 2016-12-07 11:48 | PDOC ---
Renal-Progress Notes Subjective Notes Notes FEELING MUCH BETTER History of Present Illness Hx of present illness STABLE/IMPROVED Vitals Vitals Vital Signs Date Time Temp Pulse Resp B/P Pulse Ox O2 Delivery O2 Flow Rate FiO2 12/07/16 09:47 71 138/51 12/07/16 09:37 16 Room Air 12/07/16 08:00 2.5 12/07/16 05:22 98 12/07/16 03:00 98.1 98.1 Weight Weight [ ] I.O. Intake and Output Intake and Output 12/07/16 07:00 Intake Total 1620 ml Output Total 75 ml Balance 1545 ml Intake Oral 1620 ml Output Urine Total 75 ml # Voids 4 # Bowel Movements 1 Labs Labs Laboratory Tests Test 12/07/16 05:00 White Blood Count 11.0x10^3/uL (4.0-11.0) Red Blood Count 2.68x10^6/uL (3.50-5.40) Hemoglobin 8.5g/dL (12.0-15.5) Hematocrit 25.1% (36.0-47.0) Mean Corpuscular Volume 94fL (79-100) Mean Corpuscular Hemoglobin 32pg (25-35) Mean Corpuscular Hemoglobin Concent 34g/dL (31-37) Red Cell Distribution Width 16.7% (11.5-14.5) Platelet Count 54x10^3/uL (140-400) Neutrophils (%) (Auto) 85% (31-73) Lymphocytes (%) (Auto) 5% (24-48) Monocytes (%) (Auto) 9% (0-9) Eosinophils (%) (Auto) 1% (0-3) Basophils (%) (Auto) 0% (0-3) Neutrophils # (Auto) 9.4x10^3uL (1.8-7.7) Lymphocytes # (Auto) 0.6x10^3/uL (1.0-4.8) Monocytes # (Auto) 1.0x10^3/uL (0.0-1.1) Eosinophils # (Auto) 0.1x10^3/uL (0.0-0.7) Basophils # (Auto) 0.0x10^3/uL (0.0-0.2) Sodium Level 143mmol/L (136-145) Potassium Level 3.4mmol/L (3.5-5.1) Chloride Level 102mmol/L (98-107) Carbon Dioxide Level 35mmol/L (21-32) Anion Gap 6 (6-14) Blood Urea Nitrogen 28mg/dL (7-20) Creatinine 3.0mg/dL (0.6-1.0) Estimated GFR (Cockcroft-Gault) 17.2 Glucose Level 106mg/dL (70-99) Calcium Level 7.7mg/dL (8.5-10.1) Micro Micro Microbiology 12/05/16 Blood Culture - Preliminary, Resulted NO GROWTH AFTER 1 DAY 11/29/16 Gram Stain - Final, Complete Review of Systems Constitutional: yes: alert, oriented, weakness Eyes: Yes: no symptom reported Pulmonary: Yes dyspnea Cardiovascular: Yes no symptom reported Gastrointestional: Yes: no symptom reported Genitourinary: Yes: no symptom reported Musculoskeletal: Yes: no symptom reported Physical Exam General Appearance: no apparent distress Skin: warm Respiratory: decreased breath sounds, wheezing Heart: S1S2, RRR Abdomen: soft, bowel sounds present Neurology: alert, oriented Musculoskeletal: Other Assessment Assessment IMP AECOPD ANEMIA FLUID OVERLOAD ESRD PLAN HD TOMORROW GI CHANTAL AND TX NATE MAYER MD Dec 07, 2016 11:48
--- NOTE | 2016-12-07 12:43 | PDOC ---
Subjective: Subjective: Dark stool last night. Pain controlled. Wants to eat "real food." Objective: Objective: Per RN - no bleeding today. CTA ordered. Vital Signs: Vital Signs Date Time Temp Pulse Resp B/P Pulse Ox O2 Delivery O2 Flow Rate FiO2 12/07/16 10:45 16 Nasal Cannula 2.0 12/07/16 09:47 71 138/51 12/07/16 05:22 98 12/07/16 03:00 98.1 98.1 Labs: Laboratory Tests Test 12/07/16 05:00 White Blood Count 11.0x10^3/uL Red Blood Count 2.68x10^6/uL Hemoglobin 8.5g/dL Hematocrit 25.1% Mean Corpuscular Volume 94fL Mean Corpuscular Hemoglobin 32pg Mean Corpuscular Hemoglobin Concent 34g/dL Red Cell Distribution Width 16.7% Platelet Count 54x10^3/uL Neutrophils (%) (Auto) 85% Lymphocytes (%) (Auto) 5% Monocytes (%) (Auto) 9% Eosinophils (%) (Auto) 1% Basophils (%) (Auto) 0% Neutrophils # (Auto) 9.4x10^3uL Lymphocytes # (Auto) 0.6x10^3/uL Monocytes # (Auto) 1.0x10^3/uL Eosinophils # (Auto) 0.1x10^3/uL Basophils # (Auto) 0.0x10^3/uL Sodium Level 143mmol/L Potassium Level 3.4mmol/L Chloride Level 102mmol/L Carbon Dioxide Level 35mmol/L Anion Gap 6 Blood Urea Nitrogen 28mg/dL Creatinine 3.0mg/dL Estimated GFR (Cockcroft-Gault) 17.2 Glucose Level 106mg/dL Calcium Level 7.7mg/dL PE: GEN: NAD, up to chair LUNGS: CTAB HEART: RRR ABD: soft, less tender NEURO/PSYCH: A & O 3 A/P: Melena, anemia -Hgb from 10 to 9.2 to 8.5 (previously transfused 7 units) -dark BM last night -on clears, wants more -on PPI drip -note thrombocytopenia as well Gastric ulcer, h/o gastric bypass -s/p cautery/endo-clip/epi inj 12/03 -CTA neg for bleeding; s/p celiac + LGA injections, empiric embolization of LGA branches 12/04 -surgery following -- CTA ordered. Will review w/ Dr. Quintero. AYAH ESPINOSA Dec 07, 2016 12:42
[2016-12-07] MEDS ORDERED: IOHEXOL 350 MG/ML 100ML VIAL. IV ONE (13:00)
--- NOTE | 2016-12-07 14:24 | PDOC ---
PROGRESS NOTES Subjective Subjective c/c - f/u of Multiple myeloma Objective Objective Vital Signs Date Time Temp Pulse Resp B/P Pulse Ox O2 Delivery O2 Flow Rate FiO2 12/07/16 14:17 71 138/51 12/07/16 14:17 16 Nasal Cannula 2.0 12/07/16 05:22 98 12/07/16 03:00 98.1 98.1 Intake and Output 12/07/16 07:00 Intake Total 1620 ml Output Total 75 ml Balance 1545 ml Intake Oral 1620 ml Output Urine Total 75 ml # Voids 4 # Bowel Movements 1 Physical Exam Heart: Normal S1, Normal S2 General: Alert, Oriented X3 Neuro: Normal speech Psych/Mental Status: Mental status NL Assessment Assessment Problems Medical Problems: (1) Accelerated hypertension Status: Acute (2) Acute on chronic diastolic congestive heart failure due to valvular disease Status: Acute (3) Bilateral pleural effusion Status: Acute (4) Cardiomyopathy Status: Acute (5) COPD with acute exacerbation Status: Acute (6) End stage renal disease Status: Acute A/P: 1. Multiple myeloma, currently on chemo with velcade and well controlled.. 2. Dyspnea secondary to acute on chronic congestive heart failure, I do not think it is related to velcade or MM. He myeloma is under very good control. Appreciate cardiology management. . 3. End-stage renal disease, on hemodialysis. 4. Anemia due to GI bleed, monitor Hb - EGD 12/03/16 : s/p gastric bypass gastric ulcer below GE junction S/p cautery/endo-clip/ epi injection with cessation of bleeding. Hb worse at 8.5, monitor. Comment Review of Relevant I have reviewed the following items ernesto (where applicable) has been applied. Labs Laboratory Tests Test 12/06/16 05:35 12/06/16 08:40 12/07/16 05:00 White Blood Count 20.6x10^3/uL (4.0-11.0) 11.0x10^3/uL (4.0-11.0) Red Blood Count 2.98x10^6/uL (3.50-5.40) 2.68x10^6/uL (3.50-5.40) Hemoglobin 9.2g/dL (12.0-15.5) 8.5g/dL (12.0-15.5) Hematocrit 27.8% (36.0-47.0) 25.1% (36.0-47.0) Mean Corpuscular Volume 93fL (79-100) 94fL (79-100) Mean Corpuscular Hemoglobin 31pg (25-35) 32pg (25-35) Mean Corpuscular Hemoglobin Concent 33g/dL (31-37) 34g/dL (31-37) Red Cell Distribution Width 16.5% (11.5-14.5) 16.7% (11.5-14.5) Platelet Count 72x10^3/uL (140-400) 54x10^3/uL (140-400) Neutrophils (%) (Auto) 91% (31-73) 85% (31-73) Lymphocytes (%) (Auto) 3% (24-48) 5% (24-48) Monocytes (%) (Auto) 6% (0-9) 9% (0-9) Eosinophils (%) (Auto) 0% (0-3) 1% (0-3) Basophils (%) (Auto) 0% (0-3) 0% (0-3) Neutrophils # (Auto) 18.8x10^3uL (1.8-7.7) 9.4x10^3uL (1.8-7.7) Lymphocytes # (Auto) 0.5x10^3/uL (1.0-4.8) 0.6x10^3/uL (1.0-4.8) Monocytes # (Auto) 1.2x10^3/uL (0.0-1.1) 1.0x10^3/uL (0.0-1.1) Eosinophils # (Auto) 0.0x10^3/uL (0.0-0.7) 0.1x10^3/uL (0.0-0.7) Basophils # (Auto) 0.1x10^3/uL (0.0-0.2) 0.0x10^3/uL (0.0-0.2) Sodium Level 142mmol/L (136-145) 143mmol/L (136-145) Potassium Level 4.4mmol/L (3.5-5.1) 3.4mmol/L (3.5-5.1) Chloride Level 102mmol/L (98-107) 102mmol/L (98-107) Carbon Dioxide Level 28mmol/L (21-32) 35mmol/L (21-32) Anion Gap 12 (6-14) 6 (6-14) Blood Urea Nitrogen 64mg/dL (7-20) 28mg/dL (7-20) Creatinine 4.3mg/dL (0.6-1.0) 3.0mg/dL (0.6-1.0) Estimated GFR (Cockcroft-Gault) 11.4 17.2 Glucose Level 83mg/dL (70-99) 106mg/dL (70-99) Calcium Level 8.4mg/dL (8.5-10.1) 7.7mg/dL (8.5-10.1) Urine Collection Type Unknown Urine Color Yellow Urine Clarity Clear Urine pH 7.5 Urine Specific Custer 1.010 Urine Protein 30mg/dL (NEG-TRACE) Urine Glucose (UA) Negativemg/dL (NEG) Urine Ketones (Stick) Negativemg/dL (NEG) Urine Blood Large (NEG) Urine Nitrite Negative (NEG) Urine Bilirubin Negative (NEG) Urine Urobilinogen Dipstick 0.2mg/dL (0.2 mg/dL) Urine Leukocyte Esterase Small (NEG) Urine RBC 11-20/HPF (0-2) Urine WBC 11-20/HPF (0-4) Urine Squamous Epithelial Cells Many/LPF Urine Bacteria Many/HPF (0-FEW) Laboratory Tests Test 12/07/16 05:00 White Blood Count 11.0x10^3/uL (4.0-11.0) Red Blood Count 2.68x10^6/uL (3.50-5.40) Hemoglobin 8.5g/dL (12.0-15.5) Hematocrit 25.1% (36.0-47.0) Mean Corpuscular Volume 94fL (79-100) Mean Corpuscular Hemoglobin 32pg (25-35) Mean Corpuscular Hemoglobin Concent 34g/dL (31-37) Red Cell Distribution Width 16.7% (11.5-14.5) Platelet Count 54x10^3/uL (140-400) Neutrophils (%) (Auto) 85% (31-73) Lymphocytes (%) (Auto) 5% (24-48) Monocytes (%) (Auto) 9% (0-9) Eosinophils (%) (Auto) 1% (0-3) Basophils (%) (Auto) 0% (0-3) Neutrophils # (Auto) 9.4x10^3uL (1.8-7.7) Lymphocytes # (Auto) 0.6x10^3/uL (1.0-4.8) Monocytes # (Auto) 1.0x10^3/uL (0.0-1.1) Eosinophils # (Auto) 0.1x10^3/uL (0.0-0.7) Basophils # (Auto) 0.0x10^3/uL (0.0-0.2) Sodium Level 143mmol/L (136-145) Potassium Level 3.4mmol/L (3.5-5.1) Chloride Level 102mmol/L (98-107) Carbon Dioxide Level 35mmol/L (21-32) Anion Gap 6 (6-14) Blood Urea Nitrogen 28mg/dL (7-20) Creatinine 3.0mg/dL (0.6-1.0) Estimated GFR (Cockcroft-Gault) 17.2 Glucose Level 106mg/dL (70-99) Calcium Level 7.7mg/dL (8.5-10.1) Microbiology 12/05/16 Blood Culture - Preliminary, Resulted NO GROWTH AFTER 2 DAYS 11/29/16 Gram Stain - Final, Complete Medications Current Medications Sodium Chloride (Iv Sodium Chloride 0.9% 1000ml Bag) 1,000 ml @ 100 mls/hr Q10H IV Last administered on 11/27/16 19:49; Start 11/27/16 at 19:01; Stop at 05:00; Status DC Albuterol/ Ipratropium (Duoneb) 6 ml 1X ONCE NEB Last administered on 19:10; Start 11/27/16 at 19:30; Stop 11/27/16 at 19:31; Status DC Methylprednisolone Sodium Succinate (Solu-Medrol 125mg Vial) 125 mg 1X ONCE IV Last administered on 11/27/16 19:49; Start 11/27/16 at 19:30; Stop 11/27/16 at 19:31; Status DC Acetaminophen/ Hydrocodone Bitart (Lortab 7.5/325) 1 tab 1X ONCE PO Last administered on 11/27/16 20:29; Start 11/27/16 at 20:15; Stop 11/27/16 at 20:17; Status DC Lisinopril (Prinivil) 10 mg 1X ONCE PO Last administered on 11/27/16 21:09; Start 11/27/16 at 21:15; Stop 11/27/16 at 21:16; Status DC Amlodipine Besylate (Norvasc) 10 mg 1X ONCE PO Last administered on 11/27/16 21:08; Start 11/27/16 at 21:15; Stop 11/27/16 at 21:16; Status DC Clonidine HCl (Catapres) 0.3 mg 1X ONCE PO Last administered on 11/27/16 21:09 ; Start 11/27/16 at 21:15; Stop 11/27/16 at 21:16; Status DC Ondansetron HCl (Zofran) 4 mg PRN Q8HRS PRN IV NAUSEA/VOMITING Last administered on 11/28/16 18:24; Start 11/27/16 at 22:30; Stop 11/28/16 at 22:29; Status DC Fentanyl Citrate (Fentanyl 2ml Vial) 50 mcg PRN Q2HR PRN IV SEVERE PAIN Last administered on 11/28/16 21:31; Start 11/27/16 at 22:30; Stop 11/28/16 at 22:29; Status DC Acetaminophen (Tylenol) 650 mg PRN Q4HRS PRN PO FEVER; Start 11/27/16 at 22:30; Stop 11/28/16 at 22:29; Status DC Albuterol/ Ipratropium (Duoneb) 3 ml RTQID NEB Last administered on 11/29/16 06 :06; Start 11/28/16 at 08:00; Stop 11/29/16 at 07:59; Status DC Methylprednisolone Sodium Succinate (Solu-Medrol 40mg Vial) 60 mg Q6HRS IV Last administered on 12/03/16 00:24; Start 11/28/16 at 00:00; Stop 12/03/16 at 13:20; Status DC Diphenhydramine HCl (Benadryl) 25 mg 1X ONCE IVP Last administered on 23:30; Start 11/27/16 at 23:00; Stop 11/27/16 at 23:01; Status DC Diphenhydramine HCl (Benadryl) 25 mg PRN Q6HRS PRN IVP ITCHING Last administered on 12/02/16 02:37; Start 11/28/16 at 02:00 Albuterol Sulfate (Ventolin Neb Soln) 2.5 mg PRN Q4HRS PRN NEB SHORTNESS OF BREATH Last administered on 12/05/16 18:07; Start 11/28/16 at 05:15 Acetaminophen (Tylenol) 500 mg PRN Q6HRS PRN PO PAIN Last administered on 06:13; Start 11/28/16 at 07:15 Lactobacillus Acidophilus (Bacid, Maren-Bid) 1 tab TIDWMEALS PO Last administered on 12/07/16 12:22; Start 11/28/16 at 08:00 Acyclovir (Zovirax) 200 mg BID PO Last administered on 12/07/16 09:38; Start 11/28/16 at 09:00 Amlodipine Besylate (Norvasc) 10 mg HS PO Last administered on 12/06/16 21:38 ; Start 11/28/16 at 21:00 Clonidine HCl (Catapres) 0.3 mg TID PO Last administered on 11/28/16 20:54; Start 11/28/16 at 09:00; Stop 11/29/16 at 14:02; Status DC Darbepoetin Apolinar (Aranesp) 60 mcg Tu SQ Last administered on 12/05/16 21:26; Start 11/28/16 at 21:00 Diclofenac Epolamine (Flector) 1 patch BID TD ; Start 11/28/16 at 09:00; Stop 11/28/16 at 14:38; Status DC Furosemide (Lasix) 80 mg TID@,,17 PO Last administered on 12/07/16 14:16; Start 11/28/16 at 09:00 Acetaminophen/ Hydrocodone Bitart (Lortab 7.5/325) 1 tab PRN Q4HRS PRN PO SEVERE PAIN Last administered on 12/07/16 14:17; Start 11/28/16 at 07:15 Isosorbide Mononitrate (Imdur) 30 mg DAILY PO Last administered on 12/07/16 09 :37; Start 11/28/16 at 09:00 Lidocaine/ Prilocaine (Emla) 1 oniel PRN QID PRN TP pain; Start 11/28/16 at 07:15 Lisinopril (Prinivil) 10 mg DAILY PO Last administered on 12/07/16 09:36; Start 11/28/16 at 09:00 Loperamide HCl (Imodium) 2 mg PRN Q15MIN PRN PO DIARRHEA; Start 11/28/16 at 07: 15 Lorazepam (Ativan) 1 mg PRN Q6HRS PRN PO VOMITING Last administered on 21:06; Start 11/28/16 at 07:15 Methocarbamol (Robaxin) 1,500 mg PRN QID PRN PO SEVERE PAIN Last administered on 12/07/16 14:20; Start 11/28/16 at 07:15 Paroxetine HCl (Paxil) 20 mg QHS PO Last administered on 12/06/16 21:38; Start 11/28/16 at 21:00 Sevelamer Carbonate (Renvela) 800 mg TIDWMEALS PO Last administered on 17:40; Start 11/28/16 at 08:00 Dicyclomine HCl (Bentyl) 20 mg PRN TID PRN PO Stomach pain Last administered on 11/28/16 09:02; Start 11/28/16 at 07:45 Diphenhydramine HCl (Benadryl) 50 mg QHS PO Last administered on 12/06/16 21: 36; Start 11/28/16 at 21:00 Non-Formulary Medication 2 puff DAILY IH ; Start 11/28/16 at 09:00; Stop 11/28/16 at 09:00; Status DC Folic Acid/ Multivitamins/Vit B12 (Nephro-Sheree) 1 tab DAILY PO Last administered on 12/02/16 10:36; Start 11/28/16 at 09:00 Cetirizine HCl (Zyrtec) 10 mg QHS PO Last administered on 12/06/16 21:36; Start 11/28/16 at 21:00 Non-Formulary Medication 8 mg PRN BID PRN PO NAUSEA/VOMITING; Start 11/28/16 at 07:15; Stop 11/30/16 at 10:18; Status DC Budesonide 0.5 mg 0.5 mg RTBID NEB Last administered on 12/07/16 07:24; Start 11/28/16 at 08:00 Magnesium Sulfate/ Dextrose (Magnesium Sulfate PREMIX 2GM) 50 ml @ 25 mls/hr PRN DAILY PRN IV for Mag < 1.7 on am labs; Start 11/28/16 at 10:45 Hydralazine HCl (Apresoline) 50 mg TID PO ; Start 11/28/16 at 14:00; Stop at 15:49; Status DC Hydralazine HCl (Apresoline) 10 mg PRN Q4HRS PRN IVP ELEVATED BP, SEE COMMENTS Last administered on 12/05/16 00:42; Start 11/28/16 at 12:00 Hydralazine HCl 25 mg 25 mg TID PO Last administered on 11/30/16 14:14; Start 11/28/16 at 21:00; Stop 11/30/16 at 15:13; Status DC Sodium Chloride (Iv Sodium Chloride 0.9% 1000ml Bag) 1,000 ml @ 1,000 mls/hr Q1H PRN IV hypotension; Start 11/29/16 at 08:51; Stop 11/29/16 at 14:50; Status DC Diphenhydramine HCl (Benadryl) 25 mg 1X PRN PRN IV ITCHING; Start 11/29/16 at 09 :00; Stop 11/30/16 at 08:59; Status DC Diphenhydramine HCl (Benadryl) 25 mg 1X PRN PRN IV ITCHING; Start 11/29/16 at 09 :00; Stop 11/30/16 at 08:59; Status DC Info (PHARMACY MONITORING -- do not chart) 1 each PRN DAILY PRN MC SEE COMMENTS ; Start 11/29/16 at 09:00; Stop 12/05/16 at 08:43; Status DC Info (PHARMACY MONITORING -- do not chart) 1 each PRN DAILY PRN MC SEE COMMENTS ; Start 11/29/16 at 09:00; Status UNV Fentanyl Citrate (Fentanyl 2ml Vial) 25 mcg PRN Q5MIN PRN IV MILD PAIN; Start 11/29/16 at 09:30; Stop 11/30/16 at 03:58; Status DC Fentanyl Citrate 50 mcg 50 mcg PRN Q5MIN PRN IV MODERATE PAIN Last administered on 11/29/16 17:38; Start 11/29/16 at 09:30; Stop 11/30/16 at 03:58; Status DC Lactated Ringer's (Iv Lactated Ringers) 1,000 ml @ 0 mls/hr Q0M IV ; Start 11/29 at 09:16; Stop 11/29/16 at 21:15; Status DC Lidocaine HCl 2 ml 1X PRN PRN ID IV START; Start 11/29/16 at 09:30; Stop at 03:58; Status DC Prochlorperazine Edisylate (Compazine) 5 mg PACU PRN PRN IV NAUSEA; Start at 09:30; Stop 11/30/16 at 03:58; Status DC Fentanyl Citrate (Fentanyl 2ml Vial) 50 mcg PRN Q2HR PRN IV PAIN Last administered on 12/01/16 13:31; Start 11/29/16 at 10:30; Stop 12/01/16 at 17:25 ; Status DC Ondansetron HCl (Zofran) 4 mg PRN Q6HRS PRN IV NAUSEA/VOMITING Last administered on 11/29/16 10:59; Start 11/29/16 at 10:30; Stop 11/29/16 at 14:41; Status DC Lidocaine/Sodium Bicarbonate (Buffered Lidocaine 1%) 3 ml 1X ONCE IJ Last administered on 11/29/16 14:32; Start 11/29/16 at 12:45; Stop 11/29/16 at 12:46; Status DC Bupivacaine HCl/ Epinephrine Bitart (Sensorcain-Mpf Epi 0.5%-[id number]) 30 ml STK -MED ONCE .ROUTE Last administered on 11/29/16 16:47; Start 11/29/16 at 13:57; Stop 11/29/16 at 13:58; Status DC Carvedilol (Coreg) 12.5 mg BIDWMEALS PO Last administered on 11/30/16 09:29; Start 11/29/16 at 17:00; Stop 11/30/16 at 15:13; Status DC Clonidine HCl 1 patch 1 patch WEEKLY TD Last administered on 12/06/16 10:51; Start 11/29/16 at 14:30 Propofol (Diprivan) 20 ml @ As Directed STK-MED ONCE IV ; Start 11/29/16 at 14:14 ; Stop 11/29/16 at 14:15; Status DC Fentanyl Citrate (Fentanyl 2ml Vial) 100 mcg STK-MED ONCE .ROUTE ; Start at 14:14; Stop 11/29/16 at 14:15; Status DC Ondansetron HCl (Zofran) 4 mg STK-MED ONCE .ROUTE ; Start 11/29/16 at 14:14; Stop 11/29/16 at 14:15; Status DC Ondansetron HCl (Zofran) 8 mg PRN Q6HRS PRN IV NAUSEA/VOMITING Last administered on 12/05/16 03:28; Start 11/29/16 at 14:45; Stop 12/05/16 at 08:51 ; Status DC Midazolam HCl (Versed) 2 mg STK-MED ONCE .ROUTE ; Start 11/29/16 at 16:44; Stop 11/29/16 at 16:45; Status DC Pantoprazole Sodium (Protonix) 40 mg DAILYAC PO Last administered on 12/02/16 10:37; Start 11/30/16 at 09:30; Stop 12/03/16 at 07:43; Status DC Ondansetron HCl (Zofran Odt) 8 mg PRN BID PRN PO NAUSEA/VOMITING Last administered on 12/06/16 21:36; Start 11/30/16 at 10:30 Carvedilol (Coreg) 25 mg BIDWMEALS PO Last administered on 12/07/16 09:38; Start 11/30/16 at 17:00 Hydralazine HCl (Apresoline) 50 mg TID PO Last administered on 12/07/16 14:17 ; Start 11/30/16 at 15:30 Aspirin (Ecotrin) 81 mg [id number] PO Last administered on 12/07/16 09:38; Start 11/30/16 at 16:00 Regadenoson (Lexiscan) 0.4 mg 1X ONCE IV Last administered on 12/01/16 09:28 ; Start 12/01/16 at 08:15; Stop 12/01/16 at 08:16; Status DC Levothyroxine Sodium 100 mcg 100 mcg DAILY07 PO Last administered on 12/07/16 09:35; Start 12/01/16 at 14:00 Sodium Chloride 1,000 ml @ 1,000 mls/hr Q1H PRN IV hypotension; Start 12/01/16 at 15:26; Stop 12/01/16 at 21:00; Status DC Sodium Chloride (Iv Sodium Chloride 0.9% 1000ml Bag) 1,000 ml @ 400 mls/hr Q2H30M PRN IV PATENCY; Start 12/01/16 at 15:26; Stop 12/01/16 at 21:00; Status DC Info (PHARMACY MONITORING -- do not chart) 1 each PRN DAILY PRN MC SEE COMMENTS ; Start 12/01/16 at 15:30; Status UNV Info (PHARMACY MONITORING -- do not chart) 1 each PRN DAILY PRN MC SEE COMMENTS ; Start 12/01/16 at 15:30; Status UNV Fentanyl Citrate (Fentanyl 2ml Vial) 50 mcg PRN Q4HRS PRN IV PAIN Last administered on 12/02/16 03:21; Start 12/01/16 at 17:30 Montelukast Sodium (Singulair) 10 mg QHS PO Last administered on 12/06/16 21: 36; Start 12/02/16 at 21:00 Pantoprazole Sodium 40 mg 40 mg DAILYAC IVP ; Start 12/03/16 at 08:00; Stop 10/07 at 08:00; Status DC Pantoprazole Sodium 80 mg/ Sodium Chloride 100 ml @ 10 mls/hr Q10H IV Last administered on 12/07/16 04:54; Start 12/03/16 at 08:00 Propofol (Diprivan) 20 ml @ As Directed STK-MED ONCE IV ; Start 12/03/16 at 09: 23; Stop 12/03/16 at 09:24; Status DC Lidocaine HCl (Lidocaine Pf 2% Vial) 5 ml STK-MED ONCE .ROUTE ; Start 12/03/16 at 09:24; Stop 12/03/16 at 09:25; Status DC Ephedrine Sulfate 50 mg STK-MED ONCE IV ; Start 12/03/16 at 09:24; Stop at 09:25; Status DC Morphine Sulfate 2 mg 2 mg PRN Q2HR PRN IV PAIN Last administered on 12/07/16 04:52; Start 12/03/16 at 10:30 Sodium Chloride 1,000 ml @ 1,000 mls/hr Q1H PRN IV hypotension; Start 12/03/16 at 17:19; Stop 12/03/16 at 23:18; Status DC Sodium Chloride (Iv Sodium Chloride 0.9% 1000ml Bag) 1,000 ml @ 400 mls/hr Q2H30M PRN IV PATENCY; Start 12/03/16 at 17:19; Stop 12/04/16 at 05:18; Status DC Info (PHARMACY MONITORING -- do not chart) 1 each PRN DAILY PRN MC SEE COMMENTS ; Start 12/03/16 at 17:30; Status UNV Info 1 each 1 each PRN DAILY PRN MC SEE COMMENTS; Start 12/03/16 at 17:30; Status UNV Amino Acids/ Glycerin/ Electrolytes (Procalamine) 1,000 ml @ 80 mls/hr [id number] IV Last administered on 12/03/16 21:05; Start 12/03/16 at 19:45; Stop at 13:05; Status DC Prochlorperazine (Compazine) 25 mg PRN Q12HR PRN [place] NAUSEA/VOMITING; Start 10/07 at 22:00 Lidocaine HCl (Xylocaine-Mpf 1% Vial) 2 ml STK-MED ONCE .ROUTE ; Start 12/04/16 at 14:48; Stop 12/04/16 at 14:49; Status DC Iohexol (Omnipaque 350 Mg/ml) 90 ml 1X ONCE IV Last administered on 12/04/16 16:17; Start 12/04/16 at 16:00; Stop 12/04/16 at 16:01; Status DC Info (Do NOT chart on this entry -- for MONITORING) 1 each PRN DAILY PRN MC SEE COMMENTS; Start 12/04/16 at 16:00; Stop 12/06/16 at 15:59; Status DC Gelatin (Gelfoam Size 12-7mm) 1 each STK-MED ONCE .ROUTE ; Start 12/04/16 at 17 :09; Stop 12/04/16 at 17:10; Status DC Midazolam HCl (Versed) 2 mg STK-MED ONCE .ROUTE ; Start 12/04/16 at 17:10; Stop 12/04/16 at 17:11; Status DC Heparin Sodium/ Sodium Chloride 1,000 unit 1X ONCE IART Last administered on 20:00; Start 12/04/16 at 17:15; Stop 12/04/16 at 17:16; Status DC Lidocaine/Sodium Bicarbonate (Buffered Lidocaine 1%) 20 ml 1X ONCE IJ Last administered on 12/04/16 20:00; Start 12/04/16 at 17:15; Stop 12/04/16 at 17:16 ; Status DC Midazolam HCl (Versed) 2 mg 1X ONCE IV Last administered on 12/04/16 20:02; Start 12/04/16 at 17:15; Stop 12/04/16 at 17:16; Status DC Fentanyl Citrate (Fentanyl 2ml Vial) 100 mcg 1X ONCE IV Last administered on 20:02; Start 12/04/16 at 17:15; Stop 12/04/16 at 17:16; Status DC Iohexol (Omnipaque 300 Mg/ml) 100 ml 1X ONCE IART Last administered on 20:03; Start 12/04/16 at 17:15; Stop 12/04/16 at 17:16; Status DC Info 1 each 1 each PRN DAILY PRN MC SEE COMMENTS; Start 12/04/16 at 17:15; Stop 12/06/16 at 17:14; Status Cancel Heparin Sodium/ Sodium Chloride 1,500 ml @ As Directed STK-MED ONCE .ROUTE ; Start 12/04/16 at 17:13; Stop 12/04/16 at 17:14; Status DC Diphenhydramine HCl (Benadryl) 25 mg 1X ONCE IVP Last administered on 20:01; Start 12/04/16 at 18:15; Stop 12/04/16 at 18:16; Status DC Info (PHARMACY MONITORING -- do not chart) 1 each PRN DAILY PRN MC SEE COMMENTS ; Start 12/04/16 at 21:45 Ondansetron HCl (Zofran) 8 mg PRN Q4HRS PRN IV NAUSEA/VOMITING Last administered on 12/07/16 09:39; Start 12/05/16 at 09:00 Alteplase, Recombinant (Cathflo) 2 mg 1X ONCE INT CAT Last administered on 03:14; Start 12/07/16 at 03:15; Stop 12/07/16 at 03:16; Status DC Alteplase, Recombinant (Cathflo) 2 mg 1X ONCE INT CAT ; Start 12/07/16 at 04:30 ; Stop 12/07/16 at 04:31; Status DC Phenyleph/Shark Oil/Min Oil/Petrol (Preparation H) 1 oniel BID PRN RC RECTAL PAIN Last administered on 12/07/16 09:35; Start 12/07/16 at 08:15 Iohexol (Omnipaque 350 Mg/ml) 90 ml 1X ONCE IV ; Start 12/07/16 at 13:00; Stop 12/07/16 at 13:11; Status DC Active Scripts Active Levaquin (Levofloxacin) 500 Mg Tablet 500 Mg PO Q48H Lisinopril 10 Mg Tablet 10 Mg PO DAILY 30 Days Hydrocodone-Apap 7.5-325 (Hydrocodone Bit/Acetaminophen) 1 Each Tablet 1 Tab PO PRN Q4HRS PRN 14 Days Flector (Diclofenac Epolamine) 1 Each Patch.td12 1 Patch TD BID 30 Days Aranesp Syringe (Darbepoetin Apolinar In Polysorbat) 60 Mcg/0.3 Ml Disp.syrin 60 Mcg SQ WEEKLYHS 30 Days Furosemide 80 Mg Tablet 80 Mg PO TID 30 Days Loperamide (Loperamide Hcl) 2 Mg Capsule 2 Mg PO PRN Q15MIN PRN 30 Days Isosorbide Mononitrate Er (Isosorbide Mononitrate) 30 Mg Tab.er.24h 30 Mg PO DAILY 30 Days Maren-Bid Caplet (Acidoph/L.bulg/Bif.b/S.thermop) 1 Each Tablet 1 Tab PO TIDWMEALS 30 Days Reported Lorazepam 1 Mg Tablet 1 Mg PO PRN Q6HRS PRN Renvela (Sevelamer Carbonate) 800 Mg Tablet 2 Tab PO TID Lidocaine-Prilocaine Cream (Lidocaine/Prilocaine) 30 Gm Cream..g. 1 Oniel TP UD Dicyclomine Hcl 20 Mg Tablet 1 Tab PO TID PRN Clonidine Hcl 0.3 Mg Tablet 0.3 Mg PO TID Amlodipine Besylate 10 Mg Tablet 10 Mg PO HS Renal Caps Softgel (Folic Acid/Vitamin B Comp W-C) 1 Mg Capsule 1 Cap PO DAILY Advair 250-50 Diskus (Fluticasone/Salmeterol) 1 Each Disk.w.dev 2 Puff IH DAILY Proair Hfa Inhaler (Albuterol Sulfate) 8.5 Gm Hfa.aer.ad 2 Puff INH PRN Q6HRS PRN Acyclovir 200 Mg Capsule 200 Mg PO BID Paroxetine Hcl 20 Mg Tablet 20 Mg PO QHS Nighttime Sleep Aid (Diphenhydramine Hcl) 50 Mg Capsule 50 Mg PO QHS Ondansetron Hcl 8 Mg Tablet 8 Mg PO BID PRN Methocarbamol 750 Mg Tablet 1,500 Mg PO QID PRN Tylenol Extra Strength (Acetaminophen) 500 Mg Tablet 500 Mg PO Q6HRS PRN Claritin (Loratadine) 10 Mg Capsule 10 Mg PO HS Vitals/I & O Vital Sign - Last 24 Hours 12/06/16 12/06/16 12/06/16 12/06/16 15:00 16:28 16:29 16:30 Temp 97.9 97.9 Pulse 80 80 80 Resp 18 B/P 125/62 125/62 125/62 Pulse Ox 97 O2 Delivery Nasal Cannula Nasal Cannula O2 Flow Rate 2.0 2.5 12/06/16 12/06/16 12/06/16 12/06/16 19:00 21:03 21:35 21:37 Temp 98.4 98.4 Pulse 75 75 Resp 18 B/P 168/65 168/65 Pulse Ox 98 98 98 O2 Delivery Nasal Cannula Nasal Cannula Nasal Cannula O2 Flow Rate 2.0 4.0 4.0 12/06/16 12/06/16 12/07/16 12/07/16 21:38 23:00 03:00 04:52 Temp 99.0 98.1 99.0 98.1 Pulse 75 79 71 Resp 18 18 B/P 168/65 152/64 138/51 Pulse Ox 98 98 98 O2 Delivery Nasal Cannula Nasal Cannula Nasal Cannula O2 Flow Rate 2.0 2.0 2.0 12/07/16 12/07/16 12/07/16 12/07/16 05:22 07:25 08:00 09:36 Pulse 71 B/P 138/51 Pulse Ox 98 O2 Delivery Nasal Cannula Nasal Cannula Nasal Cannula O2 Flow Rate 2.0 4.0 2.5 12/07/16 12/07/16 12/07/16 12/07/16 09:37 09:37 09:38 09:47 Pulse 71 71 71 Resp 16 B/P 138/51 138/51 138/51 O2 Delivery Room Air 12/07/16 12/07/16 12/07/16 10:45 14:17 14:17 Pulse 71 Resp 16 16 B/P 138/51 O2 Delivery Nasal Cannula Nasal Cannula O2 Flow Rate 2.0 2.0 Intake and Output 12/06/16 12/06/16 12/07/16 15:00 23:00 07:00 Intake Total 240 ml 1020 ml 360 ml Output Total 75 ml Balance 165 ml 1020 ml 360 ml JONATHAN KIRK MD Dec 07, 2016 14:24
[2016-12-07 15:00] VITALS: BP 113/48
--- NOTE | 2016-12-07 15:48 | RAD ---
CT of the abdomen and pelvis with and without contrast, 12/07/2016: History: GI tract bleeding Multidetector CT imaging was performed prior to and following an IV bolus injection of iodinated contrast material. The postcontrast scans were obtained in arterial and portal venous phases. Comparison is made to the exam from 12/04/2016. There is a moderate volume of left-sided pleural fluid which appears to have increased. There is worsening atelectasis in the left lower lobe. There is a small amount of right-sided pleural fluid with moderate underlying atelectasis posteriorly in the right lower lobe. Again noted is generalized anasarca. No free air seen in the abdomen. On the precontrast scans there is material of increased density within predominantly large bowel. There was a lesser degree of high density material in the bowel on the previous study. This finding suggests there has probably been interval bleeding during or after one of the patient's interval contrast studies. The abdominal aorta is of normal caliber with scattered atherosclerotic plaques. The celiac, superior mesenteric and renal arteries are widely patent. There is radiopaque material in multiple bowel loops compatible with contrast material from previous studies. No active contrast extravasation into the GI tract is currently delineated. There are numerous surgical clips and sutures in the abdomen. There are new peripheral areas of decreased enhancement in the spleen compatible splenic infarcts. On today's arterial phase images the hepatic enhancement is heterogeneous, however, on the delayed images there is no evidence of hepatic infarction. IMPRESSION: 1. No active GI tract bleeding is identified. 2. Increasing contrast collections within the colon suggests that there has been some interval GI tract bleeding related to the patient's previous CTA and/or angiographic exams. 3. 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 4. Increasing moderate-sized left pleural effusion with left lower lobe atelectasis. 5. Anasarca PQRS Compliance Statement: One or more of the following individualized dose reduction techniques were utilized for this examination: 1. Automated exposure control 2. Adjustment of the mA and/or kV according to patient size 3. Use of iterative reconstruction technique
[2016-12-07 19:00] VITALS: BP 178/95
--- NOTE | 2016-12-07 20:35 | PATHOLOGY ---
PATHOLOGY REPORT * * * * * * * * FINAL DIAGNOSIS: Skin, right flank: - Telangiectatic lymphovascular spaces with dermal edema and fibrosis. There is no evidence of malignancy. (see comment) COMMENT: A number of clinic notes were forwarded by Dr. Kevin with this biopsy. The concern for calciphylaxis is noted. A number of special stains, both with appropriate positive controls, were performed and yielded the following results: Alcian blue: negative CD34: scattered positive staining The biopsy does include only a small amount of underlying subcutaneous tissue. The material available for review does show telangiectatic lymphovascular spaces with dermal edema and mild fibrosis. With the history of "skin thickening," a number of possibilities exist within the histologic differential diagnosis including lymphedema versus morphea versus scleromyxedema versus nephrogenic systemic fibrosis. There is no evidence within the current material of calciphylaxis. To evaluate either calciphylaxis or nephrogenic systemic fibrosis, a deep biopsy down to fascia is preferred. With the negative results on Alcian blue, scleromyxedema is not favored. There is focal positive staining on CD34 so that nephrogenic systemic fibrosis is still within the differential diagnosis. Please correlate clinically. (SAS:mgr; d/t: 12/07/16) Special Stains: CD34, Alcian blue REPORT ELECTRONICALLY SIGNED BY: Heaven Renner M.D., Dermatopathologist DATE/TIME: 12/07/2016 20:34 * * * * * * * * GROSS PATHOLOGY: Received in formalin labeled "Solange Jameson and right flank incisional biopsy," is a 1.8 x 0.5 x 0.5 cm ellipse of skin displaying a medley, wrinkled, and raised epidermal surface. The margins are inked black. The specimen is sectioned into 7 pieces and entirely submitted in cassettes A1 through A2, with the tips placed in cassette A2. (TTL; 11/30/2016) INITIAL CPT CODE(S): A; 19512, 05352, 70743 Professional services performed by [facility], [address] [place] [id number]. Technical services performed by [facility] at [address] [place] [id number]. SPECIMEN(S) RECEIVED: A.Right flank incisional biopsy CLINICAL HISTORY: Right flank skin thickening PATIENT: SOLANGE JAMESON /AGE: 5 1975 (Age: 41) PATIENT #: [id number] ALT CASE #: SPECIMEN COLLECTION DATE: 11/29/2016 SPECIMEN RECEIVED DATE: 11/30/2016 [facility] - [id number] [address] - PHONE: [phone] * * * END OF REPORT * * *
[2016-12-07] MEDS: DIPHENHYDRAMINE HCL 25 MG CAPSULE PO SCH (20:39)
[2016-12-07] MEDS: PAROXETINE 20 MG TABLET. PO SCH (20:39)
[2016-12-07] MEDS: MONTELUKAST SODIUM 10 MG TABLET. PO SCH (20:39)
[2016-12-07] MEDS: CETIRIZINE HCL 10 MG TABLET PO SCH (20:40)
[2016-12-07] MEDS: AMLODIPINE BESYLATE 10 MG TABLET PO SCH (20:51)
[2016-12-07] MEDS: ONDANSETRON ODT 4 MG TAB.RAPDIS PO PRN (20:51)
[2016-12-07 23:00] VITALS: BP 112/51
[2016-12-08] MEDS: PANTOPRAZOLE SODIUM IV 80 MG in IV NORMAL SALINE 100ML 100 ML IV SCH ×2 (01:12→15:48)
[2016-12-08 03:00] VITALS: BP 135/54
[2016-12-08] MEDS: HYDROCODONE/APAP 7.5/325MG TABLET. PO PRN ×3 (04:32→21:00)
[2016-12-08] MEDS: FENTANYL PF 100 MCG/2 ML VIAL. IV PRN (04:42)
[2016-12-08] MEDS: ALBUTEROL SULFATE 2.5 MG/3 ML NEBU. NEB PRN (05:20)
[2016-12-08 05:25] LABS: CALCIUM 7.5 mg/dL (8.5-10.1); GFR 12.3; POTASSIUM 3.6 mmol/L (3.5-5.1)
[2016-12-08] MEDS: LEVOTHYROXINE 100 MCG TABLET PO SCH (06:03)
[2016-12-08] MEDS: MORPHINE SULFATE 2 MG/ML DISP.SYRIN. IV PRN ×2 (06:09→15:03)
[2016-12-08] MEDS: BUDESONIDE 0.5 MG/2 ML NEBU NEB SCH ×2 (07:23→19:52)
[2016-12-08] MEDS: CARVEDILOL 12.5 MG TABLET PO SCH ×2 (08:00→18:10)
[2016-12-08] MEDS: SEVELAMER CARBONATE 800 MG TABLET. PO SCH ×3 (08:00→18:10)
[2016-12-08] MEDS: LACTOBACILLUS ACIDOPH & BULGAR 1 TABLET. PO SCH ×3 (08:00→18:10)
[2016-12-08 08:05] VITALS: BP 156/75
--- NOTE | 2016-12-08 08:32 | PDOC ---
SUBJECTIVE Subjective Pt noticed increased shortness of air this morning (increased pleural effusion on left side seen on CT Abdomen). She had two dark stools yesterday. Her abdominal pain has improved; she is hoping to be able to eat a more solid diet today. Her repeat Hb is still pending. OBJECTIVE Vital Signs Vital Signs Date Time Temp Pulse Resp B/P Pulse Ox O2 Delivery O2 Flow Rate FiO2 12/08/16 07:23 96 Nasal Cannula 2.0 12/08/16 06:09 18 Nasal Cannula 2.0 12/08/16 05:21 96 Nasal Cannula 2.0 12/08/16 04:42 18 Nasal Cannula 2.0 12/08/16 03:00 98.5 70 18 135/54 99 Nasal Cannula 2.0 98.5 12/07/16 23:00 97.9 66 18 112/51 98 Nasal Cannula 2.0 97.9 12/07/16 20:52 69 178/95 12/07/16 20:51 69 178/69 12/07/16 20:40 20 Nasal Cannula 2.0 12/07/16 20:08 94 Nasal Cannula 2.0 12/07/16 20:00 Nasal Cannula 2.0 12/07/16 19:00 98.3 69 18 178/95 99 Nasal Cannula 2.5 98.3 12/07/16 16:52 67 113/48 12/07/16 15:20 16 Nasal Cannula 2.0 12/07/16 15:00 97.7 67 16 113/48 97 Nasal Cannula 3.5 97.7 12/07/16 14:17 71 138/51 12/07/16 14:17 16 Nasal Cannula 2.0 12/07/16 11:00 98.5 67 14 111/58 99 Nasal Cannula 3.5 98.5 12/07/16 09:47 71 138/51 12/07/16 09:38 71 138/51 12/07/16 09:37 71 138/51 12/07/16 09:37 16 Room Air 12/07/16 09:36 71 138/51 I & O Intake and Output 12/08/16 07:00 Intake Total 800 ml Balance 800 ml Intake Oral 800 ml # Voids 1 # Bowel Movements 2 PHYSICAL EXAM Physical Exam GEN: NAD, AOx3 HEENT: MMM, EOMI, no scleral icterus/injection Cardiac: RRR, no M/R/G Lungs: regular breathing rate and effort, rhonchi heard throughout on the left Abd: soft, mild epigastric tenderness Ext: no erythema/edema LE bilaterally Neuro: CN2-12 GI Psych: normal mood and affect ASSESSMENT/PLAN Assessment/Plan Pt is a 41yo CF initially admitted for acute on chronic CHF, found later to have GI bleed 1)Acute on chronic CHF- s/p thoracentesis and additional HD sessions. Increasing, pt believes due to current liquid diet. Pt is currently on Lasix 80mg TID, will be getting HD today. Pulmonary following. 2)Hx of multiple myeloma- pt in remission. Continued on Acyclovir. Heme/onc following. 3)Acute on chronic anemia- 2/2 GI bleed, s/p cauterization/endo-clip/epi injection and 4 units PRBC, initially. Hb increased from 4.1 to 10.7 and then dropped back down. Pt is now s/p gelfoam embolization of left gastric artery and 3 more units PRBC and 2 units FFP. Hb has decreased to 8.5 from 10, still having dark stool. GI and surgery Following. Repeat Hb still pending this morning, if continues to decrease possible transfer to for bariatric revision 4)HTN- moderately controlled. Currently receiving Carvedilol 25mg BID, Hydralazine 50mg TID, Clonidine patch, Norvasc 10mg QHS, Lisionpril 10mg, Imdur 30mg. Will have Hydralazine IV prn. 5)ESRD- Renal following, pt on HD M/W/. Electrolytes stable 6)Hypothyroidism- TSH elevated at 13.304, currently receiving Levothyroxine 100mcg 7)Anxiety/Depression- pt currently receiving Paroxetine 20mg and Lorazepam 8)Asthma- pt continued on Pulmicort BID and Albuterol prn 9)Leukocytosis- pt was on high dose steroids last week. WBC was continuing to increase until this morning and is now WNL. Pt not having any signs or symptoms of infection. Blood cultures negative. U/A appears dirty, culture ordered. Pt not having any urinary symptoms. 10)PEM- severe 11)Thrombocytopenia- s/p 2 units FFP. Platelets decreased to 54. Could be 2/2 Heparin administration. CTM. Problems: COMMENT Lab Laboratory Tests Test 12/08/16 04:00 Sodium Level 144mmol/L (136-145) Potassium Level 3.6mmol/L (3.5-5.1) Chloride Level 103mmol/L (98-107) Carbon Dioxide Level 29mmol/L (21-32) Anion Gap 12 (6-14) Blood Urea Nitrogen 38mg/dL (7-20) Creatinine 4.0mg/dL (0.6-1.0) Estimated GFR (Cockcroft-Gault) 12.3 Glucose Level 82mg/dL (70-99) Calcium Level 7.5mg/dL (8.5-10.1) GERI FIERRO MD Dec 08, 2016 08:32
[2016-12-08 08:49] LABS: HEMATOCRIT 24.5 % (36.0-47.0); RED BLOOD COUNT 2.49 x10^6/uL (3.50-5.40); WHITE BLOOD COUNT 9.1 x10^3/uL (4.0-11.0)
[2016-12-08] MEDS: METHOCARBAMOL 750 MG TABLET PO PRN ×2 (08:51→20:59)
[2016-12-08] MEDS: FUROSEMIDE 80 MG TABLET PO SCH ×3 (09:00→18:10)
[2016-12-08] MEDS: HYDRALAZINE 50 MG TABLET PO SCH ×3 (09:00→20:52)
[2016-12-08] MEDS: LISINOPRIL 10 MG TABLET PO SCH (09:00)
[2016-12-08 09:04] VITALS: BP 156/75
[2016-12-08] MEDS ORDERED: IV NORMAL SALINE 1000ML BAG 1,000 ML IV PRN ×2 (09:04)
[2016-12-08] MEDS ORDERED: DIALYSIS PATIENT. MC PRN (09:15)
[2016-12-08] MEDS ORDERED: LIDOCAINE 1% PF 2 ML VIAL. INJ ONE (09:15)
[2016-12-08] MEDS ORDERED: DIPHENHYDRAMINE 50 MG/ML VIAL IV PRN ×2 (09:15)
--- NOTE | 2016-12-08 10:31 | PDOC ---
SHASHANK RAMOS LABORER CHEMICAL PROCESSING 12/08/16 1031: SURGICAL PROGRESS NOTE Subjective seen on dialysis on dark stool last night, none today some epigastric discomfort Vital Signs Vital Signs Date Time Temp Pulse Resp B/P Pulse Ox O2 Delivery O2 Flow Rate FiO2 12/08/16 08:48 Nasal Cannula 2.0 12/08/16 08:05 97.5 70 24 156/75 97 97.5 I&O Intake and Output 12/08/16 07:00 Intake Total 800 ml Balance 800 ml Intake Oral 800 ml # Voids 1 # Bowel Movements 2 General: Alert, Oriented X3, Cooperative, No acute distress Abdomen: Soft, Other (ND, mild epigastric TTP) Labs Laboratory Tests Test 12/07/16 05:00 12/08/16 04:00 White Blood Count 11.0x10^3/uL (4.0-11.0) 9.1x10^3/uL (4.0-11.0) Red Blood Count 2.68x10^6/uL (3.50-5.40) 2.49x10^6/uL (3.50-5.40) Hemoglobin 8.5g/dL (12.0-15.5) 8.0g/dL (12.0-15.5) Hematocrit 25.1% (36.0-47.0) 24.5% (36.0-47.0) Mean Corpuscular Volume 94fL (79-100) 98fL (79-100) Mean Corpuscular Hemoglobin 32pg (25-35) 32pg (25-35) Mean Corpuscular Hemoglobin Concent 34g/dL (31-37) 33g/dL (31-37) Red Cell Distribution Width 16.7% (11.5-14.5) 18.0% (11.5-14.5) Platelet Count 54x10^3/uL (140-400) 55x10^3/uL (140-400) Neutrophils (%) (Auto) 85% (31-73) Lymphocytes (%) (Auto) 5% (24-48) Monocytes (%) (Auto) 9% (0-9) Eosinophils (%) (Auto) 1% (0-3) Basophils (%) (Auto) 0% (0-3) Neutrophils # (Auto) 9.4x10^3uL (1.8-7.7) Lymphocytes # (Auto) 0.6x10^3/uL (1.0-4.8) Monocytes # (Auto) 1.0x10^3/uL (0.0-1.1) Eosinophils # (Auto) 0.1x10^3/uL (0.0-0.7) Basophils # (Auto) 0.0x10^3/uL (0.0-0.2) Sodium Level 143mmol/L (136-145) 144mmol/L (136-145) Potassium Level 3.4mmol/L (3.5-5.1) 3.6mmol/L (3.5-5.1) Chloride Level 102mmol/L (98-107) 103mmol/L (98-107) Carbon Dioxide Level 35mmol/L (21-32) 29mmol/L (21-32) Anion Gap 6 (6-14) 12 (6-14) Blood Urea Nitrogen 28mg/dL (7-20) 38mg/dL (7-20) Creatinine 3.0mg/dL (0.6-1.0) 4.0mg/dL (0.6-1.0) Estimated GFR (Cockcroft-Gault) 17.2 12.3 Glucose Level 106mg/dL (70-99) 82mg/dL (70-99) Calcium Level 7.7mg/dL (8.5-10.1) 7.5mg/dL (8.5-10.1) Laboratory Tests Test 12/08/16 04:00 White Blood Count 9.1x10^3/uL (4.0-11.0) Red Blood Count 2.49x10^6/uL (3.50-5.40) Hemoglobin 8.0g/dL (12.0-15.5) Hematocrit 24.5% (36.0-47.0) Mean Corpuscular Volume 98fL (79-100) Mean Corpuscular Hemoglobin 32pg (25-35) Mean Corpuscular Hemoglobin Concent 33g/dL (31-37) Red Cell Distribution Width 18.0% (11.5-14.5) Platelet Count 55x10^3/uL (140-400) Sodium Level 144mmol/L (136-145) Potassium Level 3.6mmol/L (3.5-5.1) Chloride Level 103mmol/L (98-107) Carbon Dioxide Level 29mmol/L (21-32) Anion Gap 12 (6-14) Blood Urea Nitrogen 38mg/dL (7-20) Creatinine 4.0mg/dL (0.6-1.0) Estimated GFR (Cockcroft-Gault) 12.3 Glucose Level 82mg/dL (70-99) Calcium Level 7.5mg/dL (8.5-10.1) Problem List Problems Medical Problems: (1) Accelerated hypertension Status: Acute (2) Acute on chronic diastolic congestive heart failure due to valvular disease Status: Acute (3) Bilateral pleural effusion Status: Acute (4) Cardiomyopathy Status: Acute (5) COPD with acute exacerbation Status: Acute (6) End stage renal disease Status: Acute Assessment/Plan anastomotic ulcer hgb 8, 8.5 yesterday, one dark stool yesterday pleural effusions on CT discussion of tx to [facility] if ongoing bleeding, transfusion needs Problems: JESE REYNA MD 12/08/16 1140: SURGICAL PROGRESS NOTE Assessment/Plan Agree with above Problems: SHASHANK RAMOS APRN Dec 08, 2016 10:31 JESE REYNA MD Dec 08, 2016 11:40
--- NOTE | 2016-12-08 10:53 | PDOC ---
Subjective: Subjective: Seen during dialysis. Feels SOA. Really wants food. Dark stool last night. Objective: Vital Signs: Vital Signs Date Time Temp Pulse Resp B/P Pulse Ox O2 Delivery O2 Flow Rate FiO2 12/08/16 08:48 Nasal Cannula 2.0 12/08/16 08:05 97.5 70 24 156/75 97 97.5 Labs: Laboratory Tests Test 12/08/16 04:00 White Blood Count 9.1x10^3/uL Red Blood Count 2.49x10^6/uL Hemoglobin 8.0g/dL Hematocrit 24.5% Mean Corpuscular Volume 98fL Mean Corpuscular Hemoglobin 32pg Mean Corpuscular Hemoglobin Concent 33g/dL Red Cell Distribution Width 18.0% Platelet Count 55x10^3/uL Sodium Level 144mmol/L Potassium Level 3.6mmol/L Chloride Level 103mmol/L Carbon Dioxide Level 29mmol/L Anion Gap 12 Blood Urea Nitrogen 38mg/dL Creatinine 4.0mg/dL Estimated GFR (Cockcroft-Gault) 12.3 Glucose Level 82mg/dL Calcium Level 7.5mg/dL Imaging: CTA A/P 12/07/16 IMPRESSION: 1. No active GI tract bleeding is identified. 2. Increasing contrast collections within the colon suggests that there has been some interval GI tract bleeding related to the patient's previous CTA and/ or angiographic exams. 3. 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 4. Increasing moderate-sized left pleural effusion with left lower lobe atelectasis. 5. Anasarca PE: GEN: NAD LUNGS: CTAB HEART: RRR ABD: S/ND, epigastric tenderness NEURO/PSYCH: A & O 3 A/P: Melena, anemia -Hgb drifting, dark stools ongoing (she says slowing) -on clears, wants more -on PPI -interval CTA as above w/ possible interval bleeding Gastric ulcer, h/o gastric bypass -s/p cautery/endo-clip/epi inj 12/03 -CTA neg for bleeding; s/p celiac + LGA injections, empiric embolization of LGA branches 12/04 -surgery following -- CTA noted. Discussion re: possible transfer if continues to bleed. AYAH ESPINOSA Dec 08, 2016 10:53
--- NOTE | 2016-12-08 11:01 | PDOC ---
Renal-Progress Notes Subjective Notes Notes BETTER History of Present Illness Hx of present illness STABLE Vitals Vitals Vital Signs Date Time Temp Pulse Resp B/P Pulse Ox O2 Delivery O2 Flow Rate FiO2 12/08/16 08:48 Nasal Cannula 2.0 12/08/16 08:05 97.5 70 24 156/75 97 97.5 Weight Weight [ ] I.O. Intake and Output Intake and Output 12/08/16 07:00 Intake Total 800 ml Balance 800 ml Intake Oral 800 ml # Voids 1 # Bowel Movements 2 Labs Labs Laboratory Tests Test 12/08/16 04:00 White Blood Count 9.1x10^3/uL (4.0-11.0) Red Blood Count 2.49x10^6/uL (3.50-5.40) Hemoglobin 8.0g/dL (12.0-15.5) Hematocrit 24.5% (36.0-47.0) Mean Corpuscular Volume 98fL (79-100) Mean Corpuscular Hemoglobin 32pg (25-35) Mean Corpuscular Hemoglobin Concent 33g/dL (31-37) Red Cell Distribution Width 18.0% (11.5-14.5) Platelet Count 55x10^3/uL (140-400) Sodium Level 144mmol/L (136-145) Potassium Level 3.6mmol/L (3.5-5.1) Chloride Level 103mmol/L (98-107) Carbon Dioxide Level 29mmol/L (21-32) Anion Gap 12 (6-14) Blood Urea Nitrogen 38mg/dL (7-20) Creatinine 4.0mg/dL (0.6-1.0) Estimated GFR (Cockcroft-Gault) 12.3 Glucose Level 82mg/dL (70-99) Calcium Level 7.5mg/dL (8.5-10.1) Micro Micro Microbiology 12/05/16 Blood Culture - Preliminary, Resulted NO GROWTH AFTER 2 DAYS 11/29/16 Gram Stain - Final, Complete Review of Systems Constitutional: yes: alert, oriented, weakness Eyes: Yes: no symptom reported Pulmonary: Yes dyspnea Cardiovascular: Yes no symptom reported Gastrointestional: Yes: no symptom reported Genitourinary: Yes: no symptom reported Musculoskeletal: Yes: no symptom reported Physical Exam General Appearance: no apparent distress Skin: warm Respiratory: decreased breath sounds, wheezing Heart: S1S2, RRR Abdomen: soft, bowel sounds present Neurology: alert, oriented Musculoskeletal: Other Assessment Assessment IMP AECOPD ANEMIA FLUID OVERLOAD ESRD PLAN HD TODAY UF TO [facility] NATE MAYER MD Dec 08, 2016 11:01
--- NOTE | 2016-12-08 12:06 | PDOC ---
PROGRESS NOTES Subjective Subjective c/c - f/u of Multiple myeloma ROS - No GI bleed per pt. Objective Objective Vital Signs Date Time Temp Pulse Resp B/P Pulse Ox O2 Delivery O2 Flow Rate FiO2 12/08/16 08:48 Nasal Cannula 2.0 12/08/16 08:05 97.5 70 24 156/75 97 97.5 Intake and Output 12/08/16 07:00 Intake Total 800 ml Balance 800 ml Intake Oral 800 ml # Voids 1 # Bowel Movements 2 Physical Exam Heart: Normal S1, Normal S2 Lungs: Clear to auscultation Psych/Mental Status: Mental status NL Skin: No rashes Assessment Assessment Problems Medical Problems: (1) Accelerated hypertension Status: Acute (2) Acute on chronic diastolic congestive heart failure due to valvular disease Status: Acute (3) Bilateral pleural effusion Status: Acute (4) Cardiomyopathy Status: Acute (5) COPD with acute exacerbation Status: Acute (6) End stage renal disease Status: Acute A/P: 1. Multiple myeloma, currently on chemo with velcade and well controlled.. 2. Dyspnea secondary to acute on chronic congestive heart failure, I do not think it is related to velcade or MM. He myeloma is under very good control. Appreciate cardiology management. . 3. End-stage renal disease, on hemodialysis. 4. Anemia due to GI bleed, monitor Hb - EGD 12/03/16 : s/p gastric bypass gastric ulcer below GE junction S/p cautery/endo-clip/ epi injection with cessation of bleeding. Hb worse at 8.0, monitor. Bleeding resolved. 5. Thrombocytopenia - 55. Monitor. Comment Review of Relevant I have reviewed the following items ernesto (where applicable) has been applied. Labs Laboratory Tests Test 12/07/16 05:00 12/08/16 04:00 White Blood Count 11.0x10^3/uL (4.0-11.0) 9.1x10^3/uL (4.0-11.0) Red Blood Count 2.68x10^6/uL (3.50-5.40) 2.49x10^6/uL (3.50-5.40) Hemoglobin 8.5g/dL (12.0-15.5) 8.0g/dL (12.0-15.5) Hematocrit 25.1% (36.0-47.0) 24.5% (36.0-47.0) Mean Corpuscular Volume 94fL (79-100) 98fL (79-100) Mean Corpuscular Hemoglobin 32pg (25-35) 32pg (25-35) Mean Corpuscular Hemoglobin Concent 34g/dL (31-37) 33g/dL (31-37) Red Cell Distribution Width 16.7% (11.5-14.5) 18.0% (11.5-14.5) Platelet Count 54x10^3/uL (140-400) 55x10^3/uL (140-400) Neutrophils (%) (Auto) 85% (31-73) Lymphocytes (%) (Auto) 5% (24-48) Monocytes (%) (Auto) 9% (0-9) Eosinophils (%) (Auto) 1% (0-3) Basophils (%) (Auto) 0% (0-3) Neutrophils # (Auto) 9.4x10^3uL (1.8-7.7) Lymphocytes # (Auto) 0.6x10^3/uL (1.0-4.8) Monocytes # (Auto) 1.0x10^3/uL (0.0-1.1) Eosinophils # (Auto) 0.1x10^3/uL (0.0-0.7) Basophils # (Auto) 0.0x10^3/uL (0.0-0.2) Sodium Level 143mmol/L (136-145) 144mmol/L (136-145) Potassium Level 3.4mmol/L (3.5-5.1) 3.6mmol/L (3.5-5.1) Chloride Level 102mmol/L (98-107) 103mmol/L (98-107) Carbon Dioxide Level 35mmol/L (21-32) 29mmol/L (21-32) Anion Gap 6 (6-14) 12 (6-14) Blood Urea Nitrogen 28mg/dL (7-20) 38mg/dL (7-20) Creatinine 3.0mg/dL (0.6-1.0) 4.0mg/dL (0.6-1.0) Estimated GFR (Cockcroft-Gault) 17.2 12.3 Glucose Level 106mg/dL (70-99) 82mg/dL (70-99) Calcium Level 7.7mg/dL (8.5-10.1) 7.5mg/dL (8.5-10.1) Laboratory Tests Test 12/08/16 04:00 White Blood Count 9.1x10^3/uL (4.0-11.0) Red Blood Count 2.49x10^6/uL (3.50-5.40) Hemoglobin 8.0g/dL (12.0-15.5) Hematocrit 24.5% (36.0-47.0) Mean Corpuscular Volume 98fL (79-100) Mean Corpuscular Hemoglobin 32pg (25-35) Mean Corpuscular Hemoglobin Concent 33g/dL (31-37) Red Cell Distribution Width 18.0% (11.5-14.5) Platelet Count 55x10^3/uL (140-400) Sodium Level 144mmol/L (136-145) Potassium Level 3.6mmol/L (3.5-5.1) Chloride Level 103mmol/L (98-107) Carbon Dioxide Level 29mmol/L (21-32) Anion Gap 12 (6-14) Blood Urea Nitrogen 38mg/dL (7-20) Creatinine 4.0mg/dL (0.6-1.0) Estimated GFR (Cockcroft-Gault) 12.3 Glucose Level 82mg/dL (70-99) Calcium Level 7.5mg/dL (8.5-10.1) Microbiology 12/05/16 Blood Culture - Preliminary, Resulted NO GROWTH AFTER 2 DAYS 11/29/16 Gram Stain - Final, Complete Medications Current Medications Sodium Chloride (Iv Sodium Chloride 0.9% 1000ml Bag) 1,000 ml @ 100 mls/hr Q10H IV Last administered on 11/27/16 19:49; Start 11/27/16 at 19:01; Stop at 05:00; Status DC Albuterol/ Ipratropium (Duoneb) 6 ml 1X ONCE NEB Last administered on 19:10; Start 11/27/16 at 19:30; Stop 11/27/16 at 19:31; Status DC Methylprednisolone Sodium Succinate (Solu-Medrol 125mg Vial) 125 mg 1X ONCE IV Last administered on 11/27/16 19:49; Start 11/27/16 at 19:30; Stop 11/27/16 at 19:31; Status DC Acetaminophen/ Hydrocodone Bitart (Lortab 7.5/325) 1 tab 1X ONCE PO Last administered on 11/27/16 20:29; Start 11/27/16 at 20:15; Stop 11/27/16 at 20:17; Status DC Lisinopril (Prinivil) 10 mg 1X ONCE PO Last administered on 11/27/16 21:09; Start 11/27/16 at 21:15; Stop 11/27/16 at 21:16; Status DC Amlodipine Besylate (Norvasc) 10 mg 1X ONCE PO Last administered on 11/27/16 21:08; Start 11/27/16 at 21:15; Stop 11/27/16 at 21:16; Status DC Clonidine HCl (Catapres) 0.3 mg 1X ONCE PO Last administered on 11/27/16 21:09 ; Start 11/27/16 at 21:15; Stop 11/27/16 at 21:16; Status DC Ondansetron HCl (Zofran) 4 mg PRN Q8HRS PRN IV NAUSEA/VOMITING Last administered on 11/28/16 18:24; Start 11/27/16 at 22:30; Stop 11/28/16 at 22:29; Status DC Fentanyl Citrate (Fentanyl 2ml Vial) 50 mcg PRN Q2HR PRN IV SEVERE PAIN Last administered on 11/28/16 21:31; Start 11/27/16 at 22:30; Stop 11/28/16 at 22:29; Status DC Acetaminophen (Tylenol) 650 mg PRN Q4HRS PRN PO FEVER; Start 11/27/16 at 22:30; Stop 11/28/16 at 22:29; Status DC Albuterol/ Ipratropium (Duoneb) 3 ml RTQID NEB Last administered on 11/29/16 06 :06; Start 11/28/16 at 08:00; Stop 11/29/16 at 07:59; Status DC Methylprednisolone Sodium Succinate (Solu-Medrol 40mg Vial) 60 mg Q6HRS IV Last administered on 12/03/16 00:24; Start 11/28/16 at 00:00; Stop 12/03/16 at 13:20; Status DC Diphenhydramine HCl (Benadryl) 25 mg 1X ONCE IVP Last administered on 23:30; Start 11/27/16 at 23:00; Stop 11/27/16 at 23:01; Status DC Diphenhydramine HCl (Benadryl) 25 mg PRN Q6HRS PRN IVP ITCHING Last administered on 12/02/16 02:37; Start 11/28/16 at 02:00 Albuterol Sulfate (Ventolin Neb Soln) 2.5 mg PRN Q4HRS PRN NEB SHORTNESS OF BREATH Last administered on 12/08/16 05:20; Start 11/28/16 at 05:15 Acetaminophen (Tylenol) 500 mg PRN Q6HRS PRN PO PAIN Last administered on 06:13; Start 11/28/16 at 07:15 Lactobacillus Acidophilus (Bacid, Maren-Bid) 1 tab TIDWMEALS PO Last administered on 12/07/16 16:51; Start 11/28/16 at 08:00 Acyclovir (Zovirax) 200 mg BID PO Last administered on 12/07/16 20:39; Start 11/28/16 at 09:00 Amlodipine Besylate (Norvasc) 10 mg HS PO Last administered on 12/07/16 20:51 ; Start 11/28/16 at 21:00 Clonidine HCl (Catapres) 0.3 mg TID PO Last administered on 11/28/16 20:54; Start 11/28/16 at 09:00; Stop 11/29/16 at 14:02; Status DC Darbepoetin Apolinar (Aranesp) 60 mcg Tu SQ Last administered on 12/05/16 21:26; Start 11/28/16 at 21:00 Diclofenac Epolamine (Flector) 1 patch BID TD ; Start 11/28/16 at 09:00; Stop 11/28/16 at 14:38; Status DC Furosemide (Lasix) 80 mg TID@,,17 PO Last administered on 12/07/16 16:52; Start 11/28/16 at 09:00 Acetaminophen/ Hydrocodone Bitart (Lortab 7.5/325) 1 tab PRN Q4HRS PRN PO SEVERE PAIN Last administered on 12/08/16 08:48; Start 11/28/16 at 07:15 Isosorbide Mononitrate (Imdur) 30 mg DAILY PO Last administered on 12/07/16 09 :37; Start 11/28/16 at 09:00 Lidocaine/ Prilocaine (Emla) 1 oniel PRN QID PRN TP pain; Start 11/28/16 at 07:15 Lisinopril (Prinivil) 10 mg DAILY PO Last administered on 12/07/16 09:36; Start 11/28/16 at 09:00 Loperamide HCl (Imodium) 2 mg PRN Q15MIN PRN PO DIARRHEA; Start 11/28/16 at 07: 15 Lorazepam (Ativan) 1 mg PRN Q6HRS PRN PO VOMITING Last administered on 21:06; Start 11/28/16 at 07:15 Methocarbamol (Robaxin) 1,500 mg PRN QID PRN PO SEVERE PAIN Last administered on 12/08/16 08:51; Start 11/28/16 at 07:15 Paroxetine HCl (Paxil) 20 mg QHS PO Last administered on 12/07/16 20:39; Start 11/28/16 at 21:00 Sevelamer Carbonate (Renvela) 800 mg TIDWMEALS PO Last administered on 17:40; Start 11/28/16 at 08:00 Dicyclomine HCl (Bentyl) 20 mg PRN TID PRN PO Stomach pain Last administered on 11/28/16 09:02; Start 11/28/16 at 07:45 Diphenhydramine HCl (Benadryl) 50 mg QHS PO Last administered on 12/07/16 20: 39; Start 11/28/16 at 21:00 Non-Formulary Medication 2 puff DAILY IH ; Start 11/28/16 at 09:00; Stop 11/28/16 at 09:00; Status DC Folic Acid/ Multivitamins/Vit B12 (Nephro-Sheree) 1 tab DAILY PO Last administered on 12/02/16 10:36; Start 11/28/16 at 09:00 Cetirizine HCl (Zyrtec) 10 mg QHS PO Last administered on 12/07/16 20:40; Start 11/28/16 at 21:00 Non-Formulary Medication 8 mg PRN BID PRN PO NAUSEA/VOMITING; Start 11/28/16 at 07:15; Stop 11/30/16 at 10:18; Status DC Budesonide 0.5 mg 0.5 mg RTBID NEB Last administered on 12/08/16 07:23; Start 11/28/16 at 08:00 Magnesium Sulfate/ Dextrose (Magnesium Sulfate PREMIX 2GM) 50 ml @ 25 mls/hr PRN DAILY PRN IV for Mag < 1.7 on am labs; Start 11/28/16 at 10:45 Hydralazine HCl (Apresoline) 50 mg TID PO ; Start 11/28/16 at 14:00; Stop at 15:49; Status DC Hydralazine HCl (Apresoline) 10 mg PRN Q4HRS PRN IVP ELEVATED BP, SEE COMMENTS Last administered on 12/05/16 00:42; Start 11/28/16 at 12:00 Hydralazine HCl 25 mg 25 mg TID PO Last administered on 11/30/16 14:14; Start 11/28/16 at 21:00; Stop 11/30/16 at 15:13; Status DC Sodium Chloride (Iv Sodium Chloride 0.9% 1000ml Bag) 1,000 ml @ 1,000 mls/hr Q1H PRN IV hypotension; Start 11/29/16 at 08:51; Stop 11/29/16 at 14:50; Status DC Diphenhydramine HCl (Benadryl) 25 mg 1X PRN PRN IV ITCHING; Start 11/29/16 at 09 :00; Stop 11/30/16 at 08:59; Status DC Diphenhydramine HCl (Benadryl) 25 mg 1X PRN PRN IV ITCHING; Start 11/29/16 at 09 :00; Stop 11/30/16 at 08:59; Status DC Info (PHARMACY MONITORING -- do not chart) 1 each PRN DAILY PRN MC SEE COMMENTS ; Start 11/29/16 at 09:00; Stop 12/05/16 at 08:43; Status DC Info (PHARMACY MONITORING -- do not chart) 1 each PRN DAILY PRN MC SEE COMMENTS ; Start 11/29/16 at 09:00; Status UNV Fentanyl Citrate (Fentanyl 2ml Vial) 25 mcg PRN Q5MIN PRN IV MILD PAIN; Start 11/29/16 at 09:30; Stop 11/30/16 at 03:58; Status DC Fentanyl Citrate 50 mcg 50 mcg PRN Q5MIN PRN IV MODERATE PAIN Last administered on 11/29/16 17:38; Start 11/29/16 at 09:30; Stop 11/30/16 at 03:58; Status DC Lactated Ringer's (Iv Lactated Ringers) 1,000 ml @ 0 mls/hr Q0M IV ; Start 11/29 at 09:16; Stop 11/29/16 at 21:15; Status DC Lidocaine HCl 2 ml 1X PRN PRN ID IV START; Start 11/29/16 at 09:30; Stop at 03:58; Status DC Prochlorperazine Edisylate (Compazine) 5 mg PACU PRN PRN IV NAUSEA; Start at 09:30; Stop 11/30/16 at 03:58; Status DC Fentanyl Citrate (Fentanyl 2ml Vial) 50 mcg PRN Q2HR PRN IV PAIN Last administered on 12/01/16 13:31; Start 11/29/16 at 10:30; Stop 12/01/16 at 17:25 ; Status DC Ondansetron HCl (Zofran) 4 mg PRN Q6HRS PRN IV NAUSEA/VOMITING Last administered on 11/29/16 10:59; Start 11/29/16 at 10:30; Stop 11/29/16 at 14:41; Status DC Lidocaine/Sodium Bicarbonate (Buffered Lidocaine 1%) 3 ml 1X ONCE IJ Last administered on 11/29/16 14:32; Start 11/29/16 at 12:45; Stop 11/29/16 at 12:46; Status DC Bupivacaine HCl/ Epinephrine Bitart (Sensorcain-Mpf Epi 0.5%-[id number]) 30 ml STK -MED ONCE .ROUTE Last administered on 11/29/16 16:47; Start 11/29/16 at 13:57; Stop 11/29/16 at 13:58; Status DC Carvedilol (Coreg) 12.5 mg BIDWMEALS PO Last administered on 11/30/16 09:29; Start 11/29/16 at 17:00; Stop 11/30/16 at 15:13; Status DC Clonidine HCl 1 patch 1 patch WEEKLY TD Last administered on 12/06/16 10:51; Start 11/29/16 at 14:30 Propofol (Diprivan) 20 ml @ As Directed STK-MED ONCE IV ; Start 11/29/16 at 14:14 ; Stop 11/29/16 at 14:15; Status DC Fentanyl Citrate (Fentanyl 2ml Vial) 100 mcg STK-MED ONCE .ROUTE ; Start at 14:14; Stop 11/29/16 at 14:15; Status DC Ondansetron HCl (Zofran) 4 mg STK-MED ONCE .ROUTE ; Start 11/29/16 at 14:14; Stop 11/29/16 at 14:15; Status DC Ondansetron HCl (Zofran) 8 mg PRN Q6HRS PRN IV NAUSEA/VOMITING Last administered on 12/05/16 03:28; Start 11/29/16 at 14:45; Stop 12/05/16 at 08:51 ; Status DC Midazolam HCl (Versed) 2 mg STK-MED ONCE .ROUTE ; Start 11/29/16 at 16:44; Stop 11/29/16 at 16:45; Status DC Pantoprazole Sodium (Protonix) 40 mg DAILYAC PO Last administered on 12/02/16 10:37; Start 11/30/16 at 09:30; Stop 12/03/16 at 07:43; Status DC Ondansetron HCl (Zofran Odt) 8 mg PRN BID PRN PO NAUSEA/VOMITING Last administered on 12/07/16 20:51; Start 11/30/16 at 10:30 Carvedilol (Coreg) 25 mg BIDWMEALS PO Last administered on 12/07/16 09:38; Start 11/30/16 at 17:00 Hydralazine HCl (Apresoline) 50 mg TID PO Last administered on 12/07/16 20:52 ; Start 11/30/16 at 15:30 Aspirin (Ecotrin) 81 mg [id number] PO Last administered on 12/07/16 09:38; Start 11/30/16 at 16:00 Regadenoson (Lexiscan) 0.4 mg 1X ONCE IV Last administered on 12/01/16 09:28 ; Start 12/01/16 at 08:15; Stop 12/01/16 at 08:16; Status DC Levothyroxine Sodium 100 mcg 100 mcg DAILY07 PO Last administered on 12/08/16 06:03; Start 12/01/16 at 14:00 Sodium Chloride 1,000 ml @ 1,000 mls/hr Q1H PRN IV hypotension; Start 12/01/16 at 15:26; Stop 12/01/16 at 21:00; Status DC Sodium Chloride (Iv Sodium Chloride 0.9% 1000ml Bag) 1,000 ml @ 400 mls/hr Q2H30M PRN IV PATENCY; Start 12/01/16 at 15:26; Stop 12/01/16 at 21:00; Status DC Info (PHARMACY MONITORING -- do not chart) 1 each PRN DAILY PRN MC SEE COMMENTS ; Start 12/01/16 at 15:30; Status UNV Info (PHARMACY MONITORING -- do not chart) 1 each PRN DAILY PRN MC SEE COMMENTS ; Start 12/01/16 at 15:30; Status UNV Fentanyl Citrate (Fentanyl 2ml Vial) 50 mcg PRN Q4HRS PRN IV PAIN Last administered on 12/08/16 04:42; Start 12/01/16 at 17:30 Montelukast Sodium (Singulair) 10 mg QHS PO Last administered on 12/07/16 20: 39; Start 12/02/16 at 21:00 Pantoprazole Sodium 40 mg 40 mg DAILYAC IVP ; Start 12/03/16 at 08:00; Stop 10/07 at 08:00; Status DC Pantoprazole Sodium 80 mg/ Sodium Chloride 100 ml @ 10 mls/hr Q10H IV Last administered on 12/08/16 01:12; Start 12/03/16 at 08:00 Propofol (Diprivan) 20 ml @ As Directed STK-MED ONCE IV ; Start 12/03/16 at 09: 23; Stop 12/03/16 at 09:24; Status DC Lidocaine HCl (Lidocaine Pf 2% Vial) 5 ml STK-MED ONCE .ROUTE ; Start 12/03/16 at 09:24; Stop 12/03/16 at 09:25; Status DC Ephedrine Sulfate 50 mg STK-MED ONCE IV ; Start 12/03/16 at 09:24; Stop at 09:25; Status DC Morphine Sulfate 2 mg 2 mg PRN Q2HR PRN IV PAIN Last administered on 12/08/16 06:09; Start 12/03/16 at 10:30 Sodium Chloride 1,000 ml @ 1,000 mls/hr Q1H PRN IV hypotension; Start 12/03/16 at 17:19; Stop 12/03/16 at 23:18; Status DC Sodium Chloride (Iv Sodium Chloride 0.9% 1000ml Bag) 1,000 ml @ 400 mls/hr Q2H30M PRN IV PATENCY; Start 12/03/16 at 17:19; Stop 12/04/16 at 05:18; Status DC Info (PHARMACY MONITORING -- do not chart) 1 each PRN DAILY PRN MC SEE COMMENTS ; Start 12/03/16 at 17:30; Status UNV Info 1 each 1 each PRN DAILY PRN MC SEE COMMENTS; Start 12/03/16 at 17:30; Status UNV Amino Acids/ Glycerin/ Electrolytes (Procalamine) 1,000 ml @ 80 mls/hr [id number] IV Last administered on 12/03/16 21:05; Start 12/03/16 at 19:45; Stop at 13:05; Status DC Prochlorperazine (Compazine) 25 mg PRN Q12HR PRN [place] NAUSEA/VOMITING; Start 10/07 at 22:00 Lidocaine HCl (Xylocaine-Mpf 1% Vial) 2 ml STK-MED ONCE .ROUTE ; Start 12/04/16 at 14:48; Stop 12/04/16 at 14:49; Status DC Iohexol (Omnipaque 350 Mg/ml) 90 ml 1X ONCE IV Last administered on 12/04/16 16:17; Start 12/04/16 at 16:00; Stop 12/04/16 at 16:01; Status DC Info (Do NOT chart on this entry -- for MONITORING) 1 each PRN DAILY PRN MC SEE COMMENTS; Start 12/04/16 at 16:00; Stop 12/06/16 at 15:59; Status DC Gelatin (Gelfoam Size 12-7mm) 1 each STK-MED ONCE .ROUTE ; Start 12/04/16 at 17 :09; Stop 12/04/16 at 17:10; Status DC Midazolam HCl (Versed) 2 mg STK-MED ONCE .ROUTE ; Start 12/04/16 at 17:10; Stop 12/04/16 at 17:11; Status DC Heparin Sodium/ Sodium Chloride 1,000 unit 1X ONCE IART Last administered on 20:00; Start 12/04/16 at 17:15; Stop 12/04/16 at 17:16; Status DC Lidocaine/Sodium Bicarbonate (Buffered Lidocaine 1%) 20 ml 1X ONCE IJ Last administered on 12/04/16 20:00; Start 12/04/16 at 17:15; Stop 12/04/16 at 17:16 ; Status DC Midazolam HCl (Versed) 2 mg 1X ONCE IV Last administered on 12/04/16 20:02; Start 12/04/16 at 17:15; Stop 12/04/16 at 17:16; Status DC Fentanyl Citrate (Fentanyl 2ml Vial) 100 mcg 1X ONCE IV Last administered on 20:02; Start 12/04/16 at 17:15; Stop 12/04/16 at 17:16; Status DC Iohexol (Omnipaque 300 Mg/ml) 100 ml 1X ONCE IART Last administered on 20:03; Start 12/04/16 at 17:15; Stop 12/04/16 at 17:16; Status DC Info 1 each 1 each PRN DAILY PRN MC SEE COMMENTS; Start 12/04/16 at 17:15; Stop 12/06/16 at 17:14; Status Cancel Heparin Sodium/ Sodium Chloride 1,500 ml @ As Directed STK-MED ONCE .ROUTE ; Start 12/04/16 at 17:13; Stop 12/04/16 at 17:14; Status DC Diphenhydramine HCl (Benadryl) 25 mg 1X ONCE IVP Last administered on 20:01; Start 12/04/16 at 18:15; Stop 12/04/16 at 18:16; Status DC Info (PHARMACY MONITORING -- do not chart) 1 each PRN DAILY PRN MC SEE COMMENTS ; Start 12/04/16 at 21:45 Ondansetron HCl (Zofran) 8 mg PRN Q4HRS PRN IV NAUSEA/VOMITING Last administered on 12/07/16 09:39; Start 12/05/16 at 09:00 Alteplase, Recombinant (Cathflo) 2 mg 1X ONCE INT CAT Last administered on 03:14; Start 12/07/16 at 03:15; Stop 12/07/16 at 03:16; Status DC Alteplase, Recombinant (Cathflo) 2 mg 1X ONCE INT CAT ; Start 12/07/16 at 04:30 ; Stop 12/07/16 at 04:31; Status DC Phenyleph/Shark Oil/Min Oil/Petrol (Preparation H) 1 oniel BID PRN RC RECTAL PAIN Last administered on 12/07/16 09:35; Start 12/07/16 at 08:15 Iohexol 90 ml 90 ml 1X ONCE IV ; Start 12/07/16 at 13:00; Stop 12/07/16 at 13: 11; Status DC Sodium Chloride (Iv Sodium Chloride 0.9% 1000ml Bag) 1,000 ml @ 1,000 mls/hr Q1H PRN IV hypotension; Start 12/08/16 at 09:04; Stop 12/08/16 at 15:03 Diphenhydramine HCl (Benadryl) 25 mg 1X PRN PRN IV ITCHING; Start 12/08/16 at 09:15; Stop 12/09/16 at 09:14 Diphenhydramine HCl 25 mg 25 mg 1X PRN PRN IV ITCHING; Start 12/08/16 at 09:15 ; Stop 12/09/16 at 09:14 Sodium Chloride (Iv Sodium Chloride 0.9% 1000ml Bag) 1,000 ml @ 400 mls/hr Q2H30M PRN IV PATENCY; Start 12/08/16 at 09:04; Stop 12/08/16 at 21:03 Info (PHARMACY MONITORING -- do not chart) 1 each PRN DAILY PRN MC SEE COMMENTS ; Start 12/08/16 at 09:15; Status UNV Lidocaine HCl (Xylocaine-Mpf 1% Vial) 2 ml 1X ONCE INJ Last administered on t 09:49; Start 12/08/16 at 09:15; Stop 12/08/16 at 09:23; Status DC Active Scripts Active Levaquin (Levofloxacin) 500 Mg Tablet 500 Mg PO Q48H Lisinopril 10 Mg Tablet 10 Mg PO DAILY 30 Days Hydrocodone-Apap 7.5-325 (Hydrocodone Bit/Acetaminophen) 1 Each Tablet 1 Tab PO PRN Q4HRS PRN 14 Days Flector (Diclofenac Epolamine) 1 Each Patch.td12 1 Patch TD BID 30 Days Aranesp Syringe (Darbepoetin Apolinar In Polysorbat) 60 Mcg/0.3 Ml Disp.syrin 60 Mcg SQ WEEKLYHS 30 Days Furosemide 80 Mg Tablet 80 Mg PO TID 30 Days Loperamide (Loperamide Hcl) 2 Mg Capsule 2 Mg PO PRN Q15MIN PRN 30 Days Isosorbide Mononitrate Er (Isosorbide Mononitrate) 30 Mg Tab.er.24h 30 Mg PO DAILY 30 Days Maren-Bid Caplet (Acidoph/L.bulg/Bif.b/S.thermop) 1 Each Tablet 1 Tab PO TIDWMEALS 30 Days Reported Lorazepam 1 Mg Tablet 1 Mg PO PRN Q6HRS PRN Renvela (Sevelamer Carbonate) 800 Mg Tablet 2 Tab PO TID Lidocaine-Prilocaine Cream (Lidocaine/Prilocaine) 30 Gm Cream..g. 1 Oniel TP UD Dicyclomine Hcl 20 Mg Tablet 1 Tab PO TID PRN Clonidine Hcl 0.3 Mg Tablet 0.3 Mg PO TID Amlodipine Besylate 10 Mg Tablet 10 Mg PO HS Renal Caps Softgel (Folic Acid/Vitamin B Comp W-C) 1 Mg Capsule 1 Cap PO DAILY Advair 250-50 Diskus (Fluticasone/Salmeterol) 1 Each Disk.w.dev 2 Puff IH DAILY Proair Hfa Inhaler (Albuterol Sulfate) 8.5 Gm Hfa.aer.ad 2 Puff INH PRN Q6HRS PRN Acyclovir 200 Mg Capsule 200 Mg PO BID Paroxetine Hcl 20 Mg Tablet 20 Mg PO QHS Nighttime Sleep Aid (Diphenhydramine Hcl) 50 Mg Capsule 50 Mg PO QHS Ondansetron Hcl 8 Mg Tablet 8 Mg PO BID PRN Methocarbamol 750 Mg Tablet 1,500 Mg PO QID PRN Tylenol Extra Strength (Acetaminophen) 500 Mg Tablet 500 Mg PO Q6HRS PRN Claritin (Loratadine) 10 Mg Capsule 10 Mg PO HS Vitals/I & O Vital Sign - Last 24 Hours 12/07/16 12/07/16 12/07/16 12/07/16 14:17 14:17 15:00 15:20 Temp 97.7 97.7 Pulse 71 67 Resp 16 16 16 B/P 138/51 113/48 Pulse Ox 97 O2 Delivery Nasal Cannula Nasal Cannula Nasal Cannula O2 Flow Rate 2.0 3.5 2.0 12/07/16 12/07/16 12/07/16 12/07/16 16:52 19:00 20:00 20:08 Temp 98.3 98.3 Pulse 67 69 Resp 18 B/P 113/48 178/95 Pulse Ox 99 94 O2 Delivery Nasal Cannula Nasal Cannula Nasal Cannula O2 Flow Rate 2.5 2.0 2.0 12/07/16 12/07/16 12/07/16 12/07/16 20:40 20:51 20:52 23:00 Temp 97.9 97.9 Pulse 69 69 66 Resp 20 18 B/P 178/69 178/95 112/51 Pulse Ox 98 O2 Delivery Nasal Cannula Nasal Cannula O2 Flow Rate 2.0 2.0 12/08/16 12/08/16 12/08/16 12/08/16 03:00 04:42 05:21 06:09 Temp 98.5 98.5 Pulse 70 Resp 18 18 18 B/P 135/54 Pulse Ox 99 96 O2 Delivery Nasal Cannula Nasal Cannula Nasal Cannula Nasal Cannula O2 Flow Rate 2.0 2.0 2.0 2.0 12/08/16 12/08/16 12/08/16 12/08/16 07:10 07:23 08:00 08:05 Temp 97.5 97.5 Pulse 70 Resp 24 B/P 156/75 Pulse Ox 96 97 O2 Delivery Nasal Cannula Nasal Cannula Nasal Cannula Nasal Cannula O2 Flow Rate 2.0 2.0 2.0 2.0 12/08/16 08:48 O2 Delivery Nasal Cannula O2 Flow Rate 2.0 Intake and Output 12/07/16 12/07/16 12/08/16 15:00 23:00 07:00 Intake Total 200 ml 400 ml 200 ml Balance 200 ml 400 ml 200 ml JONATHAN KIRK MD Dec 08, 2016 12:06
--- NOTE | 2016-12-08 13:31 | PDOC ---
PULMONARY PROGRESS NOTES Subjective PT NOT MORE SOA Vitals Vital Signs Date Time Temp Pulse Resp B/P Pulse Ox O2 Delivery O2 Flow Rate FiO2 12/08/16 08:48 Nasal Cannula 2.0 12/08/16 08:05 97.5 70 24 156/75 97 97.5 ROS: No Nausea, No Chest Pain, No Abdominal Pain, No Increase Cough General: Alert, No acute distress Lungs: Crackles Cardiovascular: S1, S2 Abdomen: Soft Neuro Exam: Alert Extremities: No Edema Skin: Warm Labs Laboratory Tests Test 12/07/16 05:00 12/08/16 04:00 White Blood Count 11.0x10^3/uL (4.0-11.0) 9.1x10^3/uL (4.0-11.0) Red Blood Count 2.68x10^6/uL (3.50-5.40) 2.49x10^6/uL (3.50-5.40) Hemoglobin 8.5g/dL (12.0-15.5) 8.0g/dL (12.0-15.5) Hematocrit 25.1% (36.0-47.0) 24.5% (36.0-47.0) Mean Corpuscular Volume 94fL (79-100) 98fL (79-100) Mean Corpuscular Hemoglobin 32pg (25-35) 32pg (25-35) Mean Corpuscular Hemoglobin Concent 34g/dL (31-37) 33g/dL (31-37) Red Cell Distribution Width 16.7% (11.5-14.5) 18.0% (11.5-14.5) Platelet Count 54x10^3/uL (140-400) 55x10^3/uL (140-400) Neutrophils (%) (Auto) 85% (31-73) Lymphocytes (%) (Auto) 5% (24-48) Monocytes (%) (Auto) 9% (0-9) Eosinophils (%) (Auto) 1% (0-3) Basophils (%) (Auto) 0% (0-3) Neutrophils # (Auto) 9.4x10^3uL (1.8-7.7) Lymphocytes # (Auto) 0.6x10^3/uL (1.0-4.8) Monocytes # (Auto) 1.0x10^3/uL (0.0-1.1) Eosinophils # (Auto) 0.1x10^3/uL (0.0-0.7) Basophils # (Auto) 0.0x10^3/uL (0.0-0.2) Sodium Level 143mmol/L (136-145) 144mmol/L (136-145) Potassium Level 3.4mmol/L (3.5-5.1) 3.6mmol/L (3.5-5.1) Chloride Level 102mmol/L (98-107) 103mmol/L (98-107) Carbon Dioxide Level 35mmol/L (21-32) 29mmol/L (21-32) Anion Gap 6 (6-14) 12 (6-14) Blood Urea Nitrogen 28mg/dL (7-20) 38mg/dL (7-20) Creatinine 3.0mg/dL (0.6-1.0) 4.0mg/dL (0.6-1.0) Estimated GFR (Cockcroft-Gault) 17.2 12.3 Glucose Level 106mg/dL (70-99) 82mg/dL (70-99) Calcium Level 7.7mg/dL (8.5-10.1) 7.5mg/dL (8.5-10.1) Laboratory Tests Test 12/08/16 04:00 White Blood Count 9.1x10^3/uL (4.0-11.0) Red Blood Count 2.49x10^6/uL (3.50-5.40) Hemoglobin 8.0g/dL (12.0-15.5) Hematocrit 24.5% (36.0-47.0) Mean Corpuscular Volume 98fL (79-100) Mean Corpuscular Hemoglobin 32pg (25-35) Mean Corpuscular Hemoglobin Concent 33g/dL (31-37) Red Cell Distribution Width 18.0% (11.5-14.5) Platelet Count 55x10^3/uL (140-400) Sodium Level 144mmol/L (136-145) Potassium Level 3.6mmol/L (3.5-5.1) Chloride Level 103mmol/L (98-107) Carbon Dioxide Level 29mmol/L (21-32) Anion Gap 12 (6-14) Blood Urea Nitrogen 38mg/dL (7-20) Creatinine 4.0mg/dL (0.6-1.0) Estimated GFR (Cockcroft-Gault) 12.3 Glucose Level 82mg/dL (70-99) Calcium Level 7.5mg/dL (8.5-10.1) Medications Active Scripts Medications Dose Route/Sig Days Date Category Levaquin (Levofloxacin) 500 Mg Tablet 500 Mg PO Q48H 09/30/16 Rx Lisinopril 10 Mg Tablet 10 Mg PO DAILY 30 07/06/16 Rx Hydrocodone-Apap 7.5-325 (Hydrocodone Bit/Acetaminophen) 1 Each Tablet 1 Tab PO PRN Q4HRS PRN 14 07/06/16 Rx Flector (Diclofenac Epolamine) 1 Each Patch.td12 1 Patch TD BID 30 07/06/16 Rx Aranesp Syringe (Darbepoetin Apolinar In Polysorbat) 60 Mcg/0.3 Ml Disp.syrin 60 Mcg SQ WEEKLYHS 30 07/06/16 Rx Furosemide 80 Mg Tablet 80 Mg PO TID 30 07/06/16 Rx Lorazepam 1 Mg Tablet 1 Mg PO PRN Q6HRS PRN 07/02/16 Reported Renvela (Sevelamer Carbonate) 800 Mg Tablet 2 Tab PO TID 07/02/16 Reported Loperamide (Loperamide Hcl) 2 Mg Capsule 2 Mg PO PRN Q15MIN PRN 30 06/09/16 Rx Isosorbide Mononitrate Er (Isosorbide Mononitrate) 30 Mg Tab.er.24h 30 Mg PO DAILY 30 06/09/16 Rx Maren-Bid Caplet (Acidoph/L.bulg/Bif.b/S.thermop) 1 Each Tablet 1 Tab PO TIDWMEALS 30 06/09/16 Rx Lidocaine-Prilocaine Cream (Lidocaine/Prilocaine) 30 Gm Cream..g. 1 Oniel TP UD 06/04/16 Reported Dicyclomine Hcl 20 Mg Tablet 1 Tab PO TID PRN 06/04/16 Reported Clonidine Hcl 0.3 Mg Tablet 0.3 Mg PO TID 06/04/16 Reported Amlodipine Besylate 10 Mg Tablet 10 Mg PO HS 06/04/16 Reported Renal Caps Softgel (Folic Acid/Vitamin B Comp W-C) 1 Mg Capsule 1 Cap PO DAILY 01/16/16 Reported Advair 250-50 Diskus (Fluticasone/Salmeterol) 1 Each Disk.w.dev 2 Puff IH DAILY 01/16/16 Reported Proair Hfa Inhaler (Albuterol Sulfate) 8.5 Gm Hfa.aer.ad 2 Puff INH PRN Q6HRS PRN 01/16/16 Reported Acyclovir 200 Mg Capsule 200 Mg PO BID 01/16/16 Reported Paroxetine Hcl 20 Mg Tablet 20 Mg PO QHS 05/09/15 Reported Nighttime Sleep Aid (Diphenhydramine Hcl) 50 Mg Capsule 50 Mg PO QHS 05/09/15 Reported Ondansetron Hcl 8 Mg Tablet 8 Mg PO BID PRN 05/09/14 Reported Methocarbamol 750 Mg Tablet 1,500 Mg PO QID PRN 05/09/14 Reported Tylenol Extra Strength (Acetaminophen) 500 Mg Tablet 500 Mg PO Q6HRS PRN 05/09/14 Reported Claritin (Loratadine) 10 Mg Capsule 10 Mg PO HS 05/09/14 Reported Comments cxr reviewed. There is less left pleural fluid than previously consistent with the interval thoracentesis. Impression . 1. ACUTE/CHRONIC RESP FAILURE MULTIFACTORIAL 2. ACUTE GI BLEED S/P EMBOLIZATION 3. A/C DIASTOLIC/SYST HEART FAILURE 4. Chronic respiratory failure, on home oxygen. 5. History of multiple myeloma, currently on chemo. 6. End-stage renal disease, on hemodialysis. 7. PLEURAL EFFUSION S/P THORACENTESIS Plan . RESP STATUS IS COMPENSATED FOLLOW GI INPUT FOLLOW CYTOLOGY ON PLEURAL FLUID CONTINUE THE SAME DIET PER EDIN BONE MD Dec 08, 2016 13:31
[2016-12-08] MEDS: FOLIC/VIT B COMP W-C (RENAL) TABLET. PO SCH (14:50)
[2016-12-08] MEDS: ASPIRIN ENTERIC COATED 81 MG TABLET.DR. PO SCH (14:56)
[2016-12-08] MEDS: ISOSORBIDE MONONITRATE ER 30 MG TAB.ER.24H PO SCH (14:56)
[2016-12-08 15:00] VITALS: BP 137/52
[2016-12-08] MEDS: ACYCLOVIR 200 MG CAPSULE PO SCH ×2 (15:00→20:51)
[2016-12-08] MEDS: ONDANSETRON PF 4 MG/2 ML VIAL. IV PRN (15:00)
[2016-12-08] MEDS ORDERED: ALTEPLASE 2 MG VIAL INT CAT ONE (16:15)
[2016-12-08 19:00] VITALS: BP 155/81
[2016-12-08] MEDS: CETIRIZINE HCL 10 MG TABLET PO SCH (20:51)
[2016-12-08] MEDS: MONTELUKAST SODIUM 10 MG TABLET. PO SCH (20:51)
[2016-12-08] MEDS: PAROXETINE 20 MG TABLET. PO SCH (20:51)
[2016-12-08] MEDS: AMLODIPINE BESYLATE 10 MG TABLET PO SCH (20:53)
[2016-12-08] MEDS: DIPHENHYDRAMINE HCL 25 MG CAPSULE PO SCH (20:53)
[2016-12-08] MEDS: ONDANSETRON ODT 4 MG TAB.RAPDIS PO PRN (20:59)
[2016-12-08 23:00] VITALS: BP 147/60
[2016-12-09 03:00] VITALS: BP 137/61
[2016-12-09] MEDS: PANTOPRAZOLE SODIUM IV 80 MG in IV NORMAL SALINE 100ML 100 ML IV SCH ×4 (03:07→23:59)
[2016-12-09] MEDS: HYDROCODONE/APAP 7.5/325MG TABLET. PO PRN ×3 (03:07→19:46)
[2016-12-09] MEDS: LEVOTHYROXINE 100 MCG TABLET PO SCH (06:19)
[2016-12-09 06:50] LABS: BASO % 0 % (0-3); EOS % 1 % (0-3); HEMATOCRIT 24.1 % (36.0-47.0); HEMOGLOBIN 7.8 g/dL (12.0-15.5); LYMPH # 0.6 x10^3/uL (1.0-4.8); LYMPH % 9 % (24-48); MEAN CORPUSCULAR HEMOGLOBIN 32 pg (25-35); MEAN CORPUSCULAR HGB CONC 32 g/dL (31-37); MEAN CORPUSCULAR VOLUME 99 fL (79-100); MONO % 10 % (0-9); NEUT % 80 % (31-73); PLATELET COUNT 69 x10^3/uL (140-400); RED BLOOD COUNT 2.44 x10^6/uL (3.50-5.40); RED CELL DISTRIBUTION WIDTH 22.1 % (11.5-14.5); WHITE BLOOD COUNT 6.7 x10^3/uL (4.0-11.0)
[2016-12-09 07:00] VITALS: BP 156/73
[2016-12-09 07:15] LABS: CREATININE 3.3 mg/dL (0.6-1.0); GFR 15.4
[2016-12-09 07:17] LABS: POTASSIUM 4.1 mmol/L (3.5-5.1)
[2016-12-09] MEDS: BUDESONIDE 0.5 MG/2 ML NEBU NEB SCH ×2 (07:47→20:09)
--- NOTE | 2016-12-09 08:15 | PDOC ---
PULMONARY PROGRESS NOTES Subjective on 02, sob, better. has runny nose, no pain, has occ cough Vitals Vital Signs Date Time Temp Pulse Resp B/P Pulse Ox O2 Delivery O2 Flow Rate FiO2 12/09/16 07:49 98 Nasal Cannula 2.0 12/09/16 04:06 17 12/09/16 03:00 97.9 66 137/61 97.9 Comments ros as mentioned as above other sys otherwise neg ROS: No Nausea, No Chest Pain, No Abdominal Pain, No Increase Cough General: Alert, No acute distress Lungs: Crackles Cardiovascular: S1, S2 Abdomen: Soft Neuro Exam: Alert Extremities: No Edema Skin: Warm Labs Laboratory Tests Test 12/08/16 04:00 12/09/16 06:20 White Blood Count 9.1x10^3/uL (4.0-11.0) 6.7x10^3/uL (4.0-11.0) Red Blood Count 2.49x10^6/uL (3.50-5.40) 2.44x10^6/uL (3.50-5.40) Hemoglobin 8.0g/dL (12.0-15.5) 7.8g/dL (12.0-15.5) Hematocrit 24.5% (36.0-47.0) 24.1% (36.0-47.0) Mean Corpuscular Volume 98fL (79-100) 99fL (79-100) Mean Corpuscular Hemoglobin 32pg (25-35) 32pg (25-35) Mean Corpuscular Hemoglobin Concent 33g/dL (31-37) 32g/dL (31-37) Red Cell Distribution Width 18.0% (11.5-14.5) 22.1% (11.5-14.5) Platelet Count 55x10^3/uL (140-400) 69x10^3/uL (140-400) Sodium Level 144mmol/L (136-145) 141mmol/L (136-145) Potassium Level 3.6mmol/L (3.5-5.1) 4.1mmol/L (3.5-5.1) Chloride Level 103mmol/L (98-107) 104mmol/L (98-107) Carbon Dioxide Level 29mmol/L (21-32) 29mmol/L (21-32) Anion Gap 12 (6-14) 8 (6-14) Blood Urea Nitrogen 38mg/dL (7-20) 24mg/dL (7-20) Creatinine 4.0mg/dL (0.6-1.0) 3.3mg/dL (0.6-1.0) Estimated GFR (Cockcroft-Gault) 12.3 15.4 Glucose Level 82mg/dL (70-99) 85mg/dL (70-99) Calcium Level 7.5mg/dL (8.5-10.1) 8.0mg/dL (8.5-10.1) Neutrophils (%) (Auto) 80% (31-73) Lymphocytes (%) (Auto) 9% (24-48) Monocytes (%) (Auto) 10% (0-9) Eosinophils (%) (Auto) 1% (0-3) Basophils (%) (Auto) 0% (0-3) Neutrophils # (Auto) 5.4x10^3uL (1.8-7.7) Lymphocytes # (Auto) 0.6x10^3/uL (1.0-4.8) Monocytes # (Auto) 0.7x10^3/uL (0.0-1.1) Eosinophils # (Auto) 0.0x10^3/uL (0.0-0.7) Basophils # (Auto) 0.0x10^3/uL (0.0-0.2) Laboratory Tests Test 12/09/16 06:20 White Blood Count 6.7x10^3/uL (4.0-11.0) Red Blood Count 2.44x10^6/uL (3.50-5.40) Hemoglobin 7.8g/dL (12.0-15.5) Hematocrit 24.1% (36.0-47.0) Mean Corpuscular Volume 99fL (79-100) Mean Corpuscular Hemoglobin 32pg (25-35) Mean Corpuscular Hemoglobin Concent 32g/dL (31-37) Red Cell Distribution Width 22.1% (11.5-14.5) Platelet Count 69x10^3/uL (140-400) Neutrophils (%) (Auto) 80% (31-73) Lymphocytes (%) (Auto) 9% (24-48) Monocytes (%) (Auto) 10% (0-9) Eosinophils (%) (Auto) 1% (0-3) Basophils (%) (Auto) 0% (0-3) Neutrophils # (Auto) 5.4x10^3uL (1.8-7.7) Lymphocytes # (Auto) 0.6x10^3/uL (1.0-4.8) Monocytes # (Auto) 0.7x10^3/uL (0.0-1.1) Eosinophils # (Auto) 0.0x10^3/uL (0.0-0.7) Basophils # (Auto) 0.0x10^3/uL (0.0-0.2) Sodium Level 141mmol/L (136-145) Potassium Level 4.1mmol/L (3.5-5.1) Chloride Level 104mmol/L (98-107) Carbon Dioxide Level 29mmol/L (21-32) Anion Gap 8 (6-14) Blood Urea Nitrogen 24mg/dL (7-20) Creatinine 3.3mg/dL (0.6-1.0) Estimated GFR (Cockcroft-Gault) 15.4 Glucose Level 85mg/dL (70-99) Calcium Level 8.0mg/dL (8.5-10.1) Medications Active Scripts Medications Dose Route/Sig Days Date Category Levaquin (Levofloxacin) 500 Mg Tablet 500 Mg PO Q48H 09/30/16 Rx Lisinopril 10 Mg Tablet 10 Mg PO DAILY 30 07/06/16 Rx Hydrocodone-Apap 7.5-325 (Hydrocodone Bit/Acetaminophen) 1 Each Tablet 1 Tab PO PRN Q4HRS PRN 14 07/06/16 Rx Flector (Diclofenac Epolamine) 1 Each Patch.td12 1 Patch TD BID 30 07/06/16 Rx Aranesp Syringe (Darbepoetin Apolinar In Polysorbat) 60 Mcg/0.3 Ml Disp.syrin 60 Mcg SQ WEEKLYHS 30 07/06/16 Rx Furosemide 80 Mg Tablet 80 Mg PO TID 30 07/06/16 Rx Lorazepam 1 Mg Tablet 1 Mg PO PRN Q6HRS PRN 07/02/16 Reported Renvela (Sevelamer Carbonate) 800 Mg Tablet 2 Tab PO TID 07/02/16 Reported Loperamide (Loperamide Hcl) 2 Mg Capsule 2 Mg PO PRN Q15MIN PRN 30 06/09/16 Rx Isosorbide Mononitrate Er (Isosorbide Mononitrate) 30 Mg Tab.er.24h 30 Mg PO DAILY 30 06/09/16 Rx Maren-Bid Caplet (Acidoph/L.bulg/Bif.b/S.thermop) 1 Each Tablet 1 Tab PO TIDWMEALS 30 06/09/16 Rx Lidocaine-Prilocaine Cream (Lidocaine/Prilocaine) 30 Gm Cream..g. 1 Oniel TP UD 06/04/16 Reported Dicyclomine Hcl 20 Mg Tablet 1 Tab PO TID PRN 06/04/16 Reported Clonidine Hcl 0.3 Mg Tablet 0.3 Mg PO TID 06/04/16 Reported Amlodipine Besylate 10 Mg Tablet 10 Mg PO HS 06/04/16 Reported Renal Caps Softgel (Folic Acid/Vitamin B Comp W-C) 1 Mg Capsule 1 Cap PO DAILY 01/16/16 Reported Advair 250-50 Diskus (Fluticasone/Salmeterol) 1 Each Disk.w.dev 2 Puff IH DAILY 01/16/16 Reported Proair Hfa Inhaler (Albuterol Sulfate) 8.5 Gm Hfa.aer.ad 2 Puff INH PRN Q6HRS PRN 01/16/16 Reported Acyclovir 200 Mg Capsule 200 Mg PO BID 01/16/16 Reported Paroxetine Hcl 20 Mg Tablet 20 Mg PO QHS 05/09/15 Reported Nighttime Sleep Aid (Diphenhydramine Hcl) 50 Mg Capsule 50 Mg PO QHS 05/09/15 Reported Ondansetron Hcl 8 Mg Tablet 8 Mg PO BID PRN 05/09/14 Reported Methocarbamol 750 Mg Tablet 1,500 Mg PO QID PRN 05/09/14 Reported Tylenol Extra Strength (Acetaminophen) 500 Mg Tablet 500 Mg PO Q6HRS PRN 05/09/14 Reported Claritin (Loratadine) 10 Mg Capsule 10 Mg PO HS 05/09/14 Reported Comments cxr reviewed. There is less left pleural fluid than previously consistent with the interval thoracentesis. Impression . 1. ACUTE/CHRONIC RESP FAILURE MULTIFACTORIAL 2. ACUTE GI BLEED S/P EMBOLIZATION 3. A/C DIASTOLIC/SYST HEART FAILURE 4. Chronic respiratory failure, on home oxygen. 5. History of multiple myeloma, currently on chemo. 6. End-stage renal disease, on hemodialysis. 7. PLEURAL EFFUSION S/P THORACENTESIS 8. allergic rhinitis Plan . RESP STATUS IS COMPENSATED FOLLOW GI INPUT FOLLOW CYTOLOGY ON PLEURAL FLUID CONTINUE THE SAME DIET PER GI 02 titration, is on home o2 increase activity add ARIK Bernstein MD Dec 09, 2016 08:15
[2016-12-09] MEDS: FOLIC/VIT B COMP W-C (RENAL) TABLET. PO SCH (08:28)
[2016-12-09] MEDS: LACTOBACILLUS ACIDOPH & BULGAR 1 TABLET. PO SCH ×3 (08:28→17:00)
[2016-12-09] MEDS: SEVELAMER CARBONATE 800 MG TABLET. PO SCH ×3 (08:28→17:00)
[2016-12-09] MEDS: CARVEDILOL 12.5 MG TABLET PO SCH ×2 (08:28→17:41)
[2016-12-09] MEDS: ASPIRIN ENTERIC COATED 81 MG TABLET.DR. PO SCH (08:28)
[2016-12-09] MEDS: ACYCLOVIR 200 MG CAPSULE PO SCH ×2 (08:30→20:40)
[2016-12-09] MEDS: LISINOPRIL 10 MG TABLET PO SCH (08:30)
[2016-12-09] MEDS: FUROSEMIDE 80 MG TABLET PO SCH ×3 (08:30→17:41)
[2016-12-09] MEDS: HYDRALAZINE 50 MG TABLET PO SCH ×3 (08:31→20:39)
[2016-12-09] MEDS: ISOSORBIDE MONONITRATE ER 30 MG TAB.ER.24H PO SCH (08:32)
[2016-12-09] MEDS: ONDANSETRON PF 4 MG/2 ML VIAL. IV PRN ×2 (08:33→19:44)
[2016-12-09] MEDS: MORPHINE SULFATE 2 MG/ML DISP.SYRIN. IV PRN (08:34)
--- NOTE | 2016-12-09 10:52 | PDOC ---
Subjective: Subjective: Tolerating diet. No further dark stools Objective: Vital Signs: Vital Signs Date Time Temp Pulse Resp B/P Pulse Ox O2 Delivery O2 Flow Rate FiO2 12/09/16 08:34 Nasal Cannula 2.0 12/09/16 08:32 71 156/73 12/09/16 07:49 98 12/09/16 07:00 97.9 18 97.9 Labs: Laboratory Tests Test 12/09/16 06:20 White Blood Count 6.7x10^3/uL (4.0-11.0) Red Blood Count 2.44x10^6/uL (3.50-5.40) Hemoglobin 7.8g/dL (12.0-15.5) Hematocrit 24.1% (36.0-47.0) Mean Corpuscular Volume 99fL (79-100) Mean Corpuscular Hemoglobin 32pg (25-35) Mean Corpuscular Hemoglobin Concent 32g/dL (31-37) Red Cell Distribution Width 22.1% (11.5-14.5) Platelet Count 69x10^3/uL (140-400) Neutrophils (%) (Auto) 80% (31-73) Lymphocytes (%) (Auto) 9% (24-48) Monocytes (%) (Auto) 10% (0-9) Eosinophils (%) (Auto) 1% (0-3) Basophils (%) (Auto) 0% (0-3) Neutrophils # (Auto) 5.4x10^3uL (1.8-7.7) Lymphocytes # (Auto) 0.6x10^3/uL (1.0-4.8) Monocytes # (Auto) 0.7x10^3/uL (0.0-1.1) Eosinophils # (Auto) 0.0x10^3/uL (0.0-0.7) Basophils # (Auto) 0.0x10^3/uL (0.0-0.2) Sodium Level 141mmol/L (136-145) Potassium Level 4.1mmol/L (3.5-5.1) Chloride Level 104mmol/L (98-107) Carbon Dioxide Level 29mmol/L (21-32) Anion Gap 8 (6-14) Blood Urea Nitrogen 24mg/dL (7-20) Creatinine 3.3mg/dL (0.6-1.0) Estimated GFR (Cockcroft-Gault) 15.4 Glucose Level 85mg/dL (70-99) Calcium Level 8.0mg/dL (8.5-10.1) Physical Exam: Physical Exam: PE: GEN: NAD LUNGS: CTAB HEART: RRR ABD: S/ND, epigastric tenderness NEURO/PSYCH: A & O 3 Assessment & Plan: Assessment : Melena, anemia -Hgb drifting now 7.8, dark stools ongoing (she says slowing) -on PPI -interval CTA as above w/ possible interval bleeding Gastric ulcer, h/o gastric bypass -s/p cautery/endo-clip/epi inj 12/03 -CTA neg for bleeding; s/p celiac + LGA injections, empiric embolization of LGA branches 12/04 -surgery following. May need surgical revision at [facility] per Dr Quintero Plan: She wants to d/c tomorrow. If Hgb stable, and she tolerates PO. okay from GI standpoint Problems: IVETTE VARGAS MD Dec 09, 2016 10:52
[2016-12-09 10:54] VITALS: BP 145/70
--- NOTE | 2016-12-09 10:56 | PDOC ---
SUBJECTIVE Subjective Pt states that she is feeling much better today. Still having abdominal pain but it is better. Breathing better after dialysis and no longer taking in as much liquid. No stools over the past 24 hours, just passing gas. OBJECTIVE Vital Signs Vital Signs Date Time Temp Pulse Resp B/P Pulse Ox O2 Delivery O2 Flow Rate FiO2 12/09/16 08:34 Nasal Cannula 2.0 12/09/16 08:32 71 156/73 12/09/16 08:31 71 156/73 12/09/16 08:30 71 156/73 12/09/16 08:28 71 156/73 12/09/16 08:00 Nasal Cannula 2.0 12/09/16 07:49 98 Nasal Cannula 2.0 12/09/16 07:00 97.9 71 18 156/73 96 Nasal Cannula 2.0 97.9 12/09/16 04:06 17 98 Nasal Cannula 2.0 12/09/16 03:07 18 98 Nasal Cannula 2.0 12/09/16 03:00 97.9 66 22 137/61 99 Nasal Cannula 2.0 97.9 12/08/16 23:00 97.9 72 22 147/60 98 Nasal Cannula 2.0 97.9 12/08/16 21:00 18 93 Nasal Cannula 2.0 12/08/16 20:53 74 130/64 12/08/16 20:52 74 130/64 12/08/16 19:54 Nasal Cannula 2.0 12/08/16 19:00 98.2 78 22 155/81 93 Nasal Cannula 2.0 98.2 12/08/16 18:10 75 184/84 12/08/16 15:03 97 Nasal Cannula 2.0 12/08/16 15:00 97.7 82 22 137/52 97 Nasal Cannula 2.0 97.7 12/08/16 14:57 74 184/84 12/08/16 14:56 74 184/84 I & O Intake and Output 12/09/16 07:00 Intake Total 1040 ml Output Total 425 ml Balance 615 ml Intake Oral 1040 ml Output Urine Total 425 ml PHYSICAL EXAM Physical Exam GEN: NAD, AOx3 HEENT: MMM, EOMI, no scleral icterus/injection Cardiac: RRR, no M/R/G Lungs: regular breathing rate and effort, decreased on right lower aspect, slight rhonchi on ONELIA Abd: soft, NTTP Ext: no erythema/edema LE bilaterally Neuro: CN2-12 GI Psych: normal mood and affect ASSESSMENT/PLAN Assessment/Plan Pt is a 41yo CF initially admitted for acute on chronic CHF, found later to have GI bleed 1)Acute on chronic CHF- s/p thoracentesis and additional HD sessions. Pt is currently on Lasix 80mg TID, will be getting HD today. Pulmonary following. 2)Hx of multiple myeloma- pt in remission. Continued on Acyclovir. Heme/onc following. 3)Acute on chronic anemia- 2/2 GI bleed, s/p cauterization/endo-clip/epi injection and 4 units PRBC, initially. Hb increased from 4.1 to 10.7 and then dropped back down. Pt is now s/p gelfoam embolization of left gastric artery and 3 more units PRBC and 2 units FFP. Hb has slowly drifted to o 7.8 from 10, no more stools over the last 24H. GI and surgery Following. If pt were to continue to bleed, likely transfer to [facility], otherwise pt is interested in possible discharge tomorrow or Sunday. 4)HTN- moderately controlled. Currently receiving Carvedilol 25mg BID, Hydralazine 50mg TID, Clonidine patch, Norvasc 10mg QHS, Lisionpril 10mg, Imdur 30mg. Will have Hydralazine IV prn. 5)ESRD- Renal following, pt on HD M/W/. Electrolytes stable 6)Hypothyroidism- TSH elevated at 13.304, currently receiving Levothyroxine 100mcg 7)Anxiety/Depression- pt currently receiving Paroxetine 20mg and Lorazepam 8)Asthma- pt continued on Pulmicort BID and Albuterol prn 9)Leukocytosis- resolved. Blood cultures negative. Urine cx +Strep A; on PCN. 10)PEM- severe 11)Thrombocytopenia- s/p 2 units FFP. Platelets were decreasing, now stable at 69. Problems: COMMENT Lab Laboratory Tests Test 12/09/16 06:20 White Blood Count 6.7x10^3/uL (4.0-11.0) Red Blood Count 2.44x10^6/uL (3.50-5.40) Hemoglobin 7.8g/dL (12.0-15.5) Hematocrit 24.1% (36.0-47.0) Mean Corpuscular Volume 99fL (79-100) Mean Corpuscular Hemoglobin 32pg (25-35) Mean Corpuscular Hemoglobin Concent 32g/dL (31-37) Red Cell Distribution Width 22.1% (11.5-14.5) Platelet Count 69x10^3/uL (140-400) Neutrophils (%) (Auto) 80% (31-73) Lymphocytes (%) (Auto) 9% (24-48) Monocytes (%) (Auto) 10% (0-9) Eosinophils (%) (Auto) 1% (0-3) Basophils (%) (Auto) 0% (0-3) Neutrophils # (Auto) 5.4x10^3uL (1.8-7.7) Lymphocytes # (Auto) 0.6x10^3/uL (1.0-4.8) Monocytes # (Auto) 0.7x10^3/uL (0.0-1.1) Eosinophils # (Auto) 0.0x10^3/uL (0.0-0.7) Basophils # (Auto) 0.0x10^3/uL (0.0-0.2) Sodium Level 141mmol/L (136-145) Potassium Level 4.1mmol/L (3.5-5.1) Chloride Level 104mmol/L (98-107) Carbon Dioxide Level 29mmol/L (21-32) Anion Gap 8 (6-14) Blood Urea Nitrogen 24mg/dL (7-20) Creatinine 3.3mg/dL (0.6-1.0) Estimated GFR (Cockcroft-Gault) 15.4 Glucose Level 85mg/dL (70-99) Calcium Level 8.0mg/dL (8.5-10.1) GERI FIERRO MD Dec 09, 2016 10:56
--- NOTE | 2016-12-09 11:57 | PDOC ---
PROGRESS NOTES Subjective Subjective pt feeling better today, says "no further bleeding" Objective Objective Vital Signs Date Time Temp Pulse Resp B/P Pulse Ox O2 Delivery O2 Flow Rate FiO2 12/09/16 10:54 97.9 71 18 145/70 96 Nasal Cannula 2.0 97.9 Intake and Output 12/09/16 07:00 Intake Total 1040 ml Output Total 425 ml Balance 615 ml Intake Oral 1040 ml Output Urine Total 425 ml Physical Exam Abdomen: Soft, No tenderness General: Alert, Oriented X3, Cooperative Psych/Mental Status: Mental status NL Skin: No rashes, No breakdown Assessment Assessment Problems Medical Problems: (1) Accelerated hypertension Status: Acute (2) Acute on chronic diastolic congestive heart failure due to valvular disease Status: Acute (3) Bilateral pleural effusion Status: Acute (4) Cardiomyopathy Status: Acute (5) COPD with acute exacerbation Status: Acute (6) End stage renal disease Status: Acute Plan Plan of Care No new surgical recs, poss discharge tomorrow Comment Review of Relevant I have reviewed the following items ernesto (where applicable) has been applied. Labs Laboratory Tests Test 12/08/16 04:00 12/09/16 06:20 White Blood Count 9.1x10^3/uL (4.0-11.0) 6.7x10^3/uL (4.0-11.0) Red Blood Count 2.49x10^6/uL (3.50-5.40) 2.44x10^6/uL (3.50-5.40) Hemoglobin 8.0g/dL (12.0-15.5) 7.8g/dL (12.0-15.5) Hematocrit 24.5% (36.0-47.0) 24.1% (36.0-47.0) Mean Corpuscular Volume 98fL (79-100) 99fL (79-100) Mean Corpuscular Hemoglobin 32pg (25-35) 32pg (25-35) Mean Corpuscular Hemoglobin Concent 33g/dL (31-37) 32g/dL (31-37) Red Cell Distribution Width 18.0% (11.5-14.5) 22.1% (11.5-14.5) Platelet Count 55x10^3/uL (140-400) 69x10^3/uL (140-400) Sodium Level 144mmol/L (136-145) 141mmol/L (136-145) Potassium Level 3.6mmol/L (3.5-5.1) 4.1mmol/L (3.5-5.1) Chloride Level 103mmol/L (98-107) 104mmol/L (98-107) Carbon Dioxide Level 29mmol/L (21-32) 29mmol/L (21-32) Anion Gap 12 (6-14) 8 (6-14) Blood Urea Nitrogen 38mg/dL (7-20) 24mg/dL (7-20) Creatinine 4.0mg/dL (0.6-1.0) 3.3mg/dL (0.6-1.0) Estimated GFR (Cockcroft-Gault) 12.3 15.4 Glucose Level 82mg/dL (70-99) 85mg/dL (70-99) Calcium Level 7.5mg/dL (8.5-10.1) 8.0mg/dL (8.5-10.1) Neutrophils (%) (Auto) 80% (31-73) Lymphocytes (%) (Auto) 9% (24-48) Monocytes (%) (Auto) 10% (0-9) Eosinophils (%) (Auto) 1% (0-3) Basophils (%) (Auto) 0% (0-3) Neutrophils # (Auto) 5.4x10^3uL (1.8-7.7) Lymphocytes # (Auto) 0.6x10^3/uL (1.0-4.8) Monocytes # (Auto) 0.7x10^3/uL (0.0-1.1) Eosinophils # (Auto) 0.0x10^3/uL (0.0-0.7) Basophils # (Auto) 0.0x10^3/uL (0.0-0.2) Laboratory Tests Test 12/09/16 06:20 White Blood Count 6.7x10^3/uL (4.0-11.0) Red Blood Count 2.44x10^6/uL (3.50-5.40) Hemoglobin 7.8g/dL (12.0-15.5) Hematocrit 24.1% (36.0-47.0) Mean Corpuscular Volume 99fL (79-100) Mean Corpuscular Hemoglobin 32pg (25-35) Mean Corpuscular Hemoglobin Concent 32g/dL (31-37) Red Cell Distribution Width 22.1% (11.5-14.5) Platelet Count 69x10^3/uL (140-400) Neutrophils (%) (Auto) 80% (31-73) Lymphocytes (%) (Auto) 9% (24-48) Monocytes (%) (Auto) 10% (0-9) Eosinophils (%) (Auto) 1% (0-3) Basophils (%) (Auto) 0% (0-3) Neutrophils # (Auto) 5.4x10^3uL (1.8-7.7) Lymphocytes # (Auto) 0.6x10^3/uL (1.0-4.8) Monocytes # (Auto) 0.7x10^3/uL (0.0-1.1) Eosinophils # (Auto) 0.0x10^3/uL (0.0-0.7) Basophils # (Auto) 0.0x10^3/uL (0.0-0.2) Sodium Level 141mmol/L (136-145) Potassium Level 4.1mmol/L (3.5-5.1) Chloride Level 104mmol/L (98-107) Carbon Dioxide Level 29mmol/L (21-32) Anion Gap 8 (6-14) Blood Urea Nitrogen 24mg/dL (7-20) Creatinine 3.3mg/dL (0.6-1.0) Estimated GFR (Cockcroft-Gault) 15.4 Glucose Level 85mg/dL (70-99) Calcium Level 8.0mg/dL (8.5-10.1) Microbiology 12/05/16 Blood Culture - Preliminary, Resulted NO GROWTH AFTER 3 DAYS 11/29/16 Gram Stain - Final, Complete 12/06/16 Urine Culture - Preliminary, Resulted 12/06/16 Urine Culture Result 1 (TENISHA) - Preliminary, Resulted Medications Current Medications Sodium Chloride (Iv Sodium Chloride 0.9% 1000ml Bag) 1,000 ml @ 100 mls/hr Q10H IV Last administered on 11/27/16t 19:49; Start 11/27/16 at 19:01; Stop at 05:00; Status DC Albuterol/ Ipratropium (Duoneb) 6 ml 1X ONCE NEB Last administered on 19:10; Start 11/27/16 at 19:30; Stop 11/27/16 at 19:31; Status DC Methylprednisolone Sodium Succinate (Solu-Medrol 125mg Vial) 125 mg 1X ONCE IV Last administered on 11/27/16 19:49; Start 11/27/16 at 19:30; Stop 11/27/16 at 19:31; Status DC Acetaminophen/ Hydrocodone Bitart (Lortab 7.5/325) 1 tab 1X ONCE PO Last administered on 11/27/16 20:29; Start 11/27/16 at 20:15; Stop 11/27/16 at 20:17; Status DC Lisinopril (Prinivil) 10 mg 1X ONCE PO Last administered on 11/27/16 21:09; Start 11/27/16 at 21:15; Stop 11/27/16 at 21:16; Status DC Amlodipine Besylate (Norvasc) 10 mg 1X ONCE PO Last administered on 11/27/16 21:08; Start 11/27/16 at 21:15; Stop 11/27/16 at 21:16; Status DC Clonidine HCl (Catapres) 0.3 mg 1X ONCE PO Last administered on 11/27/16 21:09 ; Start 11/27/16 at 21:15; Stop 11/27/16 at 21:16; Status DC Ondansetron HCl (Zofran) 4 mg PRN Q8HRS PRN IV NAUSEA/VOMITING Last administered on 11/28/16 18:24; Start 11/27/16 at 22:30; Stop 11/28/16 at 22:29; Status DC Fentanyl Citrate (Fentanyl 2ml Vial) 50 mcg PRN Q2HR PRN IV SEVERE PAIN Last administered on 11/28/16 21:31; Start 11/27/16 at 22:30; Stop 11/28/16 at 22:29; Status DC Acetaminophen (Tylenol) 650 mg PRN Q4HRS PRN PO FEVER; Start 11/27/16 at 22:30; Stop 11/28/16 at 22:29; Status DC Albuterol/ Ipratropium (Duoneb) 3 ml RTQID NEB Last administered on 11/29/16 06 :06; Start 11/28/16 at 08:00; Stop 11/29/16 at 07:59; Status DC Methylprednisolone Sodium Succinate (Solu-Medrol 40mg Vial) 60 mg Q6HRS IV Last administered on 12/03/16 00:24; Start 11/28/16 at 00:00; Stop 12/03/16 at 13:20; Status DC Diphenhydramine HCl (Benadryl) 25 mg 1X ONCE IVP Last administered on 23:30; Start 11/27/16 at 23:00; Stop 11/27/16 at 23:01; Status DC Diphenhydramine HCl (Benadryl) 25 mg PRN Q6HRS PRN IVP ITCHING Last administered on 12/02/16 02:37; Start 11/28/16 at 02:00 Albuterol Sulfate (Ventolin Neb Soln) 2.5 mg PRN Q4HRS PRN NEB SHORTNESS OF BREATH Last administered on 12/08/16 05:20; Start 11/28/16 at 05:15 Acetaminophen (Tylenol) 500 mg PRN Q6HRS PRN PO PAIN Last administered on 06:13; Start 11/28/16 at 07:15 Lactobacillus Acidophilus (Bacid, Maren-Bid) 1 tab TIDWMEALS PO Last administered on 12/09/16 08:28; Start 11/28/16 at 08:00 Acyclovir (Zovirax) 200 mg BID PO Last administered on 12/09/16 08:30; Start 11/28/16 at 09:00 Amlodipine Besylate (Norvasc) 10 mg HS PO Last administered on 12/08/16 20:53 ; Start 11/28/16 at 21:00 Clonidine HCl (Catapres) 0.3 mg TID PO Last administered on 11/28/16 20:54; Start 11/28/16 at 09:00; Stop 11/29/16 at 14:02; Status DC Darbepoetin Apolinar (Aranesp) 60 mcg Tu SQ Last administered on 12/05/16 21:26; Start 11/28/16 at 21:00 Diclofenac Epolamine (Flector) 1 patch BID TD ; Start 11/28/16 at 09:00; Stop 11/28/16 at 14:38; Status DC Furosemide (Lasix) 80 mg TID@,,17 PO Last administered on 12/09/16 08:30; Start 11/28/16 at 09:00 Acetaminophen/ Hydrocodone Bitart (Lortab 7.5/325) 1 tab PRN Q4HRS PRN PO SEVERE PAIN Last administered on 12/09/16 03:07; Start 11/28/16 at 07:15 Isosorbide Mononitrate (Imdur) 30 mg DAILY PO Last administered on 12/09/16 08 :32; Start 11/28/16 at 09:00 Lidocaine/ Prilocaine (Emla) 1 oniel PRN QID PRN TP pain; Start 11/28/16 at 07:15 Lisinopril (Prinivil) 10 mg DAILY PO Last administered on 12/09/16 08:30; Start 11/28/16 at 09:00 Loperamide HCl (Imodium) 2 mg PRN Q15MIN PRN PO DIARRHEA; Start 11/28/16 at 07: 15 Lorazepam (Ativan) 1 mg PRN Q6HRS PRN PO VOMITING Last administered on 21:06; Start 11/28/16 at 07:15 Methocarbamol (Robaxin) 1,500 mg PRN QID PRN PO SEVERE PAIN Last administered on 12/08/16 20:59; Start 11/28/16 at 07:15 Paroxetine HCl (Paxil) 20 mg QHS PO Last administered on 12/08/16 20:51; Start 11/28/16 at 21:00 Sevelamer Carbonate (Renvela) 800 mg TIDWMEALS PO Last administered on 08:28; Start 11/28/16 at 08:00 Dicyclomine HCl (Bentyl) 20 mg PRN TID PRN PO Stomach pain Last administered on 11/28/16 09:02; Start 11/28/16 at 07:45 Diphenhydramine HCl (Benadryl) 50 mg QHS PO Last administered on 12/08/16 20: 53; Start 11/28/16 at 21:00 Non-Formulary Medication 2 puff DAILY IH ; Start 11/28/16 at 09:00; Stop 11/28/16 at 09:00; Status DC Folic Acid/ Multivitamins/Vit B12 (Nephro-Sheree) 1 tab DAILY PO Last administered on 12/09/16 08:28; Start 11/28/16 at 09:00 Cetirizine HCl (Zyrtec) 10 mg QHS PO Last administered on 12/08/16 20:51; Start 11/28/16 at 21:00 Non-Formulary Medication 8 mg PRN BID PRN PO NAUSEA/VOMITING; Start 11/28/16 at 07:15; Stop 11/30/16 at 10:18; Status DC Budesonide 0.5 mg 0.5 mg RTBID NEB Last administered on 12/09/16 07:47; Start 11/28/16 at 08:00 Magnesium Sulfate/ Dextrose (Magnesium Sulfate PREMIX 2GM) 50 ml @ 25 mls/hr PRN DAILY PRN IV for Mag < 1.7 on am labs; Start 11/28/16 at 10:45 Hydralazine HCl (Apresoline) 50 mg TID PO ; Start 11/28/16 at 14:00; Stop at 15:49; Status DC Hydralazine HCl (Apresoline) 10 mg PRN Q4HRS PRN IVP ELEVATED BP, SEE COMMENTS Last administered on 12/05/16 00:42; Start 11/28/16 at 12:00 Hydralazine HCl 25 mg 25 mg TID PO Last administered on 11/30/16 14:14; Start 11/28/16 at 21:00; Stop 11/30/16 at 15:13; Status DC Sodium Chloride (Iv Sodium Chloride 0.9% 1000ml Bag) 1,000 ml @ 1,000 mls/hr Q1H PRN IV hypotension; Start 11/29/16 at 08:51; Stop 11/29/16 at 14:50; Status DC Diphenhydramine HCl (Benadryl) 25 mg 1X PRN PRN IV ITCHING; Start 11/29/16 at 09 :00; Stop 11/30/16 at 08:59; Status DC Diphenhydramine HCl (Benadryl) 25 mg 1X PRN PRN IV ITCHING; Start 11/29/16 at 09 :00; Stop 11/30/16 at 08:59; Status DC Info (PHARMACY MONITORING -- do not chart) 1 each PRN DAILY PRN MC SEE COMMENTS ; Start 11/29/16 at 09:00; Stop 12/05/16 at 08:43; Status DC Info (PHARMACY MONITORING -- do not chart) 1 each PRN DAILY PRN MC SEE COMMENTS ; Start 11/29/16 at 09:00; Status UNV Fentanyl Citrate (Fentanyl 2ml Vial) 25 mcg PRN Q5MIN PRN IV MILD PAIN; Start 11/29/16 at 09:30; Stop 11/30/16 at 03:58; Status DC Fentanyl Citrate 50 mcg 50 mcg PRN Q5MIN PRN IV MODERATE PAIN Last administered on 11/29/16 17:38; Start 11/29/16 at 09:30; Stop 11/30/16 at 03:58; Status DC Lactated Ringer's (Iv Lactated Ringers) 1,000 ml @ 0 mls/hr Q0M IV ; Start 11/29 at 09:16; Stop 11/29/16 at 21:15; Status DC Lidocaine HCl 2 ml 1X PRN PRN ID IV START; Start 11/29/16 at 09:30; Stop at 03:58; Status DC Prochlorperazine Edisylate (Compazine) 5 mg PACU PRN PRN IV NAUSEA; Start at 09:30; Stop 11/30/16 at 03:58; Status DC Fentanyl Citrate (Fentanyl 2ml Vial) 50 mcg PRN Q2HR PRN IV PAIN Last administered on 12/01/16 13:31; Start 11/29/16 at 10:30; Stop 12/01/16 at 17:25 ; Status DC Ondansetron HCl (Zofran) 4 mg PRN Q6HRS PRN IV NAUSEA/VOMITING Last administered on 11/29/16 10:59; Start 11/29/16 at 10:30; Stop 11/29/16 at 14:41; Status DC Lidocaine/Sodium Bicarbonate (Buffered Lidocaine 1%) 3 ml 1X ONCE IJ Last administered on 11/29/16 14:32; Start 11/29/16 at 12:45; Stop 11/29/16 at 12:46; Status DC Bupivacaine HCl/ Epinephrine Bitart (Sensorcain-Mpf Epi 0.5%-[id number]) 30 ml STK -MED ONCE .ROUTE Last administered on 11/29/16 16:47; Start 11/29/16 at 13:57; Stop 11/29/16 at 13:58; Status DC Carvedilol (Coreg) 12.5 mg BIDWMEALS PO Last administered on 11/30/16 09:29; Start 11/29/16 at 17:00; Stop 11/30/16 at 15:13; Status DC Clonidine HCl 1 patch 1 patch WEEKLY TD Last administered on 12/06/16 10:51; Start 11/29/16 at 14:30 Propofol (Diprivan) 20 ml @ As Directed STK-MED ONCE IV ; Start 11/29/16 at 14:14 ; Stop 11/29/16 at 14:15; Status DC Fentanyl Citrate (Fentanyl 2ml Vial) 100 mcg STK-MED ONCE .ROUTE ; Start at 14:14; Stop 11/29/16 at 14:15; Status DC Ondansetron HCl (Zofran) 4 mg STK-MED ONCE .ROUTE ; Start 11/29/16 at 14:14; Stop 11/29/16 at 14:15; Status DC Ondansetron HCl (Zofran) 8 mg PRN Q6HRS PRN IV NAUSEA/VOMITING Last administered on 12/05/16 03:28; Start 11/29/16 at 14:45; Stop 12/05/16 at 08:51 ; Status DC Midazolam HCl (Versed) 2 mg STK-MED ONCE .ROUTE ; Start 11/29/16 at 16:44; Stop 11/29/16 at 16:45; Status DC Pantoprazole Sodium (Protonix) 40 mg DAILYAC PO Last administered on 12/02/16 10:37; Start 11/30/16 at 09:30; Stop 12/03/16 at 07:43; Status DC Ondansetron HCl (Zofran Odt) 8 mg PRN BID PRN PO NAUSEA/VOMITING Last administered on 12/08/16 20:59; Start 11/30/16 at 10:30 Carvedilol (Coreg) 25 mg BIDWMEALS PO Last administered on 12/09/16 08:28; Start 11/30/16 at 17:00 Hydralazine HCl (Apresoline) 50 mg TID PO Last administered on 12/09/16 08:31 ; Start 11/30/16 at 15:30 Aspirin (Ecotrin) 81 mg [id number] PO Last administered on 12/09/16 08:28; Start 11/30/16 at 16:00 Regadenoson (Lexiscan) 0.4 mg 1X ONCE IV Last administered on 12/01/16 09:28 ; Start 12/01/16 at 08:15; Stop 12/01/16 at 08:16; Status DC Levothyroxine Sodium 100 mcg 100 mcg DAILY07 PO Last administered on 12/09/16 06:19; Start 12/01/16 at 14:00 Sodium Chloride 1,000 ml @ 1,000 mls/hr Q1H PRN IV hypotension; Start 12/01/16 at 15:26; Stop 12/01/16 at 21:00; Status DC Sodium Chloride (Iv Sodium Chloride 0.9% 1000ml Bag) 1,000 ml @ 400 mls/hr Q2H30M PRN IV PATENCY; Start 12/01/16 at 15:26; Stop 12/01/16 at 21:00; Status DC Info (PHARMACY MONITORING -- do not chart) 1 each PRN DAILY PRN MC SEE COMMENTS ; Start 12/01/16 at 15:30; Status UNV Info (PHARMACY MONITORING -- do not chart) 1 each PRN DAILY PRN MC SEE COMMENTS ; Start 12/01/16 at 15:30; Status UNV Fentanyl Citrate (Fentanyl 2ml Vial) 50 mcg PRN Q4HRS PRN IV PAIN Last administered on 12/08/16 04:42; Start 12/01/16 at 17:30 Montelukast Sodium (Singulair) 10 mg QHS PO Last administered on 12/08/16 20: 51; Start 12/02/16 at 21:00 Pantoprazole Sodium 40 mg 40 mg DAILYAC IVP ; Start 12/03/16 at 08:00; Stop 10/07 at 08:00; Status DC Pantoprazole Sodium 80 mg/ Sodium Chloride 100 ml @ 10 mls/hr Q10H IV Last administered on 12/09/16 03:08; Start 12/03/16 at 08:00 Propofol (Diprivan) 20 ml @ As Directed STK-MED ONCE IV ; Start 12/03/16 at 09: 23; Stop 12/03/16 at 09:24; Status DC Lidocaine HCl (Lidocaine Pf 2% Vial) 5 ml STK-MED ONCE .ROUTE ; Start 12/03/16 at 09:24; Stop 12/03/16 at 09:25; Status DC Ephedrine Sulfate 50 mg STK-MED ONCE IV ; Start 12/03/16 at 09:24; Stop at 09:25; Status DC Morphine Sulfate 2 mg 2 mg PRN Q2HR PRN IV PAIN Last administered on 12/09/16 08:34; Start 12/03/16 at 10:30 Sodium Chloride 1,000 ml @ 1,000 mls/hr Q1H PRN IV hypotension; Start 12/03/16 at 17:19; Stop 12/03/16 at 23:18; Status DC Sodium Chloride (Iv Sodium Chloride 0.9% 1000ml Bag) 1,000 ml @ 400 mls/hr Q2H30M PRN IV PATENCY; Start 12/03/16 at 17:19; Stop 12/04/16 at 05:18; Status DC Info (PHARMACY MONITORING -- do not chart) 1 each PRN DAILY PRN MC SEE COMMENTS ; Start 12/03/16 at 17:30; Status UNV Info 1 each 1 each PRN DAILY PRN MC SEE COMMENTS; Start 12/03/16 at 17:30; Status UNV Amino Acids/ Glycerin/ Electrolytes (Procalamine) 1,000 ml @ 80 mls/hr [id number] IV Last administered on 12/03/16 21:05; Start 12/03/16 at 19:45; Stop at 13:05; Status DC Prochlorperazine (Compazine) 25 mg PRN Q12HR PRN DE NAUSEA/VOMITING; Start 10/07 at 22:00 Lidocaine HCl (Xylocaine-Mpf 1% Vial) 2 ml STK-MED ONCE .ROUTE ; Start 12/04/16 at 14:48; Stop 12/04/16 at 14:49; Status DC Iohexol (Omnipaque 350 Mg/ml) 90 ml 1X ONCE IV Last administered on 12/04/16 16:17; Start 12/04/16 at 16:00; Stop 12/04/16 at 16:01; Status DC Info (Do NOT chart on this entry -- for MONITORING) 1 each PRN DAILY PRN MC SEE COMMENTS; Start 12/04/16 at 16:00; Stop 12/06/16 at 15:59; Status DC Gelatin (Gelfoam Size 12-7mm) 1 each STK-MED ONCE .ROUTE ; Start 12/04/16 at 17 :09; Stop 12/04/16 at 17:10; Status DC Midazolam HCl (Versed) 2 mg STK-MED ONCE .ROUTE ; Start 12/04/16 at 17:10; Stop 12/04/16 at 17:11; Status DC Heparin Sodium/ Sodium Chloride 1,000 unit 1X ONCE IART Last administered on 20:00; Start 12/04/16 at 17:15; Stop 12/04/16 at 17:16; Status DC Lidocaine/Sodium Bicarbonate (Buffered Lidocaine 1%) 20 ml 1X ONCE IJ Last administered on 12/04/16 20:00; Start 12/04/16 at 17:15; Stop 12/04/16 at 17:16 ; Status DC Midazolam HCl (Versed) 2 mg 1X ONCE IV Last administered on 12/04/16 20:02; Start 12/04/16 at 17:15; Stop 12/04/16 at 17:16; Status DC Fentanyl Citrate (Fentanyl 2ml Vial) 100 mcg 1X ONCE IV Last administered on 20:02; Start 12/04/16 at 17:15; Stop 12/04/16 at 17:16; Status DC Iohexol (Omnipaque 300 Mg/ml) 100 ml 1X ONCE IART Last administered on 20:03; Start 12/04/16 at 17:15; Stop 12/04/16 at 17:16; Status DC Info 1 each 1 each PRN DAILY PRN MC SEE COMMENTS; Start 12/04/16 at 17:15; Stop 12/06/16 at 17:14; Status Cancel Heparin Sodium/ Sodium Chloride 1,500 ml @ As Directed STK-MED ONCE .ROUTE ; Start 12/04/16 at 17:13; Stop 12/04/16 at 17:14; Status DC Diphenhydramine HCl (Benadryl) 25 mg 1X ONCE IVP Last administered on 20:01; Start 12/04/16 at 18:15; Stop 12/04/16 at 18:16; Status DC Info (PHARMACY MONITORING -- do not chart) 1 each PRN DAILY PRN MC SEE COMMENTS ; Start 12/04/16 at 21:45 Ondansetron HCl (Zofran) 8 mg PRN Q4HRS PRN IV NAUSEA/VOMITING Last administered on 12/09/16 08:33; Start 12/05/16 at 09:00 Alteplase, Recombinant (Cathflo) 2 mg 1X ONCE INT CAT Last administered on 03:14; Start 12/07/16 at 03:15; Stop 12/07/16 at 03:16; Status DC Alteplase, Recombinant (Cathflo) 2 mg 1X ONCE INT CAT ; Start 12/07/16 at 04:30 ; Stop 12/07/16 at 04:31; Status DC Phenyleph/Shark Oil/Min Oil/Petrol (Preparation H) 1 oniel BID PRN RC RECTAL PAIN Last administered on 12/07/16 09:35; Start 12/07/16 at 08:15 Iohexol 90 ml 90 ml 1X ONCE IV ; Start 12/07/16 at 13:00; Stop 12/07/16 at 13: 11; Status DC Sodium Chloride (Iv Sodium Chloride 0.9% 1000ml Bag) 1,000 ml @ 1,000 mls/hr Q1H PRN IV hypotension; Start 12/08/16 at 09:04; Stop 12/08/16 at 15:03; Status DC Diphenhydramine HCl (Benadryl) 25 mg 1X PRN PRN IV ITCHING; Start 12/08/16 at 09:15; Stop 12/09/16 at 09:14; Status DC Diphenhydramine HCl 25 mg 25 mg 1X PRN PRN IV ITCHING; Start 12/08/16 at 09:15 ; Stop 12/09/16 at 09:14; Status DC Sodium Chloride (Iv Sodium Chloride 0.9% 1000ml Bag) 1,000 ml @ 400 mls/hr Q2H30M PRN IV PATENCY; Start 12/08/16 at 09:04; Stop 12/08/16 at 21:03; Status DC Info (PHARMACY MONITORING -- do not chart) 1 each PRN DAILY PRN MC SEE COMMENTS ; Start 12/08/16 at 09:15; Status UNV Lidocaine HCl (Xylocaine-Mpf 1% Vial) 2 ml 1X ONCE INJ Last administered on t 09:49; Start 12/08/16 at 09:15; Stop 12/08/16 at 09:23; Status DC Alteplase, Recombinant (Cathflo) 2 mg 1X ONCE INT CAT Last administered on t 16:14; Start 12/08/16 at 16:15; Stop 12/08/16 at 16:18; Status DC Montelukast Sodium (Singulair) 10 mg QHS PO ; Start 12/09/16 at 21:00 Penicillin V Potassium (Veetid) 500 mg Q8HRS PO ; Start 12/09/16 at 14:00 Active Scripts Active Levaquin (Levofloxacin) 500 Mg Tablet 500 Mg PO Q48H Lisinopril 10 Mg Tablet 10 Mg PO DAILY 30 Days Hydrocodone-Apap 7.5-325 (Hydrocodone Bit/Acetaminophen) 1 Each Tablet 1 Tab PO PRN Q4HRS PRN 14 Days Flector (Diclofenac Epolamine) 1 Each Patch.td12 1 Patch TD BID 30 Days Aranesp Syringe (Darbepoetin Apolinar In Polysorbat) 60 Mcg/0.3 Ml Disp.syrin 60 Mcg SQ WEEKLYHS 30 Days Furosemide 80 Mg Tablet 80 Mg PO TID 30 Days Loperamide (Loperamide Hcl) 2 Mg Capsule 2 Mg PO PRN Q15MIN PRN 30 Days Isosorbide Mononitrate Er (Isosorbide Mononitrate) 30 Mg Tab.er.24h 30 Mg PO DAILY 30 Days Maren-Bid Caplet (Acidoph/L.bulg/Bif.b/S.thermop) 1 Each Tablet 1 Tab PO TIDWMEALS 30 Days Reported Lorazepam 1 Mg Tablet 1 Mg PO PRN Q6HRS PRN Renvela (Sevelamer Carbonate) 800 Mg Tablet 2 Tab PO TID Lidocaine-Prilocaine Cream (Lidocaine/Prilocaine) 30 Gm Cream..g. 1 Oniel TP UD Dicyclomine Hcl 20 Mg Tablet 1 Tab PO TID PRN Clonidine Hcl 0.3 Mg Tablet 0.3 Mg PO TID Amlodipine Besylate 10 Mg Tablet 10 Mg PO HS Renal Caps Softgel (Folic Acid/Vitamin B Comp W-C) 1 Mg Capsule 1 Cap PO DAILY Advair 250-50 Diskus (Fluticasone/Salmeterol) 1 Each Disk.w.dev 2 Puff IH DAILY Proair Hfa Inhaler (Albuterol Sulfate) 8.5 Gm Hfa.aer.ad 2 Puff INH PRN Q6HRS PRN Acyclovir 200 Mg Capsule 200 Mg PO BID Paroxetine Hcl 20 Mg Tablet 20 Mg PO QHS Nighttime Sleep Aid (Diphenhydramine Hcl) 50 Mg Capsule 50 Mg PO QHS Ondansetron Hcl 8 Mg Tablet 8 Mg PO BID PRN Methocarbamol 750 Mg Tablet 1,500 Mg PO QID PRN Tylenol Extra Strength (Acetaminophen) 500 Mg Tablet 500 Mg PO Q6HRS PRN Claritin (Loratadine) 10 Mg Capsule 10 Mg PO HS Vitals/I & O Vital Sign - Last 24 Hours 12/08/16 12/08/16 12/08/16 12/08/16 14:56 14:57 15:00 15:03 Temp 97.7 97.7 Pulse 74 74 82 Resp 22 B/P 184/84 184/84 137/52 Pulse Ox 97 97 O2 Delivery Nasal Cannula Nasal Cannula O2 Flow Rate 2.0 2.0 12/08/16 12/08/16 12/08/16 12/08/16 18:10 19:00 19:54 20:52 Temp 98.2 98.2 Pulse 75 78 74 Resp 22 B/P 184/84 155/81 130/64 Pulse Ox 93 O2 Delivery Nasal Cannula Nasal Cannula O2 Flow Rate 2.0 2.0 12/08/16 12/08/16 12/08/16 12/09/16 20:53 21:00 23:00 03:00 Temp 97.9 97.9 97.9 97.9 Pulse 74 72 66 Resp 18 22 22 B/P 130/64 147/60 137/61 Pulse Ox 93 98 99 O2 Delivery Nasal Cannula Nasal Cannula Nasal Cannula O2 Flow Rate 2.0 2.0 2.0 12/09/16 12/09/16 12/09/16 12/09/16 03:07 04:06 07:00 07:49 Temp 97.9 97.9 Pulse 71 Resp 18 17 18 B/P 156/73 Pulse Ox 98 98 96 98 O2 Delivery Nasal Cannula Nasal Cannula Nasal Cannula Nasal Cannula O2 Flow Rate 2.0 2.0 2.0 2.0 12/09/16 12/09/16 12/09/16 12/09/16 08:00 08:28 08:30 08:31 Pulse 71 71 71 B/P 156/73 156/73 156/73 O2 Delivery Nasal Cannula O2 Flow Rate 2.0 12/09/16 12/09/16 12/09/16 12/09/16 08:32 08:34 09:04 10:54 Temp 97.9 97.9 Pulse 71 71 Resp 18 B/P 156/73 145/70 Pulse Ox 96 O2 Delivery Nasal Cannula Nasal Cannula Nasal Cannula O2 Flow Rate 2.0 2.0 2.0 Intake and Output 12/08/16 12/08/16 12/09/16 15:00 23:00 07:00 Intake Total 360 ml 440 ml 240 ml Output Total 125 ml 300 ml Balance 235 ml 440 ml -60 ml JESE REYNA MD Dec 09, 2016 11:57
[2016-12-09] MEDS: METHOCARBAMOL 750 MG TABLET PO PRN ×2 (12:27→19:52)
--- NOTE | 2016-12-09 13:59 | PDOC ---
SUBJECTIVE ROS ESRD DOing well, not having any more Melena per pt CVS: no Orthopnea, no CP RESP: no SOB, no [place] [facility]: no Nausea, no Vomiting : no Dysuria, no Urgency OBJECTIVE Vital Signs Vital Signs Date Time Temp Pulse Resp B/P Pulse Ox O2 Delivery O2 Flow Rate FiO2 12/09/16 12:20 Nasal Cannula 2.0 12/09/16 10:54 97.9 71 18 145/70 96 97.9 I & 0 Intake and Output 12/09/16 07:00 Intake Total 1040 ml Output Total 425 ml Balance 615 ml Intake Oral 1040 ml Output Urine Total 425 ml PHYSICAL EXAM Physical Exam General Appearance: Awake Alert Oriented x 3 In no resp Distress Eyes: VIsion Unchanged Conjunctiva Normal EN: No EN Drainage Mucous Memb. moist Neck: no JVD min JVP Supple no Thyromegaly CVS: S1 S2 soft Murmur No Gallop No Rub Tr Edema Resp: few Gigi basal Rales no Rhonchi no Acc. Muscle use GI: BS +ve NO Bruit Non Tender Non Distended : no CVA tenderness; no Suprapubic Tenderness DIAGNOSIS/ASSESSMENT ESRD: Current fluid and E-lyte status does not necessitate emergent need for dialysis. Will re-evaluate for dialysis in the am and continue on MWF schedule. GI BLeed - s/p Gastric Artery embolization - no further Melena reported; Call ed OP HD unit to avoid Heparin x 6 weeks Anemia: Started on Epogen; Transfuse with next HD as needed if hgb < 7. ( not active on txp list) HTN: reval after fluid status optimization. Current BP meds reviewed. See orders for changes. ABI: Bone & Mineral: Follow Phos and alter binder regimen - improving with current regimen, OP Compliance with same is debatable Skin changes / Hardening - Skin Bx to r/o Calciphylaxis - pending path Previous Fluid overload - now better today clinically - challenge Dry wt as betzaida as OP Discussed Plan of Care and prognosis etc. at length with pt at bedside COMMENT/RELEVANT DATA Meds Current Medications Medications (Trade) Dose Ordered Sig/Jamila Start Time Stop Time Status Last Admin Dose Admin Acetaminophen (Tylenol) 500 mg PRN Q6HRS PRN 11/28/16 07:15 11/30/16 06:13 500 MG Acetaminophen/ Hydrocodone Bitart (Lortab 7.5/325) 1 tab PRN Q4HRS PRN 11/28/16 07:15 12/09/16 12:20 1 TAB Acyclovir (Zovirax) 200 mg BID 11/28/16 09:00 12/09/16 08:30 200 MG Albuterol Sulfate (Ventolin Neb Soln) 2.5 mg PRN Q4HRS PRN 11/28/16 05:15 12/08/16 05:20 2.5 MG Albuterol/ Ipratropium (Duoneb) 3 ml RTQID 11/28/16 08:00 11/29/16 07:59 DC 11/29/16 06:06 3 ML Alteplase, Recombinant (Cathflo) 2 mg 1X ONCE 12/08/16 16:15 12/08/16 16:18 DC 12/08/16 16:14 2 MG Amino Acids/ Glycerin/ Electrolytes (Procalamine) 1,000 ml @ 80 mls/hr [id number] 12/03/16 19:45 12/05/16 13:05 DC 12/03/16 21:05 80 MLS/HR Amlodipine Besylate (Norvasc) 10 mg HS 11/28/16 21:00 12/08/16 20:53 10 MG Aspirin (Ecotrin) 81 mg [id number] 11/30/16 16:00 12/09/16 08:28 81 MG Budesonide 0.5 mg 0.5 mg RTBID 11/28/16 08:00 12/09/16 07:47 0.5 MG Bupivacaine HCl/ Epinephrine Bitart (Sensorcain-Mpf Epi 0.5%-[id number]) 30 ml STK-MED ONCE 11/29/16 13:57 11/29/16 13:58 DC 11/29/16 16:47 9 ML Carvedilol (Coreg) 25 mg BIDWMEALS 11/30/16 17:00 12/09/16 08:28 25 MG Cetirizine HCl (Zyrtec) 10 mg QHS 11/28/16 21:00 12/08/16 20:51 10 MG Clonidine HCl (Catapres Tts-2) 1 patch WEEKLY 11/29/16 14:30 12/06/16 10:51 1 PATCH Clonidine HCl (Catapres) 0.3 mg TID 11/28/16 09:00 11/29/16 14:02 DC 11/28/16 20:54 0.3 MG Darbepoetin Apolinar (Aranesp) 60 mcg Tu 11/28/16 21:00 12/05/16 21:26 60 MCG Diclofenac Epolamine (Flector) 1 patch BID 11/28/16 09:00 11/28/16 14:38 DC Dicyclomine HCl (Bentyl) 20 mg PRN TID PRN 11/28/16 07:45 11/28/16 09:02 20 MG Diphenhydramine HCl (Benadryl) 25 mg 1X PRN PRN 12/08/16 09:15 12/09/16 09:14 DC Diphenhydramine HCl 25 mg 25 mg 1X PRN PRN 12/08/16 09:15 12/09/16 09:14 DC Ephedrine Sulfate 50 mg STK-MED ONCE 12/03/16 09:24 12/03/16 09:25 DC Fentanyl Citrate (Fentanyl 2ml Vial) 100 mcg 1X ONCE 12/04/16 17:15 12/04/16 17:16 DC 12/04/16 20:02 100 MCG Fentanyl Citrate 50 mcg 50 mcg PRN Q5MIN PRN 11/29/16 09:30 11/30/16 03:58 DC 11/29/16 17:38 50 MCG Folic Acid/ Multivitamins/Vit B12 (Nephro-Sheree) 1 tab DAILY 11/28/16 09:00 12/09/16 08:28 1 TAB Furosemide (Lasix) 80 mg TID@11/28/16 09:00 12/09/16 12:19 80 MG Gelatin (Gelfoam Size 12-7mm) 1 each STK-MED ONCE 12/04/16 17:09 12/04/16 17:10 DC Heparin Sodium/ Sodium Chloride 1,500 ml @ As Directed STK-MED ONCE 12/04/16 17:13 12/04/16 17:14 DC Hydralazine HCl (Apresoline) 50 mg TID 11/30/16 15:30 12/09/16 08:31 50 MG Info (Do NOT chart on this entry -- for MONITORING) 1 each PRN DAILY PRN 12/04/16 16:00 12/06/16 15:59 DC Info (PHARMACY MONITORING -- do not chart) 1 each PRN DAILY PRN 12/08/16 09:15 UNV Info 1 each 1 each PRN DAILY PRN 12/04/16 17:15 12/06/16 17:14 Cancel Iohexol (Omnipaque 300 Mg/ml) 100 ml 1X ONCE 12/04/16 17:15 12/04/16 17:16 DC 12/04/16 20:03 180 ML Iohexol (Omnipaque 350 Mg/ml) 90 ml 1X ONCE 12/07/16 13:00 12/07/16 13:11 DC Isosorbide Mononitrate (Imdur) 30 mg DAILY 11/28/16 09:00 12/09/16 08:32 30 MG Lactated Ringer's (Iv Lactated Ringers) 1,000 ml @ 0 mls/hr Q0M 11/29/16 09:16 11/29/16 21:15 DC Lactobacillus Acidophilus (Bacid, Maren-Bid) 1 tab TIDWMEALS 11/28/16 08:00 12/09/16 12:19 1 TAB Levothyroxine Sodium (Synthroid) 100 mcg DAILY07 12/01/16 14:00 12/09/16 06:19 100 MCG Lidocaine HCl (Lidocaine Pf 2% Vial) 5 ml STK-MED ONCE 12/03/16 09:24 12/03/16 09:25 DC Lidocaine HCl (Xylocaine-Mpf 1% Vial) 2 ml 1X ONCE 12/08/16 09:15 12/08/16 09:23 DC 12/08/16 09:49 2 ML Lidocaine/ Prilocaine (Emla) 1 nirav PRN QID PRN 11/28/16 07:15 Lidocaine/Sodium Bicarbonate (Buffered Lidocaine 1%) 20 ml 1X ONCE 12/04/16 17:15 12/04/16 17:16 DC 12/04/16 20:00 8 ML Lisinopril (Prinivil) 10 mg DAILY 11/28/16 09:00 12/09/16 08:30 10 MG Loperamide HCl (Imodium) 2 mg PRN Q15MIN PRN 11/28/16 07:15 Lorazepam (Ativan) 1 mg PRN Q6HRS PRN 11/28/16 07:15 12/03/16 21:06 1 MG Magnesium Sulfate/ Dextrose (Magnesium Sulfate PREMIX 2GM) 50 ml @ 25 mls/hr PRN DAILY PRN 11/28/16 10:45 Methocarbamol (Robaxin) 1,500 mg PRN QID PRN 11/28/16 07:15 12/09/16 12:27 1,500 MG Methylprednisolone Sodium Succinate (Solu-Medrol 40mg Vial) 60 mg Q6HRS 11/28/16 00:00 12/03/16 13:20 DC 12/03/16 00:24 60 MG Methylprednisolone Sodium Succinate (Solu-Medrol 125mg Vial) 125 mg 1X ONCE 11/27/16 19:30 11/27/16 19:31 DC 11/27/16 19:49 125 MG Midazolam HCl (Versed) 2 mg 1X ONCE 12/04/16 17:15 12/04/16 17:16 DC 12/04/16 20:02 4 MG Montelukast Sodium (Singulair) 10 mg QHS 12/09/16 21:00 Morphine Sulfate 2 mg 2 mg PRN Q2HR PRN 12/03/16 10:30 12/09/16 08:34 2 MG Non-Formulary Medication 8 mg PRN BID PRN 11/28/16 07:15 11/30/16 10:18 DC Ondansetron HCl (Zofran Odt) 8 mg PRN BID PRN 11/30/16 10:30 12/08/16 20:59 8 MG Ondansetron HCl (Zofran) 8 mg PRN Q4HRS PRN 12/05/16 09:00 12/09/16 08:33 8 MG Pantoprazole Sodium (Protonix) 40 mg DAILYAC 11/30/16 09:30 12/03/16 07:43 DC 12/02/16 10:37 40 MG Pantoprazole Sodium 40 mg 40 mg DAILYAC 12/03/16 08:00 12/03/16 08:00 DC Pantoprazole Sodium 80 mg/ Sodium Chloride 100 ml @ 10 mls/hr Q10H 12/03/16 08:00 12/09/16 03:08 10 MLS/HR Paroxetine HCl (Paxil) 20 mg QHS 11/28/16 21:00 12/08/16 20:51 20 MG Penicillin V Potassium (Veetid) 500 mg Q8HRS 12/09/16 14:00 Phenyleph/Shark Oil/Min Oil/Petrol (Preparation H) 1 nirav BID PRN 12/07/16 08:15 12/07/16 09:35 1 NIRAV Prochlorperazine (Compazine) 25 mg PRN Q12HR PRN 12/03/16 22:00 Prochlorperazine Edisylate (Compazine) 5 mg PACU PRN PRN 11/29/16 09:30 11/30/16 03:58 DC Propofol (Diprivan) 20 ml @ As Directed STK-MED ONCE 12/03/16 09:23 12/03/16 09:24 DC Regadenoson (Lexiscan) 0.4 mg 1X ONCE 12/01/16 08:15 12/01/16 08:16 DC 12/01/16 09:28 0.4 MG Sevelamer Carbonate (Renvela) 800 mg TIDWMEALS 11/28/16 08:00 12/09/16 12:19 800 MG Sodium Chloride (Iv Sodium Chloride 0.9% 1000ml Bag) 1,000 ml @ 400 mls/hr Q2H30M PRN 12/08/16 09:04 12/08/16 21:03 DC Lab Laboratory Tests Test 12/09/16 06:20 White Blood Count 6.7x10^3/uL (4.0-11.0) Red Blood Count 2.44x10^6/uL (3.50-5.40) Hemoglobin 7.8g/dL (12.0-15.5) Hematocrit 24.1% (36.0-47.0) Mean Corpuscular Volume 99fL (79-100) Mean Corpuscular Hemoglobin 32pg (25-35) Mean Corpuscular Hemoglobin Concent 32g/dL (31-37) Red Cell Distribution Width 22.1% (11.5-14.5) Platelet Count 69x10^3/uL (140-400) Neutrophils (%) (Auto) 80% (31-73) Lymphocytes (%) (Auto) 9% (24-48) Monocytes (%) (Auto) 10% (0-9) Eosinophils (%) (Auto) 1% (0-3) Basophils (%) (Auto) 0% (0-3) Neutrophils # (Auto) 5.4x10^3uL (1.8-7.7) Lymphocytes # (Auto) 0.6x10^3/uL (1.0-4.8) Monocytes # (Auto) 0.7x10^3/uL (0.0-1.1) Eosinophils # (Auto) 0.0x10^3/uL (0.0-0.7) Basophils # (Auto) 0.0x10^3/uL (0.0-0.2) Sodium Level 141mmol/L (136-145) Potassium Level 4.1mmol/L (3.5-5.1) Chloride Level 104mmol/L (98-107) Carbon Dioxide Level 29mmol/L (21-32) Anion Gap 8 (6-14) Blood Urea Nitrogen 24mg/dL (7-20) Creatinine 3.3mg/dL (0.6-1.0) Estimated GFR (Cockcroft-Gault) 15.4 Glucose Level 85mg/dL (70-99) Calcium Level 8.0mg/dL (8.5-10.1) MITRA TAVAREZ MD Dec 09, 2016 13:58
[2016-12-09] MEDS: PENICILLIN V K 250 MG TABLET. PO SCH ×2 (14:35→20:40)
--- NOTE | 2016-12-09 15:03 | PDOC ---
PROGRESS NOTES Subjective Subjective c/c - f/u of Multiple myeloma Objective Objective Vital Signs Date Time Temp Pulse Resp B/P Pulse Ox O2 Delivery O2 Flow Rate FiO2 12/09/16 14:36 70 140/67 12/09/16 13:20 Room Air 12/09/16 12:20 2.0 12/09/16 10:54 97.9 18 96 97.9 Intake and Output 12/09/16 07:00 Intake Total 1040 ml Output Total 425 ml Balance 615 ml Intake Oral 1040 ml Output Urine Total 425 ml Physical Exam Heart: Normal S1, Normal S2 General: Alert, Oriented X3 Lungs: Clear to auscultation Psych/Mental Status: Mental status NL Assessment Assessment Problems Medical Problems: (1) Accelerated hypertension Status: Acute (2) Acute on chronic diastolic congestive heart failure due to valvular disease Status: Acute (3) Bilateral pleural effusion Status: Acute (4) Cardiomyopathy Status: Acute (5) COPD with acute exacerbation Status: Acute (6) End stage renal disease Status: Acute A/P: 1. Multiple myeloma, currently on chemo with velcade and well controlled.. 2. Dyspnea secondary to acute on chronic congestive heart failure, I do not think it is related to velcade or MM. He myeloma is under very good control. Appreciate cardiology management. . 3. End-stage renal disease, on hemodialysis. 4. Anemia due to GI bleed, monitor Hb - EGD 12/03/16 : s/p gastric bypass gastric ulcer below GE junction S/p cautery/endo-clip/ epi injection with cessation of bleeding. Hb worse at 7.8, monitor. Bleeding resolved. 5. Thrombocytopenia - 55. Monitor. Comment Review of Relevant I have reviewed the following items ernesto (where applicable) has been applied. Labs Laboratory Tests Test 12/08/16 04:00 12/09/16 06:20 White Blood Count 9.1x10^3/uL (4.0-11.0) 6.7x10^3/uL (4.0-11.0) Red Blood Count 2.49x10^6/uL (3.50-5.40) 2.44x10^6/uL (3.50-5.40) Hemoglobin 8.0g/dL (12.0-15.5) 7.8g/dL (12.0-15.5) Hematocrit 24.5% (36.0-47.0) 24.1% (36.0-47.0) Mean Corpuscular Volume 98fL (79-100) 99fL (79-100) Mean Corpuscular Hemoglobin 32pg (25-35) 32pg (25-35) Mean Corpuscular Hemoglobin Concent 33g/dL (31-37) 32g/dL (31-37) Red Cell Distribution Width 18.0% (11.5-14.5) 22.1% (11.5-14.5) Platelet Count 55x10^3/uL (140-400) 69x10^3/uL (140-400) Sodium Level 144mmol/L (136-145) 141mmol/L (136-145) Potassium Level 3.6mmol/L (3.5-5.1) 4.1mmol/L (3.5-5.1) Chloride Level 103mmol/L (98-107) 104mmol/L (98-107) Carbon Dioxide Level 29mmol/L (21-32) 29mmol/L (21-32) Anion Gap 12 (6-14) 8 (6-14) Blood Urea Nitrogen 38mg/dL (7-20) 24mg/dL (7-20) Creatinine 4.0mg/dL (0.6-1.0) 3.3mg/dL (0.6-1.0) Estimated GFR (Cockcroft-Gault) 12.3 15.4 Glucose Level 82mg/dL (70-99) 85mg/dL (70-99) Calcium Level 7.5mg/dL (8.5-10.1) 8.0mg/dL (8.5-10.1) Neutrophils (%) (Auto) 80% (31-73) Lymphocytes (%) (Auto) 9% (24-48) Monocytes (%) (Auto) 10% (0-9) Eosinophils (%) (Auto) 1% (0-3) Basophils (%) (Auto) 0% (0-3) Neutrophils # (Auto) 5.4x10^3uL (1.8-7.7) Lymphocytes # (Auto) 0.6x10^3/uL (1.0-4.8) Monocytes # (Auto) 0.7x10^3/uL (0.0-1.1) Eosinophils # (Auto) 0.0x10^3/uL (0.0-0.7) Basophils # (Auto) 0.0x10^3/uL (0.0-0.2) Laboratory Tests Test 12/09/16 06:20 White Blood Count 6.7x10^3/uL (4.0-11.0) Red Blood Count 2.44x10^6/uL (3.50-5.40) Hemoglobin 7.8g/dL (12.0-15.5) Hematocrit 24.1% (36.0-47.0) Mean Corpuscular Volume 99fL (79-100) Mean Corpuscular Hemoglobin 32pg (25-35) Mean Corpuscular Hemoglobin Concent 32g/dL (31-37) Red Cell Distribution Width 22.1% (11.5-14.5) Platelet Count 69x10^3/uL (140-400) Neutrophils (%) (Auto) 80% (31-73) Lymphocytes (%) (Auto) 9% (24-48) Monocytes (%) (Auto) 10% (0-9) Eosinophils (%) (Auto) 1% (0-3) Basophils (%) (Auto) 0% (0-3) Neutrophils # (Auto) 5.4x10^3uL (1.8-7.7) Lymphocytes # (Auto) 0.6x10^3/uL (1.0-4.8) Monocytes # (Auto) 0.7x10^3/uL (0.0-1.1) Eosinophils # (Auto) 0.0x10^3/uL (0.0-0.7) Basophils # (Auto) 0.0x10^3/uL (0.0-0.2) Sodium Level 141mmol/L (136-145) Potassium Level 4.1mmol/L (3.5-5.1) Chloride Level 104mmol/L (98-107) Carbon Dioxide Level 29mmol/L (21-32) Anion Gap 8 (6-14) Blood Urea Nitrogen 24mg/dL (7-20) Creatinine 3.3mg/dL (0.6-1.0) Estimated GFR (Cockcroft-Gault) 15.4 Glucose Level 85mg/dL (70-99) Calcium Level 8.0mg/dL (8.5-10.1) Microbiology 12/05/16 Blood Culture - Preliminary, Resulted NO GROWTH AFTER 4 DAYS 11/29/16 Gram Stain - Final, Complete 12/06/16 Urine Culture - Final, Complete 12/06/16 Urine Culture Result 1 (TENISHA) - Final, Complete Medications Current Medications Sodium Chloride (Iv Sodium Chloride 0.9% 1000ml Bag) 1,000 ml @ 100 mls/hr Q10H IV Last administered on 11/27/16 19:49; Start 11/27/16 at 19:01; Stop at 05:00; Status DC Albuterol/ Ipratropium (Duoneb) 6 ml 1X ONCE NEB Last administered on 19:10; Start 11/27/16 at 19:30; Stop 11/27/16 at 19:31; Status DC Methylprednisolone Sodium Succinate (Solu-Medrol 125mg Vial) 125 mg 1X ONCE IV Last administered on 11/27/16 19:49; Start 11/27/16 at 19:30; Stop 11/27/16 at 19:31; Status DC Acetaminophen/ Hydrocodone Bitart (Lortab 7.5/325) 1 tab 1X ONCE PO Last administered on 11/27/16 20:29; Start 11/27/16 at 20:15; Stop 11/27/16 at 20:17; Status DC Lisinopril (Prinivil) 10 mg 1X ONCE PO Last administered on 11/27/16 21:09; Start 11/27/16 at 21:15; Stop 11/27/16 at 21:16; Status DC Amlodipine Besylate (Norvasc) 10 mg 1X ONCE PO Last administered on 11/27/16 21:08; Start 11/27/16 at 21:15; Stop 11/27/16 at 21:16; Status DC Clonidine HCl (Catapres) 0.3 mg 1X ONCE PO Last administered on 11/27/16 21:09 ; Start 11/27/16 at 21:15; Stop 11/27/16 at 21:16; Status DC Ondansetron HCl (Zofran) 4 mg PRN Q8HRS PRN IV NAUSEA/VOMITING Last administered on 11/28/16 18:24; Start 11/27/16 at 22:30; Stop 11/28/16 at 22:29; Status DC Fentanyl Citrate (Fentanyl 2ml Vial) 50 mcg PRN Q2HR PRN IV SEVERE PAIN Last administered on 11/28/16 21:31; Start 11/27/16 at 22:30; Stop 11/28/16 at 22:29; Status DC Acetaminophen (Tylenol) 650 mg PRN Q4HRS PRN PO FEVER; Start 11/27/16 at 22:30; Stop 11/28/16 at 22:29; Status DC Albuterol/ Ipratropium (Duoneb) 3 ml RTQID NEB Last administered on 11/29/16 06 :06; Start 11/28/16 at 08:00; Stop 11/29/16 at 07:59; Status DC Methylprednisolone Sodium Succinate (Solu-Medrol 40mg Vial) 60 mg Q6HRS IV Last administered on 12/03/16 00:24; Start 11/28/16 at 00:00; Stop 12/03/16 at 13:20; Status DC Diphenhydramine HCl (Benadryl) 25 mg 1X ONCE IVP Last administered on 23:30; Start 11/27/16 at 23:00; Stop 11/27/16 at 23:01; Status DC Diphenhydramine HCl (Benadryl) 25 mg PRN Q6HRS PRN IVP ITCHING Last administered on 12/02/16 02:37; Start 11/28/16 at 02:00 Albuterol Sulfate (Ventolin Neb Soln) 2.5 mg PRN Q4HRS PRN NEB SHORTNESS OF BREATH Last administered on 12/08/16 05:20; Start 11/28/16 at 05:15 Acetaminophen (Tylenol) 500 mg PRN Q6HRS PRN PO PAIN Last administered on 06:13; Start 11/28/16 at 07:15 Lactobacillus Acidophilus (Bacid, Maren-Bid) 1 tab TIDWMEALS PO Last administered on 12/09/16 12:19; Start 11/28/16 at 08:00 Acyclovir (Zovirax) 200 mg BID PO Last administered on 12/09/16 08:30; Start 11/28/16 at 09:00 Amlodipine Besylate (Norvasc) 10 mg HS PO Last administered on 12/08/16 20:53 ; Start 11/28/16 at 21:00 Clonidine HCl (Catapres) 0.3 mg TID PO Last administered on 11/28/16 20:54; Start 11/28/16 at 09:00; Stop 11/29/16 at 14:02; Status DC Darbepoetin Apolinar (Aranesp) 60 mcg Tu SQ Last administered on 12/05/16 21:26; Start 11/28/16 at 21:00 Diclofenac Epolamine (Flector) 1 patch BID TD ; Start 11/28/16 at 09:00; Stop 11/28/16 at 14:38; Status DC Furosemide (Lasix) 80 mg TID@,,17 PO Last administered on 12/09/16 12:19; Start 11/28/16 at 09:00 Acetaminophen/ Hydrocodone Bitart (Lortab 7.5/325) 1 tab PRN Q4HRS PRN PO SEVERE PAIN Last administered on 12/09/16 12:20; Start 11/28/16 at 07:15 Isosorbide Mononitrate (Imdur) 30 mg DAILY PO Last administered on 12/09/16 08 :32; Start 11/28/16 at 09:00 Lidocaine/ Prilocaine (Emla) 1 oniel PRN QID PRN TP pain; Start 11/28/16 at 07:15 Lisinopril (Prinivil) 10 mg DAILY PO Last administered on 12/09/16 08:30; Start 11/28/16 at 09:00 Loperamide HCl (Imodium) 2 mg PRN Q15MIN PRN PO DIARRHEA; Start 11/28/16 at 07: 15 Lorazepam (Ativan) 1 mg PRN Q6HRS PRN PO VOMITING Last administered on 21:06; Start 11/28/16 at 07:15 Methocarbamol (Robaxin) 1,500 mg PRN QID PRN PO SEVERE PAIN Last administered on 12/09/16 12:27; Start 11/28/16 at 07:15 Paroxetine HCl (Paxil) 20 mg QHS PO Last administered on 12/08/16 20:51; Start 11/28/16 at 21:00 Sevelamer Carbonate (Renvela) 800 mg TIDWMEALS PO Last administered on 12:19; Start 11/28/16 at 08:00 Dicyclomine HCl (Bentyl) 20 mg PRN TID PRN PO Stomach pain Last administered on 11/28/16 09:02; Start 11/28/16 at 07:45 Diphenhydramine HCl (Benadryl) 50 mg QHS PO Last administered on 12/08/16 20: 53; Start 11/28/16 at 21:00 Non-Formulary Medication 2 puff DAILY IH ; Start 11/28/16 at 09:00; Stop 11/28/16 at 09:00; Status DC Folic Acid/ Multivitamins/Vit B12 (Nephro-Sheree) 1 tab DAILY PO Last administered on 12/09/16 08:28; Start 11/28/16 at 09:00 Cetirizine HCl (Zyrtec) 10 mg QHS PO Last administered on 12/08/16 20:51; Start 11/28/16 at 21:00 Non-Formulary Medication 8 mg PRN BID PRN PO NAUSEA/VOMITING; Start 11/28/16 at 07:15; Stop 11/30/16 at 10:18; Status DC Budesonide 0.5 mg 0.5 mg RTBID NEB Last administered on 12/09/16 07:47; Start 11/28/16 at 08:00 Magnesium Sulfate/ Dextrose (Magnesium Sulfate PREMIX 2GM) 50 ml @ 25 mls/hr PRN DAILY PRN IV for Mag < 1.7 on am labs; Start 11/28/16 at 10:45 Hydralazine HCl (Apresoline) 50 mg TID PO ; Start 11/28/16 at 14:00; Stop at 15:49; Status DC Hydralazine HCl (Apresoline) 10 mg PRN Q4HRS PRN IVP ELEVATED BP, SEE COMMENTS Last administered on 12/05/16 00:42; Start 11/28/16 at 12:00 Hydralazine HCl 25 mg 25 mg TID PO Last administered on 11/30/16 14:14; Start 11/28/16 at 21:00; Stop 11/30/16 at 15:13; Status DC Sodium Chloride (Iv Sodium Chloride 0.9% 1000ml Bag) 1,000 ml @ 1,000 mls/hr Q1H PRN IV hypotension; Start 11/29/16 at 08:51; Stop 11/29/16 at 14:50; Status DC Diphenhydramine HCl (Benadryl) 25 mg 1X PRN PRN IV ITCHING; Start 11/29/16 at 09 :00; Stop 11/30/16 at 08:59; Status DC Diphenhydramine HCl (Benadryl) 25 mg 1X PRN PRN IV ITCHING; Start 11/29/16 at 09 :00; Stop 11/30/16 at 08:59; Status DC Info (PHARMACY MONITORING -- do not chart) 1 each PRN DAILY PRN MC SEE COMMENTS ; Start 11/29/16 at 09:00; Stop 12/05/16 at 08:43; Status DC Info (PHARMACY MONITORING -- do not chart) 1 each PRN DAILY PRN MC SEE COMMENTS ; Start 11/29/16 at 09:00; Status UNV Fentanyl Citrate (Fentanyl 2ml Vial) 25 mcg PRN Q5MIN PRN IV MILD PAIN; Start 11/29/16 at 09:30; Stop 11/30/16 at 03:58; Status DC Fentanyl Citrate 50 mcg 50 mcg PRN Q5MIN PRN IV MODERATE PAIN Last administered on 11/29/16 17:38; Start 11/29/16 at 09:30; Stop 11/30/16 at 03:58; Status DC Lactated Ringer's (Iv Lactated Ringers) 1,000 ml @ 0 mls/hr Q0M IV ; Start 11/29 at 09:16; Stop 11/29/16 at 21:15; Status DC Lidocaine HCl 2 ml 1X PRN PRN ID IV START; Start 11/29/16 at 09:30; Stop at 03:58; Status DC Prochlorperazine Edisylate (Compazine) 5 mg PACU PRN PRN IV NAUSEA; Start at 09:30; Stop 11/30/16 at 03:58; Status DC Fentanyl Citrate (Fentanyl 2ml Vial) 50 mcg PRN Q2HR PRN IV PAIN Last administered on 12/01/16 13:31; Start 11/29/16 at 10:30; Stop 12/01/16 at 17:25 ; Status DC Ondansetron HCl (Zofran) 4 mg PRN Q6HRS PRN IV NAUSEA/VOMITING Last administered on 11/29/16 10:59; Start 11/29/16 at 10:30; Stop 11/29/16 at 14:41; Status DC Lidocaine/Sodium Bicarbonate (Buffered Lidocaine 1%) 3 ml 1X ONCE IJ Last administered on 11/29/16 14:32; Start 11/29/16 at 12:45; Stop 11/29/16 at 12:46; Status DC Bupivacaine HCl/ Epinephrine Bitart (Sensorcain-Mpf Epi 0.5%-[id number]) 30 ml STK -MED ONCE .ROUTE Last administered on 11/29/16 16:47; Start 11/29/16 at 13:57; Stop 11/29/16 at 13:58; Status DC Carvedilol (Coreg) 12.5 mg BIDWMEALS PO Last administered on 11/30/16 09:29; Start 11/29/16 at 17:00; Stop 11/30/16 at 15:13; Status DC Clonidine HCl 1 patch 1 patch WEEKLY TD Last administered on 12/06/16 10:51; Start 11/29/16 at 14:30 Propofol (Diprivan) 20 ml @ As Directed STK-MED ONCE IV ; Start 11/29/16 at 14:14 ; Stop 11/29/16 at 14:15; Status DC Fentanyl Citrate (Fentanyl 2ml Vial) 100 mcg STK-MED ONCE .ROUTE ; Start at 14:14; Stop 11/29/16 at 14:15; Status DC Ondansetron HCl (Zofran) 4 mg STK-MED ONCE .ROUTE ; Start 11/29/16 at 14:14; Stop 11/29/16 at 14:15; Status DC Ondansetron HCl (Zofran) 8 mg PRN Q6HRS PRN IV NAUSEA/VOMITING Last administered on 12/05/16 03:28; Start 11/29/16 at 14:45; Stop 12/05/16 at 08:51 ; Status DC Midazolam HCl (Versed) 2 mg STK-MED ONCE .ROUTE ; Start 11/29/16 at 16:44; Stop 11/29/16 at 16:45; Status DC Pantoprazole Sodium (Protonix) 40 mg DAILYAC PO Last administered on 12/02/16 10:37; Start 11/30/16 at 09:30; Stop 12/03/16 at 07:43; Status DC Ondansetron HCl (Zofran Odt) 8 mg PRN BID PRN PO NAUSEA/VOMITING Last administered on 12/08/16 20:59; Start 11/30/16 at 10:30 Carvedilol (Coreg) 25 mg BIDWMEALS PO Last administered on 12/09/16 08:28; Start 11/30/16 at 17:00 Hydralazine HCl (Apresoline) 50 mg TID PO Last administered on 12/09/16 14:36 ; Start 11/30/16 at 15:30 Aspirin (Ecotrin) 81 mg [id number] PO Last administered on 12/09/16 08:28; Start 11/30/16 at 16:00 Regadenoson (Lexiscan) 0.4 mg 1X ONCE IV Last administered on 12/01/16 09:28 ; Start 12/01/16 at 08:15; Stop 12/01/16 at 08:16; Status DC Levothyroxine Sodium 100 mcg 100 mcg DAILY07 PO Last administered on 12/09/16 06:19; Start 12/01/16 at 14:00 Sodium Chloride 1,000 ml @ 1,000 mls/hr Q1H PRN IV hypotension; Start 12/01/16 at 15:26; Stop 12/01/16 at 21:00; Status DC Sodium Chloride (Iv Sodium Chloride 0.9% 1000ml Bag) 1,000 ml @ 400 mls/hr Q2H30M PRN IV PATENCY; Start 12/01/16 at 15:26; Stop 12/01/16 at 21:00; Status DC Info (PHARMACY MONITORING -- do not chart) 1 each PRN DAILY PRN MC SEE COMMENTS ; Start 12/01/16 at 15:30; Status UNV Info (PHARMACY MONITORING -- do not chart) 1 each PRN DAILY PRN MC SEE COMMENTS ; Start 12/01/16 at 15:30; Status UNV Fentanyl Citrate (Fentanyl 2ml Vial) 50 mcg PRN Q4HRS PRN IV PAIN Last administered on 12/08/16 04:42; Start 12/01/16 at 17:30 Montelukast Sodium (Singulair) 10 mg QHS PO Last administered on 12/08/16 20: 51; Start 12/02/16 at 21:00 Pantoprazole Sodium 40 mg 40 mg DAILYAC IVP ; Start 12/03/16 at 08:00; Stop 10/07 at 08:00; Status DC Pantoprazole Sodium 80 mg/ Sodium Chloride 100 ml @ 10 mls/hr Q10H IV Last administered on 12/09/16 14:36; Start 12/03/16 at 08:00 Propofol (Diprivan) 20 ml @ As Directed STK-MED ONCE IV ; Start 12/03/16 at 09: 23; Stop 12/03/16 at 09:24; Status DC Lidocaine HCl (Lidocaine Pf 2% Vial) 5 ml STK-MED ONCE .ROUTE ; Start 12/03/16 at 09:24; Stop 12/03/16 at 09:25; Status DC Ephedrine Sulfate 50 mg STK-MED ONCE IV ; Start 12/03/16 at 09:24; Stop at 09:25; Status DC Morphine Sulfate 2 mg 2 mg PRN Q2HR PRN IV PAIN Last administered on 12/09/16 08:34; Start 12/03/16 at 10:30 Sodium Chloride 1,000 ml @ 1,000 mls/hr Q1H PRN IV hypotension; Start 12/03/16 at 17:19; Stop 12/03/16 at 23:18; Status DC Sodium Chloride (Iv Sodium Chloride 0.9% 1000ml Bag) 1,000 ml @ 400 mls/hr Q2H30M PRN IV PATENCY; Start 12/03/16 at 17:19; Stop 12/04/16 at 05:18; Status DC Info (PHARMACY MONITORING -- do not chart) 1 each PRN DAILY PRN MC SEE COMMENTS ; Start 12/03/16 at 17:30; Status UNV Info 1 each 1 each PRN DAILY PRN MC SEE COMMENTS; Start 12/03/16 at 17:30; Status UNV Amino Acids/ Glycerin/ Electrolytes (Procalamine) 1,000 ml @ 80 mls/hr [id number] IV Last administered on 12/03/16 21:05; Start 12/03/16 at 19:45; Stop at 13:05; Status DC Prochlorperazine (Compazine) 25 mg PRN Q12HR PRN NM NAUSEA/VOMITING; Start 10/07 at 22:00 Lidocaine HCl (Xylocaine-Mpf 1% Vial) 2 ml STK-MED ONCE .ROUTE ; Start 12/04/16 at 14:48; Stop 12/04/16 at 14:49; Status DC Iohexol (Omnipaque 350 Mg/ml) 90 ml 1X ONCE IV Last administered on 12/04/16 16:17; Start 12/04/16 at 16:00; Stop 12/04/16 at 16:01; Status DC Info (Do NOT chart on this entry -- for MONITORING) 1 each PRN DAILY PRN MC SEE COMMENTS; Start 12/04/16 at 16:00; Stop 12/06/16 at 15:59; Status DC Gelatin (Gelfoam Size 12-7mm) 1 each STK-MED ONCE .ROUTE ; Start 12/04/16 at 17 :09; Stop 12/04/16 at 17:10; Status DC Midazolam HCl (Versed) 2 mg STK-MED ONCE .ROUTE ; Start 12/04/16 at 17:10; Stop 12/04/16 at 17:11; Status DC Heparin Sodium/ Sodium Chloride 1,000 unit 1X ONCE IART Last administered on 20:00; Start 12/04/16 at 17:15; Stop 12/04/16 at 17:16; Status DC Lidocaine/Sodium Bicarbonate (Buffered Lidocaine 1%) 20 ml 1X ONCE IJ Last administered on 12/04/16 20:00; Start 12/04/16 at 17:15; Stop 12/04/16 at 17:16 ; Status DC Midazolam HCl (Versed) 2 mg 1X ONCE IV Last administered on 12/04/16 20:02; Start 12/04/16 at 17:15; Stop 12/04/16 at 17:16; Status DC Fentanyl Citrate (Fentanyl 2ml Vial) 100 mcg 1X ONCE IV Last administered on 20:02; Start 12/04/16 at 17:15; Stop 12/04/16 at 17:16; Status DC Iohexol (Omnipaque 300 Mg/ml) 100 ml 1X ONCE IART Last administered on 20:03; Start 12/04/16 at 17:15; Stop 12/04/16 at 17:16; Status DC Info 1 each 1 each PRN DAILY PRN MC SEE COMMENTS; Start 12/04/16 at 17:15; Stop 12/06/16 at 17:14; Status Cancel Heparin Sodium/ Sodium Chloride 1,500 ml @ As Directed STK-MED ONCE .ROUTE ; Start 12/04/16 at 17:13; Stop 12/04/16 at 17:14; Status DC Diphenhydramine HCl (Benadryl) 25 mg 1X ONCE IVP Last administered on 20:01; Start 12/04/16 at 18:15; Stop 12/04/16 at 18:16; Status DC Info (PHARMACY MONITORING -- do not chart) 1 each PRN DAILY PRN MC SEE COMMENTS ; Start 12/04/16 at 21:45 Ondansetron HCl (Zofran) 8 mg PRN Q4HRS PRN IV NAUSEA/VOMITING Last administered on 12/09/16 08:33; Start 12/05/16 at 09:00 Alteplase, Recombinant (Cathflo) 2 mg 1X ONCE INT CAT Last administered on 03:14; Start 12/07/16 at 03:15; Stop 12/07/16 at 03:16; Status DC Alteplase, Recombinant (Cathflo) 2 mg 1X ONCE INT CAT ; Start 12/07/16 at 04:30 ; Stop 12/07/16 at 04:31; Status DC Phenyleph/Shark Oil/Min Oil/Petrol (Preparation H) 1 oniel BID PRN RC RECTAL PAIN Last administered on 12/07/16 09:35; Start 12/07/16 at 08:15 Iohexol 90 ml 90 ml 1X ONCE IV ; Start 12/07/16 at 13:00; Stop 12/07/16 at 13: 11; Status DC Sodium Chloride (Iv Sodium Chloride 0.9% 1000ml Bag) 1,000 ml @ 1,000 mls/hr Q1H PRN IV hypotension; Start 12/08/16 at 09:04; Stop 12/08/16 at 15:03; Status DC Diphenhydramine HCl (Benadryl) 25 mg 1X PRN PRN IV ITCHING; Start 12/08/16 at 09:15; Stop 12/09/16 at 09:14; Status DC Diphenhydramine HCl 25 mg 25 mg 1X PRN PRN IV ITCHING; Start 12/08/16 at 09:15 ; Stop 12/09/16 at 09:14; Status DC Sodium Chloride (Iv Sodium Chloride 0.9% 1000ml Bag) 1,000 ml @ 400 mls/hr Q2H30M PRN IV PATENCY; Start 12/08/16 at 09:04; Stop 12/08/16 at 21:03; Status DC Info (PHARMACY MONITORING -- do not chart) 1 each PRN DAILY PRN MC SEE COMMENTS ; Start 12/08/16 at 09:15; Status UNV Lidocaine HCl (Xylocaine-Mpf 1% Vial) 2 ml 1X ONCE INJ Last administered on 09:49; Start 12/08/16 at 09:15; Stop 12/08/16 at 09:23; Status DC Alteplase, Recombinant (Cathflo) 2 mg 1X ONCE INT CAT Last administered on t 16:14; Start 12/08/16 at 16:15; Stop 12/08/16 at 16:18; Status DC Montelukast Sodium (Singulair) 10 mg QHS PO ; Start 12/09/16 at 21:00 Penicillin V Potassium (Veetid) 500 mg Q8HRS PO Last administered on 12/09/16t 14:35; Start 12/09/16 at 14:00 Active Scripts Active Levaquin (Levofloxacin) 500 Mg Tablet 500 Mg PO Q48H Lisinopril 10 Mg Tablet 10 Mg PO DAILY 30 Days Hydrocodone-Apap 7.5-325 (Hydrocodone Bit/Acetaminophen) 1 Each Tablet 1 Tab PO PRN Q4HRS PRN 14 Days Flector (Diclofenac Epolamine) 1 Each Patch.td12 1 Patch TD BID 30 Days Aranesp Syringe (Darbepoetin Apolinar In Polysorbat) 60 Mcg/0.3 Ml Disp.syrin 60 Mcg SQ WEEKLYHS 30 Days Furosemide 80 Mg Tablet 80 Mg PO TID 30 Days Loperamide (Loperamide Hcl) 2 Mg Capsule 2 Mg PO PRN Q15MIN PRN 30 Days Isosorbide Mononitrate Er (Isosorbide Mononitrate) 30 Mg Tab.er.24h 30 Mg PO DAILY 30 Days Maren-Bid Caplet (Acidoph/L.bulg/Bif.b/S.thermop) 1 Each Tablet 1 Tab PO TIDWMEALS 30 Days Reported Lorazepam 1 Mg Tablet 1 Mg PO PRN Q6HRS PRN Renvela (Sevelamer Carbonate) 800 Mg Tablet 2 Tab PO TID Lidocaine-Prilocaine Cream (Lidocaine/Prilocaine) 30 Gm Cream..g. 1 Oniel TP UD Dicyclomine Hcl 20 Mg Tablet 1 Tab PO TID PRN Clonidine Hcl 0.3 Mg Tablet 0.3 Mg PO TID Amlodipine Besylate 10 Mg Tablet 10 Mg PO HS Renal Caps Softgel (Folic Acid/Vitamin B Comp W-C) 1 Mg Capsule 1 Cap PO DAILY Advair 250-50 Diskus (Fluticasone/Salmeterol) 1 Each Disk.w.dev 2 Puff IH DAILY Proair Hfa Inhaler (Albuterol Sulfate) 8.5 Gm Hfa.aer.ad 2 Puff INH PRN Q6HRS PRN Acyclovir 200 Mg Capsule 200 Mg PO BID Paroxetine Hcl 20 Mg Tablet 20 Mg PO QHS Nighttime Sleep Aid (Diphenhydramine Hcl) 50 Mg Capsule 50 Mg PO QHS Ondansetron Hcl 8 Mg Tablet 8 Mg PO BID PRN Methocarbamol 750 Mg Tablet 1,500 Mg PO QID PRN Tylenol Extra Strength (Acetaminophen) 500 Mg Tablet 500 Mg PO Q6HRS PRN Claritin (Loratadine) 10 Mg Capsule 10 Mg PO HS Vitals/I & O Vital Sign - Last 24 Hours 12/08/16 12/08/16 12/08/16 12/08/16 15:03 18:10 19:00 19:54 Temp 98.2 98.2 Pulse 75 78 Resp 22 B/P 184/84 155/81 Pulse Ox 97 93 O2 Delivery Nasal Cannula Nasal Cannula Nasal Cannula O2 Flow Rate 2.0 2.0 2.0 12/08/16 12/08/16 12/08/16 12/08/16 20:52 20:53 21:00 23:00 Temp 97.9 97.9 Pulse 74 74 72 Resp 18 22 B/P 130/64 130/64 147/60 Pulse Ox 93 98 O2 Delivery Nasal Cannula Nasal Cannula O2 Flow Rate 2.0 2.0 12/09/16 12/09/16 12/09/16 12/09/16 03:00 03:07 04:06 07:00 Temp 97.9 97.9 97.9 97.9 Pulse 66 71 Resp 22 18 17 18 B/P 137/61 156/73 Pulse Ox 99 98 98 96 O2 Delivery Nasal Cannula Nasal Cannula Nasal Cannula O2 Flow Rate 2.0 2.0 2.0 2.0 12/09/16 12/09/16 12/09/16 12/09/16 07:49 08:00 08:28 08:30 Pulse 71 71 B/P 156/73 156/73 Pulse Ox 98 O2 Delivery Nasal Cannula Nasal Cannula O2 Flow Rate 2.0 2.0 12/09/16 12/09/16 12/09/16 12/09/16 08:31 08:32 08:34 09:04 Pulse 71 71 B/P 156/73 156/73 O2 Delivery Nasal Cannula Nasal Cannula O2 Flow Rate 2.0 2.0 12/09/16 12/09/16 12/09/16 12/09/16 10:54 12:20 13:20 14:36 Temp 97.9 97.9 Pulse 71 70 Resp 18 B/P 145/70 140/67 Pulse Ox 96 O2 Delivery Nasal Cannula Nasal Cannula Room Air O2 Flow Rate 2.0 2.0 Intake and Output 12/08/16 12/08/16 12/09/16 15:00 23:00 07:00 Intake Total 360 ml 440 ml 240 ml Output Total 125 ml 300 ml Balance 235 ml 440 ml -60 ml JONATHAN KIRK MD Dec 09, 2016 15:03
[2016-12-09 15:19] VITALS: BP 140/67
[2016-12-09 19:00] VITALS: BP 149/71
[2016-12-09] MEDS: ALBUTEROL SULFATE 2.5 MG/3 ML NEBU. NEB PRN (20:09)
[2016-12-09] MEDS: AMLODIPINE BESYLATE 10 MG TABLET PO SCH (20:39)
[2016-12-09] MEDS: DIPHENHYDRAMINE HCL 25 MG CAPSULE PO SCH (20:39)
[2016-12-09] MEDS: CETIRIZINE HCL 10 MG TABLET PO SCH (20:40)
[2016-12-09] MEDS: PAROXETINE 20 MG TABLET. PO SCH (20:40)
[2016-12-09] MEDS: MONTELUKAST SODIUM 10 MG TABLET. PO SCH (20:40)
[2016-12-09] MEDS ORDERED: MONTELUKAST SODIUM 10 MG TABLET. PO SCH (21:00)
[2016-12-09 23:00] VITALS: BP 139/60
[2016-12-10 03:08] VITALS: BP 145/67
[2016-12-10] MEDS: PENICILLIN V K 250 MG TABLET. PO SCH ×2 (05:59→13:21)
[2016-12-10] MEDS: LEVOTHYROXINE 100 MCG TABLET PO SCH (05:59)
[2016-12-10] MEDS ORDERED: ALTEPLASE 2MG VIAL 10 MG in IV NORMAL SALINE 100ML 100 ML IV ONE (06:15)
[2016-12-10] MEDS ORDERED: ALTEPLASE 2 MG VIAL INT CAT ONE (06:45)
[2016-12-10 07:00] VITALS: BP 198/72
[2016-12-10] MEDS: BUDESONIDE 0.5 MG/2 ML NEBU NEB SCH (07:54)
[2016-12-10 07:59] LABS: HEMATOCRIT 29.6 % (36.0-47.0); HEMOGLOBIN 9.3 g/dL (12.0-15.5); RED BLOOD COUNT 2.97 x10^6/uL (3.50-5.40); RED CELL DISTRIBUTION WIDTH 21.3 % (11.5-14.5); WHITE BLOOD COUNT 8.4 x10^3/uL (4.0-11.0)
[2016-12-10 08:09] LABS: CALCIUM 8.5 mg/dL (8.5-10.1); CREATININE 4.7 mg/dL (0.6-1.0); GFR 10.2; POTASSIUM 4.3 mmol/L (3.5-5.1)
[2016-12-10] MEDS: METHOCARBAMOL 750 MG TABLET PO PRN (08:22)
[2016-12-10] MEDS: LACTOBACILLUS ACIDOPH & BULGAR 1 TABLET. PO SCH ×2 (08:22→12:14)
[2016-12-10] MEDS: FOLIC/VIT B COMP W-C (RENAL) TABLET. PO SCH (08:22)
[2016-12-10] MEDS: FUROSEMIDE 80 MG TABLET PO SCH ×2 (08:23→12:14)
[2016-12-10] MEDS: CARVEDILOL 12.5 MG TABLET PO SCH (08:23)
[2016-12-10] MEDS: HYDRALAZINE 50 MG TABLET PO SCH ×2 (08:23→13:22)
[2016-12-10] MEDS: ASPIRIN ENTERIC COATED 81 MG TABLET.DR. PO SCH (08:23)
[2016-12-10] MEDS: SEVELAMER CARBONATE 800 MG TABLET. PO SCH ×2 (08:23→12:14)
[2016-12-10] MEDS: LISINOPRIL 10 MG TABLET PO SCH (08:23)
[2016-12-10] MEDS: HYDROCODONE/APAP 7.5/325MG TABLET. PO PRN (08:24)
[2016-12-10] MEDS: ONDANSETRON PF 4 MG/2 ML VIAL. IV PRN (08:24)
[2016-12-10] MEDS: ISOSORBIDE MONONITRATE ER 30 MG TAB.ER.24H PO SCH (08:25)
[2016-12-10] MEDS: ACYCLOVIR 200 MG CAPSULE PO SCH (08:34)
--- NOTE | 2016-12-10 08:38 | PDOC ---
PULMONARY PROGRESS NOTES Subjective on 02, sob, better. has runny nose, no pain, no cough Vitals Vital Signs Date Time Temp Pulse Resp B/P Pulse Ox O2 Delivery O2 Flow Rate FiO2 12/10/16 08:25 74 198/72 12/10/16 07:54 97 Nasal Cannula 1.5 12/10/16 07:00 97.6 97.6 12/10/16 03:08 18 Comments ros as mentioned as above other sys otherwise neg ROS: No Nausea, No Chest Pain, No Abdominal Pain, No Increase Cough General: Alert, No acute distress Lungs: Crackles Cardiovascular: S1, S2 Abdomen: Soft Neuro Exam: Alert Extremities: No Edema Skin: Warm Labs Laboratory Tests Test 12/09/16 06:20 12/10/16 07:40 White Blood Count 6.7x10^3/uL (4.0-11.0) 8.4x10^3/uL (4.0-11.0) Red Blood Count 2.44x10^6/uL (3.50-5.40) 2.97x10^6/uL (3.50-5.40) Hemoglobin 7.8g/dL (12.0-15.5) 9.3g/dL (12.0-15.5) Hematocrit 24.1% (36.0-47.0) 29.6% (36.0-47.0) Mean Corpuscular Volume 99fL (79-100) 100fL (79-100) Mean Corpuscular Hemoglobin 32pg (25-35) 31pg (25-35) Mean Corpuscular Hemoglobin Concent 32g/dL (31-37) 32g/dL (31-37) Red Cell Distribution Width 22.1% (11.5-14.5) 21.3% (11.5-14.5) Platelet Count 69x10^3/uL (140-400) 68x10^3/uL (140-400) Neutrophils (%) (Auto) 80% (31-73) Lymphocytes (%) (Auto) 9% (24-48) Monocytes (%) (Auto) 10% (0-9) Eosinophils (%) (Auto) 1% (0-3) Basophils (%) (Auto) 0% (0-3) Neutrophils # (Auto) 5.4x10^3uL (1.8-7.7) Lymphocytes # (Auto) 0.6x10^3/uL (1.0-4.8) Monocytes # (Auto) 0.7x10^3/uL (0.0-1.1) Eosinophils # (Auto) 0.0x10^3/uL (0.0-0.7) Basophils # (Auto) 0.0x10^3/uL (0.0-0.2) Sodium Level 141mmol/L (136-145) 140mmol/L (136-145) Potassium Level 4.1mmol/L (3.5-5.1) 4.3mmol/L (3.5-5.1) Chloride Level 104mmol/L (98-107) 102mmol/L (98-107) Carbon Dioxide Level 29mmol/L (21-32) 26mmol/L (21-32) Anion Gap 8 (6-14) 12 (6-14) Blood Urea Nitrogen 24mg/dL (7-20) 37mg/dL (7-20) Creatinine 3.3mg/dL (0.6-1.0) 4.7mg/dL (0.6-1.0) Estimated GFR (Cockcroft-Gault) 15.4 10.2 Glucose Level 85mg/dL (70-99) 94mg/dL (70-99) Calcium Level 8.0mg/dL (8.5-10.1) 8.5mg/dL (8.5-10.1) Laboratory Tests Test 12/10/16 07:40 White Blood Count 8.4x10^3/uL (4.0-11.0) Red Blood Count 2.97x10^6/uL (3.50-5.40) Hemoglobin 9.3g/dL (12.0-15.5) Hematocrit 29.6% (36.0-47.0) Mean Corpuscular Volume 100fL (79-100) Mean Corpuscular Hemoglobin 31pg (25-35) Mean Corpuscular Hemoglobin Concent 32g/dL (31-37) Red Cell Distribution Width 21.3% (11.5-14.5) Platelet Count 68x10^3/uL (140-400) Sodium Level 140mmol/L (136-145) Potassium Level 4.3mmol/L (3.5-5.1) Chloride Level 102mmol/L (98-107) Carbon Dioxide Level 26mmol/L (21-32) Anion Gap 12 (6-14) Blood Urea Nitrogen 37mg/dL (7-20) Creatinine 4.7mg/dL (0.6-1.0) Estimated GFR (Cockcroft-Gault) 10.2 Glucose Level 94mg/dL (70-99) Calcium Level 8.5mg/dL (8.5-10.1) Medications Active Scripts Medications Dose Route/Sig Days Date Category Levaquin (Levofloxacin) 500 Mg Tablet 500 Mg PO Q48H 09/30/16 Rx Lisinopril 10 Mg Tablet 10 Mg PO DAILY 30 07/06/16 Rx Hydrocodone-Apap 7.5-325 (Hydrocodone Bit/Acetaminophen) 1 Each Tablet 1 Tab PO PRN Q4HRS PRN 14 07/06/16 Rx Flector (Diclofenac Epolamine) 1 Each Patch.td12 1 Patch TD BID 30 07/06/16 Rx Aranesp Syringe (Darbepoetin Apolinar In Polysorbat) 60 Mcg/0.3 Ml Disp.syrin 60 Mcg SQ WEEKLYHS 30 07/06/16 Rx Furosemide 80 Mg Tablet 80 Mg PO TID 30 07/06/16 Rx Lorazepam 1 Mg Tablet 1 Mg PO PRN Q6HRS PRN 07/02/16 Reported Renvela (Sevelamer Carbonate) 800 Mg Tablet 2 Tab PO TID 07/02/16 Reported Loperamide (Loperamide Hcl) 2 Mg Capsule 2 Mg PO PRN Q15MIN PRN 30 06/09/16 Rx Isosorbide Mononitrate Er (Isosorbide Mononitrate) 30 Mg Tab.er.24h 30 Mg PO DAILY 30 06/09/16 Rx Maren-Bid Caplet (Acidoph/L.bulg/Bif.b/S.thermop) 1 Each Tablet 1 Tab PO TIDWMEALS 30 06/09/16 Rx Lidocaine-Prilocaine Cream (Lidocaine/Prilocaine) 30 Gm Cream..g. 1 Oniel TP UD 06/04/16 Reported Dicyclomine Hcl 20 Mg Tablet 1 Tab PO TID PRN 06/04/16 Reported Clonidine Hcl 0.3 Mg Tablet 0.3 Mg PO TID 06/04/16 Reported Amlodipine Besylate 10 Mg Tablet 10 Mg PO HS 06/04/16 Reported Renal Caps Softgel (Folic Acid/Vitamin B Comp W-C) 1 Mg Capsule 1 Cap PO DAILY 01/16/16 Reported Advair 250-50 Diskus (Fluticasone/Salmeterol) 1 Each Disk.w.dev 2 Puff IH DAILY 01/16/16 Reported Proair Hfa Inhaler (Albuterol Sulfate) 8.5 Gm Hfa.aer.ad 2 Puff INH PRN Q6HRS PRN 01/16/16 Reported Acyclovir 200 Mg Capsule 200 Mg PO BID 01/16/16 Reported Paroxetine Hcl 20 Mg Tablet 20 Mg PO QHS 05/09/15 Reported Nighttime Sleep Aid (Diphenhydramine Hcl) 50 Mg Capsule 50 Mg PO QHS 05/09/15 Reported Ondansetron Hcl 8 Mg Tablet 8 Mg PO BID PRN 05/09/14 Reported Methocarbamol 750 Mg Tablet 1,500 Mg PO QID PRN 05/09/14 Reported Tylenol Extra Strength (Acetaminophen) 500 Mg Tablet 500 Mg PO Q6HRS PRN 05/09/14 Reported Claritin (Loratadine) 10 Mg Capsule 10 Mg PO HS 05/09/14 Reported Comments cxr reviewed. There is less left pleural fluid than previously consistent with the interval thoracentesis. Impression . 1. ACUTE/CHRONIC RESP FAILURE MULTIFACTORIAL 2. ACUTE GI BLEED S/P EMBOLIZATION 3. A/C DIASTOLIC/SYST HEART FAILURE 4. Chronic respiratory failure, on home oxygen. 5. History of multiple myeloma, currently on chemo. 6. End-stage renal disease, on hemodialysis. 7. PLEURAL EFFUSION S/P THORACENTESIS 8. allergic rhinitis Plan . RESP STATUS IS COMPENSATED FOLLOW GI INPUT FOLLOW CYTOLOGY ON PLEURAL FLUID CONTINUE THE SAME DIET PER GI 02 titration, is on home o2 increase activity cont kay yanes w rn, pt. ARIK WEBSTER MD Dec 10, 2016 08:38
--- NOTE | 2016-12-10 09:51 | PDOC ---
PROGRESS NOTES Subjective Subjective feels well, denies further bleeding Objective Objective Vital Signs Date Time Temp Pulse Resp B/P Pulse Ox O2 Delivery O2 Flow Rate FiO2 12/10/16 08:25 74 198/72 12/10/16 08:00 Nasal Cannula 2.0 12/10/16 07:54 97 12/10/16 07:00 97.6 97.6 12/10/16 03:08 18 Intake and Output 12/10/16 07:00 Intake Total 1862 ml Output Total 200 ml Balance 1662 ml Intake Oral 1160 ml IV Total 100 ml Other 602 ml Output Urine Total 200 ml # Voids 4 Physical Exam Abdomen: Soft, No tenderness Assessment Assessment Problems Medical Problems: (1) Accelerated hypertension Status: Acute (2) Acute on chronic diastolic congestive heart failure due to valvular disease Status: Acute (3) Bilateral pleural effusion Status: Acute (4) Cardiomyopathy Status: Acute (5) COPD with acute exacerbation Status: Acute (6) End stage renal disease Status: Acute Plan Plan of Care No new surgery recs Comment Review of Relevant I have reviewed the following items ernesto (where applicable) has been applied. Labs Laboratory Tests Test 12/09/16 06:20 12/10/16 07:40 White Blood Count 6.7x10^3/uL (4.0-11.0) 8.4x10^3/uL (4.0-11.0) Red Blood Count 2.44x10^6/uL (3.50-5.40) 2.97x10^6/uL (3.50-5.40) Hemoglobin 7.8g/dL (12.0-15.5) 9.3g/dL (12.0-15.5) Hematocrit 24.1% (36.0-47.0) 29.6% (36.0-47.0) Mean Corpuscular Volume 99fL (79-100) 100fL (79-100) Mean Corpuscular Hemoglobin 32pg (25-35) 31pg (25-35) Mean Corpuscular Hemoglobin Concent 32g/dL (31-37) 32g/dL (31-37) Red Cell Distribution Width 22.1% (11.5-14.5) 21.3% (11.5-14.5) Platelet Count 69x10^3/uL (140-400) 68x10^3/uL (140-400) Neutrophils (%) (Auto) 80% (31-73) Lymphocytes (%) (Auto) 9% (24-48) Monocytes (%) (Auto) 10% (0-9) Eosinophils (%) (Auto) 1% (0-3) Basophils (%) (Auto) 0% (0-3) Neutrophils # (Auto) 5.4x10^3uL (1.8-7.7) Lymphocytes # (Auto) 0.6x10^3/uL (1.0-4.8) Monocytes # (Auto) 0.7x10^3/uL (0.0-1.1) Eosinophils # (Auto) 0.0x10^3/uL (0.0-0.7) Basophils # (Auto) 0.0x10^3/uL (0.0-0.2) Sodium Level 141mmol/L (136-145) 140mmol/L (136-145) Potassium Level 4.1mmol/L (3.5-5.1) 4.3mmol/L (3.5-5.1) Chloride Level 104mmol/L (98-107) 102mmol/L (98-107) Carbon Dioxide Level 29mmol/L (21-32) 26mmol/L (21-32) Anion Gap 8 (6-14) 12 (6-14) Blood Urea Nitrogen 24mg/dL (7-20) 37mg/dL (7-20) Creatinine 3.3mg/dL (0.6-1.0) 4.7mg/dL (0.6-1.0) Estimated GFR (Cockcroft-Gault) 15.4 10.2 Glucose Level 85mg/dL (70-99) 94mg/dL (70-99) Calcium Level 8.0mg/dL (8.5-10.1) 8.5mg/dL (8.5-10.1) Laboratory Tests Test 12/10/16 07:40 White Blood Count 8.4x10^3/uL (4.0-11.0) Red Blood Count 2.97x10^6/uL (3.50-5.40) Hemoglobin 9.3g/dL (12.0-15.5) Hematocrit 29.6% (36.0-47.0) Mean Corpuscular Volume 100fL (79-100) Mean Corpuscular Hemoglobin 31pg (25-35) Mean Corpuscular Hemoglobin Concent 32g/dL (31-37) Red Cell Distribution Width 21.3% (11.5-14.5) Platelet Count 68x10^3/uL (140-400) Sodium Level 140mmol/L (136-145) Potassium Level 4.3mmol/L (3.5-5.1) Chloride Level 102mmol/L (98-107) Carbon Dioxide Level 26mmol/L (21-32) Anion Gap 12 (6-14) Blood Urea Nitrogen 37mg/dL (7-20) Creatinine 4.7mg/dL (0.6-1.0) Estimated GFR (Cockcroft-Gault) 10.2 Glucose Level 94mg/dL (70-99) Calcium Level 8.5mg/dL (8.5-10.1) Microbiology 12/05/16 Blood Culture - Preliminary, Resulted NO GROWTH AFTER 4 DAYS 11/29/16 Gram Stain - Final, Complete 12/06/16 Urine Culture - Final, Complete 12/06/16 Urine Culture Result 1 (TENISHA) - Final, Complete Medications Current Medications Sodium Chloride (Iv Sodium Chloride 0.9% 1000ml Bag) 1,000 ml @ 100 mls/hr Q10H IV Last administered on 11/27/16 19:49; Start 11/27/16 at 19:01; Stop at 05:00; Status DC Albuterol/ Ipratropium (Duoneb) 6 ml 1X ONCE NEB Last administered on 19:10; Start 11/27/16 at 19:30; Stop 11/27/16 at 19:31; Status DC Methylprednisolone Sodium Succinate (Solu-Medrol 125mg Vial) 125 mg 1X ONCE IV Last administered on 11/27/16 19:49; Start 11/27/16 at 19:30; Stop 11/27/16 at 19:31; Status DC Acetaminophen/ Hydrocodone Bitart (Lortab 7.5/325) 1 tab 1X ONCE PO Last administered on 11/27/16 20:29; Start 11/27/16 at 20:15; Stop 11/27/16 at 20:17; Status DC Lisinopril (Prinivil) 10 mg 1X ONCE PO Last administered on 11/27/16 21:09; Start 11/27/16 at 21:15; Stop 11/27/16 at 21:16; Status DC Amlodipine Besylate (Norvasc) 10 mg 1X ONCE PO Last administered on 11/27/16 21:08; Start 11/27/16 at 21:15; Stop 11/27/16 at 21:16; Status DC Clonidine HCl (Catapres) 0.3 mg 1X ONCE PO Last administered on 11/27/16 21:09 ; Start 11/27/16 at 21:15; Stop 11/27/16 at 21:16; Status DC Ondansetron HCl (Zofran) 4 mg PRN Q8HRS PRN IV NAUSEA/VOMITING Last administered on 11/28/16 18:24; Start 11/27/16 at 22:30; Stop 11/28/16 at 22:29; Status DC Fentanyl Citrate (Fentanyl 2ml Vial) 50 mcg PRN Q2HR PRN IV SEVERE PAIN Last administered on 11/28/16 21:31; Start 11/27/16 at 22:30; Stop 11/28/16 at 22:29; Status DC Acetaminophen (Tylenol) 650 mg PRN Q4HRS PRN PO FEVER; Start 11/27/16 at 22:30; Stop 11/28/16 at 22:29; Status DC Albuterol/ Ipratropium (Duoneb) 3 ml RTQID NEB Last administered on 11/29/16 06 :06; Start 11/28/16 at 08:00; Stop 11/29/16 at 07:59; Status DC Methylprednisolone Sodium Succinate (Solu-Medrol 40mg Vial) 60 mg Q6HRS IV Last administered on 12/03/16 00:24; Start 11/28/16 at 00:00; Stop 12/03/16 at 13:20; Status DC Diphenhydramine HCl (Benadryl) 25 mg 1X ONCE IVP Last administered on 23:30; Start 11/27/16 at 23:00; Stop 11/27/16 at 23:01; Status DC Diphenhydramine HCl (Benadryl) 25 mg PRN Q6HRS PRN IVP ITCHING Last administered on 12/02/16 02:37; Start 11/28/16 at 02:00 Albuterol Sulfate (Ventolin Neb Soln) 2.5 mg PRN Q4HRS PRN NEB SHORTNESS OF BREATH Last administered on 12/09/16 20:09; Start 11/28/16 at 05:15 Acetaminophen (Tylenol) 500 mg PRN Q6HRS PRN PO PAIN Last administered on 06:13; Start 11/28/16 at 07:15 Lactobacillus Acidophilus (Bacid, Maren-Bid) 1 tab TIDWMEALS PO Last administered on 12/10/16 08:22; Start 11/28/16 at 08:00 Acyclovir (Zovirax) 200 mg BID PO Last administered on 12/10/16 08:34; Start 11/28/16 at 09:00 Amlodipine Besylate (Norvasc) 10 mg HS PO Last administered on 12/09/16 20:39 ; Start 11/28/16 at 21:00 Clonidine HCl (Catapres) 0.3 mg TID PO Last administered on 11/28/16 20:54; Start 11/28/16 at 09:00; Stop 11/29/16 at 14:02; Status DC Darbepoetin Apolinar (Aranesp) 60 mcg Tu SQ Last administered on 12/05/16 21:26; Start 11/28/16 at 21:00 Diclofenac Epolamine (Flector) 1 patch BID TD ; Start 11/28/16 at 09:00; Stop 11/28/16 at 14:38; Status DC Furosemide (Lasix) 80 mg TID@,, PO Last administered on 12/10/16 08:23; Start 11/28/16 at 09:00 Acetaminophen/ Hydrocodone Bitart (Lortab 7.5/325) 1 tab PRN Q4HRS PRN PO SEVERE PAIN Last administered on 12/10/16 08:24; Start 11/28/16 at 07:15 Isosorbide Mononitrate (Imdur) 30 mg DAILY PO Last administered on 12/10/16 08 :25; Start 11/28/16 at 09:00 Lidocaine/ Prilocaine (Emla) 1 oniel PRN QID PRN TP pain; Start 11/28/16 at 07:15 Lisinopril (Prinivil) 10 mg DAILY PO Last administered on 12/10/16 08:23; Start 11/28/16 at 09:00 Loperamide HCl (Imodium) 2 mg PRN Q15MIN PRN PO DIARRHEA; Start 11/28/16 at 07: 15 Lorazepam (Ativan) 1 mg PRN Q6HRS PRN PO VOMITING Last administered on 21:06; Start 11/28/16 at 07:15 Methocarbamol (Robaxin) 1,500 mg PRN QID PRN PO SEVERE PAIN Last administered on 12/10/16 08:22; Start 11/28/16 at 07:15 Paroxetine HCl (Paxil) 20 mg QHS PO Last administered on 12/09/16 20:40; Start 11/28/16 at 21:00 Sevelamer Carbonate (Renvela) 800 mg TIDWMEALS PO Last administered on 08:23; Start 11/28/16 at 08:00 Dicyclomine HCl (Bentyl) 20 mg PRN TID PRN PO Stomach pain Last administered on 11/28/16 09:02; Start 11/28/16 at 07:45 Diphenhydramine HCl (Benadryl) 50 mg QHS PO Last administered on 12/09/16 20: 39; Start 11/28/16 at 21:00 Non-Formulary Medication 2 puff DAILY IH ; Start 11/28/16 at 09:00; Stop 11/28/16 at 09:00; Status DC Folic Acid/ Multivitamins/Vit B12 (Nephro-Sheree) 1 tab DAILY PO Last administered on 12/10/16 08:22; Start 11/28/16 at 09:00 Cetirizine HCl (Zyrtec) 10 mg QHS PO Last administered on 12/09/16 20:40; Start 11/28/16 at 21:00 Non-Formulary Medication 8 mg PRN BID PRN PO NAUSEA/VOMITING; Start 11/28/16 at 07:15; Stop 11/30/16 at 10:18; Status DC Budesonide 0.5 mg 0.5 mg RTBID NEB Last administered on 12/10/16 07:54; Start 11/28/16 at 08:00 Magnesium Sulfate/ Dextrose (Magnesium Sulfate PREMIX 2GM) 50 ml @ 25 mls/hr PRN DAILY PRN IV for Mag < 1.7 on am labs; Start 11/28/16 at 10:45 Hydralazine HCl (Apresoline) 50 mg TID PO ; Start 11/28/16 at 14:00; Stop at 15:49; Status DC Hydralazine HCl (Apresoline) 10 mg PRN Q4HRS PRN IVP ELEVATED BP, SEE COMMENTS Last administered on 12/05/16 00:42; Start 11/28/16 at 12:00 Hydralazine HCl 25 mg 25 mg TID PO Last administered on 11/30/16 14:14; Start 11/28/16 at 21:00; Stop 11/30/16 at 15:13; Status DC Sodium Chloride (Iv Sodium Chloride 0.9% 1000ml Bag) 1,000 ml @ 1,000 mls/hr Q1H PRN IV hypotension; Start 11/29/16 at 08:51; Stop 11/29/16 at 14:50; Status DC Diphenhydramine HCl (Benadryl) 25 mg 1X PRN PRN IV ITCHING; Start 11/29/16 at 09 :00; Stop 11/30/16 at 08:59; Status DC Diphenhydramine HCl (Benadryl) 25 mg 1X PRN PRN IV ITCHING; Start 11/29/16 at 09 :00; Stop 11/30/16 at 08:59; Status DC Info (PHARMACY MONITORING -- do not chart) 1 each PRN DAILY PRN MC SEE COMMENTS ; Start 11/29/16 at 09:00; Stop 12/05/16 at 08:43; Status DC Info (PHARMACY MONITORING -- do not chart) 1 each PRN DAILY PRN MC SEE COMMENTS ; Start 11/29/16 at 09:00; Status UNV Fentanyl Citrate (Fentanyl 2ml Vial) 25 mcg PRN Q5MIN PRN IV MILD PAIN; Start 11/29/16 at 09:30; Stop 11/30/16 at 03:58; Status DC Fentanyl Citrate 50 mcg 50 mcg PRN Q5MIN PRN IV MODERATE PAIN Last administered on 11/29/16 17:38; Start 11/29/16 at 09:30; Stop 11/30/16 at 03:58; Status DC Lactated Ringer's (Iv Lactated Ringers) 1,000 ml @ 0 mls/hr Q0M IV ; Start 11/29 at 09:16; Stop 11/29/16 at 21:15; Status DC Lidocaine HCl 2 ml 1X PRN PRN ID IV START; Start 11/29/16 at 09:30; Stop at 03:58; Status DC Prochlorperazine Edisylate (Compazine) 5 mg PACU PRN PRN IV NAUSEA; Start at 09:30; Stop 11/30/16 at 03:58; Status DC Fentanyl Citrate (Fentanyl 2ml Vial) 50 mcg PRN Q2HR PRN IV PAIN Last administered on 12/01/16 13:31; Start 11/29/16 at 10:30; Stop 12/01/16 at 17:25 ; Status DC Ondansetron HCl (Zofran) 4 mg PRN Q6HRS PRN IV NAUSEA/VOMITING Last administered on 11/29/16 10:59; Start 11/29/16 at 10:30; Stop 11/29/16 at 14:41; Status DC Lidocaine/Sodium Bicarbonate (Buffered Lidocaine 1%) 3 ml 1X ONCE IJ Last administered on 11/29/16 14:32; Start 11/29/16 at 12:45; Stop 11/29/16 at 12:46; Status DC Bupivacaine HCl/ Epinephrine Bitart (Sensorcain-Mpf Epi 0.5%-[id number]) 30 ml STK -MED ONCE .ROUTE Last administered on 11/29/16 16:47; Start 11/29/16 at 13:57; Stop 11/29/16 at 13:58; Status DC Carvedilol (Coreg) 12.5 mg BIDWMEALS PO Last administered on 11/30/16 09:29; Start 11/29/16 at 17:00; Stop 11/30/16 at 15:13; Status DC Clonidine HCl 1 patch 1 patch WEEKLY TD Last administered on 12/06/16 10:51; Start 11/29/16 at 14:30 Propofol (Diprivan) 20 ml @ As Directed STK-MED ONCE IV ; Start 11/29/16 at 14:14 ; Stop 11/29/16 at 14:15; Status DC Fentanyl Citrate (Fentanyl 2ml Vial) 100 mcg STK-MED ONCE .ROUTE ; Start at 14:14; Stop 11/29/16 at 14:15; Status DC Ondansetron HCl (Zofran) 4 mg STK-MED ONCE .ROUTE ; Start 11/29/16 at 14:14; Stop 11/29/16 at 14:15; Status DC Ondansetron HCl (Zofran) 8 mg PRN Q6HRS PRN IV NAUSEA/VOMITING Last administered on 12/05/16 03:28; Start 11/29/16 at 14:45; Stop 12/05/16 at 08:51 ; Status DC Midazolam HCl (Versed) 2 mg STK-MED ONCE .ROUTE ; Start 11/29/16 at 16:44; Stop 11/29/16 at 16:45; Status DC Pantoprazole Sodium (Protonix) 40 mg DAILYAC PO Last administered on 12/02/16 10:37; Start 11/30/16 at 09:30; Stop 12/03/16 at 07:43; Status DC Ondansetron HCl (Zofran Odt) 8 mg PRN BID PRN PO NAUSEA/VOMITING Last administered on 12/08/16 20:59; Start 11/30/16 at 10:30 Carvedilol (Coreg) 25 mg BIDWMEALS PO Last administered on 12/10/16 08:23; Start 11/30/16 at 17:00 Hydralazine HCl (Apresoline) 50 mg TID PO Last administered on 12/10/16 08:23 ; Start 11/30/16 at 15:30 Aspirin (Ecotrin) 81 mg [id number] PO Last administered on 12/10/16 08:23; Start 11/30/16 at 16:00 Regadenoson (Lexiscan) 0.4 mg 1X ONCE IV Last administered on 12/01/16 09:28 ; Start 12/01/16 at 08:15; Stop 12/01/16 at 08:16; Status DC Levothyroxine Sodium 100 mcg 100 mcg DAILY07 PO Last administered on 12/10/16 05:59; Start 12/01/16 at 14:00 Sodium Chloride 1,000 ml @ 1,000 mls/hr Q1H PRN IV hypotension; Start 12/01/16 at 15:26; Stop 12/01/16 at 21:00; Status DC Sodium Chloride (Iv Sodium Chloride 0.9% 1000ml Bag) 1,000 ml @ 400 mls/hr Q2H30M PRN IV PATENCY; Start 12/01/16 at 15:26; Stop 12/01/16 at 21:00; Status DC Info (PHARMACY MONITORING -- do not chart) 1 each PRN DAILY PRN MC SEE COMMENTS ; Start 12/01/16 at 15:30; Status UNV Info (PHARMACY MONITORING -- do not chart) 1 each PRN DAILY PRN MC SEE COMMENTS ; Start 12/01/16 at 15:30; Status UNV Fentanyl Citrate (Fentanyl 2ml Vial) 50 mcg PRN Q4HRS PRN IV PAIN Last administered on 12/08/16 04:42; Start 12/01/16 at 17:30 Montelukast Sodium (Singulair) 10 mg QHS PO Last administered on 12/09/16 20: 40; Start 12/02/16 at 21:00; Stop 12/10/16 at 07:16; Status DC Pantoprazole Sodium 40 mg 40 mg DAILYAC IVP ; Start 12/03/16 at 08:00; Stop 10/07 at 08:00; Status DC Pantoprazole Sodium 80 mg/ Sodium Chloride 100 ml @ 10 mls/hr Q10H IV Last administered on 12/09/16 23:59; Start 12/03/16 at 08:00 Propofol (Diprivan) 20 ml @ As Directed STK-MED ONCE IV ; Start 12/03/16 at 09: 23; Stop 12/03/16 at 09:24; Status DC Lidocaine HCl (Lidocaine Pf 2% Vial) 5 ml STK-MED ONCE .ROUTE ; Start 12/03/16 at 09:24; Stop 12/03/16 at 09:25; Status DC Ephedrine Sulfate 50 mg STK-MED ONCE IV ; Start 12/03/16 at 09:24; Stop at 09:25; Status DC Morphine Sulfate 2 mg 2 mg PRN Q2HR PRN IV PAIN Last administered on 12/09/16 08:34; Start 12/03/16 at 10:30 Sodium Chloride 1,000 ml @ 1,000 mls/hr Q1H PRN IV hypotension; Start 12/03/16 at 17:19; Stop 12/03/16 at 23:18; Status DC Sodium Chloride (Iv Sodium Chloride 0.9% 1000ml Bag) 1,000 ml @ 400 mls/hr Q2H30M PRN IV PATENCY; Start 12/03/16 at 17:19; Stop 12/04/16 at 05:18; Status DC Info (PHARMACY MONITORING -- do not chart) 1 each PRN DAILY PRN MC SEE COMMENTS ; Start 12/03/16 at 17:30; Status UNV Info 1 each 1 each PRN DAILY PRN MC SEE COMMENTS; Start 12/03/16 at 17:30; Status UNV Amino Acids/ Glycerin/ Electrolytes (Procalamine) 1,000 ml @ 80 mls/hr [id number] IV Last administered on 12/03/16 21:05; Start 12/03/16 at 19:45; Stop at 13:05; Status DC Prochlorperazine (Compazine) 25 mg PRN Q12HR PRN MT NAUSEA/VOMITING; Start 10/07 at 22:00 Lidocaine HCl (Xylocaine-Mpf 1% Vial) 2 ml STK-MED ONCE .ROUTE ; Start 12/04/16 at 14:48; Stop 12/04/16 at 14:49; Status DC Iohexol (Omnipaque 350 Mg/ml) 90 ml 1X ONCE IV Last administered on 12/04/16 16:17; Start 12/04/16 at 16:00; Stop 12/04/16 at 16:01; Status DC Info (Do NOT chart on this entry -- for MONITORING) 1 each PRN DAILY PRN MC SEE COMMENTS; Start 12/04/16 at 16:00; Stop 12/06/16 at 15:59; Status DC Gelatin (Gelfoam Size 12-7mm) 1 each STK-MED ONCE .ROUTE ; Start 12/04/16 at 17 :09; Stop 12/04/16 at 17:10; Status DC Midazolam HCl (Versed) 2 mg STK-MED ONCE .ROUTE ; Start 12/04/16 at 17:10; Stop 12/04/16 at 17:11; Status DC Heparin Sodium/ Sodium Chloride 1,000 unit 1X ONCE IART Last administered on 20:00; Start 12/04/16 at 17:15; Stop 12/04/16 at 17:16; Status DC Lidocaine/Sodium Bicarbonate (Buffered Lidocaine 1%) 20 ml 1X ONCE IJ Last administered on 12/04/16 20:00; Start 12/04/16 at 17:15; Stop 12/04/16 at 17:16 ; Status DC Midazolam HCl (Versed) 2 mg 1X ONCE IV Last administered on 12/04/16 20:02; Start 12/04/16 at 17:15; Stop 12/04/16 at 17:16; Status DC Fentanyl Citrate (Fentanyl 2ml Vial) 100 mcg 1X ONCE IV Last administered on 20:02; Start 12/04/16 at 17:15; Stop 12/04/16 at 17:16; Status DC Iohexol (Omnipaque 300 Mg/ml) 100 ml 1X ONCE IART Last administered on 20:03; Start 12/04/16 at 17:15; Stop 12/04/16 at 17:16; Status DC Info 1 each 1 each PRN DAILY PRN MC SEE COMMENTS; Start 12/04/16 at 17:15; Stop 12/06/16 at 17:14; Status Cancel Heparin Sodium/ Sodium Chloride 1,500 ml @ As Directed STK-MED ONCE .ROUTE ; Start 12/04/16 at 17:13; Stop 12/04/16 at 17:14; Status DC Diphenhydramine HCl (Benadryl) 25 mg 1X ONCE IVP Last administered on 20:01; Start 12/04/16 at 18:15; Stop 12/04/16 at 18:16; Status DC Info (PHARMACY MONITORING -- do not chart) 1 each PRN DAILY PRN MC SEE COMMENTS ; Start 12/04/16 at 21:45 Ondansetron HCl (Zofran) 8 mg PRN Q4HRS PRN IV NAUSEA/VOMITING Last administered on 12/10/16 08:24; Start 12/05/16 at 09:00 Alteplase, Recombinant (Cathflo) 2 mg 1X ONCE INT CAT Last administered on 03:14; Start 12/07/16 at 03:15; Stop 12/07/16 at 03:16; Status DC Alteplase, Recombinant (Cathflo) 2 mg 1X ONCE INT CAT ; Start 12/07/16 at 04:30 ; Stop 12/07/16 at 04:31; Status DC Phenyleph/Shark Oil/Min Oil/Petrol (Preparation H) 1 oniel BID PRN RC RECTAL PAIN Last administered on 12/07/16 09:35; Start 12/07/16 at 08:15 Iohexol 90 ml 90 ml 1X ONCE IV ; Start 12/07/16 at 13:00; Stop 12/07/16 at 13: 11; Status DC Sodium Chloride (Iv Sodium Chloride 0.9% 1000ml Bag) 1,000 ml @ 1,000 mls/hr Q1H PRN IV hypotension; Start 12/08/16 at 09:04; Stop 12/08/16 at 15:03; Status DC Diphenhydramine HCl (Benadryl) 25 mg 1X PRN PRN IV ITCHING; Start 12/08/16 at 09:15; Stop 12/09/16 at 09:14; Status DC Diphenhydramine HCl 25 mg 25 mg 1X PRN PRN IV ITCHING; Start 12/08/16 at 09:15 ; Stop 12/09/16 at 09:14; Status DC Sodium Chloride (Iv Sodium Chloride 0.9% 1000ml Bag) 1,000 ml @ 400 mls/hr Q2H30M PRN IV PATENCY; Start 12/08/16 at 09:04; Stop 12/08/16 at 21:03; Status DC Info (PHARMACY MONITORING -- do not chart) 1 each PRN DAILY PRN MC SEE COMMENTS ; Start 12/08/16 at 09:15; Status UNV Lidocaine HCl (Xylocaine-Mpf 1% Vial) 2 ml 1X ONCE INJ Last administered on 09:49; Start 12/08/16 at 09:15; Stop 12/08/16 at 09:23; Status DC Alteplase, Recombinant (Cathflo) 2 mg 1X ONCE INT CAT Last administered on 16:14; Start 12/08/16 at 16:15; Stop 12/08/16 at 16:18; Status DC Montelukast Sodium (Singulair) 10 mg QHS PO ; Start 12/09/16 at 21:00 Penicillin V Potassium 500 mg 500 mg Q8HRS PO Last administered on 12/10/16 05 :59; Start 12/09/16 at 14:00 Alteplase, Recombinant/ Sodium Chloride (Cathflo/Iv Sodium Chloride 0.9% 100ml) 100 ml @ 10 mls/hr 1X ONCE IV ; Start 12/10/16 at 06:15; Stop 12/10/16 at 16: 14; Status UNV Alteplase, Recombinant (Cathflo) 2 mg 1X ONCE INT CAT Last administered on 06:17; Start 12/10/16 at 06:45; Stop 12/10/16 at 06:46; Status DC Active Scripts Active Levaquin (Levofloxacin) 500 Mg Tablet 500 Mg PO Q48H Lisinopril 10 Mg Tablet 10 Mg PO DAILY 30 Days Hydrocodone-Apap 7.5-325 (Hydrocodone Bit/Acetaminophen) 1 Each Tablet 1 Tab PO PRN Q4HRS PRN 14 Days Flector (Diclofenac Epolamine) 1 Each Patch.td12 1 Patch TD BID 30 Days Aranesp Syringe (Darbepoetin Apolinar In Polysorbat) 60 Mcg/0.3 Ml Disp.syrin 60 Mcg SQ WEEKLYHS 30 Days Furosemide 80 Mg Tablet 80 Mg PO TID 30 Days Loperamide (Loperamide Hcl) 2 Mg Capsule 2 Mg PO PRN Q15MIN PRN 30 Days Isosorbide Mononitrate Er (Isosorbide Mononitrate) 30 Mg Tab.er.24h 30 Mg PO DAILY 30 Days Maren-Bid Caplet (Acidoph/L.bulg/Bif.b/S.thermop) 1 Each Tablet 1 Tab PO TIDWMEALS 30 Days Reported Lorazepam 1 Mg Tablet 1 Mg PO PRN Q6HRS PRN Renvela (Sevelamer Carbonate) 800 Mg Tablet 2 Tab PO TID Lidocaine-Prilocaine Cream (Lidocaine/Prilocaine) 30 Gm Cream..g. 1 Oniel TP UD Dicyclomine Hcl 20 Mg Tablet 1 Tab PO TID PRN Clonidine Hcl 0.3 Mg Tablet 0.3 Mg PO TID Amlodipine Besylate 10 Mg Tablet 10 Mg PO HS Renal Caps Softgel (Folic Acid/Vitamin B Comp W-C) 1 Mg Capsule 1 Cap PO DAILY Advair 250-50 Diskus (Fluticasone/Salmeterol) 1 Each Disk.w.dev 2 Puff IH DAILY Proair Hfa Inhaler (Albuterol Sulfate) 8.5 Gm Hfa.aer.ad 2 Puff INH PRN Q6HRS PRN Acyclovir 200 Mg Capsule 200 Mg PO BID Paroxetine Hcl 20 Mg Tablet 20 Mg PO QHS Nighttime Sleep Aid (Diphenhydramine Hcl) 50 Mg Capsule 50 Mg PO QHS Ondansetron Hcl 8 Mg Tablet 8 Mg PO BID PRN Methocarbamol 750 Mg Tablet 1,500 Mg PO QID PRN Tylenol Extra Strength (Acetaminophen) 500 Mg Tablet 500 Mg PO Q6HRS PRN Claritin (Loratadine) 10 Mg Capsule 10 Mg PO HS Vitals/I & O Vital Sign - Last 24 Hours 12/09/16 12/09/16 12/09/16 12/09/16 10:54 12:20 14:36 15:19 Temp 97.9 97.9 97.9 97.9 Pulse 71 70 71 Resp 18 18 B/P 145/70 140/67 140/67 Pulse Ox 96 96 O2 Delivery Nasal Cannula Nasal Cannula Nasal Cannula O2 Flow Rate 2.0 2.0 2.0 12/09/16 12/09/16 12/09/16 12/09/16 17:41 19:00 19:46 20:09 Temp 99.7 99.7 Pulse 71 74 Resp 20 18 B/P 140/67 149/71 Pulse Ox 98 98 O2 Delivery Nasal Cannula Nasal Cannula Nasal Cannula O2 Flow Rate 1.0 2.0 12/09/16 12/09/16 12/09/16 12/09/16 20:11 20:39 20:39 20:51 Pulse 74 74 Resp 18 B/P 149/71 149/71 Pulse Ox 98 O2 Delivery Nasal Cannula Nasal Cannula O2 Flow Rate 2.0 1.0 12/09/16 12/09/16 12/10/16 12/10/16 23:00 23:04 03:08 07:00 Temp 98.4 98.1 97.6 98.4 98.1 97.6 Pulse 68 69 74 Resp 20 18 B/P 139/60 145/67 198/72 Pulse Ox 98 97 100 O2 Delivery Nasal Cannula Nasal Cannula Nasal Cannula Nasal Cannula O2 Flow Rate 1.0 2.0 12/10/16 12/10/16 12/10/16 12/10/16 07:54 08:00 08:23 08:23 Pulse 74 74 B/P 198/72 198/72 Pulse Ox 97 O2 Delivery Nasal Cannula Nasal Cannula O2 Flow Rate 1.5 2.0 12/10/16 12/10/16 08:23 08:25 Pulse 74 74 B/P 198/72 198/72 Intake and Output 12/09/16 12/09/16 12/10/16 15:00 23:00 07:00 Intake Total 240 ml 920 ml 702 ml Output Total 200 ml Balance 240 ml 720 ml 702 ml JESE REYNA MD Dec 10, 2016 09:50
[2016-12-10] MEDS: PANTOPRAZOLE SODIUM IV 80 MG in IV NORMAL SALINE 100ML 100 ML IV SCH (10:00)
[2016-12-10 11:00] VITALS: BP 125/59
--- NOTE | 2016-12-10 12:40 | PDOC ---
SUBJECTIVE ROS ESRD Doing and feeling OK overall CVS: no Orthopnea, no CP RESP: min ch SOB, no [place] GI: no Nausea, no Vomiting : no Dysuria, no Urgency OBJECTIVE Vital Signs Vital Signs Date Time Temp Pulse Resp B/P Pulse Ox O2 Delivery O2 Flow Rate FiO2 12/10/16 11:00 98.5 68 125/59 96 Nasal Cannula 2.0 98.5 12/10/16 03:08 18 I & 0 Intake and Output 12/10/16 07:00 Intake Total 1862 ml Output Total 200 ml Balance 1662 ml Intake Oral 1160 ml IV Total 100 ml Other 602 ml Output Urine Total 200 ml # Voids 4 PHYSICAL EXAM Physical Exam General Appearance: Awake Alert Oriented x 3 In no resp Distress Eyes: VIsion Unchanged Conjunctiva Normal EN: No EN Drainage Mucous Memb. moist Neck: no JVD min JVP Supple no Thyromegaly CVS: S1 S2 soft Murmur No Gallop No Rub Tr Edema Resp: few Gigi basal Rales no Rhonchi no Acc. Muscle use GI: BS +ve NO Bruit Non Tender Non Distended : no CVA tenderness; no Suprapubic Tenderness DIAGNOSIS/ASSESSMENT ESRD: Current fluid and E-lyte status does not necessitate emergent need for dialysis. Will re-evaluate for dialysis in the am and continue on MWF schedule if she is here GI BLeed - s/p Gastric Artery embolization - no further Melena reported; Call ed OP HD unit yest to avoid Heparin x 6 weeks Anemia: Started on Epogen; Transfuse with next HD as needed if hgb < 7. ( not active on txp list per pt) HTN: reval after fluid status optimization. Current BP meds reviewed. See orders for changes. ABI: Bone & Mineral: Follow Phos and alter binder regimen - improving with current regimen, OP Compliance with same is debatable Skin changes / Hardening - Skin Bx noted: - Telangiectatic lymphovascular spaces with dermal edema andfibrosis. There is no evidence of malignancy.(? NSD ) Previous Fluid overload with CMyopahtay - now better today clinically - challenge Dry wt as betzaida as OP; pt instructed to watch PO fluids intake Discussed Plan of Care and prognosis etc. at length with pt at bedside COMMENT/RELEVANT DATA Meds Current Medications Medications (Trade) Dose Ordered Sig/Jamila Start Time Stop Time Status Last Admin Dose Admin Acetaminophen (Tylenol) 500 mg PRN Q6HRS PRN 11/28/16 07:15 11/30/16 06:13 500 MG Acetaminophen/ Hydrocodone Bitart (Lortab 7.5/325) 1 tab PRN Q4HRS PRN 11/28/16 07:15 12/10/16 08:24 1 TAB Acyclovir (Zovirax) 200 mg BID 11/28/16 09:00 12/10/16 08:34 200 MG Albuterol Sulfate (Ventolin Neb Soln) 2.5 mg PRN Q4HRS PRN 11/28/16 05:15 12/09/16 20:09 2.5 MG Albuterol/ Ipratropium (Duoneb) 3 ml RTQID 11/28/16 08:00 11/29/16 07:59 DC 11/29/16 06:06 3 ML Alteplase, Recombinant (Cathflo) 2 mg 1X ONCE 12/10/16 06:45 12/10/16 06:46 DC 12/10/16 06:17 2 MG Alteplase, Recombinant/ Sodium Chloride (Cathflo/Iv Sodium Chloride 0.9% 100ml) 100 ml @ 10 mls/hr 1X ONCE 12/10/16 06:15 12/10/16 16:14 UNV Amino Acids/ Glycerin/ Electrolytes (Procalamine) 1,000 ml @ 80 mls/hr [id number] 12/03/16 19:45 12/05/16 13:05 DC 12/03/16 21:05 80 MLS/HR Amlodipine Besylate (Norvasc) 10 mg HS 11/28/16 21:00 12/09/16 20:39 10 MG Aspirin (Ecotrin) 81 mg DAILYWBKFT 11/30/16 16:00 12/10/16 08:23 81 MG Budesonide 0.5 mg 0.5 mg RTBID 11/28/16 08:00 12/10/16 07:54 0.5 MG Bupivacaine HCl/ Epinephrine Bitart (Sensorcain-Mpf Epi 0.5%-[id number]) 30 ml STK-MED ONCE 11/29/16 13:57 11/29/16 13:58 DC 11/29/16 16:47 9 ML Carvedilol (Coreg) 25 mg BIDWMEALS 11/30/16 17:00 12/10/16 08:23 25 MG Cetirizine HCl (Zyrtec) 10 mg QHS 11/28/16 21:00 12/09/16 20:40 10 MG Clonidine HCl (Catapres Tts-2) 1 patch WEEKLY 11/29/16 14:30 12/06/16 10:51 1 PATCH Clonidine HCl (Catapres) 0.3 mg TID 11/28/16 09:00 11/29/16 14:02 DC 11/28/16 20:54 0.3 MG Darbepoetin Apolinar (Aranesp) 60 mcg Tu 11/28/16 21:00 12/05/16 21:26 60 MCG Diclofenac Epolamine (Flector) 1 patch BID 11/28/16 09:00 11/28/16 14:38 DC Dicyclomine HCl (Bentyl) 20 mg PRN TID PRN 11/28/16 07:45 11/28/16 09:02 20 MG Diphenhydramine HCl (Benadryl) 25 mg 1X PRN PRN 12/08/16 09:15 12/09/16 09:14 DC Diphenhydramine HCl 25 mg 25 mg 1X PRN PRN 12/08/16 09:15 12/09/16 09:14 DC Ephedrine Sulfate 50 mg STK-MED ONCE 12/03/16 09:24 12/03/16 09:25 DC Fentanyl Citrate (Fentanyl 2ml Vial) 100 mcg 1X ONCE 12/04/16 17:15 12/04/16 17:16 DC 12/04/16 20:02 100 MCG Fentanyl Citrate 50 mcg 50 mcg PRN Q5MIN PRN 11/29/16 09:30 11/30/16 03:58 DC 11/29/16 17:38 50 MCG Folic Acid/ Multivitamins/Vit B12 (Nephro-Sheree) 1 tab DAILY 11/28/16 09:00 12/10/16 08:22 1 TAB Furosemide (Lasix) 80 mg TID@,,11/28/16 09:00 12/10/16 12:14 80 MG Gelatin (Gelfoam Size 12-7mm) 1 each STK-MED ONCE 12/04/16 17:09 12/04/16 17:10 DC Heparin Sodium/ Sodium Chloride 1,500 ml @ As Directed STK-MED ONCE 12/04/16 17:13 12/04/16 17:14 DC Hydralazine HCl (Apresoline) 50 mg TID 11/30/16 15:30 12/10/16 08:23 50 MG Info (Do NOT chart on this entry -- for MONITORING) 1 each PRN DAILY PRN 12/04/16 16:00 12/06/16 15:59 DC Info (PHARMACY MONITORING -- do not chart) 1 each PRN DAILY PRN 12/08/16 09:15 UNV Info 1 each 1 each PRN DAILY PRN 12/04/16 17:15 12/06/16 17:14 Cancel Iohexol (Omnipaque 300 Mg/ml) 100 ml 1X ONCE 12/04/16 17:15 12/04/16 17:16 DC 12/04/16 20:03 180 ML Iohexol (Omnipaque 350 Mg/ml) 90 ml 1X ONCE 12/07/16 13:00 12/07/16 13:11 DC Isosorbide Mononitrate (Imdur) 30 mg DAILY 11/28/16 09:00 12/10/16 08:25 30 MG Lactated Ringer's (Iv Lactated Ringers) 1,000 ml @ 0 mls/hr Q0M 11/29/16 09:16 11/29/16 21:15 DC Lactobacillus Acidophilus (Bacid, Maren-Bid) 1 tab TIDWMEALS 11/28/16 08:00 12/10/16 12:14 1 TAB Levothyroxine Sodium (Synthroid) 100 mcg DAILY07 12/01/16 14:00 12/10/16 05:59 100 MCG Lidocaine HCl (Lidocaine Pf 2% Vial) 5 ml STK-MED ONCE 12/03/16 09:24 12/03/16 09:25 DC Lidocaine HCl (Xylocaine-Mpf 1% Vial) 2 ml 1X ONCE 12/08/16 09:15 12/08/16 09:23 DC 12/08/16 09:49 2 ML Lidocaine/ Prilocaine (Emla) 1 nirav PRN QID PRN 11/28/16 07:15 Lidocaine/Sodium Bicarbonate (Buffered Lidocaine 1%) 20 ml 1X ONCE 12/04/16 17:15 12/04/16 17:16 DC 12/04/16 20:00 8 ML Lisinopril (Prinivil) 10 mg DAILY 11/28/16 09:00 12/10/16 08:23 10 MG Loperamide HCl (Imodium) 2 mg PRN Q15MIN PRN 11/28/16 07:15 Lorazepam (Ativan) 1 mg PRN Q6HRS PRN 11/28/16 07:15 12/03/16 21:06 1 MG Magnesium Sulfate/ Dextrose (Magnesium Sulfate PREMIX 2GM) 50 ml @ 25 mls/hr PRN DAILY PRN 11/28/16 10:45 Methocarbamol (Robaxin) 1,500 mg PRN QID PRN 11/28/16 07:15 12/10/16 08:22 1,500 MG Methylprednisolone Sodium Succinate (Solu-Medrol 40mg Vial) 60 mg Q6HRS 11/28/16 00:00 12/03/16 13:20 DC 12/03/16 00:24 60 MG Methylprednisolone Sodium Succinate (Solu-Medrol 125mg Vial) 125 mg 1X ONCE 11/27/16 19:30 11/27/16 19:31 DC 11/27/16 19:49 125 MG Midazolam HCl (Versed) 2 mg 1X ONCE 12/04/16 17:15 12/04/16 17:16 DC 12/04/16 20:02 4 MG Montelukast Sodium (Singulair) 10 mg QHS 12/09/16 21:00 Morphine Sulfate 2 mg 2 mg PRN Q2HR PRN 12/03/16 10:30 12/09/16 08:34 2 MG Non-Formulary Medication 8 mg PRN BID PRN 11/28/16 07:15 11/30/16 10:18 DC Ondansetron HCl (Zofran Odt) 8 mg PRN BID PRN 11/30/16 10:30 12/08/16 20:59 8 MG Ondansetron HCl (Zofran) 8 mg PRN Q4HRS PRN 12/05/16 09:00 12/10/16 08:24 8 MG Pantoprazole Sodium (Protonix) 40 mg DAILYAC 11/30/16 09:30 12/03/16 07:43 DC 12/02/16 10:37 40 MG Pantoprazole Sodium 40 mg 40 mg DAILYAC 12/03/16 08:00 12/03/16 08:00 DC Pantoprazole Sodium 80 mg/ Sodium Chloride 100 ml @ 10 mls/hr Q10H 12/03/16 08:00 12/09/16 23:59 10 MLS/HR Paroxetine HCl (Paxil) 20 mg QHS 11/28/16 21:00 12/09/16 20:40 20 MG Penicillin V Potassium 500 mg 500 mg Q8HRS 12/09/16 14:00 12/10/16 05:59 500 MG Phenyleph/Shark Oil/Min Oil/Petrol (Preparation H) 1 nirav BID PRN 12/07/16 08:15 12/07/16 09:35 1 NIRAV Prochlorperazine (Compazine) 25 mg PRN Q12HR PRN 12/03/16 22:00 Prochlorperazine Edisylate (Compazine) 5 mg PACU PRN PRN 11/29/16 09:30 11/30/16 03:58 DC Propofol (Diprivan) 20 ml @ As Directed STK-MED ONCE 12/03/16 09:23 12/03/16 09:24 DC Regadenoson (Lexiscan) 0.4 mg 1X ONCE 12/01/16 08:15 12/01/16 08:16 DC 12/01/16 09:28 0.4 MG Sevelamer Carbonate (Renvela) 800 mg TIDWMEALS 11/28/16 08:00 12/10/16 12:14 800 MG Sodium Chloride (Iv Sodium Chloride 0.9% 1000ml Bag) 1,000 ml @ 400 mls/hr Q2H30M PRN 12/08/16 09:04 12/08/16 21:03 DC Lab Laboratory Tests Test 12/10/16 07:40 White Blood Count 8.4x10^3/uL (4.0-11.0) Red Blood Count 2.97x10^6/uL (3.50-5.40) Hemoglobin 9.3g/dL (12.0-15.5) Hematocrit 29.6% (36.0-47.0) Mean Corpuscular Volume 100fL (79-100) Mean Corpuscular Hemoglobin 31pg (25-35) Mean Corpuscular Hemoglobin Concent 32g/dL (31-37) Red Cell Distribution Width 21.3% (11.5-14.5) Platelet Count 68x10^3/uL (140-400) Sodium Level 140mmol/L (136-145) Potassium Level 4.3mmol/L (3.5-5.1) Chloride Level 102mmol/L (98-107) Carbon Dioxide Level 26mmol/L (21-32) Anion Gap 12 (6-14) Blood Urea Nitrogen 37mg/dL (7-20) Creatinine 4.7mg/dL (0.6-1.0) Estimated GFR (Cockcroft-Gault) 10.2 Glucose Level 94mg/dL (70-99) Calcium Level 8.5mg/dL (8.5-10.1) MITRA TAVAREZ MD Dec 10, 2016 12:40
[2016-12-10] MEDS ORDERED: PENI250T2 PO (12:51)
[2016-12-10] MEDS ORDERED: HYDR-2869 PO (12:51)
--- NOTE | 2016-12-10 13:02 | PDOC3 ---
Discharge Summary* Date of Admission: Nov 27, 2016 Date of Discharge: Dec 10, 2016 Admitting Diagnosis Problems Medical Problems: (1) Accelerated hypertension Status: Acute (2) Acute on chronic diastolic congestive heart failure due to valvular disease Status: Acute (3) Bilateral pleural effusion Status: Acute (4) Cardiomyopathy Status: Acute (5) COPD with acute exacerbation Status: Acute (6) End stage renal disease Status: Acute (7) GI bleed Status: Acute Final Diagnosis Acute on chronic CHF, Hx of multiple myeloma, Acute on chronic anemia, HTN, ESRD , Hypothyroidism, Anxiety/Depression, Asthma, Leukocytosis- resolved, Group A strep in urine, PEM-severe, Thrombocytopenia CONSULTS Pulmonology, Heme/Onc, Renal, GI, Surgery, Cardiology Procedures 7units PRBC, 2 units FFP CXR- mild pulmonary vascular congestion. Bilateral pleural effusion, volume loss LLL compatible with atelectasis or PNA CT Chest- improvement of right sided pleural effusion since 06/06. RLL infiltrate or atelectasis present. Moderate sized left sided pleural effusion, generalized anasarca of chest Thoracentesis- 1000cc yellow fluid Stress Test- LVEF 54%, low risk study EGD- gastric ulcer below GE junction s/p cautery/endo-clip/epi injection Gelfoam embolization of left gastric artery CT Angio- no CTA evidence of active GI bleeding Brief Hospital Course DISCHARGE PHYSICAL EXAM GEN: NAD, AOx3 HEENT: MMM, EOMI, no scleral icterus/injection Cardiac: RRR, no M/R/G Lungs: regular breathing rate and effort, slight rhonchi on ONELIA Abd: soft, NTTP Ext: no erythema/edema LE bilaterally Neuro: CN2-12 GI Psych: normal mood and affect Pt is a 41yo CF initially admitted for acute on chronic CHF, found later to have GI bleed 1)Acute on chronic CHF- s/p thoracentesis with 1L fluid drawn off, and additional HD sessions. Pt is currently on Lasix 80mg TID. Pulmonary was following. 2)Hx of multiple myeloma- pt in remission. Continued on Acyclovir. Heme/onc was following. 3)Acute on chronic anemia- 2/2 GI bleed, s/p cauterization/endo-clip/epi injection and 4 units PRBC, initially. Hb increased from 4.1 to 10.7 and then dropped back down. Pt is now s/p gelfoam embolization of left gastric artery and 3 more units PRBC and 2 units FFP. Hb hit a nayla of 7.8 after the last transfusion from 10, and has now increased to 9.3. No more stools over the last 48H. GI and surgery were Following. If pt were to continue to bleed, discussed that pt should go to [facility] to see the bariatrician. 4)HTN- moderately controlled. Pt's meds adjusted in the hospital; being discharged on Carvedilol 25mg BID, Hydralazine 50mg TID, Clonidine patch, Norvasc 10mg QHS, Lisionpril 10mg, Imdur 30mg. 5)ESRD- Renal following, pt on HD //. Electrolytes stable 6)Hypothyroidism- TSH elevated at 13.304, currently receiving Levothyroxine 100mcg. Will need to adjust outpatient. 7)Anxiety/Depression- pt currently receiving Paroxetine 20mg and Lorazepam 8)Asthma- pt continued on Pulmicort BID and Albuterol prn 9)Leukocytosis- resolved. Blood cultures negative. Urine cx +Strep A; on PCN. 10)PEM- severe 11)Thrombocytopenia- s/p 2 units FFP. Platelets were decreasing, now stable at 68 Disposition/Orders: D/C to Home CONDITION AT DISCHARGE: Improved, Stable Diet: Renal Scheduled Acidoph/L.bulg/Bif.b/S.thermop (Maren-Bid Caplet) 1 TAB PO TIDWMEALS Acyclovir (Acyclovir) 200 MG PO BID (Reported) Amlodipine Besylate (Amlodipine Besylate) 10 MG PO HS (Reported) Aspirin (Aspirin Ec) 81 MG PO DAILYWBKFT Carvedilol (Carvedilol) 25 MG PO BIDWMEALS Clonidine (Clonidine Tts-2) 1 PATCH TD WEEKLY Darbepoetin Apolinar In Polysorbat (Aranesp Syringe) 60 MCG SQ WEEKLYHS Diclofenac Epolamine (Flector) 1 PATCH TD BID Diphenhydramine Hcl (Nighttime Sleep Aid) 50 MG PO QHS (Reported) Fluticasone/Salmeterol (Advair 250-50 Diskus) 2 PUFF IH DAILY (Reported) Folic Acid/Vitamin B Comp W-C (Renal Caps Softgel) 1 CAP PO DAILY (Reported) Furosemide (Furosemide) 80 MG PO TID Hydralazine Hcl (Hydralazine Hcl) 50 MG PO TID Isosorbide Mononitrate (Isosorbide Mononitrate Er) 30 MG PO DAILY Levothyroxine Sodium (Synthroid) 100 MCG PO DAILY07 Lidocaine/Prilocaine (Lidocaine-Prilocaine Cream) 1 VICKY TP UD (Reported) Lisinopril (Lisinopril) 10 MG PO DAILY Loratadine (Claritin) 10 MG PO HS (Reported) Montelukast Sodium (Montelukast Sodium Tablet) 10 MG PO QHS Pantoprazole Sodium (Pantoprazole Sodium) 40 MG PO DAILYAC Paroxetine Hcl (Paroxetine Hcl) 20 MG PO QHS (Reported) Penicillin V Potassium (Penicillin V Potassium) 500 MG PO Q8HRS Sevelamer Carbonate (Renvela) 2 TAB PO TID (Reported) Scheduled PRN Acetaminophen (Tylenol Extra Strength) 500 MG PO Q6HRS PRN PRN PAIN (Reported) Albuterol Sulfate (Proair Hfa Inhaler) 2 PUFF INH PRN Q6HRS PRN PRN SHORTNESS OF BREATH (Reported) Dicyclomine Hcl (Dicyclomine Hcl) 1 TAB PO TID PRN PRN DIARRHEA (Reported) Hydrocodone Bit/Acetaminophen (Hydrocodone-Apap 7.5-325 ) 1 TAB PO PRN Q4HRS PRN PRN SEVERE PAIN Loperamide Hcl (Loperamide) 2 MG PO PRN Q15MIN PRN PRN DIARRHEA Lorazepam (Lorazepam) 1 MG PO PRN Q6HRS PRN PRN VOMITING (Reported) Methocarbamol (Methocarbamol) 1,500 MG PO QID PRN PRN SEVERE PAIN (Reported) Ondansetron Hcl (Ondansetron Hcl) 8 MG PO BID PRN PRN NAUSEA/VOMITING (Reported ) PCP Follow up with Dr. Fierro in 5-7 days Time Spent Total time spent with patient [] minutes for coordination of care, counseling, and education. GERI FIERRO MD Dec 10, 2016 13:01
[2016-12-10 13:22] VITALS: BP 125/59
--- NOTE | 2016-12-10 13:48 | PDOC ---
PROGRESS NOTES Subjective Subjective c/c - f/u Multiple myeloma ROS - no GI bleed Objective Objective Vital Signs Date Time Temp Pulse Resp B/P Pulse Ox O2 Delivery O2 Flow Rate FiO2 12/10/16 13:22 68 125/59 12/10/16 11:00 98.5 96 Nasal Cannula 2.0 98.5 12/10/16 03:08 18 Intake and Output 12/10/16 07:00 Intake Total 1862 ml Output Total 200 ml Balance 1662 ml Intake Oral 1160 ml IV Total 100 ml Other 602 ml Output Urine Total 200 ml # Voids 4 Physical Exam Heart: Normal S1, Normal S2 General: Alert, Oriented X3 Neuro: Normal speech Psych/Mental Status: Mental status NL Assessment Assessment Problems Medical Problems: (1) Accelerated hypertension Status: Acute (2) Acute on chronic diastolic congestive heart failure due to valvular disease Status: Acute (3) Bilateral pleural effusion Status: Acute (4) Cardiomyopathy Status: Acute (5) COPD with acute exacerbation Status: Acute (6) End stage renal disease Status: Acute (7) GI bleed Status: Acute A/P: 1. Multiple myeloma, currently on chemo with velcade and well controlled.. 2. Dyspnea secondary to acute on chronic congestive heart failure, I do not think it is related to velcade or MM. He myeloma is under very good control. Appreciate cardiology management. . 3. End-stage renal disease, on hemodialysis. 4. Anemia due to GI bleed, monitor Hb - EGD 12/03/16 : s/p gastric bypass gastric ulcer below GE junction S/p cautery/endo-clip/ epi injection with cessation of bleeding. Hb better at 9.3, monitor. Bleeding resolved. 5. Thrombocytopenia - 68. Monitor. Agree with discharge plans, f/u with me 1 week. I d/w RN Comment Review of Relevant I have reviewed the following items ernesto (where applicable) has been applied. Labs Laboratory Tests Test 12/09/16 06:20 12/10/16 07:40 White Blood Count 6.7x10^3/uL (4.0-11.0) 8.4x10^3/uL (4.0-11.0) Red Blood Count 2.44x10^6/uL (3.50-5.40) 2.97x10^6/uL (3.50-5.40) Hemoglobin 7.8g/dL (12.0-15.5) 9.3g/dL (12.0-15.5) Hematocrit 24.1% (36.0-47.0) 29.6% (36.0-47.0) Mean Corpuscular Volume 99fL (79-100) 100fL (79-100) Mean Corpuscular Hemoglobin 32pg (25-35) 31pg (25-35) Mean Corpuscular Hemoglobin Concent 32g/dL (31-37) 32g/dL (31-37) Red Cell Distribution Width 22.1% (11.5-14.5) 21.3% (11.5-14.5) Platelet Count 69x10^3/uL (140-400) 68x10^3/uL (140-400) Neutrophils (%) (Auto) 80% (31-73) Lymphocytes (%) (Auto) 9% (24-48) Monocytes (%) (Auto) 10% (0-9) Eosinophils (%) (Auto) 1% (0-3) Basophils (%) (Auto) 0% (0-3) Neutrophils # (Auto) 5.4x10^3uL (1.8-7.7) Lymphocytes # (Auto) 0.6x10^3/uL (1.0-4.8) Monocytes # (Auto) 0.7x10^3/uL (0.0-1.1) Eosinophils # (Auto) 0.0x10^3/uL (0.0-0.7) Basophils # (Auto) 0.0x10^3/uL (0.0-0.2) Sodium Level 141mmol/L (136-145) 140mmol/L (136-145) Potassium Level 4.1mmol/L (3.5-5.1) 4.3mmol/L (3.5-5.1) Chloride Level 104mmol/L (98-107) 102mmol/L (98-107) Carbon Dioxide Level 29mmol/L (21-32) 26mmol/L (21-32) Anion Gap 8 (6-14) 12 (6-14) Blood Urea Nitrogen 24mg/dL (7-20) 37mg/dL (7-20) Creatinine 3.3mg/dL (0.6-1.0) 4.7mg/dL (0.6-1.0) Estimated GFR (Cockcroft-Gault) 15.4 10.2 Glucose Level 85mg/dL (70-99) 94mg/dL (70-99) Calcium Level 8.0mg/dL (8.5-10.1) 8.5mg/dL (8.5-10.1) Laboratory Tests Test 12/10/16 07:40 White Blood Count 8.4x10^3/uL (4.0-11.0) Red Blood Count 2.97x10^6/uL (3.50-5.40) Hemoglobin 9.3g/dL (12.0-15.5) Hematocrit 29.6% (36.0-47.0) Mean Corpuscular Volume 100fL (79-100) Mean Corpuscular Hemoglobin 31pg (25-35) Mean Corpuscular Hemoglobin Concent 32g/dL (31-37) Red Cell Distribution Width 21.3% (11.5-14.5) Platelet Count 68x10^3/uL (140-400) Sodium Level 140mmol/L (136-145) Potassium Level 4.3mmol/L (3.5-5.1) Chloride Level 102mmol/L (98-107) Carbon Dioxide Level 26mmol/L (21-32) Anion Gap 12 (6-14) Blood Urea Nitrogen 37mg/dL (7-20) Creatinine 4.7mg/dL (0.6-1.0) Estimated GFR (Cockcroft-Gault) 10.2 Glucose Level 94mg/dL (70-99) Calcium Level 8.5mg/dL (8.5-10.1) Microbiology 12/05/16 Blood Culture - Preliminary, Resulted NO GROWTH AFTER 4 DAYS 11/29/16 Gram Stain - Final, Complete 12/06/16 Urine Culture - Final, Complete 12/06/16 Urine Culture Result 1 (TENISHA) - Final, Complete Medications Current Medications Sodium Chloride (Iv Sodium Chloride 0.9% 1000ml Bag) 1,000 ml @ 100 mls/hr Q10H IV Last administered on 11/27/16t 19:49; Start 11/27/16 at 19:01; Stop at 05:00; Status DC Albuterol/ Ipratropium (Duoneb) 6 ml 1X ONCE NEB Last administered on 19:10; Start 11/27/16 at 19:30; Stop 11/27/16 at 19:31; Status DC Methylprednisolone Sodium Succinate (Solu-Medrol 125mg Vial) 125 mg 1X ONCE IV Last administered on 11/27/16 19:49; Start 11/27/16 at 19:30; Stop 11/27/16 at 19:31; Status DC Acetaminophen/ Hydrocodone Bitart (Lortab 7.5/325) 1 tab 1X ONCE PO Last administered on 11/27/16 20:29; Start 11/27/16 at 20:15; Stop 11/27/16 at 20:17; Status DC Lisinopril (Prinivil) 10 mg 1X ONCE PO Last administered on 11/27/16 21:09; Start 11/27/16 at 21:15; Stop 11/27/16 at 21:16; Status DC Amlodipine Besylate (Norvasc) 10 mg 1X ONCE PO Last administered on 11/27/16 21:08; Start 11/27/16 at 21:15; Stop 11/27/16 at 21:16; Status DC Clonidine HCl (Catapres) 0.3 mg 1X ONCE PO Last administered on 11/27/16 21:09 ; Start 11/27/16 at 21:15; Stop 11/27/16 at 21:16; Status DC Ondansetron HCl (Zofran) 4 mg PRN Q8HRS PRN IV NAUSEA/VOMITING Last administered on 11/28/16 18:24; Start 11/27/16 at 22:30; Stop 11/28/16 at 22:29; Status DC Fentanyl Citrate (Fentanyl 2ml Vial) 50 mcg PRN Q2HR PRN IV SEVERE PAIN Last administered on 11/28/16 21:31; Start 11/27/16 at 22:30; Stop 11/28/16 at 22:29; Status DC Acetaminophen (Tylenol) 650 mg PRN Q4HRS PRN PO FEVER; Start 11/27/16 at 22:30; Stop 11/28/16 at 22:29; Status DC Albuterol/ Ipratropium (Duoneb) 3 ml RTQID NEB Last administered on 11/29/16 06 :06; Start 11/28/16 at 08:00; Stop 11/29/16 at 07:59; Status DC Methylprednisolone Sodium Succinate (Solu-Medrol 40mg Vial) 60 mg Q6HRS IV Last administered on 12/03/16 00:24; Start 11/28/16 at 00:00; Stop 12/03/16 at 13:20; Status DC Diphenhydramine HCl (Benadryl) 25 mg 1X ONCE IVP Last administered on 23:30; Start 11/27/16 at 23:00; Stop 11/27/16 at 23:01; Status DC Diphenhydramine HCl (Benadryl) 25 mg PRN Q6HRS PRN IVP ITCHING Last administered on 12/02/16 02:37; Start 11/28/16 at 02:00 Albuterol Sulfate (Ventolin Neb Soln) 2.5 mg PRN Q4HRS PRN NEB SHORTNESS OF BREATH Last administered on 12/09/16 20:09; Start 11/28/16 at 05:15 Acetaminophen (Tylenol) 500 mg PRN Q6HRS PRN PO PAIN Last administered on 06:13; Start 11/28/16 at 07:15 Lactobacillus Acidophilus (Bacid, Maren-Bid) 1 tab TIDWMEALS PO Last administered on 12/10/16 12:14; Start 11/28/16 at 08:00 Acyclovir (Zovirax) 200 mg BID PO Last administered on 12/10/16 08:34; Start 11/28/16 at 09:00 Amlodipine Besylate (Norvasc) 10 mg HS PO Last administered on 12/09/16 20:39 ; Start 11/28/16 at 21:00 Clonidine HCl (Catapres) 0.3 mg TID PO Last administered on 11/28/16 20:54; Start 11/28/16 at 09:00; Stop 11/29/16 at 14:02; Status DC Darbepoetin Apolinar (Aranesp) 60 mcg Tu SQ Last administered on 12/05/16 21:26; Start 11/28/16 at 21:00 Diclofenac Epolamine (Flector) 1 patch BID TD ; Start 11/28/16 at 09:00; Stop 11/28/16 at 14:38; Status DC Furosemide (Lasix) 80 mg TID@,, PO Last administered on 12/10/16 12:14; Start 11/28/16 at 09:00 Acetaminophen/ Hydrocodone Bitart (Lortab 7.5/325) 1 tab PRN Q4HRS PRN PO SEVERE PAIN Last administered on 12/10/16 08:24; Start 11/28/16 at 07:15 Isosorbide Mononitrate (Imdur) 30 mg DAILY PO Last administered on 12/10/16 08 :25; Start 11/28/16 at 09:00 Lidocaine/ Prilocaine (Emla) 1 oniel PRN QID PRN TP pain; Start 11/28/16 at 07:15 Lisinopril (Prinivil) 10 mg DAILY PO Last administered on 12/10/16 08:23; Start 11/28/16 at 09:00 Loperamide HCl (Imodium) 2 mg PRN Q15MIN PRN PO DIARRHEA; Start 11/28/16 at 07: 15 Lorazepam (Ativan) 1 mg PRN Q6HRS PRN PO VOMITING Last administered on 21:06; Start 11/28/16 at 07:15 Methocarbamol (Robaxin) 1,500 mg PRN QID PRN PO SEVERE PAIN Last administered on 12/10/16 08:22; Start 11/28/16 at 07:15 Paroxetine HCl (Paxil) 20 mg QHS PO Last administered on 12/09/16 20:40; Start 11/28/16 at 21:00 Sevelamer Carbonate (Renvela) 800 mg TIDWMEALS PO Last administered on 12:14; Start 11/28/16 at 08:00 Dicyclomine HCl (Bentyl) 20 mg PRN TID PRN PO Stomach pain Last administered on 11/28/16 09:02; Start 11/28/16 at 07:45 Diphenhydramine HCl (Benadryl) 50 mg QHS PO Last administered on 12/09/16 20: 39; Start 11/28/16 at 21:00 Non-Formulary Medication 2 puff DAILY IH ; Start 11/28/16 at 09:00; Stop 11/28/16 at 09:00; Status DC Folic Acid/ Multivitamins/Vit B12 (Nephro-Sheree) 1 tab DAILY PO Last administered on 12/10/16 08:22; Start 11/28/16 at 09:00 Cetirizine HCl (Zyrtec) 10 mg QHS PO Last administered on 12/09/16 20:40; Start 11/28/16 at 21:00 Non-Formulary Medication 8 mg PRN BID PRN PO NAUSEA/VOMITING; Start 11/28/16 at 07:15; Stop 11/30/16 at 10:18; Status DC Budesonide 0.5 mg 0.5 mg RTBID NEB Last administered on 12/10/16 07:54; Start 11/28/16 at 08:00 Magnesium Sulfate/ Dextrose (Magnesium Sulfate PREMIX 2GM) 50 ml @ 25 mls/hr PRN DAILY PRN IV for Mag < 1.7 on am labs; Start 11/28/16 at 10:45 Hydralazine HCl (Apresoline) 50 mg TID PO ; Start 11/28/16 at 14:00; Stop at 15:49; Status DC Hydralazine HCl (Apresoline) 10 mg PRN Q4HRS PRN IVP ELEVATED BP, SEE COMMENTS Last administered on 12/05/16 00:42; Start 11/28/16 at 12:00 Hydralazine HCl 25 mg 25 mg TID PO Last administered on 11/30/16 14:14; Start 11/28/16 at 21:00; Stop 11/30/16 at 15:13; Status DC Sodium Chloride (Iv Sodium Chloride 0.9% 1000ml Bag) 1,000 ml @ 1,000 mls/hr Q1H PRN IV hypotension; Start 11/29/16 at 08:51; Stop 11/29/16 at 14:50; Status DC Diphenhydramine HCl (Benadryl) 25 mg 1X PRN PRN IV ITCHING; Start 11/29/16 at 09 :00; Stop 11/30/16 at 08:59; Status DC Diphenhydramine HCl (Benadryl) 25 mg 1X PRN PRN IV ITCHING; Start 11/29/16 at 09 :00; Stop 11/30/16 at 08:59; Status DC Info (PHARMACY MONITORING -- do not chart) 1 each PRN DAILY PRN MC SEE COMMENTS ; Start 11/29/16 at 09:00; Stop 12/05/16 at 08:43; Status DC Info (PHARMACY MONITORING -- do not chart) 1 each PRN DAILY PRN MC SEE COMMENTS ; Start 11/29/16 at 09:00; Status UNV Fentanyl Citrate (Fentanyl 2ml Vial) 25 mcg PRN Q5MIN PRN IV MILD PAIN; Start 11/29/16 at 09:30; Stop 11/30/16 at 03:58; Status DC Fentanyl Citrate 50 mcg 50 mcg PRN Q5MIN PRN IV MODERATE PAIN Last administered on 11/29/16 17:38; Start 11/29/16 at 09:30; Stop 11/30/16 at 03:58; Status DC Lactated Ringer's (Iv Lactated Ringers) 1,000 ml @ 0 mls/hr Q0M IV ; Start 11/29 at 09:16; Stop 11/29/16 at 21:15; Status DC Lidocaine HCl 2 ml 1X PRN PRN ID IV START; Start 11/29/16 at 09:30; Stop at 03:58; Status DC Prochlorperazine Edisylate (Compazine) 5 mg PACU PRN PRN IV NAUSEA; Start at 09:30; Stop 11/30/16 at 03:58; Status DC Fentanyl Citrate (Fentanyl 2ml Vial) 50 mcg PRN Q2HR PRN IV PAIN Last administered on 12/01/16 13:31; Start 11/29/16 at 10:30; Stop 12/01/16 at 17:25 ; Status DC Ondansetron HCl (Zofran) 4 mg PRN Q6HRS PRN IV NAUSEA/VOMITING Last administered on 11/29/16 10:59; Start 11/29/16 at 10:30; Stop 11/29/16 at 14:41; Status DC Lidocaine/Sodium Bicarbonate (Buffered Lidocaine 1%) 3 ml 1X ONCE IJ Last administered on 11/29/16 14:32; Start 11/29/16 at 12:45; Stop 11/29/16 at 12:46; Status DC Bupivacaine HCl/ Epinephrine Bitart (Sensorcain-Mpf Epi 0.5%-[id number]) 30 ml STK -MED ONCE .ROUTE Last administered on 11/29/16 16:47; Start 11/29/16 at 13:57; Stop 11/29/16 at 13:58; Status DC Carvedilol (Coreg) 12.5 mg BIDWMEALS PO Last administered on 11/30/16 09:29; Start 11/29/16 at 17:00; Stop 11/30/16 at 15:13; Status DC Clonidine HCl 1 patch 1 patch WEEKLY TD Last administered on 12/06/16 10:51; Start 11/29/16 at 14:30 Propofol (Diprivan) 20 ml @ As Directed STK-MED ONCE IV ; Start 11/29/16 at 14:14 ; Stop 11/29/16 at 14:15; Status DC Fentanyl Citrate (Fentanyl 2ml Vial) 100 mcg STK-MED ONCE .ROUTE ; Start at 14:14; Stop 11/29/16 at 14:15; Status DC Ondansetron HCl (Zofran) 4 mg STK-MED ONCE .ROUTE ; Start 11/29/16 at 14:14; Stop 11/29/16 at 14:15; Status DC Ondansetron HCl (Zofran) 8 mg PRN Q6HRS PRN IV NAUSEA/VOMITING Last administered on 12/05/16 03:28; Start 11/29/16 at 14:45; Stop 12/05/16 at 08:51 ; Status DC Midazolam HCl (Versed) 2 mg STK-MED ONCE .ROUTE ; Start 11/29/16 at 16:44; Stop 11/29/16 at 16:45; Status DC Pantoprazole Sodium (Protonix) 40 mg DAILYAC PO Last administered on 12/02/16 10:37; Start 11/30/16 at 09:30; Stop 12/03/16 at 07:43; Status DC Ondansetron HCl (Zofran Odt) 8 mg PRN BID PRN PO NAUSEA/VOMITING Last administered on 12/08/16 20:59; Start 11/30/16 at 10:30 Carvedilol (Coreg) 25 mg BIDWMEALS PO Last administered on 12/10/16 08:23; Start 11/30/16 at 17:00 Hydralazine HCl (Apresoline) 50 mg TID PO Last administered on 12/10/16 13:22 ; Start 11/30/16 at 15:30 Aspirin (Ecotrin) 81 mg DAILYWBKFT PO Last administered on 12/10/16 08:23; Start 11/30/16 at 16:00 Regadenoson (Lexiscan) 0.4 mg 1X ONCE IV Last administered on 12/01/16 09:28 ; Start 12/01/16 at 08:15; Stop 12/01/16 at 08:16; Status DC Levothyroxine Sodium 100 mcg 100 mcg DAILY07 PO Last administered on 12/10/16 05:59; Start 12/01/16 at 14:00 Sodium Chloride 1,000 ml @ 1,000 mls/hr Q1H PRN IV hypotension; Start 12/01/16 at 15:26; Stop 12/01/16 at 21:00; Status DC Sodium Chloride (Iv Sodium Chloride 0.9% 1000ml Bag) 1,000 ml @ 400 mls/hr Q2H30M PRN IV PATENCY; Start 12/01/16 at 15:26; Stop 12/01/16 at 21:00; Status DC Info (PHARMACY MONITORING -- do not chart) 1 each PRN DAILY PRN MC SEE COMMENTS ; Start 12/01/16 at 15:30; Status UNV Info (PHARMACY MONITORING -- do not chart) 1 each PRN DAILY PRN MC SEE COMMENTS ; Start 12/01/16 at 15:30; Status UNV Fentanyl Citrate (Fentanyl 2ml Vial) 50 mcg PRN Q4HRS PRN IV PAIN Last administered on 12/08/16 04:42; Start 12/01/16 at 17:30 Montelukast Sodium (Singulair) 10 mg QHS PO Last administered on 12/09/16 20: 40; Start 12/02/16 at 21:00; Stop 12/10/16 at 07:16; Status DC Pantoprazole Sodium 40 mg 40 mg DAILYAC IVP ; Start 12/03/16 at 08:00; Stop 10/07 at 08:00; Status DC Pantoprazole Sodium 80 mg/ Sodium Chloride 100 ml @ 10 mls/hr Q10H IV Last administered on 12/09/16 23:59; Start 12/03/16 at 08:00 Propofol (Diprivan) 20 ml @ As Directed STK-MED ONCE IV ; Start 12/03/16 at 09: 23; Stop 12/03/16 at 09:24; Status DC Lidocaine HCl (Lidocaine Pf 2% Vial) 5 ml STK-MED ONCE .ROUTE ; Start 12/03/16 at 09:24; Stop 12/03/16 at 09:25; Status DC Ephedrine Sulfate 50 mg STK-MED ONCE IV ; Start 12/03/16 at 09:24; Stop at 09:25; Status DC Morphine Sulfate 2 mg 2 mg PRN Q2HR PRN IV PAIN Last administered on 12/09/16 08:34; Start 12/03/16 at 10:30 Sodium Chloride 1,000 ml @ 1,000 mls/hr Q1H PRN IV hypotension; Start 12/03/16 at 17:19; Stop 12/03/16 at 23:18; Status DC Sodium Chloride (Iv Sodium Chloride 0.9% 1000ml Bag) 1,000 ml @ 400 mls/hr Q2H30M PRN IV PATENCY; Start 12/03/16 at 17:19; Stop 12/04/16 at 05:18; Status DC Info (PHARMACY MONITORING -- do not chart) 1 each PRN DAILY PRN MC SEE COMMENTS ; Start 12/03/16 at 17:30; Status UNV Info 1 each 1 each PRN DAILY PRN MC SEE COMMENTS; Start 12/03/16 at 17:30; Status UNV Amino Acids/ Glycerin/ Electrolytes (Procalamine) 1,000 ml @ 80 mls/hr [id number] IV Last administered on 12/03/16 21:05; Start 12/03/16 at 19:45; Stop at 13:05; Status DC Prochlorperazine (Compazine) 25 mg PRN Q12HR PRN W[place] NAUSEA/VOMITING; Start 10/07 at 22:00 Lidocaine HCl (Xylocaine-Mpf 1% Vial) 2 ml STK-MED ONCE .ROUTE ; Start 12/04/16 at 14:48; Stop 12/04/16 at 14:49; Status DC Iohexol (Omnipaque 350 Mg/ml) 90 ml 1X ONCE IV Last administered on 12/04/16 16:17; Start 12/04/16 at 16:00; Stop 12/04/16 at 16:01; Status DC Info (Do NOT chart on this entry -- for MONITORING) 1 each PRN DAILY PRN MC SEE COMMENTS; Start 12/04/16 at 16:00; Stop 12/06/16 at 15:59; Status DC Gelatin (Gelfoam Size 12-7mm) 1 each STK-MED ONCE .ROUTE ; Start 12/04/16 at 17 :09; Stop 12/04/16 at 17:10; Status DC Midazolam HCl (Versed) 2 mg STK-MED ONCE .ROUTE ; Start 12/04/16 at 17:10; Stop 12/04/16 at 17:11; Status DC Heparin Sodium/ Sodium Chloride 1,000 unit 1X ONCE IART Last administered on 20:00; Start 12/04/16 at 17:15; Stop 12/04/16 at 17:16; Status DC Lidocaine/Sodium Bicarbonate (Buffered Lidocaine 1%) 20 ml 1X ONCE IJ Last administered on 12/04/16 20:00; Start 12/04/16 at 17:15; Stop 12/04/16 at 17:16 ; Status DC Midazolam HCl (Versed) 2 mg 1X ONCE IV Last administered on 12/04/16 20:02; Start 12/04/16 at 17:15; Stop 12/04/16 at 17:16; Status DC Fentanyl Citrate (Fentanyl 2ml Vial) 100 mcg 1X ONCE IV Last administered on 20:02; Start 12/04/16 at 17:15; Stop 12/04/16 at 17:16; Status DC Iohexol (Omnipaque 300 Mg/ml) 100 ml 1X ONCE IART Last administered on 20:03; Start 12/04/16 at 17:15; Stop 12/04/16 at 17:16; Status DC Info 1 each 1 each PRN DAILY PRN MC SEE COMMENTS; Start 12/04/16 at 17:15; Stop 12/06/16 at 17:14; Status Cancel Heparin Sodium/ Sodium Chloride 1,500 ml @ As Directed STK-MED ONCE .ROUTE ; Start 12/04/16 at 17:13; Stop 12/04/16 at 17:14; Status DC Diphenhydramine HCl (Benadryl) 25 mg 1X ONCE IVP Last administered on 20:01; Start 12/04/16 at 18:15; Stop 12/04/16 at 18:16; Status DC Info (PHARMACY MONITORING -- do not chart) 1 each PRN DAILY PRN MC SEE COMMENTS ; Start 12/04/16 at 21:45 Ondansetron HCl (Zofran) 8 mg PRN Q4HRS PRN IV NAUSEA/VOMITING Last administered on 12/10/16 08:24; Start 12/05/16 at 09:00 Alteplase, Recombinant (Cathflo) 2 mg 1X ONCE INT CAT Last administered on 03:14; Start 12/07/16 at 03:15; Stop 12/07/16 at 03:16; Status DC Alteplase, Recombinant (Cathflo) 2 mg 1X ONCE INT CAT ; Start 12/07/16 at 04:30 ; Stop 12/07/16 at 04:31; Status DC Phenyleph/Shark Oil/Min Oil/Petrol (Preparation H) 1 oniel BID PRN RC RECTAL PAIN Last administered on 12/07/16 09:35; Start 12/07/16 at 08:15 Iohexol 90 ml 90 ml 1X ONCE IV ; Start 12/07/16 at 13:00; Stop 12/07/16 at 13: 11; Status DC Sodium Chloride (Iv Sodium Chloride 0.9% 1000ml Bag) 1,000 ml @ 1,000 mls/hr Q1H PRN IV hypotension; Start 12/08/16 at 09:04; Stop 12/08/16 at 15:03; Status DC Diphenhydramine HCl (Benadryl) 25 mg 1X PRN PRN IV ITCHING; Start 12/08/16 at 09:15; Stop 12/09/16 at 09:14; Status DC Diphenhydramine HCl 25 mg 25 mg 1X PRN PRN IV ITCHING; Start 12/08/16 at 09:15 ; Stop 12/09/16 at 09:14; Status DC Sodium Chloride (Iv Sodium Chloride 0.9% 1000ml Bag) 1,000 ml @ 400 mls/hr Q2H30M PRN IV PATENCY; Start 12/08/16 at 09:04; Stop 12/08/16 at 21:03; Status DC Info (PHARMACY MONITORING -- do not chart) 1 each PRN DAILY PRN MC SEE COMMENTS ; Start 12/08/16 at 09:15; Status UNV Lidocaine HCl (Xylocaine-Mpf 1% Vial) 2 ml 1X ONCE INJ Last administered on 09:49; Start 12/08/16 at 09:15; Stop 12/08/16 at 09:23; Status DC Alteplase, Recombinant (Cathflo) 2 mg 1X ONCE INT CAT Last administered on 16:14; Start 12/08/16 at 16:15; Stop 12/08/16 at 16:18; Status DC Montelukast Sodium (Singulair) 10 mg QHS PO ; Start 12/09/16 at 21:00 Penicillin V Potassium 500 mg 500 mg Q8HRS PO Last administered on 12/10/16 13 :21; Start 12/09/16 at 14:00 Alteplase, Recombinant/ Sodium Chloride (Cathflo/Iv Sodium Chloride 0.9% 100ml) 100 ml @ 10 mls/hr 1X ONCE IV ; Start 12/10/16 at 06:15; Stop 12/10/16 at 16: 14; Status UNV Alteplase, Recombinant (Cathflo) 2 mg 1X ONCE INT CAT Last administered on 06:17; Start 12/10/16 at 06:45; Stop 12/10/16 at 06:46; Status DC Active Scripts Active Penicillin V Potassium 250 Mg Tablet 500 Mg PO Q8HRS Hydralazine Hcl 50 Mg Tablet 50 Mg PO TID Synthroid (Levothyroxine Sodium) 100 Mcg Tablet 100 Mcg PO DAILY07 Clonidine Tts-2 (Clonidine) 1 Each Patch.tdwk 1 Patch TD WEEKLY Aspirin Ec (Aspirin) 81 Mg Tablet. 81 Mg PO DAILYWBKFT Pantoprazole Sodium 40 Mg Tablet.dr 40 Mg PO DAILYAC Montelukast Sodium Tablet (Montelukast Sodium) 10 Mg Tablet 10 Mg PO QHS Carvedilol 12.5 Mg Tablet 25 Mg PO BIDWMEALS Lisinopril 10 Mg Tablet 10 Mg PO DAILY 30 Days Hydrocodone-Apap 7.5-325 (Hydrocodone Bit/Acetaminophen) 1 Each Tablet 1 Tab PO PRN Q4HRS PRN 14 Days Flector (Diclofenac Epolamine) 1 Each Patch.td12 1 Patch TD BID 30 Days Aranesp Syringe (Darbepoetin Apolinar In Polysorbat) 60 Mcg/0.3 Ml Disp.syrin 60 Mcg SQ WEEKLYHS 30 Days Furosemide 80 Mg Tablet 80 Mg PO TID 30 Days Loperamide (Loperamide Hcl) 2 Mg Capsule 2 Mg PO PRN Q15MIN PRN 30 Days Isosorbide Mononitrate Er (Isosorbide Mononitrate) 30 Mg Tab.er.24h 30 Mg PO DAILY 30 Days Maren-Bid Caplet (Acidoph/L.bulg/Bif.b/S.thermop) 1 Each Tablet 1 Tab PO TIDWMEALS 30 Days Reported Lorazepam 1 Mg Tablet 1 Mg PO PRN Q6HRS PRN Renvela (Sevelamer Carbonate) 800 Mg Tablet 2 Tab PO TID Lidocaine-Prilocaine Cream (Lidocaine/Prilocaine) 30 Gm Cream..g. 1 Oniel TP UD Dicyclomine Hcl 20 Mg Tablet 1 Tab PO TID PRN Amlodipine Besylate 10 Mg Tablet 10 Mg PO HS Renal Caps Softgel (Folic Acid/Vitamin B Comp W-C) 1 Mg Capsule 1 Cap PO DAILY Advair 250-50 Diskus (Fluticasone/Salmeterol) 1 Each Disk.w.dev 2 Puff IH DAILY Proair Hfa Inhaler (Albuterol Sulfate) 8.5 Gm Hfa.aer.ad 2 Puff INH PRN Q6HRS PRN Acyclovir 200 Mg Capsule 200 Mg PO BID Paroxetine Hcl 20 Mg Tablet 20 Mg PO QHS Nighttime Sleep Aid (Diphenhydramine Hcl) 50 Mg Capsule 50 Mg PO QHS Ondansetron Hcl 8 Mg Tablet 8 Mg PO BID PRN Methocarbamol 750 Mg Tablet 1,500 Mg PO QID PRN Tylenol Extra Strength (Acetaminophen) 500 Mg Tablet 500 Mg PO Q6HRS PRN Claritin (Loratadine) 10 Mg Capsule 10 Mg PO HS Vitals/I & O Vital Sign - Last 24 Hours 12/09/16 12/09/16 12/09/16 12/09/16 14:36 15:19 17:41 19:00 Temp 97.9 99.7 97.9 99.7 Pulse 70 71 71 74 Resp 18 20 B/P 140/67 140/67 140/67 149/71 Pulse Ox 96 98 O2 Delivery Nasal Cannula Nasal Cannula O2 Flow Rate 2.0 12/09/16 12/09/16 12/09/16 12/09/16 19:46 20:09 20:11 20:39 Pulse 74 Resp 18 B/P 149/71 Pulse Ox 98 98 O2 Delivery Nasal Cannula Nasal Cannula Nasal Cannula O2 Flow Rate 1.0 2.0 2.0 12/09/16 12/09/16 12/09/16 12/09/16 20:39 20:51 23:00 23:04 Temp 98.4 98.4 Pulse 74 68 Resp 18 20 B/P 149/71 139/60 Pulse Ox 98 O2 Delivery Nasal Cannula Nasal Cannula Nasal Cannula O2 Flow Rate 1.0 1.0 12/10/16 12/10/16 12/10/16 12/10/16 03:08 07:00 07:54 08:00 Temp 98.1 97.6 98.1 97.6 Pulse 69 74 Resp 18 B/P 145/67 198/72 Pulse Ox 97 100 97 O2 Delivery Nasal Cannula Nasal Cannula Nasal Cannula Nasal Cannula O2 Flow Rate 2.0 1.5 2.0 12/10/16 12/10/16 12/10/16 12/10/16 08:23 08:23 08:23 08:25 Pulse 74 74 74 74 B/P 198/72 198/72 198/72 198/72 12/10/16 12/10/16 11:00 13:22 Temp 98.5 98.5 Pulse 68 68 B/P 125/59 125/59 Pulse Ox 96 O2 Delivery Nasal Cannula O2 Flow Rate 2.0 Intake and Output 12/09/16 12/09/16 12/10/16 15:00 23:00 07:00 Intake Total 240 ml 920 ml 702 ml Output Total 200 ml Balance 240 ml 720 ml 702 ml JONATHAN KIRK MD Dec 10, 2016 13:48
== END 2016-12-10 15:00 | disposition home or self-care (01) | DRG 377 ==
LOC: ER 17:22 → 6 SOUTH 20:50 → 2 SOUTH 11-30 15:14 → 6 SOUTH 12-02 08:02 → 1 WEST ICU 12-04 12:03 → 5 NORTH 12-05 16:32
PROVIDERS: ADMIT Family Medicine; ATTEND Family Medicine
PROC: 0W9B30Z Drainage of Left Pleural Cavity with Drainage Device, Percutaneous Approach (ICD-10-PCS; 2016-11-29)
PROC: 0HB7XZX Excision of Abdomen Skin, External Approach, Diagnostic (ICD-10-PCS; principal; 2016-11-29 18:00)
PROC: 0W3P8ZZ Control Bleeding in Gastrointestinal Tract, Via Natural or Artificial Opening Endoscopic (ICD-10-PCS; 2016-12-03)
PROC: 3E0G8GC Introduction of Other Therapeutic Substance into Upper GI, Via Natural or Artificial Opening Endoscopic (ICD-10-PCS; 2016-12-03)
PROC: 30233L1 Transfusion of Nonautologous Fresh Plasma into Peripheral Vein, Percutaneous Approach (ICD-10-PCS; 2016-12-04)
PROC: 30233N1 Transfusion of Nonautologous Red Blood Cells into Peripheral Vein, Percutaneous Approach (ICD-10-PCS; 2016-12-04)
PROC: 30233K1 Transfusion of Nonautologous Frozen Plasma into Peripheral Vein, Percutaneous Approach (ICD-10-PCS; 2016-12-04)
DX: K25.4 Chronic or unspecified gastric ulcer with hemorrhage (principal); N18.6 End stage renal disease; I50.43 Acute on chronic combined systolic (congestive) and diastolic (congestive) heart failure; J44.0 Chronic obstructive pulmonary disease with (acute) lower respiratory infection; J96.10 Chronic respiratory failure, unspecified whether with hypoxia or hypercapnia; I42.9 Cardiomyopathy, unspecified; C90.01 Multiple myeloma in remission; D62 Acute posthemorrhagic anemia; I13.2 Hypertensive heart and chronic kidney disease with heart failure and with stage 5 chronic kidney disease, or end stage renal disease; I47.1 Supraventricular tachycardia; J44.1 Chronic obstructive pulmonary disease with (acute) exacerbation; J45.901 Unspecified asthma with (acute) exacerbation; J98.11 Atelectasis; K22.10 Ulcer of esophagus without bleeding; Z94.84 Stem cells transplant status; M19.90 Unspecified osteoarthritis, unspecified site; D63.1 Anemia in chronic kidney disease; D69.6 Thrombocytopenia, unspecified; D72.819 Decreased white blood cell count, unspecified; E03.9 Hypothyroidism, unspecified; E21.3 Hyperparathyroidism, unspecified; F32.9 Major depressive disorder, single episode, unspecified; F41.9 Anxiety disorder, unspecified; G89.29 Other chronic pain; I08.1 Rheumatic disorders of both mitral and tricuspid valves; I27.2 Other secondary pulmonary hypertension; I45.81 Long QT syndrome; K21.9 Gastro-esophageal reflux disease without esophagitis; D53.9 Nutritional anemia, unspecified; K28.9 Gastrojejunal ulcer, unspecified as acute or chronic, without hemorrhage or perforation; K25.9 Gastric ulcer, unspecified as acute or chronic, without hemorrhage or perforation; K58.9 Irritable bowel syndrome, unspecified; K64.9 Unspecified hemorrhoids; Z79.82 Long term (current) use of aspirin; Z82.49 Family history of ischemic heart disease and other diseases of the circulatory system; Z79.899 Other long term (current) drug therapy; Z91.018 Allergy to other foods; Z88.6 Allergy status to analgesic agent; Z88.2 Allergy status to sulfonamides; Z87.11 Personal history of peptic ulcer disease; Z90.49 Acquired absence of other specified parts of digestive tract; Z92.21 Personal history of antineoplastic chemotherapy; Z98.84 Bariatric surgery status; Z99.2 Dependence on renal dialysis; Z99.81 Dependence on supplemental oxygen
CPT/HCPCS: 32555; 36247; 36248; 36415; 37244; 71010; 71250; 74174; 75726; 75774; 76937; 78452; 80048; 80053; 80061; 80069; 81001; 82553; 83615; 83735; 83880; 84100; 84157; 84443; 84484; 85007; 85014; 85018; 85027; 85610; 86850; 86900; 86901; 86920; 86927; 87040; 87071; 87075; 87086; 87205; 87641; 87804; 88112; 88305; 88313; 88342; 93005; 93017; 93306; 94250; 94640; 94760; 96374; 96375; 96376; A9500; C1713; C1760; C1769; C1892; C1894; C9113; G0269; J0360; J0881; J1200; J2250; J2270; J2405; J2704; J2785; J2920; J2930; J2997; J3010; J3490; J7030; J7620; P9017; P9040; Q0162; Q0163; Q9967; 99285-25; G0641

== ENCOUNTER → 2017-02-07 | Outpatient (CLI) | payer MEDICARE, OTHER ==
[~2017-02-07] MED LIST changes: +ASPI81TA9 PO; +CARV12.52 PO; +CLON1PAT2 TD; +HYDR-2869 PO; +LEVO100T PO; +MONT10TA9 PO; +PANT40TA5 PO; -PARO20TA2 PO; +PARO20TA3 PO; +PENI250T2 PO
--- NOTE | 2017-02-07 15:08 | RAD ---
Indication difficulty breathing. PA and lateral views of the chest were obtained. Comparison is made to a single view examination 11/29/2016. There is mild cardiomegaly, similar. There are changes suggesting mild congestive heart failure. A consolidated pneumonia is not seen. There are probable tiny pleural effusions. IMPRESSION: Stable mild cardiomegaly. Suspect mild congestive heart failure. Probable small bilateral pleural effusions
== END | disposition home or self-care (01) ==
LOC: RAD 14:15
PROVIDERS: ATTEND Family Medicine
DX: J45.909 Unspecified asthma, uncomplicated (principal); J90 Pleural effusion, not elsewhere classified; I51.7 Cardiomegaly; R06.00 Dyspnea, unspecified
CPT/HCPCS: 71020

== ENCOUNTER → 2017-05-22 | Outpatient (CLI) | payer MEDICARE, OTHER ==
[~2017-05-22] MED LIST changes: +ASPI-612 PO; -ASPI81TA9 PO; +BENZ100C15 PO; -BENZ100C2 PO; -DICL1PAT4 TD; +FLECTOR1 EACH TD; -HYDR-2666; +HYDR-2758; -LEVO500T38 PO; +LEVO500T59 PO; -NYST1000 PO; +NYST100054 PO; -ONDA-36 PO; +ONDA8TAB14 PO; -PENI250T2 PO; +PENI250T85 PO
--- NOTE | 2017-05-22 11:17 | RAD ---
Thyroid ultrasound 05/22/2017 Clinical indication: Hyperparathyroidism. Comparison: None. Findings: Maximal AP thickness of the isthmus 0.4 cm. Right lobe of the thyroid measures 3.2 x 1.8 x 0.7 cm. Left lobe of the thyroid measures 2.6 x 1.1 x 0.8 cm. Just inferior to the left lobe of the thyroid, there is a mild a prominent reactive-appearing lymph nodes measuring up to 1 cm. Impression: No sonographic evidence to suggest parathyroid adenoma. If further evaluation is clinically indicated, nuclear medicine sestamibi parathyroid scan could be performed.
== END | disposition home or self-care (01) ==
LOC: US 10:15
PROVIDERS: ATTEND Surgery
DX: E21.3 Hyperparathyroidism, unspecified (principal)
CPT/HCPCS: 76536

== ENCOUNTER → 2017-05-22 | Outpatient (CLI) | payer MEDICARE, OTHER ==
--- NOTE | 2017-05-22 14:50 | RAD ---
Chest, 2 views, 05/22/2017: History: Shortness of breath Comparison is made to a study from 02/07/2017. The heart is mildly enlarged. There is upper lobe pulmonary venous redistribution. There is blunting of the costophrenic angles bilaterally compatible with small pleural effusions. There is mild underlying linear atelectasis in the right base. Mild degenerative changes are present in the spine. IMPRESSION: Ongoing or recurrent mild congestive heart failure with small pleural effusions.
== END | disposition home or self-care (01) ==
LOC: RAD 10:26
PROVIDERS: ATTEND Internal Medicine Pulmonary Disease
DX: I50.9 Heart failure, unspecified (principal); J90 Pleural effusion, not elsewhere classified
CPT/HCPCS: 71020

== ENCOUNTER 2017-06-11 05:25 | Inpatient (IN) | payer MEDICARE, OTHER ==
[2017-06-11] VITALS (10 sets, daily range): BP systolic 107–165; BP diastolic 63–92
[~2017-06-11] VITALS: Ht 162.6 cm; Wt 72.3 kg
[2017-06-11] MEDS ORDERED: fentaNYL PF VIAL 100 MCG/2 ML VIAL IV PRN ×2 (05:45→07:15)
[2017-06-11 05:52] LABS: BASO # 0.1 x10^3/uL (0.0-0.2); BASO % 1 % (0-3); EOS % 3 % (0-3); HEMATOCRIT 30.9 % (36.0-47.0); HEMOGLOBIN 9.8 g/dL (12.0-15.5); LYMPH # 1.1 x10^3/uL (1.0-4.8); LYMPH % 16 % (24-48); MEAN CORPUSCULAR HEMOGLOBIN 33 pg (25-35); MEAN CORPUSCULAR HGB CONC 32 g/dL (31-37); MEAN CORPUSCULAR VOLUME 106 fL (79-100); MONO % 11 % (0-9); NEUT % 68 % (31-73); PLATELET COUNT 139 x10^3/uL (140-400); RED BLOOD COUNT 2.93 x10^6/uL (3.50-5.40); RED CELL DISTRIBUTION WIDTH 18.7 % (11.5-14.5); WHITE BLOOD COUNT 6.6 x10^3/uL (4.0-11.0)
[2017-06-11 06:01] LABS: CALCIUM 8.5 mg/dL (8.5-10.1); CREATININE 6.6 mg/dL (0.6-1.0); GFR 6.9; POTASSIUM 4.9 mmol/L (3.5-5.1)
[2017-06-11 06:05] LABS: INR 1.2 (0.8-1.1); PROTHROMBIN TIME PATIENT 14.8 SEC (11.7-14.0)
[2017-06-11] MEDS ORDERED: ACETAMINOPHEN 325 MG TABLET. PO PRN (07:15)
--- NOTE | 2017-06-11 08:12 | PDOC ---
PROGRESS NOTES Subjective Subjective Patient c/o pain in left arm and back, requesting pain meds. Objective Objective Vital Signs Date Time Temp Pulse Resp B/P (MAP) Pulse Ox O2 Delivery O2 Flow Rate FiO2 06/11/17 06:23 86 16 130/74 (92) 98 Nasal Cannula 3.0 06/11/17 05:25 98.3 98.3 Physical Exam Abdomen: Normal bowel sounds, Soft, No tenderness Heart: Regular rate Extremities: No edema, Other (pressure dressing in place left upper arm) General: Alert, Oriented X3, No acute distress Lungs: Clear to auscultation Assessment Assessment Problems Medical Problems: (1) Hemorrhage of arteriovenous fistula Status: Acute Plan Plan of Care 1. Bleeding from fistula - patient reports spontaneous bleeding started this AM at home when she removed a band aide and a scab was pulled off. ER able to stop bleeding and apply pressure dressing. Dr Altman to see patient today for further tx. Check CBC in AM. 2. ESRD - dialysis was due today, Dr Alanis consulted. 3. fibromyalgia with chronic pain - continue her home meds for this. 4. chronic anxiety and depression - stable, continue home meds. 5. HTN - resume home meds when accurate medication list is available. 6. asthma - stable, continue nebs. 7. hx multiple myeloma - stable. Comment Review of Relevant I have reviewed the following items ernesto (where applicable) has been applied. Labs Laboratory Tests Test 06/11/17 05:30 White Blood Count 6.6 x10^3/uL (4.0-11.0) Red Blood Count 2.93 x10^6/uL (3.50-5.40) Hemoglobin 9.8 g/dL (12.0-15.5) Hematocrit 30.9 % (36.0-47.0) Mean Corpuscular Volume 106 fL (79-100) Mean Corpuscular Hemoglobin 33 pg (25-35) Mean Corpuscular Hemoglobin Concent 32 g/dL (31-37) Red Cell Distribution Width 18.7 % (11.5-14.5) Platelet Count 139 x10^3/uL (140-400) Neutrophils (%) (Auto) 68 % (31-73) Lymphocytes (%) (Auto) 16 % (24-48) Monocytes (%) (Auto) 11 % (0-9) Eosinophils (%) (Auto) 3 % (0-3) Basophils (%) (Auto) 1 % (0-3) Neutrophils # (Auto) 4.5 x10^3uL (1.8-7.7) Lymphocytes # (Auto) 1.1 x10^3/uL (1.0-4.8) Monocytes # (Auto) 0.7 x10^3/uL (0.0-1.1) Eosinophils # (Auto) 0.2 x10^3/uL (0.0-0.7) Basophils # (Auto) 0.1 x10^3/uL (0.0-0.2) Prothrombin Time 14.8 SEC (11.7-14.0) Prothromb Time International Ratio 1.2 (0.8-1.1) Activated Partial Thromboplast Time 32 SEC (24-38) Sodium Level 138 mmol/L (136-145) Potassium Level 4.9 mmol/L (3.5-5.1) Chloride Level 102 mmol/L (98-107) Carbon Dioxide Level 21 mmol/L (21-32) Anion Gap 15 (6-14) Blood Urea Nitrogen 63 mg/dL (7-20) Creatinine 6.6 mg/dL (0.6-1.0) Estimated GFR (Cockcroft-Gault) 6.9 Glucose Level 85 mg/dL (70-99) Calcium Level 8.5 mg/dL (8.5-10.1) Laboratory Tests Test 06/11/17 05:30 White Blood Count 6.6 x10^3/uL (4.0-11.0) Red Blood Count 2.93 x10^6/uL (3.50-5.40) Hemoglobin 9.8 g/dL (12.0-15.5) Hematocrit 30.9 % (36.0-47.0) Mean Corpuscular Volume 106 fL (79-100) Mean Corpuscular Hemoglobin 33 pg (25-35) Mean Corpuscular Hemoglobin Concent 32 g/dL (31-37) Red Cell Distribution Width 18.7 % (11.5-14.5) Platelet Count 139 x10^3/uL (140-400) Neutrophils (%) (Auto) 68 % (31-73) Lymphocytes (%) (Auto) 16 % (24-48) Monocytes (%) (Auto) 11 % (0-9) Eosinophils (%) (Auto) 3 % (0-3) Basophils (%) (Auto) 1 % (0-3) Neutrophils # (Auto) 4.5 x10^3uL (1.8-7.7) Lymphocytes # (Auto) 1.1 x10^3/uL (1.0-4.8) Monocytes # (Auto) 0.7 x10^3/uL (0.0-1.1) Eosinophils # (Auto) 0.2 x10^3/uL (0.0-0.7) Basophils # (Auto) 0.1 x10^3/uL (0.0-0.2) Prothrombin Time 14.8 SEC (11.7-14.0) Prothromb Time International Ratio 1.2 (0.8-1.1) Activated Partial Thromboplast Time 32 SEC (24-38) Sodium Level 138 mmol/L (136-145) Potassium Level 4.9 mmol/L (3.5-5.1) Chloride Level 102 mmol/L (98-107) Carbon Dioxide Level 21 mmol/L (21-32) Anion Gap 15 (6-14) Blood Urea Nitrogen 63 mg/dL (7-20) Creatinine 6.6 mg/dL (0.6-1.0) Estimated GFR (Cockcroft-Gault) 6.9 Glucose Level 85 mg/dL (70-99) Calcium Level 8.5 mg/dL (8.5-10.1) Medications Current Medications Fentanyl Citrate (Fentanyl 2ml Vial) 25 mcg PRN Q15MIN PRN IV PAIN GREATER THAN 3/10 Last administered on 06/11/17t 05:49; Start 06/11/17 at 05:45; Stop at 05:44 Ondansetron HCl (Zofran) 4 mg PRN Q8HRS PRN IV NAUSEA/VOMITING; Start 06/11/17 at 07:15; Stop 06/12/17 at 07:14 Fentanyl Citrate (Fentanyl 2ml Vial) 50 mcg PRN Q2HR PRN IV PAIN; Start at 07:15; Stop 06/12/17 at 07:14 Acetaminophen (Tylenol) 650 mg PRN Q4HRS PRN PO FEVER; Start 06/11/17 at 07:15 ; Stop 06/12/17 at 07:14 Acetaminophen/ Hydrocodone Bitart (Lortab 7.5/325) 1 tab PRN Q4HRS PRN PO SEVERE PAIN; Start 06/11/17 at 08:15; Status UNV Lorazepam (Ativan) 1 mg PRN Q6HRS PRN PO VOMITING; Start 06/11/17 at 08:15; Status UNV Methocarbamol (Robaxin) 1,500 mg QID PRN PO SEVERE PAIN; Start 06/11/17 at 08: 15; Status UNV Non-Formulary Medication 8 mg BID PRN PO NAUSEA/VOMITING; Start 06/11/17 at 08: 15; Status UNV Active Scripts Active Penicillin V Potassium 250 Mg Tablet 500 Mg PO Q8HRS Hydralazine Hcl 50 Mg Tablet 50 Mg PO TID Synthroid (Levothyroxine Sodium) 100 Mcg Tablet 100 Mcg PO DAILY07 Clonidine Tts-2 (Clonidine) 1 Each Patch.tdwk 1 Patch TD WEEKLY Aspirin Ec (Aspirin) 81 Mg Tablet.dr 81 Mg PO DAILYWBKFT Pantoprazole Sodium 40 Mg Tablet.dr 40 Mg PO DAILYAC Montelukast Sodium Tablet (Montelukast Sodium) 10 Mg Tablet 10 Mg PO QHS Carvedilol 12.5 Mg Tablet 25 Mg PO BIDWMEALS Lisinopril 10 Mg Tablet 10 Mg PO DAILY 30 Days Hydrocodone-Apap 7.5-325 (Hydrocodone Bit/Acetaminophen) 1 Each Tablet 1 Tab PO PRN Q4HRS PRN 14 Days Flector (Diclofenac Epolamine) 1 Each Patch.td12 1 Patch TD BID 30 Days Aranesp Syringe (Darbepoetin Apolinar In Polysorbat) 60 Mcg/0.3 Ml Disp.syrin 60 Mcg SQ WEEKLYHS 30 Days Furosemide 80 Mg Tablet 80 Mg PO TID 30 Days Loperamide (Loperamide Hcl) 2 Mg Capsule 2 Mg PO PRN Q15MIN PRN 30 Days Isosorbide Mononitrate Er (Isosorbide Mononitrate) 30 Mg Tab.er.24h 30 Mg PO DAILY 30 Days Reported Lorazepam 1 Mg Tablet 1 Mg PO PRN Q6HRS PRN Renvela (Sevelamer Carbonate) 800 Mg Tablet 2 Tab PO TID Lidocaine-Prilocaine Cream (Lidocaine/Prilocaine) 30 Gm Cream..g. 1 Oniel TP UD Dicyclomine Hcl 20 Mg Tablet 1 Tab PO TID PRN Amlodipine Besylate 10 Mg Tablet 10 Mg PO HS Renal Caps Softgel (Folic Acid/Vitamin B Comp W-C) 1 Mg Capsule 1 Cap PO DAILY Advair 250-50 Diskus (Fluticasone/Salmeterol) 1 Each Disk.w.dev 2 Puff IH DAILY Proair Hfa Inhaler (Albuterol Sulfate) 8.5 Gm Hfa.aer.ad 2 Puff INH PRN Q6HRS PRN Acyclovir 200 Mg Capsule 200 Mg PO BID Paroxetine Hcl 20 Mg Tablet 20 Mg PO QHS Nighttime Sleep Aid (Diphenhydramine Hcl) 50 Mg Capsule 50 Mg PO QHS Ondansetron Hcl 8 Mg Tablet 8 Mg PO BID PRN Methocarbamol 750 Mg Tablet 1,500 Mg PO QID PRN Tylenol Extra Strength (Acetaminophen) 500 Mg Tablet 500 Mg PO Q6HRS PRN Claritin (Loratadine) 10 Mg Capsule 10 Mg PO HS Vitals/I & O Vital Sign - Last 24 Hours 06/11/17 06/11/17 06/11/17 06/11/17 05:25 05:38 05:53 06:08 Temp 98.3 98.3 Pulse 87 87 85 83 Resp 18 20 18 18 B/P (MAP) 142/78 (99) 127/74 (91) 138/81 (100) 129/72 (91) Pulse Ox 100 99 100 99 O2 Delivery Nasal Cannula Nasal Cannula Nasal Cannula Nasal Cannula O2 Flow Rate 3.0 3.0 3.0 3.0 06/11/17 06:23 Pulse 86 Resp 16 B/P (MAP) 130/74 (92) Pulse Ox 98 O2 Delivery Nasal Cannula O2 Flow Rate 3.0 SYLWIA MÉNDEZ MD Jun 11, 2017 08:12
[2017-06-11] MEDS ORDERED: diphenhydrAMINE HCL 25 MG CAPSULE PO PRN (08:15)
--- NOTE | 2017-06-11 08:18 | ED.ADGEN ---
Past Medical History Past Medical History: Anxiety, Asthma, Cancer, Depression, Fibromyalgia, Hypertension, Pneumonia, Renal Disease, Renal Failure, Other Additional Past Medical Histor: Dialysis,Multiple Myeloma with Chemotherapy, IBS Past Surgical History: Cholecystectomy, Gastric Bypass, Tubal ligation, Other Additional Past Surgical Histo: L) upper arm fistula placement, Bone Marrow Transplant Alcohol Use: None Drug Use: None Adult General Chief Complaint Chief Complaint: OTHER COMPLAINTS HPI HPI Patient is a 42 year old woman, history of multiple myeloma, thrombocytopenia, COPD on 2 and half liters nasal cannula at baseline, anemia, end-stage renal disease on hemodialysis Sunday, who presents emergency department via EMS after hemorrhage from her fistula site in her left upper extremity. Patient states that she woke this morning, was apparent to go to dialysis, she states that she was applying lidocaine to her fistula site, when he began to bleed copiously, she describes as "a fountain of blood". She states that she pressed paper towels to the area, and called EMS. Upon EMS arrival, patient was noted to have continued bleeding, and a tourniquet was placed by EMS. Patient states that she's had "problems", with a fistula recently, and about a month ago had stenosis treated, by Dr. Cooper of vascular surgery. Patient states that she was planning on contacting the access center today to discuss continued pain and discomfort in the area. She states she has not previously had bleeding from the site. Her last dialysis access was Sunday, complete dialysis performed without issue. Denies any chest pain, any focal weakness, numbness, tingling, injuries or inciting events. Does take a daily baby aspirin is has not taken it this morning. Review of Systems Review of Systems Constitutional: Denies fever or chills. [] Eyes: Denies change in visual acuity. [] HENT: Denies nasal congestion or sore throat. [] Respiratory: Denies cough or shortness of breath. [] Cardiovascular: Denies chest pain or edema. [] Bleeding from access site. GI: Denies abdominal pain, nausea, vomiting, bloody stools or diarrhea. [] : Denies dysuria. [] Musculoskeletal: Denies back pain or joint pain. [] Integument: Denies rash. [] Neurologic: Denies headache, focal weakness or sensory changes. [] Endocrine: Denies polyuria or polydipsia. [] Lymphatic: Denies swollen glands. [] Psychiatric: Denies depression or anxiety. [] Current Medications Current Medications Current Medications Medications (Trade) Dose Ordered Sig/Jamila Start Time Stop Time Status Last Admin Dose Admin Fentanyl Citrate (Fentanyl 2ml Vial) 25 mcg PRN Q15MIN PRN 06/11/17 05:45 06/12/17 05:44 06/11/17 05:49 25 MCG Allergies Allergies Allergies Coded Allergies Type Severity Reaction Last Updated Verified Sulfa (Sulfonamide Antibiotics) Allergy Intermediate Hives 11/29/16 Yes sucralose Allergy Intermediate hives & itching 11/29/16 Yes codeine Adverse Reaction Intermediate ITCHING, PREVIOUSLY TOLERATED DILAUDID Yes Physical Exam Physical Exam Constitutional: Well developed, well nourished, anxious, non-toxic appearance. [ ] HENT: Normocephalic, atraumatic, bilateral external ears normal, oropharynx moist, no oral exudates, nose normal. [] Eyes: PERRLA, EOMI, conjunctiva normal, no discharge. [] Neck: Normal range of motion, no tenderness, supple, no stridor. [] Cardiovascular:Heart rate regular rhythm, no murmur, S1, S2, rubs or gallops. [] Lungs & Thorax: Diminished breath of the bases bilaterally, no wheezing, rhonchi , rales. Patient on baseline nasal cannula.] Abdomen: Bowel sounds normal, soft, no tenderness, no masses, no pulsatile masses. [] Skin: Warm, dry, no erythema, no rash. [] Back: No tenderness, no CVA tenderness. [] Extremities: Patient with tourniquet in place on arrival to the emergency department placed by EMS, with blood soaked through lower part to bandages. Patient with good thrill, tourniquet removed, with no further bleeding noted, patient noted to have some scabbing over the fistula site, nonadherent dressing with Coban applied. No cyanosis, no clubbing, ROM intact, no edema. [] Pulses are equal and intact bilaterally. Neurologic: Alert and oriented X 3, normal motor function, normal sensory function, no focal deficits noted. [] Psychologic: Affect normal, judgement normal, mood normal. [] Current Patient Data Vital Signs Vital Signs Date Time Temp Pulse Resp B/P (MAP) Pulse Ox O2 Delivery O2 Flow Rate FiO2 06/11/17 06:23 86 16 130/74 (92) 98 Nasal Cannula 3.0 06/11/17 05:25 98.3 98.3 Lab Values Laboratory Tests Test 06/11/17 05:30 White Blood Count 6.6 x10^3/uL (4.0-11.0) Red Blood Count 2.93 x10^6/uL (3.50-5.40) L Hemoglobin 9.8 g/dL (12.0-15.5) L Hematocrit 30.9 % (36.0-47.0) L Mean Corpuscular Volume 106 fL (79-100) H Mean Corpuscular Hemoglobin 33 pg (25-35) Mean Corpuscular Hemoglobin Concent 32 g/dL (31-37) Red Cell Distribution Width 18.7 % (11.5-14.5) H Platelet Count 139 x10^3/uL (140-400) #L Neutrophils (%) (Auto) 68 % (31-73) Lymphocytes (%) (Auto) 16 % (24-48) L Monocytes (%) (Auto) 11 % (0-9) H Eosinophils (%) (Auto) 3 % (0-3) Basophils (%) (Auto) 1 % (0-3) Neutrophils # (Auto) 4.5 x10^3uL (1.8-7.7) Lymphocytes # (Auto) 1.1 x10^3/uL (1.0-4.8) Monocytes # (Auto) 0.7 x10^3/uL (0.0-1.1) Eosinophils # (Auto) 0.2 x10^3/uL (0.0-0.7) Basophils # (Auto) 0.1 x10^3/uL (0.0-0.2) Prothrombin Time 14.8 SEC (11.7-14.0) H Prothrombin Time INR 1.2 (0.8-1.1) H PTT 32 SEC (24-38) Sodium Level 138 mmol/L (136-145) Potassium Level 4.9 mmol/L (3.5-5.1) Chloride Level 102 mmol/L (98-107) Carbon Dioxide Level 21 mmol/L (21-32) Anion Gap 15 (6-14) H Blood Urea Nitrogen 63 mg/dL (7-20) H Creatinine 6.6 mg/dL (0.6-1.0) H Estimated GFR (Cockcroft-Gault) 6.9 Glucose Level 85 mg/dL (70-99) Calcium Level 8.5 mg/dL (8.5-10.1) Laboratory Tests 06/11/17 05:30 Laboratory Tests 06/11/17 05:30 EKG EKG ECG: Rhythm strip: [] Sinus rhythm, heart rate 85 beats are minute, no ectopy. As interpreted by me. Radiology/Procedures Radiology/Procedures Not indicated. [] Course & Med Decision Making Course & Med Decision Making Pertinent Labs and Imaging studies reviewed. (See chart for details) EMS to indicate removed, without active bleeding noted. OB and with nonadherent dressing applied to area. Patient's laboratory studies reveal that she is at her baseline hemoglobin at 9.8, with platelet count of 139, electrolytes not reveal any acutely concerning findings. Patient received pain medication in the emergency department resting comfortably, vital signs within normal limits on the monitor. I did discuss findings and course as above with Dr. Altman of vascular surgery, states that vascular surgery will evaluate the patient this morning, therefore will obtain admission to the hospital, did discuss findings as above with Dr. Varma, on-call for the patient's primary care provider, patient accepted to her service as an observation admission, with consultation and evaluation by vascular surgery and nephrology, as stated no indications for emergent intervention at this time, continue to keep dressing in place and monitor closely for rebleeding. Patient resting comfortably, remained stable in sinus rhythm on the monitor, awaiting transport to the floor. Bridge orders entered per discussion. Dragon Disclaimer Dragon Disclaimer This electronic medical record was generated, in whole or in part, using a voice recognition dictation system. Departure Impression: Primary Impression: Hemorrhage of arteriovenous fistula Disposition: ADMITTED INPATIENT Admitting Physician: Caroline Varma Condition: IMPROVED DIANA ABEL DO Jun 11, 2017 08:18
[2017-06-11] MEDS ORDERED: ONDANSETRON ODT 4 MG TAB.RAPDIS. PO PRN (08:30)
--- NOTE | 2017-06-11 08:31 | PDOC2 ---
CONSULT Date of Consult Date of Consult DATE: 06/11/17 TIME: 08:19 Reason for Consult Reason for Consult: Left arm "bleeding" fistula Identification/Chief Complaint Chief Complaint Left arm "bleeding from fistula" Source Source: Chart review, Patient History of Present Illness Reason for Visit: This is a pleasant 42 year old female who presented with pulsatile bleeding from her left upper arm fistula. The patient states she was preparing her arm for dialysis, removed a scab causing spontaneous bleeding she could not control , she called 911 and was admitted via the ER. The patient report the fistula has been present for 4 years, it is a large fistula with some areas of debilitation. More recently she has had issues with bleeding and pain post dialysis and has been instructed to follow up with the vascular surgeon. In addition she has two areas of "scabbing" that have been slow to heal. Past Medical History Cardiovascular: HTN Pulmonary: Asthma, Pneumonia, Other CENTRAL NERVOUS SYSTEM: Other GI: GERD, Hemorrhoids, Irritable bowel disease Heme/Onc: Anemia NOS, Cancer Hepatobiliary: No pertinent hx Psych: Anxiety, Depression Musculoskeletal: Other Rheumatologic: Fibromyalgia Infectious disease: Other Renal/: Chronic renal failure, Urinary Incontinence Endocrine: Hyperparathyroidism Past Surgical History Past Surgical History: Cholecystectomy, Tubal Ligation, Other (left upper arm arterial venous fistula) Family History Family History: Hypertension Social History ALCOHOL: none Drugs: None Lives: with Family Current Problem List Problem List Problems Medical Problems: (1) Hemorrhage of arteriovenous fistula Status: Acute Current Medications Current Medications Current Medications Fentanyl Citrate (Fentanyl 2ml Vial) 25 mcg PRN Q15MIN PRN IV PAIN GREATER THAN 3/10 Last administered on 06/11/17t 05:49; Start 06/11/17 at 05:45; Stop at 05:44 Ondansetron HCl (Zofran) 4 mg PRN Q8HRS PRN IV NAUSEA/VOMITING; Start 06/11/17 at 07:15; Stop 06/12/17 at 07:14 Fentanyl Citrate (Fentanyl 2ml Vial) 50 mcg PRN Q2HR PRN IV PAIN; Start at 07:15; Stop 06/12/17 at 07:14 Acetaminophen (Tylenol) 650 mg PRN Q4HRS PRN PO FEVER; Start 06/11/17 at 07:15 ; Stop 06/12/17 at 07:14 Acetaminophen/ Hydrocodone Bitart (Lortab 7.5/325) 1 tab PRN Q4HRS PRN PO SEVERE PAIN; Start 06/11/17 at 08:15 Lorazepam (Ativan) 1 mg PRN Q6HRS PRN PO VOMITING; Start 06/11/17 at 08:15 Methocarbamol (Robaxin) 1,500 mg QID PRN PO SEVERE PAIN; Start 06/11/17 at 08: 15 Ondansetron HCl (Zofran Odt) 8 mg PRN BID PRN PO NAUSEA/VOMITING; Start at 08:30 Diphenhydramine HCl (Benadryl) 25 mg PRN Q6HRS PRN PO ITCHING; Start 06/11/17 at 08:15 Active Scripts Active Penicillin V Potassium 250 Mg Tablet 500 Mg PO Q8HRS Hydralazine Hcl 50 Mg Tablet 50 Mg PO TID Synthroid (Levothyroxine Sodium) 100 Mcg Tablet 100 Mcg PO DAILY07 Clonidine Tts-2 (Clonidine) 1 Each Patch.tdwk 1 Patch TD WEEKLY Aspirin Ec (Aspirin) 81 Mg Tablet.dr 81 Mg PO DAILYWBKFT Pantoprazole Sodium 40 Mg Tablet.dr 40 Mg PO DAILYAC Montelukast Sodium Tablet (Montelukast Sodium) 10 Mg Tablet 10 Mg PO QHS Carvedilol 12.5 Mg Tablet 25 Mg PO BIDWMEALS Lisinopril 10 Mg Tablet 10 Mg PO DAILY 30 Days Hydrocodone-Apap 7.5-325 (Hydrocodone Bit/Acetaminophen) 1 Each Tablet 1 Tab PO PRN Q4HRS PRN 14 Days Flector (Diclofenac Epolamine) 1 Each Patch.td12 1 Patch TD BID 30 Days Aranesp Syringe (Darbepoetin Apolinar In Polysorbat) 60 Mcg/0.3 Ml Disp.syrin 60 Mcg SQ WEEKLYHS 30 Days Furosemide 80 Mg Tablet 80 Mg PO TID 30 Days Loperamide (Loperamide Hcl) 2 Mg Capsule 2 Mg PO PRN Q15MIN PRN 30 Days Isosorbide Mononitrate Er (Isosorbide Mononitrate) 30 Mg Tab.er.24h 30 Mg PO DAILY 30 Days Reported Lorazepam 1 Mg Tablet 1 Mg PO PRN Q6HRS PRN Renvela (Sevelamer Carbonate) 800 Mg Tablet 2 Tab PO TID Lidocaine-Prilocaine Cream (Lidocaine/Prilocaine) 30 Gm Cream..g. 1 Oniel TP UD Dicyclomine Hcl 20 Mg Tablet 1 Tab PO TID PRN Amlodipine Besylate 10 Mg Tablet 10 Mg PO HS Renal Caps Softgel (Folic Acid/Vitamin B Comp W-C) 1 Mg Capsule 1 Cap PO DAILY Advair 250-50 Diskus (Fluticasone/Salmeterol) 1 Each Disk.w.dev 2 Puff IH DAILY Proair Hfa Inhaler (Albuterol Sulfate) 8.5 Gm Hfa.aer.ad 2 Puff INH PRN Q6HRS PRN Acyclovir 200 Mg Capsule 200 Mg PO BID Paroxetine Hcl 20 Mg Tablet 20 Mg PO QHS Nighttime Sleep Aid (Diphenhydramine Hcl) 50 Mg Capsule 50 Mg PO QHS Ondansetron Hcl 8 Mg Tablet 8 Mg PO BID PRN Methocarbamol 750 Mg Tablet 1,500 Mg PO QID PRN Tylenol Extra Strength (Acetaminophen) 500 Mg Tablet 500 Mg PO Q6HRS PRN Claritin (Loratadine) 10 Mg Capsule 10 Mg PO HS Allergies Allergies: Coded Allergies: Sulfa (Sulfonamide Antibiotics) (Verified Allergy, Intermediate, Hives, 11/29/16) sucralose (Verified Allergy, Intermediate, hives & itching, 11/29/16) codeine (Verified Adverse Reaction, Intermediate, ITCHING, PREVIOUSLY TOLERATED DILAUDID, 11/29/16) ROS Review of System GEN: Denies fever or weight loss HEENT: No blurred vision or sore throat CV: Denies chest pain RESP: No shortness of breath or cough GI: occasional nausea : No dysuria or hematuria M/S: No myalgias NEURO: No numbness or tingling in extremities Skin: as per HPI Physical Exam General: Alert, Oriented X3 Lungs: Clear to auscultation, Normal air movement Heart: Regular rate Abdomen: Soft, No tenderness Extremities: Other (pressure dressing left upper arm, removed, no active bleeding, two areas of superficial skin ulceration, fistula with good thrill and bruit, some areas of dilitation, palpable radial pulses bilaterally) Skin: Other (right chest scars from permacath) Neuro: Sensation intact MUSCULOSKELETAL: Full range of motion without pain Vitals VITALS Vital Signs Date Time Temp Pulse Resp B/P (MAP) Pulse Ox O2 Delivery O2 Flow Rate FiO2 06/11/17 06:23 86 16 130/74 (92) 98 Nasal Cannula 3.0 06/11/17 05:25 98.3 98.3 Labs Labs Laboratory Tests Test 06/11/17 05:30 White Blood Count 6.6 x10^3/uL (4.0-11.0) Red Blood Count 2.93 x10^6/uL (3.50-5.40) Hemoglobin 9.8 g/dL (12.0-15.5) Hematocrit 30.9 % (36.0-47.0) Mean Corpuscular Volume 106 fL (79-100) Mean Corpuscular Hemoglobin 33 pg (25-35) Mean Corpuscular Hemoglobin Concent 32 g/dL (31-37) Red Cell Distribution Width 18.7 % (11.5-14.5) Platelet Count 139 x10^3/uL (140-400) Neutrophils (%) (Auto) 68 % (31-73) Lymphocytes (%) (Auto) 16 % (24-48) Monocytes (%) (Auto) 11 % (0-9) Eosinophils (%) (Auto) 3 % (0-3) Basophils (%) (Auto) 1 % (0-3) Neutrophils # (Auto) 4.5 x10^3uL (1.8-7.7) Lymphocytes # (Auto) 1.1 x10^3/uL (1.0-4.8) Monocytes # (Auto) 0.7 x10^3/uL (0.0-1.1) Eosinophils # (Auto) 0.2 x10^3/uL (0.0-0.7) Basophils # (Auto) 0.1 x10^3/uL (0.0-0.2) Prothrombin Time 14.8 SEC (11.7-14.0) Prothromb Time International Ratio 1.2 (0.8-1.1) Activated Partial Thromboplast Time 32 SEC (24-38) Sodium Level 138 mmol/L (136-145) Potassium Level 4.9 mmol/L (3.5-5.1) Chloride Level 102 mmol/L (98-107) Carbon Dioxide Level 21 mmol/L (21-32) Anion Gap 15 (6-14) Blood Urea Nitrogen 63 mg/dL (7-20) Creatinine 6.6 mg/dL (0.6-1.0) Estimated GFR (Cockcroft-Gault) 6.9 Glucose Level 85 mg/dL (70-99) Calcium Level 8.5 mg/dL (8.5-10.1) Laboratory Tests Test 06/11/17 05:30 White Blood Count 6.6 x10^3/uL (4.0-11.0) Red Blood Count 2.93 x10^6/uL (3.50-5.40) Hemoglobin 9.8 g/dL (12.0-15.5) Hematocrit 30.9 % (36.0-47.0) Mean Corpuscular Volume 106 fL (79-100) Mean Corpuscular Hemoglobin 33 pg (25-35) Mean Corpuscular Hemoglobin Concent 32 g/dL (31-37) Red Cell Distribution Width 18.7 % (11.5-14.5) Platelet Count 139 x10^3/uL (140-400) Neutrophils (%) (Auto) 68 % (31-73) Lymphocytes (%) (Auto) 16 % (24-48) Monocytes (%) (Auto) 11 % (0-9) Eosinophils (%) (Auto) 3 % (0-3) Basophils (%) (Auto) 1 % (0-3) Neutrophils # (Auto) 4.5 x10^3uL (1.8-7.7) Lymphocytes # (Auto) 1.1 x10^3/uL (1.0-4.8) Monocytes # (Auto) 0.7 x10^3/uL (0.0-1.1) Eosinophils # (Auto) 0.2 x10^3/uL (0.0-0.7) Basophils # (Auto) 0.1 x10^3/uL (0.0-0.2) Prothrombin Time 14.8 SEC (11.7-14.0) Prothromb Time International Ratio 1.2 (0.8-1.1) Activated Partial Thromboplast Time 32 SEC (24-38) Sodium Level 138 mmol/L (136-145) Potassium Level 4.9 mmol/L (3.5-5.1) Chloride Level 102 mmol/L (98-107) Carbon Dioxide Level 21 mmol/L (21-32) Anion Gap 15 (6-14) Blood Urea Nitrogen 63 mg/dL (7-20) Creatinine 6.6 mg/dL (0.6-1.0) Estimated GFR (Cockcroft-Gault) 6.9 Glucose Level 85 mg/dL (70-99) Calcium Level 8.5 mg/dL (8.5-10.1) Assessment/Plan Assessment/Plan ESRD on dialysis, last dialysis Sunday without incident, patient was prepping for dialysis, she removed a scab from an area of skin along her fistula and experienced excessive bleeding. There are areas of dilatation in the fistula. Currently the bleeding is controlled with pressure dressing. Dressing removed with no active bleeding at this time. HTN COPD Hx GI Bleed Discussed examination with Dr. Cooper, recommend PC placement for dialysis to rest left arm fistula. Plan surgical exploration with possible revision left upper arm A-V fistula tomorrow. Nephrology has been consulted for dialysis. NPO for IR today then may have diet with NPO after MN for surgical procedure tomorrow. Maintain pressure dressing and arm elevation. US left upper arm to evaluate fistula, patient has some aneurysmal dilatations and has had previous issues with bleeding and pain. She has had multiple procedures with access interventions. VADIM GONZALES APRN Jun 11, 2017 08:31
[2017-06-11] MEDS: ONDANSETRON PF 4 MG/2 ML VIAL. IV PRN ×2 (09:36→20:24)
[2017-06-11] MEDS ORDERED: PREG50CA PO (10:11)
[2017-06-11] MEDS ORDERED: LISI10TA2 PO (10:11)
--- NOTE | 2017-06-11 11:03 | HP ---
ADMIT DATE: 06/11/2017 CHIEF COMPLAINT: Bleeding from fistula. HISTORY OF PRESENT ILLNESS: The patient is a 42-year-old female with end-stage renal disease, on dialysis. She presented to the Emergency Room this morning with the above complaint. She reported that she removed a Band-Aid that she had covering her fistula at home and a scab came off with it. She then had the onset of brisk bleeding, which she could not get to stop. She was brought to the Emergency Room. After some efforts there, the bleeding was stopped, a pressure dressing was applied and she was admitted for further treatment. PAST MEDICAL HISTORY: End-stage renal disease, on dialysis; hypertension; chronic anxiety and depression; hypothyroidism; fibromyalgia; asthma; congestive heart failure; multiple myeloma; chronic anemia. PAST SURGICAL HISTORY: Cholecystectomy, gastric bypass, tubal ligation, left arm fistula, bone marrow transplant. ALLERGIES: THE PATIENT IS ALLERGIC OR INTOLERANT TO SULFA, CODEINE AND CARAFATE. HOME MEDICATIONS: An accurate list is not presently available. The patient's is to be bringing one to the hospital. FAMILY HISTORY: Noncontributory. SOCIAL HISTORY: The patient is . She is disabled. She does not smoke cigarettes or drink alcohol to excess. REVIEW OF SYSTEMS: The patient denies fever or chills. She denies chest pain or palpitations. She denies unusual cough or shortness of breath. She denies abdominal pain or emesis. She has some chronic intermittent nausea for which she takes Zofran as needed. Her mood has been fairly good with her usual medication. Her chronic pain has been stable with hydrocodone. She denies missing any dialysis treatments. She was due for dialysis today. She reports that she had been having increasing pain in her fistula and was planning to follow up with Dr. Cooper about this, but her fistula was apparently working properly and she was able to do dialysis treatments last week as usual. She has had no other episodes of bleeding from her fistula. PHYSICAL EXAMINATION: GENERAL: The patient is alert and oriented x 3, resting comfortably in bed in no acute distress. HEENT: PERRL, EOMI, sclerae clear. Oropharynx: Mucous membranes moist. NECK: Supple without lymphadenopathy. CHEST: Clear to auscultation with normal respiratory effort. CARDIOVASCULAR: Regular rhythm without murmur. ABDOMEN: Soft, nontender, normoactive bowel sounds are present. EXTREMITIES: Bilateral lower extremities are without edema. The left upper extremity has a pressure dressing in place, which is dry. ASSESSMENT AND PLAN: 1. Hemorrhage of AV fistula, presently stable. Dr. Altman has been consulted to help with further treatment of this. We will check a CBC in the morning. 2. End-stage renal disease. Continue dialysis as able. A consult with Dr. Alanis is pending. 3. Fibromyalgia with chronic pain. Continue her home medications. 4. Chronic anxiety and depression. The patient appears at her baseline with this. We will continue her home medication. 5. Hypertension. Continue her usual medications when an accurate list is available. These will be restarted. 6. Asthma. This appears stable. 7. History of multiple myeloma, this is presently stable. SYLWIA MÉNDEZ MD DR: MADDIE/dejuan JOB#: [id number] / [id number] COURTNEY
--- NOTE | 2017-06-11 11:26 | PDOC2 ---
CONSULT Date of Consult Date of Consult DATE: 06/11/17 TIME: 11:20 Reason for Consult Reason for Consult: ESRD Referring Physician Referring Physician: VADIM Identification/Chief Complaint Chief Complaint BLEEDING FROM HER AV ACCESS Problems: Source Source: Chart review History of Present Illness Reason for Visit: THIS IS A 42 YR OLD ESRD PT. SHE HAS OP HD ON MWF. SHE WAS GETTING READY FOR DIALYSIS THIS AM WHEN SHE PULLED OFF A SCAB FROM HER AVF CANNULATION SITE. IT STARTED TO BLEED AND SHE COULD NOT STOP IT. SO SHE CAME TO THE ER AND NOW IS UNDERGOING VASCULAR SURGERY EVALUATION. LABS ARE C/W ESRD Past Medical History Cardiovascular: HTN Pulmonary: Asthma, Pneumonia, Other CENTRAL NERVOUS SYSTEM: Other GI: GERD, Hemorrhoids, Irritable bowel disease Heme/Onc: Anemia NOS, Cancer Hepatobiliary: No pertinent hx Psych: Anxiety, Depression Musculoskeletal: Other Rheumatologic: Fibromyalgia Infectious disease: Other Renal/: Chronic renal failure, Urinary Incontinence Endocrine: Hyperparathyroidism Past Surgical History Past Surgical History: Cholecystectomy, Tubal Ligation, Other (left upper arm arterial venous fistula) Family History Family History: Hypertension Social History ALCOHOL: none Drugs: None Lives: with Family Current Problem List Problem List Problems Medical Problems: (1) Hemorrhage of arteriovenous fistula Status: Acute Current Medications Current Medications Current Medications Fentanyl Citrate (Fentanyl 2ml Vial) 25 mcg PRN Q15MIN PRN IV PAIN GREATER THAN 3/10 Last administered on 06/11/17 05:49; Start 06/11/17 at 05:45; Stop at 05:44 Ondansetron HCl (Zofran) 4 mg PRN Q8HRS PRN IV NAUSEA/VOMITING Last administered on 06/11/17 09:36; Start 06/11/17 at 07:15; Stop 06/12/17 at 07:14 Fentanyl Citrate (Fentanyl 2ml Vial) 50 mcg PRN Q2HR PRN IV PAIN Last administered on 06/11/17 09:28; Start 06/11/17 at 07:15; Stop 06/12/17 at 07:14 Acetaminophen (Tylenol) 650 mg PRN Q4HRS PRN PO FEVER; Start 06/11/17 at 07:15 ; Stop 06/12/17 at 07:14 Acetaminophen/ Hydrocodone Bitart (Lortab 7.5/325) 1 tab PRN Q4HRS PRN PO SEVERE PAIN; Start 06/11/17 at 08:15 Lorazepam (Ativan) 1 mg PRN Q6HRS PRN PO VOMITING; Start 06/11/17 at 08:15 Methocarbamol (Robaxin) 1,500 mg QID PRN PO SEVERE PAIN; Start 06/11/17 at 08: 15 Ondansetron HCl (Zofran Odt) 8 mg PRN BID PRN PO NAUSEA/VOMITING; Start at 08:30 Diphenhydramine HCl (Benadryl) 25 mg PRN Q6HRS PRN PO ITCHING; Start 06/11/17 at 08:15 Cefazolin Sodium/ Dextrose 50 ml @ 100 mls/hr 1X PREOP PRN IV Surgery; Start 06/12/17 at 06:00; Stop 06/12/17 at 18:00 Active Scripts Active Penicillin V Potassium 250 Mg Tablet 500 Mg PO Q8HRS Hydralazine Hcl 50 Mg Tablet 50 Mg PO TID Synthroid (Levothyroxine Sodium) 100 Mcg Tablet 100 Mcg PO DAILY07 Aspirin Ec (Aspirin) 81 Mg Tablet.dr 81 Mg PO DAILYWBKFT Pantoprazole Sodium 40 Mg Tablet.dr 40 Mg PO DAILYAC Montelukast Sodium Tablet (Montelukast Sodium) 10 Mg Tablet 10 Mg PO QHS Carvedilol 12.5 Mg Tablet 25 Mg PO BIDWMEALS Hydrocodone-Apap 7.5-325 (Hydrocodone Bit/Acetaminophen) 1 Each Tablet 1 Tab PO PRN Q4HRS PRN 14 Days Flector (Diclofenac Epolamine) 1 Each Patch.td12 1 Patch TD BID 30 Days Aranesp Syringe (Darbepoetin Apolinar In Polysorbat) 60 Mcg/0.3 Ml Disp.syrin 60 Mcg SQ WEEKLYHS 30 Days Furosemide 80 Mg Tablet 80 Mg PO TID 30 Days Loperamide (Loperamide Hcl) 2 Mg Capsule 2 Mg PO PRN Q15MIN PRN 30 Days Reported Lisinopril 10 Mg Tablet 1 Tab PO HS Lyrica (Pregabalin) 50 Mg Capsule 1 Cap PO BID Lorazepam 1 Mg Tablet 1 Mg PO PRN Q6HRS PRN Renvela (Sevelamer Carbonate) 800 Mg Tablet 2 Tab PO TID Lidocaine-Prilocaine Cream (Lidocaine/Prilocaine) 30 Gm Cream..g. 1 Oniel TP UD Dicyclomine Hcl 20 Mg Tablet 1 Tab PO TID PRN Amlodipine Besylate 10 Mg Tablet 10 Mg PO HS Renal Caps Softgel (Folic Acid/Vitamin B Comp W-C) 1 Mg Capsule 1 Cap PO DAILY Advair 250-50 Diskus (Fluticasone/Salmeterol) 1 Each Disk.w.dev 2 Puff IH DAILY Proair Hfa Inhaler (Albuterol Sulfate) 8.5 Gm Hfa.aer.ad 2 Puff INH PRN Q6HRS PRN Acyclovir 200 Mg Capsule 200 Mg PO BID Paroxetine Hcl 20 Mg Tablet 20 Mg PO QHS Nighttime Sleep Aid (Diphenhydramine Hcl) 50 Mg Capsule 50 Mg PO QHS Ondansetron Hcl 8 Mg Tablet 8 Mg PO PRN Q8HRS PRN Methocarbamol 750 Mg Tablet 1,500 Mg PO QID Tylenol Extra Strength (Acetaminophen) 500 Mg Tablet 500 Mg PO Q6HRS PRN Claritin (Loratadine) 10 Mg Capsule 10 Mg PO HS Allergies Allergies: Coded Allergies: Sulfa (Sulfonamide Antibiotics) (Verified Allergy, Intermediate, Hives, 11/29/16) sucralose (Verified Allergy, Intermediate, hives & itching, 11/29/16) codeine (Verified Adverse Reaction, Intermediate, ITCHING, PREVIOUSLY TOLERATED DILAUDID, 11/29/16) ROS General: YES: Fatigue, Malaise, Appetite PSYCHOLOGICAL ROS: YES: Anxiety, Depression Eyes: Yes Decreased vision HEENT: YES: Heacaches Respiratory: YES: Cough Gastrointestinal: Yes Constipation Genitourinary: YES Other (ANURIA) Musculoskeletal: Yes Muscular Weakness Neurological: Yes Weakness Skin: Yes Dry Skin, Yes Acne (BLEEDING FROM AVF SITE. LEFT ARM AVF HAS A GOOD THRILL AND BRUIT) Physical Exam General: Alert, Oriented X3, Cooperative, No acute distress HEENT: Atraumatic, PERRLA Lungs: Clear to auscultation Heart: Regular rate, Normal S1, Normal S2 Abdomen: Normal bowel sounds, Soft, No tenderness Extremities: No clubbing, No cyanosis, Other (LEFT ARM AVF HAS GOOD THRILL AND BRUIT) Neuro: Normal gait Psych/Mental Status: Mental status NL, Mood NL MUSCULOSKELETAL: No joint tenderness, No deformity, No swelling Vitals VITALS Vital Signs Date Time Temp Pulse Resp B/P (MAP) Pulse Ox O2 Delivery O2 Flow Rate FiO2 06/11/17 09:28 Nasal Cannula 3.0 06/11/17 07:00 97.5 86 18 151/85 (107) 99 97.5 Labs Labs Laboratory Tests Test 06/11/17 05:30 White Blood Count 6.6 x10^3/uL (4.0-11.0) Red Blood Count 2.93 x10^6/uL (3.50-5.40) Hemoglobin 9.8 g/dL (12.0-15.5) Hematocrit 30.9 % (36.0-47.0) Mean Corpuscular Volume 106 fL (79-100) Mean Corpuscular Hemoglobin 33 pg (25-35) Mean Corpuscular Hemoglobin Concent 32 g/dL (31-37) Red Cell Distribution Width 18.7 % (11.5-14.5) Platelet Count 139 x10^3/uL (140-400) Neutrophils (%) (Auto) 68 % (31-73) Lymphocytes (%) (Auto) 16 % (24-48) Monocytes (%) (Auto) 11 % (0-9) Eosinophils (%) (Auto) 3 % (0-3) Basophils (%) (Auto) 1 % (0-3) Neutrophils # (Auto) 4.5 x10^3uL (1.8-7.7) Lymphocytes # (Auto) 1.1 x10^3/uL (1.0-4.8) Monocytes # (Auto) 0.7 x10^3/uL (0.0-1.1) Eosinophils # (Auto) 0.2 x10^3/uL (0.0-0.7) Basophils # (Auto) 0.1 x10^3/uL (0.0-0.2) Prothrombin Time 14.8 SEC (11.7-14.0) Prothromb Time International Ratio 1.2 (0.8-1.1) Activated Partial Thromboplast Time 32 SEC (24-38) Sodium Level 138 mmol/L (136-145) Potassium Level 4.9 mmol/L (3.5-5.1) Chloride Level 102 mmol/L (98-107) Carbon Dioxide Level 21 mmol/L (21-32) Anion Gap 15 (6-14) Blood Urea Nitrogen 63 mg/dL (7-20) Creatinine 6.6 mg/dL (0.6-1.0) Estimated GFR (Cockcroft-Gault) 6.9 Glucose Level 85 mg/dL (70-99) Calcium Level 8.5 mg/dL (8.5-10.1) Laboratory Tests Test 06/11/17 05:30 White Blood Count 6.6 x10^3/uL (4.0-11.0) Red Blood Count 2.93 x10^6/uL (3.50-5.40) Hemoglobin 9.8 g/dL (12.0-15.5) Hematocrit 30.9 % (36.0-47.0) Mean Corpuscular Volume 106 fL (79-100) Mean Corpuscular Hemoglobin 33 pg (25-35) Mean Corpuscular Hemoglobin Concent 32 g/dL (31-37) Red Cell Distribution Width 18.7 % (11.5-14.5) Platelet Count 139 x10^3/uL (140-400) Neutrophils (%) (Auto) 68 % (31-73) Lymphocytes (%) (Auto) 16 % (24-48) Monocytes (%) (Auto) 11 % (0-9) Eosinophils (%) (Auto) 3 % (0-3) Basophils (%) (Auto) 1 % (0-3) Neutrophils # (Auto) 4.5 x10^3uL (1.8-7.7) Lymphocytes # (Auto) 1.1 x10^3/uL (1.0-4.8) Monocytes # (Auto) 0.7 x10^3/uL (0.0-1.1) Eosinophils # (Auto) 0.2 x10^3/uL (0.0-0.7) Basophils # (Auto) 0.1 x10^3/uL (0.0-0.2) Prothrombin Time 14.8 SEC (11.7-14.0) Prothromb Time International Ratio 1.2 (0.8-1.1) Activated Partial Thromboplast Time 32 SEC (24-38) Sodium Level 138 mmol/L (136-145) Potassium Level 4.9 mmol/L (3.5-5.1) Chloride Level 102 mmol/L (98-107) Carbon Dioxide Level 21 mmol/L (21-32) Anion Gap 15 (6-14) Blood Urea Nitrogen 63 mg/dL (7-20) Creatinine 6.6 mg/dL (0.6-1.0) Estimated GFR (Cockcroft-Gault) 6.9 Glucose Level 85 mg/dL (70-99) Calcium Level 8.5 mg/dL (8.5-10.1) Assessment/Plan Assessment/Plan IMP FISTULA MALFUNCTION WITH BLEEDING-PROB TEAR OR OUTFLOW STENOSIS LEFT ARM BB FISTULA WITH A GOOD THRILL AND BRUIT-CURRENTLY HAS A PRESSURE DRESSING ON IT ANEMIA HTN ESRD PLAN VASCULAR SURGERY TO TAKE PT TO OR TOMORROW TEMP HD CATHETER PLACEMENT TODAY HD LATER TODAY WILL USE AVF AGAIN ONCE CLEARED BY VASCULAR SURGERY NATE PATINO MD Jun 11, 2017 11:26
[2017-06-11] MEDS ORDERED: LIDOCAINE 1% / SOD BICARB 8.4% 20 ML VIAL. IJ ONE (11:30)
[2017-06-11] MEDS ORDERED: HEPARIN for IV BOLUS 10,000 UNIT/10 ML VIAL. ONE (11:30)
[2017-06-11] MEDS ORDERED: ceFAZolin 1GM IVPB FOR OMNI 100 ML IV ONE (11:42)
[2017-06-11] MEDS ORDERED: fentaNYL PF VIAL 250 MCG/5 ML VIAL ONE (11:42)
[2017-06-11] MEDS ORDERED: MIDAZOLAM HCL/PF 5 MG/5 ML VIAL. ONE (11:42)
[2017-06-11] MEDS ORDERED: LIDOCAINE 2%/EPI 1:100,000 20 ML VIAL. IJ ONE (11:45)
[2017-06-11] MEDS ORDERED: MIDAZOLAM HCL/PF 5 MG/5 ML VIAL. IV ONE (11:45)
[2017-06-11] MEDS ORDERED: fentaNYL PF VIAL 250 MCG/5 ML VIAL IV ONE (11:45)
[2017-06-11] MEDS: HYDROcodone/APAP 7.5/325MG 1 TAB TABLET PO PRN ×2 (13:04→20:23)
--- NOTE | 2017-06-11 13:31 | RAD ---
Procedure: Tunneled hemodialysis catheter placement Clinical Indication: End stage renal disease. Malfunctioning left upper extremity fistula. Sedation: Conscious sedation was administered for 15 minutes. The patient was monitored by a qualified independent observer throughout the time of sedation. Please refer to the medical record for exact doses of medications utilized to achieve moderate sedation. Fluoro Time: 0.6 min Dose Area Product : 1 Gycm2 Contrast: None Sterility: All elements of maximal sterile barrier technique including the use of a cap, mask, sterile gown, sterile gloves, large sterile sheet, appropriate hand hygiene, and 2% chlorhexidine for cutaneous antisepsis (or acceptable alternative antiseptic per current guidelines) were followed for this procedure. Consent: The procedure was explained in its entirety to the patient or the patients designated new accounts banking representative by a member of the treatment team, including a discussion of the risks, benefits and commonly accepted alternatives to the procedure, as well as the expected consequences of no therapy whatsoever. Discussion of the risks included, but was not limited to, those that are most frequent and those that are rare but possibly severe or life-threatening, as well as the possibility of unforeseen complications. Technique and Findings: Following informed consent, the patient was prepped and draped in the usual sterile fashion. Ultrasound interrogation of the right neck revealed patency and compressibility of what is either the right internal jugular vein, or a large collateral vein in essentially the same position. A 21-gauge micropuncture was then used to gain access to this vein under ultrasound guidance. A hard copy ultrasound image was recorded. The needle was exchanged over a wire for a 4 Portuguese sheath which was used to guide an Amplatz wire into the IVC. The skin over the right anterior chest wall was copiously anesthetized with 1% Lidocaine plus Epinephrine and a small dermatotomy was made. A 24 cm Duraflow tunneled hemodialysis catheter was then tunneled subcutaneously towards the neck dermatotomy and deployed through a large caliber peel-away sheath under fluoroscopic guidance such that the distal tip resided in the mid right atrium. Manual flow rates were assessed and found to be excellent. The catheter was then flushed, packed with Heparin, capped, and sutured to the skin. The neck dermatotomy was closed with Dermabond. Complications: None Impression: Tunneled hemodialysis catheter placement as described. This catheter demonstrates excellent manual flow rates and is suitable for use immediately.
[2017-06-11] MEDS ORDERED: DIALYSIS PATIENT. MC PRN ×2 (13:45→15:45)
[2017-06-11] MEDS ORDERED: LOPERAMIDE 2 MG CAPSULE PO PRN (14:15)
[2017-06-11] MEDS ORDERED: NON FORMULARY ITEM (Albuterol Sulfate (Proair Hfa Inhaler) 2 PUFF) INH PRN (14:15)
[2017-06-11] MEDS ORDERED: ACETAMINOPHEN 500 MG TABLET PO PRN (14:15)
[2017-06-11] MEDS ORDERED: LIDOCAINE/PRILOCAINE TOPICAL CREAM 5GM TUBE. TP PRN (14:15)
[2017-06-11] MEDS ORDERED: ALBUTEROL SULFATE 2.5 MG/3 ML NEBU. NEB PRN (14:30)
[2017-06-11] MEDS ORDERED: IV NORMAL SALINE 1000ML BAG 1,000 ML IV PRN ×2 (15:32)
[2017-06-11] MEDS ORDERED: diphenhydrAMINE 50 MG/ML VIAL IV PRN ×2 (15:45)
[2017-06-11] MEDS: METHOCARBAMOL 750 MG TABLET PO PRN ×2 (15:51→20:20)
[2017-06-11] MEDS: ALBUTEROL SULFATE 2.5 MG/3 ML NEBU. NEB SCH ×2 (16:00→20:00)
[2017-06-11] MEDS: BUDESONIDE 0.5 MG/2 ML NEBU. NEB SCH (20:00)
[2017-06-11] MEDS: ACYCLOVIR 200 MG CAPSULE. PO SCH (20:19)
[2017-06-11] MEDS: MONTELUKAST SODIUM 10 MG TABLET. PO SCH (20:20)
[2017-06-11] MEDS: LISINOPRIL 10 MG TABLET PO SCH (20:20)
[2017-06-11] MEDS: SEVELAMER CARBONATE 800 MG TABLET. PO SCH (20:21)
[2017-06-11] MEDS: diphenhydrAMINE HCL 25 MG CAPSULE PO SCH (20:21)
[2017-06-11] MEDS: CARVEDILOL 12.5 MG TABLET. PO SCH (20:22)
[2017-06-11] MEDS: FUROSEMIDE 80 MG TABLET. PO SCH (20:23)
[2017-06-11] MEDS: amLODIPine BESYLATE 10 MG TABLET PO SCH (20:23)
[2017-06-11] MEDS: LORazepam 1 MG TABLET PO PRN (20:23)
[2017-06-11] MEDS: PREGABALIN 50 MG CAPSULE PO SCH (20:24)
[2017-06-11] MEDS: PARoxetine 20 MG TABLET PO SCH (20:24)
[2017-06-11] MEDS: CETIRIZINE HCL 10 MG TABLET. PO SCH (20:25)
[2017-06-11] MEDS ORDERED: DARBEPOETIN ALFA 60 MCG/0.3 ML DISP.SYRIN. SQ SCH (21:00)
[2017-06-12] MEDS: HYDROcodone/APAP 7.5/325MG 1 TAB TABLET PO PRN ×3 (01:51→20:43)
--- NOTE | 2017-06-12 02:41 | ACF ---
Admission Forms Criteria VASCULAR DISEASE GRG Clinical Indications for Admission to Inpatient Care (Place 'X' for any and all applicable criteria): Hospital admission is needed for appropriate care of the patient because of ANY ONE of the following (1)(2)(3)(4): [ ]I. Life-threatening or limb-threatening skin ulcer as indicated by ANY ONE of the following(5): [ ]a) Surrounding cellulitis unresponsive to outpatient treatment [ ]b) Wet gangrene [ ]c) Lymphangitis [ ]d) Bacteremia [ ]II. Gangrene requiring intensity and frequency of care not manageable to outpatient, emergency, or observation level of care(5) [ ]III. Severe pain requiring acute inpatient management [X]IV. Interventional revascularization (eg, surgery, thrombolysis) needed (eg , critical limb ischemia)(21) [ ]V. Urgent inpatient IV anticoagulation needed due to ALL of the following: [ ]a) Temporary subtherapeutic anticoagulation unacceptable because of high risk of short-term venous or arterial thromboembolism due to ANY ONE of the following(7)(8)(9): [ ]i) Venous thromboembolism within the past 12 months [ ]ii) Underlying malignancy [ ]iii) Patient with mechanical cardiac valve(10)(11) [ ]iv) Underlying hypercoagulable state (eg, protein C or protein S deficiency, antithrombin deficiency, antiphospholipid antibodies) [ ]v) Patient at high risk of thromboembolism (eg, status post orthopedic surgery, history of recurrent venous thromboembolism) [ ]vi) Atrial fibrillation with rheumatic valvular heart disease [ ]vii) Atrial fibrillation with 3 or MORE of the following : [ ]1) Congestive heart failure [ ]2) Hypertension [ ]3) Age 65 years or older [ ]4) Diabetes mellitus [ ]5) History of thromboembolism (eg, stroke, TIA , or systemic embolization) more than 3 months ago [ ]6) Female gender [ ]b) Contraindications to outpatient use of "bridging" agent or alternative oral anticoagulant as indicated by ALL of the following: [ ]i) Contraindication to outpatient use of low-molecular -weight heparin as "bridging" agent as indicated by ANY ONE of the following(8) : [ ]1) Documented current or history of heparin- induced thrombocytopenia(12) [ ]2) Severe thrombocytopenia (eg, platelet count less than 50,000/mm3 (50 x109/L)) [ ]3) Documented allergy to heparin, low- molecular-weight heparin, or pork products [ ]4) Renal failure (creatinine clearance < 30 mL /min/1.73m2 (0.50 mL/sec/1.73m2) or on dialysis) [ ]5) Inability to manage self-injection (eg, by patient, caregiver, or visiting nurse) [ ]ii) Contraindication to outpatient use of fondaparinux as "bridging" agent as indicated by ANY ONE of the following(13)(14)(15)(16): [ ]1) Severe thrombocytopenia (eg, platelet count less than 50,000/mm3 (50 x109/L)) [ ]2) Hypersensitivity to fondaparinux, related drugs, or product components [ ]3) Renal failure (creatinine clearance less than 30 mL/min/1.73m2 (0.50 mL/sec/1.73m2) or on dialysis) [ ]4) Inability to manage self-injection (eg, by patient, caregiver, or visiting nurse) [ ]iii) Oral direct thrombin inhibitor (eg, dabigatran) or oral coagulation factor Xa inhibitor (eg, rivaroxaban) not appropriate as oral anticoagulation (eg, indication not appropriate) or contraindicated (eg, hypersensitivity, renal failure)(13)(16)(17)(18)(19)(20) [ ]. Suspected severe acute ischemia due to peripheral vascular disease as indicated by ANY ONE of the following(5)(6): [ ]a) Tissue necrosis [ ]b) Severe pain [ ]c) Acute pulselessness [ ]d) Other evidence of acute severe ischemia (eg, lactic acidosis , motor dysfunction) [ ]VII. Acute or newly diagnosed major vessel (eg, aorta) dissection, rupture, or leakage(5)(6)(22)(23) [ ]VIII.Vascular Disease and ALL of the following: [ ]a) Symptom or finding for which emergency and observation care have failed or are not considered appropriate (Use General Criteria: Observation Care as appropriate) [ ]b) Presence of ANY ONE of the following: [ ]i) A General Admission Criteria [ ]ii) A Pediatric General Admission Criteria The [facility] content [facility] by [facility] has been revised. The portions of the content which have been revised are identified through the use of italic text or in bold, and [facility] has neither reviewed nor approved the modified material. All other unmodified content is copyright [facility]. Please see references footnoted in the original [facility] edition 2016 Admission Criteria Met?: Yes SENG CRENSHAW Jun 12, 2017 02:41
[2017-06-12 05:03] LABS: HEMATOCRIT 31.2 % (36.0-47.0); HEMOGLOBIN 9.5 g/dL (12.0-15.5); RED BLOOD COUNT 2.91 x10^6/uL (3.50-5.40); RED CELL DISTRIBUTION WIDTH 18.1 % (11.5-14.5); WHITE BLOOD COUNT 4.8 x10^3/uL (4.0-11.0)
[2017-06-12 05:45] LABS: CALCIUM 8.6 mg/dL (8.5-10.1); CREATININE 4.3 mg/dL (0.6-1.0); GFR 11.3; POTASSIUM 4.1 mmol/L (3.5-5.1)
[2017-06-12] MEDS: LEVOTHYROXINE 100 MCG TABLET PO SCH (06:02)
[2017-06-12 07:00] VITALS: BP 142/84
[2017-06-12] MEDS ORDERED: fentaNYL PF VIAL 100 MCG/2 ML VIAL IV PRN (07:00)
[2017-06-12] MEDS ORDERED: LIDOCAINE 1% 1 ML SYRINGE. ID PRN (07:00)
[2017-06-12] MEDS ORDERED: IV NORMAL SALINE 1000ML BAG 1,000 ML IV SCH (07:00)
[2017-06-12] MEDS ORDERED: PROCHLORPERAZINE 10 MG/2 ML VIAL. IV PRN (07:00)
[2017-06-12] MEDS: BUDESONIDE 0.5 MG/2 ML NEBU. NEB SCH ×2 (07:35→19:38)
[2017-06-12] MEDS: ALBUTEROL SULFATE 2.5 MG/3 ML NEBU. NEB SCH ×4 (07:35→19:38)
[2017-06-12] MEDS: CARVEDILOL 12.5 MG TABLET. PO SCH ×2 (08:00→17:00)
[2017-06-12] MEDS: SEVELAMER CARBONATE 800 MG TABLET. PO SCH ×3 (08:00→17:00)
--- NOTE | 2017-06-12 08:19 | RAD ---
Exam performed: Left upper extremity venous Doppler. History: Left upper extremity dialysis fistula, evaluation of patency. Date of service: 06/11/17. Comparison: None available Discussion: Real-time grayscale, color-flow, Doppler Doppler and spectral analysis of the fistula was attempted. Note is made that this study was technically difficult due to presence of dressings. The technologist tried to remove one of the 2 dressings and could not stop the bleeding. Patient was too scared to remove the second dressing. Patient has had multiple surgeries and grafts placed in the left upper extremity. There is suggestion of what appears to be left basilic to brachial artery graft although the anatomy was somewhat unclear due to several prior surgeries. No definite thrombus was seen in the evaluated portion of the graft. Impression: No definite thrombus seen. See discussion above.
--- NOTE | 2017-06-12 08:38 | PDOC ---
PROGRESS NOTES Subjective Subjective Patient c/o pain at site of temporary dialysis catheter placed yesterday. Objective Objective Vital Signs Date Time Temp Pulse Resp B/P (MAP) Pulse Ox O2 Delivery O2 Flow Rate FiO2 06/12/17 07:51 Nasal Cannula 3.0 06/12/17 07:00 98.6 91 19 142/84 (103) 98 98.6 Intake and Output 06/12/17 07:00 Intake Total 1600 ml Output Total 650 ml Balance 950 ml Intake Oral 1600 ml Output Urine Total 650 ml Physical Exam Abdomen: Normal bowel sounds, Soft, No tenderness Heart: Regular rate Extremities: No edema General: Alert, Oriented X3, No acute distress Lungs: Clear to auscultation Assessment Assessment Problems Medical Problems: (1) Hemorrhage of arteriovenous fistula Status: Acute Plan Plan of Care 1. hemorrhage from AV fistula - stable overnight. Dr Altman plans surgery today with revision of fistula as indicated. 2. ESRD - continue dialysis as scheduled using temporary catheter. 3. HTN - controlled, continue present meds. 4. asthma - stable. 5. chronic pain - continue po pain meds, use IV only when patient is NPO. 6. chronic anxiety and depression - stable, continue home meds. Comment Review of Relevant I have reviewed the following items ernesto (where applicable) has been applied. Labs Laboratory Tests Test 06/11/17 05:30 06/12/17 04:05 White Blood Count 6.6 x10^3/uL (4.0-11.0) 4.8 x10^3/uL (4.0-11.0) Red Blood Count 2.93 x10^6/uL (3.50-5.40) 2.91 x10^6/uL (3.50-5.40) Hemoglobin 9.8 g/dL (12.0-15.5) 9.5 g/dL (12.0-15.5) Hematocrit 30.9 % (36.0-47.0) 31.2 % (36.0-47.0) Mean Corpuscular Volume 106 fL (79-100) 107 fL (79-100) Mean Corpuscular Hemoglobin 33 pg (25-35) 33 pg (25-35) Mean Corpuscular Hemoglobin Concent 32 g/dL (31-37) 31 g/dL (31-37) Red Cell Distribution Width 18.7 % (11.5-14.5) 18.1 % (11.5-14.5) Platelet Count 139 x10^3/uL (140-400) 113 x10^3/uL (140-400) Neutrophils (%) (Auto) 68 % (31-73) Lymphocytes (%) (Auto) 16 % (24-48) Monocytes (%) (Auto) 11 % (0-9) Eosinophils (%) (Auto) 3 % (0-3) Basophils (%) (Auto) 1 % (0-3) Neutrophils # (Auto) 4.5 x10^3uL (1.8-7.7) Lymphocytes # (Auto) 1.1 x10^3/uL (1.0-4.8) Monocytes # (Auto) 0.7 x10^3/uL (0.0-1.1) Eosinophils # (Auto) 0.2 x10^3/uL (0.0-0.7) Basophils # (Auto) 0.1 x10^3/uL (0.0-0.2) Prothrombin Time 14.8 SEC (11.7-14.0) Prothromb Time International Ratio 1.2 (0.8-1.1) Activated Partial Thromboplast Time 32 SEC (24-38) Sodium Level 138 mmol/L (136-145) 141 mmol/L (136-145) Potassium Level 4.9 mmol/L (3.5-5.1) 4.1 mmol/L (3.5-5.1) Chloride Level 102 mmol/L (98-107) 102 mmol/L (98-107) Carbon Dioxide Level 21 mmol/L (21-32) 25 mmol/L (21-32) Anion Gap 15 (6-14) 14 (6-14) Blood Urea Nitrogen 63 mg/dL (7-20) 31 mg/dL (7-20) Creatinine 6.6 mg/dL (0.6-1.0) 4.3 mg/dL (0.6-1.0) Estimated GFR (Cockcroft-Gault) 6.9 11.3 Glucose Level 85 mg/dL (70-99) 88 mg/dL (70-99) Calcium Level 8.5 mg/dL (8.5-10.1) 8.6 mg/dL (8.5-10.1) Laboratory Tests Test 06/12/17 04:05 White Blood Count 4.8 x10^3/uL (4.0-11.0) Red Blood Count 2.91 x10^6/uL (3.50-5.40) Hemoglobin 9.5 g/dL (12.0-15.5) Hematocrit 31.2 % (36.0-47.0) Mean Corpuscular Volume 107 fL (79-100) Mean Corpuscular Hemoglobin 33 pg (25-35) Mean Corpuscular Hemoglobin Concent 31 g/dL (31-37) Red Cell Distribution Width 18.1 % (11.5-14.5) Platelet Count 113 x10^3/uL (140-400) Sodium Level 141 mmol/L (136-145) Potassium Level 4.1 mmol/L (3.5-5.1) Chloride Level 102 mmol/L (98-107) Carbon Dioxide Level 25 mmol/L (21-32) Anion Gap 14 (6-14) Blood Urea Nitrogen 31 mg/dL (7-20) Creatinine 4.3 mg/dL (0.6-1.0) Estimated GFR (Cockcroft-Gault) 11.3 Glucose Level 88 mg/dL (70-99) Calcium Level 8.6 mg/dL (8.5-10.1) Medications Current Medications Fentanyl Citrate (Fentanyl 2ml Vial) 25 mcg PRN Q15MIN PRN IV PAIN GREATER THAN 3/10 Last administered on 06/11/17 05:49; Start 06/11/17 at 05:45; Stop at 13:39; Status DC Ondansetron HCl (Zofran) 4 mg PRN Q8HRS PRN IV NAUSEA/VOMITING Last administered on 06/11/17 20:24; Start 06/11/17 at 07:15; Stop 06/12/17 at 07:14 ; Status DC Fentanyl Citrate (Fentanyl 2ml Vial) 50 mcg PRN Q2HR PRN IV PAIN Last administered on 06/11/17 09:28; Start 06/11/17 at 07:15; Stop 06/12/17 at 07:14 ; Status DC Acetaminophen (Tylenol) 650 mg PRN Q4HRS PRN PO FEVER; Start 06/11/17 at 07:15 ; Stop 06/12/17 at 07:14; Status DC Acetaminophen/ Hydrocodone Bitart (Lortab 7.5/325) 1 tab PRN Q4HRS PRN PO SEVERE PAIN Last administered on 06/12/17 01:51; Start 06/11/17 at 08:15 Lorazepam (Ativan) 1 mg PRN Q6HRS PRN PO VOMITING Last administered on 20:23; Start 06/11/17 at 08:15 Methocarbamol (Robaxin) 1,500 mg QID PRN PO SEVERE PAIN Last administered on 20:20; Start 06/11/17 at 08:15 Ondansetron HCl (Zofran Odt) 8 mg PRN BID PRN PO NAUSEA/VOMITING; Start at 08:30 Diphenhydramine HCl (Benadryl) 25 mg PRN Q6HRS PRN PO ITCHING Last administered on 06/11/17 13:04; Start 06/11/17 at 08:15 Cefazolin Sodium/ Dextrose 50 ml @ 100 mls/hr 1X PREOP PRN IV Surgery; Start 06/12/17 at 06:00; Stop 06/12/17 at 18:00 Darbepoetin Apolinar (Aranesp) 60 mcg WEEKLYHS SQ Last administered on 06/11/17 20 :19; Start 06/11/17 at 21:00 Heparin Sodium (Porcine) (Heparin Sodium) 10,000 unit STK-MED ONCE .ROUTE ; Start 06/11/17 at 11:30; Stop 06/11/17 at 11:31; Status DC Lidocaine/Sodium Bicarbonate (Buffered Lidocaine 1%) 20 ml STK-MED ONCE IJ ; Start 06/11/17 at 11:30; Stop 06/11/17 at 11:31; Status DC Heparin Sodium/ Sodium Chloride 500 ml @ As Directed STK-MED ONCE .ROUTE ; Start 06/11/17 at 11:30; Stop 06/11/17 at 11:31; Status DC Midazolam HCl (Versed) 5 mg STK-MED ONCE .ROUTE ; Start 06/11/17 at 11:42; Stop 06/11/17 at 11:43; Status DC Fentanyl Citrate (Fentanyl 5ml Vial) 250 mcg STK-MED ONCE .ROUTE ; Start at 11:42; Stop 06/11/17 at 11:43; Status DC Cefazolin Sodium 100 ml @ As Directed STK-MED ONCE IV ; Start 06/11/17 at 11:42 ; Stop 06/11/17 at 11:43; Status DC Heparin Sodium/ Sodium Chloride 1,000 unit 1X ONCE IART Last administered on 11:45; Start 06/11/17 at 11:45; Stop 06/11/17 at 12:01; Status DC Midazolam HCl (Versed) 5 mg 1X ONCE IV Last administered on 06/11/17 11:45; Start 06/11/17 at 11:45; Stop 06/11/17 at 12:01; Status DC Fentanyl Citrate (Fentanyl 5ml Vial) 250 mcg 1X ONCE IV Last administered on 11:45; Start 06/11/17 at 11:45; Stop 06/11/17 at 12:01; Status DC Lidocaine/ Epinephrine (Xylocaine 2%-Epi 1:100,000) 20 ml 1X ONCE IJ Last administered on 06/11/17 11:45; Start 06/11/17 at 11:45; Stop 06/11/17 at 12:01 ; Status DC Heparin Sodium (Porcine) (Heparin Sodium) 2,600 unit 1X ONCE INT CAT Last administered on 06/11/17 11:45; Start 06/11/17 at 11:45; Stop 06/11/17 at 12:01 ; Status DC Cefazolin Sodium/ Dextrose 50 ml @ 100 mls/hr 1X ONCE IV Last administered on 06/11/17 11:45; Start 06/11/17 at 11:45; Stop 06/11/17 at 12:14; Status DC Info (PHARMACY MONITORING -- do not chart) 1 each PRN DAILY PRN MC SEE COMMENTS ; Start 06/11/17 at 13:45 Acetaminophen (Tylenol) 500 mg Q6HRS PRN PO PAIN Last administered on 15:55; Start 06/11/17 at 14:15 Acyclovir (Zovirax) 200 mg BID PO Last administered on 06/11/17 20:19; Start 06/11/17 at 21:00 Amlodipine Besylate (Norvasc) 10 mg HS PO Last administered on 06/11/17 20:23 ; Start 06/11/17 at 21:00 Carvedilol (Coreg) 25 mg BIDWMEALS PO Last administered on 06/11/17 20:22; Start 06/11/17 at 17:00 Furosemide (Lasix) 80 mg TID PO Last administered on 06/11/17 20:23; Start at 21:00 Hydralazine HCl (Apresoline) 50 mg TID PO Last administered on 06/11/17 20:22 ; Start 06/11/17 at 21:00 Levothyroxine Sodium (Synthroid) 100 mcg DAILY07 PO Last administered on 06:02; Start 06/12/17 at 07:00 Lidocaine/ Prilocaine (Emla) 1 oniel PRN 1X PRN TP PAIN; Start 06/11/17 at 14:15 Lisinopril (Prinivil) 10 mg HS PO Last administered on 06/11/17 20:20; Start 06/11/17 at 21:00 Loperamide HCl (Imodium) 2 mg PRN Q15MIN PRN PO DIARRHEA; Start 06/11/17 at 14: 15 Montelukast Sodium (Singulair) 10 mg QHS PO Last administered on 06/11/17 20: 20; Start 06/11/17 at 21:00 Paroxetine HCl (Paxil) 20 mg QHS PO Last administered on 06/11/17 20:24; Start 06/11/17 at 21:00 Pregabalin (Lyrica) 50 mg BID PO Last administered on 06/11/17 20:24; Start at 21:00 Sevelamer Carbonate (Renvela) 1,600 mg TIDWMEALS PO Last administered on 20:21; Start 06/11/17 at 17:00 Non-Formulary Medication 2 puff PRN Q6HRS PRN INH SHORTNESS OF BREATH; Start at 14:15; Status UNV Diphenhydramine HCl (Benadryl) 50 mg QHS PO Last administered on 06/11/17 20: 21; Start 06/11/17 at 21:00 Non-Formulary Medication 2 puff DAILY IH ; Start 06/12/17 at 09:00; Status UNV Cetirizine HCl (ZyrTEC) 10 mg QHS PO Last administered on 06/11/17t 20:25; Start 06/11/17 at 21:00 Albuterol Sulfate (Ventolin Neb Soln) 2.5 mg RTQID NEB ; Start 06/11/17 at 16:00 Albuterol Sulfate (Ventolin Neb Soln) 2.5 mg PRN Q6HRS PRN NEB SHORTNESS OF BREATH; Start 06/11/17 at 14:30 Budesonide (Pulmicort) 0.5 mg RTBID NEB ; Start 06/11/17 at 20:00 Sodium Chloride 1,000 ml @ 1,000 mls/hr Q1H PRN IV hypotension; Start 06/11/17 at 15:32; Stop 06/11/17 at 21:31; Status DC Diphenhydramine HCl (Benadryl) 25 mg 1X PRN PRN IV ITCHING Last administered on 06/11/17t 15:45; Start 06/11/17 at 15:45; Stop 06/12/17 at 15:44 Diphenhydramine HCl (Benadryl) 25 mg 1X PRN PRN IV ITCHING; Start 06/11/17 at 15:45; Stop 06/12/17 at 15:44 Sodium Chloride 1,000 ml @ 400 mls/hr Q2H30M PRN IV PATENCY; Start 06/11/17 at 15:32; Stop 06/12/17 at 03:31; Status DC Info (PHARMACY MONITORING -- do not chart) 1 each PRN DAILY PRN MC SEE COMMENTS ; Start 06/11/17 at 15:45; Status UNV Ondansetron HCl (Zofran) 4 mg PRN Q6HRS PRN IV NAUSEA/VOMITING; Start 06/12/17 at 07:00; Stop 06/13/17 at 06:59 Fentanyl Citrate (Fentanyl 2ml Vial) 25 mcg PRN Q5MIN PRN IV MILD PAIN; Start 06/12/17 at 07:00; Stop 06/13/17 at 06:59 Fentanyl Citrate (Fentanyl 2ml Vial) 50 mcg PRN Q5MIN PRN IV MODERATE PAIN; Start 06/12/17 at 07:00; Stop 8/23/17 at 06:59 Lidocaine HCl 2 ml PRN 1X PRN ID PRIOR TO IV START; Start 06/12/17 at 07:00; Stop 06/13/17 at 06:59 Prochlorperazine Edisylate (Compazine) 5 mg PACU PRN PRN IV NAUSEA, MRX1; Start 06/12/17 at 07:00; Stop 06/13/17 at 06:59 Sodium Chloride 1,000 ml @ 0 mls/hr Q0M IV ; Start 06/12/17 at 07:00 Active Scripts Active Hydralazine Hcl 50 Mg Tablet 50 Mg PO TID Synthroid (Levothyroxine Sodium) 100 Mcg Tablet 100 Mcg PO DAILY07 Aspirin Ec (Aspirin) 81 Mg Tablet.dr 81 Mg PO DAILYWBKFT Montelukast Sodium Tablet (Montelukast Sodium) 10 Mg Tablet 10 Mg PO QHS Carvedilol 12.5 Mg Tablet 25 Mg PO BIDWMEALS Hydrocodone-Apap 7.5-325 (Hydrocodone Bit/Acetaminophen) 1 Each Tablet 1 Tab PO PRN Q4HRS PRN 14 Days Aranesp Syringe (Darbepoetin Apolinar In Polysorbat) 60 Mcg/0.3 Ml Disp.syrin 60 Mcg SQ WEEKLYHS 30 Days Furosemide 80 Mg Tablet 80 Mg PO TID 30 Days Loperamide (Loperamide Hcl) 2 Mg Capsule 2 Mg PO PRN Q15MIN PRN 30 Days Reported Lisinopril 10 Mg Tablet 1 Tab PO HS Lyrica (Pregabalin) 50 Mg Capsule 1 Cap PO BID Lorazepam 1 Mg Tablet 1 Mg PO PRN Q6HRS PRN Renvela (Sevelamer Carbonate) 800 Mg Tablet 2 Tab PO TID Lidocaine-Prilocaine Cream (Lidocaine/Prilocaine) 30 Gm Cream..g. 1 Oniel TP UD Amlodipine Besylate 10 Mg Tablet 10 Mg PO HS Advair 250-50 Diskus (Fluticasone/Salmeterol) 1 Each Disk.w.dev 2 Puff IH DAILY Proair Hfa Inhaler (Albuterol Sulfate) 8.5 Gm Hfa.aer.ad 2 Puff INH PRN Q6HRS PRN Acyclovir 200 Mg Capsule 200 Mg PO BID Paroxetine Hcl 20 Mg Tablet 20 Mg PO QHS Nighttime Sleep Aid (Diphenhydramine Hcl) 50 Mg Capsule 50 Mg PO QHS Ondansetron Hcl 8 Mg Tablet 8 Mg PO PRN Q8HRS PRN Methocarbamol 750 Mg Tablet 1,500 Mg PO QID Tylenol Extra Strength (Acetaminophen) 500 Mg Tablet 500 Mg PO Q6HRS PRN Claritin (Loratadine) 10 Mg Capsule 10 Mg PO HS Vitals/I & O Vital Sign - Last 24 Hours 06/11/17 06/11/17 06/11/17 06/11/17 09:28 11:00 11:45 12:15 Temp 97.5 97.5 Pulse 86 90 Resp 20 16 16 B/P (MAP) 136/92 (107) Pulse Ox 96 100 97 O2 Delivery Nasal Cannula Room Air Nasal Cannula O2 Flow Rate 3.0 3.0 06/11/17 06/11/17 06/11/17 06/11/17 12:30 12:45 13:00 13:04 Temp 97.7 97.7 97.7 97.7 97.7 97.7 Pulse 84 87 90 Resp 19 B/P (MAP) 125/76 (92) 137/69 (91) 143/78 (99) Pulse Ox 97 98 99 O2 Delivery Room Air Room Air Room Air O2 Flow Rate 3.0 06/11/17 06/11/17 06/11/17 06/11/17 13:15 13:45 19:00 20:00 Temp 97.7 97.7 99.3 97.7 97.7 99.3 Pulse 87 87 110 Resp 19 19 18 B/P (MAP) 157/85 (109) 145/83 (103) 165/90 (115) Pulse Ox 100 100 99 O2 Delivery Room Air Room Air Room Air Nasal Cannula O2 Flow Rate 3.0 06/11/17 06/11/17 06/11/17 06/11/17 20:20 20:22 20:22 20:23 Pulse 87 87 87 B/P (MAP) 151/80 150/80 150/80 Pulse Ox 100 O2 Delivery Nasal Cannula O2 Flow Rate 3.0 06/11/17 06/11/17 06/12/17 06/12/17 20:23 23:00 01:51 02:51 Temp 97.9 97.9 Pulse 87 89 Resp 18 18 18 B/P (MAP) 150/80 107/63 (78) Pulse Ox 90 90 90 O2 Delivery Room Air Nasal Cannula Nasal Cannula O2 Flow Rate 3.0 3.0 06/12/17 06/12/17 07:00 07:51 Temp 98.6 98.6 Pulse 91 Resp 19 B/P (MAP) 142/84 (103) Pulse Ox 98 O2 Delivery Room Air Nasal Cannula O2 Flow Rate 3.0 Intake and Output 06/11/17 06/11/17 06/12/17 15:00 23:00 07:00 Intake Total 250 ml 1100 ml 250 ml Output Total 650 ml Balance 250 ml 450 ml 250 ml SYLWIA MÉNDEZ MD Jun 12, 2017 08:37
[2017-06-12] MEDS ORDERED: LIDOCAINE 1% 20 ML VIAL. ONE (08:48)
[2017-06-12] MEDS ORDERED: SURGICEL FIBRILLAR 1X2 EACH. ONE ×2 (08:48→16:30)
[2017-06-12] MEDS ORDERED: PAPAVERINE 60 MG/2 ML VIAL FOR OR ONLY. ONE (08:48)
[2017-06-12] MEDS ORDERED: SALMETEROL IH SCH (09:00)
[2017-06-12] MEDS ORDERED: FLUTICASONE IH SCH (09:00)
[2017-06-12] MEDS: PREGABALIN 50 MG CAPSULE PO SCH ×2 (09:00→20:43)
[2017-06-12] MEDS: FUROSEMIDE 80 MG TABLET. PO SCH ×3 (09:00→20:45)
[2017-06-12] MEDS: ACYCLOVIR 200 MG CAPSULE. PO SCH ×2 (09:00→20:45)
[2017-06-12] MEDS: ONDANSETRON PF 4 MG/2 ML VIAL. IV PRN ×2 (09:12→20:45)
[2017-06-12 11:00] VITALS: BP 149/83
--- NOTE | 2017-06-12 11:02 | PDOC ---
Renal-Progress Notes Subjective Notes Notes NONE History of Present Illness Hx of present illness STABLE Vitals Vitals Vital Signs Date Time Temp Pulse Resp B/P (MAP) Pulse Ox O2 Delivery O2 Flow Rate FiO2 06/12/17 10:30 Nasal Cannula 3.0 06/12/17 07:00 98.6 91 19 142/84 (103) 98 98.6 Weight Weight [ ] I.O. Intake and Output Intake and Output 06/12/17 07:00 Intake Total 1600 ml Output Total 650 ml Balance 950 ml Intake Oral 1600 ml Output Urine Total 650 ml Labs Labs Laboratory Tests Test 06/12/17 04:05 White Blood Count 4.8 x10^3/uL (4.0-11.0) Red Blood Count 2.91 x10^6/uL (3.50-5.40) Hemoglobin 9.5 g/dL (12.0-15.5) Hematocrit 31.2 % (36.0-47.0) Mean Corpuscular Volume 107 fL (79-100) Mean Corpuscular Hemoglobin 33 pg (25-35) Mean Corpuscular Hemoglobin Concent 31 g/dL (31-37) Red Cell Distribution Width 18.1 % (11.5-14.5) Platelet Count 113 x10^3/uL (140-400) Sodium Level 141 mmol/L (136-145) Potassium Level 4.1 mmol/L (3.5-5.1) Chloride Level 102 mmol/L (98-107) Carbon Dioxide Level 25 mmol/L (21-32) Anion Gap 14 (6-14) Blood Urea Nitrogen 31 mg/dL (7-20) Creatinine 4.3 mg/dL (0.6-1.0) Estimated GFR (Cockcroft-Gault) 11.3 Glucose Level 88 mg/dL (70-99) Calcium Level 8.6 mg/dL (8.5-10.1) Review of Systems Constitutional: yes: weakness, alert, oriented Ears/Nose/Throat: Yes: no symptom reported Eyes: Yes: no symptom reported Cardiovascular: Yes no symptom reported Musculoskeletal: Yes: muscle stiffness Skin: Yes no symptom reported Psychiatric/Neurological: Yes: no symptom reported Physical Exam General Appearance: no apparent distress Skin: warm Respiratory: bilateral CTA Heart: S1S2 Abdomen: soft, bowel sounds present Extremities: pulses present, other (LEFT ARM BB AVF HAS A GOOD THRILL AND BRUIT ) Neurology: alert, oriented Musculoskeletal: Other Assessment Assessment IMP ESRD ANEMIA HTN LEFT BB AVF SITE BLEEDING PLAN HD TOMORROW CONT LAURA VASCULAR SURGERY TODAY NATE MAYER MD Jun 12, 2017 11:02
[2017-06-12] MEDS: LORazepam 1 MG TABLET PO PRN ×2 (11:40→20:45)
[2017-06-12] MEDS ORDERED: HEPARIN SODIUM 5,000 UNIT in IV NORMAL SALINE 500ML BAG 500 ML IRR ONE (13:00)
[2017-06-12] MEDS ORDERED: LIDOCAINE 2% PF Vial for OR 5 ML VIAL. ONE (13:10)
[2017-06-12] MEDS ORDERED: DESFLURANE 31 TO 60 MINUTES IH ONE (13:10)
[2017-06-12] MEDS ORDERED: DEXAMETHASONE SOD PHOS 20 MG/5 ML VIAL. ONE (13:10)
[2017-06-12] MEDS ORDERED: PROPOFOL 20 ML IV ONE (13:10)
[2017-06-12] MEDS ORDERED: ONDANSETRON PF 4 MG/2 ML VIAL. ONE (13:10)
[2017-06-12] MEDS ORDERED: fentaNYL PF VIAL 100 MCG/2 ML VIAL ONE ×3 (13:10→17:34)
[2017-06-12] MEDS ORDERED: diphenhydrAMINE 50 MG/ML VIAL ONE (13:49)
[2017-06-12] MEDS ORDERED: MIDAZOLAM HCL/PF 2 MG/2 ML VIAL. ONE (13:54)
[2017-06-12] MEDS ORDERED: ceFAZolin 1GM IVPB FOR OMNI 100 ML IV ONE (14:27)
[2017-06-12] MEDS ORDERED: HEPARIN for IV BOLUS 10,000 UNIT/10 ML VIAL. ONE (14:51)
[2017-06-12] MEDS ORDERED: PROTAMINE 50 MG/5 ML VIAL. IV ONE ×2 (16:03→16:26)
--- NOTE | 2017-06-12 17:09 | PDOC4 ---
Operative Note Operative Note Brief OP Note PreOP: Bleeding Left arm AV fistula with venous aneurysms PostOP: Same Procedure: Revision with creation of new graft in different plane using 8mmPTFE Decompression and debridement of venous aneurysms Surgeon: Mary Jane Harden DO, DELORES, RPVI EBL: 50 mL Complications: None MARY JANE HARDEN Jun 12, 2017 17:09
[2017-06-12] MEDS ORDERED: MORPHINE SULFATE 4 MG/ML DISP.SYRIN. IV PRN (17:15)
[2017-06-12] MEDS ORDERED: MORPHINE SULFATE 4 MG/ML DISP.SYRIN. ONE (17:20)
[2017-06-12] MEDS: fentaNYL PF VIAL 100 MCG/2 ML VIAL IV PRN ×2 (17:34→17:53)
--- NOTE | 2017-06-12 17:45 | OP ---
DATE OF SURGERY: 06/12/2017 ATTENDING SURGEON: Jason Harden DO PREOPERATIVE DIAGNOSES: 1. Bleeding left upper extremity arteriovenous fistula to cutaneous fistula. 2. 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 3. End-stage renal disease, on hemodialysis. 4. Hypertension. 5. Hyperlipidemia. 6. Diabetes mellitus. POSTOPERATIVE DIAGNOSES: 1. Bleeding left upper extremity arteriovenous fistula to cutaneous fistula. 2. 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 3. End-stage renal disease, on hemodialysis. 4. Hypertension. 5. Hyperlipidemia. 6. Diabetes mellitus. PROCEDURES: 1. Revision of left upper extremity AV fistula with creation of an interposition graft using an 8 mm Propaten graft with the proximal anastomosis at the inflow source and the distal anastomosis at her outflow source tunneled in a new plane. 2. Resection of central venous aneurysms x 2 through separate incision. ANESTHESIA: General. SPECIMENS: None. ESTIMATED BLOOD LOSS: 50 mL. COMPLICATIONS: None. PREOPERATIVE INDICATIONS: The patient is a 42-year-old female who I was asked by my partners to revise her left upper extremity fistula since she had two large venous aneurysms from buttonhole access with overlying eschar and evidence of recent bleeding. The patient was consented for revision of her fistula and she understood all risks, benefits, and alternatives of the procedure including but not limited to arterial steal syndrome. The patient understood these risks and agreed to proceed. OPERATIVE PROCEDURE: The patient was brought to the operating suite and placed in supine position. After establishing adequate general endotracheal anesthesia, the patient's left upper extremity was prepped and draped in sterile fashion. Next, timeout procedure was performed. It was confirmed that the patient did receive appropriate preoperative antibiotics and the correct operative site was marked and draped. Following this, a #15 blade scalpel was used to make a transverse incision overlying her inflow source at the brachial artery. Dissection was carried down through the skin and subcutaneous tissue and I was able to identify the patient's proximal portion of her fistula, which was aneurysmal and this was circumferentially dissected and controlled with vessel loop. Next, I continued my dissection lateral to where there was a large venous aneurysm and then the vessel tapered and then subsequently led into an even larger venous aneurysm. I was able to gain circumferential control at this location as well. Following this, I prepared the skin for anticipated tunneling in this direction out of the original plane of her current fistula. Next, I made a transverse incision overlying her outflow source at the level of the axilla. Dissection was carried down where a PTFE graft was identified and circumferentially dissected. Next, the patient was systemically heparinized and this was circulated for 3 minutes. Following this, the inflow source was controlled proximally and distally using vascular clamps and then I completely transected the venous aneurysm away from the brachial artery inflow source and I also transected the portion leading into the venous aneurysm in preparation for tunneling another graft in this location. Next, I oversewed the venous outflow portion leading into the venous aneurysm with a 3-0 Prolene suture. Following this, a Arelis-Wick tunneler was used to tunnel from the brachial location up to the venous outflow source. Next, an 8 mm regular walled Propaten PTFE graft was tunneled from the venous outflow site to the inflow site. Following this, using a 5-0 Prolene suture, an end-to-end anastomosis was created to the existing AV fistula inflow source in the graft. Following this, all tension was pulled from the graft and then this was trimmed and then I controlled my proximal and distal aspects of the venous outflow tract and then this was divided. There was a nitinol stent in this location and this was completely removed out of the venous outflow tract. Next, I also oversewed the venous stump of the graft using 3-0 Prolene suture. Following this, our graft was trimmed and then an end-to-end anastomosis was sewn in place using 5-0 Prolene suture in a running fashion. Prior to completing anastomosis, we did backbleed and flushed the vessels appropriately and then flow was restored. The patient had excellent immediate return of her thrill and excellent flow through the graft both proximally and distally. This was easily palpable in the skin again and tunneled in a new plane from her existing fistula. Following this, protamine was administered and fibrillar was used to gain hemostasis at both anastomotic sites. After I was satisfied with the hemostasis, the subcutaneous layer was closed using interrupted 3-0 Vicryl suture, followed by 3-0 Vicryl for the skin in a deep dermal fashion. Next, Dermabond was applied to seal the skin. I had covered at the beginning of the procedure, the venous aneurysm sites with Tegaderms as to prevent any further cross contamination. Next, after both fresh incisions were sealed adequately using Dermabond, the Tegaderms were removed from the venous aneurysm sites and then one venous aneurysm was entered using a 15 blade scalpel. All of the venous blood was removed from both sites and the venous aneurysms were completely decompressed after doing this. Next, the areas of necrotic skin overlying her buttonholes were debrided down to healthy tissue. A #15 blade scalpel was utilized to do this limited to the subcutaneous tissue. Following this, the skin was partially closed using skin mehran and a small portion was left open to allow this to drain. Next, sterile dressings were placed and a 6-inch Yannick wrap was also placed to help compress the venous aneurysms closed. The patient had a palpable pulse at the level of the wrist and the radial artery. She tolerated the procedure well and was extubated and taken to the postanesthesia care unit in stable condition. JASON HARDEN DO DR: JAIR/dejuan JOB#: [id number] / [id number]
[2017-06-12 19:00] VITALS: BP 130/72
[2017-06-12] MEDS: LISINOPRIL 10 MG TABLET PO SCH (20:44)
[2017-06-12] MEDS: PARoxetine 20 MG TABLET PO SCH (20:44)
[2017-06-12] MEDS: diphenhydrAMINE HCL 25 MG CAPSULE PO SCH (20:44)
[2017-06-12] MEDS: MONTELUKAST SODIUM 10 MG TABLET. PO SCH (20:44)
[2017-06-12] MEDS: amLODIPine BESYLATE 10 MG TABLET PO SCH (20:45)
[2017-06-12] MEDS: METHOCARBAMOL 750 MG TABLET PO PRN (20:45)
[2017-06-12] MEDS: CETIRIZINE HCL 10 MG TABLET. PO SCH (20:45)
[2017-06-12 23:00] VITALS: BP 110/66
[2017-06-13] MEDS: HYDROcodone/APAP 7.5/325MG 1 TAB TABLET PO PRN ×3 (02:17→13:41)
[2017-06-13] MEDS: LORazepam 1 MG TABLET PO PRN ×2 (03:37→09:48)
[2017-06-13] MEDS: METHOCARBAMOL 750 MG TABLET PO PRN ×2 (03:37→12:58)
[2017-06-13] MEDS: LEVOTHYROXINE 100 MCG TABLET PO SCH (05:23)
[2017-06-13 06:49] LABS: HEMATOCRIT 33.3 % (36.0-47.0); RED BLOOD COUNT 3.07 x10^6/uL (3.50-5.40); RED CELL DISTRIBUTION WIDTH 18.2 % (11.5-14.5); WHITE BLOOD COUNT 6.5 x10^3/uL (4.0-11.0)
[2017-06-13 07:00] VITALS: BP 152/86
[2017-06-13 07:12] LABS: CALCIUM 8.8 mg/dL (8.5-10.1); CREATININE 6.5 mg/dL (0.6-1.0); POTASSIUM 4.9 mmol/L (3.5-5.1)
[2017-06-13] MEDS: BUDESONIDE 0.5 MG/2 ML NEBU. NEB SCH (07:50)
[2017-06-13] MEDS: ALBUTEROL SULFATE 2.5 MG/3 ML NEBU. NEB SCH ×2 (07:50→11:39)
[2017-06-13] MEDS ORDERED: IV NORMAL SALINE 1000ML BAG 1,000 ML IV PRN ×2 (07:56)
[2017-06-13] MEDS ORDERED: DIALYSIS PATIENT. MC PRN (08:00)
[2017-06-13] MEDS ORDERED: 0.9 % SODIUM CHLORIDE 10 ML DISP.SYRIN. IV PRN ×2 (08:00)
[2017-06-13] MEDS ORDERED: diphenhydrAMINE 50 MG/ML VIAL IV PRN (08:00)
[2017-06-13] MEDS: CARVEDILOL 12.5 MG TABLET. PO SCH (08:33)
[2017-06-13] MEDS: SEVELAMER CARBONATE 800 MG TABLET. PO SCH ×2 (08:33→12:52)
[2017-06-13] MEDS: FUROSEMIDE 80 MG TABLET. PO SCH ×2 (08:34→13:40)
[2017-06-13] MEDS: PREGABALIN 50 MG CAPSULE PO SCH (08:35)
[2017-06-13] MEDS: ACYCLOVIR 200 MG CAPSULE. PO SCH (08:35)
--- NOTE | 2017-06-13 08:37 | PDOC ---
PROGRESS NOTES Subjective Subjective Patient feels OK, agreeable to discharge home today after dialysis. Objective Objective Vital Signs Date Time Temp Pulse Resp B/P (MAP) Pulse Ox O2 Delivery O2 Flow Rate FiO2 06/13/17 07:51 99 Nasal Cannula 5.0 06/13/17 02:17 18 06/12/17 23:00 98.6 92 110/66 (81) 98.6 Intake and Output 06/13/17 07:00 Intake Total 1135 ml Output Total 550 ml Balance 585 ml Intake Oral 460 ml IV Total 675 ml Output Urine Total 550 ml # Voids 1 Physical Exam Abdomen: Normal bowel sounds, Soft, No tenderness Heart: Regular rate, No murmurs (III/ systolic murmur) Extremities: No edema General: Alert, Oriented X3, No acute distress Lungs: Clear to auscultation (no wheezes heard) Assessment Assessment Problems Medical Problems: (1) Hemorrhage of arteriovenous fistula Status: Acute Plan Plan of Care 1. Hemorrhage from AV fistula - resolved, Hgb stable. Had revision of shunt yesterday. Home today if consultants are in agreement. 2. ESRD - using temporary catheter presently. Dialysis today on her usual schedule. 3. CHF - appears stable, continue her usual Lasix. 4. HTN - controlled, continue present meds 5. asthma - stable, continue inhalers. 6. chronic pain - stable with po pain meds. 7. chronic anxiety and depression - stable, home on her usual meds. 8. multiple myeloma - presently stable, continue outpt tx as per Oncology. Comment Review of Relevant I have reviewed the following items ernesto (where applicable) has been applied. Labs Laboratory Tests Test 06/12/17 04:05 06/13/17 06:30 White Blood Count 4.8 x10^3/uL (4.0-11.0) 6.5 x10^3/uL (4.0-11.0) Red Blood Count 2.91 x10^6/uL (3.50-5.40) 3.07 x10^6/uL (3.50-5.40) Hemoglobin 9.5 g/dL (12.0-15.5) 10.0 g/dL (12.0-15.5) Hematocrit 31.2 % (36.0-47.0) 33.3 % (36.0-47.0) Mean Corpuscular Volume 107 fL (79-100) 109 fL (79-100) Mean Corpuscular Hemoglobin 33 pg (25-35) 33 pg (25-35) Mean Corpuscular Hemoglobin Concent 31 g/dL (31-37) 30 g/dL (31-37) Red Cell Distribution Width 18.1 % (11.5-14.5) 18.2 % (11.5-14.5) Platelet Count 113 x10^3/uL (140-400) 125 x10^3/uL (140-400) Sodium Level 141 mmol/L (136-145) 140 mmol/L (136-145) Potassium Level 4.1 mmol/L (3.5-5.1) 4.9 mmol/L (3.5-5.1) Chloride Level 102 mmol/L (98-107) 102 mmol/L (98-107) Carbon Dioxide Level 25 mmol/L (21-32) 24 mmol/L (21-32) Anion Gap 14 (6-14) 14 (6-14) Blood Urea Nitrogen 31 mg/dL (7-20) 47 mg/dL (7-20) Creatinine 4.3 mg/dL (0.6-1.0) 6.5 mg/dL (0.6-1.0) Estimated GFR (Cockcroft-Gault) 11.3 7.0 Glucose Level 88 mg/dL (70-99) 136 mg/dL (70-99) Calcium Level 8.6 mg/dL (8.5-10.1) 8.8 mg/dL (8.5-10.1) Laboratory Tests Test 06/13/17 06:30 White Blood Count 6.5 x10^3/uL (4.0-11.0) Red Blood Count 3.07 x10^6/uL (3.50-5.40) Hemoglobin 10.0 g/dL (12.0-15.5) Hematocrit 33.3 % (36.0-47.0) Mean Corpuscular Volume 109 fL (79-100) Mean Corpuscular Hemoglobin 33 pg (25-35) Mean Corpuscular Hemoglobin Concent 30 g/dL (31-37) Red Cell Distribution Width 18.2 % (11.5-14.5) Platelet Count 125 x10^3/uL (140-400) Sodium Level 140 mmol/L (136-145) Potassium Level 4.9 mmol/L (3.5-5.1) Chloride Level 102 mmol/L (98-107) Carbon Dioxide Level 24 mmol/L (21-32) Anion Gap 14 (6-14) Blood Urea Nitrogen 47 mg/dL (7-20) Creatinine 6.5 mg/dL (0.6-1.0) Estimated GFR (Cockcroft-Gault) 7.0 Glucose Level 136 mg/dL (70-99) Calcium Level 8.8 mg/dL (8.5-10.1) Medications Current Medications Fentanyl Citrate (Fentanyl 2ml Vial) 25 mcg PRN Q15MIN PRN IV PAIN GREATER THAN 3/10 Last administered on 06/11/17 05:49; Start 06/11/17 at 05:45; Stop at 13:39; Status DC Ondansetron HCl (Zofran) 4 mg PRN Q8HRS PRN IV NAUSEA/VOMITING Last administered on 06/11/17 20:24; Start 06/11/17 at 07:15; Stop 06/12/17 at 07:14 ; Status DC Fentanyl Citrate (Fentanyl 2ml Vial) 50 mcg PRN Q2HR PRN IV PAIN Last administered on 06/11/17 09:28; Start 06/11/17 at 07:15; Stop 06/12/17 at 07:14 ; Status DC Acetaminophen (Tylenol) 650 mg PRN Q4HRS PRN PO FEVER; Start 06/11/17 at 07:15 ; Stop 06/12/17 at 07:14; Status DC Acetaminophen/ Hydrocodone Bitart (Lortab 7.5/325) 1 tab PRN Q4HRS PRN PO SEVERE PAIN Last administered on 06/13/17 02:17; Start 06/11/17 at 08:15 Lorazepam (Ativan) 1 mg PRN Q6HRS PRN PO VOMITING Last administered on 03:37; Start 06/11/17 at 08:15 Methocarbamol (Robaxin) 1,500 mg QID PRN PO SEVERE PAIN Last administered on 03:37; Start 06/11/17 at 08:15 Ondansetron HCl (Zofran Odt) 8 mg PRN BID PRN PO NAUSEA/VOMITING; Start at 08:30 Diphenhydramine HCl (Benadryl) 25 mg PRN Q6HRS PRN PO ITCHING Last administered on 06/11/17 13:04; Start 06/11/17 at 08:15 Cefazolin Sodium/ Dextrose 50 ml @ 100 mls/hr 1X PREOP PRN IV Surgery Last administered on 06/12/17 14:24; Start 06/12/17 at 06:00; Stop 06/12/17 at 18:00 ; Status DC Darbepoetin Apolinar (Aranesp) 60 mcg WEEKLYHS SQ Last administered on 06/11/17 20 :19; Start 06/11/17 at 21:00 Heparin Sodium (Porcine) (Heparin Sodium) 10,000 unit STK-MED ONCE .ROUTE ; Start 06/11/17 at 11:30; Stop 06/11/17 at 11:31; Status DC Lidocaine/Sodium Bicarbonate (Buffered Lidocaine 1%) 20 ml STK-MED ONCE IJ ; Start 06/11/17 at 11:30; Stop 06/11/17 at 11:31; Status DC Heparin Sodium/ Sodium Chloride 500 ml @ As Directed STK-MED ONCE .ROUTE ; Start 06/11/17 at 11:30; Stop 06/11/17 at 11:31; Status DC Midazolam HCl (Versed) 5 mg STK-MED ONCE .ROUTE ; Start 06/11/17 at 11:42; Stop 06/11/17 at 11:43; Status DC Fentanyl Citrate (Fentanyl 5ml Vial) 250 mcg STK-MED ONCE .ROUTE ; Start at 11:42; Stop 06/11/17 at 11:43; Status DC Cefazolin Sodium 100 ml @ As Directed STK-MED ONCE IV ; Start 06/11/17 at 11:42 ; Stop 06/11/17 at 11:43; Status DC Heparin Sodium/ Sodium Chloride 1,000 unit 1X ONCE IART Last administered on 11:45; Start 06/11/17 at 11:45; Stop 06/11/17 at 12:01; Status DC Midazolam HCl (Versed) 5 mg 1X ONCE IV Last administered on 06/11/17 11:45; Start 06/11/17 at 11:45; Stop 06/11/17 at 12:01; Status DC Fentanyl Citrate (Fentanyl 5ml Vial) 250 mcg 1X ONCE IV Last administered on 11:45; Start 06/11/17 at 11:45; Stop 06/11/17 at 12:01; Status DC Lidocaine/ Epinephrine (Xylocaine 2%-Epi 1:100,000) 20 ml 1X ONCE IJ Last administered on 06/11/17 11:45; Start 06/11/17 at 11:45; Stop 06/11/17 at 12:01 ; Status DC Heparin Sodium (Porcine) (Heparin Sodium) 2,600 unit 1X ONCE INT CAT Last administered on 06/11/17 11:45; Start 06/11/17 at 11:45; Stop 06/11/17 at 12:01 ; Status DC Cefazolin Sodium/ Dextrose 50 ml @ 100 mls/hr 1X ONCE IV Last administered on 06/11/17 11:45; Start 06/11/17 at 11:45; Stop 06/11/17 at 12:14; Status DC Info (PHARMACY MONITORING -- do not chart) 1 each PRN DAILY PRN MC SEE COMMENTS ; Start 06/11/17 at 13:45 Acetaminophen (Tylenol) 500 mg Q6HRS PRN PO PAIN Last administered on 15:55; Start 06/11/17 at 14:15 Acyclovir (Zovirax) 200 mg BID PO Last administered on 06/12/17 20:45; Start 06/11/17 at 21:00 Amlodipine Besylate (Norvasc) 10 mg HS PO Last administered on 06/12/17 20:45 ; Start 06/11/17 at 21:00 Carvedilol (Coreg) 25 mg BIDWMEALS PO Last administered on 06/11/17 20:22; Start 06/11/17 at 17:00 Furosemide (Lasix) 80 mg TID PO Last administered on 06/12/17 20:45; Start at 21:00 Hydralazine HCl (Apresoline) 50 mg TID PO Last administered on 06/12/17 20:44 ; Start 06/11/17 at 21:00 Levothyroxine Sodium (Synthroid) 100 mcg DAILY07 PO Last administered on 05:23; Start 06/12/17 at 07:00 Lidocaine/ Prilocaine (Emla) 1 oniel PRN 1X PRN TP PAIN; Start 06/11/17 at 14:15 Lisinopril (Prinivil) 10 mg HS PO Last administered on 06/12/17 20:44; Start 06/11/17 at 21:00 Loperamide HCl (Imodium) 2 mg PRN Q15MIN PRN PO DIARRHEA; Start 06/11/17 at 14: 15 Montelukast Sodium (Singulair) 10 mg QHS PO Last administered on 06/12/17 20: 44; Start 06/11/17 at 21:00 Paroxetine HCl (Paxil) 20 mg QHS PO Last administered on 06/12/17 20:44; Start 06/11/17 at 21:00 Pregabalin (Lyrica) 50 mg BID PO Last administered on 06/12/17 20:43; Start at 21:00 Sevelamer Carbonate (Renvela) 1,600 mg TIDWMEALS PO Last administered on 20:21; Start 06/11/17 at 17:00 Non-Formulary Medication 2 puff PRN Q6HRS PRN INH SHORTNESS OF BREATH; Start at 14:15; Status UNV Diphenhydramine HCl (Benadryl) 50 mg QHS PO Last administered on 06/12/17 20: 44; Start 06/11/17 at 21:00 Non-Formulary Medication 2 puff DAILY IH ; Start 06/12/17 at 09:00; Status UNV Cetirizine HCl (ZyrTEC) 10 mg QHS PO Last administered on 06/12/17 20:45; Start 06/11/17 at 21:00 Albuterol Sulfate (Ventolin Neb Soln) 2.5 mg RTQID NEB ; Start 06/11/17 at 16:00 Albuterol Sulfate (Ventolin Neb Soln) 2.5 mg PRN Q6HRS PRN NEB SHORTNESS OF BREATH; Start 06/11/17 at 14:30 Budesonide (Pulmicort) 0.5 mg RTBID NEB ; Start 06/11/17 at 20:00 Sodium Chloride 1,000 ml @ 1,000 mls/hr Q1H PRN IV hypotension; Start 06/11/17 at 15:32; Stop 06/11/17 at 21:31; Status DC Diphenhydramine HCl (Benadryl) 25 mg 1X PRN PRN IV ITCHING Last administered on 06/11/17 15:45; Start 06/11/17 at 15:45; Stop 06/12/17 at 15:44; Status DC Diphenhydramine HCl (Benadryl) 25 mg 1X PRN PRN IV ITCHING; Start 06/11/17 at 15:45; Stop 06/12/17 at 15:44; Status DC Sodium Chloride 1,000 ml @ 400 mls/hr Q2H30M PRN IV PATENCY; Start 06/11/17 at 15:32; Stop 06/12/17 at 03:31; Status DC Info (PHARMACY MONITORING -- do not chart) 1 each PRN DAILY PRN MC SEE COMMENTS ; Start 06/11/17 at 15:45; Status UNV Ondansetron HCl (Zofran) 4 mg PRN Q6HRS PRN IV NAUSEA/VOMITING Last administered on 06/12/17 20:45; Start 06/12/17 at 07:00; Stop 06/13/17 at 06:59 ; Status DC Fentanyl Citrate (Fentanyl 2ml Vial) 25 mcg PRN Q5MIN PRN IV MILD PAIN; Start 06/12/17 at 07:00; Stop 06/13/17 at 06:59; Status DC Fentanyl Citrate (Fentanyl 2ml Vial) 50 mcg PRN Q5MIN PRN IV MODERATE PAIN Last administered on 06/12/17 17:53; Start 06/12/17 at 07:00; Stop 06/13/17 at 06:59; Status DC Lidocaine HCl 2 ml PRN 1X PRN ID PRIOR TO IV START; Start 06/12/17 at 07:00; Stop 06/13/17 at 06:59; Status DC Prochlorperazine Edisylate (Compazine) 5 mg PACU PRN PRN IV NAUSEA, MRX1 Last administered on 06/12/17 17:23; Start 06/12/17 at 07:00; Stop 06/13/17 at 06:59 ; Status DC Sodium Chloride 1,000 ml @ 0 mls/hr Q0M IV ; Start 06/12/17 at 07:00 Cellulose 1 each STK-MED ONCE .ROUTE Last administered on 06/12/17 16:05; Start 06/12/17 at 08:48; Stop 06/12/17 at 08:49; Status DC Papaverine HCl 60 mg STK-MED ONCE .ROUTE ; Start 06/12/17 at 08:48; Stop at 08:49; Status DC Lidocaine HCl 20 ml STK-MED ONCE .ROUTE ; Start 06/12/17 at 08:48; Stop at 08:49; Status DC Cefazolin Sodium 1 gm/Sodium Chloride 500 ml @ 500 mls/hr 1X PERIOP ONCE IRR Last administered on 06/12/17 14:55; Start 06/12/17 at 13:00; Stop 06/12/17 at 13:59; Status DC Heparin Sodium (Porcine) 5000 unit/Sodium Chloride 505 ml @ 505 mls/hr 1X PERIOP ONCE IRR Last administered on 06/12/17 14:55; Start 06/12/17 at 13:00 ; Stop 06/12/17 at 13:59; Status DC Dexamethasone Sodium Phosphate (Decadron) 20 mg STK-MED ONCE .ROUTE ; Start at 13:10; Stop 06/12/17 at 13:11; Status DC Ondansetron HCl (Zofran) 4 mg STK-MED ONCE .ROUTE ; Start 06/12/17 at 13:10; Stop 06/12/17 at 13:11; Status DC Propofol 20 ml @ As Directed STK-MED ONCE IV ; Start 06/12/17 at 13:10; Stop at 13:11; Status DC Lidocaine HCl (Lidocaine Pf 2% Vial) 5 ml STK-MED ONCE .ROUTE ; Start 06/12/17 at 13:10; Stop 06/12/17 at 13:11; Status DC Desflurane (Suprane) 30 ml STK-MED ONCE IH ; Start 06/12/17 at 13:10; Stop 06/12 at 13:11; Status DC Fentanyl Citrate (Fentanyl 2ml Vial) 100 mcg STK-MED ONCE .ROUTE ; Start at 13:10; Stop 06/12/17 at 13:11; Status DC Diphenhydramine HCl (Benadryl) 50 mg STK-MED ONCE .ROUTE ; Start 06/12/17 at 13: 49; Stop 06/12/17 at 13:50; Status DC Midazolam HCl (Versed) 2 mg STK-MED ONCE .ROUTE ; Start 06/12/17 at 13:54; Stop 06/12/17 at 13:55; Status DC Cefazolin Sodium 100 ml @ As Directed STK-MED ONCE IV ; Start 06/12/17 at 14:27 ; Stop 06/12/17 at 14:28; Status DC Heparin Sodium (Porcine) (Heparin Sodium) 10,000 unit STK-MED ONCE .ROUTE ; Start 06/12/17 at 14:51; Stop 06/12/17 at 14:52; Status DC Protamine Sulfate 50 mg STK-MED ONCE IV ; Start 06/12/17 at 16:03; Stop at 16:04; Status DC Fentanyl Citrate (Fentanyl 2ml Vial) 100 mcg STK-MED ONCE .ROUTE ; Start at 16:13; Stop 06/12/17 at 16:14; Status DC Protamine Sulfate 50 mg STK-MED ONCE IV ; Start 06/12/17 at 16:26; Stop at 16:27; Status DC Cellulose 1 each STK-MED ONCE .ROUTE Last administered on 06/12/17t 16:31; Start 06/12/17 at 16:30; Stop 06/12/17 at 16:31; Status DC Morphine Sulfate 2 mg PRN Q2HR PRN IV PAIN Last administered on 06/12/17t 17:23 ; Start 06/12/17 at 17:15 Morphine Sulfate 4 mg STK-MED ONCE .ROUTE ; Start 06/12/17 at 17:20; Stop at 17:21; Status DC Fentanyl Citrate (Fentanyl 2ml Vial) 100 mcg STK-MED ONCE .ROUTE ; Start at 17:34; Stop 06/12/17 at 17:35; Status DC Sodium Chloride 1,000 ml @ 1,000 mls/hr Q1H PRN IV hypotension; Start 06/13/17 at 07:56; Stop 06/13/17 at 13:55 Diphenhydramine HCl (Benadryl) 50 mg 1X PRN PRN IV ITCHING; Start 06/13/17 at 08:00; Stop 06/14/17 at 07:59 Sodium Chloride (Normal Saline Flush) 10 ml 1X PRN PRN IV AP catheter pack; Start 06/13/17 at 08:00; Stop 06/14/17 at 07:59 Sodium Chloride (Normal Saline Flush) 10 ml 1X PRN PRN IV MANAGER ORDER catheter pack; Start 06/13/17 at 08:00; Stop 06/14/17 at 07:59 Sodium Chloride 1,000 ml @ 400 mls/hr Q2H30M PRN IV PATENCY; Start 06/13/17 at 07:56; Stop 06/13/17 at 19:55 Info (PHARMACY MONITORING -- do not chart) 1 each PRN DAILY PRN MC SEE COMMENTS ; Start 06/13/17 at 08:00; Stop 06/13/17 at 08:06; Status DC Active Scripts Active Hydralazine Hcl 50 Mg Tablet 50 Mg PO TID Synthroid (Levothyroxine Sodium) 100 Mcg Tablet 100 Mcg PO DAILY07 Aspirin Ec (Aspirin) 81 Mg Tablet. 81 Mg PO DAILYWBKFT Montelukast Sodium Tablet (Montelukast Sodium) 10 Mg Tablet 10 Mg PO QHS Carvedilol 12.5 Mg Tablet 25 Mg PO BIDWMEALS Hydrocodone-Apap 7.5-325 (Hydrocodone Bit/Acetaminophen) 1 Each Tablet 1 Tab PO PRN Q4HRS PRN 14 Days Aranesp Syringe (Darbepoetin Apolinar In Polysorbat) 60 Mcg/0.3 Ml Disp.syrin 60 Mcg SQ WEEKLYHS 30 Days Furosemide 80 Mg Tablet 80 Mg PO TID 30 Days Loperamide (Loperamide Hcl) 2 Mg Capsule 2 Mg PO PRN Q15MIN PRN 30 Days Reported Lisinopril 10 Mg Tablet 1 Tab PO HS Lyrica (Pregabalin) 50 Mg Capsule 1 Cap PO BID Lorazepam 1 Mg Tablet 1 Mg PO PRN Q6HRS PRN Renvela (Sevelamer Carbonate) 800 Mg Tablet 2 Tab PO TID Lidocaine-Prilocaine Cream (Lidocaine/Prilocaine) 30 Gm Cream..g. 1 Oniel TP UD Amlodipine Besylate 10 Mg Tablet 10 Mg PO HS Advair 250-50 Diskus (Fluticasone/Salmeterol) 1 Each Disk.w.dev 2 Puff IH DAILY Proair Hfa Inhaler (Albuterol Sulfate) 8.5 Gm Hfa.aer.ad 2 Puff INH PRN Q6HRS PRN Acyclovir 200 Mg Capsule 200 Mg PO BID Paroxetine Hcl 20 Mg Tablet 20 Mg PO QHS Nighttime Sleep Aid (Diphenhydramine Hcl) 50 Mg Capsule 50 Mg PO QHS Ondansetron Hcl 8 Mg Tablet 8 Mg PO PRN Q8HRS PRN Methocarbamol 750 Mg Tablet 1,500 Mg PO QID Tylenol Extra Strength (Acetaminophen) 500 Mg Tablet 500 Mg PO Q6HRS PRN Claritin (Loratadine) 10 Mg Capsule 10 Mg PO HS Vitals/I & O Vital Sign - Last 24 Hours 06/12/17 06/12/17 06/12/17 06/12/17 09:13 11:00 12:11 12:28 Temp 98.6 98.8 98.6 98.8 Pulse 106 101 Resp 20 16 B/P (MAP) 149/83 (105) 133/80 Pulse Ox 95 97 98 O2 Delivery Nasal Cannula Room Air Nasal Cannula Nasal Cannula O2 Flow Rate 3.0 4 5.0 06/12/17 06/12/17 06/12/17 06/12/17 16:54 16:55 17:09 17:23 Temp 97.7 97.7 Pulse 104 102 Resp 20 20 20 B/P (MAP) 124/72 126/75 Pulse Ox 91 87 98 O2 Delivery Simple Mask Mask Simple Mask Nasal Cannula O2 Flow Rate 10 10 10 2.0 06/12/17 06/12/17 06/12/17 06/12/17 17:24 17:34 17:39 17:50 Pulse 102 105 Resp 20 20 20 B/P (MAP) 124/70 127/73 Pulse Ox 91 91 95 O2 Delivery Nasal Cannula Nasal Cannula Nasal Cannula Nasal Cannula O2 Flow Rate 2 2.0 2 3 06/12/17 06/12/17 06/12/17 06/12/17 17:53 17:54 19:00 19:48 Temp 97.0 98.5 97.0 98.5 Pulse 78 112 Resp 20 20 20 B/P (MAP) 127/58 130/72 (91) Pulse Ox 96 96 O2 Delivery Nasal Cannula Nasal Cannula Nasal Cannula O2 Flow Rate 3.0 3 3.0 06/12/17 06/12/17 06/12/17 06/12/17 20:43 20:44 20:44 20:45 Pulse 112 112 112 Resp 18 B/P (MAP) 130/72 130/72 130/72 Pulse Ox 96 O2 Delivery Nasal Cannula O2 Flow Rate 3.0 06/12/17 06/12/17 06/13/17 06/13/17 21:43 23:00 02:17 03:17 Temp 98.6 98.6 Pulse 92 Resp 18 20 18 B/P (MAP) 110/66 (81) Pulse Ox 98 98 98 O2 Delivery Nasal Cannula Nasal Cannula Nasal Cannula O2 Flow Rate 3.0 3.0 06/13/17 07:51 Pulse Ox 99 O2 Delivery Nasal Cannula O2 Flow Rate 5.0 Intake and Output 06/12/17 06/12/17 06/13/17 15:00 23:00 07:00 Intake Total 650 ml 125 ml 360 ml Output Total 450 ml 100 ml Balance 650 ml -325 ml 260 ml SYLWIA MÉNDEZ MD Jun 13, 2017 08:37
--- NOTE | 2017-06-13 09:14 | DS ---
DATE OF DISCHARGE: 06/13/2017 CHIEF COMPLAINT: Bleeding from fistula. HISTORY OF PRESENT ILLNESS: The patient is a 42-year-old female with end-stage renal disease, on dialysis. She presented to the Emergency Room with the above complaint. She reported that she had removed a Band-Aid that had been covering her fistula at home and a scab came off with it. She then had the onset of brisk bleeding, which she could not get to stop. She was brought to the Emergency Room. After some efforts there, the bleeding was stopped. A pressure dressing was applied and she was admitted for further treatment. HOSPITAL COURSE: The patient was admitted and seen in consultation by Vascular Surgery and Nephrology. She had no further bleeding from her AV fistula. A temporary dialysis catheter was placed and she had dialysis on her usual schedule through this. On 06/12/2017, she underwent a revision of her AV fistula by Dr. Obrien. 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 He placed a new graft in the fistula. The patient has been stable postoperatively. She will have her usual dialysis today through the temporary dialysis catheter. The patient has multiple chronic medical problems including congestive heart failure, hypertension, asthma and chronic anxiety and depression. She also has multiple myeloma and is on outpatient treatment for this. Her home medications for her chronic conditions were continued and these remained stable. She will resume all of these at discharge and followup with Oncology as advised. She will be discharged to home today after dialysis if all consultants are in agreement. FINAL DIAGNOSES: 1. Hemorrhage from AV fistula. 2. End-stage renal disease, on dialysis. 3. Congestive heart failure. 4. Hypertension. 5. Asthma. 6. Chronic pain. 7. Chronic anxiety and depression. 8. Multiple myeloma. 9. Hypothyroidism. DISCHARGE MEDICATIONS: Acyclovir 200 mg b.i.d., albuterol p.r.n., amlodipine 10 mg daily, aspirin 81 mg daily, carvedilol 25 mg b.i.d., Aranesp weekly, Benadryl p.r.n., Advair 250/50 two puffs daily, furosemide 80 mg t.i.d., hydralazine 50 mg t.i.d., hydrocodone 7.5/325 p.r.n., levothyroxine 100 mcg daily, lisinopril 10 mg daily, loratadine 10 mg daily, lorazepam 1 mg p.r.n., methocarbamol 1500 mg q.i.d. p.r.n., Singulair 10 mg daily, Zofran 8 mg p.r.n., paroxetine 20 mg daily, Lyrica 50 mg b.i.d., Renvela 800 mg 2 tablets t.i.d. FOLLOWUP: Follow up with Dr. Howard as needed. Follow up with consultants as advised. SYLWIA MÉNDEZ MD DR: MADDIE/dejuan JOB#: [id number] / [id number] COURTNEY
--- NOTE | 2017-06-13 11:32 | PDOC ---
Renal-Progress Notes Subjective Notes Notes SOME LEFT ARM PAIN History of Present Illness Hx of present illness STABLE Vitals Vitals Vital Signs Date Time Temp Pulse Resp B/P (MAP) Pulse Ox O2 Delivery O2 Flow Rate FiO2 06/13/17 10:35 20 99 Nasal Cannula 3.0 06/13/17 08:34 99 152/86 06/13/17 07:00 98.1 98.1 Weight Weight [ ] I.O. Intake and Output Intake and Output 06/13/17 07:00 Intake Total 1135 ml Output Total 550 ml Balance 585 ml Intake Oral 460 ml IV Total 675 ml Output Urine Total 550 ml # Voids 1 Labs Labs Laboratory Tests Test 06/13/17 06:30 White Blood Count 6.5 x10^3/uL (4.0-11.0) Red Blood Count 3.07 x10^6/uL (3.50-5.40) Hemoglobin 10.0 g/dL (12.0-15.5) Hematocrit 33.3 % (36.0-47.0) Mean Corpuscular Volume 109 fL (79-100) Mean Corpuscular Hemoglobin 33 pg (25-35) Mean Corpuscular Hemoglobin Concent 30 g/dL (31-37) Red Cell Distribution Width 18.2 % (11.5-14.5) Platelet Count 125 x10^3/uL (140-400) Sodium Level 140 mmol/L (136-145) Potassium Level 4.9 mmol/L (3.5-5.1) Chloride Level 102 mmol/L (98-107) Carbon Dioxide Level 24 mmol/L (21-32) Anion Gap 14 (6-14) Blood Urea Nitrogen 47 mg/dL (7-20) Creatinine 6.5 mg/dL (0.6-1.0) Estimated GFR (Cockcroft-Gault) 7.0 Glucose Level 136 mg/dL (70-99) Calcium Level 8.8 mg/dL (8.5-10.1) Review of Systems Constitutional: yes: weakness, alert, oriented Ears/Nose/Throat: Yes: no symptom reported Eyes: Yes: no symptom reported Cardiovascular: Yes no symptom reported Musculoskeletal: Yes: muscle stiffness Skin: Yes no symptom reported Psychiatric/Neurological: Yes: no symptom reported Physical Exam General Appearance: no apparent distress Skin: warm Respiratory: bilateral CTA Heart: S1S2 Abdomen: soft, bowel sounds present Extremities: pulses present, other (LEFT ARM BB AVF HAS A GOOD THRILL AND BRUIT ) Neurology: alert, oriented Musculoskeletal: Other Assessment Assessment IMP ESRD ANEMIA HTN LEFT BB AVF SITE BLEEDING S/P LEFT AVF REVISION PLAN HD TODAY UF TO DW CONT NATE PATINO MD Jun 13, 2017 11:32
--- NOTE | 2017-06-13 13:29 | DISCH ---
DISCHARGE INSTRUCTIONS Condition on Discharge Condition on Discharge: Stable Activity After Discharge Activity Instructions for Disc: Activity as tolerated Follow-Up Follow up with: Follow up with Dr. Obrien on SundayJune 29 at 1pm, 030- [phone] DEBBIE BAILEY MD Jun 13, 2017 13:29
--- NOTE | 2017-06-13 13:32 | PDOC ---
Provider Note Provider Note VSS awake and alert left arm incisions intact, no hematomas, pseudoaneurysm flat with compression, shunt with good pulse, no forearm swelling sp left arm AV fistula revision to a graft and decompression of pseudoaneurysms - continue compression to the left arm for one week - follow up appt in the discharge to see brain Marquez for discharge today - continue using permacath for dialysis DEBBIE BAILEY MD Jun 13, 2017 13:32
[2017-06-13 13:40] VITALS: BP 110/50
== END 2017-06-13 14:50 | disposition home or self-care (01) | DRG 252 ==
LOC: ER 05:25 → 5 NORTH 06:46
PROVIDERS: ADMIT Family Medicine; ATTEND Family Medicine
PROC: 0JH63XZ Insertion of Tunneled Vascular Access Device into Chest Subcutaneous Tissue and Fascia, Percutaneous Approach (ICD-10-PCS; 2017-06-11)
PROC: 02H633Z Insertion of Infusion Device into Right Atrium, Percutaneous Approach (ICD-10-PCS; 2017-06-11)
PROC: B2141ZZ Fluoroscopy of Right Heart using Low Osmolar Contrast (ICD-10-PCS; 2017-06-11)
PROC: B244ZZZ Ultrasonography of Right Heart (ICD-10-PCS; 2017-06-11)
PROC: 03R Upper Arteries, Replacement (ICD-10-PCS; 2017-06-12)
PROC: 05PY0DZ Removal of Intraluminal Device from Upper Vein, Open Approach (ICD-10-PCS; 2017-06-12)
PROC: 03U80JZ Supplement Left Brachial Artery with Synthetic Substitute, Open Approach (ICD-10-PCS; 2017-06-12)
PROC: 03180JD Bypass Left Brachial Artery to Upper Arm Vein with Synthetic Substitute, Open Approach (ICD-10-PCS; principal; 2017-06-12 13:30)
DX: T82.838A Hemorrhage due to vascular prosthetic devices, implants and grafts, initial encounter (principal); N18.6 End stage renal disease; I13.2 Hypertensive heart and chronic kidney disease with heart failure and with stage 5 chronic kidney disease, or end stage renal disease; C90.00 Multiple myeloma not having achieved remission; E11.22 Type 2 diabetes mellitus with diabetic chronic kidney disease; D64.9 Anemia, unspecified; E03.9 Hypothyroidism, unspecified; E78.5 Hyperlipidemia, unspecified; F32.9 Major depressive disorder, single episode, unspecified; F41.9 Anxiety disorder, unspecified; G89.29 Other chronic pain; J45.909 Unspecified asthma, uncomplicated; I50.9 Heart failure, unspecified; J44.9 Chronic obstructive pulmonary disease, unspecified; K21.9 Gastro-esophageal reflux disease without esophagitis; M79.7 Fibromyalgia; Y83.2 Surgical operation with anastomosis, bypass or graft as the cause of abnormal reaction of the patient, or of later complication, without mention of misadventure at the time of the procedure; E21.3 Hyperparathyroidism, unspecified; Y92.89 Other specified places as the place of occurrence of the external cause; Z87.01 Personal history of pneumonia (recurrent); Z98.51 Tubal ligation status; Z88.5 Allergy status to narcotic agent; Z90.49 Acquired absence of other specified parts of digestive tract; Z99.2 Dependence on renal dialysis; Z98.84 Bariatric surgery status; Z82.49 Family history of ischemic heart disease and other diseases of the circulatory system; Z88.2 Allergy status to sulfonamides; Z88.8 Allergy status to other drugs, medicaments and biological substances; Z71.89 Other specified counseling; T82.898A Other specified complication of vascular prosthetic devices, implants and grafts, initial encounter
CPT/HCPCS: 36415; 36558; 76937; 77001; 80048; 85025; 85027; 85610; 85730; 93971; 96374; 99152; 99153; C1750; C1769; C1892; J0690; J0780; J0881; J1100; J1200; J1644; J2250; J2270; J2405; J2440; J2704; J3010; J3490; J7040; Q0162; Q0163; 99285-25; J2001

== ENCOUNTER 2017-12-06 11:46 | Inpatient (IN) | payer MEDICARE, OTHER ==
[2017-12-06 13:26] LABS: ADD MAN DIFF? NO
[2017-12-06 13:33] LABS: BASO # 0.1 x10^3/uL (0.0-0.2); BASO % 1 % (0-3); EOS # 0.1 x10^3/uL (0.0-0.7); EOS % 1 % (0-3); HEMATOCRIT 25.7 % (36.0-47.0); HEMOGLOBIN 8.3 g/dL (12.0-15.5); LYMPH # 1.5 x10^3/uL (1.0-4.8); LYMPH % 17 % (24-48); MEAN CORPUSCULAR HEMOGLOBIN 30 pg (25-35); MEAN CORPUSCULAR HGB CONC 32 g/dL (31-37); MEAN CORPUSCULAR VOLUME 95 fL (79-100); MONO # 1.1 x10^3/uL (0.0-1.1); MONO % 12 % (0-9); NEUT # 6.3 x10^3uL (1.8-7.7); NEUT % 70 % (31-73); PLATELET COUNT 192 x10^3/uL (140-400); RED BLOOD COUNT 2.72 x10^6/uL (3.50-5.40); RED CELL DISTRIBUTION WIDTH 20.4 % (11.5-14.5)
[2017-12-06 13:46] LABS: BILIRUBIN,URINE NEGATIVE (NEG); CLARITY,URINE CLEAR; COLOR,URINE YELLOW; GLUCOSE,URINE NEGATIVE (NEG); NITRITE,URINE NEGATIVE (NEG); PH,URINE 6.5; PROTEIN,URINE 30 mg/dL (NEG-TRACE); UROBILINOGEN,URINE 0.2 mg/dL (0.2 mg/dL)
[2017-12-06 14:15] LABS: BARBITURATES NEG (NEG); BENZODIAZEPINES NEG (NEG); CANNABINOIDS NEG (NEG); COCAINE NEG (NEG); METHADONE NEG (NEG); OPIATES POS (NEG); PHENCYCLIDINE NEG (NEG)
[2017-12-06 14:16] LABS: AMPHETAMINE/METHAMPHETAMINE NEG (NEG)
[2017-12-06 14:17] LABS: ETHANOL, URINE NEG (NEG)
[2017-12-06 14:24] LABS: BACTERIA,URINE 0 /HPF (0-FEW); RBC,URINE RARE /HPF (0-2); WBC,URINE OCC /HPF (0-4)
[2017-12-06 14:25] LABS: AMORPHOUS SEDIMENT,UR PRESENT /HPF; SQUAMOUS EPITHELIAL CELL,UR OCC /LPF
[2017-12-06 14:52] LABS: ANION GAP 17 (6-14); BLOOD UREA NITROGEN 52 mg/dL (7-20); BUN/CREATININE RATIO 12 (6-20); CALCIUM 8.1 mg/dL (8.5-10.1); CARBON DIOXIDE 20 mmol/L (21-32); CHLORIDE 102 mmol/L (98-107); CREATININE 4.3 mg/dL (0.6-1.0); GFR 11.3; GLUCOSE 83 mg/dL (70-99); POTASSIUM 4.2 mmol/L (3.5-5.1); SODIUM 139 mmol/L (136-145)
[2017-12-06 14:55] LABS: ETHANOL < 10 mg/dL (0-10)
[2017-12-06 14:57] LABS: ALBUMIN 2.5 g/dL (3.4-5.0); ALBUMIN/GLOBULIN RATIO 0.5 (1.0-1.7); ALK PHOS 199 U/L (46-116); ALT (SGPT) 15 U/L (14-59); AST (SGOT) 24 U/L (15-37); MAGNESIUM 1.7 mg/dL (1.8-2.4); TOTAL BILIRUBIN 1.3 mg/dL (0.2-1.0); TOTAL PROTEIN 7.4 g/dL (6.4-8.2)
[2017-12-06 14:58] LABS: TROPONINI 0.044 ng/mL (0.000-0.055)
[2017-12-06 15:08] LABS: THYROID STIM HORMONE (TSH) 4.714 uIU/mL (0.358-3.74)
[2017-12-06 15:20] LABS: NT-PRO BNP > 35000 pg/mL (0-124)
[2017-12-06] MEDS ORDERED: ONDANSETRON PF 4 MG/2 ML VIAL. IV ×2 (15:30)
[2017-12-06 16:18] LABS: ANISOCYTOSIS MOD; OVALOCYTES OCC; PLT ESTIMATE ADEQUATE (ADEQUATE); POLYCHROMASIA SLIGHT; SCHISTOCYTES OCC
[2017-12-06] MEDS: HYDROcodone/APAP 7.5/325MG 1 TAB TABLET PO ×2 (17:47)
[2017-12-06] MEDS: oxyCODONE IR 5 MG TABLET PO ×2 (23:32)
[2017-12-07 02:30] LABS: LACTIC ACID 1.2 mmol/L (0.4-2.0)
[2017-12-07] MEDS: oxyCODONE IR 5 MG TABLET PO ×4 (03:53→08:22)
[2017-12-07 08:03] LABS: ADD MAN DIFF? NO
[2017-12-07 08:08] LABS: BASO # 0.1 x10^3/uL (0.0-0.2); BASO % 1 % (0-3); EOS # 0.1 x10^3/uL (0.0-0.7); EOS % 1 % (0-3); HEMATOCRIT 28.3 % (36.0-47.0); HEMOGLOBIN 8.8 g/dL (12.0-15.5); LYMPH % 26 % (24-48); MEAN CORPUSCULAR HEMOGLOBIN 31 pg (25-35); MEAN CORPUSCULAR HGB CONC 31 g/dL (31-37); MEAN CORPUSCULAR VOLUME 99 fL (79-100); MONO # 1.1 x10^3/uL (0.0-1.1); MONO % 14 % (0-9); NEUT # 4.5 x10^3uL (1.8-7.7); NEUT % 58 % (31-73); PLATELET COUNT 267 x10^3/uL (140-400); RED BLOOD COUNT 2.85 x10^6/uL (3.50-5.40); WHITE BLOOD COUNT 7.7 x10^3/uL (4.0-11.0)
[2017-12-07 08:18] LABS: ANION GAP 17 (6-14); BLOOD UREA NITROGEN 61 mg/dL (7-20); CALCIUM 8.7 mg/dL (8.5-10.1); CARBON DIOXIDE 18 mmol/L (21-32); CHLORIDE 101 mmol/L (98-107); CREATININE 5.3 mg/dL (0.6-1.0); GFR 8.9; GLUCOSE 87 mg/dL (70-99); POTASSIUM 5.1 mmol/L (3.5-5.1); SODIUM 136 mmol/L (136-145)
[2017-12-07] MEDS: SEVELAMER CARBONATE 800 MG TABLET. PO ×6 (09:00→16:57)
[2017-12-07] MEDS ORDERED: ONDANSETRON PF 4 MG/2 ML VIAL. IV ×2 (09:00)
[2017-12-07] MEDS ORDERED: HYDROcodone/APAP 10/325 1 TAB TABLET PO ×2 (09:00)
[2017-12-07] MEDS: ASPIRIN ENTERIC COATED 81 MG TABLET.DR. PO ×2 (09:00)
[2017-12-07] MEDS ORDERED: PHENYLEPHRINE SUPP.RECT. PR ×2 (09:15)
[2017-12-07] MEDS: SENNOSIDES/DOCUSATE 8.6/50MG TABLET. PO ×4 (09:46→21:23)
[2017-12-07] MEDS: LEVOTHYROXINE 100 MCG TABLET PO ×2 (09:47)
[2017-12-07] MEDS: PANTOPRAZOLE 40 MG TABLET.DR. PO ×4 (09:47→16:30)
[2017-12-07] MEDS: METHOCARBAMOL 750 MG TABLET PO ×4 (09:47→12:37)
[2017-12-07] MEDS: FERROUS SULFATE 325 MG TABLET. PO ×2 (09:47)
[2017-12-07] MEDS: PREGABALIN 50 MG CAPSULE PO ×4 (09:47→21:26)
[2017-12-07] MEDS: CETIRIZINE HCL 10 MG TABLET. PO ×2 (21:23)
[2017-12-07] MEDS: FOLIC/VIT B COMP W-C (RENAL) TABLET. PO ×2 (21:23)
[2017-12-07] MEDS: amLODIPine BESYLATE 10 MG TABLET PO ×2 (21:23)
[2017-12-07] MEDS: MONTELUKAST SODIUM 10 MG TABLET. PO ×2 (21:23)
[2017-12-07] MEDS: PARoxetine 20 MG TABLET PO ×2 (21:24)
[2017-12-07] MEDS: DARBEPOETIN ALFA 60 MCG/0.3 ML DISP.SYRIN. SQ ×2 (21:27)
[2017-12-08 07:14] LABS: ANION GAP 18 (6-14); BLOOD UREA NITROGEN 71 mg/dL (7-20); CALCIUM 8.4 mg/dL (8.5-10.1); CARBON DIOXIDE 18 mmol/L (21-32); CHLORIDE 103 mmol/L (98-107); CREATININE 6.4 mg/dL (0.6-1.0); GFR 7.1; GLUCOSE 71 mg/dL (70-99); SODIUM 139 mmol/L (136-145)
[2017-12-08 07:23] LABS: POTASSIUM 5.8 mmol/L (3.5-5.1)
[2017-12-08] MEDS: LEVOTHYROXINE 100 MCG TABLET PO ×2 (07:28)
[2017-12-08] MEDS: PANTOPRAZOLE 40 MG TABLET.DR. PO ×4 (07:28→17:33)
[2017-12-08] MEDS: oxyCODONE IR 5 MG TABLET PO ×4 (07:31→20:21)
[2017-12-08 07:44] LABS: HEMATOCRIT 29.7 % (36.0-47.0); HEMOGLOBIN 9.1 g/dL (12.0-15.5); MEAN CORPUSCULAR HEMOGLOBIN 30 pg (25-35); MEAN CORPUSCULAR HGB CONC 31 g/dL (31-37); MEAN CORPUSCULAR VOLUME 99 fL (79-100); PLATELET COUNT 286 x10^3/uL (140-400); RED CELL DISTRIBUTION WIDTH 20.9 % (11.5-14.5); WHITE BLOOD COUNT 9.9 x10^3/uL (4.0-11.0)
[2017-12-08] MEDS: SEVELAMER CARBONATE 800 MG TABLET. PO ×6 (08:00→17:00)
[2017-12-08] MEDS: FERROUS SULFATE 325 MG TABLET. PO ×2 (14:04)
[2017-12-08] MEDS: PREGABALIN 50 MG CAPSULE PO ×4 (14:04→20:21)
[2017-12-08] MEDS: SENNOSIDES/DOCUSATE 8.6/50MG TABLET. PO ×4 (14:04→20:20)
[2017-12-08] MEDS: ASPIRIN ENTERIC COATED 81 MG TABLET.DR. PO ×2 (14:04)
[2017-12-08] MEDS ORDERED: IV NORMAL SALINE 1000ML BAG 1,000 ML IV ×2 (14:30)
[2017-12-08] MEDS ORDERED: DIALYSIS PATIENT. MC ×4 (14:30)
[2017-12-08] MEDS ORDERED: hydrALAZINE 20 MG/ML VIAL. IVP ×2 (15:15)
[2017-12-08] MEDS: amLODIPine BESYLATE 10 MG TABLET PO ×2 (20:19)
[2017-12-08] MEDS: FOLIC/VIT B COMP W-C (RENAL) TABLET. PO ×2 (20:19)
[2017-12-08] MEDS: PARoxetine 20 MG TABLET PO ×2 (20:19)
[2017-12-08] MEDS: MONTELUKAST SODIUM 10 MG TABLET. PO ×2 (20:19)
[2017-12-08] MEDS: CETIRIZINE HCL 10 MG TABLET. PO ×2 (20:19)
[2017-12-08] MEDS: HYDROcodone/APAP 7.5/325MG 1 TAB TABLET PO ×2 (20:20)
[2017-12-09 05:03] LABS: ADD MAN DIFF? NO
[2017-12-09 05:12] LABS: BASO # 0.1 x10^3/uL (0.0-0.2); BASO % 1 % (0-3); EOS # 0.1 x10^3/uL (0.0-0.7); EOS % 2 % (0-3); HEMATOCRIT 26.5 % (36.0-47.0); HEMOGLOBIN 8.3 g/dL (12.0-15.5); LYMPH # 1.3 x10^3/uL (1.0-4.8); LYMPH % 17 % (24-48); MEAN CORPUSCULAR HEMOGLOBIN 30 pg (25-35); MEAN CORPUSCULAR HGB CONC 31 g/dL (31-37); MEAN CORPUSCULAR VOLUME 97 fL (79-100); MONO # 1.1 x10^3/uL (0.0-1.1); MONO % 14 % (0-9); NEUT # 5.2 x10^3uL (1.8-7.7); NEUT % 66 % (31-73); PLATELET COUNT 229 x10^3/uL (140-400); RED BLOOD COUNT 2.74 x10^6/uL (3.50-5.40); RED CELL DISTRIBUTION WIDTH 20.6 % (11.5-14.5); WHITE BLOOD COUNT 7.8 x10^3/uL (4.0-11.0)
[2017-12-09 05:27] LABS: ANION GAP 10 (6-14); BLOOD UREA NITROGEN 40 mg/dL (7-20); CARBON DIOXIDE 27 mmol/L (21-32); CHLORIDE 101 mmol/L (98-107); CREATININE 4.3 mg/dL (0.6-1.0); GFR 11.3; GLUCOSE 95 mg/dL (70-99); POTASSIUM 3.9 mmol/L (3.5-5.1); SODIUM 138 mmol/L (136-145)
[2017-12-09] MEDS: ASPIRIN ENTERIC COATED 81 MG TABLET.DR. PO ×2 (09:16)
[2017-12-09] MEDS: HYDROcodone/APAP 7.5/325MG 1 TAB TABLET PO ×8 (09:16→23:47)
[2017-12-09] MEDS: SENNOSIDES/DOCUSATE 8.6/50MG TABLET. PO ×4 (09:16→20:19)
[2017-12-09] MEDS: LEVOTHYROXINE 100 MCG TABLET PO ×2 (09:16)
[2017-12-09] MEDS: SEVELAMER CARBONATE 800 MG TABLET. PO ×6 (09:16→16:04)
[2017-12-09] MEDS: FERROUS SULFATE 325 MG TABLET. PO ×2 (09:17)
[2017-12-09] MEDS: PANTOPRAZOLE 40 MG TABLET.DR. PO ×4 (09:17→16:08)
[2017-12-09] MEDS: PREGABALIN 50 MG CAPSULE PO ×4 (09:17→20:19)
[2017-12-09] MEDS: oxyCODONE IR 5 MG TABLET PO ×6 (16:05→23:47)
[2017-12-09] MEDS: FOLIC/VIT B COMP W-C (RENAL) TABLET. PO ×2 (20:19)
[2017-12-09] MEDS: CETIRIZINE HCL 10 MG TABLET. PO ×2 (20:19)
[2017-12-09] MEDS: amLODIPine BESYLATE 10 MG TABLET PO ×2 (20:19)
[2017-12-09] MEDS: PARoxetine 20 MG TABLET PO ×2 (20:19)
[2017-12-09] MEDS: MONTELUKAST SODIUM 10 MG TABLET. PO ×2 (20:19)
[2017-12-10] MEDS: LEVOTHYROXINE 100 MCG TABLET PO ×2 (03:11)
[2017-12-10] MEDS: MORPHINE SULFATE 2 MG/ML DISP.SYRIN. IV ×2 (03:12)
[2017-12-10] MEDS: HYDROcodone/APAP 7.5/325MG 1 TAB TABLET PO ×6 (05:35→20:49)
[2017-12-10] MEDS: PANTOPRAZOLE 40 MG TABLET.DR. PO ×4 (05:35→08:32)
[2017-12-10] MEDS: oxyCODONE IR 5 MG TABLET PO ×4 (05:36→08:33)
[2017-12-10] MEDS: SEVELAMER CARBONATE 800 MG TABLET. PO ×6 (08:31→16:05)
[2017-12-10] MEDS: FERROUS SULFATE 325 MG TABLET. PO ×2 (08:32)
[2017-12-10] MEDS: DOCUSATE SODIUM 100 MG CAPSULE. PO ×2 (08:32)
[2017-12-10] MEDS: SENNOSIDES/DOCUSATE 8.6/50MG TABLET. PO ×4 (08:32→20:48)
[2017-12-10] MEDS: PREGABALIN 50 MG CAPSULE PO ×4 (08:32→20:46)
[2017-12-10] MEDS: ASPIRIN ENTERIC COATED 81 MG TABLET.DR. PO ×2 (08:32)
[2017-12-10] MEDS ORDERED: ZINC OXIDE 20% TOPICAL OINTMENT 28GM TUBE. TP ×2 (10:15)
[2017-12-10] MEDS: FOLIC/VIT B COMP W-C (RENAL) TABLET. PO ×2 (20:48)
[2017-12-10] MEDS: PARoxetine 20 MG TABLET PO ×2 (20:48)
[2017-12-10] MEDS: MONTELUKAST SODIUM 10 MG TABLET. PO ×2 (20:49)
[2017-12-10] MEDS: CETIRIZINE HCL 10 MG TABLET. PO ×2 (20:49)
[2017-12-10] MEDS: amLODIPine BESYLATE 10 MG TABLET PO ×2 (22:17)
[2017-12-11] MEDS: PANTOPRAZOLE 40 MG TABLET.DR. PO ×4 (07:30→15:06)
[2017-12-11] MEDS: HYDROcodone/APAP 7.5/325MG 1 TAB TABLET PO ×8 (07:57→23:56)
[2017-12-11] MEDS: SEVELAMER CARBONATE 800 MG TABLET. PO ×6 (08:00→17:00)
[2017-12-11] MEDS ORDERED: IV NORMAL SALINE 1000ML BAG 1,000 ML IV ×2 (08:44)
[2017-12-11] MEDS ORDERED: ALBUMIN HUMAN 25% 200 ML IV ×2 (08:45)
[2017-12-11] MEDS ORDERED: DIALYSIS PATIENT. MC ×4 (08:45)
[2017-12-11] MEDS: LIDOCAINE 1% PF 2 ML VIAL. INJ ×2 (08:45)
[2017-12-11] MEDS: PREGABALIN 50 MG CAPSULE PO ×4 (09:00→19:34)
[2017-12-11] MEDS: SENNOSIDES/DOCUSATE 8.6/50MG TABLET. PO ×4 (09:00→19:39)
[2017-12-11] MEDS ORDERED: DIPHENHYDRAMINE/ZINC ACETATE 2%/0.1% TOPICAL CREAM 28GM TUBE. TP ×2 (14:45)
[2017-12-11] MEDS: LEVOTHYROXINE 100 MCG TABLET PO ×2 (15:06)
[2017-12-11] MEDS: ASPIRIN ENTERIC COATED 81 MG TABLET.DR. PO ×2 (15:06)
[2017-12-11] MEDS: SODIUM THIOSULFATE 25 GM in TOTAL VOLUME 0 ML IV (15:16)
[2017-12-11] MEDS: CETIRIZINE HCL 10 MG TABLET. PO ×2 (19:33)
[2017-12-11] MEDS: MONTELUKAST SODIUM 10 MG TABLET. PO ×2 (19:34)
[2017-12-11] MEDS: DOCUSATE SODIUM 100 MG CAPSULE. PO ×2 (19:35)
[2017-12-11] MEDS: amLODIPine BESYLATE 10 MG TABLET PO ×2 (19:35)
[2017-12-11] MEDS: PARoxetine 20 MG TABLET PO ×2 (19:36)
[2017-12-11] MEDS: FOLIC/VIT B COMP W-C (RENAL) TABLET. PO ×2 (19:39)
[2017-12-11] MEDS: ACETAMINOPHEN 325 MG TABLET. PO ×2 (19:39)
[2017-12-12 01:15] LABS: HEP B SURFACE ABDY Non Reactive (.); HEP B SURFACE AG Negative (Negative)
[2017-12-12] MEDS: HYDROcodone/APAP 7.5/325MG 1 TAB TABLET PO ×6 (04:07→12:43)
[2017-12-12] MEDS: LEVOTHYROXINE 100 MCG TABLET PO ×2 (05:28)
[2017-12-12] MEDS: PANTOPRAZOLE 40 MG TABLET.DR. PO ×4 (05:29→16:40)
[2017-12-12] MEDS: ASPIRIN ENTERIC COATED 81 MG TABLET.DR. PO ×2 (08:00)
[2017-12-12] MEDS: SEVELAMER CARBONATE 800 MG TABLET. PO ×8 (08:00→16:41)
[2017-12-12] MEDS ORDERED: [UNRECOGNIZED DRUG - OTHER] IV ×2 (09:00)
[2017-12-12] MEDS ORDERED: SODIUM NITRITE IV ×2 (09:00)
[2017-12-12] MEDS: SENNOSIDES/DOCUSATE 8.6/50MG TABLET. PO ×4 (10:55→21:08)
[2017-12-12] MEDS: PREGABALIN 50 MG CAPSULE PO ×4 (10:55→21:08)
[2017-12-12] MEDS ORDERED: METHYL SALICYLATE/MENTHOL TOPICAL OINTMENT 29GM TUBE. TP ×2 (14:00)
[2017-12-12] MEDS: HYDROcodone/APAP 10/325 1 TAB TABLET PO ×4 (16:38→21:20)
[2017-12-12] MEDS: OXYMETAZOLINE 0.05% NASAL SPRAY 30ML BOTTLE. NS ×4 (16:41→21:10)
[2017-12-12] MEDS: LIDOCAINE (700MG/PATCH) PATCH. TD ×2 (16:44)
[2017-12-12] MEDS: MINERAL OIL/PETROLATUM TOPICAL CREAM 113GM JAR. TP ×2 (17:00)
[2017-12-12] MEDS: FOLIC/VIT B COMP W-C (RENAL) TABLET. PO ×2 (21:08)
[2017-12-12] MEDS: CETIRIZINE HCL 10 MG TABLET. PO ×2 (21:08)
[2017-12-12] MEDS: MONTELUKAST SODIUM 10 MG TABLET. PO ×2 (21:08)
[2017-12-12] MEDS: amLODIPine BESYLATE 10 MG TABLET PO ×2 (21:09)
[2017-12-12] MEDS: PARoxetine 20 MG TABLET PO ×2 (21:09)
[2017-12-13] MEDS: HYDROcodone/APAP 10/325 1 TAB TABLET PO ×10 (01:37→20:45)
[2017-12-13] MEDS: PANTOPRAZOLE 40 MG TABLET.DR. PO ×4 (06:12→17:06)
[2017-12-13] MEDS: LEVOTHYROXINE 100 MCG TABLET PO ×2 (06:12)
[2017-12-13] MEDS ORDERED: IV NORMAL SALINE 1000ML BAG 1,000 ML IV ×4 (07:43)
[2017-12-13] MEDS ORDERED: DIALYSIS PATIENT. MC ×4 (07:45)
[2017-12-13] MEDS: LIDOCAINE 1% PF 2 ML VIAL. INJ ×2 (07:45)
[2017-12-13] MEDS: ASPIRIN ENTERIC COATED 81 MG TABLET.DR. PO ×2 (08:07)
[2017-12-13] MEDS: SENNOSIDES/DOCUSATE 8.6/50MG TABLET. PO ×4 (08:07→20:48)
[2017-12-13] MEDS: PREGABALIN 50 MG CAPSULE PO ×4 (08:07→20:44)
[2017-12-13] MEDS: SEVELAMER CARBONATE 800 MG TABLET. PO ×6 (08:07→17:06)
[2017-12-13] MEDS: OXYMETAZOLINE 0.05% NASAL SPRAY 30ML BOTTLE. NS ×4 (08:07→20:48)
[2017-12-13] MEDS: LIDOCAINE (700MG/PATCH) PATCH. TD ×2 (08:07)
[2017-12-13] MEDS: MINERAL OIL/PETROLATUM TOPICAL CREAM 113GM JAR. TP ×2 (08:08)
[2017-12-13] MEDS: ACETAMINOPHEN 325 MG TABLET. PO ×2 (10:05)
[2017-12-13] MEDS ORDERED: MAGNESIUM SULFATE 2GM 50 ML IV ×2 (10:30)
[2017-12-13] MEDS: SODIUM THIOSULFATE 25 GM in TOTAL VOLUME 0 ML IV (12:00)
[2017-12-13] MEDS: CETIRIZINE HCL 10 MG TABLET. PO ×2 (20:44)
[2017-12-13] MEDS: PARoxetine 20 MG TABLET PO ×2 (20:44)
[2017-12-13] MEDS: MONTELUKAST SODIUM 10 MG TABLET. PO ×2 (20:44)
[2017-12-13] MEDS: FOLIC/VIT B COMP W-C (RENAL) TABLET. PO ×2 (20:44)
[2017-12-13] MEDS: amLODIPine BESYLATE 10 MG TABLET PO ×2 (20:45)
[2017-12-14] MEDS: HYDROcodone/APAP 10/325 1 TAB TABLET PO ×12 (00:48→22:36)
[2017-12-14 06:00] LABS: HEMOGLOBIN 7.3 g/dL (12.0-15.5)
[2017-12-14] MEDS: PANTOPRAZOLE 40 MG TABLET.DR. PO ×4 (06:10→17:08)
[2017-12-14] MEDS: LEVOTHYROXINE 100 MCG TABLET PO ×2 (06:10)
[2017-12-14 06:26] LABS: ALBUMIN 2.2 g/dL (3.4-5.0); ANION GAP 10 (6-14); BLOOD UREA NITROGEN 42 mg/dL (7-20); CALCIUM 8.9 mg/dL (8.5-10.1); CARBON DIOXIDE 31 mmol/L (21-32); CHLORIDE 98 mmol/L (98-107); CREATININE 4.2 mg/dL (0.6-1.0); GFR 11.6; GLUCOSE 85 mg/dL (70-99); PHOSPHORUS 5.1 mg/dL (2.6-4.7); POTASSIUM 5.1 mmol/L (3.5-5.1); SODIUM 139 mmol/L (136-145)
[2017-12-14] MEDS: SEVELAMER CARBONATE 800 MG TABLET. PO ×6 (08:44→17:08)
[2017-12-14] MEDS: SENNOSIDES/DOCUSATE 8.6/50MG TABLET. PO ×4 (08:44→21:03)
[2017-12-14] MEDS: ASPIRIN ENTERIC COATED 81 MG TABLET.DR. PO ×2 (08:44)
[2017-12-14] MEDS: PREGABALIN 50 MG CAPSULE PO ×4 (08:44→21:03)
[2017-12-14] MEDS: LIDOCAINE (700MG/PATCH) PATCH. TD ×2 (08:45)
[2017-12-14] MEDS: MINERAL OIL/PETROLATUM TOPICAL CREAM 113GM JAR. TP ×2 (08:45)
[2017-12-14] MEDS: OXYMETAZOLINE 0.05% NASAL SPRAY 30ML BOTTLE. NS ×4 (08:50→21:00)
[2017-12-14] MEDS: ONDANSETRON ODT 4 MG TAB.RAPDIS. PO ×2 (14:16)
[2017-12-14] MEDS: VANCOMYCIN 500 MG in IV DEXTROSE 5% 100 ML IV (18:13)
[2017-12-14] MEDS: VANCOMYCIN 1 GM in IV 1/2 NORMAL SALINE 250 ML IV (19:58)
[2017-12-14] MEDS: ONDANSETRON PF 4 MG/2 ML VIAL. IV ×2 (20:55)
[2017-12-14] MEDS: CETIRIZINE HCL 10 MG TABLET. PO ×2 (20:56)
[2017-12-14] MEDS: FOLIC/VIT B COMP W-C (RENAL) TABLET. PO ×2 (20:56)
[2017-12-14] MEDS: amLODIPine BESYLATE 10 MG TABLET PO ×2 (21:02)
[2017-12-14] MEDS: MONTELUKAST SODIUM 10 MG TABLET. PO ×2 (21:03)
[2017-12-14] MEDS: PARoxetine 20 MG TABLET PO ×2 (21:03)
[2017-12-14] MEDS: LACTOBACILLUS RHAMNOSUS GG 1 CAPSULE. PO ×2 (21:03)
[2017-12-14] MEDS: DARBEPOETIN ALFA 100 MCG/0.5 ML DISP.SYRIN. SQ ×2 (21:04)
[2017-12-14] MEDS: PIPERACILLIN/TAZOBACTAM 2.25 GM in IV NORMAL SALINE 50ML 50 ML IV (22:34)
[2017-12-15 05:24] LABS: ADD MAN DIFF? NO
[2017-12-15 05:45] LABS: BASO # 0.1 x10^3/uL (0.0-0.2); BASO % 1 % (0-3); EOS # 0.3 x10^3/uL (0.0-0.7); EOS % 3 % (0-3); HEMATOCRIT 24.1 % (36.0-47.0); HEMOGLOBIN 7.5 g/dL (12.0-15.5); LYMPH # 1.7 x10^3/uL (1.0-4.8); LYMPH % 18 % (24-48); MEAN CORPUSCULAR HEMOGLOBIN 30 pg (25-35); MEAN CORPUSCULAR HGB CONC 31 g/dL (31-37); MEAN CORPUSCULAR VOLUME 98 fL (79-100); MONO # 1.1 x10^3/uL (0.0-1.1); MONO % 12 % (0-9); NEUT % 65 % (31-73); PLATELET COUNT 130 x10^3/uL (140-400); RED BLOOD COUNT 2.46 x10^6/uL (3.50-5.40); RED CELL DISTRIBUTION WIDTH 20.6 % (11.5-14.5); WHITE BLOOD COUNT 9.3 x10^3/uL (4.0-11.0)
[2017-12-15 05:54] LABS: ALBUMIN 2.1 g/dL (3.4-5.0); ANION GAP 12 (6-14); BLOOD UREA NITROGEN 56 mg/dL (7-20); CALCIUM 8.8 mg/dL (8.5-10.1); CARBON DIOXIDE 27 mmol/L (21-32); CHLORIDE 97 mmol/L (98-107); CREATININE 4.9 mg/dL (0.6-1.0); GFR 9.7; GLUCOSE 74 mg/dL (70-99); PHOSPHORUS 6.4 mg/dL (2.6-4.7); SODIUM 136 mmol/L (136-145)
[2017-12-15] MEDS: LEVOTHYROXINE 100 MCG TABLET PO ×2 (06:12)
[2017-12-15] MEDS: PANTOPRAZOLE 40 MG TABLET.DR. PO ×4 (06:13→16:34)
[2017-12-15] MEDS: HYDROcodone/APAP 10/325 1 TAB TABLET PO ×6 (06:13→20:28)
[2017-12-15] MEDS ORDERED: IV NORMAL SALINE 1000ML BAG 1,000 ML IV ×4 (07:53)
[2017-12-15] MEDS: ASPIRIN ENTERIC COATED 81 MG TABLET.DR. PO ×2 (07:55)
[2017-12-15] MEDS: SEVELAMER CARBONATE 800 MG TABLET. PO ×6 (07:55→16:34)
[2017-12-15] MEDS ORDERED: DIALYSIS PATIENT. MC ×4 (08:00)
[2017-12-15] MEDS: ONDANSETRON PF 4 MG/2 ML VIAL. IV ×2 (08:48)
[2017-12-15] MEDS: MINERAL OIL/PETROLATUM TOPICAL CREAM 113GM JAR. TP ×2 (09:00)
[2017-12-15] MEDS: LIDOCAINE (700MG/PATCH) PATCH. TD ×2 (09:00)
[2017-12-15] MEDS: OXYMETAZOLINE 0.05% NASAL SPRAY 30ML BOTTLE. NS ×4 (09:00→20:30)
[2017-12-15] MEDS: LIDOCAINE 1% PF 2 ML VIAL. INJ ×2 (09:10)
[2017-12-15] MEDS: SODIUM THIOSULFATE 25 GM in TOTAL VOLUME 0 ML IV (11:29)
[2017-12-15] MEDS: VANCOMYCIN PER PHARMACY MC ×2 (12:08)
[2017-12-15] MEDS: PIPERACILLIN/TAZOBACTAM 2.25 GM in IV NORMAL SALINE 50ML 50 ML IV ×2 (13:16→20:32)
[2017-12-15] MEDS: PREGABALIN 50 MG CAPSULE PO ×4 (13:16→20:28)
[2017-12-15] MEDS: SENNOSIDES/DOCUSATE 8.6/50MG TABLET. PO ×4 (13:16→20:27)
[2017-12-15] MEDS: LACTOBACILLUS RHAMNOSUS GG 1 CAPSULE. PO ×4 (13:17→20:27)
[2017-12-15] MEDS: VANCOMYCIN 500 MG in IV DEXTROSE 5% 100 ML IV (15:07)
[2017-12-15] MEDS: amLODIPine BESYLATE 10 MG TABLET PO ×2 (20:28)
[2017-12-15] MEDS: CETIRIZINE HCL 10 MG TABLET. PO ×2 (20:28)
[2017-12-15] MEDS: PARoxetine 20 MG TABLET PO ×2 (20:28)
[2017-12-15] MEDS: FOLIC/VIT B COMP W-C (RENAL) TABLET. PO ×2 (21:57)
[2017-12-15] MEDS: MONTELUKAST SODIUM 10 MG TABLET. PO ×2 (21:57)
[2017-12-16] MEDS: HYDROcodone/APAP 10/325 1 TAB TABLET PO ×10 (00:28→21:42)
[2017-12-16] MEDS: ONDANSETRON PF 4 MG/2 ML VIAL. IV ×8 (00:31→21:43)
[2017-12-16 05:57] LABS: MAGNESIUM 1.7 mg/dL (1.8-2.4)
[2017-12-16 05:59] LABS: ALBUMIN 2.1 g/dL (3.4-5.0); ANION GAP 9 (6-14); BLOOD UREA NITROGEN 38 mg/dL (7-20); CALCIUM 8.5 mg/dL (8.5-10.1); CARBON DIOXIDE 34 mmol/L (21-32); CHLORIDE 99 mmol/L (98-107); CREATININE 3.7 mg/dL (0.6-1.0); GFR 13.4; GLUCOSE 89 mg/dL (70-99); POTASSIUM 4.2 mmol/L (3.5-5.1); SODIUM 142 mmol/L (136-145)
[2017-12-16] MEDS: LEVOTHYROXINE 100 MCG TABLET PO ×2 (06:29)
[2017-12-16] MEDS: PANTOPRAZOLE 40 MG TABLET.DR. PO ×4 (06:30→16:54)
[2017-12-16] MEDS: SEVELAMER CARBONATE 800 MG TABLET. PO ×6 (08:00→16:54)
[2017-12-16] MEDS: ASPIRIN ENTERIC COATED 81 MG TABLET.DR. PO ×2 (08:00)
[2017-12-16] MEDS: SENNOSIDES/DOCUSATE 8.6/50MG TABLET. PO ×4 (09:00→21:00)
[2017-12-16] MEDS: OXYMETAZOLINE 0.05% NASAL SPRAY 30ML BOTTLE. NS ×4 (09:00→21:00)
[2017-12-16] MEDS: PREGABALIN 50 MG CAPSULE PO ×4 (09:00→21:43)
[2017-12-16] MEDS: LACTOBACILLUS RHAMNOSUS GG 1 CAPSULE. PO ×4 (09:13→21:42)
[2017-12-16] MEDS: LIDOCAINE (700MG/PATCH) PATCH. TD ×2 (09:15)
[2017-12-16] MEDS: PIPERACILLIN/TAZOBACTAM 2.25 GM in IV NORMAL SALINE 50ML 50 ML IV ×2 (09:15→21:43)
[2017-12-16] MEDS: MINERAL OIL/PETROLATUM TOPICAL CREAM 113GM JAR. TP ×2 (09:19)
[2017-12-16] MEDS: VANCOMYCIN PER PHARMACY MC ×2 (13:30)
[2017-12-16] MEDS: MONTELUKAST SODIUM 10 MG TABLET. PO ×2 (21:42)
[2017-12-16] MEDS: amLODIPine BESYLATE 10 MG TABLET PO ×2 (21:42)
[2017-12-16] MEDS: CETIRIZINE HCL 10 MG TABLET. PO ×2 (21:43)
[2017-12-16] MEDS: PARoxetine 20 MG TABLET PO ×2 (21:43)
[2017-12-16] MEDS: FOLIC/VIT B COMP W-C (RENAL) TABLET. PO ×2 (21:43)
[2017-12-16] MEDS: LOPERAMIDE 2 MG CAPSULE PO ×2 (22:36)
[2017-12-17] MEDS: LOPERAMIDE 2 MG CAPSULE PO ×2 (00:30)
[2017-12-17] MEDS: HYDROcodone/APAP 10/325 1 TAB TABLET PO ×8 (03:14→16:16)
[2017-12-17] MEDS: LEVOTHYROXINE 100 MCG TABLET PO ×2 (05:38)
[2017-12-17] MEDS: PANTOPRAZOLE 40 MG TABLET.DR. PO ×4 (05:38→16:15)
[2017-12-17 06:01] LABS: ALBUMIN 2.1 g/dL (3.4-5.0); ANION GAP 9 (6-14); BLOOD UREA NITROGEN 51 mg/dL (7-20); CALCIUM 8.3 mg/dL (8.5-10.1); CARBON DIOXIDE 33 mmol/L (21-32); CHLORIDE 102 mmol/L (98-107); CREATININE 4.9 mg/dL (0.6-1.0); GFR 9.7; GLUCOSE 85 mg/dL (70-99); MAGNESIUM 1.7 mg/dL (1.8-2.4); PHOSPHORUS 5.7 mg/dL (2.6-4.7); POTASSIUM 4.7 mmol/L (3.5-5.1); SODIUM 144 mmol/L (136-145)
[2017-12-17] MEDS: ASPIRIN ENTERIC COATED 81 MG TABLET.DR. PO ×2 (08:00)
[2017-12-17] MEDS: LACTOBACILLUS RHAMNOSUS GG 1 CAPSULE. PO ×2 (08:18)
[2017-12-17] MEDS: PREGABALIN 50 MG CAPSULE PO ×2 (08:18)
[2017-12-17] MEDS: SENNOSIDES/DOCUSATE 8.6/50MG TABLET. PO ×2 (08:18)
[2017-12-17] MEDS: SEVELAMER CARBONATE 800 MG TABLET. PO ×4 (08:18→11:50)
[2017-12-17] MEDS: PIPERACILLIN/TAZOBACTAM 2.25 GM in IV NORMAL SALINE 50ML 50 ML IV (08:19)
[2017-12-17] MEDS: OXYMETAZOLINE 0.05% NASAL SPRAY 30ML BOTTLE. NS ×2 (08:19)
[2017-12-17] MEDS: MINERAL OIL/PETROLATUM TOPICAL CREAM 113GM JAR. TP ×2 (08:19)
[2017-12-17] MEDS: LIDOCAINE (700MG/PATCH) PATCH. TD ×2 (09:00)
[2017-12-17] MEDS: AMOXICILLIN/K CLAV 500/125MG TABLET. PO ×2 (11:50)
[2017-12-17] MEDS: ONDANSETRON ODT 4 MG TAB.RAPDIS. PO ×2 (12:41)
== END 2017-12-17 16:51 | DRG 70 ==
LOC: ER 11:46 → 4 NORTH 15:48
PROC: 5A1D70Z Performance of Urinary Filtration, Intermittent, Less than 6 Hours Per Day (ICD-10-PCS; principal; 2017-12-08)
PROC: 5A1D70Z Performance of Urinary Filtration, Intermittent, Less than 6 Hours Per Day (ICD-10-PCS; 2017-12-13)
PROC: 5A1D70Z Performance of Urinary Filtration, Intermittent, Less than 6 Hours Per Day (ICD-10-PCS; 2017-12-15)
DX: G93.41 Metabolic encephalopathy (principal); N18.6 End stage renal disease; G92 Toxic encephalopathy; I13.2 Hypertensive heart and chronic kidney disease with heart failure and with stage 5 chronic kidney disease, or end stage renal disease; C90.00 Multiple myeloma not having achieved remission; R78.81 Bacteremia; E11.22 Type 2 diabetes mellitus with diabetic chronic kidney disease; R18.8 Other ascites; I50.43 Acute on chronic combined systolic (congestive) and diastolic (congestive) heart failure; Q61.3 Polycystic kidney, unspecified; J98.11 Atelectasis; E83.59 Other disorders of calcium metabolism; B96.89 Other specified bacterial agents as the cause of diseases classified elsewhere; Z99.2 Dependence on renal dialysis; D63.1 Anemia in chronic kidney disease; F32.9 Major depressive disorder, single episode, unspecified; F41.9 Anxiety disorder, unspecified; G47.00 Insomnia, unspecified; G89.29 Other chronic pain; J44.9 Chronic obstructive pulmonary disease, unspecified; K21.9 Gastro-esophageal reflux disease without esophagitis; K58.0 Irritable bowel syndrome with diarrhea; M47.9 Spondylosis, unspecified; M79.7 Fibromyalgia; R04.0 Epistaxis; R13.10 Dysphagia, unspecified; T40.605A Adverse effect of unspecified narcotics, initial encounter; Z82.49 Family history of ischemic heart disease and other diseases of the circulatory system; Z83.3 Family history of diabetes mellitus; Z87.11 Personal history of peptic ulcer disease; Z92.21 Personal history of antineoplastic chemotherapy; Z98.84 Bariatric surgery status; Z99.81 Dependence on supplemental oxygen; Z98.51 Tubal ligation status; Z87.01 Personal history of pneumonia (recurrent); Z90.49 Acquired absence of other specified parts of digestive tract
CPT/HCPCS: 36415; 70450; 71045; 74018; 74176; 80048; 80053; 80069; 80307; 81001; 83605; 83735; 83880; 84443; 84484; 85018; 85025; 85027; 86706; 87040; 87101; 87205; 87340; 92526-GN; 92610-GN; 93005; 97162-GP; 97166-GO; 97530-GP; 99285; 99285-25; G0480; J0881; J2270; J2405; J2543; J3370; P9612; Q0162